=== PATIENT | female | born 1960 | race Caucasian/White ===

== ENCOUNTER 2017-11-15 20:26 | Emergency (ER) | payer MEDICAID, SELFPAY ==
[2017-11-15 20:27] VITALS: BP 164/116; PULSE 93; RESP 24; TEMP 36.3; O2SAT 100; BMI 22.4
--- NOTE | 2017-11-15 21:12 | ED.DCSUM_ITS ---
- ER Visit Summary Date of Service: 11/15/17 Chief Complaint: Allergic reaction History of Present Illness: The patient is a 57 F who presents with allergic reaction that began tonight. Patient denies any new foods, soaps, shampoos, detergents, or fabric softeners. Patient was started on several new medications last week. Patient has been taking them without any problems until tonight. Patient was having difficulty breathing earlier tonight. EMS administered Benadryl and an EpiPen. Patient is feeling better at the present time. Currently, patient denies any shortness of breath. Patient denies any itching at the present time. Patient was complaining of severe pruritus earlier today. Patient denies any difficulty swallowing. Physical Examination: Vital signs are stable. Patient is afebrile. Patient is in no acute distress. Oral mucosa is pink and moist. Oropharynx is clear. Airway is patent. There is no edema noted. Neck is supple. There is no JVD. Heart was regular rate and rhythm. Lungs are clear and equal bilaterally. There is good respiratory effort noted. Abdomen is soft and nontender. Bowel sounds are normal. Cranial nerves II through XII are intact. There are no focal motor or sensory deficits noted. Skin is warm and dry. There is some areas of urticaria noted. There are no vesicles or pustules noted. The remaining physical exam is within normal limits. Emergency Department Course and Treatment: She was given IV fluids. Patient was given Solu-Medrol and Pepcid. CBC and basic metabolic profile were obtained. There is mild leukocytosis of 12.4. The remaining labs were within normal limits. Patient felt better on reevaluation. Patient was given a prescription for prednisone. Patient was instructed to follow-up with her primary care physician in 3-5 days. Patient understood and was agreeable with the plan. All questions were answered. Disposition: Discharge home Impression: Allergic reaction This note was generated with [employer] dictation software. It may contain incorrect words, spelling, and punctuation that were not noted in review of the chart prior to signing ED Disposition - Plan for ED Patient: Disposition: Home or Assisted Living Chief Complaint: Allergic Reaction Diagnosis: Allergic reaction Instructions: ED Allergic Reaction General Other Prescriptions: Prednisone [Deltasone] 60 mg PO DAILY 5 Days #15 tab Referrals: Cheryl Almanza NP-C [Primary Care Provider] -
[2017-11-15] MEDS: MethylPREDNISolone 125 MG/2 ML Vial IV (21:17)
[2017-11-15 21:26] LABS: Basophil# 0.06 X10^3/uL; Basophil% 0.5 % (0-1); Eosinophil# 0.19 X10^3/uL; Eosinophils% 1.5 % (0-5); Hematocrit 42.4 % (37-47); Hemoglobin 14.1 g/dl (12.0-15.0); Lymphocyte % 45.2 % (19-41); Mean Corp Hgb Conc 33.3 g/gl (32-36); Mean Corpuscular Hgb 27.9 pg (27.0-32.0); Mean Corpuscular Volume 83.8 fL (81-99); Mean Platelet Vol. 11.4 fl (6.2-12.0); Monocyte# 1.51 X10^3/uL; Monocyte% 12.2 % (0-10); Neutrophil # 5.01 X10^3/uL (2.7-7.7); Neutrophil % 40.4 % (47-70); Platelet Count 347 K/mm3 (150-450); RBC Distribution Width CV 17.7 % (11.6-14.6); RBC Distribution Width SD 53.8 fl (35.1-43.9); Red Blood Count 5.06 M/mm3 (4.2-5.4); White Blood Count 12.4 K/mm3 (4.4-11.0)
[2017-11-15 21:27] LABS: Differential Indicated SCAN CRITERIA MET; POSITIVE COUNT NO; POSITIVE DIFFERENTIAL YES; POSITIVE MORPHOLOGY NO
[2017-11-15 21:55] LABS: Differential Comment SCANNED
[2017-11-15 22:29] VITALS: BP 142/91; PULSE 95; RESP 14; O2SAT 95
[2017-11-15 22:30] LABS: Anion Gap 8 (5-15); BUN 15 mg/dL (7-18); Calcium,Total 8.4 mg/dL (8.5-10.1); Chloride 110 mmol/L (98-107); Creatinine, Serum 0.83 mg/dL (0.55-1.02); EST Glomerular Filtration Rate 75 mL/min (>60); Est Glom Filt Rate - Afr Amer 91 mL/min (>60); Estimated Creatinine Clearance 65.35 ml/min; Glucose 121 mg/dL (74-106); Potassium 4.3 mmol/L (3.5-5.1); Sodium Level 142 mmol/L (136-145)
[2017-11-15 23:21] VITALS: BP 151/98; PULSE 95; RESP 16; O2SAT 96
[2017-11-15 23:46] VITALS: BP 147/94; PULSE 105; RESP 18; O2SAT 95
== END 2017-11-15 23:47 | disposition home or self-care (01) ==
PROVIDERS: Emergency Provider Emergency Medicine; Family Provider Nurse Practitioner Family; PCP Nurse Practitioner Family
DX: L50.0 Allergic urticaria (principal); R06.00 Dyspnea, unspecified; Z79.899 Other long term (current) drug therapy
CPT/HCPCS: 80048; 85025; 96365; 96375; 99285; J7050; A4216; J3490

== ENCOUNTER 2018-07-11 16:28 | Emergency (ER) | payer MEDICARE, MEDICAID, SELFPAY ==
[2018-07-11 16:29] VITALS: BP 192/129; PULSE 118; RESP 15; TEMP 36.5; O2SAT 98; BMI 21.0
--- NOTE | 2018-07-11 16:48 | EKG12_ITS ---
Test Reason : VOMITTING Blood Pressure : / mmHG Vent. Rate : 099 BPM Atrial Rate : 099 BPM P-R Int : 142 ms QRS Dur : 082 ms QT Int : 412 ms P-R-T Axes : 036 056 065 degrees QTc Int : 528 ms Normal sinus rhythm Possible Left atrial enlargement Nonspecific ST abnormality Prolonged QT Abnormal ECG Confirmed by CYNDY SAHU, LANCE ([id number]), visual effects editor ARTHUR MARTINEZ ([id number] on 07/14/2018 2:31:00 PM Referred By: RAMIREZ Confirmed By:LANCE NAYLOR MD
--- NOTE | 2018-07-11 16:51 | ED.DCSUM_ITS ---
- ER Visit Summary Date of Service: 07/11/18 Chief Complaint: [] Vomiting diarrhea for about 4 days History of Present Illness: The patient is a 58 F [] history of hypertension depression she indicates she had vomiting and diarrhea for 4 days she vomits 4-5 times a day, has 4 or 5 watery diarrheal bowel movements, she has had no exposures to tainted food or sick individuals or antibiotics she is not prone to vomiting diarrhea she has no GI elements no prior abdominal surgeries which indicates for day or 2 she is not taken her blood pressure medicine but she has them at home Physical Examination: [] 190/109 heart rate 110 she seems very anxious General, no distress resting comfortably HEENT is generally unremarkable The neck is supple no adenopathy Cardiovascular, regular rate and rhythm Lungs, clear bilateral Abdomen, soft nontender, there is no rebound guarding organomegaly in any area Extremities, no clubbing cyanosis or edema Neurologic, awake alert answering questions appropriately moving all 4 extremities Test Results: [] Emergency Department Course and Treatment: [] Given her complaints screening labs fluids She is screening labs are all generally unremarkable, she is able to take oral potassium supplementation, her oral blood pressure meds which she kept down she has had no diarrhea since she has been here she has had IV fluids she is feeling better her current blood pressure is 170/80 and her heart rate is about 95 long conversation with her she is feeling better she wants to go home she understands this advance her diet slowly follow-up with her primary care outpatient providers and return for change in symptoms Treatment Plan: [] Disposition: [] Home stable Impression: [] Vomiting and diarrhea resolved etiology here This note was generated with [employer] dictation software. It may contain incorrect words, spelling, and punctuation that were not noted in review of the chart prior to signing ED Disposition - Plan for ED Patient: Chief Complaint: Nausea/Vomiting/Diarrhea Referrals: Cheryl Almanza, MUSIC COMPOSER-C [Primary Care Provider] -
[2018-07-11] MEDS: Ondansetron 4 MG/2 ML Vial IV (16:58)
[2018-07-11] MEDS: Morphine 4 MG/ML Syringe IV (16:58)
[2018-07-11] MEDS: 0.9% Normal Saline 1,000 ML 1000 ML IV (16:58)
[2018-07-11] MEDS: amLODIPine 5 MG Tablet PO (17:05)
[2018-07-11 17:06] VITALS: BP 210/163; PULSE 108; RESP 14; O2SAT 100
[2018-07-11] MEDS: Lisinopril 20 MG Tablet PO (17:06)
[2018-07-11 17:14] LABS: Absolute Lymphocyte Count 0.86 X10^3/ul (0.83-4.51); Basophil# 0.02 X10^3/uL; Basophil% 0.3 % (0-1); Hematocrit 48.8 % (37-47); Hemoglobin 17.3 g/dl (12.0-15.0); Lymphocyte # 0.86 X10^3/ul (4.0); Lymphocyte % 13.2 % (19-41); Mean Corp Hgb Conc 35.5 g/gl (32-36); Mean Corpuscular Hgb 32.1 pg (27.0-32.0); Mean Corpuscular Volume 90.5 fL (81-99); Mean Platelet Vol. 10.8 fl (6.2-12.0); Monocyte# 0.63 X10^3/uL; Monocyte% 9.6 % (0-10); Neutrophil # 5.01 X10^3/uL (2.7-7.7); Neutrophil % 76.7 % (47-70); Platelet Count 122 K/mm3 (150-450); RBC Distribution Width CV 18.1 % (11.6-14.6); RBC Distribution Width SD 60.3 fl (35.1-43.9); Red Blood Count 5.39 M/mm3 (4.2-5.4); White Blood Count 6.5 K/mm3 (4.4-11.0)
[2018-07-11 17:15] LABS: POSITIVE COUNT NO; POSITIVE DIFFERENTIAL NO; POSITIVE MORPHOLOGY NO
[2018-07-11 17:50] LABS: AST(SGOT) 65 U/L (15-37); Alanine Aminotransfer ALT/SGPT 42 U/L (13-56); Albumin, Serum 3.4 g/dL (3.2-5.0); Alkaline Phosphatase 120 U/L (45-117); Anion Gap 15 (5-15); BUN 5 mg/dL (7-18); BUN/Creat Ratio 6.5 RATIO (10-20); Bilirubin, Direct 0.48 mg/dL (0.00-0.30); Calcium,Total 8.6 mg/dL (8.5-10.1); Chloride 89 mmol/L (98-107); Creatinine, Serum 0.76 mg/dL (0.55-1.02); EST Glomerular Filtration Rate 83 mL/min (>60); Est Glom Filt Rate - Afr Amer 100 mL/min (>60); Estimated Creatinine Clearance 70.52 ml/min; Globulin 3.8 g/dL (2.2-4.2); Glucose 137 mg/dL (74-106); Lipase 46 U/L (73-393); Potassium 2.7 mmol/L (3.5-5.1); Protein, Total 7.2 g/dL (6.4-8.2); Sodium Level 134 mmol/L (136-145)
--- NOTE | 2018-07-11 17:56 | ED.RN ---
LAB CALLED CRITICAL RESULT ON THIS PT FOR A POTASSIUM OF 2.7. THIS NURSE NOTIFIED DR BARTHOLOMEW WHO STATED TO PUT IN AN ORDER FOR 40 MEQ OF K-DUR FOR THIS PT
[2018-07-11 18:33] VITALS: BP 172/123; PULSE 95; RESP 16; O2SAT 98
--- NOTE | 2018-07-11 18:48 | DCINST.ED_ITS ---
ED Disposition - Plan for ED Patient: Chief Complaint: Nausea/Vomiting/Diarrhea Instructions: ED Diet Vomiting Diarrhea, ED Food Poison Or Gastroenteritis Prescriptions: Ondansetron [Zofran Odt] 4 mg PO Q8H PRN PRN #10 tab PRN Reason: Nausea Referrals: Cheryl Almanza, TEXTILE CUTTING MACHINE OPERATOR-C [Primary Care Provider] -
[2018-07-11 19:02] VITALS: BP 172/123; PULSE 102; RESP 16; O2SAT 97
== END 2018-07-11 19:07 | disposition home or self-care (01) ==
PROVIDERS: Emergency Provider Emergency Medicine; Family Provider Nurse Practitioner Family; PCP Nurse Practitioner Family
DX: R11.10 Vomiting, unspecified (principal); R19.7 Diarrhea, unspecified; I10 Essential (primary) hypertension; F32.9 Major depressive disorder, single episode, unspecified; Z79.899 Other long term (current) drug therapy
CPT/HCPCS: 80048; 80076; 83690; 84484; 85025; 93005; 96361; 96374; 96375; 99285; J7030; A4216; J2405

== ENCOUNTER 2019-01-17 23:14 | Inpatient (IN) | payer MEDICARE, SELFPAY ==
[2019-01-17 23:15] VITALS: BP 189/162; PULSE 131; RESP 17; TEMP 36.7; O2SAT 96; BMI 24.5
--- NOTE | 2019-01-17 23:41 | EKG12_ITS ---
Test Reason : SUBSTANCE ABUSE Blood Pressure : / mmHG Vent. Rate : 127 BPM Atrial Rate : 127 BPM P-R Int : 126 ms QRS Dur : 070 ms QT Int : 332 ms P-R-T Axes : 045 071 064 degrees QTc Int : 482 ms Sinus tachycardia Low Voltage QRS (Limb Leads) Nonspecific ST abnormality Abnormal ECG Confirmed by ASHUTOSH SAHU, PERRI ([id number]), slot editor HEBERT GARZON ([id number]) on 01/19/2019 9:33:11 AM Referred By: Musa Navarrete Confirmed By:PERRI BOYKIN MD
--- NOTE | 2019-01-17 23:44 | ED.VIS.GEN ---
History of Present Illness Chief Complaint: Substance Abuse Informant: Patient Narrative: She here with her daughter stating that she is withdrawing from narcotics. Her last use was yesterday. She is been using for the last 10 days in a row IV fentanyl. She states she is been using at least twice a day. She also is a chronic alcoholic. She did drink one tall alcoholic beverage today. She states she normally drinks 5 told drinks of beer per day. She does not think she is withdrawing from alcohol. She thinks she is having shakes headaches myalgias sweats coldness nausea and vomiting from withdrawal from the narcotics that she was using. She normally does not use this frequently. Occasional usage of marijuana. Brought in by her daughter for symptom control. No home treatment. - Past Medical History (1) Benign essential HTN Status: Chronic (2) Depression Status: Chronic (3) Gastroesophageal reflux disease Status: Chronic (4) HLD (hyperlipidemia) Status: Chronic Past Medical History - Allergies and Home Meds Allergies/Adverse Reactions: Allergies No Known Allergies Allergy (Verified 01/17/19 23:15) Primary Care Physician: Cheryl Almanza NP-C [Primary Care Provider] - Prior records reviewed: Yes Surgical History: - - Reviewed Smoking Status: Current every day smoker Alcohol: Heavy Drugs: - - See HPI Review of Systems General: Reports: Chills, Sweats. Denies: Fever Eyes: Denies: Visual changes - bilaterally, Diplopia ENT: Denies: Rhinorrhea, Sore throat Cardiovascular: Denies: Chest pain, Palpitations Respiratory: Denies: Dyspnea, Cough, Dyspnea on exertion Gastrointestinal: Reports: Nausea, Vomiting. Denies: Abdominal pain, Diarrhea, Melena, Hematochezia Genitourinary: Denies: Dysuria, Hematuria, Frequency Musculoskeletal: Reports: Myalgias, Arthralgias, Back pain, Extremity Pain Skin: Denies: Rash, Wounds Neurological: Denies: Headache, Weakness, Numbness Physical Exam Vital Signs/Narrative: Vital Signs Temp Pulse Resp BP Pulse Ox 01/17/19 23:15 98.0 F 131 H 17 189/162 H 96 General: Well nourished, Well developed, - - Bell appears shaky. Negative for: No Acute Distress Head: Normocephalic, Atraumatic Eyes: Perrl, EOMI ENT: Moist mucous membranes, No rhinorrhea Neck: Supple, Nontender Cardiovascular: Regular rhythm, No murmurs, Tachycardia. Negative for: Regular rate Respiratory: No distress, CTA bilaterally, Chest nontender Abdomen: Soft, Nontender, Nondistended, Normal bowel sounds Back: Nontender, Normal Inspection Extremities: Nontender, No edema Skin: Normal color, No rash, - - Positive bruising to the bilateral AC upper extremity joints where she injected. No infection. Neurological: Alert, Oriented x3, Cranial nerves II-XII grossly intact, Normal Strength, Normal Sensation, - - Positive tremor Psychological: Agitated. Negative for: Normal affect, Normal Mood Diagnostic/Tx/Re-eval - Medical Decision Making Feel the patient is likely withdrawing from her narcotics. Given IV fluids, Zofran and Ativan and Toradol. EKG shows sinus tachycardia at a rate of 127 without acute ischemia. Lab work obtained. Lab work reviewed. She does have a leukocytosis but I think this is secondary to her withdrawal. Patient given IV fluids and felt much better after treatment. Given a dose of labetalol and hydralazine for her blood pressure. Is come down to 188 systolic. She was discussed with the hospitalist and will be admitted for further evaluation and treatment of her acute narcotic withdrawal. ED Disposition - Plan for ED Patient: Diagnosis: Acute narcotic withdrawal Referrals: Cheryl Almanza NP-C [Primary Care Provider] -
[2019-01-17 23:45] VITALS: BP 194/156; PULSE 127
[2019-01-18] VITALS (22 sets, daily range): BP systolic 115–214; BP diastolic 69–169; PULSE 87–126; RESP 18–22; TEMP 36.4–37.6; O2SAT 95–98; BMI 20.6; BMI 24.6
[2019-01-18] MEDS: Ketorolac 15 MG/ML Vial IV (00:16)
[2019-01-18] MEDS: LORazepam 2 MG/ML Syringe 1 MG IV (00:17)
[2019-01-18] MEDS: Ondansetron 4 MG/2 ML Vial IV ×3 (00:17→19:45)
[2019-01-18 00:30] LABS: Absolute Lymphocyte Count 0.95 X10^3/ul (0.83-4.51); Absolute Neutrophil Count 9.6 X10^3/uL (2.0-7.7); Basophil# 0.02 X10^3/uL; Basophil% 0.2 % (0-1); Hematocrit 46.7 % (37-47); Hemoglobin 16.5 g/dl (12.0-15.0); Lymphocyte # 0.95 X10^3/ul (4.0); Lymphocyte % 8.5 % (19-41); Mean Corp Hgb Conc 35.3 g/gl (32-36); Mean Corpuscular Hgb 29.8 pg (27.0-32.0); Mean Corpuscular Volume 84.4 fL (81-99); Mean Platelet Vol. 9.8 fl (6.2-12.0); Monocyte# 0.49 X10^3/uL; Monocyte% 4.4 % (0-10); Neutrophil # 9.64 X10^3/uL (2.7-7.7); Neutrophil % 86.6 % (47-70); Platelet Count 191 K/mm3 (150-450); RBC Distribution Width CV 17.1 % (11.6-14.6); RBC Distribution Width SD 52.7 fl (35.1-43.9); Red Blood Count 5.53 M/mm3 (4.2-5.4); White Blood Count 11.1 K/mm3 (4.4-11.0)
[2019-01-18 00:31] LABS: POSITIVE COUNT NO; POSITIVE DIFFERENTIAL NO; POSITIVE MORPHOLOGY NO
[2019-01-18] MEDS: 0.9% Normal Saline 1,000 ML 1000 ML IV ×2 (00:36)
[2019-01-18 00:47] LABS: ALB/GLOB Ratio 0.9 RATIO (0.9-2.4); AST(SGOT) 33 U/L (15-37); Alanine Aminotransfer ALT/SGPT 31 U/L (13-56); Albumin, Serum 3.8 g/dL (3.2-5.0); Alkaline Phosphatase 108 U/L (45-117); Anion Gap 8 (5-15); BUN 9 mg/dL (7-18); BUN/Creat Ratio 10.4 RATIO (10-20); Calcium,Total 9.7 mg/dL (8.5-10.1); Chloride 93 mmol/L (98-107); Creatinine, Serum 0.87 mg/dL (0.55-1.02); EST Glomerular Filtration Rate 72 mL/min (>60); Est Glom Filt Rate - Afr Amer 87 mL/min (>60); Estimated Creatinine Clearance 53.84 ml/min; Globulin 4.4 g/dL (2.2-4.2); Glucose 157 mg/dL (74-106); Potassium 3.7 mmol/L (3.5-5.1); Protein, Total 8.2 g/dL (6.4-8.2); Sodium Level 132 mmol/L (136-145)
[2019-01-18 02:02] LABS: Amphetamine Urine VISTA NEGATIVE (<1000 ng/mL); Barbiturate Urine VISTA NEGATIVE (< 200 ng/mL); Benzodiazepine Urine VISTA NEGATIVE (< 200 ng/mL); Cocaine Urine VISTA NEGATIVE (< 300 ng/mL); Ecstacy Urine VISTA NEGATIVE (< 500 ng/mL); Methadone Urine VISTA NEGATIVE (< 300 ng/mL); PCP Urine VISTA NEGATIVE (< 25 ng/mL); THC Urine VISTA NEGATIVE (< 50 ng/mL); Vista UDS pH Range 6
[2019-01-18] MEDS: hydrALAZINE 20 MG/ML Vial IV (02:16)
--- NOTE | 2019-01-18 03:09 | HP.PCM_ITS ---
Problem List (1) EtOH dependence Status: Acute (2) Acute narcotic withdrawal Status: Acute (3) HLD (hyperlipidemia) Status: Chronic (4) Depression Status: Chronic (5) Benign essential HTN Status: Chronic (6) Alcohol withdrawal Status: Acute History of Present Illness Date of Admission: 01/18/19 Chief Complaint: ALCOHOL AND NARCOTIC WITHDRAWAL The patient is a 58 year old F with a significant history of hypertension; depression and anxiety; narcotic dependence and alcohol dependence who presented to the emergency department because of withdrawal symptoms. Patient describes his withdrawal symptoms as light headedness; nausea; vomiting; tremors and chills. Settings have withdrawal started about 4 days ago. She reported drinking 3 tall cans of beer per day. Emergency department doctor reported that patient drinks 5 tall cans of beer per day. At the last time she drank alcohol was 2 days ago. Also she has been using IV fentanyl. The last time she used IV fentanyl was 3 days ago. She is supposed to be on blood pressure medication however she does not take her blood pressure medicines. Patient reported that she does not take any home medicine at all. Past Medical History Past Medical History (Chronic Problems): Chronic Problems HLD (hyperlipidemia) (Chronic) Gastroesophageal reflux disease (Chronic) Depression (Chronic) Benign essential HTN (Chronic) Allergies No Known Allergies Allergy (Verified 01/17/19 23:15) Home Medications: Ambulatory Orders Medication Instructions Recorded Amlodipine [Norvasc] 5 mg PO DAILY 11/15/17 Hydrochlorothiazide [Hctz] 25 mg PO DAILY 11/15/17 Lisinopril 20 mg PO DAILY 11/15/17 Pantoprazole Sodium [Protonix] 40 mg PO DAILY 11/15/17 Surgical History: - - Thyroid cyst surgery; rib removal Lives: With Family Smoking Status: Current every day smoker Tobacco Use: Cigarettes Alcohol: Heavy Drugs: - - See HPI - *Family History Maternal Family History: Family History (Last Updated 01/18/19 @ 04:11 by Musa Navarrete MD) Brother Alcoholism Father CVA (cerebral vascular accident) Review of Systems Constitutional: Reports: Chills. Denies: Fever HEENT: Denies: Head Aches, Sinus Congestion, Sinus Drainage Cardiovascular: Denies: Chest Pain, Palpitations Respiratory: Denies: Cough, Shortness of breath at rest, Sputum production Gastrointestinal: Reports: Nausea, Vomiting. Denies: Abdominal Pain Genitourinary: Denies: Dysuria Musculoskeletal: Denies: Joint Pain, Joint Tenderness Skin: Denies: Rash, Wounds Neurological: Denies: Numbness, Tingling, Focal weakness Psychiatric: Reports: Anxiety, Depression. Denies: Homicidal Ideations, Suicidal Ideations Hematologic/ Lymphatic: Denies: Easy Bruising, Easy Bleeding VTE Information - Inpt Only VTE Present on Admission: No VTE Mechan Device Prophylaxis: None VTE Pharm Prophylaxis ordered?: Yes Patient Problems: Active and Suspected Problems Acute narcotic withdrawal (Acute) EtOH dependence (Acute) Alcohol withdrawal (Acute) - Physical Exam General: Alert, Oriented x3, Cooperative HEENT: Atraumatic, PERRLA, EOMI, Normocephalic Neck: Supple, No JVD, Negative Carotid Bruits Lungs: Clear to auscultation, Normal air movement, Tachypneic Cardiovascular: No murmurs, Tachycardic Abdomen: Bowel Sounds Present, Soft, Non Tender Extremities: No edema, Capillary Refill Less than 3 Seconds Skin: No rashes, No breakdown Musculoskeletal: No Tenderness to Palpation of Joints or Extremities Neurological: Cranial nerves II-XII grossly intact, - - Tremors Psych/Mental Status: Anxious Vital Signs Temp Pulse Resp BP Pulse Ox 98.0 F 87 20 H 188/130 H 96 01/17/19 23:15 01/18/19 02:48 01/18/19 02:48 01/18/19 02:48 01/18/19 02:48 Oxygen Delivery Method Room Air Weight: 58.967 kg Body Mass Index (BMI) 24.5 Laboratory Tests Past 24 Hrs 01/18/19 01/18/19 01/18/19 00:20 00:20 00:20 WBC 11.1 H RBC 5.53 H Hgb 16.5 H Hct 46.7 MCV 84.4 MCH 29.8 MCHC 35.3 RDW 17.1 H RDW Differential 52.7 H Plt Count 191 MPV 9.8 Immature Gran % (Auto) 0.300 Neut % (Auto) 86.6 H Lymph % (Auto) 8.5 L Stark % (Auto) 4.4 Eos % (Auto) 0.0 Baso % (Auto) 0.2 Absolute Neuts (auto) 9.6 H Absolute Lymphs (auto) 0.95 Total Counted Not Reportable Sodium 132 L Potassium 3.7 Chloride 93 L Carbon Dioxide 31.0 Anion Gap 8 BUN 9 Creatinine 0.87 Estim Creat Clear Calc 53.84 Est GFR (MDRD) Af Amer 87 Est GFR (MDRD) Non-Af 72 BUN/Creatinine Ratio 10.4 Glucose 157 H Calcium 9.7 Total Bilirubin 1.60 H AST 33 ALT 31 Alkaline Phosphatase 108 Total Protein 8.2 Albumin 3.8 Globulin 4.4 H Albumin/Globulin Ratio 0.9 Urine Opiates Screen Urine Methadone Screen Ur Barbiturates Screen Ur Phencyclidine Scrn Ur Amphetamines Screen U Methamphetamin-MDMA U Benzodiazepines Scrn Urine Cocaine Screen U Cannabinoids Screen Ur Drug Screen Comment Ethyl Alcohol 4.0 01/18/19 01:40 WBC RBC Hgb Hct MCV MCH MCHC RDW RDW Differential Plt Count MPV Immature Gran % (Auto) Neut % (Auto) Lymph % (Auto) Stark % (Auto) Eos % (Auto) Baso % (Auto) Absolute Neuts (auto) Absolute Lymphs (auto) Total Counted Sodium Potassium Chloride Carbon Dioxide Anion Gap BUN Creatinine Estim Creat Clear Calc Est GFR (MDRD) Af Amer Est GFR (MDRD) Non-Af BUN/Creatinine Ratio Glucose Calcium Total Bilirubin AST ALT Alkaline Phosphatase Total Protein Albumin Globulin Albumin/Globulin Ratio Urine Opiates Screen NEGATIVE Urine Methadone Screen NEGATIVE Ur Barbiturates Screen NEGATIVE Ur Phencyclidine Scrn NEGATIVE Ur Amphetamines Screen NEGATIVE U Methamphetamin-MDMA NEGATIVE U Benzodiazepines Scrn NEGATIVE Urine Cocaine Screen NEGATIVE U Cannabinoids Screen NEGATIVE Ur Drug Screen Comment Ethyl Alcohol Assessment/Plan All Active Problems Acute narcotic withdrawal (Acute) EtOH dependence (Acute) Alcohol withdrawal (Acute) The patient is a 58 year old F with a significant history of hypertension; depression and anxiety; narcotic dependence and alcohol dependence who presented to the emergency department because of withdrawal symptoms attributed to alcohol and fentanyl. Alcohol dependence and withdrawal We will put on [facility] protocol with thiamine; folic acid and Librium. Counselled. Other supportive medications include thiamine; clonidine as needed; scheduled metoprolol; Zofran; and Mirapex. Check magnesium Urine drug screen was unremarkable. Acute narcotic withdrawal. Librium home in supportive medication as above. Hypertension Presently patient does not take any hypertensive medication at home. On presentation her blood pressure was not within goal. This could be due to alcohol withdrawal. Metoprolol as above. Tobacco abuse Nicotine patch ordered Counseled. DVT prophylaxis Subcutaneous Lovenox. Code Visit Inpatient E&M: 19244 Init Hosp L3
--- NOTE | 2019-01-18 03:18 | ED.RN ---
PT UNSURE OF MEDICATIONS AND DOSAGES
[2019-01-18] MEDS: Methocarbamol 750 MG Tablet PO ×3 (04:45→19:40)
[2019-01-18] MEDS: chlordiazePOXIDE 25 MG Capsule PO ×6 (04:45→23:44)
[2019-01-18] MEDS: cloNIDine HCl 0.1 MG Tablet PO ×4 (04:45→19:40)
[2019-01-18] MEDS: Acetaminophen 325 MG Tablet 650 MG PO ×3 (04:46→21:51)
[2019-01-18] MEDS: Metoprolol Tartrate 50 MG Tablet PO ×3 (04:54→21:55)
[2019-01-18] MEDS: proCHLORPERazine 10 MG/2 ML Vial 5 MG IV (06:16)
--- NOTE | 2019-01-18 06:30 | NURSING ---
spoke to pt's dtr, christopher ([phone]) to inform her pt had been admitted.
[2019-01-18] MEDS: Multivitamins,Therapeutic Tablet 1 TABLET PO (08:24)
[2019-01-18] MEDS: Thiamine Hydrochloride 100 MG Tablet PO (08:24)
[2019-01-18] MEDS: Folic Acid 1 MG Tablet PO (08:24)
[2019-01-18] MEDS: amLODIPine 5 MG Tablet PO (08:24)
[2019-01-18] MEDS: Lisinopril 20 MG Tablet PO (08:24)
--- NOTE | 2019-01-18 10:41 | CASEMGMT ---
Social Work Note [facility] consulted to see pt. SW to continue to follow. Felicia Cheema EARTH AUGER OPERATOR, BENEFITS ANALYST
--- NOTE | 2019-01-18 12:16 | NEWVISION ---
[facility] met with patient to discuss aftercare. Patient reports that she feels awful, is very wrestles, and doesn't know what she wants to do after she gets out. [facility] provided office phone number to call if she feels interested in assistance with aftercare and to become part of [facility] y end of day. Otherwise, we would check with her tomorrow to discuss.
--- NOTE | 2019-01-18 14:56 | PCM.HOSP.N ---
Hospitalist Note Patient was seen and examined today, she told this examiner that she did not abuse any drugs other than alcohol-from the patient's medical record appears that she was also using IV fentanyl when she was admitted. I am not sure the patient needs ongoing IV fluids, patient states she is able to drink fluids. According to nursing however, patient is not drinking or eating much. I have decided to leave her IV in for now along with IV fluids I will reassess her tomorrow.
[2019-01-18] MEDS: Pramipexole Di-HCl 0.25 MG Tablet PO (19:40)
[2019-01-18] MEDS: Dicyclomine 10 MG Capsule 20 MG PO (19:40)
[2019-01-18] MEDS: 0.9% NaCl Peripheral Flush Adult/Peds IV (19:45)
[2019-01-18] MEDS: Mag Hydrox/Al Hydrox/Simeth 30 ML UDC PO (19:45)
[2019-01-18] MEDS: Loperamide 2 MG Capsule PO ×2 (21:50→23:44)
[2019-01-18] MEDS: hydrOXYzine PAM 25 MG Capsule 50 MG PO (21:50)
[2019-01-18] MEDS: Menthol/Lanolin/Calamine/Znox 113 GM Tube 1 APPLIC TOPICAL (21:55)
[2019-01-19] VITALS (12 sets, daily range): BP systolic 90–119; BP diastolic 68–89; PULSE 68–118; RESP 16–20; TEMP 36.1–37.2; O2SAT 95–99
[2019-01-19] MEDS: proCHLORPERazine 10 MG/2 ML Vial 5 MG IV ×2 (00:55→13:49)
[2019-01-19] MEDS: 0.9% NaCl Peripheral Flush Adult/Peds IV ×3 (00:55→13:49)
[2019-01-19] MEDS: Methocarbamol 750 MG Tablet PO ×2 (02:17→08:30)
[2019-01-19] MEDS: Loperamide 2 MG Capsule PO ×2 (02:17→08:30)
[2019-01-19] MEDS: Dicyclomine 10 MG Capsule 20 MG PO ×3 (02:20→21:50)
[2019-01-19] MEDS: Ondansetron 4 MG/2 ML Vial IV (05:45)
[2019-01-19] MEDS: chlordiazePOXIDE 25 MG Capsule PO ×3 (05:45→21:50)
[2019-01-19 06:59] LABS: Anion Gap 11 (5-15); BUN 28 mg/dL (7-18); BUN/Creat Ratio 35.2 RATIO (10-20); Calcium,Total 8.6 mg/dL (8.5-10.1); Chloride 93 mmol/L (98-107); EST Glomerular Filtration Rate 79 mL/min (>60); Est Glom Filt Rate - Afr Amer 95 mL/min (>60); Estimated Creatinine Clearance 58.55 ml/min; Glucose 125 mg/dL (74-106); Potassium 2.9 mmol/L (3.5-5.1); Sodium Level 135 mmol/L (136-145)
[2019-01-19] MEDS: Lisinopril 20 MG Tablet PO (08:29)
[2019-01-19] MEDS: amLODIPine 5 MG Tablet PO (08:29)
[2019-01-19] MEDS: Thiamine Hydrochloride 100 MG Tablet PO (08:29)
[2019-01-19] MEDS: Multivitamins,Therapeutic Tablet 1 TABLET PO (08:29)
[2019-01-19] MEDS: Pramipexole Di-HCl 0.25 MG Tablet PO (08:29)
[2019-01-19] MEDS: Folic Acid 1 MG Tablet PO (08:29)
[2019-01-19] MEDS: Acetaminophen 325 MG Tablet 650 MG PO ×2 (08:30→21:50)
--- NOTE | 2019-01-19 09:56 | CASEMGMT ---
Social Work Note Per Ailyn with [facility], pt is not interested in any counseling or substance abuse resources so pt is not [facility]. SW met with pt. SW introduced self and role at [facility]. Pt is alert and orientated, sleepy, and states that she is in pain. Pt states that she has been living with her daughter. Pt again denied wanting any counseling or substance abuse resources. Felicia Cheema RETAIL ADMINISTRATIVE ASSISTANT, QUARRY WORKER
--- NOTE | 2019-01-19 12:58 | NEWVISION ---
Patient refuses inpatient or outpatient care for her substance abuse, patient provided resources.
[2019-01-19] MEDS: Menthol/Lanolin/Calamine/Znox 113 GM Tube 1 APPLIC TOPICAL ×2 (14:39→21:32)
--- NOTE | 2019-01-19 17:41 | PCM.PROGNOTE ---
Patient Problems: Active and Suspected Problems Acute narcotic withdrawal (Acute) EtOH dependence (Acute) Alcohol withdrawal (Acute) Subjective: Patient was seen and examined today, she has refused to follow-up with alcohol detox program as an outpatient, patient still seems confused at times today, she denied using any fentanyl although this was documented on her admission to the hospital. I talked briefly with her daughter, her daughter states that the patient should go back to her brother's house to live and I told her that it was beyond need to tell the patient where she could and could not go at the time of discharge. Daughter seemed understand this and states that the patient has had a drinking problem for many years and would probably go back to drinking when she is released from the hospital. I was supposed to meet the daughter in the patient's room this afternoon but the daughter never showed. - Physical Exam General: Alert, Cooperative, No apparent distress, Well developed, Confused HEENT: Atraumatic, PERRLA, EOMI, Normocephalic Oral: Moist Mucosa Neck: Supple, No JVD, Trachea Midline, Thyroid Normal Size and Texture Lungs: Clear to auscultation, Normal air movement, No rhonchi, No wheeze, No rales Cardiovascular: Regular rate, Regular Rhythm, Normal S1, Normal S2, No murmurs, No Ectopic Activity, PMI Normal, No rub noted, No Gallop Abdomen: Bowel Sounds Present, Soft, Non Tender, Non-Distended, No hernias noted Extremities: No clubbing, No cyanosis, No edema, Capillary Refill Less than 3 Seconds Skin: No rashes, No breakdown Musculoskeletal: No Tenderness to Palpation of Joints or Extremities Neurological: Cranial nerves II-XII grossly intact, Neuro grossly intact, Sensory exam intact to light touch and pain Psych/Mental Status: - - Patient is alert but has mild confusion, she answers some questions appropriately Vital Signs Temp Pulse Resp BP Pulse Ox 97 F L 118 H 20 H 108/73 99 01/19/19 17:36 01/19/19 17:36 01/19/19 17:36 01/19/19 17:36 01/19/19 14:44 Oxygen Delivery Method Room Air Weight: 49.532 kg Body Mass Index (BMI) 20.6 Intake and Output for Last 24 Hours 01/17/19 01/18/19 01/19/19 23:59 23:59 23:59 Intake Total 3912 / 3912 650 / 650 Output Total 300 / 300 Balance 3612 / 3612 650 / 650 Laboratory Tests Past 24 Hrs 01/19/19 05:35 Sodium 135 L Potassium 2.9 L Chloride 93 L Carbon Dioxide 31.0 Anion Gap 11 BUN 28 H Creatinine 0.80 Estim Creat Clear Calc 58.55 Est GFR (MDRD) Af Amer 95 Est GFR (MDRD) Non-Af 79 BUN/Creatinine Ratio 35.2 H Glucose 125 H Calcium 8.6 Medical Necessity - Tobacco Use Smoking Status: Current every day smoker Tobacco Use: Cigarettes Assessment/Plan All Active Problems Acute narcotic withdrawal (Acute) EtOH dependence (Acute) Alcohol withdrawal (Acute) #1 acute alcohol withdrawal-continue supportive care and medications #2 encephalopathy secondary to acute alcohol withdrawal #3 narcotic abuse/addiction-patient will remain on present medications. I anticipate the patient will be discharged to home when she is medically stable. Code Visit Inpatient E&M: 01248 Subs Hosp L2
--- NOTE | 2019-01-19 18:08 | NURSING ---
patient on phone with daughter, and now pt wants to detox. Will let case mgmt know tomorrow.
[2019-01-19] MEDS: Metoprolol Tartrate 50 MG Tablet PO (21:33)
[2019-01-19] MEDS: Mag Hydrox/Al Hydrox/Simeth 30 ML UDC PO (21:50)
[2019-01-19] MEDS: hydrOXYzine PAM 25 MG Capsule 50 MG PO (21:50)
[2019-01-19 21:51] LABS: Hematocrit 44.5 % (37-47); Hemoglobin 15.5 g/dl (12.0-15.0)
[2019-01-19] MEDS: 0.9% Normal Saline 1,000 ML 999 ML IV (22:45)
[2019-01-20] VITALS (14 sets, daily range): BP systolic 86–137; BP diastolic 56–98; PULSE 70–98; RESP 16–18; TEMP 36.6–37.2; O2SAT 97–99
[2019-01-20] MEDS: 0.9% Normal Saline 1,000 ML 100 ML IV (00:22)
[2019-01-20] MEDS: 0.9% NaCl Peripheral Flush Adult/Peds IV (00:22)
[2019-01-20] MEDS: Loperamide 2 MG Capsule PO (02:13)
[2019-01-20 05:26] LABS: Hematocrit 37.4 % (37-47); Hemoglobin 12.3 g/dl (12.0-15.0)
[2019-01-20 07:32] LABS: Anion Gap 4 (5-15); BUN 55 mg/dL (7-18); BUN/Creat Ratio 57.4 RATIO (10-20); Calcium,Total 7.8 mg/dL (8.5-10.1); Chloride 101 mmol/L (98-107); Creatinine, Serum 0.96 mg/dL (0.55-1.02); EST Glomerular Filtration Rate 64 mL/min (>60); Est Glom Filt Rate - Afr Amer 77 mL/min (>60); Estimated Creatinine Clearance 48.79 ml/min; Glucose 105 mg/dL (74-106); Potassium 3.3 mmol/L (3.5-5.1); Sodium Level 129 mmol/L (136-145)
--- NOTE | 2019-01-20 09:05 | CON.PCM_ITS ---
Problem List (1) Coffee ground emesis Status: Acute Reason for Consult Date of Consultation: 01/20/19 Reason for Consultation: Coffee-ground emesis History of Present Illness: The patient is a 58 year old F who is here for polysubstance abuse recovery. She was admitted for detoxification. She had one episode of coffee-ground emesis yesterday evening. She complains of epigastric pain today. She states that she had esophageal problems in the past where she was unable to swallow and had to have a feeding tube. She also states that she had a history of gastric ulcers and has been off of her PPI for at least 6 months. She also had a melanotic stool this morning. Past Medical History Past Medical History (Chronic Problems): Chronic Problems HLD (hyperlipidemia) (Chronic) Gastroesophageal reflux disease (Chronic) Depression (Chronic) Benign essential HTN (Chronic) Allergies No Known Allergies Allergy (Verified 01/17/19 23:15) Home Medications: Ambulatory Orders Medication Instructions Recorded Amlodipine [Norvasc] 5 mg PO DAILY 11/15/17 Hydrochlorothiazide [Hctz] 25 mg PO DAILY 11/15/17 Lisinopril 20 mg PO DAILY 11/15/17 Pantoprazole Sodium [Protonix] 40 mg PO DAILY 11/15/17 Surgical History: - - Thyroid cyst surgery; rib removal Lives: With Family Smoking Status: Current every day smoker Tobacco Use: Cigarettes Alcohol: Heavy Drugs: - - See HPI - *Family History Maternal Family History: Family History (Last Updated 01/18/19 @ 04:11 by Musa Navarrete MD) Brother Alcoholism Father CVA (cerebral vascular accident) Review of Systems Constitutional: Denies: Anorexia, Chills, Fever Cardiovascular: Denies: Chest Pain Respiratory: Denies: Cough Gastrointestinal: Reports: Abdominal Pain, Hematemesis, Nausea, Melena Musculoskeletal: Denies: Joint Tenderness Skin: Denies: Jaundice Hematologic/ Lymphatic: Denies: Anemia Patient Problems: Active and Suspected Problems Acute narcotic withdrawal (Acute) EtOH dependence (Acute) Alcohol withdrawal (Acute) Coffee ground emesis (Acute) - Physical Exam General: Alert, Cooperative, No apparent distress HEENT: Atraumatic Neck: No JVD Lungs: Normal air movement Cardiovascular: Regular rate, Regular Rhythm Abdomen: Soft, Non-Distended, Tender Extremities: No clubbing Skin: No rashes Musculoskeletal: No Muscle Wasting Vital Signs Temp Pulse Resp BP Pulse Ox 98.2 F 92 18 101/68 97 01/20/19 02:24 01/20/19 02:24 01/20/19 02:24 01/20/19 02:24 01/19/19 21:12 Oxygen Delivery Method Room Air Weight: 109 lb 3.19 oz Body Mass Index (BMI) 20.6 Intake and Output for Last 24 Hours 01/18/19 01/19/19 01/20/19 23:59 23:59 23:59 Intake Total 3912 / 3912 650 / 650 1778 / 1778 Output Total 300 / 300 Balance 3612 / 3612 650 / 650 1778 / 1778 Laboratory Tests Past 24 Hrs 01/19/19 01/20/19 01/20/19 05:35 05:15 05:15 Hgb 15.5 H 12.3 Hct 44.5 37.4 Sodium 129 L Potassium 3.3 L Chloride 101 Carbon Dioxide 24.0 Anion Gap 4 L BUN 55 H Creatinine 0.96 Estim Creat Clear Calc 48.79 Est GFR (MDRD) Af Amer 77 Est GFR (MDRD) Non-Af 64 BUN/Creatinine Ratio 57.4 H Glucose 105 Calcium 7.8 L Assessment/Plan All Active Problems Acute narcotic withdrawal (Acute) EtOH dependence (Acute) Alcohol withdrawal (Acute) Coffee ground emesis (Acute) 58-year-old female with possible upper GI bleed 1. Patient had hemoglobin of 12 this morning. She had coffee-ground emesis yesterday evening and melanotic stools this morning. She is still complaining of epigastric pain. She has been started on a PPI. 2. Plan for EGD this morning. I explained that if this bleeding was from esophageal varices I would be unable to help her and she would need to transfer to a tertiary care facility. I explained that if there was gastric ulcer bleeding I may be able to injected or clip it. 3. I explained endoscopy in detail to the patient. I explained the risks including but not limited to stroke or heart attack with anesthesia, perforation of the GI tract, bleeding, infection. I explained that any of these could necessitate further emergency surgery. The patient understands and all questions were answered sufficiently. The patient wishes to proceed with procedure. Be Watt MD Pager: [facility] [address] [place] [address], [address] [place] [address] Office:
--- NOTE | 2019-01-20 09:50 | OP.ENDO_ITS ---
01/20/2019 Cheryl Almanza Re : Upper GI endoscopy procedure for Arabella Buchanan Dear Archie This procedure was performed on Sunday, January 20, 2019. My impressions and recommendations are as follows: Impressions : - Clotted blood at the gastroesophageal junction. - Multiple non-bleeding duodenal ulcers with no stigmata of bleeding. - The examination was otherwise normal. - No specimens collected. Recommendations : - [facility]. - Resume regular diet. - Continue present medications. My findings are described in the full procedure note, which is enclosed. If I can be of further assistance, please feel free to contact me at Doctor phone number(s): , Work: . Sincerely, Be Watt MD 01/20/2019 9:50:14 AM This report has been signed electronically.
--- NOTE | 2019-01-20 12:06 | CASEMGMT ---
As per physician, pt's daughter was to meet w/physician and she did not show up. It is also reported she is to come in today to citrus picker pt, but she has not been in yet. PAVEL and Ailyn from [facility] spoke w/pt in regard to substance abuse, and was given resources. As per nursing, pt is confused at present. PAVEL asked supercharge repair supervisor if daughter is to come in or call in to get her number, as we do not have a working number for her. If pt is still here Tuesday, SW can follow up again on Tuesday. Without knowing daughter's name or number, SW has no way to get in touch w/her today. SOFIA Alvarado
[2019-01-20] MEDS: Metoprolol Tartrate 50 MG Tablet PO ×2 (12:19→21:04)
[2019-01-20] MEDS: Pantoprazole Sodium 20 MG Tablet PO ×2 (12:19→21:15)
[2019-01-20] MEDS: Sucralfate 1 GM Tablet PO ×3 (12:19→21:15)
[2019-01-20] MEDS: amLODIPine 5 MG Tablet PO (12:20)
[2019-01-20] MEDS: Multivitamins,Therapeutic Tablet 1 TABLET PO (12:20)
[2019-01-20] MEDS: Lisinopril 20 MG Tablet PO (12:21)
[2019-01-20] MEDS: Menthol/Lanolin/Calamine/Znox 113 GM Tube 1 APPLIC TOPICAL ×2 (12:21→21:16)
--- NOTE | 2019-01-20 12:55 | PCM.PROGNOTE ---
Patient Problems: Active and Suspected Problems Acute narcotic withdrawal (Acute) EtOH dependence (Acute) Alcohol withdrawal (Acute) Coffee ground emesis (Acute) Subjective: Patient was seen and examined earlier today, she had an episode of coffee-ground emesis last night and was seen in consultation by general surgery, general surgery took the patient for an EGD today which revealed distal esophagitis with evidence of old bleeding, no overt varices were seen however, patient also has some duodenal ulcerations. General surgery recommended use of Carafate and continued PPI. I have not been able to discuss discharge planning with the patient, yesterday she refused to consider [facility] program but there was a notation later on by nursing that the patient changed her mind after discussing it with her daughter. - Physical Exam General: Alert, Cooperative, No apparent distress, Well developed, Well nourished HEENT: Atraumatic, PERRLA, EOMI, Normocephalic Oral: Moist Mucosa Neck: Supple, No JVD, No Nuchal Rigidity, Trachea Midline, Thyroid Normal Size and Texture Lungs: Clear to auscultation, Normal air movement, No rhonchi, No wheeze, No rales Cardiovascular: Regular rate, Regular Rhythm, Normal S1, Normal S2, No murmurs, No Ectopic Activity, PMI Normal, No rub noted Abdomen: Bowel Sounds Present, Soft, Non Tender, Non-Distended, No hernias noted Extremities: No clubbing, No cyanosis, No edema, Capillary Refill Less than 3 Seconds Skin: No rashes, No breakdown Musculoskeletal: No Tenderness to Palpation of Joints or Extremities Neurological: Cranial nerves II-XII grossly intact, Neuro grossly intact, Sensory exam intact to light touch and pain, Coordination normal Psych/Mental Status: Appropriate, Flat Affect Vital Signs Temp Pulse Resp BP Pulse Ox 99.0 F 88 16 109/68 97 01/20/19 10:05 01/20/19 12:19 01/20/19 10:05 01/20/19 10:05 01/20/19 10:05 Oxygen Delivery Method Room Air Weight: 49.532 kg Body Mass Index (BMI) 20.6 Intake and Output for Last 24 Hours 01/18/19 01/19/19 01/20/19 23:59 23:59 23:59 Intake Total 3912 / 3912 650 / 650 2278 / 2278 Output Total 300 / 300 Balance 3612 / 3612 650 / 650 2278 / 1310 Laboratory Tests Past 24 Hrs 01/19/19 01/20/19 01/20/19 05:35 05:15 05:15 Hgb 15.5 H 12.3 Hct 44.5 37.4 Sodium 129 L Potassium 3.3 L Chloride 101 Carbon Dioxide 24.0 Anion Gap 4 L BUN 55 H Creatinine 0.96 Estim Creat Clear Calc 48.79 Est GFR (MDRD) Af Amer 77 Est GFR (MDRD) Non-Af 64 BUN/Creatinine Ratio 57.4 H Glucose 105 Calcium 7.8 L Medical Necessity - Tobacco Use Smoking Status: Current every day smoker Tobacco Use: Cigarettes Assessment/Plan All Active Problems Acute narcotic withdrawal (Acute) EtOH dependence (Acute) Alcohol withdrawal (Acute) Coffee ground emesis (Acute) #1 acute alcohol withdrawal-continue supportive care and medications, I will need to discuss discharge planning with the patient tomorrow #2 encephalopathy secondary to acute alcohol withdrawal, this seems to be improved today, patient is more alert and appropriate #3 narcotic abuse/addiction-patient will remain on present medications. #4 distal esophagitis-continue PPI, Carafate was added by general surgery #5 duodenal ulcerations-continue PPI, Carafate was added by general surgery #6 acute blood loss anemia-secondary to distal esophagitis and duodenal ulcerations, no treatment at this time #7 hyponatremia-BMP will be rechecked tomorrow #8 hypokalemia-recheck BMP tomorrow, I will give potassium supplementation today Code Visit Inpatient E&M: 77116 Subs Hosp L2
[2019-01-20] MEDS: Acetaminophen 325 MG Tablet 650 MG PO (21:15)
[2019-01-21] VITALS (7 sets, daily range): BP systolic 127–143; BP diastolic 88–94; PULSE 83–96; RESP 16–20; TEMP 36.7–37.1; O2SAT 94–99
[2019-01-21] MEDS: chlordiazePOXIDE 25 MG Capsule PO ×2 (00:58→21:44)
[2019-01-21 06:35] LABS: Hematocrit 30.9 % (37-47); Hemoglobin 10.4 g/dl (12.0-15.0)
[2019-01-21] MEDS: Sucralfate 1 GM Tablet PO ×4 (06:48→21:44)
[2019-01-21 07:05] LABS: Anion Gap 3 (5-15); BUN 28 mg/dL (7-18); BUN/Creat Ratio 45.4 RATIO (10-20); Calcium,Total 8.3 mg/dL (8.5-10.1); Chloride 103 mmol/L (98-107); Creatinine, Serum 0.62 mg/dL (0.55-1.02); EST Glomerular Filtration Rate 106 mL/min (>60); Est Glom Filt Rate - Afr Amer 128 mL/min (>60); Estimated Creatinine Clearance 75.54 ml/min; Glucose 92 mg/dL (74-106); Potassium 3.3 mmol/L (3.5-5.1); Sodium Level 136 mmol/L (136-145)
[2019-01-21] MEDS: Multivitamins,Therapeutic Tablet 1 TABLET PO (08:09)
[2019-01-21] MEDS: Lisinopril 20 MG Tablet PO (08:10)
[2019-01-21] MEDS: Metoprolol Tartrate 50 MG Tablet PO ×2 (08:10→21:44)
[2019-01-21] MEDS: amLODIPine 5 MG Tablet PO (08:10)
[2019-01-21] MEDS: Menthol/Lanolin/Calamine/Znox 113 GM Tube 1 APPLIC TOPICAL ×2 (08:11→21:50)
[2019-01-21] MEDS: Pantoprazole Sodium 20 MG Tablet PO ×2 (08:14→21:44)
[2019-01-21] MEDS: Acetaminophen 325 MG Tablet 650 MG PO ×2 (12:39→21:44)
--- NOTE | 2019-01-21 17:32 | PN_ITS ---
Patient Problems: Active and Suspected Problems Acute narcotic withdrawal (Acute) EtOH dependence (Acute) Alcohol withdrawal (Acute) Coffee ground emesis (Acute) Subjective: Patient was seen and examined today, she was walking in the [facility] and physical therapy states that she should go home with a wheeled walker. Patient denies us ing fentanyl prior to this admission, she does freely admit that she is a heavy drinker. She states her daughter is a heroin addict. Her daughter has not contacted her today but she has talked to her brother, she plans to go home with her brother. She is not interested in alcohol detox at this time - Physical Exam General: Alert, Oriented x3, Cooperative, No apparent distress, Well developed HEENT: Atraumatic, PERRLA, EOMI, Normocephalic Oral: Moist Mucosa Neck: Supple, Trachea Midline, Thyroid Normal Size and Texture Lungs: Clear to auscultation, Normal air movement, No rhonchi, No wheeze, No rales Cardiovascular: Regular rate, Regular Rhythm, Normal S1, Normal S2, No murmurs, No Ectopic Activity Abdomen: Bowel Sounds Present, Soft, Non Tender, Non-Distended, No hernias noted Extremities: No clubbing, No cyanosis, No edema, Capillary Refill Less than 3 Seconds Skin: No rashes, No breakdown Musculoskeletal: No Tenderness to Palpation of Joints or Extremities Neurological: Cranial nerves II-XII grossly intact, Neuro grossly intact, Sensory exam intact to light touch and pain, Coordination normal Psych/Mental Status: Normal Affect, Appropriate, Alert and oriented to time, place, person, mood and affect Vital Signs Temp Pulse Resp BP Pulse Ox 98.2 F 83 18 138/88 H 94 01/21/19 14:00 01/21/19 14:00 01/21/19 14:00 01/21/19 14:00 01/21/19 14:00 Oxygen Delivery Method Room Air Weight: 49.532 kg Body Mass Index (BMI) 20.6 Intake and Output for Last 24 Hours 01/19/19 01/20/19 01/21/19 23:59 23:59 23:59 Intake Total 650 / 650 4628 / 4628 1025 / 1025 Balance 650 / 650 4628 / 4628 1025 / 1025 Laboratory Tests Past 24 Hrs 01/21/19 01/21/19 05:45 05:45 Hgb 10.4 L Hct 30.9 L Sodium 136 Potassium 3.3 L Chloride 103 Carbon Dioxide 30.0 Anion Gap 3 L BUN 28 H Creatinine 0.62 Estim Creat Clear Calc 75.54 Est GFR (MDRD) Af Amer 128 Est GFR (MDRD) Non-Af 106 BUN/Creatinine Ratio 45.4 H Glucose 92 Calcium 8.3 L Medical Necessity - Tobacco Use Smoking Status: Current every day smoker Tobacco Use: Cigarettes Assessment/Plan All Active Problems Acute narcotic withdrawal (Acute) EtOH dependence (Acute) Alcohol withdrawal (Acute) Coffee ground emesis (Acute) #1 acute alcohol withdrawal-patient is alert and oriented today, I believe the acute phase of her alcohol withdrawal is completed, I think she is safe to be discharged in the morning, again she will need durable medical equipment according to physical therapy. #2 encephalopathy secondary to acute alcohol withdrawal, this seems to be improved today, I believe patient is either at or near her baseline mental status #3 distal esophagitis-continue PPI, Carafate was added by general surgery #4 duodenal ulcerations-continue PPI, Carafate was added by general surgery #5 acute blood loss anemia-secondary to distal esophagitis and duodenal ulcerations, no treatment at this time #6 hyponatremia corrected #7 hypokalemia, I will give the patient oral potassium today Code Visit Inpatient E&M: 10157 Subs Hosp L2
[2019-01-22 02:15] VITALS: BP 132/83; PULSE 77; RESP 16; TEMP 36.8; O2SAT 100
[2019-01-22] MEDS: Nicotine Polacrilex 2 MG GUM PO (03:47)
[2019-01-22 04:24] LABS: Bacteria 0 SEEN /hpf (None Seen); Mucous, Urine 0 SEEN /hpf (<or=2+); Red Blood Cells-Urine 0 SEEN /hpf (0-5)
[2019-01-22 04:57] LABS: Color, Urine Yellow (Yellow); Glucose, Dipstick Normal (Normal); Ketone-Dipstick Negative (Negative); Leukocyte Esterase-Dipstick 500 /ul (Negative); Nitrite-Dipstick Negative (Negative); Occult Blood-Urine 10 /ul (Negative); Protein-Dipstick 15 mg/dl (Negative); Squamous Epithelial Cells - UA 0-5 SEEN /hpf (5-10); Urine Bilirubin Dipstick Negative (Negative); Urine Clarity Clear (Clear); Urine Urobilinogen 1 mg/dl (Normal); White Blood Cells 5-10 SEEN /hpf (0-5)
[2019-01-22] MEDS: Sucralfate 1 GM Tablet PO ×3 (06:13→16:00)
[2019-01-22] MEDS: chlordiazePOXIDE 25 MG Capsule PO (06:13)
[2019-01-22 08:21] VITALS: BP 156/111; PULSE 81; RESP 18; TEMP 37.1; O2SAT 95
[2019-01-22] MEDS: amLODIPine 5 MG Tablet PO (08:34)
[2019-01-22 08:35] VITALS: PULSE 82
[2019-01-22] MEDS: Metoprolol Tartrate 50 MG Tablet PO (08:35)
[2019-01-22] MEDS: Lisinopril 20 MG Tablet PO (08:35)
[2019-01-22] MEDS: Multivitamins,Therapeutic Tablet 1 TABLET PO (08:35)
[2019-01-22] MEDS: Menthol/Lanolin/Calamine/Znox 113 GM Tube 1 APPLIC TOPICAL (08:36)
[2019-01-22] MEDS: Pantoprazole Sodium 20 MG Tablet PO (08:39)
--- NOTE | 2019-01-22 10:04 | PCM.DC ---
- Discharge Diagnoses Current Active Problems: Current Active and Chronic Problems Acute narcotic withdrawal (Acute) EtOH dependence (Acute) Alcohol withdrawal (Acute) Coffee ground emesis (Acute) You will use the following diet at home:: No restrictions Your food should be the consistency of: Regular Your liquids should be the consistency of: Regular/Thin Discharge Activity: Return to Normal Activity Weight Bearing Status: Full weight bearing Allergies/Adverse Reactions: Allergies No Known Allergies Allergy (Verified 01/17/19 23:15) Medications to take at Discharge Amlodipine [Norvasc] 5 mg PO DAILY 11/15/17 Hydrochlorothiazide [Hctz] 25 mg PO DAILY 11/15/17 Lisinopril 20 mg PO DAILY 11/15/17 Pantoprazole Sodium [Protonix] 40 mg PO DAILY 11/15/17 Sucralfate [Carafate] 1 gm PO 4X/DAY #60 tab 01/22/19 The following prescriptions were given: Sucralfate [Carafate] 1 gm PO 4X/DAY #60 tab Primary Care Physician: Cheryl Almanza CATALYST OPERATOR GASOLINE-C [Primary Care Provider] - Please follow up with your Primary Care Physician in: in 10 days Test Results: Test results from this visit will be discussed in further detail at your follow-up appointment, if applicable.
--- NOTE | 2019-01-22 10:07 | DCINST_ITS ---
- Discharge Diagnoses Current Active Problems: Current Active and Chronic Problems Acute narcotic withdrawal (Acute) EtOH dependence (Acute) Alcohol withdrawal (Acute) Coffee ground emesis (Acute) You will use the following diet at home:: No restrictions Your food should be the consistency of: Regular Your liquids should be the consistency of: Regular/Thin Discharge Activity: Return to Normal Activity Weight Bearing Status: Full weight bearing Allergies/Adverse Reactions: Allergies No Known Allergies Allergy (Verified 01/17/19 23:15) Medications to take at Discharge Amlodipine [Norvasc] 5 mg PO DAILY 11/15/17 Hydrochlorothiazide [Hctz] 25 mg PO DAILY 11/15/17 Lisinopril 20 mg PO DAILY 11/15/17 Pantoprazole Sodium [Protonix] 40 mg PO DAILY 11/15/17 Sucralfate [Carafate] 1 gm PO 4X/DAY #60 tab 01/22/19 The following prescriptions were given: Sucralfate [Carafate] 1 gm PO 4X/DAY #60 tab Primary Care Physician: Cheryl Almanza FORMULA ROOM WORKER-C [Primary Care Provider] - Please follow up with your Primary Care Physician in: in 10 days Test Results: Test results from this visit will be discussed in further detail at your follow- up appointment, if applicable.
--- NOTE | 2019-01-22 10:13 | DS.PCM_ITS ---
Discharge Date and Diagnosis - Problem List Patient Problems: Active and Suspected Problems Acute narcotic withdrawal (Acute) EtOH dependence (Acute) Alcohol withdrawal (Acute) Coffee ground emesis (Acute) Date of Admission: 01/18/19 Date of Discharge: 01/22/19 - Primary Discharge Diagnosis Active and Suspected Problems Alcohol withdrawal (Acute) ETOH dependence Duodenal ulcers Distal esophagitis Hypertension Acute blood loss anemia secondary to duodenal ulcers and distal esophagitis - Secondary Discharge Diagnosis Chronic Problems HLD (hyperlipidemia) (Chronic) Gastroesophageal reflux disease (Chronic) Depression (Chronic) Benign essential HTN (Chronic) Hospital Course and Treatment Consultations 01/18/19 04:08 Consult: [place] Routine Consulting Provider: Consulted Physician Type:: Other * Specify below * Reason for consult:: Alcohol and narcotic withdrawal. Procedures: EGD Summary of Care Provided: The patient is a 58 year old F who was seen in the emergency room at [facility] after being brought in by her daughter due to withdrawal symptoms but the daughter stated was narcotics. Patient also has a long history of excessive drinking which is chronic. Patient complained of having shakes and headaches and sweats and nausea and vomiting. Initially it was documented in the emergency room that the patient was withdrawing from narcotics but, later on during the patient's hospital course she vehemently denied using narcotics. Kenn bautista was admitted to [place] [address] for alcohol and narcotic withdrawal, medications were administered for withdrawal and the patient became confused and had encephalopathy. She also had an episode of coffee-ground emesis and was seen by general surgery who performed an EGD which showed duodenal ulcers and distal esophagitis. Patient also was placed on additional blood pressure medications for control of her blood pressure. On 01/21/2019, patient was interviewed and she vehemently denied using any narcotics although she did state that she is a heavy drinker. Patient's daughter was supposed to come to the hospital to have a conference with me and the patient and she did not show for this. Patient tells me her daughter is addicted to heroin. On 01/22/2019, patient was seen and examined: On examination she appeared in good health and spirits. Vital signs as documented. Skin warm and dry and without overt rashes. Neck without JVD. Lungs clear. Heart exam notable for regular rhythm, normal sounds and absence of murmurs, rubs or gallops. Abdomen unremarkable and without evidence of organomegaly, masses, or abdominal aortic enlargement. Extremities nonedematous. Neuro: Cranial nerves II through XII are grossly intact, no focal motor deficits were noted, sensation to light touch and pinprick is intact. Psych: Patient is alert and oriented x3, she does not appear anxious or depressed On 01/22/2019, patient was seen and examined and felt to be in stable condition for discharge home. She refused any outpatient alcohol detox services or any follow-up regarding her alcohol problem with or other organizations. Additional note: Patient was seen by PT and OT and she required a walker for home use which was prescribed at the time she was discharged. Patient Problems: Active and Suspected Problems Acute narcotic withdrawal (Acute) EtOH dependence (Acute) Alcohol withdrawal (Acute) Coffee ground emesis (Acute) - Physical Exam Vital Signs Temp Pulse Resp BP Pulse Ox 98.7 F 82 18 156/111 H 95 01/22/19 08:21 01/22/19 08:35 01/22/19 08:21 01/22/19 08:21 01/22/19 08:21 Oxygen Delivery Method Room Air Weight: 49.532 kg Body Mass Index (BMI) 20.6 Intake and Output for Last 24 Hours 01/20/19 01/21/19 01/22/19 23:59 23:59 23:59 Intake Total 4628 / 4628 1025 / 1025 500 / 500 Balance 4628 / 4628 1025 / 1025 500 / 500 Laboratory Tests Past 24 Hrs 01/21/19 01/22/19 19:20 04:16 Urine Color Cancelled Yellow Urine Clarity Cancelled Clear Urine pH Cancelled 8.0 Ur Specific [place] Cancelled 1.010 U Specif Grav (Refrac) Cancelled Urine Protein Cancelled 15 H Urine Glucose (UA) Cancelled Normal Urine Ketones Cancelled Negative Urine Occult Blood Cancelled 10 H Urine Nitrite Cancelled Negative Urine Bilirubin Cancelled Negative Urine Urobilinogen Cancelled 1 H Ur Leukocyte Esterase Cancelled 500 H Urine RBC Cancelled 0 SEEN Urine WBC Cancelled 5-10 SEEN Ur Squamous Epith Cells Cancelled 0-5 SEEN Ur Transition Epith Cell Cancelled Ur Renal Epithelial Cell Cancelled Calcium Oxalate Crystal Cancelled Uric Acid Crystals Cancelled Triple Phos Crystals Cancelled Other Crystals Cancelled Amorphous Sediment Cancelled Urine Bacteria Cancelled 0 SEEN Hyaline Casts Cancelled Fine Granular Casts Cancelled Coarse Granular Casts Cancelled Waxy Casts Cancelled RBC Casts Cancelled WBC Casts Cancelled Urine Mucus Cancelled 0 SEEN Urine Trichomonas Cancelled Urine Yeast Cancelled Discharge Activity: Return to Normal Activity Weight Bearing Status: Full weight bearing Home Medications: Medications to take at Discharge Amlodipine [Norvasc] 5 mg PO DAILY 11/15/17 Hydrochlorothiazide [Hctz] 25 mg PO DAILY 11/15/17 Lisinopril 20 mg PO DAILY 11/15/17 Pantoprazole Sodium [Protonix] 40 mg PO DAILY 11/15/17 Sucralfate [Carafate] 1 gm PO 4X/DAY #60 tab 01/22/19 Following Prescrptions Were Given to Patient: Sucralfate [Carafate] 1 gm PO 4X/DAY #60 tab Primary Care Physician: Cheryl Almanza NP-C [Primary Care Provider] - Please follow up with your Primary Care Physician in: in 10 days Disposition: Home Minutes spent on discharge:: 32 Patient Condition:: Stable Medical Necessity - Tobacco Use Smoking Status: Current every day smoker Tobacco Use: Cigarettes Meaningful Use Info Meaningful Use Diagnoses (Choose all that apply): None applicable Code Visit Inpatient E&M: 36326 Disch Hosp
--- NOTE | 2019-01-22 10:58 | CASEMGMT ---
Social Work SW met with pt in room and introduced self. Pt tearful stating she cannot remember phone numbers of her family and cannot get in touch with anyone to come pick her up. No information on demographic sheet. ED nurses note does have a number listed for an [facility]. SW provided this name to pt and she states this is daughters roommate. SW assisted pt in placing call to [facility] and pt was able to speak with dgt Martha. Pt gave phone to SW to speak with dgt. Dgt upset pt is not getting detox. SW explained options given multiple times and pt has refused. Pt to d/c today and Martha agreeable to come pick pt up. Will notify Martha when walker is delivered and she will come get pt at that time. SERGIO Fox
[2019-01-22 15:48] VITALS: BP 162/107; PULSE 79; RESP 18; TEMP 36.9; O2SAT 95
--- NOTE | 2019-01-22 19:01 | ED.RN ---
[employer] CALLED TO CHECK TO SEE IF PATIENT WAS DISCHARGED, PATIENT AT THIS TIME REFUSING TO PAY TAXI CAB. [employer] MADE AWARE PATIENT WAS DISCHARGED AND [facility] NOT PAYING FOR TAXI
== END 2019-01-22 17:53 | disposition home or self-care (01) | DRG 896 ==
LOC: ED 01-18 03:14 → MS2 01-18 05:19 → MS3 01-18 11:49
PROVIDERS: Surgery; Admitting Provider Hospitalist; Emergency Provider Emergency Medicine; Family Provider Nurse Practitioner Family; PCP Nurse Practitioner Family; Referring Provider Hospitalist; Visit Provider Internal Medicine
PROC: 0DJ08ZZ Inspection of Upper Intestinal Tract, Via Natural or Artificial Opening Endoscopic (ICD-10-PCS; CPT 43235; principal; 2019-01-20 09:30)
DX: F10.239 Alcohol dependence with withdrawal, unspecified (principal); E43 Unspecified severe protein-calorie malnutrition; K26.4 Chronic or unspecified duodenal ulcer with hemorrhage; G93.40 Encephalopathy, unspecified; E87.1 Hypo-osmolality and hyponatremia; D62 Acute posthemorrhagic anemia; I10 Essential (primary) hypertension; E78.5 Hyperlipidemia, unspecified; K21.0 Gastro-esophageal reflux disease with esophagitis; F17.210 Nicotine dependence, cigarettes, uncomplicated; Z68.20 Body mass index [BMI] 20.0-20.9, adult; E87.6 Hypokalemia; F32.9 Major depressive disorder, single episode, unspecified; K22.8 Other specified diseases of esophagus
CPT/HCPCS: 36415; 80048; 80053; 80307; 80320; 81001; 85014; 85018; 85025; 87086; 87088; 93005; 97162; 97166; 97530; 97535; 97802; 99284; J7030; A4216; G0480; J2405; J3490

== ENCOUNTER 2019-03-27 17:57 | Emergency (ER) | payer MEDICARE, SELFPAY ==
[2019-01-18 04:02] VITALS: BMI 20.6
[2019-03-27 17:58] VITALS: BP 186/140; PULSE 114; RESP 18; TEMP 36.2; BMI 18.6
[2019-03-27 18:08] VITALS: BP 183/127; PULSE 100; RESP 14; O2SAT 97
--- NOTE | 2019-03-27 18:15 | EKG12_ITS ---
Test Reason : ABD PAIN Blood Pressure : / mmHG Vent. Rate : 102 BPM Atrial Rate : 102 BPM P-R Int : 132 ms QRS Dur : 082 ms QT Int : 374 ms P-R-T Axes : 045 058 045 degrees QTc Int : 487 ms Sinus tachycardia Possible Left atrial enlargement Borderline ECG Confirmed by ELISSA PELLETIER ([id number]), market editor HEBERT GARZON ([id number]) on 04/02/2019 2:16:57 PM Referred By: COREY Confirmed By:ELISSA PELLETIER
--- NOTE | 2019-03-27 18:15 | CT_ITS ---
HISTORY:DECREASED VISION LEFT EYE DECREASED VISION LEFT EYE TECHNIQUE: Multiple axial images were obtained of the brain without intravenous contrast. A radiation dose optimization technique was used for this scan. IV Contrast dosage and agent: None. COMPARISON: None FINDINGS: # of images incl. paperwork: 227 INFARCT: None HEMORRHAGE: None PARENCHYMAL ATTENUATION:Normal for age MASS: None MIDLINE SHIFT: None BASAL CISTERNS: Patent VENTRICLES: Normal in size and configuration for age PARANASAL SINUSES:Clear MASTOID AIR CELLS: Clear ORBITS:No acute pathology CALVARIUM: No acute pathology OTHER TISSUES: No acute pathology ASPECTS Score for Acute Strokes: 10 CT/Brain/Head without Contrast IMPRESSION: No acute intracranial pathology. If symptoms persist consider mri for further evaluation if clinically indicated. Individualized dose optimization techniques were used for this CT. at 1912 Reported and signed by: Dolores Wolfe DO Electronically Signed: Dolores Wolfe DO at 19:11 EDT Tel , Service support ,
--- NOTE | 2019-03-27 18:18 | ED.DCSUM_ITS ---
History of Present Illness Chief Complaint: Abd Pain Informant: Patient, Family Onset: Month(s) Context: Gradual Onset Timing: Waxes and wanes Current Severity: Moderate Maximum Severity: Moderate Narrative: Patient presented with abdominal pain nausea and vomiting. She will vomit up blood. She also complains of having poor vision of her right eye for the last 2 months. She is able to see shapes and light. Patient was admitted in January for polysubstance abuse. Patient's blood pressure was under control with 3 medications. While in the hospital she had an upper GI bleed and was scoped by Dr. Watt. She was found to have duodenal ulcers. She was on Carafate and Protonix at discharge. Once she was discharged from the hospital she stopped taking any medications and started drinking again. This has been ongoing for the last 2 to 3 months. When asked what changed today to bring her to the hospital daughter states that she found out how her mom is been feeling and insisted she come to the hospital. Patient fears going to a half-way and therefore would not come in on her own. - Past Medical History (1) EtOH dependence Status: Acute (2) Benign essential HTN Status: Chronic (3) Depression Status: Chronic (4) Gastroesophageal reflux disease Status: Chronic (5) HLD (hyperlipidemia) Status: Chronic Past Medical History - Allergies and Home Meds Allergies/Adverse Reactions: Allergies No Known Allergies Allergy (Verified 01/17/19 23:15) Primary Care Physician: Cheryl Almanza NP-C [NON-STAFF] - Prior records reviewed: Yes Surgical History: - - Thyroid cyst surgery; rib removal Smoking Status: Current every day smoker Alcohol: Heavy Review of Systems General: Denies: Chills, Fever Eyes: Reports: Visual changes - right ENT: Denies: Bilateral ear pain Cardiovascular: Denies: Chest pain Respiratory: Denies: Dyspnea Gastrointestinal: Reports: Abdominal pain, Nausea, Vomiting Musculoskeletal: Denies: Extremity Pain Skin: Denies: Rash Neurological: Denies: Headache Endocrine: Denies: Polyuria, Polydipsia Hematologic: Denies: Easy bruising Allergy: Denies: Uticaria Physical Exam Vital Signs/Narrative: Vital Signs Temp Pulse Resp BP Pulse Ox 03/27/19 18:08 100 14 183/127 H 97 03/27/19 17:58 97.1 F L 114 H 18 186/140 H Inital Vital Signs reviewed: Yes General: Cachectic Head: Normocephalic Eyes: Perrl, - - Haziness noted over the right pupil. ENT: Moist mucous membranes Cardiovascular: Tachycardia Respiratory: No distress, CTA bilaterally Abdomen: Soft, Tender - Mild diffuse tenderness to palpation.. Negative for: Guarding, Rebound tenderness Extremities: Nontender, No edema Skin: Normal color Neurological: Alert, Oriented x3 Psychological: - - Patient has a flat affect. She looks to her daughter to answer questions for her. Diagnostic/Tx/Re-eval Impressions Brain CT 03/27/19 18:15 IMPRESSION: No acute intracranial pathology. If symptoms persist consider mri for further evaluation if clinically indicated. Individualized dose optimization techniques were used for this CT. at 1912 Reported and signed by: Dolores Wolfe DO Electronically Signed: Dolores Wolfe DO at 19:11 EDT Tel , Service support , 03/27/19 18:15 Brain/Head without Contrast [CT] Stat Laboratory Results 03/27/19 03/27/19 03/27/19 18:25 18:25 18:25 WBC 8.3 RBC 4.62 Hgb 13.9 Hct 40.6 MCV 87.9 MCH 30.1 MCHC 34.2 RDW Std Deviation 47.9 H RDW Coeff of Richard 15.3 H Plt Count 201 MPV 9.4 Immature Gran % (Auto) 0.200 Neut % (Auto) 64.7 Lymph % (Auto) 25.5 Fleming % (Auto) 7.7 Eos % (Auto) 0.7 Baso % (Auto) 1.2 H Absolute Neuts (auto) 5.4 Absolute Lymphs (auto) 2.12 Nucleated RBC % 0 PT 12.1 INR 0.9 APTT 38.8 H Sodium 137 Potassium 3.4 L Chloride 103 Carbon Dioxide 28.0 Anion Gap 6 BUN 4 L Creatinine 0.59 Estim Creat Clear Calc 79.05 Est GFR (MDRD) Af Amer 135 Est GFR (MDRD) Non-Af 111 BUN/Creatinine Ratio 6.8 L Glucose 87 Calcium 8.3 L Total Bilirubin 0.30 Direct Bilirubin 0.11 AST 12 L ALT 12 L Alkaline Phosphatase 130 H Total Protein 7.2 Albumin 2.8 L Globulin 4.4 H Lipase 335 Ethyl Alcohol 03/27/19 18:25 WBC RBC Hgb Hct MCV MCH MCHC RDW Std Deviation RDW Coeff of Richard Plt Count MPV Immature Gran % (Auto) Neut % (Auto) Lymph % (Auto) Fleming % (Auto) Eos % (Auto) Baso % (Auto) Absolute Neuts (auto) Absolute Lymphs (auto) Nucleated RBC % PT INR APTT Sodium Potassium Chloride Carbon Dioxide Anion Gap BUN Creatinine Estim Creat Clear Calc Est GFR (MDRD) Af Amer Est GFR (MDRD) Non-Af BUN/Creatinine Ratio Glucose Calcium Total Bilirubin Direct Bilirubin AST ALT Alkaline Phosphatase Total Protein Albumin Globulin Lipase Ethyl Alcohol 364.0 H* - EKG Initial EKG Interpretation: Sinus Tachycardia - Sinus tach at 102 with no acute ischemia. - Medical Decision Making Patient was given IV labetalol and Protonix. Blood pressure came down transiently is now starting to climb again. On repeat evaluation she is alert and hungry, requesting something to eat. Test results were discussed with patient and family. Surprisingly her blood work looks pretty good considering she has not been taking her medications and is reportedly vomited blood. She will be given new prescriptions for the blood pressure medication and gastritis medication that she had been written for at the time of her hospital discharge. She was referred to Dr. Hope, on-call for ophthalmology. ED Disposition - Plan for ED Patient: Disposition: Home or Assisted Living Diagnosis: Gastritis, Alcohol abuse, Hypertension, Noncompliance with medication regimen Instructions: GASTRITIS (Adult), HYPERTENSION, Established Prescriptions: Sucralfate [Carafate] 1 gm PO 4X/DAY #30 days Hydrochlorothiazide [Hctz] 25 mg PO DAILY #30 tablet Lisinopril 20 mg PO DAILY #30 tablet Amlodipine [Norvasc] 5 mg PO DAILY #30 tablet Pantoprazole Sodium [Protonix] 40 mg PO DAILY #30 tablet Referrals: Cheryl Almanza NP-C [NON-STAFF] - As soon as possible Anton Hope MD [STAFF PHYSICIAN] - As soon as possible
[2019-03-27] MEDS: 0.9% Normal Saline 1,000 ML 150 ML IV (18:32)
[2019-03-27 18:33] VITALS: BP 200/143; PULSE 101; RESP 14; O2SAT 97
[2019-03-27 18:37] LABS: Absolute Lymphocyte Count 2.12 X10^3/uL (0.83-4.51); Absolute Neutrophil Count 5.4 X10^3/uL (2.0-7.7); Basophil% 1.2 % (0-1); Eosinophil# 0.06 X10^3/uL; Eosinophils% 0.7 % (0-5); Hematocrit 40.6 % (37-47); Hemoglobin 13.9 g/dL (12.0-15.0); Lymphocyte # 2.12 X10^3/ul (4.0); Lymphocyte % 25.5 % (19-41); Mean Corp Hgb Conc 34.2 g/dL (32-36); Mean Corpuscular Hgb 30.1 pg (27.0-32.0); Mean Corpuscular Volume 87.9 fL (81-99); Mean Platelet Vol. 9.4 fl (6.2-12.0); Monocyte# 0.64 X10^3/uL; Monocyte% 7.7 % (0-10); NRBC Flagged by Analyzer 0 % (0-5); Neutrophil # 5.36 X10^3/uL (2.7-7.7); Neutrophil % 64.7 % (47-70); Platelet Count 201 K/mm3 (150-450); RBC Distribution Width CV 15.3 % (11.6-14.6); RBC Distribution Width SD 47.9 fl (35.1-43.9); Red Blood Count 4.62 M/mm3 (4.2-5.4); White Blood Count 8.3 K/mm3 (4.4-11.0)
[2019-03-27 18:46] LABS: International Normalized Ratio 0.9; Prothrombin Time (Protime)PT. 12.1 SECONDS (11.7-14.9)
[2019-03-27 18:47] LABS: Partial Thromboplast Time 38.8 Seconds (24.1-36.2)
[2019-03-27 18:53] LABS: AST(SGOT) 12 U/L (15-37); Alanine Aminotransfer ALT/SGPT 12 U/L (13-56); Albumin, Serum 2.8 g/dL (3.2-5.0); Alkaline Phosphatase 130 U/L (45-117); Anion Gap 6 (5-15); BUN 4 mg/dL (7-18); BUN/Creat Ratio 6.8 RATIO (10-20); Bilirubin, Direct 0.11 mg/dL (0.00-0.30); Calcium,Total 8.3 mg/dL (8.5-10.1); Chloride 103 mmol/L (98-107); Creatinine, Serum 0.59 mg/dL (0.55-1.02); EST Glomerular Filtration Rate 111 mL/min (>60); Est Glom Filt Rate - Afr Amer 135 mL/min (>60); Estimated Creatinine Clearance 79.05 ml/min; Globulin 4.4 g/dL (2.2-4.2); Glucose 87 mg/dL (74-106); Lipase 335 U/L (73-393); Potassium 3.4 mmol/L (3.5-5.1); Protein, Total 7.2 g/dL (6.4-8.2); Sodium Level 137 mmol/L (136-145)
[2019-03-27 18:59] VITALS: BP 177/124; PULSE 85; RESP 16; O2SAT 95
--- NOTE | 2019-03-27 19:15 | ED.RN ---
lab called with critical lab results. etoh level 364. Dr. Finley made aware. no new orders at this time
[2019-03-27 20:08] VITALS: BP 184/141; PULSE 97; RESP 16; O2SAT 98
[2019-03-27] MEDS: hydroCHLOROthiazide 12.5mg 12.5 MG PO (20:33)
[2019-03-27] MEDS: Lisinopril 20 MG Tablet PO (20:33)
[2019-03-27] MEDS: amLODIPine 5 MG Tablet PO (20:33)
[2019-03-27 20:35] VITALS: BP 190/136; PULSE 93; RESP 18; O2SAT 98
== END 2019-03-27 20:35 | disposition home or self-care (01) ==
PROVIDERS: Emergency Provider Emergency Medicine
DX: K29.70 Gastritis, unspecified, without bleeding (principal); F10.229 Alcohol dependence with intoxication, unspecified; R00.0 Tachycardia, unspecified; I10 Essential (primary) hypertension; Z91.14 Patient's other noncompliance with medication regimen; E78.5 Hyperlipidemia, unspecified; F32.9 Major depressive disorder, single episode, unspecified; K21.9 Gastro-esophageal reflux disease without esophagitis; F17.200 Nicotine dependence, unspecified, uncomplicated; Z79.899 Other long term (current) drug therapy; Z87.11 Personal history of peptic ulcer disease
CPT/HCPCS: 70450; 80048; 80076; 80320; 83690; 85025; 85610; 85730; 93005; 96361; 96365; 96375; 99285; J7030; A4216; G0480

== ENCOUNTER 2019-04-05 11:27 | Emergency (ER) | payer MEDICARE, SELFPAY ==
[2019-04-05 11:27] VITALS: BP 154/95; PULSE 96; RESP 18; TEMP 36.6; O2SAT 98; BMI 21.9
--- NOTE | 2019-04-05 12:33 | RAD_ITS ---
STUDY: X-RAY - RIGHT WRIST REASON FOR EXAM: Female, 58 years old. Wrist pain and swelling TECHNIQUE: 3 view(s) of the wrist were obtained. COMPARISON: None. FINDINGS: Normal visualized distal radius and ulna. Normal radiocarpal articulation. Normal distal radioulnar articulation. Normal carpal bones. Normal carpal articulations. Normal carpometacarpal articulation of the thumb. Normal second through fifth carpometacarpal articulations. Normal visualized metacarpal bones. The soft tissue structures are unremarkable. RAD/Wrist min 3 Views IMPRESSION: Normal x-ray examination of the wrist. Electronically Signed: Gerber Peraza MD at 12:47 EDT Tel , Service support ,
[2019-04-05] MEDS: HYDROcodone Bitartrate/Apap 5/325 Tablet PO (12:39)
--- NOTE | 2019-04-05 12:54 | ED.DCSUM_ITS ---
History of Present Illness Chief Complaint: Upper Extremity Injury Informant: Patient Onset: Yesterday Current Severity: Mild Narrative: Patient presents complaining of right radial sided wrist discomfort that occurred after she had been pulling weeds yesterday, she suffered no direct trauma she has history of arthritis she has a history of gout she has no numbness weakness or paresthesias she has increasing pain if she tries to move her thumb or move her wrist she still there is really no pain no other complaints when she was not having any symptoms until she performed that activity above Past Medical History - Allergies and Home Meds Allergies/Adverse Reactions: Allergies No Known Allergies Allergy (Verified 04/05/19 11:30) Primary Care Physician: Care Physician,No Primary [Primary Care Provider] - Past Medical History: - Surgical History: - - Thyroid cyst surgery; rib removal Smoking Status: Current every day smoker Review of Systems ROS: - Unremarkable except as above arthritis hypertension General: Denies: Chills, Fever, Sweats Eyes: Denies: Visual changes - bilaterally, Diplopia ENT: Denies: Rhinorrhea, Sore throat Cardiovascular: Denies: Chest pain, Palpitations Respiratory: Denies: Dyspnea, Cough, Dyspnea on exertion Gastrointestinal: Denies: Abdominal pain, Nausea, Vomiting, Diarrhea, Melena, Hematochezia Genitourinary: Denies: Dysuria, Hematuria, Frequency Musculoskeletal: Reports: Extremity Pain. Denies: Back pain Skin: Denies: Rash, Wounds Neurological: Denies: Headache, Weakness, Numbness Physical Exam Vital Signs/Narrative: Vital Signs Temp Pulse Resp BP Pulse Ox 04/05/19 11:27 97.8 F 96 18 154/95 H 98 General: Well nourished, Well developed, No Acute Distress Head: Normocephalic, Atraumatic Eyes: Perrl, EOMI ENT: Moist mucous membranes, No rhinorrhea Neck: Supple, Nontender Cardiovascular: Regular rate, Regular rhythm, No murmurs Respiratory: No distress, CTA bilaterally, Chest nontender Abdomen: Soft, Nontender, Nondistended, Normal bowel sounds Back: Nontender, Normal Inspection Extremities: Nontender, No edema, - - He has discomfort when you basically track from the snuffbox more proximally across the lateral ulnar region, she has discomfort when she tries to move the thumb her hand function is normal wrist function is normal there is no warmth no signs of infection no signs of direct trauma elbow and upper extremity exam are otherwise unremarkable neurovascular function normal Skin: Normal color, No rash Neurological: Alert, Oriented x3, Cranial nerves II-XII grossly intact, Normal Strength, Normal Sensation Psychological: Normal affect, Normal Mood Diagnostic/Tx/Re-eval - Medical Decision Making X-rays obtained 3 view wrist that shows nothing acute no fracture dislocation, I explained to the patient the concept this is likely a ligamentous type injury given her mechanism physical findings etc. she agrees, she has stomach upset when she takes multiple medications possibly related to acid disease she will be started on Velcro wrist splint ice Tylenol for pain [place] No. 4 tablets as a rescue medicine she will follow-up with her outpatient providers and she is referred to orthopedics Home stable Final impression right wrist injury ED Disposition - Plan for ED Patient: Diagnosis: Right wrist injury Instructions: Wrist Sprain Prescriptions: Hydrocodone Bitart/Apap 5-325 [[place] 5MG-325MG] 1 tab PO Q4H PRN PRN 2 Days #7 tab PRN Reason: Pain Prescription Printed Referrals: Care Physician,No Primary [Primary Care Provider] -
--- NOTE | 2019-04-05 12:58 | DCINST.ED_ITS ---
ED Disposition - Plan for ED Patient: Diagnosis: Right wrist injury Instructions: Wrist Sprain Prescriptions: Hydrocodone Bitart/Apap 5-325 [[place] 5MG-325MG] 1 tab PO Q4H PRN PRN 2 Days #7 tab PRN Reason: Pain Prescription Printed Referrals: Care Physician,No Primary [Primary Care Provider] - Luis Manuel Crabtree DO [STAFF PHYSICIAN] -
== END 2019-04-05 13:40 | disposition home or self-care (01) ==
LOC: ED 12:08
PROVIDERS: Emergency Provider Emergency Medicine
DX: S69.91XA Unspecified injury of right wrist, hand and finger(s), initial encounter (principal); X58.XXXA Exposure to other specified factors, initial encounter; Y93.H2 Activity, gardening and landscaping; Y92.9 Unspecified place or not applicable; Y99.9 Unspecified external cause status; I10 Essential (primary) hypertension; M19.90 Unspecified osteoarthritis, unspecified site; F17.200 Nicotine dependence, unspecified, uncomplicated; Z79.899 Other long term (current) drug therapy
CPT/HCPCS: 73110; 99283

== ENCOUNTER 2019-06-27 15:39 | Inpatient (IN) | payer MEDICARE, SELFPAY ==
[2019-06-27] VITALS (7 sets, daily range): BP systolic 123–175; BP diastolic 96–132; PULSE 82–125; RESP 14–18; TEMP 36.3–36.4; O2SAT 98–100; BMI 15.0; BMI 15.7; BMI 15.8
[2019-06-27 16:16] LABS: Mucous, Urine 0 SEEN /hpf (<or=2+); Red Blood Cells-Urine 0 SEEN /hpf (0-5)
[2019-06-27 16:19] LABS: Color, Urine Yellow (Yellow); Glucose, Dipstick Normal (Normal); Ketone-Dipstick 5 mg/dl (Negative); Leukocyte Esterase-Dipstick 500 /ul (Negative); Nitrite-Dipstick Negative (Negative); Occult Blood-Urine 25 /ul (Negative); Protein-Dipstick 30 mg/dl (Negative); Urine Clarity Cloudy (Clear); Urine Urobilinogen 1 mg/dl (Normal)
--- NOTE | 2019-06-27 16:19 | EKG12_ITS ---
Test Reason : NAUSEA/VOMITING Blood Pressure : / mmHG Vent. Rate : 110 BPM Atrial Rate : 110 BPM P-R Int : 140 ms QRS Dur : 162 ms QT Int : 386 ms P-R-T Axes : 068 080 065 degrees QTc Int : 522 ms Sinus tachycardia Biatrial enlargement Non-specific intra-ventricular conduction block Abnormal ECG Confirmed by SIMONE SAHU, SEEMA ([id number]), health editor HEBERT GARZON ([id number]) on 06/29/2019 12:38:26 PM Referred By: Oma Costa Confirmed By:JONAH NICHOLS MD
--- NOTE | 2019-06-27 16:19 | CT_ITS ---
STUDY: CT BRAIN WITHOUT CONTRAST REASON FOR EXAM: Female, 59 years old. Fall. Headache. RADIATION DOSAGE (If Supplied By Facility): DLP = ( 745.49 ) mGycm TECHNIQUE: Transaxial CT imaging of the brain was performed without administration of intravenous contrast material. Individualized dose optimization techniques were used for this CT. COMPARISON: CT head March 27, 2019 FINDINGS: There is no acute bleed or infarct. There are normal white matter tracts. The ventricles are normal in configuration. There is no hydrocephalus. The visualized paranasal sinuses are clear. The mastoid air cells are well aerated. There is no skull fracture. CT/Brain/Head without Contrast IMPRESSION: No acute intracranial abnormality. Electronically Signed: Luis Salazar, at 17:45 EST Tel , Service support ,
--- NOTE | 2019-06-27 16:20 | RAD_ITS ---
STUDY: X-RAY CHEST REASON FOR EXAM: Female, 59 years old. Nausea and vomiting TECHNIQUE: PA and lateral views of the chest. COMPARISON: None. FINDINGS: There is hyperinflation of the lungs consistent with chronic obstructive lung disease (COPD). There is no demonstrated pleural abnormality. Normal size heart. Normal mediastinum and godfrey. Normal visualized pulmonary arteries. Normal visualized aortic arch and descending thoracic aorta. There are diffuse degenerative changes of the visualized thoracic spine. Normal visualized ribs, clavicles, and shoulders. There is no demonstrated abnormality of the visualized soft tissue structures of the upper abdomen. RAD/Chest 1 View (Portable) IMPRESSION: COPD Electronically Signed: Eusebio Saldana MD at 16:43 EST , Service support ,
[2019-06-27 16:22] LABS: Urine Bilirubin Dipstick 1 mg/dL (Negative)
[2019-06-27 16:27] LABS: Bacteria RARE /hpf (None Seen); Squamous Epithelial Cells - UA 10-25 SEEN /hpf (5-10); White Blood Cells 10-25 SEEN /hpf (0-5)
[2019-06-27 16:28] LABS: Hyaline Cast 0-5 SEEN /lpf (0-5)
[2019-06-27 16:39] LABS: Absolute Lymphocyte Count 2.74 X10^3/uL (0.83-4.51); Absolute Neutrophil Count 7.7 X10^3/uL (2.0-7.7); Basophil# 0.05 X10^3/uL; Basophil% 0.4 % (0-1); Hematocrit 53.7 % (37-47); Lymphocyte # 2.74 X10^3/ul (4.0); Mean Corp Hgb Conc 35.6 g/dL (32-36); Mean Corpuscular Hgb 31.2 pg (27.0-32.0); Mean Corpuscular Volume 87.6 fL (81-99); Mean Platelet Vol. 10.7 fl (6.2-12.0); Monocyte# 1.33 X10^3/uL; Monocyte% 11.2 % (0-10); NRBC Flagged by Analyzer 0 % (0-5); Neutrophil # 7.73 X10^3/uL (2.7-7.7); Neutrophil % 64.9 % (47-70); Platelet Count 306 K/mm3 (150-450); RBC Distribution Width CV 15.6 % (11.6-14.6); RBC Distribution Width SD 46.9 fl (35.1-43.9); Red Blood Count 6.13 M/mm3 (4.2-5.4); White Blood Count 11.9 K/mm3 (4.4-11.0)
[2019-06-27] MEDS: 0.9% Normal Saline 1,000 ML 1000 ML IV (16:43)
[2019-06-27 16:51] LABS: Hemoglobin 19.1 g/dL (12.0-15.0)
--- NOTE | 2019-06-27 18:43 | ED.RN ---
pot 1.[address] called from [address] lab[address] dr paulson aware
[2019-06-27 18:44] LABS: AST(SGOT) 20 U/L (15-37); Alanine Aminotransfer ALT/SGPT 15 U/L (13-56); Albumin, Serum 2.9 g/dL (3.2-5.0); Alkaline Phosphatase 83 U/L (45-117); Anion Gap 13 (5-15); BUN 35 mg/dL (7-18); Bilirubin, Direct 0.48 mg/dL (0.00-0.30); Calcium,Total 8.5 mg/dL (8.5-10.1); Chloride 97 mmol/L (98-107); Creatinine, Serum 2.34 mg/dL (0.55-1.02); EST Glomerular Filtration Rate 23 mL/min (>60); Est Glom Filt Rate - Afr Amer 28 mL/min (>60); Estimated Creatinine Clearance 15.93 ml/min; Globulin 3.5 g/dL (2.2-4.2); Glucose 104 mg/dL (74-106); Potassium 1.8 mmol/L (3.5-5.1); Protein, Total 6.4 g/dL (6.4-8.2); Sodium Level 136 mmol/L (136-145)
--- NOTE | 2019-06-27 18:44 | ED.RN ---
lactic acid 2.[address] from [address] lab[address] dr paulson aware
[2019-06-27 18:46] LABS: Lactic Acid 2.2 mmol/L (0.4-2.0)
--- NOTE | 2019-06-27 19:03 | ED.VISSUMM ---
- ER Visit Summary Date of Service: 06/27/19 Chief Complaint: [Difficulty swallowing and vomiting] History of Present Illness: The patient is a 59 F [presents to the emergency department with difficulty swallowing and vomiting x2 weeks. She denies any diarrhea. She denies any significant abdominal pain. Patient has been losing weight she is not sure exactly how much she is lost but she only weighs about 80 pounds now. Patient states that she used to have her esophagus stretched and her last time was about 6 years ago. Patient also fell last night while taking a shower and complains of head pain and left rib pain. Patient has had history of prior stroke and has history of hypertension. No prior surgical history.] Physical Examination: [HEENT-PERRLA, EOMI. Cranial nerves II through XII grossly intact. TMs clear. Mucous membranes moist. No adenopathy. Patient cachectic. Patient has memory slightly dry. Cardiovascular-regular rate and rhythm without murmur or ectopy Lungs-clear to auscultation, chest wall stable without crepitus or subcu emphysema Abdomen-normoactive bowel sounds, soft, nontender, no rebound or rigidity, no peritoneal signs. Extremities-intact ?4, normal range of motion, normal pulses, atraumatic] Test Results: [EKG obtained arrival shows sinus rhythm with a ventricular rate of 110 bpm with nonspecific intraventricular conduction delay. CBC with differential at 11.9, hemoglobin 19, hematocrit 54, placed 3 of 6. Chemistries showed a sodium 136, potassium 1.8, chloride 97, CO2 26, glucose 104, BUN 35 and creatinine 2.34. Urinalysis was a contaminated specimen she had 10-25 epis and 10-25 WBCs 500 leukocyte esterase. Troponin slightly elevated 0.082. Lactate was elevated 2.2. CT scan of the brain without contrast showed nothing acute. Chest x-ray showed COPD otherwise nothing acute.] Emergency Department Course and Treatment: [She was given a liter normal same fluid bolus. Patient was ordered 40 mEq of potassium chloride IV. Case was discussed with general surgeon on-call for the [facility] as patient tells me she is scheduled to see a different clinic assembler [facility] in a couple of days but but this will be her first appointment. Patient would like to stay within the [facility] system. I discussed case with Dr. Gerber Edmond who would be happy to see the patient in consultation.] She was able to drink water in the department with no vomiting. Treatment Plan: [Admit] Disposition: [Admit] Impression: [Acute kidney injury Hypokalemia Dysphasia] This note was generated with [employer] dictation software. It may contain incorrect words, spelling, and punctuation that were not noted in review of the chart prior to signing ED Disposition - Plan for ED Patient: Referrals: Care Physician,No Primary [Primary Care Provider] -
--- NOTE | 2019-06-27 19:21 | PCM.HP.STD ---
Problem List (1) Dysphagia Status: Acute Qualifiers: Dysphagia type: unspecified Qualified Code(s): R13.10 - Dysphagia, unspecified (2) Esophageal stricture Status: Suspected (3) Hypokalemia Status: Acute (4) DEANDRE (acute kidney injury) Status: Acute (5) Lactic acid acidosis Status: Acute (6) Cardiac enzymes elevated Status: Acute (7) History of CVA (cerebrovascular accident) Status: Chronic (8) HLD (hyperlipidemia) Status: Chronic Qualifiers: Hyperlipidemia type: unspecified Qualified Code(s): E78.5 - Hyperlipidemia, unspecified (9) Gastroesophageal reflux disease Status: Chronic Qualifiers: Esophagitis presence: esophagitis presence not specified Qualified Code(s): K21.9 - Gastro-esophageal reflux disease without esophagitis (10) Depression Status: Chronic Qualifiers: Depression Type: unspecified Qualified Code(s): F32.9 - Major depressive disorder, single episode, unspecified (11) Benign essential HTN Status: Chronic History of Present Illness Date of Admission: 06/27/19 Chief Complaint: N/V, poor intake The patient is a 59 y/o F w/ PMHx: 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 Duodenal ulcers who presents to the [facility] ED on 06/27/19 with history of aggressively worsening dysphagia over the last several years more pronounced over the last 1 to 2 weeks with intractable nausea and emesis with any attempted oral intake with sharp abdominal stabbing discomfort particularly with onset of emesis with inability to maintain appropriate oral intake with fatigue, malaise and near syncopal events including the day prior to current presentation while attempting to get out of the shower with no loss of consciousness associated with recent 1 to 2-week history of rhinorrhea, congestion, postnasal drip as well as mildly productive cough of green sputum. In the ED included T 97.4, heart rate initially 125 with repeat 99, BP 123/96, respiratory rate 17, 98% on room air, positive orthostatic vital signs, CBC with WC 11.9, hemoglobin 19.1, platelet 3 of 6 with increased monocytes but no notable left shift, CMP with potassium 1.8, chloride 97, BUN/creatinine 35/2.34, lactic acid 2.2, total bilirubin 1.40, direct bilirubin 0.48, troponin 0.082, urinalysis with evidence of dehydration but no obvious UTI, chest x-ray with chronic COPD changes, CT brain with no acute intracranial findings. In the ED patient ordered normal saline, Phenergan as well as potassium 40 mg and IV supplementation. Past Medical History Past Medical History (Chronic Problems): Chronic Problems History of CVA (cerebrovascular accident) (Chronic) HLD (hyperlipidemia) (Chronic) Gastroesophageal reflux disease (Chronic) Depression (Chronic) Benign essential HTN (Chronic) Allergies No Known Allergies Allergy (Verified 06/27/19 15:40) Home Medications: Ambulatory Orders Medication Instructions Recorded NK 06/27/19 Surgical History: - - Thyroid cyst surgery, rib removal, tonsillectomy, prior esophageal dilations. Psychiatric History: Anxiety, Depression [employer] History: No pertinent [employer] history Lives: Roommate Smoking Status: Current every day smoker - Currently smoking proximal me 3 to 4 cigarettes/day. Tobacco Use: Cigarettes Alcohol: Occasional - Patient notes 1, 12 pack of beer will now last her approximately 3 weeks, previous heavy alcohol abuse reported in history, denies this currently. Drugs: None - *Family History Maternal Family History: Family History (Last Updated 01/18/19 @ 04:11 by Musa Navarrete MD) Brother Alcoholism Father CVA (cerebral vascular accident) History Items: - - Patient states she does not know any of her maternal family history as her mother when she was 5 years old but she denies any history of heart disease, diabetes, cancer, unclear etiology for . Paternal Family History: Family History (Last Updated 01/18/19 @ 04:11 by Musa Navarrete MD) Brother Alcoholism Father CVA (cerebral vascular accident) History Items: Stroke Review of Systems Constitutional: Reports: Anorexia, Malaise, Weakness. Denies: Chills, Fever, Weight Change HEENT: Reports: Nasal Congestion, Post Nasal Drip, Sinus Congestion, Sore Throat. Denies: Head Aches, Sinus Drainage Cardiovascular: Reports: Light Headedness, - - Near syncopal event.. Denies: Chest Pain, Chest Pressure, Chest Tightness, Orthopnea, Palpitations, Syncope Respiratory: Reports: Cough, Sputum production. Denies: Shortness of breath at rest, Shortness of breath upon exertion, Wheezing Gastrointestinal: Reports: Abdominal Pain, Nausea, Vomiting Genitourinary: Denies: Dysuria Musculoskeletal: Reports: Back Pain, Joint Pain. Denies: Joint Tenderness Skin: Denies: Rash, Wounds Neurological: Reports: Focal weakness - Chronic residual right-sided mild hemiplegia status post stroke.. Denies: Numbness, Tingling Psychiatric: Reports: Anxiety, Depression. Denies: Homicidal Ideations, Suicidal Ideations Hematologic/ Lymphatic: Reports: Easy Bruising, Easy Bleeding VTE Information - Inpt Only VTE Present on Admission: No VTE Mechan Device Prophylaxis: SCD's VTE Pharm Prophylaxis ordered?: Yes Patient Problems: Active and Suspected Problems Dysphagia (Acute) Esophageal stricture (Suspected) Hypokalemia (Acute) DEANDRE (acute kidney injury) (Acute) Lactic acid acidosis (Acute) Cardiac enzymes elevated (Acute) Subjective: Seated upright in ED bed, fatigued, ill-appearing Objective: Physical Examination: General: awake, alert, oriented x 3 and cooperative, seated upright in ED bed, fatigued and ill-appearing. Skin: normal color, turgor, no icterus, cyanosis. HEENT: AT/NC, EOMI, PERRLA, dry MM, no carotid bruits or JVD noted. Lungs: Diminished breath sounds, greater bilateral bases, moderate effort, no rales, ronchi or wheezing. Heart: Mildly tachycardic with regular rhythm; no gallop, rub audible, SM. Abdomen: soft, cachectic habitus, mild generalized discomfort with palpation, no specific rebound, nondistended, mildly hyperactive bowel sounds, difficult to assess HSM secondary to discomfort but no obvious HSM. Extremities: no cyanosis, clubbing, or edema. Neurological: patient awake, alert, oriented x 3; cognitive function intact; pupils equally reactive to light and accomodation; cranial nerves II-XII grossly normal, moving all 4 extremities with chronic mild right-sided hemiplegia status post prior CVA, strength accordingly severely global decrease secondary to acute presentation Psychiatric: affect appears flat, fatigued, no acute evidence of depressive or anxiety feelings. - Physical Exam Vitals/I&O's: Vital Signs Temp Pulse Resp BP Pulse Ox 97.4 F L 96 14 162/126 H 100 06/27/19 15:40 06/27/19 18:01 06/27/19 18:01 06/27/19 18:01 06/27/19 18:01 Oxygen Delivery Method Room Air Weight: 84 lb 14.047 oz Body Mass Index (BMI) 15.0 Intake and Output for Last 24 Hours 06/25/19 06/26/19 06/27/19 23:59 23:59 23:59 Intake Total 1000 / 1000 Balance 1000 / 1000 Laboratory Results 06/27/19 16:10: Urine Color Yellow, Urine Clarity Cloudy, Urine pH 6.0, Ur Specific [place] 1.020, Urine Protein 30 H, Urine Glucose (UA) Normal, Urine Ketones 5 H, Urine Occult Blood 25 H, Urine Nitrite Negative, Urine Bilirubin 1 H, Urine Urobilinogen 1 H, Ur Leukocyte Esterase 500 H, Urine RBC 0 SEEN, Urine WBC 10-25 SEEN, Ur Squamous Epith Cells 10-25 SEEN, Urine Bacteria RARE, Hyaline Casts 0-5 SEEN, Urine Mucus 0 SEEN 06/27/19 16:25: WBC 11.9 H, RBC 6.13 H, Hgb 19.1 H*, Hct 53.7 H, MCV 87.6, MCH 31.2, MCHC 35.6, RDW Std Deviation 46.9 H, RDW Coeff of Richard 15.6 H, Plt Count 306, MPV 10.7, Immature Gran % (Auto) 0.500, Neut % (Auto) 64.9, Lymph % (Auto) 23.0, [place] % (Auto) 11.2 H, Eos % (Auto) 0.0, Baso % (Auto) 0.4, Absolute Neuts (auto) 7.7, Absolute Lymphs (auto) 2.74, Nucleated RBC % 0, Diff Path Review December06/27/19 16:25: Sodium Cancelled, Potassium Cancelled, Chloride Cancelled, Carbon Dioxide Cancelled, Anion Gap Cancelled, BUN Cancelled, Creatinine Cancelled, Estim Creat Clear Calc Cancelled, Est GFR (MDRD) Af Amer Cancelled, Est GFR (MDRD) Non-Af Cancelled, BUN/Creatinine Ratio Cancelled, Glucose Cancelled, Calcium Cancelled, Total Bilirubin Cancelled, Direct Bilirubin Cancelled, AST Cancelled, ALT Cancelled, Alkaline Phosphatase Cancelled, Troponin I Cancelled, Total Protein Cancelled, Albumin Cancelled, Globulin Cancelled 06/27/19 16:25: Lactic Acid Cancelled 06/27/19 18:05: Lactic Acid 2.2 H 06/27/19 18:05: Sodium 136, Potassium 1.8 L*, Chloride 97 L, Carbon Dioxide 26.0, Anion Gap 13, BUN 35 H, Creatinine 2.34 H, Estim Creat Clear Calc 15.93, Est GFR (MDRD) Af Amer 28 L, Est GFR (MDRD) Non-Af 23 L, BUN/Creatinine Ratio 15.0, Glucose 104, Calcium 8.5, Total Bilirubin 1.40 H, Direct Bilirubin 0.48 H, AST 20, ALT 15, Alkaline Phosphatase 83, Troponin I 0.082 H, Total Protein 6.4, Albumin 2.9 L, Globulin 3.5 Current Medications Potassium Chloride () 10 meq in 100 mls @ 100 mls/hr IV BOLUS Q1H LUIS Stop: 06/27/19 22:59 Assessment/Plan All Active Problems Acute narcotic withdrawal (Acute) EtOH dependence (Acute) Alcohol withdrawal (Acute) Coffee ground emesis (Acute) Dysphagia (Acute) Hypokalemia (Acute) DEANDRE (acute kidney injury) (Acute) Lactic acid acidosis (Acute) Cardiac enzymes elevated (Acute) The patient is a 59 y/o F w/ PMHx: 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 Duodenal ulcers who presents to the [facility] ED on 06/27/19 with history of aggressively worsening dysphagia, worse x 1 to 2 weeks with intractable nausea and emesis with sharp abdominal stabbing discomfort w/ fatigue, malaise and near syncopal event w/ concurrent recent 1 to 2-week history of rhinorrhea, congestion, postnasal drip. 1. Suspected viral syndrome with intractable nausea and emesis: Patient with concurrent rhinorrhea, congestion, postnasal drip, suspect viral syndrome as possible etiology for nausea and emesis as well as #2 contribution, will maintain on telemetry given severe elect light disturbances, continue aggressive hydration as well as electrolyte supplementation, respiratory viral panel requested, continue conservative care with PRN albuterol. 2. Worsening dysphagia with history of esophageal strictures, complicating #1: Suspect likely several months 2-year history of worsening dysphagia associate with esophageal strictures, Dr. Edmond, general surgeon consulted and aware, plan n.p.o. after midnight with evaluation possibly EGD in a.m., maintain on IV PPI in interim, speech therapy also consulted as well as nutrition given severe malnutrition. 3. Hypokalemia: Admission potassium 1.8, 40 mEq IV ordered per the ED, following this we will continue aggressive IV fluid supplementation with additional milliequivalent in this, repeat BMP this evening and in a.m. with continued supplementation, magnesium requested and pending. 4. Acute kidney injury: Secondary to GI losses. Admission BUN/Cr 35/2.34, prior baseline creatinine noted to be 0.5-0.8. Will hydrate, hold nephrotoxic medications and repeat chemistry in AM. If no improvement would plan FeNa ultrasound assessment. 5. Lactic acidosis: Lactic acid 2.2, suspected secondary to severe dehydration, continue aggressive resuscitation, trend lactic acid per facility protocol. 6. Indeterminate cardiac enzyme w/ Near Syncopal Event, Notable Orthostasis: Mildly elevated cardiac enzyme likely secondary to acute presentation with dehydration and renal injury acutely, admission troponin 0 0.082, EKG with flipped T waves as well as ST depression laterally which is new from prior but no recent. Near syncopal event likely secondary to severe dehydration with noted positive orthostatic vital signs, continue aggressive hydration, will maintain on cardiac monitoring, cycle cardiac enzymes and repeat EKG. ECHO requested given ? SM. 7. Hx Prior CVA: Patient w/ Mild residual R sided hemiplegia and memory impairment, not on regimen for many months to years, will re-resume if patient clinically appropriate aspirin therapy, at least moderate dose statin, BP regimen once acute kidney injury improved as well as resolution of intractable nausea and emesis but in interim we will have IV hydralazine. 8. Hypertension: Not on regimen for several months to years, once clinical improvement with resolution of DEANDRE and intractable nausea and emesis would initiate oral regimen, PRN IV hydralazine in interim. 9. Hyperlipidemia: Not on regimen for several months to years, once clinical improvement with resolution of DEANDRE and intractable nausea and emesis would initiate at least moderate statin therapy. 10. Tobacco Abuse: Encouraged cessation, inpatient consultation per RT, NR if desired. 11. Chronic severe protein-calorie malnutrition: Evidenced per BMI, habitus, obvious muscle and fat loss, nutrition consulted. 12. Hx GI bleed w/ Gastric and ? Duodenal ulcers: Likely contributing to acute presentation, maintain on IV PPI as noted. 13. DVT prophylaxis: SCDs, heparin. Code Visit Inpatient E&M: 00060 Init Hosp L3
[2019-06-27] MEDS: Potassium Chloride 10mEq/100mL 10 MEQ/100 ML IV.SOLN. 100 MEQ IV BOLUS ×4 (19:58→23:15)
[2019-06-27] MEDS: proMETHazine 25 MG/ML Syringe 12.5 MG IV (20:06)
[2019-06-27 20:49] LABS: Magnesium 2.4 mg/dL (1.6-2.6)
[2019-06-27] MEDS: HYDROcodone Bitartrate/Apap 5/325 Tablet PO (21:13)
[2019-06-27] MEDS: traZODone 50 MG Tablet PO (22:11)
[2019-06-27] MEDS: Heparin Injection (Vial) 5,000 UNIT/ML VIAL 5000 UNIT SC (22:12)
[2019-06-27] MEDS: 0.9% Saline Lock 10 ML Syringe IV ×2 (22:12→23:14)
[2019-06-27] MEDS: hydrALAZINE 20 MG/ML Vial 10 MG IV (23:14)
[2019-06-28] VITALS (17 sets, daily range): BP systolic 105–164; BP diastolic 76–116; PULSE 80–107; RESP 14–18; TEMP 36.3–37.3; O2SAT 98–100; BMI 15.7
--- NOTE | 2019-06-28 | EGD_PTH ---
PATIENT: DEYA PUGA LOC: [facility] U#:[id number] AGE/SX: 59/F ROOM: [facility] RE06/27/[address]: Dr. Blaise Crane MD : [id number] BED: 1 DIS: 06/29/2019 SPEC #: [id number] RECD: 06/28/19 13:59 STATUS: VICKI REQ #: [id number] TITUS: 06/28/19 00:[address]: Gerber Edmond DEPT: SURGICAL PATHOLOGY RECD BY: Piyush Jack ENTERED: 06/28/19 13:59 SP TYPE: EGD BIOPSY OTHR DR: MD Dr. Jorge Alberto Kurtz MD Dr. Prakash Chand, MD Dr. Richard Guttman, MD No Primary Care Phys Tissues: Esophagus, NOS Procedures: Special Stain Group I Surgery Specimen Level IV GMS Stain (control) Comments: @ Ordering doctor for SUIV edited from to @ by SHANTI at 06/28/19 153 @ Submitting doctor edited from to DR.[email or web address] Vasquez by SHANTI at 06/28/19 1535 HEADER OPERATION[place] [facility] [place] DIAGNOSIS: Dysphagia, failure to thrive, weight loss, history Lore-Javier tear TISSUE SUBMITTED: Biopsy of severe esophageal stenosis MICROSCOPIC DIAGNOSIS Esophagus, biopsy: Mild acute esophagitis. Focal fungal organisms consistent with Grace species. See comment. AM:jazmin 06/29/19 COMMENT AFB stain with matched control supports the above diagnosis. MICROSCOPIC DESCRIPTION Slides are reviewed. GROSS DESCRIPTION Received in fixative is one container labeled with the patient's name and designated biopsy of severe esophageal stenosis. The specimen consists of multiple irregular fragments of light sevilla soft tissue that in aggregate measure 0.4 x 0.3 x 0.1 cm. The specimen is totally submitted in one cassette. / SJ:jazmin 06/28/19 TC:2 CPT: 96649, 96708
[2019-06-28] MEDS: 0.9% Saline Lock 10 ML Syringe IV (00:06)
[2019-06-28] MEDS: Ondansetron 4 MG/2 ML Vial IV (00:06)
[2019-06-28 02:47] LABS: Anion Gap 11 (5-15); BUN 34 mg/dL (7-18); BUN/Creat Ratio 16.6 RATIO (10-20); Calcium,Total 7.8 mg/dL (8.5-10.1); Chloride 106 mmol/L (98-107); Creatinine, Serum 2.05 mg/dL (0.55-1.02); EST Glomerular Filtration Rate 26 mL/min (>60); Est Glom Filt Rate - Afr Amer 32 mL/min (>60); Estimated Creatinine Clearance 19.13 ml/min; Glucose 85 mg/dL (74-106); Potassium 2.1 mmol/L (3.5-5.1); Sodium Level 140 mmol/L (136-145)
[2019-06-28] MEDS: Potassium Chloride 10mEq/100mL 10 MEQ/100 ML IV.SOLN. 100 MEQ IV BOLUS ×8 (03:15→19:41)
[2019-06-28] MEDS: proMETHazine 25 MG/ML Syringe 6.25 MG IV (03:19)
[2019-06-28 04:55] LABS: Absolute Lymphocyte Count 2.37 X10^3/uL (0.83-4.51); Absolute Neutrophil Count 6.8 X10^3/uL (2.0-7.7); Basophil# 0.05 X10^3/uL; Basophil% 0.5 % (0-1); Eosinophil# 0.02 X10^3/uL; Eosinophils% 0.2 % (0-5); Hematocrit 48.2 % (37-47); Hemoglobin 16.3 g/dL (12.0-15.0); Lymphocyte # 2.37 X10^3/ul (4.0); Lymphocyte % 22.9 % (19-41); Mean Corp Hgb Conc 33.8 g/dL (32-36); Mean Corpuscular Hgb 30.9 pg (27.0-32.0); Mean Corpuscular Volume 91.3 fL (81-99); Monocyte# 1.07 X10^3/uL; Monocyte% 10.3 % (0-10); NRBC Flagged by Analyzer 0 % (0-5); Neutrophil % 65.6 % (47-70); Platelet Count 232 K/mm3 (150-450); RBC Distribution Width CV 15.1 % (11.6-14.6); RBC Distribution Width SD 50.1 fl (35.1-43.9); Red Blood Count 5.28 M/mm3 (4.2-5.4); White Blood Count 10.4 K/mm3 (4.4-11.0)
[2019-06-28 05:04] LABS: International Normalized Ratio 1.3
[2019-06-28 05:06] LABS: Partial Thromboplast Time 61.7 Seconds (24.1-36.2)
[2019-06-28] MEDS: HEPARIN/D5w 25,000 UNITS 25,000 UNITS/250 ML IV.SOLN. 7 UNITS IV (05:43)
--- NOTE | 2019-06-28 05:55 | EKG12_ITS ---
Test Reason : AM Blood Pressure : / mmHG Vent. Rate : 093 BPM Atrial Rate : 093 BPM P-R Int : 116 ms QRS Dur : 076 ms QT Int : 424 ms P-R-T Axes : 020 067 -75 degrees QTc Int : 527 ms Normal sinus rhythm ST & T wave abnormality, consider inferior ischemia ST & T wave abnormality, consider anterolateral ischemia Prolonged QT Abnormal ECG Confirmed by CYNDY SAHU, LANCE ([id number]), desk editor HEBERT GARZON ([id number]) on 07/02/2019 9:58:50 AM Referred By: Oma Costa Confirmed By:LANCE NAYLOR MD
--- NOTE | 2019-06-28 05:55 | ECHOD_ITS ---
Reason For Study: Murmur Procedure This was a 2D Doppler, Color Flow transthoracic echocardiogram. The study was technically difficult. Exam performed portable in patient room. Left Ventricle Normal LV size. Concentric left ventricular hypertrophy. The estimated ejection fraction is >70% %. Diastolic function is indeterminate. No regional wall motion abnormalities noted. Right Ventricle Normal RV size. Normal systolic function. Atria Normal left atrium. Normal right atrium. No doppler evidence for ASD. Mitral Valve There is no mitral valve stenosis. No mitral valve insufficiency. Tricuspid Valve There is no tricuspid stenosis. Trivial tricuspid valve insufficiency. Unable to estimate RV systolic pressure due to insufficient tricuspid regurgitant envelope. Aortic Valve Trisinus/trileaflet aortic valve. There is no aortic stenosis. No aortic valve insufficiency. Pulmonic Valve There is no pulmonic valvular stenosis. No pulmonic valve insufficiency. Great Vessels Normal aortic root. Pericardium/Pleural No pericardial effusion. MMode/2D Measurements & Calculations LVIDd: 3.0 cm IVSd: 1.5 cm Ao root diam: 3.5 cm LVIDs: 1.7 cm LVPWd: 1.3 cm RVDd: 2.0 cm FS: 43.2 % LAV(MOD-bp): 25.5 ml LA A4 area: 10.8 cm2 RA A4 area: 8.6 cm2 LAV(MOD-bp) Indexed: 18.6 ml/m2 LAV(MOD-sp2): 29.0 ml LAV(MOD-sp4): 21.3 ml Time Measurements MV dec time: 0.38 sec Doppler Measurements & Calculations MV E max дмитрий: 65.8 cm/sec Lat Peak E' Дмитрий: 4.0 cm/sec Med Peak E' Дмитрий: 4.8 cm/sec MV A max дмитрий: 96.0 cm/sec E/E' lat: 16.4 E/E' med: 13.6 MV E/A: 0.69 MV V2 max: 117.5 cm/sec MV P1/2t max дмитрий: 83.8 cm/sec Ao V2 max: 117.8 cm/sec MV max P.5 mmHg MV P1/2t: 81.3 msec Ao max P.5 mmHg MV V2 mean: 59.3 cm/sec MV dec slope: 301.9 cm/sec2 MV mean P.7 mmHg MVA(P1/2t): 2.7 cm2 MV V2 VTI: 24.9 cm LV V1 max: 124.6 cm/sec PA V2 max: 109.8 cm/sec LV V1 max P.2 mmHg Interpretation Summary The estimated ejection fraction is >70% %. Diastolic function is indeterminate. Trivial tricuspid valve insufficiency. Ordering Physician: Oma Costa Referring Physician: Oma Costa Performed By: Angel Weaver RCS
[2019-06-28 07:02] LABS: AST(SGOT) 23 U/L (15-37); Alanine Aminotransfer ALT/SGPT 14 U/L (13-56); Albumin, Serum 2.9 g/dL (3.2-5.0); Alkaline Phosphatase 72 U/L (45-117); Anion Gap 11 (5-15); BUN 33 mg/dL (7-18); BUN/Creat Ratio 16.6 RATIO (10-20); Calcium,Total 8.1 mg/dL (8.5-10.1); Chloride 106 mmol/L (98-107); Creatinine, Serum 1.99 mg/dL (0.55-1.02); EST Glomerular Filtration Rate 27 mL/min (>60); Est Glom Filt Rate - Afr Amer 33 mL/min (>60); Glucose 72 mg/dL (74-106); Potassium 2.7 mmol/L (3.5-5.1); Protein, Total 5.9 g/dL (6.4-8.2); Sodium Level 140 mmol/L (136-145)
[2019-06-28] MEDS: Aspirin 81 MG TAB.CHEW PO (08:22)
--- NOTE | 2019-06-28 08:31 | CON.PCM_ITS ---
Reason for Consult Date of Consultation: 06/28/19 Reason for Consultation: dysphasia, weight loss, failure to thrive. History of Present Illness: The patient is a 59 year old F with a previous history of esophageal stricture and a personal history of a cerebrovascular accident, aren't tobacco use, previous heavy alcohol use now occasional alcohol use who presents with complaints of failure to thrive poor appetite weight loss and dysphagia to solid foods. she states she required esophageal dilatation proximally 510 years previously. She presented to [facility] in January with complaints of dysphagia nausea and vomiting of blood. He had upper endoscopy performed at that time which demonstrated duodenal ulcer and what looked like a Lore-Javier tear in the distal esophagus. she has vomited food up but she denies any hematemesis or coffee grounds this admission I was consulted given the above history with plans for upper endoscopy. On presentation the patient noted a mildly tachycardic. Laboratory studies demonstrated a mildly elevated bilirubin. Initially her troponin was slightly elevated at 0.08. This went up overnight. I was asked to consider postponing endoscopy into the patient was seen by cardiology. Chest x-ray was obtained which demonstrated chronic COPD changes. CT scan of the brain demonstrated no acute findings. Past Medical History Past Medical History (Chronic Problems): Chronic Problems History of CVA (cerebrovascular accident) (Chronic) HLD (hyperlipidemia) (Chronic) Gastroesophageal reflux disease (Chronic) Depression (Chronic) Benign essential HTN (Chronic) Allergies No Known Allergies Allergy (Verified 06/27/19 15:40) Home Medications: Ambulatory Orders Medication Instructions Recorded NK 06/27/19 Surgical History: - - Thyroid cyst surgery, rib removal, tonsillectomy, prior esophageal dilations. Psychiatric History: Anxiety, Depression PROJ MGR History: No pertinent PROJ MGR history Lives: Roommate Smoking Status: Current every day smoker Tobacco Use: Cigarettes Alcohol: Occasional - Patient notes 1, 12 pack of beer will now last her approximately 3 weeks, previous heavy alcohol abuse reported in history, denies this currently. Drugs: None - *Family History Maternal Family History: Family History (Last Updated 01/18/19 @ 04:11 by Musa Navarrete MD) Brother Alcoholism Father CVA (cerebral vascular accident) History Items: - - Patient states she does not know any of her maternal family history as her mother when she was 5 years old but she denies any history of heart disease, diabetes, cancer, unclear etiology for . Paternal Family History: Family History (Last Updated 01/18/19 @ 04:11 by Musa Navarrete MD) Brother Alcoholism Father CVA (cerebral vascular accident) History Items: Stroke Review of Systems Constitutional: Reports: Malaise, Weight Change, Fatigue. Denies: Chills, Fever HEENT: Reports: Nasal Congestion. Denies: Head Aches, Sinus Congestion, Sinus Drainage Cardiovascular: Denies: Chest Pain, Palpitations Respiratory: Reports: Cough. Denies: Shortness of breath at rest, Sputum production Gastrointestinal: Reports: Abdominal Pain, Nausea, Vomiting Genitourinary: Denies: Dysuria Musculoskeletal: Denies: Joint Pain, Joint Tenderness Skin: Denies: Rash, Wounds Neurological: Reports: Difficulty swallowing, Focal weakness. Denies: Numbness, Tingling Psychiatric: Denies: Anxiety, Depression, Homicidal Ideations, Suicidal Ideations Hematologic/ Lymphatic: Denies: Easy Bruising, Easy Bleeding Patient Problems: Active and Suspected Problems Dysphagia (Acute) Esophageal stricture (Suspected) Hypokalemia (Acute) DEANDRE (acute kidney injury) (Acute) Lactic acid acidosis (Acute) Cardiac enzymes elevated (Acute) - Physical Exam Vitals/I&O's: Vital Signs Temp Pulse Resp BP Pulse Ox 97.5 F L 82 17 156/115 H 99 06/28/19 08:17 06/28/19 08:17 06/28/19 08:17 06/28/19 08:17 06/28/19 08:17 Oxygen Delivery Method Room Air Weight: 40.5 kg Body Mass Index (BMI) 15.7 Orthostatic Vital Signs Start: 06/27/19 22:57 Freq: 0600 Status: Active Protocol: Activity Type Activity Date Activity User E-Sign Co-Sign Detail Recorded Client Recorded Date Recorded By Document 06/28/19 05:10 BS [id number] 06/28/19 05:11 BS 06/28/19 05:10 Orthostatic Vitals Standing -Blood Pressure (90/60-120/80) 138/116 H -Extremity Use Right Arm -Pulse Rate (60-100) 107 H Sitting -Blood Pressure (90/60-120/80) 164/116 H -Extremity Use Right Arm -Pulse Rate (60-100) 102 H Lying -Blood Pressure (90/60-120/80) 158/104 H -Extremity Use Right Arm -Pulse Rate (60-100) 95 Intake and Output for Last 24 Hours 06/26/19 06/27/19 06/28/19 23:59 23:59 23:59 Intake Total 1900 / 1900 1350 / 1350 Output Total 300 / 300 Balance 1600 / 1600 1350 / 1350 General: Alert, Oriented x3, Cooperative HEENT: PERRLA, EOMI Lungs: Rhonchi Cardiovascular: Regular rate, Regular Rhythm, No murmurs Abdomen: Bowel Sounds Present, Soft, Non Tender, Non-Distended Laboratory Results 06/27/19 16:10: Urine Color Yellow, Urine Clarity Cloudy, Urine pH 6.0, Ur Specific [place] 1.020, Urine Protein 30 H, Urine Glucose (UA) Normal, Urine Ketones 5 H, Urine Occult Blood 25 H, Urine Nitrite Negative, Urine Bilirubin 1 H, Urine Urobilinogen 1 H, Ur Leukocyte Esterase 500 H, Urine RBC 0 SEEN, Urine WBC 10-25 SEEN, Ur Squamous Epith Cells 10-25 SEEN, Urine Bacteria RARE, Hyaline Casts 0-5 SEEN, Urine Mucus 0 SEEN 06/27/19 16:25: WBC 11.9 H, RBC 6.13 H, Hgb 19.1 H*, Hct 53.7 H, MCV 87.6, MCH 31.2, MCHC 35.6, RDW Std Deviation 46.9 H, RDW Coeff of Richard 15.6 H, Plt Count 306, MPV 10.7, Immature Gran % (Auto) 0.500, Neut % (Auto) 64.9, Lymph % (Auto) 23.0, [place] % (Auto) 11.2 H, Eos % (Auto) 0.0, Baso % (Auto) 0.4, Absolute Neuts (auto) 7.7, Absolute Lymphs (auto) 2.74, Nucleated RBC % 0, Diff Path Review December06/27/19 16:25: Sodium Cancelled, Potassium Cancelled, Chloride Cancelled, Carbon Dioxide Cancelled, Anion Gap Cancelled, BUN Cancelled, Creatinine Cancelled, Estim Creat Clear Calc Cancelled, Est GFR (MDRD) Af Amer Cancelled, Est GFR (MDRD) Non-Af Cancelled, BUN/Creatinine Ratio Cancelled, Glucose Cancelled, Calcium Cancelled, Total Bilirubin Cancelled, Direct Bilirubin Cancelled, AST Cancelled, ALT Cancelled, Alkaline Phosphatase Cancelled, Troponin I Cancelled, Total Protein Cancelled, Albumin Cancelled, Globulin Cancelled 06/27/19 16:25: Lactic Acid Cancelled 06/27/19 18:05: Lactic Acid 2.2 H 06/27/19 18:05: Sodium 136, Potassium 1.8 L*, Chloride 97 L, Carbon Dioxide 26.0, Anion Gap 13, BUN 35 H, Creatinine 2.34 H, Estim Creat Clear Calc 15.93, Est GFR (MDRD) Af Amer 28 L, Est GFR (MDRD) Non-Af 23 L, BUN/Creatinine Ratio 15.0, Glucose 104, Calcium 8.5, Total Bilirubin 1.40 H, Direct Bilirubin 0.48 H, AST 20, ALT 15, Alkaline Phosphatase 83, Troponin I 0.082 H, Total Protein 6.4, Albumin 2.9 L, Globulin 3.5 06/27/19 18:05: Magnesium 2.4 06/27/19 21:35: Troponin I 0.090 H 06/28/19 01:55: Sodium 140, Potassium 2.1 L*, Chloride 106, Carbon Dioxide 23.0, Anion Gap 11, BUN 34 H, Creatinine 2.05 H, Estim Creat Clear Calc 19.13, Est GFR (MDRD) Af Amer 32 L, Est GFR (MDRD) Non-Af 26 L, BUN/Creatinine Ratio 16.6, Glucose 85, Calcium 7.8 L 06/28/19 01:55: Troponin I 0.112 H 06/28/19 04:45: WBC 10.4, RBC 5.28, Hgb 16.3 H, Hct 48.2 H, MCV 91.3, MCH 30.9, MCHC 33.8, RDW Std Deviation 50.1 H, RDW Coeff of Richard 15.1 H, Plt Count 232, MPV 11.0, Immature Gran % (Auto) 0.500, Neut % (Auto) 65.6, Lymph % (Auto) 22.9, [place] % (Auto) 10.3 H, Eos % (Auto) 0.2, Baso % (Auto) 0.5, Absolute Neuts (auto) 6.8, Absolute Lymphs (auto) 2.37, Nucleated RBC % 0 06/28/19 04:45: PT 16.0 H, INR 1.3, APTT 61.7 H 06/28/19 06:10: Sodium 140, Potassium 2.7 L*, Chloride 106, Carbon Dioxide 23.0, Anion Gap 11, BUN 33 H, Creatinine 1.99 H, Estim Creat Clear Calc 19.70, Est GFR (MDRD) Af Amer 33 L, Est GFR (MDRD) Non-Af 27 L, BUN/Creatinine Ratio 16.6, Glucose 72 L, Calcium 8.1 L, Total Bilirubin 1.60 H, AST 23, ALT 14, Alkaline Phosphatase 72, Total Protein 5.9 L, Albumin 2.9 L, Globulin 3.0, Albumin/Globulin Ratio 1.0 06/28/19 06:10: Troponin I 0.098 H Current Medications Acetaminophen (Tylenol) 650 mg PO Q6H PRN PRN PRN Reason: Non-cardiac pain (mod-severe) Hydrocodone Bitart/Acetaminophen ([place] 5mg-325mg) 1 - 2 tablet PO Q4H PRN PRN PRN Reason: Pain Score 4-10/10 Last Admin: 06/27/19 21:13 Dose: 2 tablet Documented by: Al Hydroxide/Mg Hydroxide (Mylanta Ii) 15 - 30 ml PO Q4H PRN PRN PRN Reason: INDIGESTION Albuterol Sulfate (Ventolin Aerosols) 2.5 mg INHALATION Q2H PRN PRN PRN Reason: dyspnea, wheezing Aspirin (Aspirin, Baby) 81 mg PO DAILY@0800 [facility] Last Admin: 06/28/19 08:22 Dose: 81 mg Documented by: Atorvastatin Calcium (Lipitor) 40 mg PO QHS [facility] Dextrose (D50w Syringe) 0 gm IV X1 PRN; Protocol PRN Reason: Hypoglycemia Glucagon () 1 mg IM .X1 PRN PRN Reason: Hypoglycemia Guaifenesin (Robitussin) 10 ml PO Q4H PRN PRN PRN Reason: COUGH Heparin Sodium (Porcine) (Heparin Na) 0 unit IV UD PRN; Protocol Hydralazine HCl (Apresoline Iv) 10 mg IV Q4H PRN PRN PRN Reason: SBP > 160 Last Admin: 06/27/19 23:14 Dose: 10 mg Documented by: Pantoprazole Sodium 40 mg/ (Sodium Chloride) 110 mls @ 330 mls/hr IV Q12 [facility] Last Admin: 06/28/19 08:23 Dose: 330 mls/hr Documented by: Potassium Chloride/Sodium Chloride () 1,000 mls @ 100 mls/hr IV .Q10H [facility] Last Admin: 06/28/19 04:14 Dose: 100 mls/hr Documented by: Sodium Chloride () 250 mls @ 15 mls/hr IV .[id number] PRN PRN Reason: Saline Flush Heparin Sodium/Dextrose () 25,000 units in 250 mls @ 7 mls/hr IV .[id number] [facility]; Protocol Last Admin: 06/28/19 05:43 Dose: 700 units/hr, 7 mls/hr Documented by: Influenza Virus Vaccine Quadrival (Flucelvax /Fluzone ) 0.5 ml IM .ONCE ONE Stop: 06/28/19 10:01 Last Admin: 06/28/19 08:22 Dose: 0.5 ml Documented by: Magnesium Hydroxide (Milk Of Magnesia) 30 ml PO DAILY PRN PRN Reason: Constipation Melatonin (Melatonin) 3 mg PO QHS PRN PRN PRN Reason: INSOMNIA Morphine Sulfate () 1 - 2 mg IV Q4H PRN PRN PRN Reason: Pain Score 1-10/10 Nitroglycerin (Nitrostat) 0.4 mg SUBLINGUAL Q5M PRN PRN Reason: CARDIAC/CHEST PAIN Nutritional Formula (Lactose Free) (Ensure Clear) 120 ml PO 4X/DAY [facility] Last Admin: 06/27/19 22:10 Dose: Not Given Documented by: Ondansetron HCl (Zofran) 4 mg IV Q8H PRN PRN PRN Reason: NAUSEA/VOMITING Last Admin: 06/28/19 00:06 Dose: 4 mg Documented by: Promethazine HCl (Phenergan) 6.25 mg IV Q4H PRN PRN PRN Reason: NAUSEA/VOMITING Last Admin: 06/28/19 03:19 Dose: 6.25 mg Documented by: Sodium Chloride () 10 - 40 ml IV UD PRN PRN Reason: SALINE FLUSH Last Admin: 06/28/19 00:06 Dose: 20 ml Documented by: Trazodone HCl (Desyrel) 50 mg PO QHS [facility] Last Admin: 06/27/19 22:11 Dose: 50 mg Documented by: Assessment/Plan All Active Problems Acute narcotic withdrawal (Acute) EtOH dependence (Acute) Alcohol withdrawal (Acute) Coffee ground emesis (Acute) Dysphagia (Acute) Hypokalemia (Acute) DEANDRE (acute kidney injury) (Acute) Lactic acid acidosis (Acute) Cardiac enzymes elevated (Acute) vomiting, dysphagia, history of esophageal dilatation, failure to thrive weight loss, multiple medical issues, questionable mildly elevated cardiac enzymes Once the patient is approved by cardiology, my plan would perform upper endoscopy. The patient says the risks, benefits, complications, possible alternatives and consents to the planned procedure.
--- NOTE | 2019-06-28 11:52 | OP.EGD_ITS ---
Patient Name: Arabella Bcuhanan Procedure Date: 06/28/2019 9:59 AM Date of : 1960 Age: 59 Procedure: Upper GI endoscopy Indications: Dysphagia, Follow-up of esophageal stenosis Providers: Gerber Edmond MD Referring MD: Oma Costa Medicines: Monitored Anesthesia Care Patient Profile: This is a 59 year old female. Refer to note in patient chart for documentation of history and physical. Complications: No immediate complications. Procedure: Pre-Anesthesia Assessment: - Prior to the procedure, a History and Physical was performed, and patient medications and allergies were reviewed. The patient is competent. The risks and benefits of the procedure and the sedation options and risks were discussed with the patient. All questions were answered and informed consent was obtained. Patient identification and proposed procedure were verified by the physician, the nurse and the turning and beading machine operator in the endoscopy suite. Mental Status Examination: alert and oriented. Airway Examination: normal oropharyngeal airway and neck mobility. Respiratory Examination: clear to auscultation. CV Examination: normal. Prophylactic Antibiotics: The patient does not require prophylactic antibiotics. Prior Anticoagulants: The patient has taken no previous anticoagulant or antiplatelet agents. ASA Grade Assessment: III - A patient with severe systemic disease. After reviewing the risks and benefits, the patient was deemed in satisfactory condition to undergo the procedure. The anesthesia plan was to use monitored anesthesia care (MAC). Immediately prior to administration of medications, the patient was re-assessed for adequacy to receive sedatives. The heart rate, respiratory rate, oxygen saturations, blood pressure, adequacy of pulmonary ventilation, and response to care were monitored throughout the procedure. The physical status of the patient was re-assessed after the procedure. After obtaining informed consent, the endoscope was passed under direct vision. Throughout the procedure, the patient's blood pressure, pulse, and oxygen saturations were monitored continuously. The gastroscope was introduced through the mouth, and advanced to the lower third of esophagus. The patient tolerated the procedure well. Scope In: 11:43:25 AM Scope Out: 11:46:07 AM Total Procedure Duration Time 0 hours 2 minutes 42 seconds Findings: One benign-appearing, intrinsic stenosis was found 35 cm from the incisors. This stenosis was severe and measured 4 mm (inner diameter). The stenosis was not traversed. The lesion was not amenable to dilation, and this was not attempted. Biopsies were taken with a cold forceps for histology. Impression: - Benign-appearing esophageal stenosis. Lesion not amenable to dilation, and not attempted. Biopsied. Recommendation: - [facility]. - Refer to a informatics manager at the next available appointment. - Continue present medications. Procedure Code(s): --- Professional --- 54234, Esophagoscopy, flexible, transoral; with biopsy, single or multiple CPT copyright 2017 [employer]. All rights reserved. The codes documented in this report are preliminary and upon instructional supervisor review may be revised to meet current compliance requirements. Gerber Edmond MD 06/28/2019 11:51:45 AM This report has been signed electronically. Number of Addenda: 0 Note Initiated On: 06/28/2019 9:59 AM
--- NOTE | 2019-06-28 11:56 | CASEMGMT ---
According to the [facility] website, the following are in-network tertiary facilities: [facility], [place], [facility], [facility], [facility], [facility], and . Laurence HOGAN CM
[2019-06-28 12:21] LABS: Potassium 2.8 mmol/L (3.5-5.1)
[2019-06-28 12:35] LABS: Partial Thromboplast Time 54.1 Seconds (24.1-36.2)
[2019-06-28] MEDS: Ensure Clear 120 ML Liquid PO (14:44)
--- NOTE | 2019-06-28 15:19 | PCM.PROGNOTE ---
<Ida Cardenas - Last Filed: 06/28/19 15:21> Subjective: Patient seen and examined. Awaiting bed at [facility] due to severe esophageal stenosis which was found on EGD this morning. Patient is angry she is on clear liquid diet. Educated on reason for this. - Physical Exam Vitals/I&O's: Vital Signs Temp Pulse Resp BP Pulse Ox 97.4 F L 82 16 145/106 H 100 06/28/19 14:47 06/28/19 14:47 06/28/19 14:47 06/28/19 14:47 06/28/19 14:47 Oxygen Flow Rate (L/min) 3 Oxygen Delivery Method Room Air Weight: 89 lb 4.595 oz Body Mass Index (BMI) 15.7 Orthostatic Vital Signs Start: 06/27/19 22:57 Freq: 0600 Status: Active Protocol: Activity Type Activity Date Activity User E-Sign Co-Sign Detail Recorded Client Recorded Date Recorded By Document 06/28/19 05:10 BS [id number] 06/28/19 05:11 BS 06/28/19 05:10 Orthostatic Vitals Standing -Blood Pressure (90/60-120/80) 138/116 H -Extremity Use Right Arm -Pulse Rate (60-100) 107 H Sitting -Blood Pressure (90/60-120/80) 164/116 H -Extremity Use Right Arm -Pulse Rate (60-100) 102 H Lying -Blood Pressure (90/60-120/80) 158/104 H -Extremity Use Right Arm -Pulse Rate (60-100) 95 Intake and Output for Last 24 Hours 06/26/19 06/27/19 06/28/19 23:59 23:59 23:59 Intake Total 1900 / 1900 2289.98 / 2289.98 Output Total 300 / 300 Balance 1600 / 1600 2289.98 / 2289.98 General: Alert, Oriented x3, Cooperative HEENT: Atraumatic, PERRLA, EOMI, Normocephalic Oral: Dry Mucosa Neck: Supple, No JVD, Negative Carotid Bruits Lungs: Clear to auscultation, Normal air movement Cardiovascular: Regular rate, Regular Rhythm, Normal S1, Normal S2, No murmurs Abdomen: Bowel Sounds Present, Soft, Non Tender, Non-Distended Extremities: No clubbing, No cyanosis, No edema, Capillary Refill Less than 3 Seconds Skin: No rashes, No breakdown Musculoskeletal: No Tenderness to Palpation of Joints or Extremities Neurological: Cranial nerves II-XII grossly intact, Neuro grossly intact Psych/Mental Status: Normal Affect, Appropriate Microbiology Past 72 Hours 06/27/19 22:45 Mucosa - Nasopharyngeal Respiratory Panel (PCR) - Final Laboratory Results 06/27/19 16:10: Urine Color Yellow, Urine Clarity Cloudy, Urine pH 6.0, Ur Specific [place] 1.020, Urine Protein 30 H, Urine Glucose (UA) Normal, Urine Ketones 5 H, Urine Occult Blood 25 H, Urine Nitrite Negative, Urine Bilirubin 1 H, Urine Urobilinogen 1 H, Ur Leukocyte Esterase 500 H, Urine RBC 0 SEEN, Urine WBC 10-25 SEEN, Ur Squamous Epith Cells 10-25 SEEN, Urine Bacteria RARE, Hyaline Casts 0-5 SEEN, Urine Mucus 0 SEEN 06/27/19 16:25: WBC 11.9 H, RBC 6.13 H, Hgb 19.1 H*, Hct 53.7 H, MCV 87.6, MCH 31.2, MCHC 35.6, RDW Std Deviation 46.9 H, RDW Coeff of Richard 15.6 H, Plt Count 306, MPV 10.7, Immature Gran % (Auto) 0.500, Neut % (Auto) 64.9, Lymph % (Auto) 23.0, [place] % (Auto) 11.2 H, Eos % (Auto) 0.0, Baso % (Auto) 0.4, Absolute Neuts (auto) 7.7, Absolute Lymphs (auto) 2.74, Nucleated RBC % 0, Diff Path Review December06/27/19 16:25: Sodium Cancelled, Potassium Cancelled, Chloride Cancelled, Carbon Dioxide Cancelled, Anion Gap Cancelled, BUN Cancelled, Creatinine Cancelled, Estim Creat Clear Calc Cancelled, Est GFR (MDRD) Af Amer Cancelled, Est GFR (MDRD) Non-Af Cancelled, BUN/Creatinine Ratio Cancelled, Glucose Cancelled, Calcium Cancelled, Total Bilirubin Cancelled, Direct Bilirubin Cancelled, AST Cancelled, ALT Cancelled, Alkaline Phosphatase Cancelled, Troponin I Cancelled, Total Protein Cancelled, Albumin Cancelled, Globulin Cancelled 06/27/19 16:25: Lactic Acid Cancelled 06/27/19 18:05: Lactic Acid 2.2 H 06/27/19 18:05: Sodium 136, Potassium 1.8 L*, Chloride 97 L, Carbon Dioxide 26.0, Anion Gap 13, BUN 35 H, Creatinine 2.34 H, Estim Creat Clear Calc 15.93, Est GFR (MDRD) Af Amer 28 L, Est GFR (MDRD) Non-Af 23 L, BUN/Creatinine Ratio 15.0, Glucose 104, Calcium 8.5, Total Bilirubin 1.40 H, Direct Bilirubin 0.48 H, AST 20, ALT 15, Alkaline Phosphatase 83, Troponin I 0.082 H, Total Protein 6.4, Albumin 2.9 L, Globulin 3.5 06/27/19 18:05: Magnesium 2.4 06/27/19 21:35: Troponin I 0.090 H 06/28/19 01:55: Sodium 140, Potassium 2.1 L*, Chloride 106, Carbon Dioxide 23.0, Anion Gap 11, BUN 34 H, Creatinine 2.05 H, Estim Creat Clear Calc 19.13, Est GFR (MDRD) Af Amer 32 L, Est GFR (MDRD) Non-Af 26 L, BUN/Creatinine Ratio 16.6, Glucose 85, Calcium 7.8 L 06/28/19 01:55: Troponin I 0.112 H 06/28/19 04:45: WBC 10.4, RBC 5.28, Hgb 16.3 H, Hct 48.2 H, MCV 91.3, MCH 30.9, MCHC 33.8, RDW Std Deviation 50.1 H, RDW Coeff of Richard 15.1 H, Plt Count 232, MPV 11.0, Immature Gran % (Auto) 0.500, Neut % (Auto) 65.6, Lymph % (Auto) 22.9, [place] % (Auto) 10.3 H, Eos % (Auto) 0.2, Baso % (Auto) 0.5, Absolute Neuts (auto) 6.8, Absolute Lymphs (auto) 2.37, Nucleated RBC % 0 06/28/19 04:45: PT 16.0 H, INR 1.3, APTT 61.7 H 06/28/19 06:10: Sodium 140, Potassium 2.7 L*, Chloride 106, Carbon Dioxide 23.0, Anion Gap 11, BUN 33 H, Creatinine 1.99 H, Estim Creat Clear Calc 19.70, Est GFR (MDRD) Af Amer 33 L, Est GFR (MDRD) Non-Af 27 L, BUN/Creatinine Ratio 16.6, Glucose 72 L, Calcium 8.1 L, Total Bilirubin 1.60 H, AST 23, ALT 14, Alkaline Phosphatase 72, Total Protein 5.9 L, Albumin 2.9 L, Globulin 3.0, Albumin/Globulin Ratio 1.0 06/28/19 06:10: Troponin I 0.098 H 06/28/19 12:05: APTT 54.1 H 06/28/19 12:05: Potassium 2.8 L Current Medications Acetaminophen (Tylenol) 650 mg PO Q6H PRN PRN PRN Reason: Non-cardiac pain (mod-severe) Hydrocodone Bitart/Acetaminophen ([place] 5mg-325mg) 1 - 2 tablet PO Q4H PRN PRN PRN Reason: Pain Score 4-10/10 Last Admin: 06/27/19 21:13 Dose: 2 tablet Documented by: Al Hydroxide/Mg Hydroxide (Mylanta Ii) 15 - 30 ml PO Q4H PRN PRN PRN Reason: INDIGESTION Albuterol Sulfate (Ventolin Aerosols) 2.5 mg INHALATION Q2H PRN PRN PRN Reason: dyspnea, wheezing Aspirin (Aspirin, Baby) 81 mg PO DAILY@0800 [facility] Last Admin: 06/28/19 08:22 Dose: 81 mg Documented by: Atorvastatin Calcium (Lipitor) 40 mg PO QHS [facility] Dextrose (D50w Syringe) 0 gm IV X1 PRN; Protocol PRN Reason: Hypoglycemia Glucagon () 1 mg IM .X1 PRN PRN Reason: Hypoglycemia Guaifenesin (Robitussin) 10 ml PO Q4H PRN PRN PRN Reason: COUGH Heparin Sodium (Porcine) (Heparin Na) 0 unit IV UD PRN; Protocol Hydralazine HCl (Apresoline Iv) 10 mg IV Q4H PRN PRN PRN Reason: SBP > 160 Last Admin: 06/27/19 23:14 Dose: 10 mg Documented by: Pantoprazole Sodium 40 mg/ (Sodium Chloride) 110 mls @ 330 mls/hr IV Q12 [facility] Last Infusion: 06/28/19 09:20 Dose: Infused Documented by: Potassium Chloride/Sodium Chloride () 1,000 mls @ 100 mls/hr IV .Q10H [facility] Last Admin: 06/28/19 04:14 Dose: 100 mls/hr Documented by: Sodium Chloride () 250 mls @ 15 mls/hr IV .[id number] PRN PRN Reason: Saline Flush Potassium Chloride () 10 meq in 100 mls @ 100 mls/hr IV BOLUS Q1H [facility] Stop: 06/28/19 17:59 Last Admin: 06/28/19 14:41 Dose: 100 mls/hr Documented by: Magnesium Hydroxide (Milk Of Magnesia) 30 ml PO DAILY PRN PRN Reason: Constipation Melatonin (Melatonin) 3 mg PO QHS PRN PRN PRN Reason: INSOMNIA Morphine Sulfate () 1 - 2 mg IV Q4H PRN PRN PRN Reason: Pain Score 1-10/10 Nitroglycerin (Nitrostat) 0.4 mg SUBLINGUAL Q5M PRN PRN Reason: CARDIAC/CHEST PAIN Nutritional Formula (Lactose Free) (Ensure Clear) 120 ml PO 4X/DAY [facility] Last Admin: 06/28/19 14:44 Dose: 120 ml Documented by: Ondansetron HCl (Zofran) 4 mg IV Q8H PRN PRN PRN Reason: NAUSEA/VOMITING Last Admin: 06/28/19 00:06 Dose: 4 mg Documented by: Promethazine HCl (Phenergan) 6.25 mg IV Q4H PRN PRN PRN Reason: NAUSEA/VOMITING Last Admin: 06/28/19 03:19 Dose: 6.25 mg Documented by: Sodium Chloride () 10 - 40 ml IV UD PRN PRN Reason: SALINE FLUSH Last Admin: 06/28/19 00:06 Dose: 20 ml Documented by: Trazodone HCl (Desyrel) 50 mg PO QHS [facility] Last Admin: 06/27/19 22:11 Dose: 50 mg Documented by: Medical Necessity - Tobacco Use Smoking Status: Current every day smoker Tobacco Use: Cigarettes Assessment/Plan All Active Problems Acute narcotic withdrawal (Acute) EtOH dependence (Acute) Alcohol withdrawal (Acute) Coffee ground emesis (Acute) Dysphagia (Acute) Hypokalemia (Acute) DEANDRE (acute kidney injury) (Acute) Lactic acid acidosis (Acute) Cardiac enzymes elevated (Acute) 1. Severe esophageal stenosis with worsening dysphagia, history of esophageal strictures status post dilation 5 years ago-General surgery, Dr. Cornell consulted during admission. Patient underwent EGD 06/28/2018 which showed 1 benign-appearing, intrinsic stenosis found to 35 cm from the incisors. Stenosis was noted to be severe and measured 4 mm. Lesion not amenable to dilation. Recommended transfer to tertiary facility where GI is available for dilation. Biopsy taken. Transfer to [facility] facility pending bed availability. On clear liquids. 2. Poor oral intake, nausea and vomiting-suspect secondary to 1. Improved. 3. Hypokalemia, secondary to #2-replaced per protocol, trend BMP. 4. Acute kidney injury, secondary to #2-improving with IV fluids. 5. Lactic acidosis secondary to dehydration 6. Indeterminate troponin, suspect demand ischemia as result of acute presentation-troponin did not trend. EKG without ST-T changes. Echocardiogram completed, report pending at discharge. 7. Presyncope, secondary to orthostatic hypotension-orthostatic vitals positive. Aggressive IV fluids. 8. 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 Not on home regimen. Recommend aspirin, statin upon discharge from acute care facility. 9. Hypertension-not on regimen, blood pressure stable. 10. Hyperlipidemia-not on regimen. 11. Tobacco dependence-encourage cessation. 12. Chronic severe protein calorie malnutrition-nutrition consult. 13. History of GI bleed with gastric and duodenal ulcers-IV PPI. DVT prophylaxis-heparin subcu This patient was seen by JASON Rutherford under the supervision of Dr. Crane. <Blaise Crane - Last Filed: 06/28/19 17:11> Subjective: Seen and examined. Patient was admitted for dysphagia, nausea and vomiting 2 weeks prior to admission. She has history of esophageal stricture and had dilatation about [address] Cornell. Patient also had weight loss but she is not sure about how much weight in almost duration. Currently BMI 15 with weight 89 pounds. Sharp abdominal stabbing discomfort with fatigue. Also complain of left-sided rib pain after she had a fall. Discussed with Dr. Edmond in the morning and she had EGD which showed severe lower one third esophageal stricture and not able to pass a scope but only bougie and was unable to dilate. - Physical Exam Vitals/I&O's: Vital Signs Temp Pulse Resp BP Pulse Ox 97.4 F L 85 16 145/106 H 100 06/28/19 14:47 06/28/19 15:59 06/28/19 14:47 06/28/19 14:47 06/28/19 14:47 Oxygen Flow Rate (L/min) 3 Oxygen Delivery Method Room Air Weight: 89 lb 4.595 oz Body Mass Index (BMI) 15.7 Orthostatic Vital Signs Start: 06/27/19 22:57 Freq: 0600 Status: Active Protocol: Activity Type Activity Date Activity User E-Sign Co-Sign Detail Recorded Client Recorded Date Recorded By Document 06/28/19 05:10 BS [id number] 06/28/19 05:11 BS 06/28/19 05:10 Orthostatic Vitals Standing -Blood Pressure (90/60-120/80) 138/116 H -Extremity Use Right Arm -Pulse Rate (60-100) 107 H Sitting -Blood Pressure (90/60-120/80) 164/116 H -Extremity Use Right Arm -Pulse Rate (60-100) 102 H Lying -Blood Pressure (90/60-120/80) 158/104 H -Extremity Use Right Arm -Pulse Rate (60-100) 95 Intake and Output for Last 24 Hours 06/26/19 06/27/19 06/28/19 23:59 23:59 23:59 Intake Total 1900 / 1900 3389.98 / 3389.98 Output Total 300 / 300 Balance 1600 / 1600 3389.98 / 3389.98 General: Alert, Oriented x3, Cooperative HEENT: Atraumatic, PERRLA, EOMI, Normocephalic Neck: Supple, No JVD, Negative Carotid Bruits Lungs: Clear to auscultation, Normal air movement, No rhonchi, No wheeze, No rales Cardiovascular: Regular rate, Regular Rhythm, Normal S1, Normal S2, No murmurs Abdomen: Bowel Sounds Present, Soft, Non Tender, Non-Distended Extremities: No edema, Capillary Refill Less than 3 Seconds Skin: No rashes, No breakdown Musculoskeletal: No Tenderness to Palpation of Joints or Extremities, Arthritic Changes, Muscle Wasting Neurological: Cranial nerves II-XII grossly intact, Deep Tendon Reflexes 2+/4 and Symmetrical, Neuro grossly intact Psych/Mental Status: Normal Affect, Appropriate Microbiology Past 72 Hours 06/27/19 22:45 Mucosa - Nasopharyngeal Respiratory Panel (PCR) - Final Laboratory Results 06/27/19 16:25: Sodium Cancelled, Potassium Cancelled, Chloride Cancelled, Carbon Dioxide Cancelled, Anion Gap Cancelled, BUN Cancelled, Creatinine Cancelled, Estim Creat Clear Calc Cancelled, Est GFR (MDRD) Af Amer Cancelled, Est GFR (MDRD) Non-Af Cancelled, BUN/Creatinine Ratio Cancelled, Glucose Cancelled, Calcium Cancelled, Total Bilirubin Cancelled, Direct Bilirubin Cancelled, AST Cancelled, ALT Cancelled, Alkaline Phosphatase Cancelled, Troponin I Cancelled, Total Protein Cancelled, Albumin Cancelled, Globulin Cancelled 06/27/19 16:25: Lactic Acid Cancelled 06/27/19 18:05: Lactic Acid 2.2 H 06/27/19 18:05: Sodium 136, Potassium 1.8 L*, Chloride 97 L, Carbon Dioxide 26.0, Anion Gap 13, BUN 35 H, Creatinine 2.34 H, Estim Creat Clear Calc 15.93, Est GFR (MDRD) Af Amer 28 L, Est GFR (MDRD) Non-Af 23 L, BUN/Creatinine Ratio 15.0, Glucose 104, Calcium 8.5, Total Bilirubin 1.40 H, Direct Bilirubin 0.48 H, AST 20, ALT 15, Alkaline Phosphatase 83, Troponin I 0.082 H, Total Protein 6.4, Albumin 2.9 L, Globulin 3.5 06/27/19 18:05: Magnesium 2.4 06/27/19 21:35: Troponin I 0.090 H 06/28/19 01:55: Sodium 140, Potassium 2.1 L*, Chloride 106, Carbon Dioxide 23.0, Anion Gap 11, BUN 34 H, Creatinine 2.05 H, Estim Creat Clear Calc 19.13, Est GFR (MDRD) Af Amer 32 L, Est GFR (MDRD) Non-Af 26 L, BUN/Creatinine Ratio 16.6, Glucose 85, Calcium 7.8 L 06/28/19 01:55: Troponin I 0.112 H 06/28/19 04:45: WBC 10.4, RBC 5.28, Hgb 16.3 H, Hct 48.2 H, MCV 91.3, MCH 30.9, MCHC 33.8, RDW Std Deviation 50.1 H, RDW Coeff of Richard 15.1 H, Plt Count 232, MPV 11.0, Immature Gran % (Auto) 0.500, Neut % (Auto) 65.6, Lymph % (Auto) 22.9, [place] % (Auto) 10.3 H, Eos % (Auto) 0.2, Baso % (Auto) 0.5, Absolute Neuts (auto) 6.8, Absolute Lymphs (auto) 2.37, Nucleated RBC % 0 06/28/19 04:45: PT 16.0 H, INR 1.3, APTT 61.7 H 06/28/19 06:10: Sodium 140, Potassium 2.7 L*, Chloride 106, Carbon Dioxide 23.0, Anion Gap 11, BUN 33 H, Creatinine 1.99 H, Estim Creat Clear Calc 19.70, Est GFR (MDRD) Af Amer 33 L, Est GFR (MDRD) Non-Af 27 L, BUN/Creatinine Ratio 16.6, Glucose 72 L, Calcium 8.1 L, Total Bilirubin 1.60 H, AST 23, ALT 14, Alkaline Phosphatase 72, Total Protein 5.9 L, Albumin 2.9 L, Globulin 3.0, Albumin/Globulin Ratio 1.0 06/28/19 06:10: Troponin I 0.098 H 06/28/19 12:05: APTT 54.1 H 06/28/19 12:05: Potassium 2.8 L Current Medications Acetaminophen (Tylenol) 650 mg PO Q6H PRN PRN PRN Reason: Non-cardiac pain (mod-severe) Hydrocodone Bitart/Acetaminophen ([place] 5mg-325mg) 1 - 2 tablet PO Q4H PRN PRN PRN Reason: Pain Score 4-10/10 Last Admin: 06/27/19 21:13 Dose: 2 tablet Documented by: Al Hydroxide/Mg Hydroxide (Mylanta Ii) 15 - 30 ml PO Q4H PRN PRN PRN Reason: INDIGESTION Albuterol Sulfate (Ventolin Aerosols) 2.5 mg INHALATION Q2H PRN PRN PRN Reason: dyspnea, wheezing Aspirin (Aspirin, Baby) 81 mg PO DAILY@0800 [facility] Last Admin: 06/28/19 08:22 Dose: 81 mg Documented by: Atorvastatin Calcium (Lipitor) 40 mg PO QHS [facility] Dextrose (D50w Syringe) 0 gm IV X1 PRN; Protocol PRN Reason: Hypoglycemia Glucagon () 1 mg IM .X1 PRN PRN Reason: Hypoglycemia Guaifenesin (Robitussin) 10 ml PO Q4H PRN PRN PRN Reason: COUGH Heparin Sodium (Porcine) (Heparin Na) 0 unit IV UD PRN; Protocol Hydralazine HCl (Apresoline Iv) 10 mg IV Q4H PRN PRN PRN Reason: SBP > 160 Last Admin: 06/27/19 23:14 Dose: 10 mg Documented by: Pantoprazole Sodium 40 mg/ (Sodium Chloride) 110 mls @ 330 mls/hr IV Q12 [facility] Last Infusion: 06/28/19 09:20 Dose: Infused Documented by: Potassium Chloride/Sodium Chloride () 1,000 mls @ 100 mls/hr IV .Q10H [facility] Last Admin: 06/28/19 16:26 Dose: 100 mls/hr Documented by: Sodium Chloride () 250 mls @ 15 mls/hr IV .[id number] PRN PRN Reason: Saline Flush Potassium Chloride () 10 meq in 100 mls @ 100 mls/hr IV BOLUS Q1H [facility] Stop: 06/28/19 17:59 Last Admin: 06/28/19 16:25 Dose: 100 mls/hr Documented by: Magnesium Hydroxide (Milk Of Magnesia) 30 ml PO DAILY PRN PRN Reason: Constipation Melatonin (Melatonin) 3 mg PO QHS PRN PRN PRN Reason: INSOMNIA Morphine Sulfate () 1 - 2 mg IV Q4H PRN PRN PRN Reason: Pain Score 1-10/10 Nitroglycerin (Nitrostat) 0.4 mg SUBLINGUAL Q5M PRN PRN Reason: CARDIAC/CHEST PAIN Nutritional Formula (Lactose Free) (Ensure Clear) 120 ml PO 4X/DAY [facility] Last Admin: 06/28/19 14:44 Dose: 120 ml Documented by: Ondansetron HCl (Zofran) 4 mg IV Q8H PRN PRN PRN Reason: NAUSEA/VOMITING Last Admin: 06/28/19 00:06 Dose: 4 mg Documented by: Promethazine HCl (Phenergan) 6.25 mg IV Q4H PRN PRN PRN Reason: NAUSEA/VOMITING Last Admin: 06/28/19 03:19 Dose: 6.25 mg Documented by: Sodium Chloride () 10 - 40 ml IV UD PRN PRN Reason: SALINE FLUSH Last Admin: 06/28/19 00:06 Dose: 20 ml Documented by: Trazodone HCl (Desyrel) 50 mg PO QHS [facility] Last Admin: 06/27/19 22:11 Dose: 50 mg Documented by: Assessment/Plan This patient was seen in conjunction with Ida BENNETT. I have independently interviewed and examined the patient and reviewed pertinent history, examination findings, laboratory and plan of management. I have reviewed the note and agree with the documented findings with the few additional points. In brief, patient is admitted for nausea, vomiting, dysphagia and weight loss with severe protein calorie malnutrition. Patient has history of esophageal stricture status post dilation 5 years. Patient had EGD which appears benign appearing esophageal stenosis about 35 cm from incisor and lower one third of esophagus, severe restenosis about 4 mm inner diameter. Stenosis could not be traversed. It was biopsied and Dr. Edmond advised transfer to tertiary care center where GI services available.. Also had left-sided chest pain which more seems musculoskeletal or pleuritic. Troponins are mildly elevated 0.082, maximum 0.012 and then 0.098. Discussed with the master baker. Seems more musculoskeletal/pleuritic perhaps after a fall. Patient is hemodynamically stable. Patient also had severe hypokalemia, potassium 1.8 which is replaced. Last potassium 2.8. Magnesium 2.4. Patient is awaiting [facility]. I have discussed my assessment with Ida BENNETT and orders have been reviewed.
--- NOTE | 2019-06-28 15:37 | CON.PCM_ITS ---
Problem List (1) Cardiac enzymes elevated Status: Acute Reason for Consult Date of Consultation: 06/28/19 Reason for Consultation: Elevated troponin. 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 Duodenal ulcers who presents to the [facility] on 06/27/19 with history of aggressively worsening dysphagia over the last several years more pronounced over the last 1 to 2 weeks with intractable nausea and emesis with any attempted oral intake with sharp abdominal stabbing discomfort particularly with onset of emesis with inability to maintain appropriate oral intake with fatigue, malaise and near syncopal events including the day prior to current presentation while attempting to get out of the shower with no loss of consciousness associated with recent 1 to 2-week history of rhinorrhea, congestion, postnasal drip as well as mildly productive cough of green sputum. Cardiology consult was requested because the troponin was in the indeterminate range. Troponin peaked at 0.11. Patient denies any chest pain, shortness of breath. Review of systems: All systems reviewed. All else is negative except that in the HPI. Past Medical History Allergies/Adverse Reactions: Allergies No Known Allergies Allergy (Verified 06/27/19 15:40) Home Medications: Ambulatory Orders Medication Instructions Recorded NK 06/27/19 Past Medical History (Chronic Problems): Chronic Problems History of CVA (cerebrovascular accident) (Chronic) HLD (hyperlipidemia) (Chronic) Gastroesophageal reflux disease (Chronic) Depression (Chronic) Benign essential HTN (Chronic) Surgical History: - - Thyroid cyst surgery, rib removal, tonsillectomy, prior esophageal dilations. 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 Paternal Family History: Family History (Last Updated 01/18/19 @ 04:11 by Musa Navarrete MD) Brother Alcoholism Father CVA (cerebral vascular accident) History Items: Stroke Lives: Roommate Smoking Status: Current every day smoker Tobacco Use: Cigarettes Alcohol: Occasional - Patient notes 1, 12 pack of beer will now last her approximately 3 weeks, previous heavy alcohol abuse reported in history, denies this currently. Drugs: None Objective: Vital Signs Temp Pulse Resp BP Pulse Ox 97.4 F L 82 16 145/106 H 100 06/28/19 14:47 06/28/19 14:47 06/28/19 14:47 06/28/19 14:47 06/28/19 14:47 Oxygen Flow Rate (L/min) 3 Oxygen Delivery Method Room Air Weight: 89 lb 4.595 oz Body Mass Index (BMI) 15.7 Orthostatic Vital Signs Start: 06/27/19 22:57 Freq: 0600 Status: Active Protocol: Activity Type Activity Date Activity User E-Sign Co-Sign Detail Recorded Client Recorded Date Recorded By Document 06/28/19 05:10 BS [id number] 06/28/19 05:11 BS 06/28/19 05:10 Orthostatic Vitals Standing -Blood Pressure (90/60-120/80) 138/116 H -Extremity Use Right Arm -Pulse Rate (60-100) 107 H Sitting -Blood Pressure (90/60-120/80) 164/116 H -Extremity Use Right Arm -Pulse Rate (60-100) 102 H Lying -Blood Pressure (90/60-120/80) 158/104 H -Extremity Use Right Arm -Pulse Rate (60-100) 95 Intake and Output for Last 24 Hours 06/26/19 06/27/19 06/28/19 23:59 23:59 23:59 Intake Total 1900 / 1900 2289.98 / 2289.98 Output Total 300 / 300 Balance 1600 / 1600 2289.98 / 2289.98 General: Awake, Alert, Oriented x 3 HEENT: Atraumatic Oral: Moist Mucosa Neck: Supple Lungs: Clear to auscultation Cardiovascular: Regular Rhythm Abdomen: Soft Extremities: No edema Skin: No Rashes Psych/Mental Status: Appropriate 06/27/19 16:10: Urine Color Yellow, Urine Clarity Cloudy, Urine pH 6.0, Ur Specific [place] 1.020, Urine Protein 30 H, Urine Glucose (UA) Normal, Urine Ketones 5 H, Urine Occult Blood 25 H, Urine Nitrite Negative, Urine Bilirubin 1 H, Urine Urobilinogen 1 H, Ur Leukocyte Esterase 500 H, Urine RBC 0 SEEN, Urine WBC 10-25 SEEN 06/27/19 16:25: WBC 11.9 H, RBC 6.13 H, Hgb 19.1 H*, Hct 53.7 H, MCV 87.6, MCH 31.2, MCHC 35.6, Plt Count 306, MPV 10.7, Immature Gran % (Auto) 0.500, Neut % (Auto) 64.9, Lymph % (Auto) 23.0, [place] % (Auto) 11.2 H, Eos % (Auto) 0.0, Baso % (Auto) 0.4, Absolute Neuts (auto) 7.7, Nucleated RBC % 0 06/27/19 16:25: Sodium Cancelled, Potassium Cancelled, Chloride Cancelled, Carbon Dioxide Cancelled, Anion Gap Cancelled, BUN Cancelled, Creatinine Cancelled, Est GFR (MDRD) Af Amer Cancelled, Est GFR (MDRD) Non-Af Cancelled, BUN/Creatinine Ratio Cancelled, Glucose Cancelled, Calcium Cancelled, Total Bilirubin Cancelled, Direct Bilirubin Cancelled, Troponin I Cancelled 06/27/19 16:25: Lactic Acid Cancelled 06/27/19 18:05: Lactic Acid 2.2 H 06/27/19 18:05: Sodium 136, Potassium 1.8 L*, Chloride 97 L, Carbon Dioxide 26.0, Anion Gap 13, BUN 35 H, Creatinine 2.34 H, Est GFR (MDRD) Af Amer 28 L, Est GFR (MDRD) Non-Af 23 L, BUN/Creatinine Ratio 15.0, Glucose 104, Calcium 8.5, Total Bilirubin 1.40 H, Direct Bilirubin 0.48 H, Troponin I 0.082 H 06/27/19 18:05: Magnesium 2.4 06/27/19 21:35: Troponin I 0.090 H 06/28/19 01:55: Sodium 140, Potassium 2.1 L*, Chloride 106, Carbon Dioxide 23.0, Anion Gap 11, BUN 34 H, Creatinine 2.05 H, Est GFR (MDRD) Af Amer 32 L, Est GFR (MDRD) Non-Af 26 L, BUN/Creatinine Ratio 16.6, Glucose 85, Calcium 7.8 L 06/28/19 01:55: Troponin I 0.112 H 06/28/19 04:45: WBC 10.4, RBC 5.28, Hgb 16.3 H, Hct 48.2 H, MCV 91.3, MCH 30.9, MCHC 33.8, Plt Count 232, MPV 11.0, Immature Gran % (Auto) 0.500, Neut % (Auto) 65.6, Lymph % (Auto) 22.9, [place] % (Auto) 10.3 H, Eos % (Auto) 0.2, Baso % (Auto) 0.5, Absolute Neuts (auto) 6.8, Nucleated RBC % 0 06/28/19 04:45: PT 16.0 H, INR 1.3, APTT 61.7 H 06/28/19 06:10: Sodium 140, Potassium 2.7 L*, Chloride 106, Carbon Dioxide 23.0, Anion Gap 11, BUN 33 H, Creatinine 1.99 H, Est GFR (MDRD) Af Amer 33 L, Est GFR (MDRD) Non-Af 27 L, BUN/Creatinine Ratio 16.6, Glucose 72 L, Calcium 8.1 L, Total Bilirubin 1.60 H 06/28/19 06:10: Troponin I 0.098 H 06/28/19 12:05: APTT 54.1 H 06/28/19 12:05: Potassium 2.8 L Rhythm: EKG: ECHO: Stress Test: Cardiac Cath: PCI: CT Surgery: Holter monitor: EPS: PPM: CXR: Chest CT Scan: Assessment/Plan 1. Elevated troponin: Patient has significant GI issues going on resulting in hydration. Her troponin elevation appears related to systemic issues and not directly cardiac at this time. No further work-up is required from a cardiac standpoint at this time. Her 2D echo was reviewed.
--- NOTE | 2019-06-28 17:12 | DS.PCM_ITS ---
<Ida Cardenas - Last Filed: 06/28/19 14:56> Discharge Date and Diagnosis Date of Admission: 06/27/19 Date of Discharge: 06/28/19 - Primary Discharge Diagnosis Active and Suspected Problems 1. Severe esophageal stenosis with worsening dysphagia, history of esophageal strictures status post dilation 5 years ago 2. Poor oral intake, nausea and vomiting-suspect secondary to 1. 3. Hypokalemia, secondary to #2 4. Acute kidney injury, secondary to #2 5. Lactic acidosis secondary to dehydration 6. Indeterminate troponin, suspect demand ischemia as result of acute presentation 7. Presyncope, secondary to orthostatic hypotension 8. History of CVA 9. Hypertension 10. Hyperlipidemia 11. Tobacco dependence 12. Chronic severe protein calorie malnutrition 13. History of GI bleed with gastric and duodenal ulcers - Secondary Discharge Diagnosis Chronic Problems History of CVA (cerebrovascular accident) (Chronic) HLD (hyperlipidemia) (Chronic) Gastroesophageal reflux disease (Chronic) Depression (Chronic) Benign essential HTN (Chronic) Hospital Course and Treatment Imaging Results: Diagnostic Data Brain CT 06/27/19 16:19 IMPRESSION: No acute intracranial abnormality. Electronically Signed: Luis Salazar, at 17:45 EST Tel , Service support , Chest X-Ray 06/27/19 16:20 IMPRESSION: COPD Electronically Signed: Eusebio Saldana MD at 16:43 EST , Service support , Dr. Edmond- General surgery Operations: None Procedures: 2-D Echocardiogram, EGD Summary of Care Provided: The patient is a 59 year old F admitted 06/27/2019 due to nausea, vomiting and poor oral intake. 1. Severe esophageal stenosis with worsening dysphagia, history of esophageal strictures status post dilation 5 years ago-General surgery, Dr. Cornell consulted during admission. Patient underwent EGD 06/28/2018 which showed 1 benign-appearing, intrinsic stenosis found to 35 cm from the incisors. Stenosis was noted to be severe and measured 4 mm. Lesion not amenable to dilation. Recommended transfer to tertiary facility where GI is available for dilation. Biopsy taken. Patient transferred to [facility] for further GI evaluation. On clear liquids. 2. Poor oral intake, nausea and vomiting-suspect secondary to 1. Improved. 3. Hypokalemia, secondary to #2-replaced per protocol, trend BMP. 4. Acute kidney injury, secondary to #2-improving with IV fluids. 5. Lactic acidosis secondary to dehydration 6. Indeterminate troponin, suspect demand ischemia as result of acute presentation-troponin did not trend. EKG without ST-T changes. Echocardiogram completed, report pending at discharge. 7. Presyncope, secondary to orthostatic hypotension-orthostatic vitals positive. Aggressive IV fluids. 8. 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 Not on home regimen. Recommend aspirin, statin upon discharge from acute care facility. 9. Hypertension-not on regimen, blood pressure stable. 10. Hyperlipidemia-not on regimen. 11. Tobacco dependence-encourage cessation. 12. Chronic severe protein calorie malnutrition-nutrition consult. 13. History of GI bleed with gastric and duodenal ulcers-IV PPI. Patient seen and examined prior to discharge. Physical assessment as noted below. Patient is stable for discharge with follow up recommendations as noted above. This patient was seen by JASON Rutherford under the supervision of Dr. Crane. - Physical Exam Vitals/I&O's: Vital Signs Temp Pulse Resp BP Pulse Ox 98.4 F 84 14 154/96 H 99 06/28/19 12:35 06/28/19 12:35 06/28/19 12:35 06/28/19 12:35 06/28/19 12:35 Oxygen Flow Rate (L/min) 3 Oxygen Delivery Method Room Air Weight: 89 lb 4.595 oz Body Mass Index (BMI) 15.7 Orthostatic Vital Signs Start: 06/27/19 22:57 Freq: 0600 Status: Active Protocol: Activity Type Activity Date Activity User E-Sign Co-Sign Detail Recorded Client Recorded Date Recorded By Document 06/28/19 05:10 BS [id number] 06/28/19 05:11 BS 06/28/19 05:10 Orthostatic Vitals Standing -Blood Pressure (90/60-120/80) 138/116 H -Extremity Use Right Arm -Pulse Rate (60-100) 107 H Sitting -Blood Pressure (90/60-120/80) 164/116 H -Extremity Use Right Arm -Pulse Rate (60-100) 102 H Lying -Blood Pressure (90/60-120/80) 158/104 H -Extremity Use Right Arm -Pulse Rate (60-100) 95 Intake and Output for Last 24 Hours 06/26/19 06/27/19 06/28/19 23:59 23:59 23:59 Intake Total 1900 / 1900 1460 / 1460 Output Total 300 / 300 Balance 1600 / 1600 1460 / 1460 General: Alert, Oriented x3, Cooperative HEENT: Atraumatic, PERRLA, EOMI, Normocephalic Oral: Dry Mucosa Neck: Supple, No JVD, Negative Carotid Bruits Lungs: Clear to auscultation, Diminished Cardiovascular: Regular rate, Regular Rhythm, Normal S1, Normal S2, No murmurs Abdomen: Bowel Sounds Present, Soft, Non Tender, Non-Distended Extremities: No clubbing, No cyanosis, No edema, Capillary Refill Less than 3 Seconds Skin: No rashes, No breakdown Musculoskeletal: No Tenderness to Palpation of Joints or Extremities Neurological: Cranial nerves II-XII grossly intact, Neuro grossly intact, - - Mild residual right-sided hemiplegia following prior CVA Psych/Mental Status: Agitated Microbiology Past 72 Hours 06/27/19 22:45 Mucosa - Nasopharyngeal Respiratory Panel (PCR) - Final Laboratory Results 06/27/19 16:10: Urine Color Yellow, Urine Clarity Cloudy, Urine pH 6.0, Ur Specific Se[place] 1.020, Urine Protein 30 H, Urine Glucose (UA) Normal, Urine Ketones 5 H, Urine Occult Blood 25 H, Urine Nitrite Negative, Urine Bilirubin 1 H, Urine Urobilinogen 1 H, Ur Leukocyte Esterase 500 H, Urine RBC 0 SEEN, Urine WBC 10-25 SEEN, Ur Squamous Epith Cells 10-25 SEEN, Urine Bacteria RARE, Hyaline Casts 0-5 SEEN, Urine Mucus 0 SEEN 06/27/19 16:25: WBC 11.9 H, RBC 6.13 H, Hgb 19.1 H*, Hct 53.7 H, MCV 87.6, MCH 31.2, MCHC 35.6, RDW Std Deviation 46.9 H, RDW Coeff of Richard 15.6 H, Plt Count 306, MPV 10.7, Immature Gran % (Auto) 0.500, Neut % (Auto) 64.9, Lymph % (Auto) 23.0, [place] % (Auto) 11.2 H, Eos % (Auto) 0.0, Baso % (Auto) 0.4, Absolute Neuts (auto) 7.7, Absolute Lymphs (auto) 2.74, Nucleated RBC % 0, Diff Path Review May foll 06/27/19 16:25: Sodium Cancelled, Potassium Cancelled, Chloride Cancelled, Carbon Dioxide Cancelled, Anion Gap Cancelled, BUN Cancelled, Creatinine Cancelled, Estim Creat Clear Calc Cancelled, Est GFR (MDRD) Af Amer Cancelled, Est GFR (MDRD) Non-Af Cancelled, BUN/Creatinine Ratio Cancelled, Glucose Cancelled, Calcium Cancelled, Total Bilirubin Cancelled, Direct Bilirubin Cancelled, AST Cancelled, ALT Cancelled, Alkaline Phosphatase Cancelled, Troponin I Cancelled, Total Protein Cancelled, Albumin Cancelled, Globulin Can celled 06/27/19 16:25: Lactic Acid Cancelled 06/27/19 18:05: Lactic Acid 2.2 H 06/27/19 18:05: Sodium 136, Potassium 1.8 L*, Chloride 97 L, Carbon Dioxide 26.0, Anion Gap 13, BUN 35 H, Creatinine 2.34 H, Estim Creat Clear Calc 15.93, Est GFR (MDRD) Af Amer 28 L, Est GFR (MDRD) Non-Af 23 L, BUN/Creatinine Ratio 15.0, Glucose 104, Calcium 8.5, Total Bilirubin 1.40 H, Direct Bilirubin 0.48 H, AST 20, ALT 15, Alkaline Phosphatase 83, Troponin I 0.082 H, Total Protein 6.4, Albumin 2.9 L, Globulin 3.5 06/27/19 18:05: Magnesium 2.4 06/27/19 21:35: Troponin I 0.090 H 06/28/19 01:55: Sodium 140, Potassium 2.1 L*, Chloride 106, Carbon Dioxide 23.0, Anion Gap 11, BUN 34 H, Creatinine 2.05 H, Estim Creat Clear Calc 19.13, Est GFR (MDRD) Af Amer 32 L, Est GFR (MDRD) Non-Af 26 L, BUN/Creatinine Ratio 16.6, Glucose 85, Calcium 7.8 L 06/28/19 01:55: Troponin I 0.112 H 06/28/19 04:45: WBC 10.4, RBC 5.28, Hgb 16.3 H, Hct 48.2 H, MCV 91.3, MCH 30.9, MCHC 33.8, RDW Std Deviation 50.1 H, RDW Coeff of Richard 15.1 H, Plt Count 232, MPV 11.0, Immature Gran % (Auto) 0.500, Neut % (Auto) 65.6, Lymph % (Auto) 22.9, [place] % (Auto) 10.3 H, Eos % (Auto) 0.2, Baso % (Auto) 0.5, Absolute Neuts (auto) 6.8, Absolute Lymphs (auto) 2.37, Nucleated RBC % 0 06/28/19 04:45: PT 16.0 H, INR 1.3, APTT 61.7 H 06/28/19 06:10: Sodium 140, Potassium 2.7 L*, Chloride 106, Carbon Dioxide 23.0, Anion Gap 11, BUN 33 H, Creatinine 1.99 H, Estim Creat Clear Calc 19.70, Est GFR (MDRD) Af Amer 33 L, Est GFR (MDRD) Non-Af 27 L, BUN/Creatinine Ratio 16.6, Glucose 72 L, Calcium 8.1 L, Total Bilirubin 1.60 H, AST 23, ALT 14, Alkaline Phosphatase 72, Total Protein 5.9 L, Albumin 2.9 L, Globulin 3.0, Albumin/G lobulin Ratio 1.0 06/28/19 06:10: Troponin I 0.098 H 06/28/19 12:05: APTT 54.1 H 06/28/19 12:05: Potassium 2.8 L Current Medications Acetaminophen (Tylenol) 650 mg PO Q6H PRN PRN PRN Reason: Non-cardiac pain (mod-severe) Hydrocodone Bitart/Acetaminophen (Elysian 5mg-325mg) 1 - 2 tablet PO Q4H PRN PRN PRN Reason: Pain Score 4-10/10 Last Admin: 06/27/19 21:13 Dose: 2 tablet Documented by: Al Hydroxide/Mg Hydroxide (Mylanta Ii) 15 - 30 ml PO Q4H PRN PRN PRN Reason: INDIGESTION Albuterol Sulfate (Ventolin Aerosols) 2.5 mg INHALATION Q2H PRN PRN PRN Reason: dyspnea, wheezing Aspirin (Aspirin, Baby) 81 mg PO DAILY@0800 [facility] Last Admin: 06/28/19 08:22 Dose: 81 mg Documented by: Atorvastatin Calcium (Lipitor) 40 mg PO QHS [facility] Dextrose (D50w Syringe) 0 gm IV X1 PRN; Protocol PRN Reason: Hypoglycemia Glucagon () 1 mg IM .X1 PRN PRN Reason: Hypoglycemia Guaifenesin (Robitussin) 10 ml PO Q4H PRN PRN PRN Reason: COUGH Heparin Sodium (Porcine) (Heparin Na) 0 unit IV UD PRN; Protocol Hydralazine HCl (Apresoline Iv) 10 mg IV Q4H PRN PRN PRN Reason: SBP > 160 Last Admin: 06/27/19 23:14 Dose: 10 mg Documented by: Pantoprazole Sodium 40 mg/ (Sodium Chloride) 110 mls @ 330 mls/hr IV Q12 [facility] Last Infusion: 06/28/19 09:20 Dose: Infused Documented by: Potassium Chloride/Sodium Chloride () 1,000 mls @ 100 mls/hr IV .Q10H [facility] Last Admin: 06/28/19 04:14 Dose: 100 mls/hr Documented by: Sodium Chloride () 250 mls @ 15 mls/hr IV .[id number] PRN PRN Reason: Saline Flush Potassium Chloride () 10 meq in 100 mls @ 100 mls/hr IV BOLUS Q1H [facility] Stop: 06/28/19 17:59 Magnesium Hydroxide (Milk Of Magnesia) 30 ml PO DAILY PRN PRN Reason: Constipation Melatonin (Melatonin) 3 mg PO QHS PRN PRN PRN Reason: INSOMNIA Morphine Sulfate () 1 - 2 mg IV Q4H PRN PRN PRN Reason: Pain Score 1-10/10 Nitroglycerin (Nitrostat) 0.4 mg SUBLINGUAL Q5M PRN PRN Reason: CARDIAC/CHEST PAIN Nutritional Formula (Lactose Free) (Ensure Clear) 120 ml PO 4X/DAY [facility] Last Admin: 06/28/19 08:37 Dose: Not Given Documented by: Ondansetron HCl (Zofran) 4 mg IV Q8H PRN PRN PRN Reason: NAUSEA/VOMITING Last Admin: 06/28/19 00:06 Dose: 4 mg Documented by: Promethazine HCl (Phenergan) 6.25 mg IV Q4H PRN PRN PRN Reason: NAUSEA/VOMITING Last Admin: 06/28/19 03:19 Dose: 6.25 mg Documented by: Sodium Chloride () 10 - 40 ml IV UD PRN PRN Reason: SALINE FLUSH Last Admin: 06/28/19 00:06 Dose: 20 ml Documented by: Trazodone HCl (Desyrel) 50 mg PO QHS [facility] Last Admin: 06/27/19 22:11 Dose: 50 mg Documented by: Home Medications: Medications to take at Discharge NK 06/27/19 Primary Care Physician: Care Physician,No Primary [Primary Care Provider] - Disposition: Acute care Hospital Minutes spent on discharge:: 40 Patient Condition:: Stable Medical Necessity - Tobacco Use Smoking Status: Current every day smoker Tobacco Use: Cigarettes Meaningful Use Info Meaningful Use Diagnoses (Choose all that apply): None applicable <[email or web address] - Last Filed: 06/28/19 17:14> Discharge Date and Diagnosis - Secondary Discharge Diagnosis Chronic Problems History of CVA (cerebrovascular accident) (Chronic) HLD (hyperlipidemia) (Chronic) Gastroesophageal reflux disease (Chronic) Depression (Chronic) Benign essential HTN (Chronic) Hospital Course and Treatment Summary of Care Provided: This patient was seen in conjunction with COSMETICS DEMONSTRATOR, Ida. I have independently interviewed and examined the patient and reviewed pertinent history, examination findings, laboratory and plan of management. I have reviewed the note and agree with the documented findings with the few additional points. In brief, patient is admitted for nausea, vomiting, dysphagia and weight loss with severe protein calorie malnutrition. Patient has history of esophageal stricture status post dilation 5 years. Patient had EGD which appears benign appearing esophageal stenosis about 35 cm from incisor and lower one third of esophagus, severe restenosis about 4 mm inner diameter. Stenosis could not be traversed. It was biopsied and Dr. Edmond advised transfer to tertiary care center where GI services available.. Also had left-sided chest pain which more seems musculoskeletal or pleuritic most likely from fall. Patient also has fatigue, malaise and near syncopal event resulting into fall. Troponins are mildly elevated 0.082, maximum 0.012 and then 0.098. Discussed with the hip hop artist. Seems more musculoskeletal/pleuritic perhaps after a fall. EKG shows normal sinus rhythm with nonspecific ST-T changes similar to previous EKGs. No hypokalemic changes in EKG. Patient is hemodynamically stable. Patient also had severe hypokalemia, potassium 1.8 which is replaced. Last potassium 2.8. Magnesium 2.4. Transfer call was made to [facility] and patient is accepted. [facility] I have discussed my assessment with COSMETICS DEMONSTRATORIda and orders have been reviewed. [] Subjective: Please see progress note of today. Subjective and objective findings described in detail. - Physical Exam Vitals/I&O's: Vital Signs Temp Pulse Resp BP Pulse Ox 97.4 F L 85 16 145/106 H 100 06/28/19 14:47 06/28/19 15:59 06/28/19 14:47 06/28/19 14:47 06/28/19 14:47 Oxygen Flow Rate (L/min) 3 Oxygen Delivery Method Room Air Weight: 89 lb 4.595 oz Body Mass Index (BMI) 15.7 Orthostatic Vital Signs Start: 06/27/19 22:57 Freq: 0600 Status: Active Protocol: Activity Type Activity Date Activity User E-Sign Co-Sign Detail Recorded Client Recorded Date Recorded By Document 06/28/19 05:10 BS [id number] 06/28/19 05:11 BS 06/28/19 05:10 Orthostatic Vitals Standing -Blood Pressure (90/60-120/80) 138/116 H -Extremity Use Right Arm -Pulse Rate (60-100) 107 H Sitting -Blood Pressure (90/60-120/80) 164/116 H -Extremity Use Right Arm -Pulse Rate (60-100) 102 H Lying -Blood Pressure (90/60-120/80) 158/104 H -Extremity Use Right Arm -Pulse Rate (60-100) 95 Intake and Output for Last 24 Hours 06/26/19 06/27/19 06/28/19 23:59 23:59 23:59 Intake Total 1900 / 1900 3389.98 / 3389.98 Output Total 300 / 300 Balance 1600 / 1600 3389.98 / 3389.98 Microbiology Past 72 Hours 06/27/19 22:45 Mucosa - Nasopharyngeal Respiratory Panel (PCR) - Final Laboratory Results 06/27/19 18:05: Lactic Acid 2.2 H 06/27/19 18:05: Sodium 136, Potassium 1.8 L*, Chloride 97 L, Carbon Dioxide 26.0, Anion Gap 13, BUN 35 H, Creatinine 2.34 H, Estim Creat Clear Calc 15.93, Est GFR (MDRD) Af Amer 28 L, Est GFR (MDRD) Non-Af 23 L, BUN/Creatinine Ratio 15.0, Glucose 104, Calcium 8.5, Total Bilirubin 1.40 H, Direct Bilirubin 0.48 H, AST 20, ALT 15, Alkaline Phosphatase 83, Troponin I 0.082 H, Total Protein 6.4, Albumin 2.9 L, Globulin 3.5 06/27/19 18:05: Magnesium 2.4 06/27/19 21:35: Troponin I 0.090 H 06/28/19 01:55: Sodium 140, Potassium 2.1 L*, Chloride 106, Carbon Dioxide 23.0, Anion Gap 11, BUN 34 H, Creatinine 2.05 H, Estim Creat Clear Calc 19.13, Est GFR (MDRD) Af Amer 32 L, Est GFR (MDRD) Non-Af 26 L, BUN/Creatinine Ratio 16.6, Glucose 85, Calcium 7.8 L 06/28/19 01:55: Troponin I 0.112 H 06/28/19 04:45: WBC 10.4, RBC 5.28, Hgb 16.3 H, Hct 48.2 H, MCV 91.3, MCH 30.9, MCHC 33.8, RDW Std Deviation 50.1 H, RDW Coeff of Richard 15.1 H, Plt Count 232, MPV 11.0, Immature Gran % (Auto) 0.500, Neut % (Auto) 65.6, Lymph % (Auto) 22.9, [place] % (Auto) 10.3 H, Eos % (Auto) 0.2, Baso % (Auto) 0.5, Absolute Neuts (auto) 6.8, Absolute Lymphs (auto) 2.37, Nucleated RBC % 0 06/28/19 04:45: PT 16.0 H, INR 1.3, APTT 61.7 H 06/28/19 06:10: Sodium 140, Potassium 2.7 L*, Chloride 106, Carbon Dioxide 23.0, Anion Gap 11, BUN 33 H, Creatinine 1.99 H, Estim Creat Clear Calc 19.70, Est G FR (MDRD) Af Amer 33 L, Est GFR (MDRD) Non-Af 27 L, BUN/Creatinine Ratio 16.6, Glucose 72 L, Calcium 8.1 L, Total Bilirubin 1.60 H, AST 23, ALT 14, Alkaline Phosphatase 72, Total Protein 5.9 L, Albumin 2.9 L, Globulin 3.0, Albumin/Globulin Ratio 1.0 06/28/19 06:10: Troponin I 0.098 H 06/28/19 12:05: APTT 54.1 H 06/28/19 12:05: Potassium 2.8 L Current Medications Acetaminophen (Tylenol) 650 mg PO Q6H PRN PRN PRN Reason: Non-cardiac pain (mod-severe) Hydrocodone Bitart/Acetaminophen (Elysian 5mg-325mg) 1 - 2 tablet PO Q4H PRN PRN PRN Reason: Pain Score 4-10/10 Last Admin: 06/27/19 21:13 Dose: 2 tablet Documented by: Al Hydroxide/Mg Hydroxide (Mylanta Ii) 15 - 30 ml PO Q4H PRN PRN PRN Reason: INDIGESTION Albuterol Sulfate (Ventolin Aerosols) 2.5 mg INHALATION Q2H PRN PRN PRN Reason: dyspnea, wheezing Aspirin (Aspirin, Baby) 81 mg PO DAILY@0800 [facility] Last Admin: 06/28/19 08:22 Dose: 81 mg Documented by: Atorvastatin Calcium (Lipitor) 40 mg PO QHS [facility] Dextrose (D50w Syringe) 0 gm IV X1 PRN; Protocol PRN Reason: Hypoglycemia Glucagon () 1 mg IM .X1 PRN PRN Reason: Hypoglycemia Guaifenesin (Robitussin) 10 ml PO Q4H PRN PRN PRN Reason: COUGH Heparin Sodium (Porcine) (Heparin Na) 0 unit IV UD PRN; Protocol Hydralazine HCl (Apresoline Iv) 10 mg IV Q4H PRN PRN PRN Reason: SBP > 160 Last Admin: 06/27/19 23:14 Dose: 10 mg Documented by: Pantoprazole Sodium 40 mg/ (Sodium Chloride) 110 mls @ 330 mls/hr IV Q12 [facility] Last Infusion: 06/28/19 09:20 Dose: Infused Documented by: Potassium Chloride/Sodium Chloride () 1,000 mls @ 100 mls/hr IV .Q10H [facility] Last Admin: 06/28/19 16:26 Dose: 100 mls/hr Documented by: Sodium Chloride () 250 mls @ 15 mls/hr IV .[id number] PRN PRN Reason: Saline Flush Potassium Chloride () 10 meq in 100 mls @ 100 mls/hr IV BOLUS Q1H [facility] Stop: 06/28/19 17:59 Last Admin: 06/28/19 16:25 Dose: 100 mls/hr Documented by: Magnesium Hydroxide (Milk Of Magnesia) 30 ml PO DAILY PRN PRN Reason: Constipation Melatonin (Melatonin) 3 mg PO QHS PRN PRN PRN Reason: INSOMNIA Morphine Sulfate () 1 - 2 mg IV Q4H PRN PRN PRN Reason: Pain Score 1-10/10 Nitroglycerin (Nitrostat) 0.4 mg SUBLINGUAL Q5M PRN PRN Reason: CARDIAC/CHEST PAIN Nutritional Formula (Lactose Free) (Ensure Clear) 120 ml PO 4X/DAY [facility] Last Admin: 06/28/19 14:44 Dose: 120 ml Documented by: Ondansetron HCl (Zofran) 4 mg IV Q8H PRN PRN PRN Reason: NAUSEA/VOMITING Last Admin: 06/28/19 00:06 Dose: 4 mg Documented by: Promethazine HCl (Phenergan) 6.25 mg IV Q4H PRN PRN PRN Reason: NAUSEA/VOMITING Last Admin: 06/28/19 03:19 Dose: 6.25 mg Documented by: Sodium Chloride () 10 - 40 ml IV UD PRN PRN Reason: SALINE FLUSH Last Admin: 06/28/19 00:06 Dose: 20 ml Documented by: Trazodone HCl (Desyrel) 50 mg PO QHS [facility] Last Admin: 06/27/19 22:11 Dose: 50 mg Documented by: Code Visit Inpatient E&M: [id number] Disch Hosp
[2019-06-28 18:04] LABS: Phosphorus 2.4 mg/dL (2.5-4.9)
[2019-06-28] MEDS: Atorvastatin Calcium 40 MG Tablet PO (21:46)
[2019-06-28] MEDS: traZODone 50 MG Tablet PO (21:46)
--- NOTE | 2019-06-28 23:10 | NURSING ---
César blood coordinator from [facility] called with bed [id number] Bed 1.
[2019-06-29 00:03] VITALS: BP 133/88; PULSE 98; RESP 18; TEMP 37; O2SAT 98
[2019-06-29 10:50] LABS: Pathologist Review Reviewed
== END 2019-06-29 00:14 | disposition short-term general hospital (02) | DRG 392 ==
LOC: ED 16:55 → PCU 19:56
PROVIDERS: Nurse Practitioner Family; Surgery; Admitting Provider Family Medicine; Emergency Provider Emergency Medicine; Referring Provider Family Medicine; Visit Provider Internal Medicine
PROC: 0DJ08ZZ Inspection of Upper Intestinal Tract, Via Natural or Artificial Opening Endoscopic (ICD-10-PCS; CPT 43235; principal; 2019-06-28 10:55)
DX: K22.2 Esophageal obstruction (principal); I69.351 Hemiplegia and hemiparesis following cerebral infarction affecting right dominant side; N17.9 Acute kidney failure, unspecified; E87.2 Acidosis; Z68.1 Body mass index [BMI] 19.9 or less, adult; I24.8 Other forms of acute ischemic heart disease; I69.311 Memory deficit following cerebral infarction; Z23 Encounter for immunization; E87.6 Hypokalemia; E86.0 Dehydration; I95.1 Orthostatic hypotension; R55 Syncope and collapse; I10 Essential (primary) hypertension; E78.5 Hyperlipidemia, unspecified; K21.9 Gastro-esophageal reflux disease without esophagitis; F32.9 Major depressive disorder, single episode, unspecified; F17.210 Nicotine dependence, cigarettes, uncomplicated; Z87.19 Personal history of other diseases of the digestive system
CPT/HCPCS: 36415; 70450; 71045; 80048; 80053; 80076; 81001; 83605; 83735; 84100; 84132; 84484; 85025; 85610; 85730; 87633; 88305; 88312; 92610; 93005; 93306; 97802; 99251; 99285; G0008; J7030; J7120; 90686; A4216; G0463; J2405

== ENCOUNTER 2019-10-29 11:37 | Inpatient (IN) | payer MEDICARE, MEDICAID, SELFPAY ==
[2019-06-28 10:39] VITALS: BMI 15.7
[2019-10-29] VITALS (10 sets, daily range): BP systolic 59–162; BP diastolic 30–118; PULSE 53–97; RESP 11–18; TEMP 36.4–37.1; O2SAT 96–100; BMI 14.6; BMI 14.3
--- NOTE | 2019-10-29 11:56 | ED.VISSUMM ---
- ER Visit Summary Date of Service: 10/29/19 Chief Complaint: Abdominal pain History of Present Illness: The patient is a 59 F who presents with abdominal pain, nausea, and vomiting that is been getting worse over the past 2 weeks. Patient states she feels like her esophagus collapsed and she is unable to keep anything down. Patient denies any hematemesis or coffee-ground emesis. Patient denies any diarrhea, melena, or hematochezia. Patient admits to generalized abdominal pain. Patient describes her pain as throbbing. Patient states nothing makes it better or worse. Patient admits to subjective chills. Patient also admits to some shortness of breath. Physical Examination: Vital signs are stable except for a low blood pressure 59/30. Patient is afebrile. Patient is in no acute distress. Oral mucosa is pink and dry. Neck is supple. Trachea is midline. There is no JVD. Heart was regular rate and rhythm. Lungs are clear and equal bilaterally. Abdomen is soft. There is diffuse tenderness. There is no rebound or guarding noted. Cranial nerves II through XII are intact. There are no focal motor or sensory deficits noted. Test Results: CBC shows a white blood cell count 13.6. Hemoglobin was 19.6. Basic metabolic profile showed a potassium of 2.0. There is a mild increase in BUN of 57, and creatinine of 2.96. Urinalysis showed leukocyte esterase of 100 with 10-25 white blood cells and 5-10 epithelial cells. There is 1+ bacteria. CT scan of the abdomen pelvis was obtained. There is no acute intra-abdominal abnormality. Emergency Department Course and Treatment: Patient was given IV fluids and her blood pressure improved. There was a significant delay in obtaining labs due to the patient being dehydrated and difficult obtaining IV. A femoral stick was performed by myself to obtain labs. The right inguinal area was prepped with ChloraPrep. An 18-gauge needle was used to puncture the right femoral vein. Patient tolerated procedure well. Patient was given IV potassium. Patient was unable to tolerate p.o. contrast for CT. Case was discussed with the hospitalist, Dr. Costa. She will admit the patient to her service. Patient understood and was agreeable with the plan. All questions were answered. Disposition: Admit to hospital Impression: 1. Dehydration 2. Hypokalemia This note was generated with [employer] software. It may contain incorrect words, spelling, and punctuation that were not noted in review of the chart prior to signing ED Disposition - Plan for ED Patient: Disposition: Acute Care Hospital [facility] Diagnosis: Dehydration, Hypokalemia Referrals: Care Physician,No Primary [Primary Care Provider] -
[2019-10-29] MEDS: 0.9% Normal Saline 1,000 ML 250 ML IV (12:05)
--- NOTE | 2019-10-29 12:05 | ED.RN ---
DUE TO PT IV ACCESS, STARTED NORMAL SALINE BOLUS AT 250ML/HR.
[2019-10-29] MEDS: Ondansetron 4 MG/2 ML Vial IV ×2 (12:13→18:44)
--- NOTE | 2019-10-29 12:30 | ED.RN ---
LAB WAS UNABLE TO GET BLOOD FROM THE PT, ANOTHER NURSE NOTIFIED DR. MOSCOSO.
--- NOTE | 2019-10-29 12:45 | EKG12_ITS ---
Test Reason : Blood Pressure : / mmHG Vent. Rate : 079 BPM Atrial Rate : 079 BPM P-R Int : 110 ms QRS Dur : 090 ms QT Int : 466 ms P-R-T Axes : 044 077 256 degrees QTc Int : 534 ms Sinus rhythm with short HI Left ventricular hypertrophy with repolarization abnormality Prolonged QT Abnormal ECG Confirmed by ELISSA PELLETIER ([id number]), brands editor HEBERT GARZON ([id number]) on 11/01/2019 7:50:38 AM Referred By: ROBEL Confirmed By:ELISSA PELLETIER
--- NOTE | 2019-10-29 13:37 | CT_ITS ---
STUDY: CT ABDOMEN AND PELVIS WITHOUT CONTRAST REASON FOR EXAM: Female, 59 years old. ABD PAIN AND WEAKNESS FROM NOT BEING ABLE TO EAT OR TAKE MEDS, SORE THROAT X 2 WKS, FEELS LIKE SHE DID AFTER GETTING HER ESOPHAGUS STRETCHED, HX- CVA, HTN, GERD, HLD RADIATION DOSAGE (If Supplied By Facility): CTDIvol = ( 3.47 ) mGy, DLP = ( 153.8 ) mGycm TECHNIQUE: Transaxial images were obtained from the dome of the diaphragm to the symphysis pubis without oral contrast, and without intravenous contrast. Sagittal and coronal images were reconstructed. Individualized dose optimization techniques were used for this CT. COMPARISON: Comparison is made with prior examination October 31, 2010. FINDINGS: Mild increased linear markings in the right middle lobe suggestive of developing or scarring. The visualized portions of the heart are within normal limits. Multiple small hypodensities scattered throughout the liver suggestive of multiple hepatic cysts. Normal gallbladder and extrahepatic biliary system. Normal spleen. Normal pancreas. Normal bilateral adrenal glands. Normal right kidney. Normal left kidney. Moderate sized hiatal hernia. Normal small intestine. Normal colon. The appendix is visualized and appears normal. There is diffuse atherosclerotic calcification of the abdominal aorta and its major visceral branches., without a demonstrated aneurysm. Normal inferior vena cava. Normal retroperitoneum. Normal urinary bladder. Normal abdominal wall. Mild degree of loss of height of the superior endplate of the L1 vertebrae. CT/Abdomen/Pelvis without Cont IMPRESSION: Moderate sized hiatal hernia. Stable multiple small hepatic cysts. Electronically Signed: Itz Lockwood, at 14:27 EDT , Service support ,
[2019-10-29 14:23] LABS: Absolute Lymphocyte Count 2.51 X10^3/uL (0.83-4.51); Absolute Neutrophil Count 9.7 X10^3/uL (2.0-7.7); Basophil# 0.05 X10^3/uL; Basophil% 0.4 % (0-1); Eosinophil# 0.01 X10^3/uL; Eosinophils% 0.1 % (0-5); Hematocrit 55.5 % (37-47); Lymphocyte # 2.51 X10^3/ul (4.0); Lymphocyte % 18.5 % (19-41); Mean Corp Hgb Conc 35.1 g/dL (32-36); Mean Corpuscular Hgb 30.5 pg (27.0-32.0); Mean Corpuscular Volume 86.7 fL (81-99); Mean Platelet Vol. 11.9 fl (6.2-12.0); Monocyte# 1.25 X10^3/uL; Monocyte% 9.2 % (0-10); NRBC Flagged by Analyzer 0 % (0-5); Neutrophil # 9.71 X10^3/uL (2.7-7.7); Neutrophil % 71.5 % (47-70); Platelet Count 186 K/mm3 (150-450); RBC Distribution Width SD 45.8 fl (35.1-43.9); White Blood Count 13.6 K/mm3 (4.4-11.0)
[2019-10-29 14:30] LABS: Color, Urine Yellow (Yellow); Glucose, Dipstick Normal (Normal); Ketone-Dipstick 5 mg/dl (Negative); Leukocyte Esterase-Dipstick 100 /ul (Negative); Mucous, Urine 0 SEEN /hpf (<or=2+); Nitrite-Dipstick Negative (Negative); Occult Blood-Urine 10 /ul (Negative); Protein-Dipstick 30 mg/dl (Negative); Urine Clarity Clear (Clear); Urine Urobilinogen 1 mg/dl (Normal)
[2019-10-29 14:41] LABS: Anion Gap 19 (5-15); BUN 57 mg/dL (7-18); BUN/Creat Ratio 19.3 RATIO (10-20); Calcium,Total 9.8 mg/dL (8.5-10.1); Chloride 91 mmol/L (98-107); Creatinine, Serum 2.96 mg/dL (0.55-1.02); EST Glomerular Filtration Rate 17 mL/min (>60); Est Glom Filt Rate - Afr Amer 21 mL/min (>60); Glucose 94 mg/dL (74-106); Lipase 151 U/L (73-393); Sodium Level 136 mmol/L (136-145)
[2019-10-29 14:58] LABS: Differential Indicated SCAN CRITERIA MET; Hemoglobin 19.5 g/dL (12.0-15.0)
[2019-10-29 15:05] LABS: Urine Bilirubin Dipstick 1 mg/dL (Negative)
[2019-10-29 15:06] LABS: Bacteria 1+ /hpf (None Seen); Hyaline Cast 0-5 SEEN /lpf (0-5); Red Blood Cells-Urine 0-5 SEEN /hpf (0-5); Squamous Epithelial Cells - UA 5-10 SEEN /hpf (5-10); White Blood Cells 10-25 SEEN /hpf (0-5)
--- NOTE | 2019-10-29 16:16 | HP.PCM_ITS ---
Problem List (1) Esophageal stricture Status: Suspected (2) Dysphagia Status: Acute Qualifiers: Dysphagia type: unspecified Qualified Code(s): R13.10 - Dysphagia, unspecified (3) DEANDRE (acute kidney injury) Status: Acute (4) Hypokalemia Status: Acute (5) Benign essential HTN Status: Chronic (6) Gastroesophageal reflux disease Status: Chronic Qualifiers: Esophagitis presence: esophagitis presence not specified Qualified Code(s): K21.9 - Gastro-esophageal reflux disease without esophagitis (7) HLD (hyperlipidemia) Status: Chronic Qualifiers: Hyperlipidemia type: unspecified Qualified Code(s): E78.5 - Hyperlipidemia, unspecified (8) History of CVA (cerebrovascular accident) Status: Chronic History of Present Illness Date of Admission: 10/29/19 Chief Complaint: Dysphagia, nausea, emesis The patient is a 59 y/o F w/ PMHx: 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 Duodenal ulcers who presents to the [facility] ED on 10/29/19 with most recent EGD 06/[address] Edmond with severe esophageal dilation noted at that time with an inner diameter of 4 mm with recommendation for follow-up with gastroenterology with inability to dilate at that time with biopsies obtained however per discussion with patient she likely did not follow- up but apparently had some intake following but again has worsened over the last 1 to 2 weeks with intractable nausea, emesis, upper epigastric and midsternal severe discomfort, stabbing, 10 out of 10 in severity with oral intake attempts with progressively worsening fatigue, malaise and weakness prompting eventual ED return. Work-up in the ED included T 97.6, heart rate 53, initial BP listed is 59/30 with improvement to 130/110 following 1 L bolus, respiratory rate 16, 96% on room air, CBC with WC 13.6, hemoglobin 19.5, platelet 186 with left shift, BMP with potassium 2.0, BUN/creatinine 57/2.96, urinalysis with evidence of dehydration with specific gravity 1.020, protein 30, glucose 5, ketone 10, negative nitrite, 100 leukocyte esterase, 10-25 WBCs however squamous epithelial cells 5-10 with 1+ urine bacteria but no urinary symptoms per patient discussion, urine culture pending per ED, CT abdomen pelvis without oral contrast with a moderate sized hiatal hernia and stable multiple small appearing hepatic cyst. In the ED patient ministered normal saline, Zofran, 20 mEq of potassium IV initiated. Discussed case and reviewed most recent EGD with Dr. Watt who will evaluate. Past Medical History Past Medical History (Chronic Problems): Chronic Problems History of CVA (cerebrovascular accident) (Chronic) HLD (hyperlipidemia) (Chronic) Gastroesophageal reflux disease (Chronic) Depression (Chronic) Benign essential HTN (Chronic) Allergies No Known Allergies Allergy (Verified 10/29/19 13:48) Home Medications: Ambulatory Orders Medication Instructions Recorded NK 06/27/19 Surgical History: - - Thyroid cyst surgery, rib removal, tonsillectomy, prior esophageal dilations. 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 Tobacco Use: Cigarettes Alcohol: Occasional - Occasional - Patient notes 1, 12 pack of beer will now last her approximately 3 weeks, previous heavy alcohol abuse reported in history, denies this currently. Drugs: None - *Family History Maternal Family History: Family History (Last Updated 01/18/19 @ 04:[address] Musa Navarrete MD) Brother Alcoholism Father CVA (cerebral vascular accident) History Items: - - Patient states she does not know any of her maternal family history as her mother when she was 5 years old but she denies any history of heart disease, diabetes, cancer, unclear etiology for . Paternal Family History: Family History (Last Updated 01/18/19 @ 04:[address] Musa Navarrete MD) Brother Alcoholism Father CVA (cerebral vascular accident) History Items: Stroke Review of Systems Constitutional: Reports: Anorexia, Malaise, Weakness, Fatigue. Denies: Chills, Fever, Weight Change HEENT: Denies: Head Aches, Sinus Congestion, Sinus Drainage Cardiovascular: Denies: Chest Pain, Palpitations Respiratory: Denies: Cough, Shortness of breath at rest, Sputum production Gastrointestinal: Reports: Abdominal Pain, Nausea, Vomiting Genitourinary: Denies: Dysuria Musculoskeletal: Reports: Back Pain, Joint Pain. Denies: Joint Tenderness Skin: Denies: Rash, Wounds Neurological: Reports: Focal weakness - Mild chronic R sided hemiplegia following remote CVA.. Denies: Numbness, Tingling Psychiatric: Reports: Anxiety, Depression. Denies: Homicidal Ideations, Suicidal Ideations Hematologic/ Lymphatic: Denies: Easy Bruising, Easy Bleeding VTE Information - Inpt Only VTE Present on Admission: No VTE Mechan Device Prophylaxis: SCD's VTE Pharm Prophylaxis ordered?: Yes Patient Problems: Active and Suspected Problems Dehydration (Acute) Hypokalemia (Acute) Subjective: Seated upright in the ED bed, holding emesis bag but no obvious distress otherwise. Objective: Physical Examination: General: awake, alert, oriented x 3 and cooperative, seated upright in ED bed, fatigued, no acute distress. Skin: normal color, turgor, no icterus, cyanosis. HEENT: AT/NC, EOMI, PERRLA, dry MM, no carotid bruits or JVD noted. Lungs: Diminished breath sounds, greater bilateral bases, moderate effort, no rales, ronchi or wheezing. Heart: Regular rate and regular rhythm; no gallop, rub audible, SM. Abdomen: soft, cachectic habitus, mild epigastric discomfort with palpation, no rebound or guarding, nondistended, mildly hyperactive bowel sounds, no HSM. Extremities: no cyanosis, clubbing, or edema. Neurological: patient awake, alert, oriented as noted; cognitive function baseline intact; pupils equally reactive to light and accomodation; cranial nerves II-XII grossly normal, moving all 4 extremities with chronic mild right- sided hemiplegia status post prior CVA, strength accordingly severely global decrease secondary to acute presentation Psychiatric: affect appears flat, fatigued, no acute evidence of depressive or anxiety feelings. - Physical Exam Vitals/I&O's: Vital Signs Temp Pulse Resp BP Pulse Ox 97.6 F L 85 12 130/110 H 100 10/29/19 11:39 10/29/19 16:10 10/29/19 16:10 10/29/19 16:10 10/29/19 16:10 Oxygen Delivery Method Room Air Weight: 84 lb 4 oz Body Mass Index (BMI) 14.6 Laboratory Results 10/29/19 13:50: WBC Cancelled, Corrected WBC Cancelled, RBC Cancelled, Hgb Cancelled, Hct Cancelled, MCV Cancelled, MCH Cancelled, MCHC Cancelled, RDW Std Deviation Cancelled, RDW Coeff of Richard Cancelled, Plt Count Cancelled, MPV Cancelled, Immature Gran % (Auto) Cancelled, Neut % (Auto) Cancelled, Lymph % (Auto) Cancelled, [place] % (Auto) Cancelled, Eos % (Auto) Cancelled, Baso % (Auto) Cancelled, Absolute Neuts (auto) Cancelled, Absolute Lymphs (auto) Cancelled, Total Counted Cancelled, Neutrophils % (Manual) Cancelled, Band Neutrophils % Cancelled, Lymphocytes % (Manual) Cancelled, Monocytes % (Manual) Cancelled, Eosinophils % (Manual) Cancelled, Basophils % (Manual) Cancelled, Metamyelocytes % Cancelled, Myelocytes % Cancelled, Promyelocytes % Cancelled, Blast Cells % Cancelled, Plasma Cell % (Manual) Cancelled, Other Cells % Cancelled, Nucleated RBC % Cancelled, Nucleated RBCs/100 WBC Cancelled, Differential Comment Cancelled, Diff Path Review Cancelled, Hypersegmented Neuts Cancelled, Atypical Lymphocytes Cancelled, Reactive Lymphocytes Cancelled, Smudge Cells Cancelled, Toxic Granulation Cancelled, Toxic Vacuolation Cancelled, Dohle Bodies Cancelled, Catarino Rods Cancelled, Platelet Estimate Cancelled, Plt Morphology Comment Cancelled, RBC Morphology Cancelled, Polychromasia Cancelled, Hypochromasia Cancelled, Poikilocytosis Cancelled, Basophilic Stippling Cancelled, Anisocytosis Cancelled, Microcytosis Cancelled, Macrocytosis Cancelled, Spherocytes Cancelled, Sickle Cells Cancelled, Target Cells Cancelled, Tear Drop Cells Cancelled, Ovalocytes Cancelled, Stomatocytes Cancelled, Galo-Glassmanor Bodies Cancelled, Prisca Cells Cancelled, Bite Cells Cancelled, Crenated Cell Cancelled, Acanthocytes (Spur) Cancelled, Rouleaux Cancelled, Schistocytes Cancelled 10/29/19 13:50: Sodium Cancelled, Potassium Cancelled, Chloride Cancelled, Carbon Dioxide Cancelled, Anion Gap Cancelled, BUN Cancelled, Creatinine Ca ncelled, Estim Creat Clear Calc Cancelled, Est GFR (MDRD) Af Amer Cancelled, Est GFR (MDRD) Non-Af Cancelled, BUN/Creatinine Ratio Cancelled, Glucose Cancelled, Calcium Cancelled, Total Bilirubin Cancelled, AST Cancelled, ALT Cancelled, Alkaline Phosphatase Cancelled, Total Protein Cancelled, Albumin Cancelled, Globulin Cancelled, Albumin/Globulin Ratio Cancelled, Lipase Cancelled 10/29/19 14:15: WBC 13.6 H, RBC 6.40 H, Hgb 19.5 H*, Hct 55.5 H, MCV 86.7, MCH 30.5, MCHC 35.1, RDW Std Deviation 45.8 H, RDW Coeff of Richard 15.0 H, Plt Count 186, MPV 11.9, Immature Gran % (Auto) 0.300, Neut % (Auto) 71.5 H, Lymph % (Auto) 18.5 L, Tom [place] % (Auto) 9.2, Eos % (Auto) 0.1, Baso % (Auto) 0.4, Absolute Neuts (auto) 9.7 H, Absolute Lymphs (auto) 2.51, Nucleated RBC % 0, Diff Path R evdecember10/29/19 14:15: Sodium 136, Potassium 2.0 L*, Chloride 91 L, Carbon Dioxide 26.0, Anion Gap 19 H, BUN 57 H, Creatinine 2.96 H, Estim Creat Clear Calc 12.50, Est GFR (MDRD) Af Amer 21 L, Est GFR (MDRD) Non-Af 17 L, BUN/Creatinine Ratio 19.3, Glucose 94, Calcium 9.8, Total Bilirubin Cancelled, AST Cancelled, ALT Cancelled, Alkaline Phosphatase Cancelled, Total Protein Cancelled, Albumin Cancelled, Globulin Cancelled, Albumin/Globulin Ratio Cancelled, Lipase 151 10/29/19 14:20: Urine Color Yellow, Urine Clarity Clear, Urine pH 6.0, Ur Specific Arpin 1.020, Urine Protein 30 H, Urine Glucose (UA) Normal, Urine Ketones 5 H, Urine Occult Blood 10 H, Urine Nitrite Negative, Urine Bilirubin 1 H, Urine Urobilinogen 1 H, Ur Leukocyte Esterase 100 H, Urine RBC 0-5 SEEN, Urine WBC 10-25 SEEN, Ur Squamous Epith Cells 5-10 SEEN, Urine Bacteria 1+, Hyaline Casts 0-5 SEEN, Urine Mucus 0 SEEN Current Medications Potassium Chloride () 10 meq in 100 mls @ 100 mls/hr IV BOLUS Q1H LUIS Stop: 10/29/19 18:14 Assessment/Plan All Active Problems Dehydration (Acute) Acute narcotic withdrawal (Acute) EtOH dependence (Acute) Alcohol withdrawal (Acute) Coffee ground emesis (Acute) Dysphagia (Acute) Hypokalemia (Acute) DEANDRE (acute kidney injury) (Acute) Lactic acid acidosis (Acute) Cardiac enzymes elevated (Acute) The patient is a 59 y/o F w/ PMHx: 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 Duodenal ulcers who presents to the [facility] ED on 10/29/19 with 1-2 weeks with intractable nausea, emesis, upper epigastric and midsternal severe discomfort, stabbing, 10 out of 10 in severity with oral intake attempts with progressively worsening fatigue, malaise. 1. Worsening dysphagia with concurrent intractable N/V with known severe esophageal stricture: We will admit to medical surgical floor with telemetry given electrolyte severity, continue hydration, continue electrolyte repletion with additional testing, per discussion with general surgery will allow clear liquids and Ensure pending their evaluation, will maintain on IV PPI given history of also gastric and duodenal questionable ulcers and acute presentation concurrently, PRN pain regimen, PRN nausea regimen, will consult PT/OT/Speech/case management for discharge planning. 2. Hypokalemia: Admission potassium 2.0, 20 mEq IV ordered per the ED, will attempt an additional 40 mill equivalent liquid however if unable will transition to additional IV supplementation, repeat BMP this evening and in a.m., pending magnesium. 3. Acute kidney injury: Secondary to GI losses. Admission BUN/Cr 35/2.34, prior baseline creatinine noted to be 0.5-0.8, has had increases with DEANDRE during admissions noted prior however, will continue to aggressively hydrate, hold nephrotoxic medications and repeat chemistry this evening given lecture light disturbances and in a.m. If not improving consider FeNa, renal consultation. 4. Hx ? Prior CVA: Patient w/ mild residual R sided hemiplegia and memory impairment per her report, not on regimen even though added during prior admission given history. Will attempt restart asa, change to CO if needed, statin, add BP regimen if needed. 5. Hypertension: Not on regimen, consider oral addition once clarify intake abilities, PRN IV hydralazine in interim. 6. Hyperlipidemia: Not on regimen, add statin if able to tolerate. 7. Tobacco Abuse: Encouraged cessation, inpatient consultation per RT, NR if desired. 8. Chronic severe protein-calorie malnutrition: Evidenced per BMI, habitus, obvious muscle and fat loss, nutrition consulted. 9. Hx GI bleed w/ Gastric and ? Duodenal ulcers: Possibly contributing to acute presentation, maintain on IV PPI as noted. 10. DVT prophylaxis: SCDs, heparin. Inpatient E&M: 15687 Init Hosp L3
[2019-10-29] MEDS: Potassium Chloride 10mEq/100mL 10 MEQ/100 ML IV.SOLN. 100 MEQ IV BOLUS ×2 (16:34→17:45)
--- NOTE | 2019-10-29 17:01 | ED.RN ---
attempted to call POA and notify of admission. no answer. call back number was left for POA to call us to get information.
[2019-10-29] MEDS: 0.9% Normal Saline 1,000 ML 150 ML IV (18:31)
[2019-10-29] MEDS: BENZOCAINE/MENTHOL 1 LOZENGE MUCOUS MEM (18:44)
[2019-10-29] MEDS: hydrALAZINE 20 MG/ML Vial 10 MG IV (20:48)
[2019-10-29] MEDS: proCHLORPERazine 10 MG/2 ML Vial 5 MG IV (20:51)
[2019-10-29] MEDS: 0.9% Saline Lock 10 ML Syringe IV (20:51)
[2019-10-29] MEDS: DiphenhydrAMINE 50 MG/ML Syringe 25 MG IV (21:59)
[2019-10-29] MEDS: Heparin Injection (Vial) 5,000 UNIT/ML VIAL 5000 UNIT SC (22:03)
[2019-10-30] VITALS (17 sets, daily range): BP systolic 103–150; BP diastolic 70–96; PULSE 69–97; RESP 16–18; TEMP 36.1–37.1; O2SAT 97–100; BMI 14.5
[2019-10-30 06:47] LABS: Absolute Lymphocyte Count 2.13 X10^3/uL (0.83-4.51); Absolute Neutrophil Count 7.9 X10^3/uL (2.0-7.7); Basophil# 0.06 X10^3/uL; Basophil% 0.5 % (0-1); Eosinophil# 0.03 X10^3/uL; Eosinophils% 0.3 % (0-5); Hematocrit 41.4 % (37-47); Hemoglobin 14.4 g/dL (12.0-15.0); Lymphocyte # 2.13 X10^3/ul (4.0); Mean Corp Hgb Conc 34.8 g/dL (32-36); Mean Corpuscular Hgb 31.4 pg (27.0-32.0); Mean Corpuscular Volume 90.2 fL (81-99); Mean Platelet Vol. 11.7 fl (6.2-12.0); Monocyte# 1.11 X10^3/uL; Monocyte% 9.9 % (0-10); NRBC Flagged by Analyzer 0 % (0-5); Neutrophil # 7.85 X10^3/uL (2.7-7.7); Neutrophil % 69.9 % (47-70); Platelet Count 167 K/mm3 (150-450); RBC Distribution Width CV 14.6 % (11.6-14.6); RBC Distribution Width SD 47.9 fl (35.1-43.9); Red Blood Count 4.59 M/mm3 (4.2-5.4); White Blood Count 11.2 K/mm3 (4.4-11.0)
[2019-10-30 07:29] LABS: Anion Gap 15 (5-15); BUN 47 mg/dL (7-18); BUN/Creat Ratio 20.8 RATIO (10-20); Calcium,Total 7.9 mg/dL (8.5-10.1); Chloride 104 mmol/L (98-107); Creatinine, Serum 2.26 mg/dL (0.55-1.02); EST Glomerular Filtration Rate 24 mL/min (>60); Est Glom Filt Rate - Afr Amer 29 mL/min (>60); Estimated Creatinine Clearance 15.91 ml/min; Glucose 74 mg/dL (74-106); Magnesium 2.3 mg/dL (1.6-2.6); Phosphorus 3.5 mg/dL (2.5-4.9); Potassium 2.2 mmol/L (3.5-5.1); Sodium Level 141 mmol/L (136-145)
--- NOTE | 2019-10-30 07:33 | US_ITS ---
STUDY: ABDOMINAL ULTRASOUND - RIGHT UPPER QUADRANT REASON FOR VISIT: Female, 59 years old RUQ PAIN VOMITING NOT DUE TO NAUSEA TECHNIQUE: Ultrasound evaluation of the right upper quadrant was performed with real-time and static moon-scale imaging. TECHNICAL QUALITY: Adequate. COMPARISON: Comparison is made with prior examination dated October 28, 2010. FINDINGS: Liver: The liver measures 13.9 cm. There is a coarse heterogeneous echogenicity of the liver. The bile ducts are within normal limits. There is hepatic color flow. The direction of portal flow is hepatopetal. There is a 2 cm x 1.6 cm x 1.9 cm cyst in the left lobe of the liver. This is unchanged. There is a 9 mm x 10 mm x 14 mm cyst with septation in the region of the dome of the right lobe of the liver. Gallbladder: Normal distended gallbladder. The gallbladder wall measures 1.7 mm. There is a negative sonographic Long''s sign. There is no pericholecystic fluid. There are no gallstones. A small amount of sludge is seen within the gallbladder lumen. Common Bile Duct (C.B.D.): The common bile duct measures 6.2 mm. Pancreas: Normal size of the head, body and tail of the pancreas. There is normal echogenicity of the pancreas. There is no demonstrated pancreatic mass or cyst. Right Kidney: Normal size of the right kidney. The right kidney measures 10 cm x 5.6 cm x 4.6 cm. Normal renal cortex. The right cortex measures 1.1 cm. There is no demonstrated renal mass or cyst. There is no right hydronephrosis. US/Gallbladder IMPRESSION: Heterogeneous echotexture of the liver. Hepatic cysts. Electronically Signed: Itz Lockwood, at 15:27 EDT , Service support ,
--- NOTE | 2019-10-30 07:54 | PCM.CONS.GEN ---
Problem List (1) Nausea & vomiting Status: Acute Qualifiers: Vomiting type: unspecified Vomiting Intractability: unspecified Qualified Code(s): R11.2 - Nausea with vomiting, unspecified (2) Abdominal pain Status: Acute Qualifiers: Abdominal location: epigastric Qualified Code(s): R10.13 - Epigastric pain (3) Esophageal stricture Status: Suspected Reason for Consult Date of Consultation: 10/30/19 History of Present Illness: The patient is a 59 year old F who says she is been having 2 weeks of nausea and vomiting and abdominal pain. She believes her esophageal stricture is causing this. She had an EGD which showed a severe stricture and she had this dilated in [place]. She is also complaining of abdominal pain. Past Medical History Past Medical History (Chronic Problems): Chronic Problems History of CVA (cerebrovascular accident) (Chronic) HLD (hyperlipidemia) (Chronic) Gastroesophageal reflux disease (Chronic) Depression (Chronic) Benign essential HTN (Chronic) Allergies No Known Allergies Allergy (Verified 10/29/19 13:48) Home Medications: Ambulatory Orders Medication Instructions Recorded NK 06/27/19 Surgical History: - - Thyroid cyst surgery, rib removal, tonsillectomy, prior esophageal dilations. 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 Drugs: None - *Family History Maternal Family History: Family History (Last Updated 01/18/19 @ 04:[address] Musa Navarrete MD) Brother Alcoholism Father CVA (cerebral vascular accident) History Items: - - Patient states she does not know any of her maternal family history as her mother when she was 5 years old but she denies any history of heart disease, diabetes, cancer, unclear etiology for . Paternal Family History: Family History (Last Updated 01/18/19 @ 04:[address] Musa Navarrete MD) Brother Alcoholism Father CVA (cerebral vascular accident) History Items: Stroke Review of Systems Constitutional: Reports: Anorexia. Denies: Fever HEENT: Reports: Difficulty Swallowing Cardiovascular: Denies: Chest Pain Respiratory: Denies: Cough, Shortness of Breath Gastrointestinal: Reports: Abdominal Pain, Nausea, Vomiting Neurological: Denies: Balance problems Hematologic/ Lymphatic: Denies: Anemia Patient Problems: Active and Suspected Problems Dehydration (Acute) Nausea & vomiting (Acute) Abdominal pain (Acute) Hypokalemia (Acute) - Physical Exam Vitals/I&O's: Vital Signs Temp Pulse Resp BP Pulse Ox 98.8 F 82 16 127/94 H 97 10/30/19 03:40 10/30/19 07:07 10/30/19 03:40 10/30/19 03:40 10/30/19 03:40 Oxygen Delivery Method Room Air Weight: 81 lb 14.4 oz Body Mass Index (BMI) 14.3 Intake and Output for Last 24 Hours 10/28/19 10/29/19 10/30/19 23:59 23:59 23:59 Intake Total 1996. / 1077.08 / 1077.08 Output Total 750 / 750 Balance 1996.5 / 1397.5 327.08 / 327.08 General: Alert, Oriented x3 Oral: Moist Mucosa Neck: No JVD Lungs: Normal air movement Cardiovascular: Regular rate, Regular Rhythm Abdomen: Soft, Non-Distended, Tender - Positive right upper quadrant and epigastric tenderness. Positive Long sign. Extremities: No clubbing Skin: No rashes Neurological: Cranial nerves II-XII grossly intact Psych/Mental Status: Normal Affect Laboratory Results 10/29/19 13:50: WBC Cancelled, Corrected WBC Cancelled, RBC Cancelled, Hgb Cancelled, Hct Cancelled, MCV Cancelled, MCH Cancelled, MCHC Cancelled, RDW Std Deviation Cancelled, RDW Coeff of Richard Cancelled, Plt Count Cancelled, MPV Cancelled, Immature Gran % (Auto) Cancelled, Neut % (Auto) Cancelled, Lymph % (Auto) Cancelled, Callow[place] % (Auto) Cancelled, Eos % (Auto) Cancelled, Baso % (Auto) Cancelled, Absolute Neuts (auto) Cancelled, Absolute Lymphs (auto) Cancelled, Total Counted Cancelled, Neutrophils % (Manual) Cancelled, Band Neutrophils % Cancelled, Lymphocytes % (Manual) Cancelled, Monocytes % (Manual) Cancelled, Eosinophils % (Manual) Cancelled, Basophils % (Manual) Cancelled, Metamyelocytes % Cancelled, Myelocytes % Cancelled, Promyelocytes % Cancelled, Blast Cells % Cancelled, Plasma Cell % (Manual) Cancelled, Other Cells % Cancelled, Nucleated RBC % Cancelled, Nucleated RBCs/100 WBC Cancelled, Differential Comment Cancelled, Diff Path Review Cancelled, Hypersegmented Neuts Cancelled, Atypical Lymphocytes Cancelled, Reactive Lymphocytes Cancelled, Smudge Cells Cancelled, Toxic Granulation Cancelled, Toxic Vacuolation Cancelled, Dohle Bodies Cancelled, Catarino Rods Cancelled, Platelet Estimate Cancelled, Plt Morphology Comment Cancelled, RBC Morphology Cancelled, Polychromasia Cancelled, Hypochromasia Cancelled, Poikilocytosis Cancelled, Basophilic Stippling Cancelled, Anisocytosis Cancelled, Microcytosis Cancelled, Macrocytosis Cancelled, Spherocytes Cancelled, Sickle Cells Cancelled, Target Cells Cancelled, Tear Drop Cells Cancelled, Ovalocytes Cancelled, Stomatocytes Cancelled, [place] Bodies Cancelled, Prisca Cells Cancelled, Bite Cells Cancelled, Crenated Cell Cancelled, Acanthocytes (Spur) Cancelled, Rouleaux Cancelled, Schistocytes Cancelled 10/29/19 13:50: Sodium Cancelled, Potassium Cancelled, Chloride Cancelled, Carbon Dioxide Cancelled, Anion Gap Cancelled, BUN Cancelled, Creatinine Cancelled, Estim Creat Clear Calc Cancelled, Est GFR (MDRD) Af Amer Cancelled, Est GFR (MDRD) Non-Af Cancelled, BUN/Creatinine Ratio Cancelled, Glucose Cancelled, Calcium Cancelled, Total Bilirubin Cancelled, AST Cancelled, ALT Cancelled, Alkaline Phosphatase Cancelled, Total Protein Cancelled, Albumin Cancelled, Globulin Cancelled, Albumin/Globulin Ratio Cancelled, Lipase Cancelled 10/29/19 14:15: WBC 13.6 H, RBC 6.40 H, Hgb 19.5 H*, Hct 55.5 H, MCV 86.7, MCH 30.5, MCHC 35.1, RDW Std Deviation 45.8 H, RDW Coeff of Richard 15.0 H, Plt Count 186, MPV 11.9, Immature Gran % (Auto) 0.300, Neut % (Auto) 71.5 H, Lymph % (Auto) 18.5 L, Calloway % (Auto) 9.2, Eos % (Auto) 0.1, Baso % (Auto) 0.4, Absolute Neuts (auto) 9.7 H, Absolute Lymphs (auto) 2.51, Nucleated RBC % 0, Diff Path Review December10/29/19 14:15: Sodium 136, Potassium 2.0 L*, Chloride 91 L, Carbon Dioxide 26.0, Anion Gap 19 H, BUN 57 H, Creatinine 2.96 H, Estim Creat Clear Calc 12.50, Est GFR (MDRD) Af Amer 21 L, Est GFR (MDRD) Non-Af 17 L, BUN/Creatinine Ratio 19.3, Glucose 94, Calcium 9.8, Total Bilirubin Cancelled, AST Cancelled, ALT Cancelled, Alkaline Phosphatase Cancelled, Total Protein Cancelled, Albumin Cancelled, Globulin Cancelled, Albumin/Globulin Ratio Cancelled, Lipase 151 10/29/19 14:20: Urine Color Yellow, Urine Clarity Clear, Urine pH 6.0, Ur Specific [employer] 1.020, Urine Protein 30 H, Urine Glucose (UA) Normal, Urine Ketones 5 H, Urine Occult Blood 10 H, Urine Nitrite Negative, Urine Bilirubin 1 H, Urine Urobilinogen 1 H, Ur Leukocyte Esterase 100 H, Urine RBC 0-5 SEEN, Urine WBC 10-25 SEEN, Ur Squamous Epith Cells 5-10 SEEN, Urine Bacteria 1+, Hyaline Casts 0-5 SEEN, Urine Mucus 0 SEEN 10/30/19 05:55: Phosphorus Cancelled, Magnesium Cancelled 10/30/19 06:10: WBC 11.2 H, RBC 4.59, Hgb 14.4, Hct 41.4, MCV 90.2, MCH 31.4, MCHC 34.8, RDW Std Deviation 47.9 H, RDW Coeff of Richard 14.6, Plt Count 167, MPV 11.7, Immature Gran % (Auto) 0.400, Neut % (Auto) 69.9, Lymph % (Auto) 19.0, Calloway % (Auto) 9.9, Eos % (Auto) 0.3, Baso % (Auto) 0.5, Absolute Neuts (auto) 7.9 H, Absolute Lymphs (auto) 2.13, Nucleated RBC % 0 10/30/19 06:10: Sodium 141, Potassium 2.2 L*, Chloride 104, Carbon Dioxide 22.0, Anion Gap 15, BUN 47 H, Creatinine 2.26 H, Estim Creat Clear Calc 15.91, Est GFR (MDRD) Af Amer 29 L, Est GFR (MDRD) Non-Af 24 L, BUN/Creatinine Ratio 20.8 H, Glucose 74, Calcium 7.9 L, Phosphorus 3.5, Magnesium 2.3 Current Medications Acetaminophen (Tylenol) 650 mg PO Q6H PRN PRN PRN Reason: Pain Score 1-10/Temp > 100.7 F Al Hydroxide/Mg Hydroxide (Mylanta Ii) 30 ml PO Q6H PRN PRN PRN Reason: Gastric Burning Albuterol Sulfate (Ventolin Aerosols) 2.5 mg INHALATION Q2H PRN PRN PRN Reason: Shortness of Breath/Wheezing Aspirin (Aspirin, Baby) 81 mg PO DAILY@0800 [facility] Atorvastatin Calcium (Lipitor) 20 mg PO QHS [facility] Last Admin: 10/29/19 22:02 Dose: Not Given Documented by: Dextrose (D50w Syringe) 0 gm IV X1 PRN; Protocol PRN Reason: Hypoglycemia Glucagon () 1 mg IM .X1 PRN PRN Reason: Hypoglycemia Guaifenesin (Robitussin) 20 ml PO Q4H PRN PRN PRN Reason: COUGH Heparin Sodium (Porcine) (Heparin Na) 5,000 unit SC Q12 [facility] Last Admin: 10/29/19 22:03 Dose: 5,000 unit Documented by: Hydralazine HCl (Apresoline Iv) 10 mg IV Q4H PRN PRN PRN Reason: SBP > 160 Last Admin: 10/29/19 20:48 Dose: 10 mg Documented by: Pantoprazole Sodium 40 mg/ (Sodium Chloride) 110 mls @ 330 mls/hr IV Q12 [facility] Last Infusion: 10/29/19 18:54 Dose: Infused Documented by: Potassium Chloride/Sodium Chloride () 1,000 mls @ 125 mls/hr IV .Q8H [facility] Last Admin: 10/30/19 06:54 Dose: 125 mls/hr Documented by: Magnesium Hydroxide (Milk Of Magnesia) 30 ml PO DAILY PRN PRN PRN Reason: Constipation Morphine Sulfate () 2 mg IV Q3H PRN PRN PRN Reason: Pain Score 6-10/10 Nicotine (Nicoderm Cq (Pbkc)) 7 mg TRANSDERM. DAILY [facility] Last Admin: 10/29/19 18:31 Dose: 7 mg Documented by: Nutritional Formula (Lactose Free) (Ensure Clear) 120 ml PO 4X/DAY LUIS Last Admin: 10/29/19 22:01 Dose: Not Given Documented by: Ondansetron HCl (Zofran) 4 mg IV Q8H PRN PRN PRN Reason: NAUSEA/VOMITING Last Admin: 10/29/19 18:44 Dose: 4 mg Documented by: Oxycodone HCl (Oxyir) 5 mg PO Q4H PRN PRN PRN Reason: Pain Score 4-5/10 Prochlorperazine Edisylate (Compazine Iv) 5 mg IV Q4H PRN PRN PRN Reason: Breakthrough nausea/vomiting Last Admin: 10/29/19 20:51 Dose: 5 mg Documented by: Psyllium Hydrophilic Mucilloid (Metamucil) 1 packet PO DAILY PRN PRN PRN Reason: Constipation Senna/Docusate Sodium (Senokot-S, Bethany-Colace) 2 tablet PO BID PRN PRN PRN Reason: Constipation Sodium Chloride () 10 - 40 ml IV UD PRN PRN Reason: SALINE FLUSH Last Admin: 10/29/19 20:51 Dose: 10 ml Documented by: Throat Lozenges (Cepacol Sore Throat Lozenge) 1 lozenge MUCOUS MEM Q2H PRN PRN PRN Reason: SORE THROAT Last Admin: 10/29/19 18:44 Dose: 1 lozenge Documented by: Trazodone HCl (Desyrel) 50 mg PO QHS PRN PRN Reason: INSOMNIA Assessment/Plan All Active Problems Dehydration (Acute) Nausea & vomiting (Acute) Abdominal pain (Acute) Acute narcotic withdrawal (Acute) EtOH dependence (Acute) Alcohol withdrawal (Acute) Coffee ground emesis (Acute) Dysphagia (Acute) Hypokalemia (Acute) DEANDRE (acute kidney injury) (Acute) Lactic acid acidosis (Acute) Cardiac enzymes elevated (Acute) 59-year-old female with abdominal pain and nausea and vomiting 1. The patient is having nausea and vomiting for 2 weeks. She is having positive abdominal pain. She had a positive Long sign for me and she is having right upper quadrant and epigastric pain. She has a history of gallstones and I will order an ultrasound to make sure she is not having acute cholecystitis as she did have an elevated white count on admission. 2. The patient was also severely dehydrated and reports that she is not able to control her saliva secretions. She is spitting into a bag. I am unsure that the esophageal stricture is the cause of her abdominal pain and vomiting. If the ultrasound is normal then she may need EGD with dilation versus a PEG tube for hydration and feeding. Be Watt MD Pager: [facility] [address] [place] [address], [address] [place] [address] Office:
[2019-10-30] MEDS: proCHLORPERazine 10 MG/2 ML Vial 5 MG IV (08:30)
[2019-10-30] MEDS: Aspirin 81 MG TAB.CHEW PO (08:31)
--- NOTE | 2019-10-30 10:05 | NT.THERAPY_ITS ---
Nutrition Therapy Report - History Nutrition Services has been consulted to:: Manage nutrient details of diet order - Anthropometric Measurements Height:: 5 ft 3 in Weight:: 37.149 kg Body Mass Index (BMI):: 14.5 - Relevant Labs Relevant Labs:: WBC 11.2 K/mm3 (4.4-11.0) H 10/30/19 06:10 RBC 6.40 M/mm3 (4.2-5.4) H 10/29/19 14:15 Hgb 19.5 g/dL (12.0-15.0) H* 10/29/19 14:15 Hct 55.5 % (37-47) H 10/29/19 14:15 RDW Std Deviation 47.9 fl (35.1-43.9) H 10/30/19 06:10 RDW Coeff of Richard 15.0 % (11.6-14.6) H 10/29/19 14:15 Neut % (Auto) 71.5 % (47-70) H 10/29/19 14:15 Lymph % (Auto) 18.5 % (19-41) L 10/29/19 14:15 Absolute Neuts (auto) 7.9 X10^3/uL (2.0-7.7) H 10/30/19 06:10 Potassium 2.2 mmol/L (3.5-5.1) L* 10/30/19 06:10 Chloride 91 mmol/L (98-107) L 10/29/19 14:15 Anion Gap 19 (5-15) H 10/29/19 14:15 BUN 47 mg/dL (7-18) H 10/30/19 06:10 Creatinine 2.26 mg/dL (0.55-1.02) H 10/30/19 06:10 Est GFR (MDRD) Af Amer 29 mL/min (>60) L 10/30/19 06:10 Est GFR (MDRD) Non-Af 24 mL/min (>60) L 10/30/19 06:10 BUN/Creatinine Ratio 20.8 RATIO (10-20) H 10/30/19 06:10 Calcium 7.9 mg/dL (8.5-10.1) L 10/30/19 06:10 - Assessment Food / Nutrition-Related History:: Pt states Regular diet at home and is starving - during interview kept spitting into emesis bag. She reports that she has had n/v x 2 wks and dysphagia d/t esophageal stricture - surgery is following. PO intake has been poor and agreeable to ONS supplement. UBW: 56.699 kg - has had 34.5% wt loss x past 2 mo d/t issues w/ esophageal stricture. [ End ] - Nutrition Diagnosis Problem / Etiology / Signs & Symptoms (PES):: Pt with severe malnutrition r/t hx of n/v x 2 wks and issues with esophageal stricture x 2 mo AEB BMI Evidence of Malnutrition Exists:: Yes Severe PCM:: Chronic Illness - Nutrition Intervention Nutrition Prescription:: [id number] corry / 45-55 gm pro/day - Food / Nutrient Delivery Interventions Summary of nutrition intervention:: As medically able, rec LILIBETH to liberal Regular consistency per [employer] w/ ONS at [facility] and meals as tolerated. If TF warranted, rec Jevity 1.5 at goal rate 50 cc/hr with 150 cc H2O q 4 hours to provide ~ 1800 corry / 75 gm pro / 1812 cc free water. Would start tf at 20 cc/hr and increase by 10 cc/hr every 8-10 hrs as pt tolerates until goal rate achieved. Please monitor for s/s of refeeding syndrome r/t severe malnutrition. [ End ] Nutrition education provided?: No - MNT Monitoring Further MNT monitoring and evaluation required?: Yes MNT Follow-up in:: 1-2 days - Please call RD/LD if questions at ext [phone]
--- NOTE | 2019-10-30 10:07 | PCM.NTREPORT ---
Nutrition Therapy Report - History Nutrition Services has been consulted to:: Manage nutrient details of diet order - Anthropometric Measurements Height:: 5 ft 3.5 in Weight:: 37.149 kg Body Mass Index (BMI):: 14.3 - Relevant Labs Relevant Labs:: WBC 11.2 K/mm3 (4.4-11.0) H 10/30/19 06:10 RBC 6.40 M/mm3 (4.2-5.4) H 10/29/19 14:15 Hgb 19.5 g/dL (12.0-15.0) H* 10/29/19 14:15 Hct 55.5 % (37-47) H 10/29/19 14:15 RDW Std Deviation 47.9 fl (35.1-43.9) H 10/30/19 06:10 RDW Coeff of Richard 15.0 % (11.6-14.6) H 10/29/19 14:15 Neut % (Auto) 71.5 % (47-70) H 10/29/19 14:15 Lymph % (Auto) 18.5 % (19-41) L 10/29/19 14:15 Absolute Neuts (auto) 7.9 X10^3/uL (2.0-7.7) H 10/30/19 06:10 Potassium 2.2 mmol/L (3.5-5.1) L* 10/30/19 06:10 Chloride 91 mmol/L (98-107) L 10/29/19 14:15 Anion Gap 19 (5-15) H 10/29/19 14:15 BUN 47 mg/dL (7-18) H 10/30/19 06:10 Creatinine 2.26 mg/dL (0.55-1.02) H 10/30/19 06:10 Est GFR (MDRD) Af Amer 29 mL/min (>60) L 10/30/19 06:10 Est GFR (MDRD) Non-Af 24 mL/min (>60) L 10/30/19 06:10 BUN/Creatinine Ratio 20.8 RATIO (10-20) H 10/30/19 06:10 Calcium 7.9 mg/dL (8.5-10.1) L 10/30/19 06:10 - Assessment Food / Nutrition-Related History:: Pt states Regular diet at home and is starving - during interview kept spitting into emesis bag. She reports that she has had n/v x 2 wks and dysphagia d/t esophageal stricture - surgery is following. PO intake has been poor and agreeable to ONS supplement. UBW: 56.699 kg - has had 34.5% wt loss x past 2 mo d/t issues w/ esophageal stricture. [ End ] - Nutrition Diagnosis Problem / Etiology / Signs & Symptoms (PES):: Pt with s/s of severe malnutrition r/t decreased po intake x 2 mo d/t issues esophageal stricture, intractable n/v x 2 wks AEB BMI Evidence of Malnutrition Exists:: Yes Severe PCM:: Chronic Illness
--- NOTE | 2019-10-30 10:32 | PCM.PN.HOSP ---
<Manas Garcia - Last Filed: 10/30/19 10:32> Reason for Visit: n/v Subjective: currently no nausea. no abd pain. no fever/chills. No diarrhea. no sob/cough. Vitals/I&O's: Vital Signs Temp Pulse Resp BP Pulse Ox 98.8 F 82 16 127/94 H 98 10/30/19 03:40 10/30/19 07:07 10/30/19 06:57 10/30/19 03:40 10/30/19 06:57 Oxygen Delivery Method Room Air Weight: 81 lb 14.392 oz Body Mass Index (BMI) 14.5 Intake and Output for Last 24 Hours 10/28/19 10/29/19 10/30/19 23:59 23:59 23:59 Intake Total / 1077.08 / 1077.08 Output Total 750 / 750 Balance 1996. / 1397.5 327.08 / 327.08 General: Alert, Oriented x3, Cooperative, - - malnourished, frail HEENT: Atraumatic, PERRLA, EOMI, Normocephalic Neck: Supple, No JVD, Negative Carotid Bruits Lungs: Clear to auscultation, Normal air movement Cardiovascular: Regular rate, No murmurs Abdomen: Bowel Sounds Present, Soft, Non Tender Extremities: No edema, Capillary Refill Less than 3 Seconds Skin: No rashes, No breakdown Musculoskeletal: No Tenderness to Palpation of Joints or Extremities Neurological: Cranial nerves II-XII grossly intact Psych/Mental Status: Normal Affect, Appropriate, Alert and oriented to time, place, person, mood and affect Laboratory Results 10/29/19 13:50: WBC Cancelled, Corrected WBC Cancelled, RBC Cancelled, Hgb Cancelled, Hct Cancelled, MCV Cancelled, MCH Cancelled, MCHC Cancelled, RDW Std Deviation Cancelled, RDW Coeff of Richard Cancelled, Plt Count Cancelled, MPV Cancelled, Immature Gran % (Auto) Cancelled, Neut % (Auto) Cancelled, Lymph % (Auto) Cancelled, Ada % (Auto) Cancelled, Eos % (Auto) Cancelled, Baso % (Auto) Cancelled, Absolute Neuts (auto) Cancelled, Absolute Lymphs (auto) Cancelled, Total Counted Cancelled, Neutrophils % (Manual) Cancelled, Band Neutrophils % Cancelled, Lymphocytes % (Manual) Cancelled, Monocytes % (Manual) Cancelled, Eosinophils % (Manual) Cancelled, Basophils % (Manual) Cancelled, Metamyelocytes % Cancelled, Myelocytes % Cancelled, Promyelocytes % Cancelled, Blast Cells % Cancelled, Plasma Cell % (Manual) Cancelled, Other Cells % Cancelled, Nucleated RBC % Cancelled, Nucleated RBCs/100 WBC Cancelled, Differential Comment Cancelled, Diff Path Review Cancelled, Hypersegmented Neuts Cancelled, Atypical Lymphocytes Cancelled, Reactive Lymphocytes Cancelled, Smudge Cells Cancelled, Toxic Granulation Cancelled, Toxic Vacuolation Cancelled, Dohle Bodies Cancelled, Catarino Rods Cancelled, Platelet Estimate Cancelled, Plt Morphology Comment Cancelled, RBC Morphology Cancelled, Polychromasia Cancelled, Hypochromasia Cancelled, Poikilocytosis Cancelled, Basophilic Stippling Cancelled, Anisocytosis Cancelled, Microcytosis Cancelled, Macrocytosis Cancelled, Spherocytes Cancelled, Sickle Cells Cancelled, Target Cells Cancelled, Tear Drop Cells Cancelled, Ovalocytes Cancelled, Stomatocytes Cancelled, [place] Bodies Cancelled, Dalton Cells Cancelled, Bite Cells Cancelled, Crenated Cell Cancelled, Acanthocytes (Spur) Cancelled, Rouleaux Cancelled, Schistocytes Cancelled 10/29/19 13:50: Sodium Cancelled, Potassium Cancelled, Chloride Cancelled, Carbon Dioxide Cancelled, Anion Gap Cancelled, BUN Cancelled, Creatinine Cancelled, Estim Creat Clear Calc Cancelled, Est GFR (MDRD) Af Amer Cancelled, Est GFR (MDRD) Non-Af Cancelled, BUN/Creatinine Ratio Cancelled, Glucose Cancelled, Calcium Cancelled, Total Bilirubin Cancelled, AST Cancelled, ALT Cancelled, Alkaline Phosphatase Cancelled, Total Protein Cancelled, Albumin Cancelled, Globulin Cancelled, Albumin/Globulin Ratio Cancelled, Lipase Cancelled 10/29/19 14:15: WBC 13.6 H, RBC 6.40 H, Hgb 19.5 H*, Hct 55.5 H, MCV 86.7, MCH 30.5, MCHC 35.1, RDW Std Deviation 45.8 H, RDW Coeff of Richard 15.0 H, Plt Count 186, MPV 11.9, Immature Gran % (Auto) 0.300, Neut % (Auto) 71.5 H, Lymph % (Auto) 18.5 L, Ada % (Auto) 9.2, Eos % (Auto) 0.1, Baso % (Auto) 0.4, Absolute Neuts (auto) 9.7 H, Absolute Lymphs (auto) 2.51, Nucleated RBC % 0, Diff Path Review December10/29/19 14:15: Sodium 136, Potassium 2.0 L*, Chloride 91 L, Carbon Dioxide 26.0, Anion Gap 19 H, BUN 57 H, Creatinine 2.96 H, Estim Creat Clear Calc 12.50, Est GFR (MDRD) Af Amer 21 L, Est GFR (MDRD) Non-Af 17 L, BUN/Creatinine Ratio 19.3, Glucose 94, Calcium 9.8, Total Bilirubin Cancelled, AST Cancelled, ALT Cancelled, Alkaline Phosphatase Cancelled, Total Protein Cancelled, Albumin Cancelled, Globulin Cancelled, Albumin/Globulin Ratio Cancelled, Lipase 151 10/29/19 14:20: Urine Color Yellow, Urine Clarity Clear, Urine pH 6.0, Ur Specific [place] 1.020, Urine Protein 30 H, Urine Glucose (UA) Normal, Urine Ketones 5 H, Urine Occult Blood 10 H, Urine Nitrite Negative, Urine Bilirubin 1 H, Urine Urobilinogen 1 H, Ur Leukocyte Esterase 100 H, Urine RBC 0-5 SEEN, Urine WBC 10-25 SEEN, Ur Squamous Epith Cells 5-10 SEEN, Urine Bacteria 1+, Hyaline Casts 0-5 SEEN, Urine Mucus 0 SEEN 10/30/19 05:55: Phosphorus Cancelled, Magnesium Cancelled 10/30/19 06:10: WBC 11.2 H, RBC 4.59, Hgb 14.4, Hct 41.4, MCV 90.2, MCH 31.4, MCHC 34.8, RDW Std Deviation 47.9 H, RDW Coeff of Richard 14.6, Plt Count 167, MPV 11.7, Immature Gran % (Auto) 0.400, Neut % (Auto) 69.9, Lymph % (Auto) 19.0, Ada % (Auto) 9.9, Eos % (Auto) 0.3, Baso % (Auto) 0.5, Absolute Neuts (auto) 7.9 H, Absolute Lymphs (auto) 2.13, Nucleated RBC % 0 10/30/19 06:10: Sodium 141, Potassium 2.2 L*, Chloride 104, Carbon Dioxide 22.0, Anion Gap 15, BUN 47 H, Creatinine 2.26 H, Estim Creat Clear Calc 15.91, Est GFR (MDRD) Af Amer 29 L, Est GFR (MDRD) Non-Af 24 L, BUN/Creatinine Ratio 20.8 H, Glucose 74, Calcium 7.9 L, Phosphorus 3.5, Magnesium 2.3 Current Medications Acetaminophen (Tylenol) 650 mg PO Q6H PRN PRN PRN Reason: Pain Score 1-10/Temp > 100.7 F Al Hydroxide/Mg Hydroxide (Mylanta Ii) 30 ml PO Q6H PRN PRN PRN Reason: Gastric Burning Albuterol Sulfate (Ventolin Aerosols) 2.5 mg INHALATION Q2H PRN PRN PRN Reason: Shortness of Breath/Wheezing Aspirin (Aspirin, Baby) 81 mg PO DAILY@0800 [facility] Last Admin: 10/30/19 08:31 Dose: 81 mg Documented by: Atorvastatin Calcium (Lipitor) 20 mg PO QHS [facility] Last Admin: 10/29/19 22:02 Dose: Not Given Documented by: Dextrose (D50w Syringe) 0 gm IV X1 PRN; Protocol PRN Reason: Hypoglycemia Glucagon () 1 mg IM .X1 PRN PRN Reason: Hypoglycemia Guaifenesin (Robitussin) 20 ml PO Q4H PRN PRN PRN Reason: COUGH Heparin Sodium (Porcine) (Heparin Na) 5,000 unit SC Q12 [facility] Last Admin: 10/29/19 22:03 Dose: 5,000 unit Documented by: Hydralazine HCl (Apresoline Iv) 10 mg IV Q4H PRN PRN PRN Reason: SBP > 160 Last Admin: 10/29/19 20:48 Dose: 10 mg Documented by: Pantoprazole Sodium 40 mg/ (Sodium Chloride) 110 mls @ 330 mls/hr IV Q12 [facility] Last Infusion: 10/29/19 18:54 Dose: Infused Documented by: Potassium Chloride/Sodium Chloride () 1,000 mls @ 125 mls/hr IV .Q8H [facility] Last Admin: 10/30/19 06:54 Dose: 125 mls/hr Documented by: Potassium Chloride () 10 meq in 100 mls @ 100 mls/hr IV BOLUS Q1H [facility] Stop: 10/30/19 14:59 Magnesium Hydroxide (Milk Of Magnesia) 30 ml PO DAILY PRN PRN PRN Reason: Constipation Morphine Sulfate () 2 mg IV Q3H PRN PRN PRN Reason: Pain Score 6-10/10 Nicotine (Nicoderm Cq (Pbkc)) 7 mg TRANSDERM. DAILY [facility] Last Admin: 10/29/19 18:31 Dose: 7 mg Documented by: Nutritional Formula (Lactose Free) (Ensure Clear) 120 ml PO 4X/DAY [facility] [place] Last Admin: 10/29/19 22:01 Dose: Not Given Documented by: Ondansetron HCl (Zofran) 4 mg IV Q8H PRN PRN PRN Reason: NAUSEA/VOMITING Last Admin: 10/29/19 18:44 Dose: 4 mg Documented by: Oxycodone HCl (Oxyir) 5 mg PO Q4H PRN PRN PRN Reason: Pain Score 4-5/10 Prochlorperazine Edisylate (Compazine Iv) 5 mg IV Q4H PRN PRN PRN Reason: Breakthrough nausea/vomiting Last Admin: 10/30/19 08:30 Dose: 5 mg Documented by: Psyllium Hydrophilic Mucilloid (Metamucil) 1 packet PO DAILY PRN PRN PRN Reason: Constipation Senna/Docusate Sodium (Senokot-S, Bethany-Colace) 2 tablet PO BID PRN PRN PRN Reason: Constipation Sodium Chloride () 10 - 40 ml IV UD PRN PRN Reason: SALINE FLUSH Last Admin: 10/29/19 20:51 Dose: 10 ml Documented by: Throat Lozenges (Cepacol Sore Throat Lozenge) 1 lozenge MUCOUS MEM Q2H PRN PRN PRN Reason: SORE THROAT Last Admin: 10/29/19 18:44 Dose: 1 lozenge Documented by: Trazodone HCl (Desyrel) 50 mg PO QHS PRN PRN Reason: INSOMNIA STROKE Vital Signs/Narrative: Vital Signs Pulse Resp Pulse Ox 10/30/19 07:07 82 10/30/19 06:57 16 98 Medical Necessity - Tobacco Use Smoking Status: Current every day smoker Tobacco Use: Cigarettes Assessment/Plan 1. intractable n/v - possibly 2/2 esophageal stricture vs cholecystitis. Continue IVF and IV protonix. RUQ us today, possible EGD. Had dilatation in [place] in september. Records requested. Gen Surgery following. lipase normal. UA consistent with dehydration. WBC improved. Afebrile. 2. Hypokalemia 2/2 above - replete with 40 k riders, recheck this afternoon. mag/phos normal 3. DEANDRE 2/2 #1 - improving, continue IVF. 4. Tobacco abuse - needs complete cessation, patch if desired 5. 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 Hx GI bleed, ulcers - on ppi 7. Hx CVA - continue asa/statin, mild chronic right sided weakness. DVT ppx: heparin This patient was seen by Manas Garcia PA-C under the supervision of Doctor Amrik. <Milagro Rowley E - Last Filed: 10/30/19 12:20> Vitals/I&O's: Vital Signs Temp Pulse Resp BP Pulse Ox 98.8 F 82 16 127/94 H 98 10/30/19 03:40 10/30/19 07:07 10/30/19 06:57 10/30/19 03:40 10/30/19 06:57 Oxygen Delivery Method Room Air Weight: 81 lb 14.392 oz Body Mass Index (BMI) 14.5 Intake and Output for Last 24 Hours 10/28/19 10/29/19 10/30/19 23:59 23:59 23:59 Intake Total 1996.1996. 1077.08 / 1077.08 Output Total 750 / 750 Balance 1996. 1397.5 327.08 / 327.08 Laboratory Results 10/29/19 13:50: WBC Cancelled, Corrected WBC Cancelled, RBC Cancelled, Hgb Cancelled, Hct Cancelled, MCV Cancelled, MCH Cancelled, MCHC Cancelled, RDW Std Deviation Cancelled, RDW Coeff of Richard Cancelled, Plt Count Cancelled, MPV Cancelled, Immature Gran % (Auto) Cancelled, Neut % (Auto) Cancelled, Lymph % (Auto) Cancelled, Ada % (Auto) Cancelled, Eos % (Auto) Cancelled, Baso % (Auto) Cancelled, Absolute Neuts (auto) Cancelled, Absolute Lymphs (auto) Cancelled, Total Counted Cancelled, Neutrophils % (Manual) Cancelled, Band Neutrophils % Cancelled, Lymphocytes % (Manual) Cancelled, Monocytes % (Manual) Cancelled, Eosinophils % (Manual) Cancelled, Basophils % (Manual) Cancelled, Metamyelocytes % Cancelled, Myelocytes % Cancelled, Promyelocytes % Cancelled, Blast Cells % Cancelled, Plasma Cell % (Manual) Cancelled, Other Cells % Cancelled, Nucleated RBC % Cancelled, Nucleated RBCs/100 WBC Cancelled, Differential Comment Cancelled, Diff Path Review Cancelled, Hypersegmented Neuts Cancelled, Atypical Lymphocytes Cancelled, Reactive Lymphocytes Cancelled, Smudge Cells Cancelled, Toxic Granulation Cancelled, Toxic Vacuolation Cancelled, Dohle Bodies Cancelled, Catarino Rods Cancelled, Platelet Estimate Cancelled, Plt Morphology Comment Cancelled, RBC Morphology Cancelled, Polychromasia Cancelled, Hypochromasia Cancelled, Poikilocytosis Cancelled, Basophilic Stippling Cancelled, Anisocytosis Cancelled, Microcytosis Cancelled, Macrocytosis Cancelled, Spherocytes Cancelled, Sickle Cells Cancelled, Target Cells Cancelled, Tear Drop Cells Cancelled, Ovalocytes Cancelled, Stomatocytes Cancelled, [place] Bodies Cancelled, Prisca Cells Cancelled, Bite Cells Cancelled, Crenated Cell Cancelled, Acanthocytes (Spur) Cancelled, Rouleaux Cancelled, Schistocytes Cancelled 10/29/19 13:50: Sodium Cancelled, Potassium Cancelled, Chloride Cancelled, Carbon Dioxide Cancelled, Anion Gap Cancelled, BUN Cancelled, Creatinine Cancelled, Estim Creat Clear Calc Cancelled, Est GFR (MDRD) Af Amer Cancelled, Est GFR (MDRD) Non-Af Cancelled, BUN/Creatinine Ratio Cancelled, Glucose Cancelled, Calcium Cancelled, Total Bilirubin Cancelled, AST Cancelled, ALT Cancelled, Alkaline Phosphatase Cancelled, Total Protein Cancelled, Albumin Cancelled, Globulin Cancelled, Albumin/Globulin Ratio Cancelled, Lipase Cancelled 10/29/19 14:15: WBC 13.6 H, RBC 6.40 H, Hgb 19.5 H*, Hct 55.5 H, MCV 86.7, MCH 30.5, MCHC 35.1, RDW Std Deviation 45.8 H, RDW Coeff of Richard 15.0 H, Plt Count 186, MPV 11.9, Immature Gran % (Auto) 0.300, Neut % (Auto) 71.5 H, Lymph % (Auto) 18.5 L, Ada % (Auto) 9.2, Eos % (Auto) 0.1, Baso % (Auto) 0.4, Absolute Neuts (auto) 9.7 H, Absolute Lymphs (auto) 2.51, Nucleated RBC % 0, Diff Path Review December10/29/19 14:15: Sodium 136, Potassium 2.0 L*, Chloride 91 L, Carbon Dioxide 26.0, Anion Gap 19 H, BUN 57 H, Creatinine 2.96 H, Estim Creat Clear Calc 12.50, Est GFR (MDRD) Af Amer 21 L, Est GFR (MDRD) Non-Af 17 L, BUN/Creatinine Ratio 19.3, Glucose 94, Calcium 9.8, Total Bilirubin Cancelled, AST Cancelled, ALT Cancelled, Alkaline Phosphatase Cancelled, Total Protein Cancelled, Albumin Cancelled, Globulin Cancelled, Albumin/Globulin Ratio Cancelled, Lipase 151 10/29/19 14:20: Urine Color Yellow, Urine Clarity Clear, Urine pH 6.0, Ur Specific [place] 1.020, Urine Protein 30 H, Urine Glucose (UA) Normal, Urine Ketones 5 H, Urine Occult Blood 10 H, Urine Nitrite Negative, Urine Bilirubin 1 H, Urine Urobilinogen 1 H, Ur Leukocyte Esterase 100 H, Urine RBC 0-5 SEEN, Urine WBC 10-25 SEEN, Ur Squamous Epith Cells 5-10 SEEN, Urine Bacteria 1+, Hyaline Casts 0-5 SEEN, Urine Mucus 0 SEEN 10/30/19 05:55: Phosphorus Cancelled, Magnesium Cancelled 10/30/19 06:10: WBC 11.2 H, RBC 4.59, Hgb 14.4, Hct 41.4, MCV 90.2, MCH 31.4, MCHC 34.8, RDW Std Deviation 47.9 H, RDW Coeff of Richard 14.6, Plt Count 167, MPV 11.7, Immature Gran % (Auto) 0.400, Neut % (Auto) 69.9, Lymph % (Auto) 19.0, Ada % (Auto) 9.9, Eos % (Auto) 0.3, Baso % (Auto) 0.5, Absolute Neuts (auto) 7.9 H, Absolute Lymphs (auto) 2.13, Nucleated RBC % 0 10/30/19 06:10: Sodium 141, Potassium 2.2 L*, Chloride 104, Carbon Dioxide 22.0, Anion Gap 15, BUN 47 H, Creatinine 2.26 H, Estim Creat Clear Calc 15.91, Est GFR (MDRD) Af Amer 29 L, Est GFR (MDRD) Non-Af 24 L, BUN/Creatinine Ratio 20.8 H, Glucose 74, Calcium 7.9 L, Phosphorus 3.5, Magnesium 2.3 Current Medications Acetaminophen (Tylenol) 650 mg PO Q6H PRN PRN PRN Reason: Pain Score 1-10/Temp > 100.7 F Al Hydroxide/Mg Hydroxide (Mylanta Ii) 30 ml PO Q6H PRN PRN PRN Reason: Gastric Burning Albuterol Sulfate (Ventolin Aerosols) 2.5 mg INHALATION Q2H PRN PRN PRN Reason: Shortness of Breath/Wheezing Aspirin (Aspirin, Baby) 81 mg PO DAILY@0800 [facility] Last Admin: 10/30/19 08:31 Dose: 81 mg Documented by: Atorvastatin Calcium (Lipitor) 20 mg PO QHS [facility] Last Admin: 10/29/19 22:02 Dose: Not Given Documented by: Dextrose (D50w Syringe) 0 gm IV X1 PRN; Protocol PRN Reason: Hypoglycemia Glucagon () 1 mg IM .X1 PRN PRN Reason: Hypoglycemia Guaifenesin (Robitussin) 20 ml PO Q4H PRN PRN PRN Reason: COUGH Heparin Sodium (Porcine) (Heparin Na) 5,000 unit SC Q12 [facility] Last Admin: 10/30/19 11:51 Dose: 5,000 unit Documented by: Hydralazine HCl (Apresoline Iv) 10 mg IV Q4H PRN PRN PRN Reason: SBP > 160 Last Admin: 10/29/19 20:48 Dose: 10 mg Documented by: Pantoprazole Sodium 40 mg/ (Sodium Chloride) 110 mls @ 330 mls/hr IV Q12 [facility] [place] Last Admin: 10/30/19 11:55 Dose: 330 mls/hr Documented by: Potassium Chloride/Sodium Chloride () 1,000 mls @ 125 mls/hr IV .Q8H [facility] Last Admin: 10/30/19 06:54 Dose: 125 mls/hr Documented by: Potassium Chloride () 10 meq in 100 mls @ 100 mls/hr IV BOLUS Q1H [facility] [place] Stop: 10/30/19 14:59 Last Admin: 10/30/19 11:56 Dose: 100 mls/hr Documented by: Magnesium Hydroxide (Milk Of Magnesia) 30 ml PO DAILY PRN PRN PRN Reason: Constipation Morphine Sulfate () 2 mg IV Q3H PRN PRN PRN Reason: Pain Score 6-10/10 Nicotine (Nicoderm Cq (Pbkc)) 7 mg TRANSDERM. DAILY [facility] Last Admin: 10/30/19 11:52 Dose: 7 mg Documented by: Nutritional Formula (Lactose Free) (Ensure Clear) 120 ml PO 4X/DAY [facility] Last Admin: 10/30/19 11:51 Dose: Not Given Documented by: Ondansetron HCl (Zofran) 4 mg IV Q8H PRN PRN PRN Reason: NAUSEA/VOMITING Last Admin: 10/29/19 18:44 Dose: 4 mg Documented by: Oxycodone HCl (Oxyir) 5 mg PO Q4H PRN PRN PRN Reason: Pain Score 4-5/10 Prochlorperazine Edisylate (Compazine Iv) 5 mg IV Q4H PRN PRN PRN Reason: Breakthrough nausea/vomiting Last Admin: 10/30/19 08:30 Dose: 5 mg Documented by: Psyllium Hydrophilic Mucilloid (Metamucil) 1 packet PO DAILY PRN PRN PRN Reason: Constipation Senna/Docusate Sodium (Senokot-S, Bethany-Colace) 2 tablet PO BID PRN PRN PRN Reason: Constipation Sodium Chloride () 10 - 40 ml IV UD PRN PRN Reason: SALINE FLUSH Last Admin: 10/29/19 20:51 Dose: 10 ml Documented by: Throat Lozenges (Cepacol Sore Throat Lozenge) 1 lozenge MUCOUS MEM Q2H PRN PRN PRN Reason: SORE THROAT Last Admin: 10/29/19 18:44 Dose: 1 lozenge Documented by: Trazodone HCl (Desyrel) 50 mg PO QHS PRN PRN Reason: INSOMNIA Assessment/Plan Hospitalist note: I am seeing this patient in conjunction with Manas Garcia. I independently seen and examined the patient. Progress note above, laboratory data and imaging studies reviewed and I concur with the above treatment plan. Nausea and vomiting improved. Denied abdominal pain. According to the patient, she underwent upper EGD in the last couple of months at [facility] with dilation of the esophageal stenosis. They were able to have the esophageal break up to 7 mm and she has been eating and drinking okay until yesterday. Her vital signs are stable. - Physical Exam General: Alert, Oriented x3, Cooperative, No apparent distress. HEENT: Atraumatic, PERRLA, EOMI. Neck: Supple, No JVD, Negative Carotid Bruits, Trachea Midline, Thyroid Normal. Lungs: Diminished breath sounds bilateral, otherwise clear., No rhonchi, No wheeze, No rales. Cardiovascular: Regular rate, Regular Rhythm, Normal S1, Normal S2, PMI Normal. Abdomen: Bowel Sounds Present, Soft, Non Tender, Non-Distended, No Hepato-splenomegaly. Extremities: No clubbing, No cyanosis, No edema Skin: No rashes, No breakdown Neurological: Cranial nerves are intact, neuro grossly intact Vital Signs are stable. Assessment and plan: #1 intractable nausea and vomiting: In context of history of esophageal stenosis/stricture, status post dilatation at [facility] in the last couple of months. Patient does have a history of chronic dysphagia, not able to eat or drink currently. General surgery consulted, recommended right upper quadrant abdominal ultrasound. She is on IV fluids and IV antiemetics as well as IV Protonix. Plan to continue same treatment, obtain records from [facility]. #2 acute kidney injury: Secondary #1. She has been on IV fluids, serum creatinine is trending down. It was not 2.96 admission, came down to 2.26 today. Plan to continue same treatment. #3 severe hypokalemia: Secondary to intractable nausea and vomiting. Serum magnesium and phosphorus were normal. Plan for aggressive potassium replacement, repeat BMP tomorrow morning. #4 history of esophageal stenosis/stricture/dysphagia: Patient reported that she had balloon dilatation recently at [facility], plan as above. General surgery considering upper EGD. #5 other chronic medical problems: Stable, continue current medications as above. This note was generated with Monitiseation software. It may contain incorrect words, spelling, and punctuation that were not noted in checking the note before signing. Inpatient E&M: 76077 Subs Hosp L2
[2019-10-30] MEDS: Heparin Injection (Vial) 5,000 UNIT/ML VIAL 5000 UNIT SC ×2 (11:51→21:26)
[2019-10-30] MEDS: Potassium Chloride 10mEq/100mL 10 MEQ/100 ML IV.SOLN. 100 MEQ IV BOLUS ×4 (11:56→17:11)
--- NOTE | 2019-10-30 13:25 | CASEMGMT ---
EDISON MEDELLIN Face to Face with patient for initial transition planning/care coordination assessment. RN LACIE introduced self and role at [facility]. Patient sitting in chair, alert and oriented. Patient willing to participate in assessment and is able to answer all questions appropriately. Care providers, pharmacy, and demographics verified. Patient wishes to discharge home, denies need for home health at this time. Patient states she has no further needs or concerns at this time. CM to follow for discharge planning needs that may arise. PCP: No PCP, EDISON MEDELLIN provided list of PCPs in the area Specialists: none Preferred Pharmacy: [facility] [place] [facility] Prescription Benefit: yes Living Will/HPOA: none LNOK: Daughter, niece listed Living Arrangements: Patient lives with roommate in 2 story apartment, railing x2 to 2nd floor. Patient states she is independent for self care, roommate helps with cooking and cleaning. Transportation: Roommate DME/HHC: Patient states she has cane and walker at home. Denies previous HHC. Patient states she has been to [facility] in the past Disposition Plan: Patient to discharge home with family support and follow-up plans in place. Felicia PERKINS, RN, CM
[2019-10-30 13:32] LABS: Pathologist Review Reviewed
--- NOTE | 2019-10-30 14:50 | NURSING ---
DR CAREY CALLED. PT TO GO TO ENDO FOR EGD- WILL SEE PT IN ENDO. DR AWARE PT IS FINISHING 2ND K-CAROLYN. STATES BMP HAS BEEN ORDERED. PT TRANSPORTED TO ENDO VIA BED.
--- NOTE | 2019-10-30 15:05 | EKG12_ITS ---
Test Reason : RHYTHYM CHANGE Blood Pressure : / mmHG Vent. Rate : 085 BPM Atrial Rate : 312 BPM P-R Int : 000 ms QRS Dur : 094 ms QT Int : 314 ms P-R-T Axes : 077 076 -71 degrees QTc Int : 373 ms Poor data quality, interpretation may be adversely affected Normal sinus rhythm Left ventricular hypertrophy with repolarization abnormality Abnormal ECG Confirmed by CYNDY SAHU, LANCE ([id number]), market editor ARTHUR MARTINEZ ([id number]) on 11/01/2019 1:03:51 PM Referred By: DANIS Confirmed By:LANCE NAYLOR MD
--- NOTE | 2019-10-30 15:06 | SUR.PREOP ---
Critical lab value called to AC, potassium level of 2.5. Dr Pena and Dr. Watt made aware of level.
[2019-10-30 15:07] LABS: Anion Gap 13 (5-15); BUN 44 mg/dL (7-18); BUN/Creat Ratio 19.6 RATIO (10-20); Calcium,Total 8.5 mg/dL (8.5-10.1); Chloride 105 mmol/L (98-107); Creatinine, Serum 2.24 mg/dL (0.55-1.02); EST Glomerular Filtration Rate 24 mL/min (>60); Est Glom Filt Rate - Afr Amer 29 mL/min (>60); Estimated Creatinine Clearance 16.05 ml/min; Glucose 88 mg/dL (74-106); Potassium 2.5 mmol/L (3.5-5.1); Sodium Level 139 mmol/L (136-145)
--- NOTE | 2019-10-30 15:10 | PN_ITS ---
Progress Note The patient had ultrasound of the gallbladder today. I reviewed it and did not see any thickening of the gallbladder wall. The patient reports no abdominal pain at this time she is still unable to control her secretions. She is spitting all of her saliva out and unable to swallow even clear liquid or water. I believe she may be having an extreme stenosis of her esophagus or she may have a food impaction that has been going on for a long time. I recommend emergent EGD to clear the obstruction or balloon dilate the stricture if possible. I discussed EGD with her as well as balloon dilation and increased risk of perforation. I also discussed the increased risk of bleeding. The patient would like to proceed. Patient has had several dilations in the past. The patient is still hypokalemic but I believe this will be corrected much quicker once she is able to tolerate clear liquids and take oral nutrition as well. Be Watt MD Pager: [facility] [address] [place] [address], [address] [place] [address] Office: [facility] Vital Signs/Narrative: Vital Signs Temp Pulse Resp BP Pulse Ox 10/30/19 13:37 79 10/30/19 12:08 98.1 F 78 18 150/90 H 97
--- NOTE | 2019-10-30 15:53 | OP.EGD_ITS ---
Patient Name: Arabella Buchanan Procedure Date: 10/30/2019 3:04 PM Date of : 1960 Age: 59 Procedure: Upper GI endoscopy Indications: Foreign body in the esophagus, Stenosis of the esophagus Providers: Be Watt MD Medicines: Monitored Anesthesia Care Patient Profile: This is a 59 year old female. Refer to note in patient chart for documentation of history and physical. Complications: No immediate complications. Estimated blood loss: Minimal. Procedure: Pre-Anesthesia Assessment: - Prior to the procedure, a History and Physical was performed, and patient medications and allergies were reviewed. The patient's tolerance of previous anesthesia was also reviewed. The risks and benefits of the procedure and the sedation options and risks were discussed with the patient. All questions were answered, and informed consent was obtained. Prior Anticoagulants: The patient has taken no previous anticoagulant or antiplatelet agents. After reviewing the risks and benefits, the patient was deemed in satisfactory condition to undergo the procedure. After obtaining informed consent, the endoscope was passed under direct vision. Throughout the procedure, the patient's blood pressure, pulse, and oxygen saturations were monitored continuously. The gastroscope was introduced through the mouth, and advanced to the lower third of esophagus. The upper GI endoscopy was accomplished without difficulty. The patient tolerated the procedure well. Scope In: 3:37:40 PM Scope Out: 3:43:43 PM Total Procedure Duration Time 0 hours 6 minutes 3 seconds Findings: One benign-appearing, intrinsic stenosis was found. This stenosis was severe (stenosis; an endoscope cannot pass). Stenosis was not traversed. Forceps were used to push the food bolus through. A TTS dilator was passed through the scope. Dilation with a 6-7-8 mm balloon dilator was performed to 8 mm. The dilation site was examined following endoscope reinsertion and showed mild improvement in luminal narrowing. The food contents of distal esophagus were rinsed with water and were able to pass into the stomach. Impression: - Benign-appearing esophageal stenosis. Dilated. - Food was found in the esophagus. Removal was successful. Recommendation: - [facility]. - Full liquid diet only. - Continue present medications. Procedure Code(s): --- Professional --- 55757, 51, Esophagoscopy, flexible, transoral; with removal of foreign body(s) 72034, Esophagoscopy, flexible, transoral; with transendoscopic balloon dilation (less than 30 mm diameter) Diagnosis Code(s): --- Professional --- K22.2, Esophageal obstruction T18.128A, Food in esophagus causing other injury, initial encounter T18.108A, Unspecified foreign body in esophagus causing other injury, initial encounter CPT copyright 2017 [employer]. All rights reserved. The codes documented in this report are preliminary and upon manufacturing engineering technologist review may be revised to meet current compliance requirements. Be Watt MD 10/30/2019 3:52:32 PM This report has been signed electronically. Number of Addenda: 0 Note Initiated On: 10/30/2019 3:04 PM
--- NOTE | 2019-10-30 15:53 | OP.CCLET_ITS ---
10/30/2019 No Primary Care Physician Re : Upper GI endoscopy procedure for Arabella Buchanan Dear Care Physician This procedure was performed on Wednesday, October 30, 2019. My impressions and recommendations are as follows: Impressions : - Benign-appearing esophageal stenosis. Dilated. - Food was found in the esophagus. Removal was successful. Recommendations : - [facility]. - Full liquid diet only. - Continue present medications. My findings are described in the full procedure note, which is enclosed. If I can be of further assistance, please feel free to contact me at Doctor phone number(s): , Work: . Sincerely, Be Watt MD 10/30/2019 3:52:32 PM This report has been signed electronically.
[2019-10-30] MEDS: Ensure Clear 120 ML Liquid PO ×2 (17:15→21:21)
[2019-10-30] MEDS: Atorvastatin Calcium 20 MG Tablet PO (21:25)
[2019-10-31] VITALS (8 sets, daily range): BP systolic 137–149; BP diastolic 90–104; PULSE 72–88; RESP 16–18; TEMP 36.6–36.9; O2SAT 97–100
[2019-10-31 06:12] LABS: Absolute Lymphocyte Count 2.18 X10^3/uL (0.83-4.51); Absolute Neutrophil Count 4.6 X10^3/uL (2.0-7.7); Basophil# 0.03 X10^3/uL; Basophil% 0.4 % (0-1); Eosinophil# 0.07 X10^3/uL; Eosinophils% 0.9 % (0-5); Hematocrit 34.5 % (37-47); Hemoglobin 11.6 g/dL (12.0-15.0); Lymphocyte # 2.18 X10^3/ul (4.0); Lymphocyte % 28.2 % (19-41); Mean Corp Hgb Conc 33.6 g/dL (32-36); Mean Corpuscular Hgb 30.9 pg (27.0-32.0); Mean Platelet Vol. 11.8 fl (6.2-12.0); Monocyte# 0.83 X10^3/uL; Monocyte% 10.7 % (0-10); NRBC Flagged by Analyzer 0 % (0-5); Neutrophil # 4.59 X10^3/uL (2.7-7.7); Neutrophil % 59.4 % (47-70); Platelet Count 126 K/mm3 (150-450); RBC Distribution Width SD 50.4 fl (35.1-43.9); Red Blood Count 3.75 M/mm3 (4.2-5.4); White Blood Count 7.7 K/mm3 (4.4-11.0)
[2019-10-31 06:42] LABS: AST(SGOT) 21 U/L (15-37); Alanine Aminotransfer ALT/SGPT 12 U/L (13-56); Albumin, Serum 2.3 g/dL (3.2-5.0); Alkaline Phosphatase 50 U/L (45-117); Anion Gap 11 (5-15); BUN 33 mg/dL (7-18); BUN/Creat Ratio 20.9 RATIO (10-20); Calcium,Total 7.4 mg/dL (8.5-10.1); Chloride 105 mmol/L (98-107); Creatinine, Serum 1.58 mg/dL (0.55-1.02); EST Glomerular Filtration Rate 36 mL/min (>60); Est Glom Filt Rate - Afr Amer 43 mL/min (>60); Estimated Creatinine Clearance 22.76 ml/min; Globulin 2.3 g/dL (2.2-4.2); Glucose 88 mg/dL (74-106); Potassium 2.8 mmol/L (3.5-5.1); Protein, Total 4.6 g/dL (6.4-8.2); Sodium Level 135 mmol/L (136-145)
[2019-10-31] MEDS: Aspirin 81 MG TAB.CHEW PO (08:25)
--- NOTE | 2019-10-31 08:28 | PCM.PN.SRG ---
Subjective: Patient reports she is tolerating clears - Physical Exam Vitals/I&O's: Vital Signs Temp Pulse Resp BP Pulse Ox 98.4 F 72 16 137/90 H 98 10/31/19 03:34 10/31/19 05:02 10/31/19 03:34 10/31/19 03:34 10/31/19 07:43 Oxygen Delivery Method Room Air Weight: 81 lb 14.392 oz Body Mass Index (BMI) 14.5 Intake and Output for Last 24 Hours 10/29/19 10/30/19 10/31/19 23:59 23:59 23:59 Intake Total 4760.50 / 4760.50 554.17 / 554.17 Output Total 1490 / 1490 200 / 200 Balance 139.5 3270.50 / 3270.50 354.17 / 354.17 General: Alert, Oriented x3 Lungs: Normal air movement Microbiology Past 72 Hours 10/29/19 14:20 Urine, Clean Catch Urine Culture - Final Mixed Gram Positive Organisms Laboratory Results 10/29/19 14:15: Diff Path Review Reviewed 10/30/19 14:45: Sodium 139, Potassium 2.5 L*, Chloride 105, Carbon Dioxide 21.0, Anion Gap 13, BUN 44 H, Creatinine 2.24 H, Estim Creat Clear Calc 16.05, Est GFR (MDRD) Af Amer 29 L, Est GFR (MDRD) Non-Af 24 L, BUN/Creatinine Ratio 19.6, Glucose 88, Calcium 8.5 10/31/19 05:58: WBC 7.7, RBC 3.75 L, Hgb 11.6 L, Hct 34.5 L, MCV 92.0, MCH 30.9, MCHC 33.6, RDW Std Deviation 50.4 H, RDW Coeff of Richard 15.0 H, Plt Count 126 L, MPV 11.8, Immature Gran % (Auto) 0.400, Neut % (Auto) 59.4, Lymph % (Auto) 28.2, [place] % (Auto) 10.7 H, Eos % (Auto) 0.9, Baso % (Auto) 0.4, Absolute Neuts (auto) 4.6, Absolute Lymphs (auto) 2.18, Nucleated RBC % 0 10/31/19 05:58: Sodium 135 L, Potassium 2.8 L, Chloride 105, Carbon Dioxide 19.0 L, Anion Gap 11, BUN 33 H, Creatinine 1.58 H, Estim Creat Clear Calc 22.76, Est GFR (MDRD) Af Amer 43 L, Est GFR (MDRD) Non-Af 36 L, BUN/Creatinine Ratio 20.9 H, Glucose 88, Calcium 7.4 L, Total Bilirubin 0.70, AST 21, ALT 12 L, Alkaline Phosphatase 50, Total Protein 4.6 L, Albumin 2.3 L, Globulin 2.3, Albumin/Globulin Ratio 1.0 Current Medications Acetaminophen (Tylenol) 650 mg PO Q6H PRN PRN PRN Reason: Pain Score 1-10/Temp > 100.7 F Al Hydroxide/Mg Hydroxide (Mylanta Ii) 30 ml PO Q6H PRN PRN PRN Reason: Gastric Burning Albuterol Sulfate (Ventolin Aerosols) 2.5 mg INHALATION Q2H PRN PRN PRN Reason: Shortness of Breath/Wheezing Aspirin (Aspirin, Baby) 81 mg PO DAILY@0800 [facility] Last Admin: 10/31/19 08:25 Dose: 81 mg Documented by: Atorvastatin Calcium (Lipitor) 20 mg PO QHS [facility] Last Admin: 10/30/19 21:25 Dose: 20 mg Documented by: Dextrose (D50w Syringe) 0 gm IV X1 PRN; Protocol PRN Reason: Hypoglycemia Glucagon () 1 mg IM .X1 PRN PRN Reason: Hypoglycemia Guaifenesin (Robitussin) 20 ml PO Q4H PRN PRN PRN Reason: COUGH Heparin Sodium (Porcine) (Heparin Na) 5,000 unit SC Q12 [facility] Last Admin: 10/30/19 21:26 Dose: 5,000 unit Documented by: Hydralazine HCl (Apresoline Iv) 10 mg IV Q4H PRN PRN PRN Reason: SBP > 160 Last Admin: 10/29/19 20:48 Dose: 10 mg Documented by: Pantoprazole Sodium 40 mg/ (Sodium Chloride) 110 mls @ 330 mls/hr IV Q12 [facility] Last Infusion: 10/30/19 21:41 Dose: Infused Documented by: Potassium Chloride/Sodium Chloride () 1,000 mls @ 125 mls/hr IV .Q8H [facility] Last Admin: 10/31/19 01:01 Dose: 125 mls/hr Documented by: Sodium Chloride () 250 mls @ 15 mls/hr IV .[id number] PRN PRN Reason: Saline Flush Last Infusion: 10/30/19 21:47 Dose: 0 mls/hr Documented by: Magnesium Hydroxide (Milk Of Magnesia) 30 ml PO DAILY PRN PRN PRN Reason: Constipation Morphine Sulfate () 2 mg IV Q3H PRN PRN PRN Reason: Pain Score 6-10/10 Nicotine (Nicoderm Cq (Pbkc)) 7 mg TRANSDERM. DAILY [facility] Last Admin: 10/30/19 11:52 Dose: 7 mg Documented by: Nutritional Formula (Lactose Free) (Ensure Clear) 120 ml PO 4X/DAY [facility] Last Admin: 10/30/19 21:21 Dose: 120 ml Documented by: Ondansetron HCl (Zofran) 4 mg IV Q8H PRN PRN PRN Reason: NAUSEA/VOMITING Last Admin: 10/29/19 18:44 Dose: 4 mg Documented by: Oxycodone HCl (Oxyir) 5 mg PO Q4H PRN PRN PRN Reason: Pain Score 4-5/10 Prochlorperazine Edisylate (Compazine Iv) 5 mg IV Q4H PRN PRN PRN Reason: Breakthrough nausea/vomiting Last Admin: 10/30/19 08:30 Dose: 5 mg Documented by: Psyllium Hydrophilic Mucilloid (Metamucil) 1 packet PO DAILY PRN PRN PRN Reason: Constipation Senna/Docusate Sodium (Senokot-S, [place]-Colace) 2 tablet PO BID PRN PRN PRN Reason: Constipation Sodium Chloride () 10 - 40 ml IV UD PRN PRN Reason: SALINE FLUSH Last Admin: 10/29/19 20:51 Dose: 10 ml Documented by: Throat Lozenges (Cepacol Sore Throat Lozenge) 1 lozenge MUCOUS MEM Q2H PRN PRN PRN Reason: SORE THROAT Last Admin: 10/29/19 18:44 Dose: 1 lozenge Documented by: Trazodone HCl (Desyrel) 50 mg PO QHS PRN PRN Reason: INSOMNIA Medical Necessity - Tobacco Use Smoking Status: Current every day smoker Tobacco Use: Cigarettes Assessment/Plan 59-year-old female with severe esophageal stenosis and food impaction 1. Patient reports that she is feeling much better after the food impaction was resolved and she had dilation. She is tolerating clear liquid diet. She can be advanced to full liquids but not beyond that. She needs to see a GI doctor as an outpatient for serial dilations. Continue PPI. Encourage smoking cessation Be Watt MD Pager: [facility] [address] [place] [address], [address] [place] [address] Office:
--- NOTE | 2019-10-31 09:34 | PCM.DC ---
You will use the following diet at home:: Cardiac Your food should be the consistency of: Soft (bite-sized & easy to chew/swallow) Discharge Activity: Return to Normal Activity Weight Bearing Status: Weight bearing as tolerated Call your doctor if you observe: Fever of 101 or Higher, Shortness of breath, Dizziness, Fainting spells, Chest pain, Increased palpitations (irregular heartbeat), Uncontrolled pain Allergies/Adverse Reactions: Allergies No Known Allergies Allergy (Verified 10/29/19 13:48) Medications to take at Discharge Aspirin [Aspirin, Baby] 81 mg PO DAILY@0800 #90 tab.chew 10/31/19 Atorvastatin Calcium [Lipitor] 20 mg PO QHS #90 tab 10/31/19 Pantoprazole Sodium [Protonix] 40 mg PO DAILY #90 tab 10/31/19 Potassium Chloride 20 meq PO DAILY 7 Days #7 liquid 10/31/19 The following prescriptions were given: Aspirin [Aspirin, Baby] 81 mg PO DAILY@0800 #90 tab.chew Transmission Status: Pending to [facility] Atorvastatin Calcium [Lipitor] 20 mg PO QHS #90 tab Transmission Status: Pending to [facility]30 Potassium Chloride 20 meq PO DAILY 7 Days #7 liquid Transmission Status: Pending to [facility] Pantoprazole Sodium [Protonix] 40 mg PO DAILY #90 tab Transmission Status: Pending to [facility] Primary Care Physician: Care Physician,No Primary [Primary Care Provider] - Please follow up with your Primary Care Physician in: 1-2 weeks. Test Results: Test results from this visit will be discussed in further detail at your follow-up appointment, if applicable. Please Follow Up With: Guerrero Duran MD When: 2--4 weeks. You may need a referral from your PCP
[2019-10-31] MEDS: Ensure Clear 120 ML Liquid PO (10:22)
[2019-10-31] MEDS: 0.9% Normal Saline 1,000 ML 75 ML IV (10:27)
[2019-10-31] MEDS: Potassium Chloride 10mEq/100mL 10 MEQ/100 ML IV.SOLN. 100 MEQ IV BOLUS ×3 (10:31→13:10)
[2019-10-31] MEDS: Menthol/Lanolin/Calamine/Znox 113 GM Tube 1 APPLIC TOPICAL (10:34)
--- NOTE | 2019-10-31 10:44 | PCM.DC.SUM ---
Discharge Date and Diagnosis Date of Admission: 10/29/19 Date of Discharge: 10/31/19 - Primary Discharge Diagnosis #1 intractable nausea and vomiting/dysphagia due to esophageal food impaction. #2 esophageal stenosis, status post dilation. #3 acute kidney injury. #4 severe hypokalemia. - Secondary Discharge Diagnosis Chronic Problems EtOH dependence (Chronic) Dysphagia (Chronic) Esophageal stricture (Chronic) History of CVA (cerebrovascular accident) (Chronic) HLD (hyperlipidemia) (Chronic) Gastroesophageal reflux disease (Chronic) Depression (Chronic) Benign essential HTN (Chronic) Hospital Course and Treatment Imaging Results: Clinical Impression(s) from Imaging Studies Abdomen/Pelvis CT 10/29/19 13:37 IMPRESSION: Moderate sized hiatal hernia. Stable multiple small hepatic cysts. Electronically Signed: Itz Lockwood, at 14:27 EDT , Service support , Gallbladder Ultrasound 10/30/19 07:33 IMPRESSION: Heterogeneous echotexture of the liver. Hepatic cysts. Electronically Signed: Itz Lockwood, at 15:27 EDT , Service support , Dr. serrano, general surgery. Operations: None Procedures: EGD Summary of Care Provided: Patient seen and examined on the day of discharge and appeared to be stable to be discharged home. After she underwent upper EGD, dilatation and removal of the food impaction, patient felt significantly better. She has been doing well with full liquid diet. Her vital signs are stable. The patient is a 59 year old F presented to the emergency room because of abdominal pain, difficulty swallowing, nausea and vomiting for 2 weeks duration. This patient had history of esophageal stenosis/stricture and she has been having chronic dysphagia. She had upper EGD on June, by Dr. Cornell that revealed benign-appearing esophageal stenosis that was not amenable to dilatation. According to the patient, she underwent upper EGD with dilation of the esophageal stricture at [facility] several weeks ago. During this hospital stay, she was found to have severe hypokalemia and acute kidney injury secondary to difficulty swallowing as well as intractable nausea and vomiting. Patient was treated with IV fluids, IV Protonix and IV antiemetics as well as aggressive replacement of her electrolytes. Her serum magnesium and phosphorus were normal. Potassium was 2 mmol/L which is very low. She received potassium placement and her potassium improved. On admission, her serum creatinine was 2.96 consistent with acute kidney injury secondary to severe dehydration. With IV fluids, her creatinine came down to 1.58 mg/dL on discharge. General surgery consulted and patient underwent upper EGD that revealed benign-appearing esophageal stenosis which was dilated, found to have food impacted in the esophagus which was removed. After the procedure, patient symptoms improved significantly and she was started on clear liquids and later, she was advanced to full liquid diet and she did very well. She was given aggressive potassium replacement on the day of discharge. Patient had a history of stroke and apparently, she has not been taking her aspirin and statins. Her blood pressure initially was elevated but then stabilized. Patient did very well and she tolerated full liquid diet. Patient discharged home in a stable medical condition, discharged on Protonix 40 mg p.o. daily, started back on aspirin and statins, discharged on potassium supplement by potassium chloride liquid, recommended referral to GI as outpatient as patient might need frequent dilation of distal esophageal stenosis, recommended soft diet, bite sized and easy to swallow, I recommended from with PCP in 1 to 2 weeks. - Physical Exam Vitals/I&O's: Vital Signs Temp Pulse Resp BP Pulse Ox 97.8 F 78 16 139/98 H 97 10/31/19 10:15 10/31/19 10:15 10/31/19 10:15 10/31/19 10:15 10/31/19 10:15 Oxygen Delivery Method Room Air Weight: 81 lb 14.392 oz Body Mass Index (BMI) 14.5 Intake and Output for Last 24 Hours 10/29/19 10/30/19 10/31/19 23:59 23:59 23:59 Intake Total 4760.50 / 4760.50 1554.17 / 1554.17 Output Total 1490 / 1490 200 / 200 Balance 139.5 3270.50 / 3270.50 1354.17 / 1354.17 General: Alert, Oriented x3, Cooperative, No apparent distress HEENT: Atraumatic, PERRLA, EOMI, Normocephalic Oral: Moist Mucosa, No Gingival or Mucosal Lesions/ Ulcerations Neck: Supple, No JVD, Negative Carotid Bruits, Trachea Midline, Thyroid Normal Size and Texture Lungs: Clear to auscultation, Normal air movement, No rhonchi, No wheeze, No rales Cardiovascular: Regular rate, Regular Rhythm, Normal S1, Normal S2, PMI Normal Abdomen: Bowel Sounds Present, Soft, Non Tender, Non-Distended, No Hepato-splenomegaly Extremities: No clubbing, No cyanosis, No edema Skin: No rashes, No breakdown Lymphatic: No Cervical, Supraclavicular, or Inguinal Adenopathy Neurological: Cranial nerves II-XII grossly intact, Neuro grossly intact Psych/Mental Status: Normal Affect, Appropriate Microbiology Past 72 Hours 10/29/19 14:20 Urine, Clean Catch Urine Culture - Final Mixed Gram Positive Organisms Laboratory Results 10/29/19 14:15: Diff Path Review Reviewed 10/30/19 14:45: Sodium 139, Potassium 2.5 L*, Chloride 105, Carbon Dioxide 21.0, Anion Gap 13, BUN 44 H, Creatinine 2.24 H, Estim Creat Clear Calc 16.05, Est GFR (MDRD) Af Amer 29 L, Est GFR (MDRD) Non-Af 24 L, BUN/Creatinine Ratio 19.6, Glucose 88, Calcium 8.5 10/31/19 05:58: WBC 7.7, RBC 3.75 L, Hgb 11.6 L, Hct 34.5 L, MCV 92.0, MCH 30.9, MCHC 33.6, RDW Std Deviation 50.4 H, RDW Coeff of Richard 15.0 H, Plt Count 126 L, MPV 11.8, Immature Gran % (Auto) 0.400, Neut % (Auto) 59.4, Lymph % (Auto) 28.2, [place] % (Auto) 10.7 H, Eos % (Auto) 0.9, Baso % (Auto) 0.4, Absolute Neuts (auto) 4.6, Absolute Lymphs (auto) 2.18, Nucleated RBC % 0 10/31/19 05:58: Sodium 135 L, Potassium 2.8 L, Chloride 105, Carbon Dioxide 19.0 L, Anion Gap 11, BUN 33 H, Creatinine 1.58 H, Estim Creat Clear Calc 22.76, Est GFR (MDRD) Af Amer 43 L, Est GFR (MDRD) Non-Af 36 L, BUN/Creatinine Ratio 20.9 H, Glucose 88, Calcium 7.4 L, Total Bilirubin 0.70, AST 21, ALT 12 L, Alkaline Phosphatase 50, Total Protein 4.6 L, Albumin 2.3 L, Globulin 2.3, Albumin/Globulin Ratio 1.0 Current Medications Acetaminophen (Tylenol) 650 mg PO Q6H PRN PRN PRN Reason: Pain Score 1-10/Temp > 100.7 F Al Hydroxide/Mg Hydroxide (Mylanta Ii) 30 ml PO Q6H PRN PRN PRN Reason: Gastric Burning Albuterol Sulfate (Ventolin Aerosols) 2.5 mg INHALATION Q2H PRN PRN PRN Reason: Shortness of Breath/Wheezing Aspirin (Aspirin, Baby) 81 mg PO DAILY@0800 [facility] Last Admin: 10/31/19 08:25 Dose: 81 mg Documented by: Atorvastatin Calcium (Lipitor) 20 mg PO QHS [facility] Last Admin: 10/30/19 21:25 Dose: 20 mg Documented by: Calamine/Phenol (Calmoseptine Ointment) 1 applic TOPICAL BID [facility]; Protocol Last Admin: 10/31/19 10:34 Dose: 1 applicatio Documented by: Dextrose (D50w Syringe) 0 gm IV X1 PRN; Protocol PRN Reason: Hypoglycemia Glucagon () 1 mg IM .X1 PRN PRN Reason: Hypoglycemia Guaifenesin (Robitussin) 20 ml PO Q4H PRN PRN PRN Reason: COUGH Heparin Sodium (Porcine) (Heparin Na) 5,000 unit SC Q12 [facility] Last Admin: 10/31/19 10:34 Dose: Not Given Documented by: Hydralazine HCl (Apresoline Iv) 10 mg IV Q4H PRN PRN PRN Reason: SBP > 160 Last Admin: 10/29/19 20:48 Dose: 10 mg Documented by: Pantoprazole Sodium 40 mg/ (Sodium Chloride) 110 mls @ 330 mls/hr IV Q12 [facility] Last Infusion: 10/30/19 21:41 Dose: Infused Documented by: Sodium Chloride () 250 mls @ 15 mls/hr IV .[id number] PRN PRN Reason: Saline Flush Last Infusion: 10/30/19 21:47 Dose: 0 mls/hr Documented by: Potassium Chloride () 10 meq in 100 mls @ 100 mls/hr IV BOLUS Q1H [facility] Stop: 10/31/19 12:29 Last Admin: 10/31/19 10:31 Dose: 100 mls/hr Documented by: Sodium Chloride () 1,000 mls @ 75 mls/hr IV .[id number] [facility] Last Admin: 10/31/19 10:27 Dose: 75 mls/hr Documented by: Magnesium Hydroxide (Milk Of Magnesia) 30 ml PO DAILY PRN PRN PRN Reason: Constipation Morphine Sulfate () 2 mg IV Q3H PRN PRN PRN Reason: Pain Score 6-10/10 Nicotine (Nicoderm Cq (Pbkc)) 7 mg TRANSDERM. DAILY [facility] Last Admin: 10/31/19 10:22 Dose: 7 mg Documented by: Nutritional Formula (Lactose Free) (Ensure Clear) 120 ml PO 4X/DAY [facility] Last Admin: 10/31/19 10:22 Dose: 120 ml Documented by: Ondansetron HCl (Zofran) 4 mg IV Q8H PRN PRN PRN Reason: NAUSEA/VOMITING Last Admin: 10/29/19 18:44 Dose: 4 mg Documented by: Oxycodone HCl (Oxyir) 5 mg PO Q4H PRN PRN PRN Reason: Pain Score 4-5/10 Prochlorperazine Edisylate (Compazine Iv) 5 mg IV Q4H PRN PRN PRN Reason: Breakthrough nausea/vomiting Last Admin: 10/30/19 08:30 Dose: 5 mg Documented by: Psyllium Hydrophilic Mucilloid (Metamucil) 1 packet PO DAILY PRN PRN PRN Reason: Constipation Senna/Docusate Sodium (Senokot-S, [place]-Colace) 2 tablet PO BID PRN PRN PRN Reason: Constipation Sodium Chloride () 10 - 40 ml IV UD PRN PRN Reason: SALINE FLUSH Last Admin: 10/29/19 20:51 Dose: 10 ml Documented by: Throat Lozenges (Cepacol Sore Throat Lozenge) 1 lozenge MUCOUS MEM Q2H PRN PRN PRN Reason: SORE THROAT Last Admin: 10/29/19 18:44 Dose: 1 lozenge Documented by: Trazodone HCl (Desyrel) 50 mg PO QHS PRN PRN Reason: INSOMNIA Discharge Activity: Return to Normal Activity Weight Bearing Status: Weight bearing as tolerated Call your doctor if you observe: Fever of 101 or Higher, Shortness of breath, Dizziness, Fainting spells, Chest pain, Increased palpitations (irregular heartbeat), Uncontrolled pain Home Medications: Medications to take at Discharge Aspirin [Aspirin, Baby] 81 mg PO DAILY@0800 #90 tab.chew 10/31/19 Atorvastatin Calcium [Lipitor] 20 mg PO QHS #90 tab 10/31/19 Pantoprazole Sodium [Protonix] 40 mg PO DAILY #90 tab 10/31/19 Potassium Chloride 20 meq PO DAILY 7 Days #7 liquid 10/31/19 Following Prescrptions Were Given to Patient: Aspirin [Aspirin, Baby] 81 mg PO DAILY@0800 #90 tab.chew Transmission Status: Received by [facility] #30 Atorvastatin Calcium [Lipitor] 20 mg PO QHS #90 tab Transmission Status: Received by [facility] #30 Potassium Chloride 20 meq PO DAILY 7 Days #7 liquid Transmission Status: Received by [facility]30 Pantoprazole Sodium [Protonix] 40 mg PO DAILY #90 tab Transmission Status: Received by [facility]30 Primary Care Physician: Care Physician,No Primary [Primary Care Provider] - Please follow up with your Primary Care Physician in: 1-2 weeks. Please Follow Up With: Guerrero Duran MD When: 2--4 weeks. You may need a referral from your PCP Disposition: Home Minutes spent on discharge:: 32 Patient Condition:: Stable Medical Necessity - Tobacco Use Smoking Status: Current every day smoker Tobacco Use: Cigarettes Meaningful Use Info Meaningful Use Diagnoses (Choose all that apply): None applicable Inpatient E&M: 24182 Disch Hosp
--- NOTE | 2019-11-01 14:32 | CASEMGMT ---
RN CM Discharge Follow-up Phone Call: SHAE: Isaac Strata: 3 Call Date: 11/01/19 Discharge Date: 10/31/19 Time of Call: 1433 Duration: 1 min Admitting Diagnosis: N/V, Hypokalemia RN LACIE attempted to complete follow-up phone called after recent hospitalization. No answer, voice message left with return contact information.
== END 2019-10-31 16:35 | disposition home or self-care (01) | DRG 391 ==
LOC: ED 16:16 → MS3 16:56
PROVIDERS: Physician Assistant; Surgery; Admitting Provider Family Medicine; Emergency Provider Emergency Medicine; Visit Provider Hospitalist
PROC: 0DJ08ZZ Inspection of Upper Intestinal Tract, Via Natural or Artificial Opening Endoscopic (ICD-10-PCS; CPT 43235; principal; 2019-10-30 14:25)
DX: K22.2 Esophageal obstruction (principal); E43 Unspecified severe protein-calorie malnutrition; I69.351 Hemiplegia and hemiparesis following cerebral infarction affecting right dominant side; Z68.1 Body mass index [BMI] 19.9 or less, adult; N17.9 Acute kidney failure, unspecified; E86.0 Dehydration; E87.6 Hypokalemia; I69.311 Memory deficit following cerebral infarction; F17.210 Nicotine dependence, cigarettes, uncomplicated; R13.10 Dysphagia, unspecified; K21.9 Gastro-esophageal reflux disease without esophagitis; I10 Essential (primary) hypertension; F32.9 Major depressive disorder, single episode, unspecified; E78.5 Hyperlipidemia, unspecified; T18.128A Food in esophagus causing other injury, initial encounter
CPT/HCPCS: 36415; 74176; 76705; 80048; 80053; 81001; 83690; 83735; 84100; 85025; 87086; 87088; 93005; 97161; 97166; 97802; 99251; 99285; 99406; J7030; J7040; J7050; A4216; G0463; J2405

== ENCOUNTER 2019-12-16 19:22 | Emergency (ER) | payer MEDICARE, MEDICAID, SELFPAY ==
[2019-10-30 10:14] VITALS: BMI 14.5
[2019-12-16 19:23] VITALS: BP 119/83; PULSE 73; RESP 19; TEMP 36.6; O2SAT 95; BMI 13.9
--- NOTE | 2019-12-16 19:49 | ED.DCSUM_ITS ---
- ER Visit Summary Date of Service: 12/16/19 Chief Complaint: Abdominal pain, vomiting, diarrhea History of Present Illness: The patient is a 59 F who goes to the [facility]. She is a poor informant. She reports that she has abdominal pain that began approximately 3 weeks ago. Says sharp pain is 10 out of 10 severity. Is worsened by movement relieved by nothing. She reports that she is been vomiting multiple times a day for the past 2 weeks. No blood or emesis. She reports she is having 4-5 episodes of diarrhea today. No blood in her stools or black tarry stools. She also complains of dysuria for the past week. Patient complains that my whole body hurts. Physical Examination: Vitals: Stable. Afebrile. General: Well-nourished and well-developed. Head: Normocephalic atraumatic. Neck: Supple, no lymphadenopathy. No JVD. Nontender. Cardiovascular: Regular rate and rhythm. No murmurs. Respiratory: No respiratory distress. Clear to auscultation bilaterally. Abdominal: Soft, nontender, nondistended, normal bowel sounds. No guarding, rebound, or peritoneal signs. Back: Mild diffuse tenderness palpation over her entire spine. No point tenderness. Extremities: Nontender, no edema. Skin: Normal color, no rash. Neurologic: Alert and oriented ?3. Cranial nerves II through XII are intact. Normal strength and sensation. Psych: Normal affect. Test Results: EKG is sinus tach at [address] changes. CBC shows a white count of 12.7 with hematocrit of 36.4, segmented neutrophils 72, and lymphocytes of 17. Chem-7 shows a potassium of 1.2 with a chloride of 87 and CO2 of 40. Creatinine is 1.05. Magnesium is 1.2. LFTs show total protein of 5.5 and albumin of 2.6. Total bili is 2.1. AST is 75. Lipase is 22. Alcohol is negative. Troponin is 0.542. Emergency Department Course and Treatment: Patient had an IV placed. She was initially given morphine and Zofran IV. Upon arrival her heart rate was in the 70s. Shortly thereafter she became tachycardic and her heart rate is in the 130s. She was given a dose potassium p.o. She was given potassium and magnesium IV. I reviewed the patient's history. She was transferred to [facility] in June [address] Rudd and at that time had an esophageal dilation for an inner diameter of 4 mm. She had a endoscopy in October of this year by Dr. Watt here which shows her esophageal diameter to be 8 mm. Treatment Plan: Patient was discussed with Dr. Michaels. Given the vomiting, severe hypokalemia, and esophageal stricture he asked that she be transferred to a tertiary care center. Patient was discussed with [facility]. She will be transferred for further evaluation and treatment. Disposition: Transferred in serious condition. Impression: 1. Vomiting/diarrhea. 2. Severe hypokalemia. 3. Hypomagnesemia. 4. Elevated troponin. 5. Critical care time 33 minutes. This note was generated with [employer] dictation software. It may contain incorrect words, spelling, and punctuation that were not noted in review of the chart prior to signing ED Disposition - Plan for ED Patient: Referrals: Care Physician,No Primary [Primary Care Provider] -
[2019-12-16] MEDS: Morphine 4 MG/ML Syringe IV (20:03)
[2019-12-16] MEDS: Ondansetron 4 MG/2 ML Vial IV (20:03)
[2019-12-16] MEDS: 0.9% Normal Saline 1,000 ML 1000 ML IV (20:03)
[2019-12-16 20:05] LABS: Absolute Lymphocyte Count 2.17 X10^3/uL (0.83-4.51); Absolute Neutrophil Count 9.2 X10^3/uL (2.0-7.7); Basophil# 0.04 X10^3/uL; Basophil% 0.3 % (0-1); Eosinophil# 0.01 X10^3/uL; Eosinophils% 0.1 % (0-5); Hematocrit 36.4 % (37-47); Lymphocyte # 2.17 X10^3/ul (4.0); Lymphocyte % 17.1 % (19-41); Mean Corp Hgb Conc 35.7 g/dL (32-36); Mean Corpuscular Hgb 31.2 pg (27.0-32.0); Mean Corpuscular Volume 87.3 fL (81-99); Mean Platelet Vol. 11.1 fl (6.2-12.0); Monocyte# 1.25 X10^3/uL; Monocyte% 9.9 % (0-10); NRBC Flagged by Analyzer 0 % (0-5); Neutrophil # 9.15 X10^3/uL (2.7-7.7); Neutrophil % 72.2 % (47-70); Platelet Count 241 K/mm3 (150-450); RBC Distribution Width CV 15.5 % (11.6-14.6); RBC Distribution Width SD 49.6 fl (35.1-43.9); Red Blood Count 4.17 M/mm3 (4.2-5.4); White Blood Count 12.7 K/mm3 (4.4-11.0)
[2019-12-16 20:32] LABS: ALB/GLOB Ratio 0.9 RATIO (0.9-2.4); AST(SGOT) 75 U/L (15-37); Alanine Aminotransfer ALT/SGPT 40 U/L (13-56); Albumin, Serum 2.6 g/dL (3.2-5.0); Alkaline Phosphatase 96 U/L (45-117); Anion Gap 11 (5-15); BUN 9 mg/dL (7-18); BUN/Creat Ratio 8.6 RATIO (10-20); Calcium,Total 8.1 mg/dL (8.5-10.1); Chloride 87 mmol/L (98-107); Creatinine, Serum 1.05 mg/dL (0.55-1.02); EST Glomerular Filtration Rate 57 mL/min (>60); Est Glom Filt Rate - Afr Amer 69 mL/min (>60); Estimated Creatinine Clearance 30.95 ml/min; Globulin 2.9 g/dL (2.2-4.2); Glucose 104 mg/dL (74-106); Lipase 22 U/L (73-393); Potassium 1.2 mmol/L (3.5-5.1); Protein, Total 5.5 g/dL (6.4-8.2); Sodium Level 138 mmol/L (136-145)
[2019-12-16 20:55] LABS: Alcohol, Blood (Medical)-Serum < 3.0 mg/dL
[2019-12-16 20:55] LABS: Magnesium 1.2 mg/dL (1.6-2.6)
--- NOTE | 2019-12-16 21:09 | EKG12_ITS ---
Test Reason : NAUSEA/VOMITING Blood Pressure : / mmHG Vent. Rate : 130 BPM Atrial Rate : 130 BPM P-R Int : 224 ms QRS Dur : 096 ms QT Int : 224 ms P-R-T Axes : 073 068 252 degrees QTc Int : 329 ms Sinus tachycardia with 1st degree A-V block Right atrial enlargement Marked ST abnormality, possible inferior subendocardial injury Marked ST abnormality, possible anterior subendocardial injury Abnormal ECG Confirmed by CYNDY SAHU, LANCE ([id number]), editor farm journal ARTHUR MARTINEZ ([id number]) on 12/17/2019 3:10:00 PM Referred By: GABBIE Confirmed By:LANCE NAYLOR MD
[2019-12-16 21:11] VITALS: BP 110/92; PULSE 134; RESP 18; O2SAT 97
--- NOTE | 2019-12-16 21:22 | ED.RN ---
[facility] CALLED, HOSPITALIST IS WAITING FOR THE EKG AND TROPONIN RESULTS FOR THIS TRANSFER
[2019-12-16 21:49] VITALS: BP 127/93; PULSE 103; RESP 20; O2SAT 97
--- NOTE | 2019-12-16 22:36 | EKG12_ITS ---
Test Reason : REPEAT EKG Blood Pressure : / mmHG Vent. Rate : 081 BPM Atrial Rate : 081 BPM P-R Int : 136 ms QRS Dur : 088 ms QT Int : 440 ms P-R-T Axes : 067 068 248 degrees QTc Int : 511 ms Normal sinus rhythm Possible Left atrial enlargement Marked ST abnormality, possible inferior subendocardial injury Marked ST abnormality, possible anterolateral subendocardial injury Prolonged QT Abnormal ECG Confirmed by CYNDY SAHU, LANCE ([id number]), graphic editor ARTHUR MARTINEZ ([id number]) on 12/17/2019 3:10:14 PM Referred By: GABBIE Confirmed By:LANCE NAYLOR MD
[2019-12-16 23:19] VITALS: BP 109/59; PULSE 77; RESP 15; O2SAT 95
== END 2019-12-16 23:20 | disposition home or self-care (01) ==
LOC: ED 20:05
PROVIDERS: Emergency Provider Emergency Medicine
DX: R11.2 Nausea with vomiting, unspecified (principal); R19.7 Diarrhea, unspecified; E87.6 Hypokalemia; E83.42 Hypomagnesemia; R79.89 Other specified abnormal findings of blood chemistry; R30.0 Dysuria; K22.2 Esophageal obstruction; I10 Essential (primary) hypertension; J44.9 Chronic obstructive pulmonary disease, unspecified; R00.0 Tachycardia, unspecified; Z79.82 Long term (current) use of aspirin; Z86.73 Personal history of transient ischemic attack (TIA), and cerebral infarction without residual deficits
CPT/HCPCS: 80053; 80320; 83690; 83735; 84484; 85025; 93005; 96361; 96365; 96366; 96375; 99285; J7030; A4216; G0480; J2405

== ENCOUNTER 2019-12-22 14:36 | Emergency (ER) | payer MEDICARE, MEDICAID, SELFPAY ==
[2019-12-22 14:37] VITALS: BP 116/80; PULSE 95; RESP 15; TEMP 36.8; O2SAT 100; BMI 16.6
--- NOTE | 2019-12-22 15:01 | EKG12_ITS ---
Test Reason : Blood Pressure : / mmHG Vent. Rate : 089 BPM Atrial Rate : 089 BPM P-R Int : 130 ms QRS Dur : 116 ms QT Int : 344 ms P-R-T Axes : 035 051 168 degrees QTc Int : 418 ms Sinus rhythm with Premature atrial complexes Possible Left atrial enlargement ST & T wave abnormality, consider lateral ischemia Abnormal ECG Confirmed by ASHUTOSH SAHU, PERRI ([id number]), news assignment editor ARTHUR MARTINEZ ([id number]) on 12/25/2019 3:22:24 PM Referred By: GOPAL Confirmed By:PERRI BOYKIN MD
[2019-12-22 15:23] LABS: Absolute Lymphocyte Count 1.58 X10^3/uL (0.83-4.51); Absolute Neutrophil Count 8.4 X10^3/uL (2.0-7.7); Basophil# 0.03 X10^3/uL; Basophil% 0.3 % (0-1); Eosinophil# 0.05 X10^3/uL; Eosinophils% 0.5 % (0-5); Hematocrit 29.4 % (37-47); Lymphocyte # 1.58 X10^3/ul (4.0); Lymphocyte % 14.5 % (19-41); Mean Corpuscular Hgb 31.3 pg (27.0-32.0); Mean Corpuscular Volume 91.9 fL (81-99); Mean Platelet Vol. 11.1 fl (6.2-12.0); Monocyte# 0.83 X10^3/uL; Monocyte% 7.6 % (0-10); NRBC Flagged by Analyzer 0 % (0-5); Neutrophil # 8.38 X10^3/uL (2.7-7.7); Neutrophil % 76.7 % (47-70); Platelet Count 263 K/mm3 (150-450); RBC Distribution Width CV 17.5 % (11.6-14.6); RBC Distribution Width SD 58.4 fl (35.1-43.9); White Blood Count 10.9 K/mm3 (4.4-11.0)
[2019-12-22] MEDS: Morphine 4 MG/ML Syringe IV (15:26)
[2019-12-22] MEDS: Furosemide 20 MG/2 ML VIAL IV (15:26)
[2019-12-22] MEDS: Ondansetron 4 MG/2 ML Vial IV (15:27)
[2019-12-22 15:41] LABS: ALB/GLOB Ratio 0.7 RATIO (0.9-2.4); AST(SGOT) 16 U/L (15-37); Alanine Aminotransfer ALT/SGPT 29 U/L (13-56); Alkaline Phosphatase 77 U/L (45-117); Anion Gap 6 (5-15); BUN 11 mg/dL (7-18); BUN/Creat Ratio 12.1 RATIO (10-20); Calcium,Total 8.4 mg/dL (8.5-10.1); Chloride 105 mmol/L (98-107); Creatinine, Serum 0.91 mg/dL (0.55-1.02); EST Glomerular Filtration Rate 67 mL/min (>60); Est Glom Filt Rate - Afr Amer 81 mL/min (>60); Estimated Creatinine Clearance 45.36 ml/min; Globulin 2.8 g/dL (2.2-4.2); Glucose 77 mg/dL (74-106); Protein, Total 4.8 g/dL (6.4-8.2); Sodium Level 138 mmol/L (136-145)
[2019-12-22 15:44] LABS: Mucous, Urine 0 SEEN /hpf (<or=2+); Red Blood Cells-Urine 0 SEEN /hpf (0-5)
[2019-12-22 15:44] LABS: BNP,B-Type NATRIURETIC PEPTIDE 202.1 pg/mL (0-100)
[2019-12-22 15:47] LABS: Color, Urine Yellow (Yellow); Glucose, Dipstick Normal (Normal); Ketone-Dipstick 5 mg/dl (Negative); Leukocyte Esterase-Dipstick 500 /ul (Negative); Nitrite-Dipstick Positive (Negative); Occult Blood-Urine 150 /ul (Negative); Protein-Dipstick 30 mg/dl (Negative); Specific Gravity, Urine 1.015 (1.002-1.030); Urine Bilirubin Dipstick Negative (Negative); Urine Clarity Cloudy (Clear); Urine Urobilinogen Normal (Normal)
[2019-12-22 16:13] LABS: Bacteria 2+ /hpf (None Seen); Squamous Epithelial Cells - UA 5-10 SEEN /hpf (5-10); White Blood Cells >100 SEEN /hpf (0-5)
[2019-12-22 16:14] LABS: Transitional Epithelial - Ur 0-5 SEEN /hpf (0-5)
[2019-12-22] MEDS: Ceftriaxone 1 GM/50 ML BAG IV (17:00)
--- NOTE | 2019-12-22 18:59 | ED.RN ---
lab was called again to come and draw lactic acid.
[2019-12-22 19:00] VITALS: BP 121/88; PULSE 68; RESP 10; O2SAT 100
--- NOTE | 2019-12-22 20:04 | ED.DCSUM_ITS ---
- ER Visit Summary Date of Service: 12/22/19 Chief Complaint: Swelling History of Present Illness: The patient is a 59 F who cannot remember her primary care physician's name. She was discharged from [facility] yesterday after being admitted for esophageal dilation. She does not remember the name of the doctor that did the dilation, but reports that it was dilated to 11 mm. She reports that she has swelling that began yesterday. Patient denies any chest pain or shortness of breath. She has never had anything like this before. Review of systems patient reports she has been nauseated and vomited once. No blood in her emesis. She has had 5 episodes of diarrhea today. No blood in her stools or black tarry stools. She has dysuria that began yesterday. Physical Examination: Vitals: 98.2, 116/80, 95, 15, 100% room air which is not hypoxic. General: Well-nourished and well-developed. Head: Normocephalic atraumatic. Neck: Supple, no lymphadenopathy. No JVD. Nontender. Cardiovascular: Regular rate and rhythm. No murmurs. Respiratory: No respiratory distress. Clear to auscultation bilaterally. Abdominal: Soft, nontender, nondistended, normal bowel sounds. No guarding, rebound, or peritoneal signs. Back: Nontender. Extremities: Nontender, 3+ pitting edema lower extremities bilaterally. Skin: Contusion to the left forearm from an IV stick. Is not tender to palpation., no rash. Neurologic: Alert and oriented ?3. Cranial nerves II through XII are intact. Normal strength and sensation. Psych: Normal affect. Test Results: EKG is sinus at 89 with inferolateral T wave inversions. This is unchanged from prior. Troponin is 0.023. This is lower than the 0.542 it was 6 days ago. UA does show UTI with greater than 100 whites and 2+ bacteria. LFTs show a total protein of 4.8 and albumin of 2.0. Chem-7 shows a potassium of 3.0 which is significantly improved from her potassium of 1.26 days ago. Calcium is 8.4. CBC shows an H&H of 10.0 29.4, segmented for 77, lymphocytes 15. Emergency Department Course and Treatment: Patient had an IV placed. She was given a dose of Lasix IV. She was given potassium p.o. Her urine was sent for culture and she was given Rocephin IV. She was given morphine and Zofran IV. She is resting comfortably. She has diuresed well in the emergency department. I suspect that the patient's swelling is from IV fluids that she received while she was an inpatient. Patient had no diarrhea while here. She tolerated p.o. without difficulty. She would like to go home. Treatment Plan: Patient will be discharged with potassium, 20 mg of Lasix a day for 5 days, Keflex, Zofran, and [place]. Instructed to follow-up with her primary care physician in 3 to 5 days for another exam. Return to the emergency department for any worsening symptoms. Disposition: To home in improved and stable condition. Impression: 1. Hypokalemia. 2. UTI. 3. Diarrhea. 4. Peripheral edema. This note was generated with [employer] dictation software. It may contain incorrect words, spelling, and punctuation that were not noted in review of the chart prior to signing ED Disposition - Plan for ED Patient: Disposition: Home or Assisted Living Instructions: Understanding Urinary Tract Infections (UTIs), Hypokalemia Prescriptions: Cephalexin [Keflex] 500 mg PO Q12 #14 cap Prescription Printed Furosemide [Lasix] 20 mg PO DAILY #5 tab Prescription Printed Oxycodone HCl/Acetaminophen [Percocet 5/325] 1 tab PO Q6H PRN PRN 3 Days #12 tab PRN Reason: Pain Prescription Printed Potassium Cloride Effervescent [Potassium Chl 25 Meq Eff (For Liquid)] 25 meq PO BID #20 tablet.eff Prescription Printed Ondansetron [Zofran Odt] 4 mg PO Q8H PRN PRN #10 tab PRN Reason: Nausea Prescription Printed Referrals: Doctor,Your [STAFF PHYSICIAN] - 3-5 Days
[2019-12-22] MEDS: oxyCODONE 5 MG Tablet PO (20:40)
--- NOTE | 2019-12-22 21:05 | ED.RN ---
called sae per pt request toupdate her and get a ride home for the pt.
--- NOTE | 2019-12-22 21:06 | ED.RN ---
sae phone number [phone]
[2019-12-22 21:11] VITALS: BP 132/86; PULSE 86; RESP 17; O2SAT 96
== END 2019-12-22 21:18 | disposition home or self-care (01) ==
LOC: ED 15:38
PROVIDERS: Emergency Provider Emergency Medicine
DX: E87.6 Hypokalemia (principal); N39.0 Urinary tract infection, site not specified; R19.7 Diarrhea, unspecified; R60.0 Localized edema; R11.2 Nausea with vomiting, unspecified; I10 Essential (primary) hypertension; Z86.73 Personal history of transient ischemic attack (TIA), and cerebral infarction without residual deficits; Z72.0 Tobacco use; Z79.82 Long term (current) use of aspirin; Z79.899 Other long term (current) drug therapy
CPT/HCPCS: 80053; 81001; 83880; 84484; 85025; 87086; 87088; 87186; 93005; 96365; 96375; 99285; J7040; A4216; J1940; J2405

== ENCOUNTER 2020-02-01 22:31 | Inpatient (IN) | payer MEDICARE, MEDICAID, SELFPAY ==
[2020-02-01 22:32] VITALS: BP 202/128; PULSE 98; RESP 16; TEMP 36.6; O2SAT 100
--- NOTE | 2020-02-01 22:40 | CT_ITS ---
HISTORY: ABDOMEN PAIN,NAUSEA,VOMITING AND DIARRHEA X 2 DAYS,WEAKNESS,ELEVATED BPHX:CVAMHLD,HTN,COPD,GERD,HYPOTHYROID EXAMINATION: CT Abdomen And Pelvis W/O Contrast Injection TECHNIQUE: Helically acquired images were obtained of the abdomen and pelvis without oral or IV contrast as per renal stone protocol. A radiation dose optimization technique was used for this scan. IV Contrast dosage and agent: None Oral contrast: None. COMPARISON: 10/29/2019 FINDINGS: Lower thorax: Hyperinflation. No pleural effusion or pericardial effusion. Moderately large hiatal hernia, unchanged. No radiopaque gallstones and no biliary dilatation. Tiny perihepatic ascites, anteriorly. The liver is normal in size and shows widespread fatty infiltration. Previously seen small hypodense nodules or cysts are not identified. Lateral segment left hepatic lobe 1 cm focal parenchymal calcification, unchanged. Normal spleen. 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 Normal pancreas. Both kidneys are normal in position. The left kidney shows matching and chronic appearing cortical scarring at the upper pole. Central renal vascular calcifications. No hydronephrosis or hydroureter. The adrenal glands are not enlarged. Abdominal aorta is diffusely atherosclerotic and mildly ectatic. The retroperitoneal lymph node enlargement. GI tract: No obstruction. Constipation pattern with large content fecal stool. Sigmoid diverticulosis. Long segment mild mural thickening of the colon, more so at the right colon and this may be reactive. Pelvis: Anteverted uterus which is normal in size. Normal urinary bladder. No free fluid. Bones: No acute osseous abnormality. CT/Abdomen/Pelvis without Cont IMPRESSION: 1. Widespread fatty infiltration of the liver and perihepatic tiny ascites in keeping with hepatocellular disease. No splenomegaly. 2. Constipation pattern. Generalized mild mural thickening of the colon, more so at the right hemicolon but without definite CT findings of colitis. If there is hypoproteinemia, bowel wall thickening may be seen in this setting. 3. Left renal mild atrophy and mild scarring. No hydronephrosis. 4. Chronic findings include moderate hiatal hernia and atherosclerotic calcifications. Individualized dose optimization techniques were used for this CT. at 0049 Reported and signed by: Yosi Tavares MD Electronically Signed: Yosi Tavares, at 0:48 EDT Tel , Service support ,
[2020-02-01] MEDS: 0.9% Normal Saline 1,000 ML 1000 ML IV (22:56)
[2020-02-01] MEDS: Ondansetron 4 MG/2 ML Vial IV (22:56)
[2020-02-01 23:42] VITALS: BP 163/130; PULSE 93; RESP 16; O2SAT 100
[2020-02-02] VITALS (19 sets, daily range): BP systolic 129–194; BP diastolic 75–145; PULSE 76–101; RESP 15–18; TEMP 36.3–37.1; O2SAT 95–100; BMI 16.5
[2020-02-02 00:02] LABS: Mucous, Urine 0 SEEN /hpf (<or=2+); Red Blood Cells-Urine 0 SEEN /hpf (0-5)
[2020-02-02 00:25] LABS: Color, Urine Yellow (Yellow); Glucose, Dipstick Normal (Normal); Ketone-Dipstick Negative (Negative); Leukocyte Esterase-Dipstick 25 /ul (Negative); Nitrite-Dipstick Positive (Negative); Occult Blood-Urine 10 /ul (Negative); Protein-Dipstick Negative (Negative); Urine Bilirubin Dipstick Negative (Negative); Urine Clarity Sl. Cloudy (Clear); Urine Urobilinogen Normal (Normal); Urine pH 6.5 (5.0 - 8.0)
[2020-02-02 00:36] LABS: Bacteria 2+ /hpf (None Seen); Squamous Epithelial Cells - UA 0-5 SEEN /hpf (5-10); White Blood Cells 0-5 SEEN /hpf (0-5)
[2020-02-02 00:47] LABS: Absolute Lymphocyte Count 1.36 X10^3/uL (0.83-4.51); Absolute Neutrophil Count 4.2 X10^3/uL (2.0-7.7); Basophil# 0.04 X10^3/uL; Basophil% 0.7 % (0-1); Eosinophil# 0.01 X10^3/uL; Eosinophils% 0.2 % (0-5); Hematocrit 31.5 % (37-47); Hemoglobin 10.7 g/dL (12.0-15.0); Lymphocyte # 1.36 X10^3/ul (4.0); Lymphocyte % 22.3 % (19-41); Mean Corpuscular Hgb 34.5 pg (27.0-32.0); Mean Corpuscular Volume 101.6 fL (81-99); Mean Platelet Vol. 9.2 fl (6.2-12.0); Monocyte# 0.51 X10^3/uL; Monocyte% 8.4 % (0-10); NRBC Flagged by Analyzer 0 % (0-5); Neutrophil # 4.15 X10^3/uL (2.7-7.7); Neutrophil % 67.9 % (47-70); Platelet Count 202 K/mm3 (150-450); RBC Distribution Width CV 16.2 % (11.6-14.6); RBC Distribution Width SD 60.2 fl (35.1-43.9); White Blood Count 6.1 K/mm3 (4.4-11.0)
[2020-02-02 01:01] LABS: Prothrombin Time (Protime)PT. 12.8 SECONDS (11.7-14.9)
[2020-02-02 01:04] LABS: AST(SGOT) 56 U/L (15-37); Alanine Aminotransfer ALT/SGPT 27 U/L (13-56); Albumin, Serum 2.3 g/dL (3.2-5.0); Alkaline Phosphatase 115 U/L (45-117); Anion Gap 7 (5-15); BUN 11 mg/dL (7-18); BUN/Creat Ratio 18.2 RATIO (10-20); Bilirubin, Direct 0.24 mg/dL (0.00-0.30); Calcium,Total 7.3 mg/dL (8.5-10.1); Chloride 105 mmol/L (98-107); EST Glomerular Filtration Rate 108 mL/min (>60); Est Glom Filt Rate - Afr Amer 131 mL/min (>60); Estimated Creatinine Clearance 77.12 ml/min; Globulin 3.2 g/dL (2.2-4.2); Glucose 70 mg/dL (74-106); Lipase 100 U/L (73-393); Potassium 3.5 mmol/L (3.5-5.1); Protein, Total 5.5 g/dL (6.4-8.2); Sodium Level 140 mmol/L (136-145)
--- NOTE | 2020-02-02 01:33 | PCM.HP.STD ---
Problem List (1) Cystitis Status: Acute (2) EtOH dependence Status: Chronic (3) Dysphagia Status: Chronic Qualifiers: Dysphagia type: unspecified Qualified Code(s): R13.10 - Dysphagia, unspecified (4) Esophageal stricture Status: Chronic (5) History of CVA (cerebrovascular accident) Status: Chronic (6) HLD (hyperlipidemia) Status: Chronic Qualifiers: Hyperlipidemia type: unspecified Qualified Code(s): E78.5 - Hyperlipidemia, unspecified (7) Gastroesophageal reflux disease Status: Chronic Qualifiers: Esophagitis presence: esophagitis presence not specified Qualified Code(s): K21.9 - Gastro-esophageal reflux disease without esophagitis (8) Depression Status: Chronic Qualifiers: Depression Type: unspecified Qualified Code(s): F32.9 - Major depressive disorder, single episode, unspecified (9) Benign essential HTN Status: Chronic (10) Hypertensive urgency Status: Acute History of Present Illness Date of Admission: 02/02/20 Chief Complaint: weakness The patient is a 59 year old F with a significant history of esophageal stricture status post 2 esophageal dilatation and surgery; alcoholism; and hypertension who presents to the emergency department with weakness. Reportedly patient was too weak to stand up. She called her POA and patient was brought to the hospital. Reportedly when her POA got to her house patient was covered in stool. Associated with her symptoms is malaise; nausea; vomiting and diarrhea. Patient and her POA attributes her nausea and vomiting to esophageal stricture. Her nausea and vomiting has been going on for about 6 months but then it has worsened in the last 2 weeks. Her nausea and vomiting improved after esophageal dilatation about 1 year ago. She reports diarrhea ongoing for about 3 weeks. Further she has abdominal pain. Urinalysis at the emergency department was abnormal. Patient complained of pain at her 'tailbone why lying on the emergency department bed. Past Medical History Past Medical History (Chronic Problems): Chronic Problems EtOH dependence (Chronic) Dysphagia (Chronic) Esophageal stricture (Chronic) History of CVA (cerebrovascular accident) (Chronic) HLD (hyperlipidemia) (Chronic) Gastroesophageal reflux disease (Chronic) Depression (Chronic) Benign essential HTN (Chronic) Allergies No Known Allergies Allergy (Verified 12/16/19 19:22) Home Medications: Ambulatory Orders Medication Instructions Recorded Aspirin [Aspirin, Baby] 81 mg PO DAILY@0800 #90 tab.chew 03/25/20 Cephalexin [Keflex] 500 mg PO Q12 #14 cap 12/22/19 Furosemide [Lasix] 20 mg PO DAILY #5 tab 12/22/19 Ondansetron [Zofran Odt] 4 mg PO Q8H PRN PRN #10 tab 12/22/19 Potassium Cloride Effervescent 25 meq PO BID #20 tablet.eff 12/22/19 [Potassium Chl 25 Meq Eff (For Liquid)] Surgical History: - - Thyroid cyst surgery, rib removal, tonsillectomy, prior esophageal dilations. 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 Musa Navarrete MD) Brother Alcoholism Father CVA (cerebral vascular accident) History Items: - - Patient states she does not know any of her maternal family history as her mother when she was 5 years old but she denies any history of heart disease, diabetes, cancer, unclear etiology for . Paternal Family History: Family History (Last Reviewed 02/02/20 @ 03:[address] Musa Navarrete MD) Brother Alcoholism Father CVA (cerebral vascular accident) History Items: Stroke Review of Systems Constitutional: Reports: Anorexia, Malaise, Weakness, Fatigue. Denies: Chills, Fever, Weight Change HEENT: Denies: Head Aches, Sinus Congestion, Sinus Drainage Cardiovascular: Denies: Chest Pain, Palpitations Respiratory: Denies: Cough, Shortness of breath at rest, Sputum production Gastrointestinal: Reports: Abdominal Pain, Nausea, Vomiting Genitourinary: Denies: Dysuria Musculoskeletal: Denies: Joint Pain, Joint Tenderness Skin: Denies: Rash, Wounds Neurological: Denies: Numbness, Tingling, Focal weakness Psychiatric: Denies: Anxiety, Depression, Homicidal Ideations, Suicidal Ideations Hematologic/ Lymphatic: Denies: Easy Bruising, Easy Bleeding VTE Information - Inpt Only VTE Present on Admission: No VTE Mechan Device Prophylaxis: None VTE Pharm Prophylaxis ordered?: Yes Patient Problems: Active and Suspected Problems Cystitis (Acute) Hypertensive urgency (Acute) - Physical Exam Vitals/I&O's: Vital Signs Temp Pulse Resp BP Pulse Ox 97.8 F 86 16 179/145 H 99 02/01/20 22:32 02/02/20 00:30 02/02/20 00:30 02/02/20 00:30 02/02/20 00:30 Oxygen Delivery Method Room Air Weight: 48.1 kg Body Mass Index (BMI) 20.0 General: Alert, Oriented x3, Cooperative HEENT: Atraumatic, PERRLA, EOMI, Normocephalic Neck: Supple, No JVD, Negative Carotid Bruits Lungs: Clear to auscultation, Normal air movement, No rhonchi, No wheeze, No rales Cardiovascular: Regular rate, No murmurs Abdomen: Bowel Sounds Present, Soft, Non Tender Extremities: No edema, Capillary Refill Less than 3 Seconds Skin: No rashes, No breakdown Musculoskeletal: No Tenderness to Palpation of Joints or Extremities Neurological: Cranial nerves II-XII grossly intact Psych/Mental Status: Normal Affect, Appropriate Laboratory Results 02/01/20 23:50: Urine Color Yellow, Urine Clarity Sl. Cloudy, Urine pH 6.5, Ur Specific [place] 1.010, Urine Protein Negative, Urine Glucose (UA) Normal, Urine Ketones Negative, Urine Occult Blood 10 H, Urine Nitrite Positive H, Urine Bilirubin Negative, Urine Urobilinogen Normal, Ur Leukocyte Esterase 25 H, Urine RBC 0 SEEN, Urine WBC 0-5 SEEN, Ur Squamous Epith Cells 0-5 SEEN, Urine Bacteria 2+, Urine Mucus 0 SEEN 02/02/20 00:30: WBC 6.1, RBC 3.10 L, Hgb 10.7 L, Hct 31.5 L, MCV 101.6 H, MCH 34.5 H, MCHC 34.0, RDW Std Deviation 60.2 H, RDW Coeff of Richard 16.2 H, Plt Count 202, MPV 9.2, Immature Gran % (Auto) 0.500, Neut % (Auto) 67.9, Lymph % (Auto) 22.3, Wallace % (Auto) 8.4, Eos % (Auto) 0.2, Baso % (Auto) 0.7, Absolute Neuts (auto) 4.2, Absolute Lymphs (auto) 1.36, Nucleated RBC % 0 02/02/20 00:30: PT 12.8, INR 1.0 02/02/20 00:30: Sodium 140, Potassium 3.5, Chloride 105, Carbon Dioxide 28.0, Anion Gap 7, BUN 11, Creatinine 0.60, Estim Creat Clear Calc 77.12, Est GFR (MDRD) Af Amer 131, Est GFR (MDRD) Non-Af 108, BUN/Creatinine Ratio 18.2, Glucose 70 L, Calcium 7.3 L, Total Bilirubin 0.50, Direct Bilirubin 0.24, AST 56 H, ALT 27, Alkaline Phosphatase 115, Total Protein 5.5 L, Albumin 2.3 L, Globulin 3.2, Lipase 100 02/02/20 00:30: Ethyl Alcohol 216.0 02/02/20 00:30: Lactic Acid Pending Assessment/Plan All Active Problems Cystitis (Acute) Hypertensive urgency (Acute) The patient is a 59 year old F with a significant history of esophageal stricture status post 2 esophageal dilatation and surgery; alcoholism; and hypertension who presents at the emergency department with weakness; abdominal pain; malaise; nausea; vomiting and diarrhea; and with abnormal urinalysis Acute cystitis Review of emergency department labs showed positive nitrites. Leukocyte Estrace was 25 bacteria was 2+. Received ceftriaxone the emergency department Ceftriaxone IV ordered Urine culture ordered. Hypertensive urgency Patient blood pressure 202/128 at the [facility] emergency department. Start on metoprolol; clonidine patch; and clonidine p.o. as needed for concomitant alcohol use disorder. Generalized weakness Likely secondary to alcoholism PT and OT to work with patient. Acute gastroenteritis Stool for O&P ordered. Enteric pathogen panel ordered. Received normal saline hydration the emergency department. Gentle normal saline IV hydration ordered. Chronic alcohol disorder Start patient on phenobarbital and adjunctive withdrawal medications. Start on metoprolol for concomitant hypertension. Catapres patch placed. PRN Catapres for elevated blood pressure. Generalized weakness. Likely secondary chronic alcohol use; cystitis and diarrhea. Treatment as above. PT and OT to work with patient. Reportedly appeal was considering residential placement. PT and OT to work with patient. Case management consult. Elevated liver enzymes Like secondary to alcoholism Counseled Lactic acidosis Likely type B from liver disease decreasing clearance. Trend lactic acid. Received IV fluid at emergency department. Continue patient on gentle IV hydration. Esophageal stricture Reportedly had 2 and esophageal surgery at [facility]. Patient to follow-up outpatient. Tobacco abuse Counseled Nicotine patch ordered. DVT prophylaxis Subcutaneous Lovenox. Inpatient E&M: 96118 Init Hosp L3
[2020-02-02 01:37] LABS: Lactic Acid 2.4 mmol/L (0.4-1.9)
--- NOTE | 2020-02-02 01:49 | ED.DCSUM_ITS ---
- ER Visit Summary Date of Service: 02/02/20 Chief Complaint: Abdominal pain, generalized weakness, nausea, vomiting, diarrhea History of Present Illness: The patient is a 59 F who presents with the above symptoms. She has had the abdominal pain, nausea vomiting and diarrhea for months. She states it got worse recently. She denies any urinary symptoms with this. The power of real estate attorney states that patient is not eating or drinking fluids. She cannot walk and is very weak. She found her in her own feces today as she was unable to get up on her own. She has a history of esophageal strictures with dilations in the past. The patient also drinks alcohol daily. She drinks 2 tall alcoholic beverages as well as some whiskey per day. The caregiver is concerned about her taking care of herself at home and thinks she may need to be admitted to a custodial. Physical Examination: Vital signs reviewed. This is a female who appears older than stated age. He does appear a little bit disheveled and unkempt. HEENT exam unremarkable. Heart is tachycardic and regular rhythm without murmurs. Lungs are clear to auscultation. Abdomen is soft with diffuse tenderness. There is no guarding or rebound tenderness. Extremities reveal no edema. Skin exam normal. Neurologic exam shows diffuse overall weakness. No slurred speech or facial droop. Test Results: Laboratory studies show a hemoglobin of 10.7. Glucose 70. AST 56. Urinalysis does show UTI. Lactate 2.4. Alcohol level is 216. CAT scan of the abdomen and pelvis shows a fatty liver and constipation but no other acute findings. Emergency Department Course and Treatment: The patient was given IV fluids. She received morphine for some back pain that she was having an IV Rocephin for the UTI. Her lactate is likely from dehydration and not from sepsis. I will treat her urinary tract infection. I feel she likely needs admitted to the hospital for further evaluation and possible placement to a custodial. I discussed with the hospitalist for admission. Treatment Plan: [] Disposition: Admit Impression: UTI, generalized weakness, alcohol dependence This note was generated with [employer] software. It may contain incorrect words, spelling, and punctuation that were not noted in review of the chart prior to signing ED Disposition - Plan for ED Patient: Referrals: Care Physician,No Primary [Primary Care Provider] -
[2020-02-02] MEDS: Ceftriaxone 1 GM/50 ML BAG IV (02:09)
[2020-02-02] MEDS: Morphine 4 MG/ML Syringe IV (02:09)
[2020-02-02 04:43] LABS: Reflex Lactate? Y
[2020-02-02] MEDS: 0.9% Normal Saline 1,000 ML 75 ML IV (04:49)
[2020-02-02] MEDS: Metoprolol Tartrate 25 MG Tablet PO (04:49)
[2020-02-02] MEDS: Phenobarbital 32.4 MG Tablet PO ×5 (04:50→22:16)
[2020-02-02] MEDS: cloNIDine HCl 0.1 MG Patch TRANSDERM. (04:50)
[2020-02-02 05:35] LABS: Absolute Neutrophil Count 4.3 X10^3/uL (2.0-7.7); Basophil# 0.04 X10^3/uL; Basophil% 0.6 % (0-1); Eosinophil# 0.02 X10^3/uL; Eosinophils% 0.3 % (0-5); Hemoglobin 11.3 g/dL (12.0-15.0); Lymphocyte % 24.5 % (19-41); Mean Corp Hgb Conc 33.2 g/dL (32-36); Mean Corpuscular Hgb 34.5 pg (27.0-32.0); Mean Corpuscular Volume 103.7 fL (81-99); Mean Platelet Vol. 9.4 fl (6.2-12.0); Monocyte# 0.57 X10^3/uL; Monocyte% 8.7 % (0-10); NRBC Flagged by Analyzer 0 % (0-5); Neutrophil # 4.29 X10^3/uL (2.7-7.7); Neutrophil % 65.6 % (47-70); Platelet Count 193 K/mm3 (150-450); RBC Distribution Width SD 61.3 fl (35.1-43.9); Red Blood Count 3.28 M/mm3 (4.2-5.4); White Blood Count 6.5 K/mm3 (4.4-11.0)
[2020-02-02 05:54] LABS: Anion Gap 6 (5-15); BUN 10 mg/dL (7-18); BUN/Creat Ratio 20.4 RATIO (10-20); Calcium,Total 7.2 mg/dL (8.5-10.1); Chloride 106 mmol/L (98-107); Creatinine, Serum 0.49 mg/dL (0.55-1.02); EST Glomerular Filtration Rate 138 mL/min (>60); Est Glom Filt Rate - Afr Amer 167 mL/min (>60); Estimated Creatinine Clearance 83.57 ml/min; Glucose 84 mg/dL (74-106); Potassium 3.6 mmol/L (3.5-5.1); Sodium Level 139 mmol/L (136-145)
[2020-02-02 06:03] LABS: Lactic Acid 1.8 mmol/L (0.4-1.9)
[2020-02-02] MEDS: cloNIDine HCl 0.1 MG Tablet PO (06:54)
[2020-02-02] MEDS: Aspirin 81 MG TAB.CHEW PO (08:18)
[2020-02-02] MEDS: Thiamine Hydrochloride 100 MG Tablet PO (08:18)
[2020-02-02] MEDS: Folic Acid 1 MG Tablet PO (08:18)
[2020-02-02] MEDS: Enoxaparin 40 MG/0.4 ML Syringe SC (08:20)
--- NOTE | 2020-02-02 09:32 | PN_ITS ---
Patient Problems: Active and Suspected Problems Cystitis (Acute) Hypertensive urgency (Acute) Reason for Visit: Multiple follow-ups including nausea, vomiting and diarrhea and abdominal pain and alcohol dependence and withdrawal Objective: Patient has history of esophageal stricture status post 2 esophageal dilatation and surgery, last one about a year ago in [facility]. Patient has chronic history of nausea, vomiting and diarrhea and abdominal pain. She attributes nausea and vomiting secondary to esophageal stricture but did not had trouble in swallowing in last 1 year. Chronic diarrhea for more than 6 months. It is liquid/watery in consistency, no blood but no tenesmus or fecal incontinence. Abdominal pain is diffuse generalized starts from upper abdomen. Denies recent antibiotic intake for last 3 to 6 months. Denies lower urinary tract symptoms including burning pain, increased frequency urgency or incomplete emptying of bladder. Vitals/I&O's: Vital Signs Temp Pulse Resp BP Pulse Ox 98.1 F 76 18 185/118 H 96 02/02/20 08:12 02/02/20 08:12 02/02/20 08:12 02/02/20 08:12 02/02/20 08:12 Oxygen Delivery Method Room Air Weight: 93 lb 4.089 oz Body Mass Index (BMI) 16.5 Intake and Output for Last 24 Hours 01/31/20 02/01/20 02/02/20 23:59 23:59 23:59 Intake Total 1232.75 / 1232.75 Balance 1232.75 / 1232.75 General: Alert, Oriented x3, Cooperative HEENT: Atraumatic, PERRLA, EOMI, Normocephalic Neck: Supple, No JVD, Negative Carotid Bruits Lungs: Clear to auscultation, Normal air movement, No rhonchi, No wheeze, No rales Cardiovascular: Regular rate, Regular Rhythm, Normal S1, Normal S2, No murmurs Abdomen: Bowel Sounds Present, Soft, Non-Distended, Tender - Mild tenderness in upper abdomen bilateral right and left lumbar quadrants. No suprapubic tenderness. Extremities: No edema, Capillary Refill Less than 3 Seconds Skin: No rashes, No breakdown Musculoskeletal: No Tenderness to Palpation of Joints or Extremities, Muscle Wasting Neurological: Cranial nerves II-XII grossly intact, Deep Tendon Reflexes 2+/4 and Symmetrical, Neuro grossly intact, Motor Exam 5/5 strength throughout Psych/Mental Status: Normal Affect, Appropriate Laboratory Results 02/01/20 23:50: Urine Color Yellow, Urine Clarity Sl. Cloudy, Urine pH 6.5, Ur Specific Bruno 1.010, Urine Protein Negative, Urine Glucose (UA) Normal, Urine Ketones Negative, Urine Occult Blood 10 H, Urine Nitrite Positive H, Urine Bilirubin Negative, Urine Urobilinogen Normal, Ur Leukocyte Esterase 25 H, Urine RBC 0 SEEN, Urine WBC 0-5 SEEN, Ur Squamous Epith Cells 0-5 SEEN, Urine Bacteria 2+, Urine Mucus 0 SEEN 02/02/20 00:30: WBC 6.1, RBC 3.10 L, Hgb 10.7 L, Hct 31.5 L, MCV 101.6 H, MCH 34.5 H, MCHC 34.0, RDW Std Deviation 60.2 H, RDW Coeff of Richard 16.2 H, Plt Count 202, MPV 9.2, Immature Gran % (Auto) 0.500, Neut % (Auto) 67.9, Lymph % (Auto) 22.3, [place] % (Auto) 8.4, Eos % (Auto) 0.2, Baso % (Auto) 0.7, Absolute Neuts (auto) 4.2, Absolute Lymphs (auto) 1.36, Nucleated RBC % 0 02/02/20 00:30: PT 12.8, INR 1.0 02/02/20 00:30: Sodium 140, Potassium 3.5, Chloride 105, Carbon Dioxide 28.0, Anion Gap 7, BUN 11, Creatinine 0.60, Estim Creat Clear Calc 77.12, Est GFR (MDRD) Af Amer 131, Est GFR (MDRD) Non-Af 108, BUN/Creatinine Ratio 18.2, Glucose 70 L, Calcium 7.3 L, Total Bilirubin 0.50, Direct Bilirubin 0.24, AST 56 H, ALT 27, Alkaline Phosphatase 115, Total Protein 5.5 L, Albumin 2.3 L, Globulin 3.2, Lipase 100 02/02/20 00:30: Ethyl Alcohol 216.0 02/02/20 00:30: Lactic Acid 2.4 H* 02/02/20 05:27: WBC 6.5, RBC 3.28 L, Hgb 11.3 L, Hct 34.0 L, MCV 103.7 H, MCH 34.5 H, MCHC 33.2, RDW Std Deviation 61.3 H, RDW Coeff of Richard 16.0 H, Plt Count 193, MPV 9.4, Immature Gran % (Auto) 0.300, Neut % (Auto) 65.6, Lymph % (Auto) 24.5, [place] % (Auto) 8.7, Eos % (Auto) 0.3, Baso % (Auto) 0.6, Absolute Neuts (auto) 4.3, Absolute Lymphs (auto) 1.60, Nucleated RBC % 0 02/02/20 05:27: Sodium 139, Potassium 3.6, Chloride 106, Carbon Dioxide 27.0, Anion Gap 6, BUN 10, Creatinine 0.49 L, Estim Creat Clear Calc 83.57, Est GFR (MDRD) Af Amer 167, Est GFR (MDRD) Non-Af 138, BUN/Creatinine Ratio 20.4 H, Glucose 84, Calcium 7.2 L 02/02/20 05:27: Lactic Acid 1.8 Current Medications Aspirin (Aspirin, Baby) 81 mg PO DAILY@0800 [facility] Last Admin: 02/02/20 08:18 Dose: 81 mg Documented by: Atorvastatin Calcium (Lipitor) 40 mg PO QHS [facility] Clonidine (Catapres) 0.1 mg PO Q6H PRN PRN PRN Reason: SBP > 160 Last Admin: 02/02/20 06:54 Dose: 0.1 mg Documented by: Clonidine HCl (Catapres-Tts1) 0.1 mg TRANSDERM. Q7D [facility] Last Admin: 02/02/20 04:50 Dose: 0.1 mg Documented by: Dextrose (D50w Syringe) 0 gm IV X1 PRN; Protocol PRN Reason: Hypoglycemia Dicyclomine HCl (Bentyl) 20 mg PO Q6H PRN PRN PRN Reason: abdominal discomfort Enoxaparin Sodium (Lovenox) 40 mg SC DAILY [facility] Last Admin: 02/02/20 08:20 Dose: 40 mg Documented by: Folic Acid (Folic Acid) 1 mg PO DAILY@0800 [facility] Last Admin: 02/02/20 08:18 Dose: 1 mg Documented by: Gabapentin (Neurontin) 300 mg PO Q8H PRN PRN PRN Reason: moderate to severe anxiety Glucagon () 1 mg IM .X1 PRN PRN Reason: Hypoglycemia Hydroxyzine Pamoate (Vistaril Pamoate Capsule) 50 mg PO Q4H PRN PRN PRN Reason: mild anxiety Sodium Chloride () 1,000 mls @ 75 mls/hr IV .[id number] [facility] Stop: 02/02/20 10:26 Last Admin: 02/02/20 04:49 Dose: 75 mls/hr Documented by: Loperamide HCl (Imodium) 2 mg PO Q4H PRN PRN PRN Reason: LOOSE STOOLS Metoprolol Tartrate (Lopressor (Beta Dimitrios)) 25 mg PO DAILY [facility] Last Admin: 02/02/20 04:49 Dose: 25 mg Documented by: Nicotine (Nicoderm Cq (Pbkc)) 14 mg TRANSDERM. DAILY [facility] Last Admin: 02/02/20 08:18 Dose: 14 mg Documented by: Ondansetron HCl (Zofran) 4 mg IV Q8H PRN PRN PRN Reason: NAUSEA/VOMITING Ondansetron HCl (Zofran) 8 mg PO Q8H PRN PRN PRN Reason: NAUSEA Phenobarbital (Phenobarbital) 97.2 mg PO Q4H [facility]; Taper Stop: 02/06/20 12:14 Last Admin: 02/02/20 08:18 Dose: 97.2 mg Documented by: Potassium Ch[facility] (K[facility]Dur) [facility] Stop: 02/05/20 08:01 Sodium Chloride () 10 - 40 ml IV UD PRN PRN Reason: SALINE FLUSH Thiamine [facility] ([facility]itamin B1) [facility] Last Admin: 02/02/20 08:18 Dose: 100 mg Documented by: Trazodone HCl (Desyrel) 100 mg PO QHS PRN PRN Reason: INSOMNIA STROKE Vital Signs/Narrative: Vital Signs Temp Pulse Resp BP BP Pulse Ox 02/02/20 08:12 98.1 F 76 18 185/118 H 96 02/02/20 07:53 81 02/02/20 06:00 98.8 F 79 15 169/116 H 169/116 H 97 Medical Necessity - Tobacco Use Smoking Status: Current every day smoker Tobacco Use: Cigarettes Assessment/Plan All Active Problems Cystitis (Acute) Hypertensive urgency (Acute) The patient is a 59 year old F with a significant history of esophageal stricture status post 2 esophageal dilatation and surgery; alcoholism; and hypertension who presents at the emergency department with weakness; abdominal pain; malaise; nausea; vomiting and diarrhea; and with abnormal urinalysis 1. Acute on chronic diarrhea, nausea and vomiting rule out acute gastroenteritis on baseline chronic alcohol use and esophageal stricture: Stool test are pending including intake bacteriology panel and C. difficile. Alcohol might cause acute/chronic gastritis along with enteritis and malabsorption. Advised alcohol cessation. Lactic acidosis may be secondary to hypoperfusion from diarrhea 2. Hypertensive urgency: Blood pressure was 202/128. Still elevated. May be secondary to chronic alcohol use. On clonidine. Losartan added. Neurology 10 mg IV every 4 hourly as needed. Blood pressure more than 180. Titrate ant ihypertensive medication for blood pressure parameters. 3. Asymptomatic bacteriuria: Denies lower urinary tract symptoms including dysuria, increased frequency or urgency. UA WBC 0-5 cells, bacteria 2+, LE 25 nitrite positive. Patient had 1 dose of ceftriaxone. Will DC ceftriaxone. 4. Chronic alcohol use and dependence: On phenobarbital and adjunctive medications for medical stabilization. 5. Chronic esophageal stricture status post dilatation esophagus in [facility]: Follow-up as an outpatient. 6. Chronic alcoholic hepatitis: Transaminases have been elevated in the past and currently AST 56. 7. Chronic smoking/nicotine. Dependence: On nicotine patch DVT prophylaxis Subcutaneous Lovenox.
[2020-02-02 10:38] LABS: Magnesium 1.6 mg/dL (1.6-2.6)
[2020-02-02] MEDS: oxyCODONE 5 MG Tablet PO ×3 (10:44→22:16)
[2020-02-02] MEDS: Losartan Potassium 25 MG Tablet PO (10:44)
[2020-02-02] MEDS: cloNIDine HCl 0.2 MG Tablet PO ×2 (10:44→22:48)
[2020-02-02] MEDS: Atorvastatin Calcium 40 MG Tablet PO (22:48)
[2020-02-03] VITALS (10 sets, daily range): BP systolic 112–134; BP diastolic 76–96; PULSE 71–90; RESP 14–18; TEMP 36.5–36.9; O2SAT 96–98
[2020-02-03] MEDS: Phenobarbital 32.4 MG Tablet PO ×7 (01:03→23:34)
[2020-02-03] MEDS: Aspirin 81 MG TAB.CHEW PO (08:37)
[2020-02-03] MEDS: Thiamine Hydrochloride 100 MG Tablet PO (08:38)
[2020-02-03] MEDS: Folic Acid 1 MG Tablet PO (08:38)
[2020-02-03] MEDS: Enoxaparin 40 MG/0.4 ML Syringe SC (08:43)
[2020-02-03] MEDS: Ondansetron 4 MG/2 ML Vial IV (08:54)
[2020-02-03] MEDS: 0.9% Saline Lock 10 ML Syringe IV ×2 (08:54→20:19)
[2020-02-03] MEDS: Morphine 2 MG/ML Syringe IV ×2 (08:54→20:19)
[2020-02-03] MEDS: Losartan Potassium 25 MG Tablet PO (10:05)
[2020-02-03] MEDS: cloNIDine HCl 0.1 MG Tablet PO (10:05)
--- NOTE | 2020-02-03 13:58 | PCM.PN.HOSP ---
Patient Problems: Active and Suspected Problems Cystitis (Acute) Hypertensive urgency (Acute) Reason for Visit: Patient complains of no fever or chills. She felt swallowing difficulty with potassium pill and potassium tablets changed to suspension liquid. No shortness of breath. She has dispensary of sensation in lower throat. On exam General: Alert, Oriented x3, Cooperative HEENT: Atraumatic, PERRLA, EOMI, Normocephalic Oral: No foreign body observed up to deep oropharynx. No ulcer. Neck: Supple, No JVD, Negative Carotid Bruits Lungs: Clear to auscultation, Normal air movement, No rhonchi, No wheeze, No rales Cardiovascular: Regular rate, Regular Rhythm, Normal S1, Normal S2, No murmurs Abdomen: Bowel Sounds Present, Soft, Non-Distended, Tender - Mild tenderness in upper abdomen bilateral right and left lumbar quadrants. No suprapubic tenderness. Extremities: No edema, Capillary Refill Less than 3 Seconds Skin: No rashes, No breakdown Musculoskeletal: No Tenderness to Palpation of Joints or Extremities, Muscle Wasting Neurological: Cranial nerves II-XII grossly intact, Deep Tendon Reflexes 2+/4 and Symmetrical, Neuro grossly intact, Motor Exam 5/5 strength throughout Psych/Mental Status: Normal Affect, Appropriate Vitals/I&O's: Vital Signs Temp Pulse Resp BP Pulse Ox 97.7 F L 71 16 134/96 H 98 02/03/20 10:02/03/20 10:00 02/03/20 10:00 02/03/20 10:02/03/20 10:00 Oxygen Delivery Method Room Air Weight: 93 lb 4.089 oz Body Mass Index (BMI) 16.5 Intake and Output for Last 24 Hours 02/01/20 02/02/20 02/03/20 23:59 23:59 23:59 Intake Total 3585.50 / 4065.50 900 / 900 Output Total 200 / 200 200 / 200 Balance 3385.50 / 3865.50 700 / 700 Microbiology Past 72 Hours 02/01/20 23:50 Urine, Clean Catch Urine Culture - Preliminary Gram negative malick 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 Q7D [facility] Last Admin: 02/02/20 04:50 Dose: 0.1 mg Documented by: Dextrose (D50w Syringe) 0 gm IV X1 PRN; Protocol PRN Reason: Hypoglycemia Dicyclomine HCl (Bentyl) 20 mg PO Q6H PRN PRN PRN Reason: abdominal discomfort Enoxaparin Sodium (Lovenox) 40 mg SC DAILY [facility] Last Admin: 02/03/20 08:43 Dose: 40 mg Documented by: Folic Acid (Folic Acid) 1 mg PO DAILY@0800 [facility] Last Admin: 02/03/20 08:38 Dose: 1 mg Documented by: Gabapentin (Neurontin) 300 mg PO Q8H PRN PRN PRN Reason: moderate to severe anxiety Glucagon () 1 mg IM .X1 PRN PRN Reason: Hypoglycemia Hydralazine HCl (Apresoline Iv) 10 mg IV Q4H PRN PRN PRN Reason: SBP more than 180 mmHg Hydroxyzine Pamoate (Vistaril Pamoate Capsule) 50 mg PO Q4H PRN PRN PRN Reason: mild anxiety Loperamide HCl (Imodium) 2 mg PO Q4H PRN PRN PRN Reason: LOOSE STOOLS Losartan Potassium (Cozaar) 25 mg PO DAILY [facility] Last Admin: 02/03/20 10:05 Dose: 25 mg Documented by: Morphine Sulfate () 2 mg IV Q3H PRN PRN PRN Reason: Pain Score 6-10/10 Last Admin: 02/03/20 08:54 Dose: 2 mg Documented by: Nicotine (Nicoderm Cq (Pbkc)) 14 mg TRANSDERM. DAILY [facility] Last Admin: 02/03/20 08:43 Dose: 14 mg Documented by: Nutritional Formula (Lactose Free) (Ensure Enlive) 120 ml PO 4X/DAY [facility] Last Admin: 02/03/20 13:44 Dose: Not Given Documented by: Ondansetron HCl (Zofran) 4 mg IV Q8H PRN PRN PRN Reason: NAUSEA/VOMITING Last Admin: 02/03/20 08:54 Dose: 4 mg Documented by: Ondansetron HCl (Zofran) 8 mg PO Q8H PRN PRN PRN Reason: NAUSEA Oxycodone HCl (Oxyir) 5 mg PO Q4H PRN PRN PRN Reason: Pain Score 4-5/10 Last Admin: 02/02/20 22:16 Dose: 5 mg Documented by: Phenobarbital (Phenobarbital) 64.8 mg PO Q4H [facility]; Taper Stop: 02/06/20 12:14 Last Admin: 02/03/20 12:11 Dose: 64.8 mg Documented by: Potassium Chloride (K-Dur) 40 meq PO DAILYCM [facility] Stop: 02/05/20 08:01 Last Admin: 02/03/20 08:38 Dose: 40 meq Documented by: Sodium Chloride () 10 - 40 ml IV UD PRN PRN Reason: SALINE FLUSH Last Admin: 02/03/20 08:54 Dose: 10 ml Documented by: Thiamine HCl (Vitamin B1) [facility] Last Admin: 02/03/20 08:38 Dose: 100 mg Documented by: Trazodone HCl (Desyrel) 100 mg PO QHS PRN PRN Reason: INSOMNIA STROKE Vital Signs/Narrative: Vital Signs Temp Pulse Resp BP Pulse Ox 02/03/20 10:00 97.7 F L 71 16 134/96 H 98 Medical Necessity - Tobacco Use Smoking Status: Current every day smoker Tobacco Use: Cigarettes Assessment/Plan All Active Problems Cystitis (Acute) Hypertensive urgency (Acute) The patient is a 59 year old F with a significant history of esophageal stricture status post 2 esophageal dilatation and surgery; alcoholism; and hypertension who presents at the emergency department with weakness; abdominal pain; malaise; nausea; vomiting and diarrhea; and with abnormal urinalysis 1. Acute on chronic diarrhea, nausea and vomiting rule out acute gastroenteritis on baseline chronic alcohol use and esophageal stricture: Stool test are pending including intake bacteriology panel and C. difficile. Alcohol might cause acute/chronic gastritis along with enteritis and malabsorption. Advised alcohol cessation. Lactic acidosis may be secondary to hypoperfusion from diarrhea 02/02: Diarrhea is controlled. 2. Hypertensive urgency: Blood pressure was 202/128. Still elevated. May be secondary to chronic alcohol use. On clonidine. Losartan added. Neurology 10 mg IV every 4 hourly as needed. Blood pressure more than 180. Titrate antihypertensive medication for blood pressure parameters. 02/02: Blood pressure is controlled 117/82, 112/78. Clonidine decreased to 0.1 mg twice daily. 3. Asymptomatic bacteriuria: Denies lower urinary tract symptoms including dysuria, increased frequency or urgency. UA WBC 0-5 cells, bacteria 2+, LE 25 nitrite positive. Patient had 1 dose of ceftriaxone. Will DC ceftriaxone. 02/02: Urine culture preliminary report and gram-negative mlaick 50,000-80,000 and gram-negative malick lactose department to 5000-50,000 colonies most likely contamination or asymptomatic bacteriuria. 4. Chronic alcohol use and dependence: On phenobarbital and adjunctive medications for medical stabilization. 5. Chronic esophageal stricture status post dilatation esophagus in [facility]: Follow-up as an outpatient. 6. Chronic alcoholic hepatitis: Transaminases have been elevated in the past and currently AST 56. 7. Chronic smoking/nicotine. Dependence: On nicotine patch DVT prophylaxis Subcutaneous Lovenox. Inpatient E&M: [id number] Subs Hosp L2
--- NOTE | 2020-02-03 15:23 | NURSING ---
This RN updated pt's POA, Flaca via phone.
[2020-02-03] MEDS: Atorvastatin Calcium 40 MG Tablet PO (21:37)
[2020-02-03] MEDS: oxyCODONE 5 MG Tablet PO (23:47)
[2020-02-04] VITALS (8 sets, daily range): BP systolic 98–126; BP diastolic 70–90; PULSE 75–88; RESP 16–18; TEMP 36.6–37.2; O2SAT 96–100
[2020-02-04] MEDS: 0.9% Saline Lock 10 ML Syringe IV ×3 (01:35→20:10)
[2020-02-04] MEDS: Morphine 2 MG/ML Syringe IV ×4 (01:35→20:10)
[2020-02-04] MEDS: Phenobarbital 32.4 MG Tablet PO ×5 (03:36→23:52)
[2020-02-04] MEDS: oxyCODONE 5 MG Tablet PO ×4 (04:09→23:49)
[2020-02-04] MEDS: Folic Acid 1 MG Tablet PO (07:42)
[2020-02-04] MEDS: Thiamine Hydrochloride 100 MG Tablet PO (07:42)
[2020-02-04] MEDS: Aspirin 81 MG TAB.CHEW PO (07:42)
[2020-02-04] MEDS: Enoxaparin 40 MG/0.4 ML Syringe SC (09:02)
[2020-02-04] MEDS: Losartan Potassium 50 MG Tablet PO (09:03)
[2020-02-04] MEDS: cloNIDine HCl 0.1 MG Tablet PO (09:03)
[2020-02-04] MEDS: Ceftriaxone 1 GM/50 ML BAG IV (09:51)
--- NOTE | 2020-02-04 10:19 | CASEMGMT ---
SW received a note indicating patient's POA would like her to go to a senior living. SW spoke with patient, introduced self and role at [facility]. SW shared with patient that her POA would like her to go to a senior living. She shook her head no and said she has been to a senior living before and does not want to do that again. She went to [facility] previously. SW asked about home health. She said she is not sure where home will be as she does not think her roommates want her to return there. She gave SW permission to call [facility] to see if she can return there at d/c. PAVEL told her SW will let her know. She then tried to give SW another one of her friend's names and number to call to see if she can stay with him. PAVEL told her SW will check with [facility], but she will need to call her friends to see where she can stay. PAVEL attempted to call [facility], but a recording came on indicating the wireless customer called is not available at this time to try back later. Ginette KEENE MSW
--- NOTE | 2020-02-04 10:32 | CASEMGMT ---
PAVEL let patient know SW could not get a hold of her friend, but SW will keep trying. PAVEL asked her if she has been to [facility] before and she said she has and does not want to go back. PAVEL told her then she needs to get on the phone and find where she can go at d/c. Ginette KEENE MSW
--- NOTE | 2020-02-04 11:16 | CASEMGMT ---
SW has not addressed substance abuse with patient yet as she can barely stay awake long enough to discuss where she is going to stay at discharge. Both times SW went in to talk with patient SW had to wake her up. Ginette KEENE MSW
--- NOTE | 2020-02-04 12:55 | CASEMGMT ---
PAVEL met with patient and her niece, Flaca per her niece's request. Flaca said she would like help getting patient to a half-way. She said her daughter wanted [facility], but patient wants to go back to [facility]. PAVEL asked patient if she wanted to go back to [facility] and she said she did. PAVEL did let them know insurance will have to approve and if insurance denies they will need think of a back up plan. PAVEL called [facility] and left a message with Edith Harp in admissions and PAVEL also faxed referral. Await response. Ginette KEENE [employer] LO[employer]ER AND HANDLE ATTACHER
--- NOTE | 2020-02-04 14:44 | PCM.PN.HOSP ---
<Manas Garcia - Last Filed: 02/04/20 14:44> Patient Problems: Active and Suspected Problems Cystitis (Acute) Hypertensive urgency (Acute) Reason for Visit: alcohol withdrawal Subjective: No further nausea or vomiting. No GARCIA, dizziness LH. Pt tolerating PO intake. Pt resting comfortably in chair at bedside. No fever/chills. No urinary complaints or abd pain. [place] is [facility] and does not want to return to [facility] [employer]. Vitals/I&O's: Vital Signs Temp Pulse Resp BP Pulse Ox 98.6 F 75 16 123/90 H 96 02/04/20 09:00 02/04/20 09:00 02/04/20 09:00 02/04/20 09:00 02/04/20 09:00 Oxygen Delivery Method Room Air Weight: 93 lb 4.089 oz Body Mass Index (BMI) 16.5 Intake and Output for Last 24 Hours 02/02/20 02/03/20 02/04/20 23:59 23:59 23:59 Intake Total 3585.50 / 4065.50 1540 / 1540 774 / 774 Output Total 200 / 200 200 / 200 Balance 3385.50 / 3865.50 1340 / 1340 774 / 774 General: Alert, Oriented x3, Cooperative HEENT: Atraumatic, PERRLA, EOMI, Normocephalic Neck: Supple, No JVD, Negative Carotid Bruits Lungs: Clear to auscultation, Normal air movement Cardiovascular: Regular rate, No murmurs Abdomen: Bowel Sounds Present, Soft, Non Tender Extremities: No edema, Capillary Refill Less than 3 Seconds Skin: No rashes, No breakdown Musculoskeletal: No Tenderness to Palpation of Joints or Extremities Neurological: Cranial nerves II-XII grossly intact Psych/Mental Status: Anxious, Alert and oriented to time, place, person, mood and affect Microbiology Past 72 Hours 02/01/20 23:50 Urine, Clean Catch Urine Culture - Preliminary Gram negative malick 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 Current Medications Acetaminophen (Tylenol) 650 mg PO Q6H PRN PRN PRN Reason: Pain Score 1-3 /Temp>100.7 Aspirin (Aspirin, Baby) 81 mg PO DAILY@0800 [facility] Last Admin: 02/04/20 07:42 Dose: 81 mg Documented by: Atorvastatin Calcium (Lipitor) 40 mg PO QHS [facility] Last Admin: 02/03/20 21:37 Dose: 40 mg Documented by: Clonidine (Catapres) 0.1 mg PO BID [facility] Last Admin: 02/04/20 09:03 Dose: 0.1 mg Documented by: Clonidine HCl (Catapres-Tts1) 0.1 mg TRANSDERM. Q7D [facility] Last Admin: 02/02/20 04:50 Dose: 0.1 mg Documented by: Dextrose (D50w Syringe) 0 gm IV X1 PRN; Protocol PRN Reason: Hypoglycemia Dicyclomine HCl (Bentyl) 20 mg PO Q6H PRN PRN PRN Reason: abdominal discomfort Enoxaparin Sodium (Lovenox) 40 mg SC DAILY [facility] Last Admin: 02/04/20 09:02 Dose: 40 mg Documented by: Folic Acid (Folic Acid) 1 mg PO DAILY@0800 [facility] Last Admin: 02/04/20 07:42 Dose: 1 mg Documented by: Gabapentin (Neurontin) 300 mg PO Q8H PRN PRN PRN Reason: moderate to severe anxiety Glucagon () 1 mg IM .X1 PRN PRN Reason: Hypoglycemia Hydralazine HCl (Apresoline Iv) 10 mg IV Q4H PRN PRN PRN Reason: SBP more than 180 mmHg Hydroxyzine Pamoate (Vistaril Pamoate Capsule) 50 mg PO Q4H PRN PRN PRN Reason: mild anxiety Ceftriaxone Sodium (Rocephin) 1 gm in 50 mls @ 100 mls/hr IV Q24 [facility] Last Infusion: 02/04/20 10:26 Dose: Infused Documented by: Loperamide HCl (Imodium) 2 mg PO Q4H PRN PRN PRN Reason: LOOSE STOOLS Losartan Potassium (Cozaar) 50 mg PO DAILY [facility] Last Admin: 02/04/20 09:03 Dose: 50 mg Documented by: Morphine Sulfate () 2 mg IV Q3H PRN PRN PRN Reason: Pain Score 6-10/10 Last Admin: 02/04/20 13:26 Dose: 2 mg Documented by: Nicotine (Nicoderm Cq (Pbkc)) 14 mg TRANSDERM. DAILY [facility] Last Admin: 02/04/20 09:02 Dose: 14 mg Documented by: Nutritional Formula (Lactose Free) (Ensure Enlive) 120 ml PO 4X/DAY [facility] Last Admin: 02/04/20 13:00 Dose: Not Given Documented by: Ondansetron HCl (Zofran) 4 mg IV Q8H PRN PRN PRN Reason: NAUSEA/VOMITING Last Admin: 02/03/20 08:54 Dose: 4 mg Documented by: Ondansetron HCl (Zofran) 8 mg PO Q8H PRN PRN PRN Reason: NAUSEA Oxycodone HCl (Oxyir) 5 mg PO Q4H PRN PRN PRN Reason: Pain Score 4-5/10 Last Admin: 02/04/20 11:28 Dose: 5 mg Documented by: Phenobarbital (Phenobarbital) 64.8 mg PO Q6H [facility]; Taper Stop: 02/06/20 12:14 Last Admin: 02/04/20 11:26 Dose: 64.8 mg Documented by: Potassium Chloride (Potassium Chl Soln) 40 meq PO DAILY [facility] Last Admin: 02/04/20 09:02 Dose: 40 meq Documented by: Sodium Chloride () 10 - 40 ml IV UD PRN PRN Reason: SALINE FLUSH Last Admin: 02/04/20 09:51 Dose: 10 ml Documented by: Thiamine HCl (Vitamin B1) 100 mg PO DAILYCM [facility] Last Admin: 02/04/20 07:42 Dose: 100 mg Documented by: Trazodone HCl (Desyrel) 100 mg PO QHS PRN PRN Reason: INSOMNIA Medical Necessity - Tobacco Use Smoking Status: Current every day smoker Tobacco Use: Cigarettes Assessment/Plan All Active Problems Cystitis (Acute) Hypertensive urgency (Acute) 1. Nausea , vomiting, diarrhea - resolved. none since admission. resolved. suspec alcohol withdrawal. CT initially showed possible constipation. 2. Acute cystitis ruled out, asymptomatic bacteriuria- asymptomatic at this time. no fever/leukocytosis. 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 3. HTN urgency - resolved. continue losartan, clonidine. 4. Alcoholism with acute withdrawal - continue phenobarb taper. 5. Homelessness - complicating compliance issues and increasing likeliness of poor prognosis 6. Chronic alcoholic hepatitis - refer to [facility]. LFTs stable 7. Nicotine abuse - patch [place] planning: consult to SW regarding homelessness. Possible SNF placement, obtain covid test for placement. DVT ppx: lovenox This patient was seen by Manas Garcia PA-C under the supervision of Doctor Royce. <Blaise Crane - Last Filed: 02/04/20 16:09> Reason for Visit: Alcohol withdrawal. Subjective: Patient stated she did not had burning micturition but increased frequency but no urgency. UA shows WBC 0-5 cells, 2+ bacteria and positive nitrite but urine culture probably after antibiotic was given therefore possible partially treated UTI. Vitals/I&O's: Vital Signs Temp Pulse Resp BP Pulse Ox 97.8 F 78 16 98/70 99 02/04/20 15:00 02/04/20 15:00 02/04/20 15:00 02/04/20 15:00 02/04/20 15:00 Oxygen Delivery Method Room Air Weight: 93 lb 4.089 oz Body Mass Index (BMI) 16.5 Intake and Output for Last 24 Hours 02/02/20 02/03/20 02/04/20 23:59 23:59 23:59 Intake Total 3585.50 / 4065.50 1540 / 1540 774 / 774 Output Total 200 / 200 200 / 200 Balance 3385.50 / 3865.50 1340 / 1340 774 / 774 General: Alert, Oriented x3, Cooperative HEENT: Atraumatic, PERRLA, EOMI, Normocephalic Neck: Supple, No JVD, Negative Carotid Bruits Lungs: Clear to auscultation, No rhonchi, No wheeze, No rales, Diminished Cardiovascular: Regular rate, Regular Rhythm, Normal S1, Normal S2, No murmurs Abdomen: Bowel Sounds Present, Soft, Non Tender, Non-Distended Extremities: No edema, Capillary Refill Less than 3 Seconds Skin: No rashes, No breakdown Musculoskeletal: No Tenderness to Palpation of Joints or Extremities, Arthritic Changes Neurological: Cranial nerves II-XII grossly intact, Deep Tendon Reflexes 2+/4 and Symmetrical, Neuro grossly intact Psych/Mental Status: Anxious, Alert and oriented to time, place, person, mood and affect Microbiology Past 72 Hours 02/01/20 23:50 Urine, Clean Catch Urine Culture - Preliminary Gram negative malick 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 Laboratory Results 02/04/20 15:20: COVID-19 (DEMAR) Pending 02/04/20 15:20: COVID-19 (DEMAR) Pending Current Medications Acetaminophen (Tylenol) 650 mg PO Q6H PRN PRN PRN Reason: Pain Score 1-3 /Temp>100.7 Aspirin (Aspirin, Baby) 81 mg PO DAILY@0800 [facility] Last Admin: 02/04/20 07:42 Dose: 81 mg Documented by: Atorvastatin Calcium (Lipitor) 40 mg PO QHS [facility] Last Admin: 02/03/20 21:37 Dose: 40 mg Documented by: Clonidine (Catapres) 0.1 mg PO BID [facility] Last Admin: 02/04/20 09:03 Dose: 0.1 mg Documented by: Clonidine HCl (Catapres-Tts1) 0.1 mg TRANSDERM. Q7D [facility] Last Admin: 02/02/20 04:50 Dose: 0.1 mg Documented by: Dextrose (D50w Syringe) 0 gm IV X1 PRN; Protocol PRN Reason: Hypoglycemia Dicyclomine HCl (Bentyl) 20 mg PO Q6H PRN PRN PRN Reason: abdominal discomfort Enoxaparin Sodium (Lovenox) 40 mg SC DAILY [facility] Last Admin: 02/04/20 09:02 Dose: 40 mg Documented by: Folic Acid (Folic Acid) 1 mg PO DAILY@0800 [facility] Last Admin: 02/04/20 07:42 Dose: 1 mg Documented by: Gabapentin (Neurontin) 300 mg PO Q8H PRN PRN PRN Reason: moderate to severe anxiety Glucagon () 1 mg IM .X1 PRN PRN Reason: Hypoglycemia Hydralazine HCl (Apresoline Iv) 10 mg IV Q4H PRN PRN PRN Reason: SBP more than 180 mmHg Hydroxyzine Pamoate (Vistaril Pamoate Capsule) 50 mg PO Q4H PRN PRN PRN Reason: mild anxiety Ceftriaxone Sodium (Rocephin) 1 gm in 50 mls @ 100 mls/hr IV Q24 [facility] Last Infusion: 02/04/20 10:26 Dose: Infused Documented by: Loperamide HCl (Imodium) 2 mg PO Q4H PRN PRN PRN Reason: LOOSE STOOLS Losartan Potassium (Cozaar) 50 mg PO DAILY [facility] Last Admin: 02/04/20 09:03 Dose: 50 mg Documented by: Morphine Sulfate () 2 mg IV Q3H PRN PRN PRN Reason: Pain Score 6-10/10 Last Admin: 02/04/20 13:26 Dose: 2 mg Documented by: Nicotine (Nicoderm Cq (Pbkc)) 14 mg TRANSDERM. DAILY [facility] Last Admin: 02/04/20 09:02 Dose: 14 mg Documented by: Nutritional Formula (Lactose Free) (Ensure Enlive) 120 ml PO 4X/DAY [facility] Last Admin: 02/04/20 13:00 Dose: Not Given Documented by: Ondansetron HCl (Zofran) 4 mg IV Q8H PRN PRN PRN Reason: NAUSEA/VOMITING Last Admin: 02/03/20 08:54 Dose: 4 mg Documented by: Ondansetron HCl (Zofran) 8 mg PO Q8H PRN PRN PRN Reason: NAUSEA Oxycodone HCl (Oxyir) 5 mg PO Q4H PRN PRN PRN Reason: Pain Score 4-5/10 Last Admin: 02/04/20 11:28 Dose: 5 mg Documented by: Phenobarbital (Phenobarbital) 64.8 mg PO Q6H [facility]; Taper Stop: 02/06/20 12:14 Last Admin: 02/04/20 11:26 Dose: 64.8 mg Documented by: Potassium Chloride (Potassium Chl Soln) 40 meq PO DAILY [facility] Last Admin: 02/04/20 09:02 Dose: 40 meq Documented by: Sodium Chloride () 10 - 40 ml IV UD PRN PRN Reason: SALINE FLUSH Last Admin: 02/04/20 09:51 Dose: 10 ml Documented by: [facility] Admin: 02/04/20 07:42 Dose: 100 mg Documented by: Trazodone HCl (Desyrel) 100 mg PO QHS PRN PRN Reason: INSOMNIA STROKE Vital Signs/Narrative: Vital Signs Temp Pulse Resp BP Pulse Ox 02/04/20 15:00 97.8 F 78 16 98/70 99 02/04/20 14:49 87 Assessment/Plan This patient was seen in conjunction with Manas BEJARANO. I have independently interviewed and examined the patient and reviewed pertinent history, examination findings, laboratory and plan of management. I have reviewed the note and agree with the documented findings with the few additional points. The patient is a 59 year old F with a significant history of esophageal stricture status post 2 esophageal dilatation and surgery; alcoholism; and hypertension who presents at the emergency department with weakness; abdominal pain; malaise; nausea; vomiting and diarrhea; and with abnormal urinalysis 1. Acute on chronic diarrhea, nausea and vomiting rule out acute gastroenteritis on baseline chronic alcohol use and esophageal stricture: Stool test are pending including intake bacteriology panel and C. difficile. Alcohol might cause acute/chronic gastritis along with enteritis and malabsorption. Advised alcohol cessation. Lactic acidosis may be secondary to hypoperfusion from diarrhea. Blood culture negative for more than 48 hours. Diarrhea has resolved. 2. Hypertensive urgency: Blood pressure was 202/128. Still elevated. May be secondary to chronic alcohol use. On clonidine. Losartan added. Neurology 10 mg IV every 4 hourly as needed. Blood pressure more than 180. Titrate antihypertensive medication for blood pressure parameters. Patient blood pressure was controlled with clonidine, dose tapered and discontinued today. 3. Partially treated UTI, gram-negative malick: Denies lower urinary tract symptoms including dysuria, increased urgency but increased frequency. UA WBC 0-5 cells, bacteria 2+, LE 25 nitrite positive. Mostly patient received ceftriaxone after urine culture was collected. Ceftriaxone continued. 3 days of IV antibiotics will be enough. Preliminary urine cultures reported and gram-negative malick 50,000-80,000 and gram-negative malick lactose department to 5000-80,000 colonies most likely partially treated UTI or contamination. 4. Chronic alcohol use and dependence: On phenobarbital and adjunctive medications for medical stabilization. 5. Chronic esophageal stricture status post dilatation esophagus in [facility]: Follow-up as an outpatient. 6. Chronic alcoholic hepatitis: Transaminases have been elevated in the past and currently AST 56. 7. Chronic smoking/nicotine. Dependence: On nicotine patch DVT prophylaxis Subcutaneous Lovenox. I have discussed my assessment with Manas BEJARANO and orders have been reviewed. Inpatient E&M: 62241 Subs Hosp L2
--- NOTE | 2020-02-04 14:54 | CASEMGMT ---
PAVEL received a return call from Edith Harp with [facility]. She said clinically patient looks fine, but they need to verify her patient liability. She said when patient was there last time she did not want to pay her liability. She will figure out what her liability is and call PAVEL back. Ginette KEENE MSW
[2020-02-04] MEDS: Atorvastatin Calcium 40 MG Tablet PO (20:28)
[2020-02-04] MEDS: Ondansetron 8 MG Tablet PO (20:28)
--- NOTE | 2020-02-04 20:35 | NURSING ---
Pt. POA called for update on pt. status. POA was updated and POAndres stated she has a possible wool mixer for pt.
[2020-02-05] VITALS (7 sets, daily range): BP systolic 101–136; BP diastolic 68–89; PULSE 81–105; RESP 16–18; TEMP 36.6–36.8; O2SAT 94–98
[2020-02-05] MEDS: 0.9% Saline Lock 10 ML Syringe IV ×4 (03:09→22:01)
[2020-02-05] MEDS: Morphine 2 MG/ML Syringe IV (03:09)
[2020-02-05] MEDS: oxyCODONE 5 MG Tablet PO ×2 (06:34→11:26)
[2020-02-05] MEDS: Phenobarbital 32.4 MG Tablet PO ×4 (06:34→23:51)
[2020-02-05 07:18] LABS: Anion Gap 4 (5-15); BUN 11 mg/dL (7-18); BUN/Creat Ratio 20.3 RATIO (10-20); Calcium,Total 7.3 mg/dL (8.5-10.1); Chloride 104 mmol/L (98-107); Creatinine, Serum 0.54 mg/dL (0.55-1.02); EST Glomerular Filtration Rate 122 mL/min (>60); Est Glom Filt Rate - Afr Amer 148 mL/min (>60); Estimated Creatinine Clearance 75.83 ml/min; Glucose 81 mg/dL (74-106); Magnesium 1.7 mg/dL (1.6-2.6); Phosphorus 2.1 mg/dL (2.5-4.9); Potassium 5.2 mmol/L (3.5-5.1); Sodium Level 134 mmol/L (136-145)
[2020-02-05] MEDS: Enoxaparin 40 MG/0.4 ML Syringe SC (08:45)
[2020-02-05] MEDS: Thiamine Hydrochloride 100 MG Tablet PO (08:45)
[2020-02-05] MEDS: Folic Acid 1 MG Tablet PO (08:45)
[2020-02-05] MEDS: Aspirin 81 MG TAB.CHEW PO (08:45)
[2020-02-05] MEDS: Magnesium Oxide 400 MG Tablet 800 MG PO (08:45)
[2020-02-05] MEDS: Losartan Potassium 50 MG Tablet PO (08:45)
[2020-02-05] MEDS: Ceftriaxone 1 GM/50 ML BAG IV (08:47)
[2020-02-05] MEDS: Ondansetron 4 MG/2 ML Vial IV (08:54)
[2020-02-05 09:08] LABS: Probe Check PASS; Specimen Processing Control PASS
--- NOTE | 2020-02-05 10:09 | CASEMGMT ---
SW noted that patient's POA called in and let the nurse know she found a caregiver for patient. SW called patient's POA, Flaca and she said she did find someone to be a motorcycle deliverer, but they have to find an apartment for her first. She will still need to go to [facility] while they work on this. PAVEL called Edith Katiuska with [facility] and left her a voice mail inquiring if they are able to accept patient and if they had started the pre-cert yet. Ginette KEENE POLL WATCHER
--- NOTE | 2020-02-05 11:36 | PN_ITS ---
<Manas Garcia - Last Filed: 02/05/20 11:36> Patient Problems: Active and Suspected Problems Cystitis (Acute) Hypertensive urgency (Acute) Reason for Visit: nausea Subjective: some nausea and vomiting again this AM. No abd pain. No fever/chills. No dysria. Pt waiting for precert for SNF placement. she is agreeable to go to [facility]. Vitals/I&O's: Vital Signs Temp Pulse Resp BP Pulse Ox 98.2 F 98 18 102/69 95 02/05/20 09:25 02/05/20 09:25 02/05/20 09:25 02/05/20 09:25 02/05/20 09:25 Oxygen Delivery Method Room Air Weight: 93 lb 4.089 oz Body Mass Index (BMI) 16.5 Intake and Output for Last 24 Hours 02/03/20 02/04/20 02/05/20 23:59 23:59 23:59 Intake Total 1540 / 1540 1414 / 1414 530 / 530 Output Total 200 / 200 Balance 1340 / 1340 1414 / 1414 530 / 530 General: Alert, Oriented x3, Cooperative HEENT: Atraumatic, PERRLA, EOMI, Normocephalic Neck: Supple, No JVD, Negative Carotid Bruits Lungs: Clear to auscultation, Normal air movement Cardiovascular: Regular rate, No murmurs Abdomen: Bowel Sounds Present, Soft, Non Tender Extremities: No edema, Capillary Refill Less than 3 Seconds Skin: No rashes, No breakdown Musculoskeletal: No Tenderness to Palpation of Joints or Extremities Neurological: Cranial nerves II-XII grossly intact Psych/Mental Status: Normal Affect, Appropriate Microbiology Past 72 Hours 02/01/20 23:50 Urine, Clean Catch Urine Culture - Final Escherichia coli#2 Escherichia coli 02/02/20 00:30 Blood Culture (Wb) - Arm Left Blood Culture - Preliminary No growth in 48 hours. Laboratory Results 02/04/20 15:20: COVID-19 (DEMAR) Negative 02/04/20 15:20: COVID-19 (DEMAR) Cancelled 02/05/20 06:24: Sodium 134 L, Potassium 5.2 H, Chloride 104, Carbon Dioxide 26.0, Anion Gap 4 L, BUN 11, Creatinine 0.54 L, Estim Creat Clear Calc 75.83, Est GFR (MDRD) Af Amer 148, Est GFR (MDRD) Non-Af 122, BUN/Creatinine Ratio 20.3 H, Glucose 81, Calcium 7.3 L, Phosphorus 2.1 L, Magnesium 1.7 Current Medications Acetaminophen (Tylenol) 650 mg PO Q6H PRN PRN PRN Reason: Pain Score 1-3 /Temp>100.7 Aspirin (Aspirin, Baby) 81 mg PO DAILY@0800 [facility] Last Admin: 02/05/20 08:45 Dose: 81 mg Documented by: Atorvastatin Calcium (Lipitor) 40 mg PO QHS [facility] Last Admin: 02/04/20 20:28 Dose: 40 mg Documented by: Clonidine HCl (Catapres-Tts1) 0.1 mg TRANSDERM. Q7D [facility] Last Admin: 02/02/20 04:50 Dose: 0.1 mg Documented by: Dextrose (D50w Syringe) 0 gm IV X1 PRN; Protocol PRN Reason: Hypoglycemia Dicyclomine HCl (Bentyl) 20 mg PO Q6H PRN PRN PRN Reason: abdominal discomfort Enoxaparin Sodium (Lovenox) 40 mg SC DAILY [facility] Last Admin: 02/05/20 08:45 Dose: 40 mg Documented by: Folic Acid (Folic Acid) 1 mg PO DAILY@0800 [facility] Last Admin: 02/05/20 08:45 Dose: 1 mg Documented by: Gabapentin (Neurontin) 300 mg PO Q8H PRN PRN PRN Reason: moderate to severe anxiety Glucagon () 1 mg IM .X1 PRN PRN Reason: Hypoglycemia Hydralazine HCl (Apresoline Iv) 10 mg IV Q4H PRN PRN PRN Reason: SBP more than 180 mmHg Hydroxyzine Pamoate (Vistaril Pamoate Capsule) 50 mg PO Q4H PRN PRN PRN Reason: mild anxiety Ceftriaxone Sodium (Rocephin) 1 gm in 50 mls @ 100 mls/hr IV Q24 [facility] Last Infusion: 02/05/20 09:17 Dose: Infused Documented by: Loperamide HCl (Imodium) 2 mg PO Q4H PRN PRN PRN Reason: LOOSE STOOLS Losartan Potassium (Cozaar) 50 mg PO DAILY [facility] Last Admin: 02/05/20 08:45 Dose: 50 mg Documented by: Morphine Sulfate () 2 mg IV Q3H PRN PRN PRN Reason: Pain Score 6-10/10 Last Admin: 02/05/20 03:09 Dose: 2 mg Documented by: Nicotine (Nicoderm Cq (Pbkc)) 14 mg TRANSDERM. DAILY [facility] Last Admin: 02/05/20 08:45 Dose: Not Given Documented by: Nutritional Formula (Lactose Free) (Ensure Enlive) 120 ml PO 4X/DAY [facility] Last Admin: 02/05/20 08:42 Dose: Not Given Documented by: Ondansetron HCl (Zofran) 4 mg IV Q8H PRN PRN PRN Reason: NAUSEA/VOMITING Last Admin: 02/05/20 08:54 Dose: 4 mg Documented by: Ondansetron HCl (Zofran) 8 mg PO Q8H PRN PRN PRN Reason: NAUSEA Last Admin: 02/04/20 20:28 Dose: 8 mg Documented by: Oxycodone HCl (Oxyir) 5 mg PO Q4H PRN PRN PRN Reason: Pain Score 4-5/10 Last Admin: 02/05/20 11:26 Dose: 5 mg Documented by: Phenobarbital (Phenobarbital) 64.8 mg PO Q6H [facility]; Taper Stop: 02/06/20 12:14 Last Admin: 02/05/20 11:32 Dose: 32.4 mg Documented by: Sodium Chloride () 10 - 40 ml IV UD PRN PRN Reason: SALINE FLUSH Last Admin: 02/05/20 08:54 Dose: 10 ml Documented by: Thiamine HCl (Vitamin B1) 100 mg PO DAILYCM [facility] Last Admin: 02/05/20 08:45 Dose: 100 mg Documented by: Trazodone HCl (Desyrel) 100 mg PO QHS PRN PRN Reason: INSOMNIA STROKE Vital Signs/Narrative: Vital Signs Temp Pulse Resp BP Pulse Ox 02/05/20 09:25 98.2 F 98 18 102/69 95 Medical Necessity - Tobacco Use Smoking Status: Current every day smoker Tobacco Use: Cigarettes Assessment/Plan All Active Problems Cystitis (Acute) Hypertensive urgency (Acute) 1. Nausea , vomiting, diarrhea - resolved. some nausea today, adjusted antiemetic regimen. 2. Acute cystitis - e coli on cx x2. rocephin continued. complete 5 days 3. HTN urgency - resolved. continue losartan, clonidine. 4. Alcoholism with acute withdrawal - continue phenobarb taper. 5. Homelessness - complicating compliance issues and increasing likeliness of poor prognosis 6. Chronic alcoholic hepatitis - refer to 180 at dc. 7. Nicotine abuse - patch DC planning: to [facility] when precert obtained. DVT ppx: lovenox This patient was seen by Manas Garcia PA-C under the supervision of Doctor Royce. <Blaise Crane - Last Filed: 02/05/20 16:12> Reason for Visit: Alcohol withdrawal syndrome. Subjective: Mild nausea. Patient was very anxious in the morning and has to give Ativan. Vitals/I&O's: Vital Signs Temp Pulse Resp BP Pulse Ox 97.9 F 98 17 101/68 94 02/05/20 15:25 02/05/20 15:25 02/05/20 15:25 02/05/20 15:25 02/05/20 15:25 Oxygen Delivery Method Room Air Weight: 93 lb 4.089 oz Body Mass Index (BMI) 16.5 Intake and Output for Last 24 Hours 02/03/20 02/04/20 02/05/20 23:59 23:59 23:59 Intake Total 1540 / 1540 1414 / 1414 1130 / 1130 Output Total 200 / 200 200 / 200 Balance 1340 / 1340 1414 / 1414 930 / 930 General: Alert, Oriented x3, Cooperative HEENT: Atraumatic, PERRLA, EOMI, Normocephalic Neck: Supple, No JVD, Negative Carotid Bruits Lungs: Clear to auscultation, Normal air movement, No rhonchi, No wheeze, No rales Cardiovascular: Regular rate, No murmurs Abdomen: Bowel Sounds Present, Soft, Non Tender, Non-Distended Extremities: No edema, Capillary Refill Less than 3 Seconds Skin: No rashes, No breakdown Musculoskeletal: No Tenderness to Palpation of Joints or Extremities, Arthritic Changes, Muscle Wasting Neurological: Cranial nerves II-XII grossly intact, Deep Tendon Reflexes 2+/4 and Symmetrical, Neuro grossly intact Psych/Mental Status: Normal Affect, Appropriate Microbiology Past 72 Hours 02/01/20 23:50 Urine, Clean Catch Urine Culture - Final Escherichia coli#2 Escherichia coli 02/02/20 00:30 Blood Culture (Wb) - Arm Left Blood Culture - Preliminary No growth in 48 hours. Laboratory Results 02/04/20 15:20: COVID-19 (DEMAR) Negative 02/04/20 15:20: COVID-19 (DEMAR) Cancelled 02/05/20 06:24: Sodium 134 L, Potassium 5.2 H, Chloride 104, Carbon Dioxide 26.0, Anion Gap 4 L, BUN 11, Creatinine 0.54 L, Estim Creat Clear Calc 75.83, Est GFR (MDRD) Af Amer 148, Est GFR (MDRD) Non-Af 122, BUN/Creatinine Ratio 20.3 H, Glucose 81, Calcium 7.3 L, Phosphorus 2.1 L, Magnesium 1.7 Current Medications Acetaminophen (Tylenol) 650 mg PO Q6H PRN PRN PRN Reason: Pain Score 1-3 /Temp>100.7 Aspirin (Aspirin, Baby) 81 mg PO DAILY@0800 [facility] Last Admin: 02/05/20 08:45 Dose: 81 mg Documented by: Atorvastatin Calcium (Lipitor) 40 mg PO QHS [facility] Last Admin: 02/04/20 20:28 Dose: 40 mg Documented by: Clonidine HCl (Catapres-Tts1) 0.1 mg TRANSDERM. Q7D [facility] Last Admin: 02/02/20 04:50 Dose: 0.1 mg Documented by: Dextrose (D50w Syringe) 0 gm IV X1 PRN; Protocol PRN Reason: Hypoglycemia Dicyclomine HCl (Bentyl) 20 mg PO Q6H PRN PRN PRN Reason: abdominal discomfort Enoxaparin Sodium (Lovenox) 40 mg SC DAILY [facility] Last Admin: 02/05/20 08:45 Dose: 40 mg Documented by: Folic Acid (Folic Acid) 1 mg PO DAILY@0800 [facility] Last Admin: 02/05/20 08:45 Dose: 1 mg Documented by: Gabapentin (Neurontin) 300 mg PO Q8H PRN PRN PRN Reason: moderate to severe anxiety Glucagon () 1 mg IM .X1 PRN PRN Reason: Hypoglycemia Hydralazine HCl (Apresoline Iv) 10 mg IV Q4H PRN PRN PRN Reason: SBP more than 180 mmHg Hydroxyzine Pamoate (Vistaril Pamoate Capsule) 50 mg PO Q4H PRN PRN PRN Reason: mild anxiety Ceftriaxone Sodium (Rocephin) 1 gm in 50 mls @ 100 mls/hr IV Q24 [facility] Last Infusion: 02/05/20 09:17 Dose: Infused Documented by: Loperamide HCl (Imodium) 2 mg PO Q4H PRN PRN PRN Reason: LOOSE STOOLS Losartan Potassium (Cozaar) 50 mg PO DAILY [facility] Last Admin: 02/05/20 08:45 Dose: 50 mg Documented by: Nicotine (Nicoderm Cq (Pbkc)) 14 mg TRANSDERM. DAILY [facility] Last Admin: 02/05/20 08:45 Dose: Not Given Documented by: Ondansetron HCl (Zofran) 4 mg IV Q8H PRN PRN PRN Reason: NAUSEA/VOMITING Last Admin: 02/05/20 08:54 Dose: 4 mg Documented by: Ondansetron HCl (Zofran) 8 mg PO Q8H PRN PRN PRN Reason: NAUSEA Last Admin: 02/04/20 20:28 Dose: 8 mg Documented by: Phenobarbital (Phenobarbital) 32.4 mg PO Q6H [facility]; Taper Stop: 02/06/20 12:14 Last Admin: 02/05/20 11:32 Dose: 32.4 mg Documented by: Promethazine HCl (Phenergan Tablet) 25 mg PO Q6H PRN PRN PRN Reason: NAUSEA/VOMITING Sodium Chloride () 10 - 40 ml IV UD PRN PRN Reason: SALINE FLUSH Last Admin: 02/05/20 08:54 Dose: 10 ml Documented by: Thiamine HCl (Vitamin B1) 100 mg PO DAILYCM [facility] Last Admin: 02/05/20 08:45 Dose: 100 mg Documented by: Trazodone HCl (Desyrel) 100 mg PO QHS PRN PRN Reason: INSOMNIA STROKE Vital Signs/Narrative: Vital Signs Temp Pulse Resp BP Pulse Ox 02/05/20 15:25 97.9 F 98 17 101/68 94 02/05/20 15:00 105 H Assessment/Plan This patient was seen in conjunction with Manas BEJARANO. I have independently interviewed and examined the patient and reviewed pertinent history, examination findings, laboratory and plan of management. I have reviewed the note and agree with the documented findings with the few additional points. The patient is a 59 year old F with a significant history of esophageal stricture status post 2 esophageal dilatation and surgery; alcoholism; and hypertension who presents at the emergency department with weakness; abdominal pain; malaise; nausea; vomiting and diarrhea; and with abnormal urinalysis 1. Acute on chronic diarrhea, nausea and vomiting rule out acute gastroenteritis on baseline chronic alcohol use and esophageal stricture: Stool test are pending including intake bacteriology panel and C. difficile. Alcohol might cause acute/chronic gastritis along with enteritis and malabsorption. Advised alcohol cessation. Lactic acidosis may be secondary to hypoperfusion from diarrhea. Blood culture negative for more than 48 hours. Diarrhea has resolved. 2. Hypertensive urgency: Blood pressure was 202/128. Still elevated. May be secondary to chronic alcohol use. On clonidine. Losartan added. Neurology 10 mg IV every 4 hourly as needed. Blood pressure more than 180. Titrate antihypertensive medication for blood pressure parameters. Patient blood pressure was controlled with clonidine, dose tapered and discontinued today. 3. Partially treated UTI, gram-negative malick: Denies lower urinary tract symptoms including dysuria, increased urgency but increased frequency. UA WBC 0-5 cells, bacteria 2+, LE 25 nitrite positive. Mostly patient received ceftriaxone after urine culture was collected. Ceftriaxone continued. 3 days of IV antibiotics will be enough. Preliminary urine cultures reported and gram-negative malick 50,000-80,000 and gram-negative malick lactose department to 5000-80,000 colonies most likely partially treated UTI or contamination. Last dose of IV ceftriaxone on 02/06/2020 4. Chronic alcohol use and dependence: On phenobarbital and adjunctive medications for medical stabilization. Electrolyte abnormality: Initially mild hypokalemia and hypomagnesemia: Potassium and magnesium replaced. Last K5.2. Potassium discontinued. 5. Chronic esophageal stricture status post dilatation esophagus in [facility]: Follow-up as an outpatient. 6. Chronic alcoholic hepatitis: Transaminases have been elevated in the past and currently AST 56. 7. Chronic smoking/nicotine. Dependence: On nicotine patch DVT prophylaxis Subcutaneous Lovenox. I have discussed my assessment with Manas BEJARANO and orders have been reviewed. Inpatient E&M: 14189 Subs Hosp L2
--- NOTE | 2020-02-05 11:55 | CASEMGMT ---
PAVEL received a phone call from [facility] and she said they cannot take patient as she never paid anything on her outstanding bill from the last time she was there and it was sent to collections. PAVEL called patient's POA and let her know this information. She will check with patient's daughter and get back to PAVEL. Ginette KEENE MSW
--- NOTE | 2020-02-05 12:52 | CASEMGMT ---
SW called patient's POA, Flaca and she said [facility] is ok. SW called [facility] with referral and also faxed information. Await response from [facility]. Ginette KEENE MSW
[2020-02-05] MEDS: LORazepam 2 MG/ML Syringe 1 MG IV (13:03)
--- NOTE | 2020-02-05 15:32 | CASEMGMT ---
PAVEL received a call from [facility] and they can accept patient. She will start the process to obtain insurance authorization. PAVEL went to notify patient of the change, but she was sleeping. PAVEL will notify her tomorrow. Plan: PAVEL pending insurance approval. Ginette HILLMAN
--- NOTE | 2020-02-05 21:40 | NURSING ---
Patient's brother, carli Coleman, called in to get update on pt. With patient's permission, update was given. Brother had no questions.
[2020-02-05] MEDS: Atorvastatin Calcium 40 MG Tablet PO (21:59)
[2020-02-06 02:59] VITALS: PULSE 93
[2020-02-06 03:25] VITALS: BP 143/99; PULSE 97; RESP 18; TEMP 36.6; O2SAT 97
[2020-02-06] MEDS: Phenobarbital 32.4 MG Tablet PO (05:42)
[2020-02-06] MEDS: hydrOXYzine PAM 25 MG Capsule 50 MG PO (05:45)
[2020-02-06] MEDS: Acetaminophen 325 MG Tablet 650 MG PO (05:46)
[2020-02-06 06:56] LABS: Anion Gap 6 (5-15); BUN 11 mg/dL (7-18); BUN/Creat Ratio 20.4 RATIO (10-20); Calcium,Total 7.2 mg/dL (8.5-10.1); Chloride 103 mmol/L (98-107); Creatinine, Serum 0.54 mg/dL (0.55-1.02); EST Glomerular Filtration Rate 124 mL/min (>60); Est Glom Filt Rate - Afr Amer 149 mL/min (>60); Estimated Creatinine Clearance 75.83 ml/min; Glucose 104 mg/dL (74-106); Magnesium 1.9 mg/dL (1.6-2.6); Potassium 4.7 mmol/L (3.5-5.1); Sodium Level 134 mmol/L (136-145)
[2020-02-06 07:00] VITALS: PULSE 91
[2020-02-06] MEDS: Folic Acid 1 MG Tablet PO (09:01)
[2020-02-06] MEDS: Aspirin 81 MG TAB.CHEW PO (09:01)
[2020-02-06] MEDS: Magnesium Oxide 400 MG Tablet 800 MG PO (09:02)
[2020-02-06] MEDS: Thiamine Hydrochloride 100 MG Tablet PO (09:02)
[2020-02-06] MEDS: Enoxaparin 40 MG/0.4 ML Syringe SC (09:02)
[2020-02-06] MEDS: Losartan Potassium 50 MG Tablet PO (09:02)
[2020-02-06] MEDS: Ceftriaxone 1 GM/50 ML BAG IV (09:03)
[2020-02-06] MEDS: traMADol 50 MG Tablet PO (09:04)
--- NOTE | 2020-02-06 09:17 | CASEMGMT ---
Received voice mail from Arlene at [facility] and they received approval for patient. PAVEL notified PA and patient will be discharged today. Ginette HILLMAN
[2020-02-06 09:52] VITALS: BP 132/92; PULSE 97; RESP 16; TEMP 37.1; O2SAT 96
--- NOTE | 2020-02-06 11:21 | PCM.EXTCARCO ---
- Diet 02/02/20 03:47 Diet: Regular Diet Food consistency:: Regular Liquid Consistency:: Regular/Thin Type of Dietary Supplement:: ensure - Routine Orders/Code Status Suppository Type: Dulcolax 10mg Suppository Frequency: Daily PRN Routine Lab Work: CBC - 1 week, BMP - 3 days Code Status: Full Code - Therapies Physical Therapy: Eval and Treat Occupational Therapy: Eval and Treat Speech Therapy: Eval and Treat - Problem/Diagnosis (1) Cystitis Status: Acute Current Visit: Yes (2) Hypertensive urgency Status: Acute Current Visit: Yes (3) Benign essential HTN Status: Chronic Current Visit: No (4) Depression Status: Chronic Current Visit: No (5) Esophageal stricture Status: Chronic Current Visit: No (6) EtOH dependence Status: Chronic Current Visit: No (7) Gastroesophageal reflux disease Status: Chronic Current Visit: No (8) HLD (hyperlipidemia) Status: Chronic Current Visit: No (9) History of CVA (cerebrovascular accident) Status: Chronic Current Visit: No (10) Homelessness Status: Chronic Current Visit: Yes (11) Chronic alcoholic hepatitis Status: Chronic Current Visit: Yes - Allergies/Procedures Done in Hospital Allergies/Adverse Reactions: Allergies No Known Allergies Allergy (Verified 12/16/19 19:22) - Type of Care/Length of Stay Estimated LOS: Convalescent Care Less Than 30 days Type of Care Needed: Skilled Rehab Potential: Fair Prognosis: Fair - Additional Orders/Day of Discharge Day of Discharge: 02/06/20 - Dietary and Speech Recommendations Dietitian Recommendations/Changes: Rec OCCUPATIONAL HEALTH PHYSICIAN consult as indicated as pt w/ hx dysphagia. Continue Regular diet w/ texture modification per OCCUPATIONAL HEALTH PHYSICIAN. - Follow Up Care Primary Care Physician: Care Physician,No Primary [Primary Care Provider] - Please follow up with your Primary Care Physician in: 1-2 weeks
--- NOTE | 2020-02-06 11:43 | NURSING ---
Flaca JACOBSON updated on pt's POC
--- NOTE | 2020-02-06 12:09 | PHA.DC.MR ---
Pharmacy Service has performed discharge medication reconciliation for this patient. The patient's discharge medication list was reviewed for discrepancies and discrepancies were resolved. Home Medications Aspirin [Aspirin, Baby] 81 mg PO DAILY@0800 02/02/20 Atorvastatin Calcium 40 mg PO QHS 02/02/20 Furosemide [Lasix] 20 mg PO DAILY 02/02/20 Acetaminophen [Tylenol Tablet] 650 mg PO Q6H PRN PRN tab 02/06/20 Clonidine Patch [Catapres-Tts1] 0.1 mg TRANSDERM. Q7D patch 02/06/20 Losartan Potassium [Cozaar] 50 mg PO DAILY tab 02/06/20 proMETHazine tablet [Phenergan tablet] 25 mg PO Q6H PRN PRN tab 02/06/20 traMADol [Ultram] 50 mg PO Q6H PRN PRN 3 Days #12 tab 02/06/20
--- NOTE | 2020-02-06 13:08 | CASEMGMT ---
PAVEL faxed orders to [facility]. PAVEL completed convalescent on [facility]. PAVEL called [facility] to set up wc van transport. PAVEL let [facility] know that [facility] is contracted with [facility]. PAVEL was told they are not contracted with [facility] for wc van. They will continue to try and find wc van transport for patient and call when they have someone. Await return call for transport. Ginette KEENE L[employer]OGRAPHIC RETOUCHER APPRENTICE
[2020-02-06 14:30] VITALS: BP 139/89; PULSE 90; RESP 14; TEMP 36.8; O2SAT 95
--- NOTE | 2020-02-06 14:32 | PCM.DC.SUM ---
<Manas Garcia - Last Filed: 02/06/20 14:32> Discharge Date and Diagnosis - Problem List Patient Problems: Active and Suspected Problems Cystitis (Acute) Hypertensive urgency (Acute) Date of Admission: 02/02/20 Date of Discharge: 02/06/20 - Primary Discharge Diagnosis Acute Problems: Active Problems Cystitis 2/2 E coli Hypertensive urgency Alcohol abuse with acute withdrawal Homelessness Chronic alcoholic hepatitis Nicotine abuse - Secondary Discharge Diagnosis Chronic Problems: Chronic Problems Homelessness (Chronic) Chronic alcoholic hepatitis (Chronic) EtOH dependence (Chronic) Dysphagia (Chronic) Esophageal stricture (Chronic) History of CVA (cerebrovascular accident) (Chronic) HLD (hyperlipidemia) (Chronic) Gastroesophageal reflux disease (Chronic) Depression (Chronic) Benign essential HTN (Chronic) Hospital Course and Treatment Imaging Results: CT/Abdomen/Pelvis without Cont IMPRESSION: 1. Widespread fatty infiltration of the liver and perihepatic tiny ascites in keeping with hepatocellular disease. No splenomegaly. 2. Constipation pattern. Generalized mild mural thickening of the colon, more so at the right hemicolon but without definite CT findings of colitis. If there is hypoproteinemia, bowel wall thickening may be seen in this setting. 3. Left renal mild atrophy and mild scarring. No hydronephrosis. 4. Chronic findings include moderate hiatal hernia and atherosclerotic calcifications. Individualized dose optimization techniques were used for this CT. Operations: None Procedures: None Summary of Care Provided: Hospital course: The patient is a 59 year old F of nicotine abuse, alcoholism, chronic alcoholic hepatitis, homelessness, esophageal strictures, who presented to the emergency room with weakness stating she was too weak to stand up. She was found by her POA covered in stool. She had nausea vomiting and diarrhea as well. She was found to have a urinary tract infection in the emergency room per UA, with an elevated lactic acid at 2.4, CT of the abdomen showing fatty infiltration of the liver and perihepatic ascites, constipation, left renal atrophy, moderate hiatal hernia. She was felt to have a urinary tract infection admitted to the PCU on telemetry. She was placed on alcohol withdrawal protocol with phenobarbital. She was given Rocephin for UTI. Her urine culture demonstrated E. coli susceptible to Rocephin, she completed 5 days of therapy while here. She has issues with chronic nausea which was controlled with Phenergan. She completed the phenobarbital taper while here she remained significantly weak and senior living placement was agreed upon. She was discharged to senior living in stable condition. She will need follow-up with her PCP in 1 to 2 weeks. This patient was seen by Manas Garcia PA-C under the supervision of Doctor Royce. [] Patient Problems: Active and Suspected Problems Cystitis (Acute) Hypertensive urgency (Acute) - Physical Exam Vitals/I&O's: Vital Signs Temp Pulse Resp BP Pulse Ox 98.7 F 97 16 132/92 H 96 02/06/20 09:52 02/06/20 09:52 02/06/20 09:52 02/06/20 09:52 02/06/20 09:52 Oxygen Delivery Method Room Air Weight: 93 lb 4.089 oz Body Mass Index (BMI) 16.5 Intake and Output for Last 24 Hours 02/04/20 02/05/20 02/06/20 23:59 23:59 23:59 Intake Total 1414 / 1414 1650 / 1650 850 / 850 Output Total 700 / 700 200 / 200 Balance 1414 / 1414 950 / 950 650 / 650 General: Alert, Oriented x3, Cooperative HEENT: Atraumatic, PERRLA, EOMI, Normocephalic Neck: Supple, No JVD, Negative Carotid Bruits Lungs: Clear to auscultation, Normal air movement Cardiovascular: Regular rate, No murmurs Abdomen: Bowel Sounds Present, Soft, Non Tender Extremities: No edema, Capillary Refill Less than 3 Seconds Skin: No rashes, No breakdown Musculoskeletal: No Tenderness to Palpation of Joints or Extremities Neurological: Cranial nerves II-XII grossly intact Psych/Mental Status: Normal Affect, Appropriate, Alert and oriented to time, place, person, mood and affect Microbiology Past 72 Hours 02/01/20 23:50 Urine, Clean Catch Urine Culture - Final Escherichia coli#2 Escherichia coli 02/02/20 00:30 Blood Culture (Wb) - Arm Left Blood Culture - Preliminary No growth in 48 hours. Laboratory Results 02/06/20 05:46: Sodium 134 L, Potassium 4.7, Chloride 103, Carbon Dioxide 25.0, Anion Gap 6, BUN 11, Creatinine 0.54 L, Estim Creat Clear Calc 75.83, Est GFR (MDRD) Af Amer 149, Est GFR (MDRD) Non-Af 124, BUN/Creatinine Ratio 20.4 H, Glucose 104, Calcium 7.2 L, Magnesium 1.9 Current Medications Acetaminophen (Tylenol) 650 mg PO Q6H PRN PRN PRN Reason: Pain Score 1-3 /Temp>100.7 Last Admin: 02/06/20 05:46 Dose: 650 mg Documented by: Aspirin (Aspirin, Baby) 81 mg PO DAILY@0800 COUNT INCLUDES THE [facility] Last Admin: 02/06/20 09:01 Dose: 81 mg Documented by: Atorvastatin Calcium (Lipitor) 40 mg PO QHS COUNT INCLUDES THE [facility] Last Admin: 02/05/20 21:59 Dose: 40 mg Documented by: Clonidine HCl (Catapres-Tts1) 0.1 mg TRANSDERM. Q7D COUNT INCLUDES THE [facility] Last Admin: 02/02/20 04:50 Dose: 0.1 mg Documented by: Dextrose (D50w Syringe) 0 gm IV X1 PRN; Protocol PRN Reason: Hypoglycemia Dicyclomine HCl (Bentyl) 20 mg PO Q6H PRN PRN PRN Reason: abdominal discomfort Enoxaparin Sodium (Lovenox) 40 mg SC DAILY COUNT INCLUDES THE [facility] Last Admin: 02/06/20 09:02 Dose: 40 mg Documented by: Folic Acid (Folic Acid) 1 mg PO DAILY@0800 COUNT INCLUDES THE [facility] Last Admin: 02/06/20 09:01 Dose: 1 mg Documented by: Gabapentin (Neurontin) 300 mg PO Q8H PRN PRN PRN Reason: moderate to severe anxiety Glucagon () 1 mg IM .X1 PRN PRN Reason: Hypoglycemia Hydralazine HCl (Apresoline Iv) 10 mg IV Q4H PRN PRN PRN Reason: SBP more than 180 mmHg Hydroxyzine Pamoate (Vistaril Pamoate Capsule) 50 mg PO Q4H PRN PRN PRN Reason: mild anxiety Last Admin: 02/06/20 05:45 Dose: 50 mg Documented by: Ceftriaxone Sodium (Rocephin) 1 gm in 50 mls @ 100 mls/hr IV Q24 COUNT INCLUDES THE [facility] Stop: 02/06/20 23:59 Last Infusion: 02/06/20 09:39 Dose: Infused Documented by: Loperamide HCl (Imodium) 2 mg PO Q4H PRN PRN PRN Reason: LOOSE STOOLS Losartan Potassium (Cozaar) 50 mg PO DAILY COUNT INCLUDES THE [facility] Last Admin: 02/06/20 09:02 Dose: 50 mg Documented by: Nicotine (Nicoderm Cq (Pbkc)) 14 mg TRANSDERM. DAILY COUNT INCLUDES THE [facility] Last Admin: 02/06/20 09:03 Dose: Not Given Documented by: Ondansetron HCl (Zofran) 4 mg IV Q8H PRN PRN PRN Reason: NAUSEA/VOMITING Last Admin: 02/05/20 08:54 Dose: 4 mg Documented by: Ondansetron HCl (Zofran) 8 mg PO Q8H PRN PRN PRN Reason: NAUSEA Last Admin: 02/04/20 20:28 Dose: 8 mg Documented by: Promethazine HCl (Phenergan Tablet) 25 mg PO Q6H PRN PRN PRN Reason: NAUSEA/VOMITING Sodium Chloride () 10 - 40 ml IV UD PRN PRN Reason: SALINE FLUSH Last Admin: 02/05/20 22:01 Dose: 10 ml Documented by: Thiamine HCl (Vitamin B1) [facility] Last Admin: 02/06/20 09:02 Dose: 100 mg Documented by: Tramadol HCl (Ultram) 50 mg PO Q6H PRN PRN PRN Reason: Pain Score 4-10/10 Last Admin: 02/06/20 09:04 Dose: 50 mg Documented by: Trazodone HCl (Desyrel) 100 mg PO QHS PRN PRN Reason: INSOMNIA Discharge Diet: Low fat/ Low Cholesterol, 2000 mg Sodium Diet, - - no alcohol at all Discharge Activity: Return to Normal Activity Home Medications: Medications to take at Discharge Aspirin [Aspirin, Baby] 81 mg PO DAILY@0800 02/02/20 Atorvastatin Calcium 40 mg PO QHS 02/02/20 Furosemide [Lasix] 20 mg PO DAILY 02/02/20 Acetaminophen [Tylenol Tablet] 650 mg PO Q6H PRN PRN tab 02/06/20 Clonidine Patch [Catapres-Tts1] 0.1 mg TRANSDERM. Q7D patch 02/06/20 Losartan Potassium [Cozaar] 50 mg PO DAILY tab 02/06/20 proMETHazine tablet [Phenergan tablet] 25 mg PO Q6H PRN PRN tab 02/06/20 traMADol [Ultram] 50 mg PO Q6H PRN PRN 3 Days #12 tab 02/06/20 Following Prescrptions Were Given to Patient: traMADol [Ultram] 50 mg PO Q6H PRN PRN 3 Days #12 tab PRN Reason: Pain Score 4-10/10 Prescription Printed Primary Care Physician: Care Physician,No Primary [Primary Care Provider] - Please follow up with your Primary Care Physician in: 1-2 weeks Disposition: [facility] facility Minutes spent on discharge:: 35 Patient Condition:: Stable Medical Necessity - Tobacco Use Smoking Status: Current every day smoker Tobacco Use: Cigarettes Meaningful Use Info Meaningful Use Diagnoses (Choose all that apply): None applicable <RoyceBlaise - Last Filed: 02/06/20 15:13> Discharge Date and Diagnosis - Primary Discharge Diagnosis Acute Problems: Active Problems Cystitis (Acute) Hypertensive urgency (Acute) - Secondary Discharge Diagnosis Chronic Problems: Chronic Problems Homelessness (Chronic) Chronic alcoholic hepatitis (Chronic) EtOH dependence (Chronic) Dysphagia (Chronic) Esophageal stricture (Chronic) History of CVA (cerebrovascular accident) (Chronic) HLD (hyperlipidemia) (Chronic) Gastroesophageal reflux disease (Chronic) Depression (Chronic) Benign essential HTN (Chronic) Hospital Course and Treatment Summary of Care Provided: This patient was seen in conjunction with Manas BEJARANO. I have independently interviewed and examined the patient and reviewed pertinent history, examination findings, laboratory and plan of management. I have reviewed the note and agree with the documented findings with the few additional points. The patient is a 59 year old F with a significant history of esophageal stricture status post 2 esophageal dilatation and surgery; alcoholism; and hypertension who presents at the emergency department with weakness; abdominal pain; malaise; nausea; vomiting and diarrhea; and with abnormal urinalysis 1. Acute on chronic diarrhea, nausea and vomiting rule out acute gastroenteritis on baseline chronic alcohol use and esophageal stricture: Stool test are pending including intake bacteriology panel and C. difficile. Alcohol might cause acute/chronic gastritis along with enteritis and malabsorption. Advised alcohol cessation. Lactic acidosis may be secondary to hypoperfusion from diarrhea. Blood culture negative for more than 48 hours. Diarrhea has resolved. 2. Hypertensive urgency: Blood pressure was 202/128. Still elevated. May be secondary to chronic alcohol use. On clonidine. Losartan added. Neurology 10 mg IV every 4 hourly as needed. Blood pressure more than 180. Titrate antihypertensive medication for blood pressure parameters. Patient blood pressure was controlled with clonidine, dose tapered and discontinued . 3. Partially treated UTI, gram-negative malick: Denies lower urinary tract symptoms including dysuria, increased urgency but increased frequency. UA WBC 0-5 cells, bacteria 2+, LE 25 nitrite positive. Mostly patient received ceftriaxone after urine culture was collected. Ceftriaxone continued. Preliminary urine cultures reported and gram-negative malick 50,000-80,000 and gram-negative malick lactose department to 5000-80,000 colonies most likely partially treated UTI or contamination. Patient completed 4 days of IV ceftriaxone. No further requirement/indication of antibiotic. 4. Chronic alcohol use and dependence: On phenobarbital and adjunctive medications for medical stabilization. Electrolyte abnormality: Initially mild hypokalemia and hypomagnesemia: Potassium and magnesium replaced. Last K4.7. 5. Chronic esophageal stricture status post dilatation esophagus in [facility]: Follow-up as an outpatient. 6. Chronic alcoholic hepatitis: Transaminases have been elevated in the past and currently AST 56. 7. Chronic smoking/nicotine. Dependence: On nicotine patch DVT prophylaxis Subcutaneous Lovenox. Discharge medication reconciliation done. Discharge follow-up instructions completed. Discharge process discussed with the patient and all questions were answered to patient's satisfaction. Total time spent, exact 35 minutes on discharge meds reconciliation, examination, coordination of care with nurses and ancillary staff, review of imaging and blood test and discussion with the patient on follow-up instructions I have discussed my assessment with Manas BEJARANO and orders have been reviewed. [] Objective: Patient symptoms are well controlled. Patient was treated with 4 days of IV ceftriaxone. Denies burning micturition or increased frequency. No further requirement of antibiotic. - Physical Exam Vitals/I&O's: Vital Signs Temp Pulse Resp BP Pulse Ox 98.2 F 90 14 139/89 H 95 02/06/20 14:30 02/06/20 14:30 02/06/20 14:30 02/06/20 14:30 02/06/20 14:30 Oxygen Delivery Method Room Air Weight: 93 lb 4.089 oz Body Mass Index (BMI) 16.5 Intake and Output for Last 24 Hours 02/04/20 02/05/20 02/06/20 23:59 23:59 23:59 Intake Total 1414 / 1414 1650 / 1650 850 / 850 Output Total 700 / 700 200 / 200 Balance 1414 / 1414 950 / 950 650 / 650 General: Alert, Oriented x3, Cooperative HEENT: Atraumatic, PERRLA, EOMI, Normocephalic Neck: Supple, No JVD, Negative Carotid Bruits Lungs: Clear to auscultation, Normal air movement, No rhonchi, No wheeze, No rales Cardiovascular: Regular rate, No murmurs Abdomen: Bowel Sounds Present, Soft, Non Tender Extremities: No edema, Capillary Refill Less than 3 Seconds Skin: No rashes, No breakdown Musculoskeletal: No Tenderness to Palpation of Joints or Extremities, Arthritic Changes, Muscle Wasting Neurological: Cranial nerves II-XII grossly intact, Deep Tendon Reflexes 2+/4 and Symmetrical, Neuro grossly intact, - - Mild lower extremity weakness., Chronic most relief because of arthritis and decreased muscle mass., Physical deconditioning Psych/Mental Status: Normal Affect, Appropriate Microbiology Past 72 Hours 02/01/20 23:50 Urine, Clean Catch Urine Culture - Final Escherichia coli#2 Escherichia coli 02/02/20 00:30 Blood Culture (Wb) - Arm Left Blood Culture - Preliminary No growth in 48 hours. Laboratory Results 02/06/20 05:46: Sodium 134 L, Potassium 4.7, Chloride 103, Carbon Dioxide 25.0, Anion Gap 6, BUN 11, Creatinine 0.54 L, Estim Creat Clear Calc 75.83, Est GFR (MDRD) Af Amer 149, Est GFR (MDRD) Non-Af 124, BUN/Creatinine Ratio 20.4 H, Glucose 104, Calcium 7.2 L, Magnesium 1.9 Current Medications Acetaminophen (Tylenol) 650 mg PO Q6H PRN PRN PRN Reason: Pain Score 1-3 /Temp>100.7 Last Admin: 02/06/20 05:46 Dose: 650 mg Documented by: Aspirin (Aspirin, Baby) 81 mg PO DAILY@0800 COUNT INCLUDES THE [facility] Last Admin: 02/06/20 09:01 Dose: 81 mg Documented by: Atorvastatin Calcium (Lipitor) 40 mg PO QHS COUNT INCLUDES THE [facility] Last Admin: 02/05/20 21:59 Dose: 40 mg Documented by: Clonidine HCl (Catapres-Tts1) 0.1 mg TRANSDERM. Q7D COUNT INCLUDES THE [facility] Last Admin: 02/02/20 04:50 Dose: 0.1 mg Documented by: Dextrose (D50w Syringe) 0 gm IV X1 PRN; Protocol PRN Reason: Hypoglycemia Dicyclomine HCl (Bentyl) 20 mg PO Q6H PRN PRN PRN Reason: abdominal discomfort Enoxaparin Sodium (Lovenox) 40 mg SC DAILY COUNT INCLUDES THE [facility] Last Admin: 02/06/20 09:02 Dose: 40 mg Documented by: Folic Acid (Folic Acid) 1 mg PO DAILY@0800 COUNT INCLUDES THE [facility] Last Admin: 02/06/20 09:01 Dose: 1 mg Documented by: Gabapentin (Neurontin) 300 mg PO Q8H PRN PRN PRN Reason: moderate to severe anxiety Glucagon () 1 mg IM .X1 PRN PRN Reason: Hypoglycemia Hydralazine HCl (Apresoline Iv) 10 mg IV Q4H PRN PRN PRN Reason: SBP more than 180 mmHg Hydroxyzine Pamoate (Vistaril Pamoate Capsule) 50 mg PO Q4H PRN PRN PRN Reason: mild anxiety Last Admin: 02/06/20 05:45 Dose: 50 mg Documented by: Ceftriaxone Sodium (Rocephin) 1 gm in 50 mls @ 100 mls/hr IV Q24 COUNT INCLUDES THE [facility] Stop: 02/06/20 23:59 Last Infusion: 02/06/20 09:39 Dose: Infused Documented by: Loperamide HCl (Imodium) 2 mg PO Q4H PRN PRN PRN Reason: LOOSE STOOLS Losartan Potassium (Cozaar) 50 mg PO DAILY COUNT INCLUDES THE [facility] Last Admin: 02/06/20 09:02 Dose: 50 mg Documented by: Nicotine (Nicoderm Cq (Pbkc)) 14 mg TRANSDERM. DAILY COUNT INCLUDES THE [facility] Last Admin: 02/06/20 09:03 Dose: Not Given Documented by: Ondansetron HCl (Zofran) 4 mg IV Q8H PRN PRN PRN Reason: NAUSEA/VOMITING Last Admin: 02/05/20 08:54 Dose: 4 mg Documented by: Ondansetron HCl (Zofran) 8 mg PO Q8H PRN PRN PRN Reason: NAUSEA Last Admin: 02/04/20 20:28 Dose: 8 mg Documented by: Promethazine HCl (Phenergan Tablet) 25 mg PO Q6H PRN PRN PRN Reason: NAUSEA/VOMITING Sodium Chloride () 10 - 40 ml IV UD PRN PRN Reason: SALINE FLUSH Last Admin: 02/05/20 22:01 Dose: 10 ml Documented by: Thiamine HCl (Vitamin B1) [facility] Last Admin: 02/06/20 09:02 Dose: 100 mg Documented by: Tramadol HCl (Ultram) 50 mg PO Q6H PRN PRN PRN Reason: Pain Score 4-10 Last Admin: 02/06/20 09:04 Dose: 50 mg Documented by: Trazodone HCl (Desyrel) 100 mg PO QHS PRN PRN Reason: INSOMNIA Inpatient E&M: 93358 Disch Hosp
--- NOTE | 2020-02-06 14:39 | CASEMGMT ---
[facility] arrived to pick patient up. Plan: CC under skilled level of care on a convalescent stay. [facility] transported. This was arranged through [facility] [employer]. Ginette HILLMAN
--- NOTE | 2020-02-06 14:57 | NURSING ---
report called to [facility] MANAGER INTERNAL
== END 2020-02-06 15:00 | disposition skilled nursing facility (03) | DRG 690 ==
LOC: ED 23:25 → PCU 02-02 03:22
PROVIDERS: Physician Assistant; Admitting Provider Hospitalist; Emergency Provider Emergency Medicine; Visit Provider Internal Medicine
DX: N30.00 Acute cystitis without hematuria (principal); E87.2 Acidosis; F10.288 Alcohol dependence with other alcohol-induced disorder; F10.239 Alcohol dependence with withdrawal, unspecified; E44.0 Moderate protein-calorie malnutrition; Z68.1 Body mass index [BMI] 19.9 or less, adult; B96.20 Unspecified Escherichia coli [E. coli] as the cause of diseases classified elsewhere; K70.10 Alcoholic hepatitis without ascites; Y90.7 Blood alcohol level of 200-239 mg/100 ml; I16.0 Hypertensive urgency; E86.0 Dehydration; K22.2 Esophageal obstruction; E83.42 Hypomagnesemia; E87.6 Hypokalemia; K21.9 Gastro-esophageal reflux disease without esophagitis; I10 Essential (primary) hypertension; E78.5 Hyperlipidemia, unspecified; K52.9 Noninfective gastroenteritis and colitis, unspecified; F32.9 Major depressive disorder, single episode, unspecified; F41.9 Anxiety disorder, unspecified; F17.210 Nicotine dependence, cigarettes, uncomplicated; Z59.0 Homelessness; Z79.82 Long term (current) use of aspirin; Z79.899 Other long term (current) drug therapy; Z86.73 Personal history of transient ischemic attack (TIA), and cerebral infarction without residual deficits
CPT/HCPCS: 36415; 74176; 80048; 80076; 80320; 81001; 83605; 83690; 83735; 84100; 85025; 85610; 87040; 87077; 87086; 87088; 87186; 87635; 97110; 97116; 97162; 97165; 97530; 97802; 99285; G2023; J7030; J7050; A4216; G0480; J2405; U0003

== ENCOUNTER → 2020-02-21 14:56 | Outpatient (CLI) | payer MEDICARE, MEDICAID, SELFPAY ==
[2020-02-02 03:24] VITALS: BMI 16.5
--- NOTE | 2020-02-21 14:59 | VDLE_ITS ---
Reason For Study: Edema RIGHT LEFT GSV is normal. GSV is normal. CFV is compressible, spontaneous, phasic, CFV is compressible, spontaneous, phasic, competent and demonstrates normal competent, and demonstrates normal augmentation. augmentation. FV is compressible, spontaneous, phasic, FV is compressible, spontaneous, phasic, competent and demonstrates normal competent and demonstrates normal augmentation. augmentation. POP V is compressible, spontaneous, phasic, POP V is compressible, spontaneous, phasic, competent and demonstrates normal competent and demonstrates normal augmentation. augmentation. T/P Trunk is compressible. T/P Trunk is compressible. PTV is compressible. PTV is compressible. RT PerV is compressible. LT PerV is compressible. Procedure Exam performed in department. A preliminary report was called and/or faxed to [facility]. Interpretation Summary Deep veins of the lower extremities are bilaterally patent and compressible segmentally. There is no evidence of deep vein thrombosis on either side. Valvular competence appears intact within the proximal deep venous systems bilaterally. The great saphenous veins appear bilaterally patent and compressible segmentally. Ordering Physician: Sha Mckay Performed By: Felicia Eddy RVT
== END ==
PROVIDERS: Referring Provider Student in an Organized Health Care Education/Training Program; Visit Provider Student in an Organized Health Care Education/Training Program
DX: R60.0 Localized edema (principal)
CPT/HCPCS: 93970

== ENCOUNTER 2020-03-05 22:30 | Emergency (ER) | payer MEDICARE, MEDICAID, SELFPAY ==
[2020-02-02 03:24] VITALS: BMI 16.5
[2020-03-05 22:32] VITALS: BP 175/112; PULSE 89; RESP 18; TEMP 36.4; O2SAT 98; BMI 17.3
--- NOTE | 2020-03-05 22:47 | CT_ITS ---
STUDY: CT BRAIN WITHOUT CONTRAST REASON FOR EXAM: Female, 59 years old. Headache for 2 weeks. Chronic neck pain. RADIATION DOSAGE (If Supplied By Facility): CTDIvol = ( 44.99 ) mGy, DLP = ( 779.24 ) mGycm TECHNIQUE: Transaxial CT imaging of the brain was performed without administration of intravenous contrast material. Individualized dose optimization techniques were used for this CT. COMPARISON: June 27, 2019. FINDINGS: Normal soft tissue structures. Normal calvarium. Normal size ventricles and extra-axial spaces for the patient''s age. Normal white matter tracts of the cerebral hemispheres. Normal basal ganglia and thalami. Normal brainstem. Normal cerebellum. There is no intracranial hemorrhage. There are no findings of an acute ischemic infarction. Normal visualized paranasal sinuses. Decreased aeration of mastoid air cells unchanged. From the window unit air conditioning mechanic view, lower cervical fusion. CT/Brain/Head without Contrast IMPRESSION: No acute intracranial abnormality. Electronically Signed: Alverto Root MD at 0:08 EDT , Service support ,
--- NOTE | 2020-03-05 22:48 | ED.DCSUM_ITS ---
History of Present Illness Chief Complaint: Headache Informant: Patient Onset: Days - 3 Context: Gradual Onset Timing: Continuous Quality: pain Location: all throughout back, from tailbone to head Current Severity: Severe Maximum Severity: Severe Worsened by: any movement makes everything worse Relieved by: remaining still Associated Symptoms: n/v Narrative: Patient presents with chronic pain throughout her entire back, that is worse in the past 3 days, in addition to sharp bilateral neck pains that she does not have chronically, and a headache, which she does get off and on. She states she chronically has pain shooting down both of her feet and that is no different. She denies any new bowel or bladder dysfunction. She denies any injury. She has been vomiting off and on for the past 3 days, she states sometimes she can keep fluids down, other times everything comes back up. She sometimes feels like things are getting stuck in her chest, similar to when she has had esophageal strictures in the past. She tends to get dilated every 6 months or so, the last dilatation was 4 months ago and she has an appointment with gastroenterology within the next couple weeks. Due to this, she was admitted to a fdc and discharged 3 weeks ago. Unknown if she had TPN, or the exact reason she was admitted. She says that she has degenerative curvature of the spine but denies being diagnosed with scoliosis, and is unsure if she was diagnosed with spinal stenosis. Last time she had an MRI she thinks was last year at some hospital in [place]. She is a fairly poor historian. She states the main reason she presents today is for pain control, and she is concerned about dehydration. She denies any new neurologic symptoms. - Past Medical History (1) Benign essential HTN Status: Chronic (2) Chronic alcoholic hepatitis Status: Chronic (3) Depression Status: Chronic (4) Esophageal stricture Status: Chronic (5) Gastroesophageal reflux disease Status: Chronic (6) HLD (hyperlipidemia) Status: Chronic (7) History of CVA (cerebrovascular accident) Status: Chronic Past Medical History - Allergies and Home Meds Allergies/Adverse Reactions: Allergies No Known Allergies Allergy (Verified 03/05/20 22:34) Primary Care Physician: GI doctor, your [Other] (as scheduled, or sooner if able) Surgical History: - - Thyroid cyst surgery, rib removal, tonsillectomy, prior esophageal dilations. Lives: With Family - since February 12, when d/c'd from SNF Smoking Status: Current every day smoker - Family History Maternal Family History: Family History (Last Reviewed 02/02/20 @ 03:[address] Musa Navarrete MD) Brother Alcoholism Father CVA (cerebral vascular accident) Family History: Reports: - - Patient states she does not know any of her maternal family history as her mother when she was 5 years old but she denies any history of heart disease, diabetes, cancer, unclear etiology for . Paternal Family History: Family History (Last Reviewed 02/02/20 @ 03:[address] Musa Navarrete MD) Brother Alcoholism Father CVA (cerebral vascular accident) Family History: Reports: Stroke Review of Systems General: Reports: Malaise. Denies: Chills, Fever, Sweats Eyes: Denies: Visual changes - bilaterally, Diplopia ENT: Denies: Bilateral ear pain, Rhinorrhea, Sore throat Cardiovascular: Denies: Chest pain, Palpitations Respiratory: Denies: Dyspnea, Cough, Dyspnea on exertion Gastrointestinal: Reports: Nausea, Vomiting. Denies: Abdominal pain, Diarrhea, Melena, Hematochezia Genitourinary: Reports: - - occasional bowel incontinence chronically due to rectal prolapse intermittently. Denies: Dysuria, Hematuria, Frequency Musculoskeletal: Reports: Neck pain, Back pain, Extremity Pain - pain radiates down both legs chronically, no different. Denies: Swelling Skin: Denies: Rash, Wounds Neurological: Reports: Headache. Denies: Weakness, Numbness Physical Exam Vital Signs/Narrative: Vital Signs Temp Pulse Resp BP Pulse Ox 03/05/20 22:32 97.5 F L 89 18 175/112 H 98 Inital Vital Signs reviewed: Yes General: Well nourished, Well developed, No Acute Distress - uncomfortable w/ any head/back movement Head: Normocephalic, Atraumatic Eyes: Perrl, EOMI ENT: Moist mucous membranes, No rhinorrhea. Negative for: Sinus tenderness Neck: Supple, Nontender - painful ROM, No lymphadenopathy Cardiovascular: Regular rate, Regular rhythm, No murmurs Respiratory: No distress, CTA bilaterally, Chest nontender Abdomen: Soft, Nontender, Nondistended, Normal bowel sounds Back: Nontender - no focal tenderness or step off, but pain w/ any movement by the pt, Normal Inspection Extremities: Nontender, No edema, - - neg straight leg raises bilat Skin: Normal color, No rash, No Trauma Neurological: Alert, Oriented x3, Cranial nerves II-XII grossly intact, Normal Strength, Normal Sensation Psychological: Normal affect, Normal Mood Diagnostic/Tx/Re-eval Impressions Brain CT 03/05/20 22:47 IMPRESSION: No acute intracranial abnormality. Electronically Signed: Alverto Root MD at 0:08 EDT , Service support , 03/05/20 22:47 Brain/Head without Contrast [CT] Stat Laboratory Results 03/05/20 03/05/20 23:15 23:15 WBC 7.6 RBC 3.59 L Hgb 11.6 L Hct 35.2 L MCV 98.1 MCH 32.3 H MCHC 33.0 RDW Std Deviation 54.2 H RDW Coeff of Richard 15.1 H Plt Count 259 MPV 10.9 Immature Gran % (Auto) 0.500 Neut % (Auto) 65.7 Lymph % (Auto) 21.5 [place] % (Auto) 10.3 H Eos % (Auto) 1.5 Baso % (Auto) 0.5 Absolute Neuts (auto) 5.0 Absolute Lymphs (auto) 1.63 Nucleated RBC % 0 Sodium 139 Potassium 3.1 L Chloride 108 H Carbon Dioxide 26.0 Anion Gap 5 BUN 11 Creatinine 0.66 Estim Creat Clear Calc 65.20 Est GFR (MDRD) Af Amer 119 Est GFR (MDRD) Non-Af 98 BUN/Creatinine Ratio 16.8 Glucose 79 Calcium 8.8 - Medical Decision Making Patient is a little hypokalemic with a rest of her work-up is unremarkable. She was treated with IV fluids, morphine, Reglan, Toradol. On reevaluation she is feeling much better. She is tolerating a p.o. challenge of oral fluids, and then went to drinking cola and eating cookies without difficulty. She was given oral liquid potassium. She is advised to follow-up with her doctor, and GI as soon as possible. She is comfortable with that plan. ED Disposition - Plan for ED Patient: Disposition: Home or Assisted Living Diagnosis: Acute headache, Vomiting, Esophageal stricture, Hypokalemia, Acute exacerbation of chronic low back pain Instructions: Esophageal Dilation, ED Back Pain Acute or Chronic Prescriptions: Metoclopramide [Reglan] 1 tab PO Q6H PRN #20 tab PRN Reason: Headache or nausea Prescription Printed Referrals: GI doctor, your [Other] (as scheduled, or sooner if able)
[2020-03-05] MEDS: Metoclopramide 10 MG/2 ML Vial 5 MG IV (23:19)
[2020-03-05] MEDS: Labetalol (Prefilled) 20 MG/4 ML IV (23:19)
[2020-03-05] MEDS: Ketorolac 15 MG/ML Vial IV (23:20)
[2020-03-05] MEDS: 0.9% Normal Saline 1,000 ML 999 ML IV (23:21)
[2020-03-05] MEDS: Morphine 4 MG/ML Syringe IV (23:25)
[2020-03-05 23:30] VITALS: BP 162/101
[2020-03-05 23:38] LABS: Absolute Lymphocyte Count 1.63 X10^3/uL (0.83-4.51); Basophil# 0.04 X10^3/uL; Basophil% 0.5 % (0-1); Eosinophil# 0.11 X10^3/uL; Eosinophils% 1.5 % (0-5); Hematocrit 35.2 % (37-47); Hemoglobin 11.6 g/dL (12.0-15.0); Lymphocyte # 1.63 X10^3/ul (4.0); Lymphocyte % 21.5 % (19-41); Mean Corpuscular Hgb 32.3 pg (27.0-32.0); Mean Corpuscular Volume 98.1 fL (81-99); Mean Platelet Vol. 10.9 fl (6.2-12.0); Monocyte# 0.78 X10^3/uL; Monocyte% 10.3 % (0-10); NRBC Flagged by Analyzer 0 % (0-5); Neutrophil # 4.98 X10^3/uL (2.7-7.7); Neutrophil % 65.7 % (47-70); Platelet Count 259 K/mm3 (150-450); RBC Distribution Width CV 15.1 % (11.6-14.6); RBC Distribution Width SD 54.2 fl (35.1-43.9); Red Blood Count 3.59 M/mm3 (4.2-5.4); White Blood Count 7.6 K/mm3 (4.4-11.0)
[2020-03-05 23:54] LABS: Anion Gap 5 (5-15); BUN 11 mg/dL (7-18); BUN/Creat Ratio 16.8 RATIO (10-20); Calcium,Total 8.8 mg/dL (8.5-10.1); Chloride 108 mmol/L (98-107); Creatinine, Serum 0.66 mg/dL (0.55-1.02); EST Glomerular Filtration Rate 98 mL/min (>60); Est Glom Filt Rate - Afr Amer 119 mL/min (>60); Glucose 79 mg/dL (74-106); Potassium 3.1 mmol/L (3.5-5.1); Sodium Level 139 mmol/L (136-145)
[2020-03-06 01:03] VITALS: BP 164/105
[2020-03-06 01:34] VITALS: BP 146/102
[2020-03-06 01:51] VITALS: PULSE 79; RESP 18; O2SAT 96
== END 2020-03-06 01:52 | disposition home or self-care (01) ==
PROVIDERS: Emergency Provider Emergency Medicine
DX: R51 Headache (principal); R11.10 Vomiting, unspecified; K22.2 Esophageal obstruction; E87.6 Hypokalemia; M54.5 Low back pain; G89.29 Other chronic pain; M54.2 Cervicalgia; I10 Essential (primary) hypertension; K70.10 Alcoholic hepatitis without ascites; E78.5 Hyperlipidemia, unspecified; K21.9 Gastro-esophageal reflux disease without esophagitis; F32.9 Major depressive disorder, single episode, unspecified; F17.200 Nicotine dependence, unspecified, uncomplicated; Z79.82 Long term (current) use of aspirin; Z79.899 Other long term (current) drug therapy; Z86.73 Personal history of transient ischemic attack (TIA), and cerebral infarction without residual deficits
CPT/HCPCS: 70450; 80048; 85025; 96361; 96374; 96375; 99283; J7030

== ENCOUNTER 2020-03-17 21:47 | Inpatient (IN) | payer MEDICARE, MEDICAID, SELFPAY ==
[2020-03-17 21:49] VITALS: BP 196/137; PULSE 89; RESP 16; TEMP 36.6; O2SAT 97; BMI 16.5
--- NOTE | 2020-03-17 23:26 | EKG12_ITS ---
Test Reason : DYSRHYTHMIA Blood Pressure : / mmHG Vent. Rate : 094 BPM Atrial Rate : 094 BPM P-R Int : 214 ms QRS Dur : 080 ms QT Int : 404 ms P-R-T Axes : 000 101 118 degrees QTc Int : 505 ms Sinus rhythm vs Ectopic Atrial Rhythm Prolonged QT Cannot Exclude Lateral KS of Indeterminate Age Nonspecific ST/T Wave Abnormality Cannot Exclude Limb Lead Misplacement Consider Repeat EKG Confirmed by ASHUTOSH SAHU, PERRI ([id number]), non linear editor RODDY MCCLURE ([id number]) on 03/19/2020 1:33:33 PM Referred By: JULIANA Confirmed By:PERRI BOYKIN MD
--- NOTE | 2020-03-17 23:29 | ED.VIS.GEN ---
History of Present Illness Chief Complaint: Other, Pain/Inj Informant: Patient, Family Onset: Days - 3 Context: Gradual Onset Timing: Continuous Quality: vomiting due to unable to pass anything through esophagus Current Severity: Severe Maximum Severity: Severe Worsened by: eating or drinking Relieved by: nothing Associated Symptoms: increase in chronic low back pain, increased BP since can't take her meds Narrative: Patient presents with similar issues that she did about 2 weeks ago, states she has a history of esophageal stricture, last time she was dilated was around 4 or 5 months ago, states she called gastroenterology to try to get back in with them, they are in [place], they state that they were told her insurance does not cover their facility fee so she will have to wait until they come to the [place] location, which will be a month or so. She is on the list. Apparently, in the last 3 days she feels worse because she has been able to keep nothing down and passed nothing into her stomach, including water. She feels dehydrated. She cannot keep down any of her pills, they will not pass, so she has not had a blood pressure medication and that is high, and now today she has developed pain in her jaw. She denies any chest pain or shortness of breath. No syncope or palpitations. She denies any focal neurologic symptoms. She has a headache. She is not nauseated, but will vomit and spit everything up if she tries to drink fluids. She states without any injury, her chronic low back discomfort and scoliosis pain is worse as well and she cannot take her pain medication. Has been long dependent on alcohol, but since she cannot keep it down, she has not had any in multiple weeks. She does not feel like she is in withdrawal right now. - Past Medical History (1) Chronic alcoholic hepatitis Status: Chronic (2) Esophageal stricture Status: Chronic (3) History of CVA (cerebrovascular accident) Status: Chronic (4) HLD (hyperlipidemia) Status: Chronic (5) Gastroesophageal reflux disease Status: Chronic (6) Depression Status: Chronic (7) Benign essential HTN Status: Chronic Past Medical History - Allergies and Home Meds Allergies/Adverse Reactions: Allergies No Known Allergies Allergy (Verified 03/17/20 21:53) Surgical History: - - Thyroid cyst surgery, rib removal, tonsillectomy, prior esophageal dilations. Smoking Status: Current every day smoker - Family History Maternal Family History: Family History (Last Reviewed 02/02/20 @ 03:[address] Musa Navarrete MD) Brother Alcoholism Father CVA (cerebral vascular accident) Family History: Reports: - - Patient states she does not know any of her maternal family history as her mother when she was 5 years old but she denies any history of heart disease, diabetes, cancer, unclear etiology for . Paternal Family History: Family History (Last Reviewed 02/02/20 @ 03:[address] Musa Navarrete MD) Brother Alcoholism Father CVA (cerebral vascular accident) Family History: Reports: Stroke Review of Systems General: Reports: Malaise. Denies: Chills, Fever, Sweats Eyes: Denies: Visual changes - bilaterally, Diplopia ENT: Reports: - - jaw pain. Denies: Rhinorrhea, Sore throat Cardiovascular: Denies: Chest pain, Palpitations Respiratory: Denies: Dyspnea, Cough, Dyspnea on exertion Gastrointestinal: Reports: Vomiting - when eats or drinks. Denies: Abdominal pain, Nausea, Diarrhea, Melena, Hematochezia Genitourinary: Denies: Dysuria, Hematuria, Frequency Musculoskeletal: Reports: Back pain. Denies: Swelling, Extremity Pain Skin: Denies: Rash, Wounds Neurological: Reports: Headache. Denies: Weakness, Numbness Physical Exam Vital Signs/Narrative: Vital Signs Temp Pulse Resp BP Pulse Ox 03/17/20 21:49 97.9 F 89 16 196/137 H 97 Inital Vital Signs reviewed: Yes General: Well nourished, Well developed, Cachectic, No Acute Distress Head: Normocephalic, Atraumatic Eyes: Perrl, EOMI ENT: Moist mucous membranes, No rhinorrhea, - - Jaw nontender. Full range of motion, no rash, lesion, tenderness Neck: Supple, Nontender, No lymphadenopathy, No JVD Cardiovascular: Regular rate, Regular rhythm, No murmurs. Negative for: Tachycardia Respiratory: No distress, CTA bilaterally, Chest nontender Abdomen: Soft, Nontender, Nondistended, Normal bowel sounds Back: Normal Inspection, - - able to sit forward w/o significant pain. Negative for: Spinal tenderness Extremities: Nontender, No edema. Negative for: Calf Tenderness Skin: Normal color, No rash, No Trauma Neurological: Alert, Oriented x3, Cranial nerves II-XII grossly intact, Normal Strength, Normal Sensation Psychological: Normal affect, Normal Mood Diagnostic/Tx/Re-eval Laboratory Results 03/18/20 03/18/20 03/18/20 00:00 00:50 00:50 WBC 8.4 RBC 4.09 L Hgb 12.8 Hct 39.8 MCV 97.3 MCH 31.3 MCHC 32.2 RDW Std Deviation 54.3 H RDW Coeff of Richard 15.2 H Plt Count 284 MPV 10.8 Immature Gran % (Auto) 0.400 Neut % (Auto) 60.4 Lymph % (Auto) 27.8 [place] % (Auto) 9.6 Eos % (Auto) 1.0 Baso % (Auto) 0.8 Absolute Neuts (auto) 5.1 Absolute Lymphs (auto) 2.34 Nucleated RBC % 0 Sodium 147 H Potassium 2.1 L* Chloride 111 H Carbon Dioxide 29.0 Anion Gap 7 BUN 17 Creatinine 0.73 Estim Creat Clear Calc 55.94 Est GFR (MDRD) Af Amer 105 Est GFR (MDRD) Non-Af 87 BUN/Creatinine Ratio 23.3 H Glucose 77 Calcium 8.8 Troponin I < 0.015 Urine Color Yellow Urine Clarity Sl. Cloudy Urine pH 6.0 Ur Specific [place] 1.015 Urine Protein 15 H Urine Glucose (UA) Normal Urine Ketones 5 H Urine Occult Blood Negative Urine Nitrite Negative Urine Bilirubin Negative Urine Urobilinogen 1 H Ur Leukocyte Esterase 500 H Urine RBC 0 SEEN Urine WBC 5-10 SEEN Ur Squamous Epith Cells 50-100 SEEN Urine Bacteria 0 SEEN Urine Mucus 0 SEEN - Rhythm Strip Rhythm Strip: Sinus Rhythm Rate: 95 Ectopy: None - EKG Initial EKG Interpretation: Sinus Rhythm, No Acute Injury Pattern, Non-Specific ST Changes - less than 1mm ST depressions inferolaterally, - - difficult to assess for changes c/w prior EKG in 12/2019, due to LV strain pattern then; unchanged inferior leads appearance. - Medical Decision Making Discussed with Dr. Watt with surgery who does EGDs, he states he would be able to consult on this patient as an inpatient and when hemodynamically stable, potentially scope her to perform esophageal dilatation. Given that we can keep the patient here at this hospital. Given how long she has to follow-up, I think she is likely to do poorly if discharged home again. She was given medications for her blood pressure to try to get it under better control, gradually while in the emergency department. There was no evidence for acute coronary syndrome here, and with labetalol and morphine, her jaw pain resolved, and her back pain was more tolerable. She was feeling better. ED Disposition - Plan for ED Patient: Disposition: Acute Care Hospital [facility] Diagnosis: Dehydration, Hypertensive urgency, Esophageal stricture, Dysphagia, Hypokalemia
[2020-03-17] MEDS: Ondansetron 4 MG/2 ML Vial IV (23:48)
[2020-03-17] MEDS: Morphine 4 MG/ML Syringe IV (23:49)
[2020-03-17] MEDS: 0.9% Normal Saline 1,000 ML 200 ML IV (23:49)
[2020-03-17] MEDS: Labetalol (Prefilled) 20 MG/4 ML IV (23:49)
[2020-03-18] VITALS (14 sets, daily range): BP systolic 137–205; BP diastolic 52–124; PULSE 67–93; RESP 15–22; TEMP 36.7–37.2; O2SAT 94–100; BMI 15.7; BMI 15.8
[2020-03-18 00:05] LABS: Bacteria 0 SEEN /hpf (None Seen); Mucous, Urine 0 SEEN /hpf (<or=2+); Red Blood Cells-Urine 0 SEEN /hpf (0-5)
[2020-03-18 00:06] LABS: Color, Urine Yellow (Yellow); Glucose, Dipstick Normal (Normal); Ketone-Dipstick 5 mg/dl (Negative); Leukocyte Esterase-Dipstick 500 /ul (Negative); Nitrite-Dipstick Negative (Negative); Occult Blood-Urine Negative /ul (Negative); Protein-Dipstick 15 mg/dl (Negative); Specific Gravity, Urine 1.015 (1.002-1.030); Urine Bilirubin Dipstick Negative (Negative); Urine Clarity Sl. Cloudy (Clear); Urine Urobilinogen 1 mg/dl (Normal)
[2020-03-18 00:12] LABS: Squamous Epithelial Cells - UA 50-100 SEEN /hpf (5-10); White Blood Cells 5-10 SEEN /hpf (0-5)
[2020-03-18 01:11] LABS: Absolute Lymphocyte Count 2.34 X10^3/uL (0.83-4.51); Absolute Neutrophil Count 5.1 X10^3/uL (2.0-7.7); Basophil# 0.07 X10^3/uL; Basophil% 0.8 % (0-1); Eosinophil# 0.08 X10^3/uL; Hematocrit 39.8 % (37-47); Hemoglobin 12.8 g/dL (12.0-15.0); Lymphocyte # 2.34 X10^3/ul (4.0); Lymphocyte % 27.8 % (19-41); Mean Corp Hgb Conc 32.2 g/dL (32-36); Mean Corpuscular Hgb 31.3 pg (27.0-32.0); Mean Corpuscular Volume 97.3 fL (81-99); Mean Platelet Vol. 10.8 fl (6.2-12.0); Monocyte# 0.81 X10^3/uL; Monocyte% 9.6 % (0-10); NRBC Flagged by Analyzer 0 % (0-5); Neutrophil # 5.09 X10^3/uL (2.7-7.7); Neutrophil % 60.4 % (47-70); Platelet Count 284 K/mm3 (150-450); RBC Distribution Width CV 15.2 % (11.6-14.6); RBC Distribution Width SD 54.3 fl (35.1-43.9); Red Blood Count 4.09 M/mm3 (4.2-5.4); White Blood Count 8.4 K/mm3 (4.4-11.0)
[2020-03-18] MEDS: hydrALAZINE 20 MG/ML Vial IV (01:36)
[2020-03-18 01:50] LABS: Anion Gap 7 (5-15); BUN 17 mg/dL (7-18); BUN/Creat Ratio 23.3 RATIO (10-20); Calcium,Total 8.8 mg/dL (8.5-10.1); Chloride 111 mmol/L (98-107); Creatinine, Serum 0.73 mg/dL (0.55-1.02); EST Glomerular Filtration Rate 87 mL/min (>60); Est Glom Filt Rate - Afr Amer 105 mL/min (>60); Estimated Creatinine Clearance 55.94 ml/min; Glucose 77 mg/dL (74-106); Potassium 2.1 mmol/L (3.5-5.1); Sodium Level 147 mmol/L (136-145)
--- NOTE | 2020-03-18 02:18 | HP.PCM_ITS ---
Problem List (1) Chronic alcoholic hepatitis Status: Chronic (2) Dehydration Status: Acute (3) Hypokalemia Status: Acute (4) EtOH dependence Status: Chronic (5) Dysphagia Status: Acute Qualifiers: Dysphagia type: unspecified Qualified Code(s): R13.10 - Dysphagia, unspecified (6) Esophageal stricture Status: Chronic (7) History of CVA (cerebrovascular accident) Status: Chronic (8) HLD (hyperlipidemia) Status: Chronic Qualifiers: Hyperlipidemia type: unspecified Qualified Code(s): E78.5 - Hyperlipidemia, unspecified (9) Gastroesophageal reflux disease Status: Chronic Qualifiers: Esophagitis presence: esophagitis presence not specified Qualified Code(s): K21.9 - Gastro-esophageal reflux disease without esophagitis (10) Depression Status: Chronic Qualifiers: Depression Type: unspecified Qualified Code(s): F32.9 - Major depressive disorder, single episode, unspecified (11) Benign essential HTN Status: Chronic History of Present Illness Date of Admission: 03/18/20 Chief Complaint: throat pain The patient is a 59 year old female with a significant past medical history of alcohol abuse, hypertension, homelessness, and esophageal stricture presents the emergency room with worsening symptoms of throat pain. She has been unable to keep food down for the last 3 days. She last had a dilation of the esophagus approximately 2 to 3 weeks ago. She states her pain in the throat is currently 9/10 despite having received morphine recently. She has a markedly reduced potassium level 2.1 which will be replaced. Dr. Watt has been consulted and agreed to do esophageal dilatation. Patient does not have any fevers or chills and no cough at this time. She will be admitted to PCU due to electrolyte imbalance and made n.p.o. pending procedure tomorrow Past Medical History Past Medical History (Chronic Problems): Chronic Problems Homelessness (Chronic) Chronic alcoholic hepatitis (Chronic) EtOH dependence (Chronic) Esophageal stricture (Chronic) History of CVA (cerebrovascular accident) (Chronic) HLD (hyperlipidemia) (Chronic) Gastroesophageal reflux disease (Chronic) Depression (Chronic) Benign essential HTN (Chronic) Allergies No Known Allergies Allergy (Verified 03/17/20 21:53) Home Medications: Ambulatory Orders Medication Instructions Recorded Aspirin [Aspirin, Baby] 81 mg PO DAILY@0800 02/02/20 Atorvastatin Calcium 40 mg PO QHS 02/02/20 Acetaminophen [Tylenol Tablet] 650 mg PO Q6H PRN PRN tab 02/06/20 Losartan Potassium [Cozaar] 50 mg PO DAILY tab 02/06/20 Metoprolol Tartrate [Lopressor 50 mg PO DAILY 03/05/20 (Beta Dimitrios)] Duloxetine HCl 60 mg PO DAILY 03/17/20 Ondansetron [Ondansetron Odt] 4 mg PO PRN PRN 03/17/20 traZODone [Desyrel] 50 mg PO QHS 03/17/20 Surgical History: - - Thyroid cyst surgery, rib removal, tonsillectomy, prior esophageal dilations. 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 Musa Navarrete MD) Brother Alcoholism Father CVA (cerebral vascular accident) History Items: - - Patient states she does not know any of her maternal family history as her mother when she was 5 years old but she denies any history of heart disease, diabetes, cancer, unclear etiology for . Paternal Family History: Family History (Last Reviewed 02/02/20 @ 03:[address] Musa Navarrete MD) Brother Alcoholism Father CVA (cerebral vascular accident) History Items: Stroke Review of Systems Constitutional: Reports: Weakness. Denies: Chills, Fever, Weight Change HEENT: Reports: Difficulty Swallowing, Dysphasia, Sore Throat. Denies: Head Aches, Sinus Congestion, Sinus Drainage Cardiovascular: Denies: Chest Pain, Palpitations Respiratory: Denies: Cough, Shortness of breath at rest, Sputum production Gastrointestinal: Reports: Nausea, Vomiting. Denies: Abdominal Pain Genitourinary: Denies: Dysuria Musculoskeletal: Denies: Joint Pain, Joint Tenderness Skin: Denies: Rash, Wounds Neurological: Denies: Numbness, Tingling, Focal weakness Psychiatric: Reports: Anxiety. Denies: Depression, Homicidal Ideations, Suicidal Ideations Hematologic/ Lymphatic: Denies: Easy Bruising, Easy Bleeding VTE Information - Inpt Only VTE Present on Admission: No VTE Mechan Device Prophylaxis: None VTE Pharm Prophylaxis ordered?: Yes Patient Problems: Active and Suspected Problems Hypertensive urgency (Acute) Dehydration (Acute) Hypokalemia (Acute) Dysphagia (Acute) - Physical Exam Vitals/I&O's: Vital Signs Temp Pulse Resp BP Pulse Ox 98.1 F 93 19 H 166/109 H 98 03/18/20 01:54 03/18/20 02:03 03/18/20 02:03 03/18/20 02:03 03/18/20 02:03 Oxygen Delivery Method Room Air Weight: 93 lb Body Mass Index (BMI) 16.5 General: Alert, Oriented x3, Cooperative HEENT: Atraumatic, Normocephalic Neck: Supple Lungs: Clear to auscultation, Normal air movement Cardiovascular: Regular rate, Normal S1, Normal S2, No murmurs Abdomen: Bowel Sounds Present, Non Tender Extremities: No edema, Capillary Refill Less than 3 Seconds Skin: No rashes, No breakdown Musculoskeletal: No Tenderness to Palpation of Joints or Extremities Neurological: Neuro grossly intact Psych/Mental Status: Agitated, Anxious Laboratory Results 03/18/20 00:00: Urine Color Yellow, Urine Clarity Sl. Cloudy, Urine pH 6.0, Ur Specific [place] 1.015, Urine Protein 15 H, Urine Glucose (UA) Normal, Urine Ketones 5 H, Urine Occult Blood Negative, Urine Nitrite Negative, Urine Bilirubin Negative, Urine Urobilinogen 1 H, Ur Leukocyte Esterase 500 H, Urine RBC 0 SEEN, Urine WBC 5-10 SEEN, Ur Squamous Epith Cells 50-100 SEEN, Urine Bacteria 0 SEEN, Urine Mucus 0 SEEN 03/18/20 00:50: WBC 8.4, RBC 4.09 L, Hgb 12.8, Hct 39.8, MCV 97.3, MCH 31.3, MCHC 32.2, RDW Std Deviation 54.3 H, RDW Coeff of Richard 15.2 H, Plt Count 284, MPV 10.8, Immature Gran % (Auto) 0.400, Neut % (Auto) 60.4, Lymph % (Auto) 27.8, [place] % (Auto) 9.6, Eos % (Auto) 1.0, Baso % (Auto) 0.8, Absolute Neuts (auto) 5.1, Absolute Lymphs (auto) 2.34, Nucleated RBC % 0 03/18/20 00:50: Sodium 147 H, Potassium 2.1 L*, Chloride 111 H, Carbon Dioxide 29.0, Anion Gap 7, BUN 17, Creatinine 0.73, Estim Creat Clear Calc 55.94, Est GFR (MDRD) Af Amer 105, Est GFR (MDRD) Non-Af 87, BUN/Creatinine Ratio 23.3 H, Glucose 77, Calcium 8.8, Troponin I < 0.015 Current Medications Sodium Chloride () 1,000 mls @ 200 mls/hr IV .Q5H LUIS Last Admin: 03/17/20 23:49 Dose: 200 mls/hr Documented by: Assessment/Plan All Active Problems Cystitis (Acute) Hypertensive urgency (Acute) Dehydration (Acute) Hypokalemia (Acute) Dysphagia (Acute) Chronic Problems Homelessness (Chronic) Chronic alcoholic hepatitis (Chronic) EtOH dependence (Chronic) Esophageal stricture (Chronic) History of CVA (cerebrovascular accident) (Chronic) HLD (hyperlipidemia) (Chronic) Gastroesophageal reflux disease (Chronic) Depression (Chronic) Benign essential HTN (Chronic) Plan 1. Esophageal stricture/dysphagia/throat pain?admit patient to rest of care unit, consult Dr. Watt make patient n.p.o. pending procedure, Dilaudid 1 mg IV every 3 hours, Zofran 4 mg IV every 6 hours as needed nausea 2. Hold medications for chronic conditions while patient is n.p.o. 3. DVT prophylaxis?low molecular weight heparin 4. Hypokalemia?replace with IV potassium chloride Inpatient E&M: [id number] Init Hosp L3
[2020-03-18] MEDS: HYDROmorphone 1 MG/ML Syringe IV ×4 (02:55→21:02)
[2020-03-18] MEDS: Ondansetron 4 MG/2 ML Vial IV (05:23)
[2020-03-18] MEDS: 0.9% Saline Lock 10 ML Syringe IV ×3 (05:23→14:36)
[2020-03-18 06:54] LABS: Absolute Lymphocyte Count 2.72 X10^3/uL (0.83-4.51); Absolute Neutrophil Count 4.5 X10^3/uL (2.0-7.7); Basophil# 0.06 X10^3/uL; Basophil% 0.7 % (0-1); Eosinophil# 0.12 X10^3/uL; Eosinophils% 1.5 % (0-5); Hematocrit 34.9 % (37-47); Hemoglobin 11.4 g/dL (12.0-15.0); Lymphocyte # 2.72 X10^3/ul (4.0); Lymphocyte % 32.9 % (19-41); Mean Corp Hgb Conc 32.7 g/dL (32-36); Mean Corpuscular Hgb 31.1 pg (27.0-32.0); Mean Corpuscular Volume 95.1 fL (81-99); Mean Platelet Vol. 10.5 fl (6.2-12.0); Monocyte# 0.84 X10^3/uL; Monocyte% 10.2 % (0-10); NRBC Flagged by Analyzer 0 % (0-5); Neutrophil # 4.51 X10^3/uL (2.7-7.7); Neutrophil % 54.5 % (47-70); Platelet Count 329 K/mm3 (150-450); RBC Distribution Width CV 15.2 % (11.6-14.6); Red Blood Count 3.67 M/mm3 (4.2-5.4); White Blood Count 8.3 K/mm3 (4.4-11.0)
[2020-03-18 07:39] LABS: Anion Gap 6 (5-15); BUN 14 mg/dL (7-18); BUN/Creat Ratio 21.7 RATIO (10-20); Calcium,Total 8.3 mg/dL (8.5-10.1); Chloride 109 mmol/L (98-107); Creatinine, Serum 0.64 mg/dL (0.55-1.02); EST Glomerular Filtration Rate 100 mL/min (>60); Est Glom Filt Rate - Afr Amer 121 mL/min (>60); Estimated Creatinine Clearance 61.11 ml/min; Glucose 98 mg/dL (74-106); Potassium 2.1 mmol/L (3.5-5.1); Sodium Level 144 mmol/L (136-145)
--- NOTE | 2020-03-18 07:43 | PCM.CONS.GEN ---
Problem List (1) Esophageal stricture Status: Chronic Reason for Consult Date of Consultation: 03/18/20 History of Present Illness: The patient is a 59 year old F who presents with dysphasia and reports that she has not been able to take her medications at home and she is unable to tolerate anything. She is feeling food sticking in her midesophagus and says that she has vomiting after trying to eat. She has been unable to take her medications. Past Medical History Past Medical History (Chronic Problems): Chronic Problems Homelessness (Chronic) Chronic alcoholic hepatitis (Chronic) EtOH dependence (Chronic) Esophageal stricture (Chronic) History of CVA (cerebrovascular accident) (Chronic) HLD (hyperlipidemia) (Chronic) Gastroesophageal reflux disease (Chronic) Depression (Chronic) Benign essential HTN (Chronic) Allergies No Known Allergies Allergy (Verified 03/17/20 21:53) Home Medications: Ambulatory Orders Medication Instructions Recorded Aspirin [Aspirin, Baby] 81 mg PO DAILY@0800 02/02/20 Atorvastatin Calcium 40 mg PO QHS 02/02/20 Acetaminophen [Tylenol Tablet] 650 mg PO Q6H PRN PRN tab 02/06/20 Losartan Potassium [Cozaar] 50 mg PO DAILY tab 02/06/20 Metoprolol Tartrate [Lopressor 50 mg PO DAILY 03/05/20 (Beta Dimitrios)] Duloxetine HCl 60 mg PO DAILY 03/17/20 Ondansetron [Ondansetron Odt] 4 mg PO PRN PRN 03/17/20 traZODone [Desyrel] 50 mg PO QHS 03/17/20 Surgical History: - - Thyroid cyst surgery, rib removal, tonsillectomy, prior esophageal dilations. 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 Musa Navarrete MD) Brother Alcoholism Father CVA (cerebral vascular accident) History Items: - - Patient states she does not know any of her maternal family history as her mother when she was 5 years old but she denies any history of heart disease, diabetes, cancer, unclear etiology for . Paternal Family History: Family History (Last Reviewed 02/02/20 @ 03:[address] Musa Navarrete MD) Brother Alcoholism Father CVA (cerebral vascular accident) History Items: Stroke Review of Systems Constitutional: Denies: Anorexia, Fever HEENT: Reports: Difficulty Swallowing, Dysphasia Cardiovascular: Denies: Chest Pain Respiratory: Denies: Cough, Shortness of Breath Gastrointestinal: Reports: Vomiting. Denies: Abdominal Pain, Nausea Genitourinary: Denies: Dysuria Musculoskeletal: Denies: Joint Tenderness Patient Problems: Active and Suspected Problems Hypertensive urgency (Acute) Dehydration (Acute) Hypokalemia (Acute) Dysphagia (Acute) - Physical Exam Vitals/I&O's: Vital Signs Temp Pulse Resp BP Pulse Ox 98.3 F 81 18 166/90 H 98 03/18/20 02:45 03/18/20 06:53 03/18/20 02:45 03/18/20 02:45 03/18/20 04:52 Oxygen Delivery Method Room Air Weight: 89 lb 1.068 oz Body Mass Index (BMI) 15.7 Intake and Output for Last 24 Hours 03/16/20 03/17/20 03/18/20 23:59 23:59 23:59 Intake Total 536.67 / 536.67 Balance 536.67 / 536.67 General: Alert, Oriented x3 Neck: No JVD Lungs: Normal air movement Cardiovascular: Regular rate, Regular Rhythm Abdomen: Soft, Non Tender, Non-Distended Laboratory Results 03/18/20 00:00: Urine Color Yellow, Urine Clarity Sl. Cloudy, Urine pH 6.0, Ur Specific Taylor 1.015, Urine Protein 15 H, Urine Glucose (UA) Normal, Urine Ketones 5 H, Urine Occult Blood Negative, Urine Nitrite Negative, Urine Bilirubin Negative, Urine Urobilinogen 1 H, Ur Leukocyte Esterase 500 H, Urine RBC 0 SEEN, Urine WBC 5-10 SEEN, Ur Squamous Epith Cells 50-100 SEEN, Urine Bacteria 0 SEEN, Urine Mucus 0 SEEN 03/18/20 00:50: WBC 8.4, RBC 4.09 L, Hgb 12.8, Hct 39.8, MCV 97.3, MCH 31.3, MCHC 32.2, RDW Std Deviation 54.3 H, RDW Coeff of Richard 15.2 H, Plt Count 284, MPV 10.8, Immature Gran % (Auto) 0.400, Neut % (Auto) 60.4, Lymph % (Auto) 27.8, York % (Auto) 9.6, Eos % (Auto) 1.0, Baso % (Auto) 0.8, Absolute Neuts (auto) 5.1, Absolute Lymphs (auto) 2.34, Nucleated RBC % 0 03/18/20 00:50: Sodium 147 H, Potassium 2.1 L*, Chloride 111 H, Carbon Dioxide 29.0, Anion Gap 7, BUN 17, Creatinine 0.73, Estim Creat Clear Calc 55.94, Est GFR (MDRD) Af Amer 105, Est GFR (MDRD) Non-Af 87, BUN/Creatinine Ratio 23.3 H, Glucose 77, Calcium 8.8, Troponin I < 0.015 03/18/20 06:15: WBC 8.3, RBC 3.67 L, Hgb 11.4 L, Hct 34.9 L, MCV 95.1, MCH 31.1, MCHC 32.7, RDW Std Deviation 53.0 H, RDW Coeff of Richard 15.2 H, Plt Count 329, MPV 10.5, Immature Gran % (Auto) 0.200, Neut % (Auto) 54.5, Lymph % (Auto) 32.9, York % (Auto) 10.2 H, Eos % (Auto) 1.5, Baso % (Auto) 0.7, Absolute Neuts (auto) 4.5, Absolute Lymphs (auto) 2.72, Nucleated RBC % 0 03/18/20 06:15: Sodium 144, Potassium 2.1 L*, Chloride 109 H, Carbon Dioxide 29.0, Anion Gap 6, BUN 14, Creatinine 0.64, Estim Creat Clear Calc 61.11, Est GFR (MDRD) Af Amer 121, Est GFR (MDRD) Non-Af 100, BUN/Creatinine Ratio 21.7 H, Glucose 98, Calcium 8.3 L Current Medications Enoxaparin Sodium (Lovenox) 40 mg SC DAILY LUIS Hydromorphone HCl (Dilaudid Inj) 1 mg IV Q4H PRN PRN PRN Reason: Pain Score 6-1010 Last Admin: 03/18/20 02:55 Dose: 1 mg Documented by: Potassium Chloride/Dextrose/Sod Cl (Kcl 20meq In D5.45ns 1000ml) 1,000 mls @ 125 mls/hr IV .Q8H LUIS Last Admin: 03/18/20 02:55 Dose: 125 mls/hr Documented by: Nicotine (Nicoderm Cq (Pbkc)) 14 mg TRANSDERM. DAILY LUIS Last Admin: 03/18/20 03:54 Dose: 14 mg Documented by: Ondansetron HCl (Zofran) 4 mg IV Q8H PRN PRN PRN Reason: NAUSEA/VOMITING Last Admin: 03/18/20 05:23 Dose: 4 mg Documented by: Sodium Chloride () 10 - 40 ml IV UD PRN PRN Reason: SALINE FLUSH Last Admin: 03/18/20 05:23 Dose: 20 ml Documented by: Assessment/Plan All Active Problems Cystitis (Acute) Hypertensive urgency (Acute) Dehydration (Acute) Hypokalemia (Acute) Dysphagia (Acute) 59-year-old female with dysphagia and esophageal stricture 1. I performed an endoscopy in October on the patient for food impaction and esophageal stricture and I did perform balloon dilation to 8 mm. The patient has not seen GI since being discharged. She is continuing to have dysphasia and is requiring EGD. The patient was very hypertensive due to not taking her heart medications and she is very hypokalemic. The potassium is still 2.1 this morning. Once her potassium is corrected I can take her for EGD and perform dilation. I discussed EGD with her in detail and the risks. I discussed the risks of bleeding, infection, perforation of the GI tract. I discussed that if perforation occurs she be transferred to a tertiary care center she has had multiple dilations. Patient understands and wants to proceed as soon as possible. Be Watt MD Pager: [facility] [address] [place] [address], [address] [place] [address] Office:
[2020-03-18] MEDS: Potassium Chloride 10mEq/100mL 10 MEQ/100 ML IV.SOLN. 100 MEQ IV BOLUS ×8 (08:57→23:59)
[2020-03-18] MEDS: LORazepam 2 MG/ML Syringe 0.5 MG IV ×3 (09:04→20:27)
--- NOTE | 2020-03-18 11:07 | CASEMGMT ---
EDISON MEDELLIN assessment: Face to Face with patient for initial transition planning/care coordination assessment. EDISON MEDELLIN introduced self and role at [facility], pt voices understanding and consents to assessment at this time. Pt is sitting up in bed in no distress at this time. Pt is A/Ox4 at this time and answers all questions appropriately at this time. Care providers, pharmacy, and demographics verified/updated at this time. Presentation: Pt c/o 'collapsed esophagus' again, hx of esophageal strictures in the past. c/o N/V, headache, 'face pain', states hasn't been able to take meds for 3 days Admitting dx: Dysphagia, hypokalemia, esophageal stricture PCP: [facility] Specialists: Pt states no current specialists. Preferred Pharmacy: [facility] Insurance: [employer] Prescription Benefit: [employer] Living Will/HPOA: Pt states has HPOA but does not have LW and is aware that the HPOA is not on file at [facility] at this time. Pt states that her niece, Flcaa Rogers, is HPOA. LNOK: Flaca Rogers, niece/HPOA; Martha Buchanan, daughter Living Arrangements: Pt states that she lives with her niece/HPOA, Flaca Rogers, in a home and states no concerns at home at this time. 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 Transportation: Pt states niece drives and states no transportation concerns at this time. DME/HHC: Pt states has the following DME: cane, walker, and grab bars. Pt states no need for any further DME at this time. Pt states no hx of HHC but has been to [facility] x3 and [facility] x[facility] in the past. Pt states no concerns with going home at time of discharge. Pt states is on disability. Pt states smokes 5-6 cigarettes daily and is trying to quit. Pt states does not drink ETOH. Pt states no further concerns/needs at this time. CM to follow for PT/OT evals and for any further discharge planning/needs. Advised pt to ask for CM if any further questions/concerns/needs arise, voices understanding. Pt Goal: Home Plan: [place] EDISON MEDELLIN
--- NOTE | 2020-03-18 17:00 | NURSING ---
Flaca, patient's POA, went to floor kitchen and brought patient water to drink while knowing of patient NPO status. 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
--- NOTE | 2020-03-18 17:11 | PCM.HOSP.N ---
Hospitalist Note Patient was seen and examined today, she threatened many times today to check out AMA, she stated that she wanted to go outside to smoke, I placed her on some IV Ativan as needed for severe anxiety and so far she has elected to stay in the hospital. Patient's potassium was not corrected at this morning and so she could not undergo an EGD. I will recheck the patient's BMP this afternoon after her potassium infusion. I talked briefly with general surgery about her care, they anticipate having to dilate the patient's esophagus tomorrow.
[2020-03-18 18:12] LABS: Anion Gap 7 (5-15); BUN 12 mg/dL (7-18); BUN/Creat Ratio 16.9 RATIO (10-20); Calcium,Total 8.4 mg/dL (8.5-10.1); Chloride 112 mmol/L (98-107); Creatinine, Serum 0.71 mg/dL (0.55-1.02); EST Glomerular Filtration Rate 90 mL/min (>60); Est Glom Filt Rate - Afr Amer 108 mL/min (>60); Estimated Creatinine Clearance 55.08 ml/min; Glucose 101 mg/dL (74-106); Potassium 2.9 mmol/L (3.5-5.1); Sodium Level 146 mmol/L (136-145)
[2020-03-18] MEDS: 0.9% Normal Saline 1,000 ML 100 ML IV (21:02)
[2020-03-19] VITALS (12 sets, daily range): BP systolic 124–213; BP diastolic 58–116; PULSE 66–83; RESP 16–18; TEMP 36.4–37.3; O2SAT 92–96; BMI 15.7
--- NOTE | 2020-03-19 | EGD_PTH ---
PATIENT: DEYA PUGA LOC: [facility] U#:[id number] AGE/SX: 59/F ROOM: [facility] RE03/18/[address]: Dr. Mayo Michaels DO : 1960 BED: 1 DIS: 03/19/2020 SPEC #: [id number] RECD: 03/19/20 13:58 STATUS: VICKI REJuan Miguel #: [id number] TITUS: 03/19/20 00:[address]: Be Watt DEPT: SURGICAL PATHOLOGY RECD BY: Jackie Elliott ENTERED: 03/20/20 09:34 SP TYPE: EGD BIOPSY [facility] DR: DO Dr. Mayo Kramer DO Dr. Paul Nielsen, MD Tissues: Esophagus, NOS Procedures: Special Stain Group II Surgery Specimen Level IV Alcian Blue/PAS (control) HEADER OPERATION: EGD ([facility]) PRE-OP DIAGNOSIS: Dysphagia, esophageal stricture TISSUE SUBMITTED: Mid esophagus biopsy MICROSCOPIC DIAGNOSIS Mid esophagus, biopsy: Focal goblet cell metaplasia. No evidence of dysplasia. Focal changes of reflux. See comment. AM:jazmin 03/21/20 COMMENT Alcian blue/PAS stain with matched control supports the above diagnosis. Immunohistochemistry ([id number]) supports the above diagnosis. This case has been reviewed in consultation with Dr. Ayala who concurs with the above diagnosis. MICROSCOPIC DESCRIPTION Slides are reviewed. GROSS DESCRIPTION Received in fixative is one container labeled with the patient's name and designated mid esophagus. The specimen consists of multiple irregular fragments of light sevilla soft tissue that in aggregate measure 0.5 x 0.3 x 0.1 cm. The specimen is totally submitted in one cassette. / SJ:jazmin 03/20/20 TC:3 CPT: 52265, 88572
--- NOTE | 2020-03-19 | IMM_PTH ---
PATIENT: DEYA PUGA LOC: [facility] U#:[id number] AGE/SX: 59/F ROOM: [facility] RE03/18/[address]: Dr. Mayo Michaels DO : 1960 BED: 1 DIS: 03/19/2020 SPEC #: [id number] RECD: 03/21/20 12:01 STATUS: VICKI REJuan Miguel #: [id number] TITUS: 03/19/20 00:[address]: Be Watt DEPT: IMMUNOHISTOCHEMISTRY RECD BY: Gaby Rodriguez ENTERED: 03/21/20 12:02 SP TYPE: IMMUNO OTHR DR: DO Dr. Mayo Kramer DO Dr. Paul Nielsen, MD Tissues: Esophagus, NOS Procedures: P53 (initial) KI-67 (add) PHYSICIAN & INSTITUTION [place] [id number] SPECIMEN INFORMATION: Tissue Source: Mid esophagus biopsy Clinical Info: Dysphagia, esophageal stricture Specimen Number: [id number] CPT code: 21458, 36312 METHODOLOGY: Deparaffinized sections of prefer/formalin-fixed tissue or PAP/DQ stained slides are incubated with monoclonal/polyclonal antibodies/oligonucleotide probes. Localization is made via biotin free immunoperoxidase method. Appropriate controls are performed and reacted as expected. Results on target cell population are indicated in the following table: RESULTS: ANTIBODY / CLONE RESULT P53 (DO-7) negative Ki-67 (30-9) negative These tests were developed and their performance characteristics determined by [facility]. They may not have been cleared or approved by the U.S. Food and Drug Administration. The FDA has determined that such clearance or approval is not necessary. The above immunohistochemical/dualISH markers are ordered and reviewed by the Pathologist. INTERPRETATION: Mid esophagus biopsy: Negative for dysplasia. JAYASHREE:jazmin 03/21/20
[2020-03-19 05:56] LABS: Absolute Lymphocyte Count 1.99 X10^3/uL (0.83-4.51); Absolute Neutrophil Count 4.1 X10^3/uL (2.0-7.7); Basophil# 0.06 X10^3/uL; Basophil% 0.8 % (0-1); Eosinophil# 0.12 X10^3/uL; Eosinophils% 1.7 % (0-5); Hematocrit 32.9 % (37-47); Hemoglobin 10.4 g/dL (12.0-15.0); Lymphocyte # 1.99 X10^3/ul (4.0); Lymphocyte % 28.1 % (19-41); Mean Corp Hgb Conc 31.6 g/dL (32-36); Mean Corpuscular Hgb 30.9 pg (27.0-32.0); Mean Corpuscular Volume 97.6 fL (81-99); Mean Platelet Vol. 10.4 fl (6.2-12.0); Monocyte# 0.75 X10^3/uL; Monocyte% 10.6 % (0-10); NRBC Flagged by Analyzer 0 % (0-5); Neutrophil # 4.14 X10^3/uL (2.7-7.7); Neutrophil % 58.7 % (47-70); Platelet Count 274 K/mm3 (150-450); RBC Distribution Width CV 15.2 % (11.6-14.6); RBC Distribution Width SD 54.9 fl (35.1-43.9); Red Blood Count 3.37 M/mm3 (4.2-5.4); White Blood Count 7.1 K/mm3 (4.4-11.0)
[2020-03-19 06:38] LABS: Anion Gap 5 (5-15); BUN 9 mg/dL (7-18); BUN/Creat Ratio 14.6 RATIO (10-20); Calcium,Total 8.4 mg/dL (8.5-10.1); Chloride 113 mmol/L (98-107); Creatinine, Serum 0.62 mg/dL (0.55-1.02); EST Glomerular Filtration Rate 105 mL/min (>60); Est Glom Filt Rate - Afr Amer 128 mL/min (>60); Estimated Creatinine Clearance 63.08 ml/min; Glucose 76 mg/dL (74-106); Potassium 3.4 mmol/L (3.5-5.1); Sodium Level 142 mmol/L (136-145)
[2020-03-19] MEDS: 0.9% Normal Saline 1,000 ML 100 ML IV (06:48)
[2020-03-19] MEDS: HYDROmorphone 1 MG/ML Syringe IV ×2 (07:57→12:26)
[2020-03-19] MEDS: 0.9% Saline Lock 10 ML Syringe IV ×2 (07:57→12:26)
[2020-03-19] MEDS: Labetalol (Prefilled) 20 MG/4 ML 5 MG IV (10:20)
[2020-03-19] MEDS: Lactated Ringers 1,000 ML 100 ML IV (10:45)
--- NOTE | 2020-03-19 11:19 | OP.EGD_ITS ---
Patient Name: Arabella Buchanan Procedure Date: 03/19/2020 11:03 AM Date of : 1960 Age: 59 Procedure: Upper GI endoscopy Indications: Dysphagia Providers: Be Watt MD Medicines: Monitored Anesthesia Care Patient Profile: This is a 59 year old female. Refer to note in patient chart for documentation of history and physical. Complications: No immediate complications. Estimated blood loss: Minimal. Procedure: Pre-Anesthesia Assessment: - Prior to the procedure, a History and Physical was performed, and patient medications and allergies were reviewed. The patient's tolerance of previous anesthesia was also reviewed. The risks and benefits of the procedure and the sedation options and risks were discussed with the patient. All questions were answered, and informed consent was obtained. Prior Anticoagulants: The patient has taken no previous anticoagulant or antiplatelet agents. After reviewing the risks and benefits, the patient was deemed in satisfactory condition to undergo the procedure. After obtaining informed consent, the endoscope was passed under direct vision. Throughout the procedure, the patient's blood pressure, pulse, and oxygen saturations were monitored continuously. The gastroscope was introduced through the mouth, and advanced to the middle third of esophagus. The upper GI endoscopy was accomplished without difficulty. The patient tolerated the procedure well. Scope In: 11:04:55 AM Scope Out: 11:09:48 AM Total Procedure Duration Time 0 hours 4 minutes 53 seconds Findings: One benign-appearing, intrinsic stenosis was found. There was saliva in the esophagus and food impacted in the stricture. The food was advanced past the stenosis and the saliva drained distally. This stenosis was severe (stenosis; an endoscope cannot pass) and measured 8 mm (inner diameter). The stenosis was not traversed. A TTS dilator was passed through the scope. Dilation with a 6-7-8 mm balloon dilator was performed to 9 mm. The dilation site was examined following endoscope reinsertion and showed no change. Biopsies were taken with a cold forceps for histology. Impression: - Benign-appearing esophageal stenosis. Dilated. Biopsied. Recommendation: - Full liquid diet. - Continue present medications. Procedure Code(s): --- Professional --- 27925, Esophagoscopy, flexible, transoral; with transendoscopic balloon dilation (less than 30 mm diameter) Diagnosis Code(s): --- Professional --- K22.2, Esophageal obstruction R13.10, Dysphagia, unspecified CPT copyright 2017 [employer]. All rights reserved. The codes documented in this report are preliminary and upon insurance billing specialist review may be revised to meet current compliance requirements. Be Watt MD 03/19/2020 11:19:36 AM This report has been signed electronically. Number of Addenda: 0 Note Initiated On: 03/19/2020 11:03 AM
--- NOTE | 2020-03-19 11:20 | OP.CCLET_ITS ---
03/19/2020 Sha Mckay Do Re : Upper GI endoscopy procedure for Arabella Buchanan Dear Woody This procedure was performed on Thursday, March 19, 2020. My impressions and recommendations are as follows: Impressions : - Benign-appearing esophageal stenosis. Dilated. Biopsied. Recommendations : - Full liquid diet. - Continue present medications. My findings are described in the full procedure note, which is enclosed. If I can be of further assistance, please feel free to contact me at Doctor phone number(s): , Work: . Sincerely, Be Watt MD 03/19/2020 11:19:36 AM This report has been signed electronically.
--- NOTE | 2020-03-19 12:04 | PCM.DC ---
- Discharge Diagnoses Current Active Problems: Current Active and Chronic Problems Hypertensive urgency (Acute) Dehydration (Acute) Hypokalemia (Acute) Dysphagia (Acute) Esophageal stricture (Chronic) You will use the following diet at home:: Full liquid Your liquids should be the consistency of: Regular/Thin Weight Bearing Status: Weight bearing as tolerated Allergies/Adverse Reactions: Allergies No Known Allergies Allergy (Verified 03/17/20 21:53) Medications to take at Discharge Aspirin [Aspirin, Baby] 81 mg PO DAILY@0800 02/02/20 Atorvastatin Calcium 40 mg PO QHS 02/02/20 Acetaminophen [Tylenol Tablet] 650 mg PO Q6H PRN PRN tab 02/06/20 Losartan Potassium [Cozaar] 50 mg PO DAILY tab 02/06/20 Metoprolol Tartrate [Lopressor (beta angie)] 50 mg PO DAILY 03/05/20 Duloxetine HCl 60 mg PO DAILY 03/17/20 Ondansetron [Ondansetron Odt] 4 mg PO PRN PRN 03/17/20 traZODone [Desyrel] 50 mg PO QHS 03/17/20 Omeprazole Magnesium [Prilosec Otc] 20 mg PO BID #60 tablet. 03/19/20 The following prescriptions were given: Omeprazole Magnesium [Prilosec Otc] 20 mg PO BID #60 tablet. Transmission Status: Pending to [facility] Orders to be completed after discharge: General surgery Location: None Selected Primary Care Physician: Care Physician,No Primary [NON-STAFF] - Please follow up with your Primary Care Physician in: in one week Test Results: Test results from this visit will be discussed in further detail at your follow-up appointment, if applicable.
--- NOTE | 2020-03-19 13:21 | CASEMGMT ---
EDISON MEDELLIN NOTE: Pt being discharged. EDISON MEDELLIN to room to talk with pt. She denies needs for any HHC/therapy. States she may be interested in getting a shower chair/tub bench. She states her niece currently helps her in/out of tub, but she would like to try and be more independent. Pt made aware this is not covered by insurance and recommended to check at local drug stores or thrift stores for this item. Pt voices understanding. Pt denies other needs or concerns w/going home @ discharge. Chang PERKINS RN, CM
--- NOTE | 2020-03-19 13:33 | PHA.DC.MR ---
Pharmacy Service has performed discharge medication reconciliation for this patient. The patient's discharge medication list was reviewed for discrepancies and discrepancies were resolved. Home Medications Aspirin [Aspirin, Baby] 81 mg PO DAILY@0800 02/02/20 Atorvastatin Calcium 40 mg PO QHS 02/02/20 Acetaminophen [Tylenol Tablet] 650 mg PO Q6H PRN PRN tab 02/06/20 Losartan Potassium [Cozaar] 50 mg PO DAILY tab 02/06/20 Metoprolol Tartrate [Lopressor (beta angie)] 50 mg PO DAILY 03/05/20 Duloxetine HCl 60 mg PO DAILY 03/17/20 Ondansetron [Ondansetron Odt] 4 mg PO PRN PRN 03/17/20 traZODone [Desyrel] 50 mg PO QHS 03/17/20 Omeprazole Magnesium [Prilosec Otc] 20 mg PO BID #60 tablet. 03/19/20
--- NOTE | 2020-03-19 15:47 | DS.PCM_ITS ---
Discharge Date and Diagnosis Date of Admission: 03/18/20 Date of Discharge: 03/19/20 - Primary Discharge Diagnosis Acute Problems: #1 esophageal stricture #2 hypokalemia #3 hypertension #4 hyperlipidemia #5 GERD - Secondary Discharge Diagnosis Chronic Problems: Chronic Problems Homelessness (Chronic) Chronic alcoholic hepatitis (Chronic) EtOH dependence (Chronic) Esophageal stricture (Chronic) History of CVA (cerebrovascular accident) (Chronic) HLD (hyperlipidemia) (Chronic) Gastroesophageal reflux disease (Chronic) Depression (Chronic) Benign essential HTN (Chronic) Hospital Course and Treatment Operations: None Procedures: EGD - To distal esophagus with esophageal dilatation Summary of Care Provided: The patient is a 59 year old F who was seen in the emergency room at [facility] with a chief complaint of inability to eat with inability to pass food down her esophagus with resultant vomiting. Patient has a past history of esophageal stricture before, she underwent esophageal dilatation approximately 5 months prior to being seen in the emergency room and was following up with a overlock waistline joiner but she was told that her insurance would not cover there facility and she came to the emergency room at [facility] for evaluation. Lab was obtained in the emergency room showed a normal CBC, her chemistry panel was abnormal with a potassium of 2.1, chloride of 111, and sodium of 147, general surgery was contacted-they performed her last esophageal dilatation-they agreed to see the patient in consultation and she was admitted to PCU, given potassium supplementation, fluids, and the patient underwent an EGD on 03/19/2020. EGD was performed to the distal esophagus, there was noted to be a severe stricture and this was dilated slightly but the scope could not be advanced into the stomach. There was noted to be impacted food and mucus at the distal esophagus. On 03/19/2020, patient was seen and examined after her endoscopy: On examination she appeared older than her stated age, she appeared cachectic,, she does not appear to be in any distress. Vital signs as documented. Skin warm and dry and without overt rashes. Neck without JVD, thyroid appears normal, trachea is midline, neck is supple. Lungs clear, normal air movement was noted. Heart exam notable for regular rhythm, normal sounds and absence of murmurs, rubs or gallops. Abdomen unremarkable and without evidence of organomegaly, masses, or abdominal aortic enlargement, bowel sounds are present in all 4 quadrants, no abdominal tenderness was noted. Extremities nonedematous, no cyanosis was noted, no clubbing was noted. Neuro: Cranial nerves II through XII are grossly intact, no focal motor deficits were noted, sensation to light touch and pinprick is intact, motor exam 5/5 throughout. Psych: Patient is alert and oriented x3, she does not appear anxious or depressed, she does not appear agitated. On 03/19/2020, patient was discharged home in stable condition, prior to her discharge, I talked with her PCP--and made her aware of the patient's hospitalization and her hospital course. I suggested that she make arrangements for the patient to be evaluated by a thoracic surgeon for possible esophagectomy at her area of of stenosis. According to general surgery, Dr. Watt talked with the patient's POA and gave the patient's POA a physician's name and [place] for the patient to be evaluated by. - Physical Exam Vitals/I&O's: Vital Signs Temp Pulse Resp BP Pulse Ox 98.3 F 66 16 185/100 H 94 03/19/20 12:12 03/19/20 12:12 03/19/20 12:12 03/19/20 12:12 03/19/20 12:12 Oxygen Delivery Method Room Air Weight: 40.4 kg Body Mass Index (BMI) 15.7 Intake and Output for Last 24 Hours 03/17/20 03/18/20 03/19/20 23:59 23:59 23:59 Intake Total 3337.09 / 3337.09 1750.00 / 1750.00 Balance 3337.09 / 3337.09 1750.00 / 1750.00 Microbiology Past 72 Hours 03/18/20 00:50 Urine, Clean Catch Urine Culture - Preliminary Mixed Gram Positive Organisms Laboratory Results 03/18/20 17:50: Sodium 146 H, Potassium 2.9 L, Chloride 112 H, Carbon Dioxide 27.0, Anion Gap 7, BUN 12, Creatinine 0.71, Estim Creat Clear Calc 55.08, Est GFR (MDRD) Af Amer 108, Est GFR (MDRD) Non-Af 90, BUN/Creatinine Ratio 16.9, Glucose 101, Calcium 8.4 L 03/18/20 17:50: Magnesium 2.0 03/19/20 05:36: Sodium 142, Potassium 3.4 L, Chloride 113 H, Carbon Dioxide 24.0, Anion Gap 5, BUN 9, Creatinine 0.62, Estim Creat Clear Calc 63.08, Est GFR (MDRD) Af Amer 128, Est GFR (MDRD) Non-Af 105, BUN/Creatinine Ratio 14.6, Glucose 76, Calcium 8.4 L 03/19/20 05:36: WBC 7.1, RBC 3.37 L, Hgb 10.4 L, Hct 32.9 L, MCV 97.6, MCH 30.9, MCHC 31.6 L, RDW Std Deviation 54.9 H, RDW Coeff of Richard 15.2 H, Plt Count 274, MPV 10.4, Immature Gran % (Auto) 0.100, Neut % (Auto) 58.7, Lymph % (Auto) 28.1, Wright % (Auto) 10.6 H, Eos % (Auto) 1.7, Baso % (Auto) 0.8, Absolute Neuts (auto) 4.1, Absolute Lymphs (auto) 1.99, Nucleated RBC % 0 Weight Bearing Status: Weight bearing as tolerated Home Medications: Medications to take at Discharge Aspirin [Aspirin, Baby] 81 mg PO DAILY@0800 02/02/20 Atorvastatin Calcium 40 mg PO QHS 02/02/20 Acetaminophen [Tylenol Tablet] 650 mg PO Q6H PRN PRN tab 02/06/20 Losartan Potassium [Cozaar] 50 mg PO DAILY tab 02/06/20 Metoprolol Tartrate [Lopressor (beta angie)] 50 mg PO DAILY 03/05/20 Duloxetine HCl 60 mg PO DAILY 03/17/20 Ondansetron [Ondansetron Odt] 4 mg PO PRN PRN 03/17/20 traZODone [Desyrel] 50 mg PO QHS 03/17/20 Omeprazole Magnesium [Prilosec Otc] 20 mg PO BID #60 tablet. 03/19/20 Following Prescriptions Were Given to Patient: Omeprazole Magnesium [Prilosec Otc] 20 mg PO BID #60 tablet. Transmission Status: Received by [facility] #30 Other Amb Orders: General surgery Location: None Selected Primary Care Physician: Care Physician,No Primary [NON-STAFF] - Please follow up with your Primary Care Physician in: in one week Please Follow Up With: Sha Mckay DO When: 1 week Disposition: Home Minutes spent on discharge:: 32 Patient Condition:: Stable Medical Necessity - Tobacco Use Smoking Status: Current every day smoker Meaningful Use Info Meaningful Use Diagnoses (Choose all that apply): None applicable Inpatient E&M: 02916 Disch Hosp
--- NOTE | 2020-03-20 14:17 | CASEMGMT ---
[facility] CM Discharge Follow-Up Phone Call. Lace: 13 Strata: 3 Discharge Date: 03/19/20 Adm Dx: Dysphagia, hypokalemia, esophageal stricture Call to pt to inquire about how she has been doing since being discharged from the hospital. No answer and VM is not set up so unable to leave a message. Call placed to pt's niece, Flaca, and VM message left with CM contact number they can call if they have any questions or concerns. Chang DOLANN RN CM
== END 2020-03-19 14:16 | disposition home or self-care (01) | DRG 392 ==
LOC: ED 03-18 01:33 → PCU 03-18 02:30
PROVIDERS: Family Medicine; Surgery; Admitting Provider Family Medicine; Emergency Provider Emergency Medicine; PCP Student in an Organized Health Care Education/Training Program; Visit Provider Internal Medicine
PROC: 0DJ08ZZ Inspection of Upper Intestinal Tract, Via Natural or Artificial Opening Endoscopic (ICD-10-PCS; CPT 43235; principal; 2020-03-19 10:55)
DX: K22.2 Esophageal obstruction (principal); K21.9 Gastro-esophageal reflux disease without esophagitis; E87.6 Hypokalemia; I16.0 Hypertensive urgency; E86.0 Dehydration; I10 Essential (primary) hypertension; E78.5 Hyperlipidemia, unspecified; K70.10 Alcoholic hepatitis without ascites; F10.20 Alcohol dependence, uncomplicated; F32.9 Major depressive disorder, single episode, unspecified; F41.9 Anxiety disorder, unspecified; F17.200 Nicotine dependence, unspecified, uncomplicated; Z59.0 Homelessness; Z79.82 Long term (current) use of aspirin; Z79.899 Other long term (current) drug therapy; Z86.73 Personal history of transient ischemic attack (TIA), and cerebral infarction without residual deficits
CPT/HCPCS: 36415; 80048; 81001; 83735; 84484; 85025; 87086; 87088; 88305; 88313; 88341; 88342; 93005; 97802; 99285; 99406; J7030; J7120; A4216; J2405

== ENCOUNTER 2020-03-23 19:15 | Emergency (ER) | payer MEDICARE, MEDICAID, SELFPAY ==
[2020-03-19 07:20] VITALS: BMI 15.7
[2020-03-23 19:16] VITALS: BP 191/104; PULSE 86; RESP 15; TEMP 36.1; O2SAT 97; BMI 16.2
--- NOTE | 2020-03-23 19:49 | ED.DCSUM_ITS ---
History of Present Illness Chief Complaint: Dental Informant: Patient Onset: Days - 1.5 days Context: Sudden Onset Timing: Continuous Quality: Pain Location: Right lower tooth Current Severity: Mild Maximum Severity: Severe Worsened by: Cold liquids question hot liquids Relieved by: - - States no improvement with NSAIDs or topical agents. Associated Symptoms: Cold, - - Denies fever, jaw swelling or facial swelling. She denies facial rash. Narrative: Patient is a 59-year-old woman who presents with dental pain. She states the pain started 1.5 days ago. The pain started abruptly. The pain is made worse with cold. She does not complain of hot sensitivity. She denies fever, chills or night sweats. She has difficulty opening closing her mouth completely. No change in voice. Denies drooling. There is no history medic fever, heart murmur, SBE, IV drug use or being immune suppressed. She is not on anticoagulant. She has no contraindications to NSAIDs. Prior similar symptoms: No Recent Illness/Hospitalization: No - Past Medical History (1) Dysphagia Status: Acute (2) Benign essential HTN Status: Chronic (3) Chronic alcoholic hepatitis Status: Chronic (4) Depression Status: Chronic (5) Esophageal stricture Status: Chronic (6) Gastroesophageal reflux disease Status: Chronic (7) HLD (hyperlipidemia) Status: Chronic (8) History of CVA (cerebrovascular accident) Status: Chronic Past Medical History - Allergies and Home Meds Allergies/Adverse Reactions: Allergies No Known Allergies Allergy (Verified 03/23/20 19:19) Primary Care Physician: Sha Mckay DO [Primary Care Provider] - Prior records reviewed: Yes Surgical History: noncontributory, - - Thyroid cyst surgery, rib removal, tonsillectomy, prior esophageal dilations. Lives: Alone Smoking Status: Current every day smoker Alcohol: Heavy Drugs: None - Family History Maternal Family History: Family History (Last Reviewed 02/02/20 @ 03:[address] Musa Navarrete MD) Brother Alcoholism Father CVA (cerebral vascular accident) Family History: Reports: - - Patient states she does not know any of her maternal family history as her mother when she was 5 years old but she denies any history of heart disease, diabetes, cancer, unclear etiology for de ath. Paternal Family History: Family History (Last Reviewed 02/02/20 @ 03:[address] Musa Navarrete MD) Brother Alcoholism Father CVA (cerebral vascular accident) Family History: Reports: Stroke Review of Systems General: Denies: Chills, Fever, Malaise, Subjective Eyes: Denies: Visual changes - bilaterally, Blurred Vision - bilaterally ENT: Reports: - - Has not of dental pain.. Denies: Rhinorrhea, Sore throat Cardiovascular: Denies: Chest pain, Palpitations Respiratory: Denies: Dyspnea, Cough, Dyspnea on exertion Gastrointestinal: Denies: Nausea, Vomiting Musculoskeletal: Denies: Myalgias, Arthralgias, Neck pain, Back pain Skin: Denies: Rash Neurological: Denies: Headache Hematologic: Denies: Easy bruising, Easy bleeding Physical Exam Vital Signs/Narrative: Vital Signs Temp Pulse Resp BP Pulse Ox 03/23/20 19:16 97.0 F L 86 15 191/104 H 97 Inital Vital Signs reviewed: Yes General: Well nourished, Well developed, Unkempt ENT: Moist mucous membranes, Nasal congestion, No nasal trauma, No rhinorrhea. Negative for: Sinus tenderness Mouth/Throat: Normal oral mucosa, Normal posterior oropharynx, No sublingual edema, Normal Stensen's duct, Dental abscess, Focal dental decay, Gingivitis, Tenderness on tooth percussion, Widespread dental decay. Negative for: Normal inspection lips/gums, No dental tenderness, Apthous ulcer, Dental trauma, Dental avulsion, Dentral fracture, Filling loss, Trismus Neck: Supple, No lymphadenopathy, Nontender, No JVD, - - Nomi is midline. There is no inspiratory expiratory stridor. Cardiovascular: Regular rate, Regular rhythm, No murmurs, Normal S1, Normal S2 Respiratory: No distress, CTA bilaterally, Chest nontender Extremities: Nontender, No edema Skin: Normal color, No rash Neurological: Alert, Oriented x3, Cranial nerves II-XII grossly intact, Normal Strength, Normal Sensation Psychological: Normal affect, Normal Mood Diagnostic/Tx/Re-eval - Medical Decision Making With extensive dental decay with exposure of dentin and pulp. There is also soft tissue swelling around tooth #29 and 30. There is no evidence of Ludewig's angina. There is no evidence of facial cellulitis. Patient was treated with opiate analgesia, NSAID and antibiotics. ED Disposition - Plan for ED Patient: Disposition: Home or Assisted Living Diagnosis: Dental abscess, Dental caries extending into pulp, Dental caries extending into dentine Instructions: ED ABSCESS DENTAL, ED CAVITY Dental Prescriptions: Naproxen [Naprosyn] 500 mg PO BID #14 tab Prescription Printed Hydrocodone Bitart/Apap 5-325 [Adrian 5MG-325MG] 1 tab PO Q6H PRN PRN 3 Days #10 tab PRN Reason: Pain Prescription Printed Penicillin V Potassium 500 mg PO 4X/DAY #40 tab Prescription Printed Referrals: Sha Mckay DO [Primary Care Provider] - Dentist,Your [STAFF PHYSICIAN] - 5-7 Days
[2020-03-23] MEDS: Naproxen 250 MG Tablet 500 MG PO (19:54)
[2020-03-23] MEDS: HYDROcodone Bitartrate/Apap 5/325 Tablet PO (19:54)
[2020-03-23] MEDS: Clindamycin HCl 150 MG Capsule 300 MG PO (19:55)
== END 2020-03-23 19:59 | disposition home or self-care (01) ==
PROVIDERS: Emergency Provider Emergency Medicine; PCP Student in an Organized Health Care Education/Training Program
DX: K04.7 Periapical abscess without sinus (principal); K02.9 Dental caries, unspecified; K70.10 Alcoholic hepatitis without ascites; I10 Essential (primary) hypertension; E78.5 Hyperlipidemia, unspecified; K22.2 Esophageal obstruction; R13.10 Dysphagia, unspecified; K21.9 Gastro-esophageal reflux disease without esophagitis; F32.9 Major depressive disorder, single episode, unspecified; F17.200 Nicotine dependence, unspecified, uncomplicated; Z79.82 Long term (current) use of aspirin; Z79.1 Long term (current) use of non-steroidal anti-inflammatories (NSAID); Z79.899 Other long term (current) drug therapy; Z86.73 Personal history of transient ischemic attack (TIA), and cerebral infarction without residual deficits
CPT/HCPCS: 99283

== ENCOUNTER → 2020-03-25 09:17 | Outpatient (CLI) | payer MEDICARE, MEDICAID, SELFPAY ==
[2020-03-18 02:27] VITALS: BMI 15.7
[2020-03-23 19:16] VITALS: BMI 16.2
--- NOTE | 2020-03-25 09:21 | US_ITS ---
STUDY: ABDOMINAL ULTRASOUND REASON FOR EXAM: Female, 59 years old. WEIGHT LOSS NAUSEA,VOMITING, DIARRHEA SEVERAL MONTHS TECHNIQUE: Transabdominal ultrasound was performed with real-time and static moon scale imaging. TECHNICAL QUALITY: Adequate. COMPARISON: CT 02/01/2020 FINDINGS: Liver: The liver measures 15.6 cm. There is normal echogenicity of the liver. The bile ducts are within normal limits. There is hepatic color flow. The direction of portal flow is hepatopetal. Multiple hepatic cysts are present, the largest measuring up to 2.6 cm. Portal vein measurement: Gallbladder: Normal distended gallbladder. The gallbladder wall measures 4 mm. There is a negative sonographic Long''s sign. There is no pericholecystic fluid. There are no gallstones. Common Bile Duct (C.B.D.): The common bile duct measures 5 mm. Pancreas: Normal size of the head, body and tail of the pancreas. There is normal echogenicity of the pancreas. There is no demonstrated pancreatic mass or cyst. Spleen: Normal size of the spleen. The spleen measures 8.6 cm. Right Kidney: Normal size of the right kidney. The right kidney measures 10.3 x 5.2 x 4.9 cm. Normal renal cortex. The right cortex measures 1.3 cm. There is no demonstrated renal mass or cyst. There is no right hydronephrosis. Left Kidney: Normal size of the left kidney. The left kidney measures 8.4 x 4.2 x 3.5 cm. Normal renal cortex. The left cortex measures 1.0 cm. 10 mm lateral simple cyst. There is no left hydronephrosis. Aorta: Normal in caliber. Calcified plaque. I.V.C.: The IVC is patent. There is no ascites. US/Abdomen Complete IMPRESSION: Mild gallbladder wall thickening. No gallstones are seen. Normal common bile duct. Multiple hepatic cysts. Electronically Signed: Fer Momin MD at 19:34 EDT Tel , Service support ,
== END ==
PROVIDERS: PCP Student in an Organized Health Care Education/Training Program
DX: K21.9 Gastro-esophageal reflux disease without esophagitis (principal); R13.10 Dysphagia, unspecified; R10.11 Right upper quadrant pain; R11.2 Nausea with vomiting, unspecified; F10.11 Alcohol abuse, in remission
CPT/HCPCS: 76700

== ENCOUNTER 2020-05-08 17:28 | Emergency (ER) | payer MEDICARE, MEDICAID, SELFPAY ==
[2020-05-08 17:30] VITALS: BP 109/92; PULSE 83; RESP 18; TEMP 36.8; O2SAT 96; BMI 20.2
--- NOTE | 2020-05-08 17:48 | ED.DCSUM_ITS ---
History of Present Illness Chief Complaint: Mental Status Change Informant: Patient, Family Narrative: 59-year-old female presenting with altered mental status. Her family gives most of the history. She states that the patient has been more confused recently. She has been sleepwalking and putting things in strange places. She notes that the patient woke up with a knife next to her the other day. She states that she is growling at her daughter. She also states she fell hitting her head the other day. She said it did not seem that hard because she fell in a chair first and then rolled off of it. She also relates that the patient is a heavy drinker. She has been in [facility] before but then continues to drink when she gets out. She also states that she gets frequent urinary tract infections. The patient does not like to take her potassium because it tasted bad and she has a history of hypokalemia. - Past Medical History (1) Dysphagia Status: Chronic (2) Hypertensive urgency Status: Chronic (3) Hypokalemia Status: Chronic (4) Benign essential HTN Status: Chronic (5) Chronic alcoholic hepatitis Status: Chronic (6) Depression Status: Chronic Past Medical History - Allergies and Home Meds Allergies/Adverse Reactions: Allergies No Known Allergies Allergy (Verified 05/08/20 17:33) Primary Care Physician: Sha Mckay DO [Primary Care Provider] - Past Medical History: - - Reviewed in problem list Surgical History: noncontributory, - - Thyroid cyst surgery, rib removal, tonsillectomy, prior esophageal dilations. Lives: With Family Smoking Status: Current every day smoker Alcohol: Heavy Drugs: None - Family History Maternal Family History: Family History (Last Reviewed 02/02/20 @ 03:[address] Musa Navarrete MD) Brother Alcoholism Father CVA (cerebral vascular accident) Family History: Reports: - - Patient states she does not know any of her maternal family history as her mother when she was 5 years old but she denies any history of heart disease, diabetes, cancer, unclear etiology for . Paternal Family History: Family History (Last Reviewed 02/02/20 @ 03:[address] Musa Navarrete MD) Brother Alcoholism Father CVA (cerebral vascular accident) Family History: Reports: Stroke Review of Systems General: Denies: Chills, Fever, Sweats Eyes: Denies: Visual changes - bilaterally, Diplopia ENT: Denies: Rhinorrhea, Sore throat Cardiovascular: Denies: Chest pain, Palpitations Respiratory: Denies: Dyspnea, Cough, Dyspnea on exertion Gastrointestinal: Reports: - - Decreased appetite.. Denies: Abdominal pain, Nausea, Vomiting, Diarrhea, Melena, Hematochezia Genitourinary: Denies: Dysuria, Hematuria Musculoskeletal: Denies: Myalgias, Arthralgias Skin: Denies: Rash, Abscess Psych: Denies: Suicidal thoughts, Suicidal ideations Physical Exam Vital Signs/Narrative: Vital Signs Temp Pulse Resp BP Pulse Ox 05/08/20 17:30 98.3 F 83 18 109/92 H 96 General: Cachectic, Unkempt Head: Normocephalic, Atraumatic Eyes: Perrl, EOMI. Negative for: Scleral icterus ENT: Moist mucous membranes, No rhinorrhea Cardiovascular: Regular rate, Regular rhythm Respiratory: No distress, CTA bilaterally Abdomen: Soft, Nontender Back: Nontender, Normal Inspection Extremities: Nontender, No edema Skin: Normal color, No rash Neurological: Alert, Cranial nerves II-XII grossly intact, Inattentive Diagnostic/Tx/Re-eval Clinical Impression(s) from Imaging Studies Brain CT 05/08/20 17:56 IMPRESSION: Mild periventricular white matter ischemic change. No evidence for acute bleed. If concern for acute infarct MRI recommended Electronically Signed: Luis Avilez MD at 19:45 EDT , Service support , Chest X-Ray 05/08/20 18:50 IMPRESSION: No acute cardiopulmonary pathology Electronically Signed: Luis Avilez MD at 19:53 EDT , Service support , Laboratory Data 05/08/20 05/08/20 05/08/20 18:30 18:30 18:30 WBC 9.4 RBC 4.88 Hgb 14.7 Hct 42.4 MCV 86.9 MCH 30.1 MCHC 34.7 RDW Std Deviation 58.3 H RDW Coeff of Richard 18.5 H Plt Count 371 MPV 9.0 Immature Gran % (Auto) 0.300 Neut % (Auto) 61.3 Lymph % (Auto) 30.7 [place] % (Auto) 6.9 Eos % (Auto) 0.2 Baso % (Auto) 0.6 Absolute Neuts (auto) 5.8 Absolute Lymphs (auto) 2.89 Nucleated RBC % 0 PT 12.0 INR 0.9 Sodium 123 L Potassium 3.9 Chloride 86 L Carbon Dioxide 21.0 Anion Gap 16 H BUN 14 Creatinine 0.67 Estim Creat Clear Calc 69.06 Est GFR (MDRD) Af Amer 116 Est GFR (MDRD) Non-Af 96 BUN/Creatinine Ratio 20.9 H Glucose 68 L Calcium 7.9 L Total Bilirubin 0.60 AST 15 ALT 19 Alkaline Phosphatase 89 Ammonia Total Protein 6.9 Albumin 3.3 Globulin 3.6 Albumin/Globulin Ratio 0.9 Lipase 117 Urine Color Urine Clarity Urine pH Ur Specific [place] Urine Protein Urine Glucose (UA) Urine Ketones Urine Occult Blood Urine Nitrite Urine Bilirubin Urine Urobilinogen Ur Leukocyte Esterase Urine RBC Urine WBC Ur Squamous Epith Cells Urine Bacteria Urine Mucus Urine Opiates Screen Urine Methadone Screen Ur Barbiturates Screen Ur Phencyclidine Scrn Ur Amphetamines Screen U Methamphetamin-MDMA U Benzodiazepines Scrn Urine Cocaine Screen U Cannabinoids Screen Ur Drug Screen Comment Ethyl Alcohol Acetone Level 05/08/20 05/08/20 05/08/20 18:30 18:30 18:30 WBC RBC Hgb Hct MCV MCH MCHC RDW Std Deviation RDW Coeff of Richard Plt Count MPV Immature Gran % (Auto) Neut % (Auto) Lymph % (Auto) [place] % (Auto) Eos % (Auto) Baso % (Auto) Absolute Neuts (auto) Absolute Lymphs (auto) Nucleated RBC % PT INR Sodium Potassium Chloride Carbon Dioxide Anion Gap BUN Creatinine Estim Creat Clear Calc Est GFR (MDRD) Af Amer Est GFR (MDRD) Non-Af BUN/Creatinine Ratio Glucose Calcium Total Bilirubin AST ALT Alkaline Phosphatase Ammonia 32.0 Total Protein Albumin Globulin Albumin/Globulin Ratio Lipase Urine Color Urine Clarity Urine pH Ur Specific [place] Urine Protein Urine Glucose (UA) Urine Ketones Urine Occult Blood Urine Nitrite Urine Bilirubin Urine Urobilinogen Ur Leukocyte Esterase Urine RBC Urine WBC Ur Squamous Epith Cells Urine Bacteria Urine Mucus Urine Opiates Screen Urine Methadone Screen Ur Barbiturates Screen Ur Phencyclidine Scrn Ur Amphetamines Screen U Methamphetamin-MDMA U Benzodiazepines Scrn Urine Cocaine Screen U Cannabinoids Screen Ur Drug Screen Comment Ethyl Alcohol 285.0 Acetone Level NEGATIVE 05/08/20 05/08/20 18:38 18:38 WBC RBC Hgb Hct MCV MCH MCHC RDW Std Deviation RDW Coeff of Richard Plt Count MPV Immature Gran % (Auto) Neut % (Auto) Lymph % (Auto) [place] % (Auto) Eos % (Auto) Baso % (Auto) Absolute Neuts (auto) Absolute Lymphs (auto) Nucleated RBC % PT INR Sodium Potassium Chloride Carbon Dioxide Anion Gap BUN Creatinine Estim Creat Clear Calc Est GFR (MDRD) Af Amer Est GFR (MDRD) Non-Af BUN/Creatinine Ratio Glucose Calcium Total Bilirubin AST ALT Alkaline Phosphatase Ammonia Total Protein Albumin Globulin Albumin/Globulin Ratio Lipase Urine Color Yellow Urine Clarity Clear Urine pH 5.0 Ur Specific [place] 1.015 Urine Protein Negative Urine Glucose (UA) Normal Urine Ketones Negative Urine Occult Blood Negative Urine Nitrite Negative Urine Bilirubin Negative Urine Urobilinogen Normal Ur Leukocyte Esterase Negative Urine RBC 0 SEEN Urine WBC 0 SEEN Ur Squamous Epith Cells 0 SEEN Urine Bacteria 0 SEEN Urine Mucus 0 SEEN Urine Opiates Screen NEGATIVE Urine Methadone Screen NEGATIVE Ur Barbiturates Screen NEGATIVE Ur Phencyclidine Scrn NEGATIVE Ur Amphetamines Screen NEGATIVE U Methamphetamin-MDMA NEGATIVE U Benzodiazepines Scrn NEGATIVE Urine Cocaine Screen NEGATIVE U Cannabinoids Screen NEGATIVE Ur Drug Screen Comment Ethyl Alcohol Acetone Level - Medical Decision Making Patient presents with her daughter for evaluation because she has been doing strange things at home and seems more confused. She is also sleepwalking more. Patient is found to be intoxicated with alcohol. A drug screen is negative. Her vital signs are normal. Chest x-ray and CT brain are negative. Patient does have hyponatremia but she is alert and oriented and refused to stay in the hospital. Her daughter will drive her home. She has a stable gait at this time. She was given strict return precautions. Impression: 1. EtOH abuse 2. Hyponatremia ED Disposition - Plan for ED Patient: Disposition: Home or Assisted Living Instructions: Hyponatremia, ED ALOC, ED INTOXICATION Alcohol Referrals: Sha Mckay DO [Primary Care Provider] -
--- NOTE | 2020-05-08 17:56 | CT_ITS ---
STUDY: CT BRAIN WITHOUT CONTRAST REASON FOR EXAM: Female, 59 years old. and quot;WELL CHECK and quot; SLEEP WALKING, CONFUSION, NOT EATING, ETOH, 3 FALLS LAST WEEK RADIATION DOSAGE (If Supplied By Facility): CTDIvol = ( 44.99 ) mGy, DLP = ( 745.49 ) mGycm TECHNIQUE: Transaxial CT imaging of the brain was performed without administration of intravenous contrast material. Individualized dose optimization techniques were used for this CT. COMPARISON: No relevant priors. FINDINGS: Normal soft tissue structures. Normal calvarium. Calcification of cavernous carotids. Normal size ventricles and extra-axial spaces for the patient''s age. Mild periventricular white matter ischemic changes.. Normal basal ganglia and thalami. Normal brainstem. Normal cerebellum. There is no intracranial hemorrhage. There are no findings of an acute ischemic infarction. Normal visualized paranasal sinuses. CT/Brain/Head without Contrast IMPRESSION: Mild periventricular white matter ischemic change. No evidence for acute bleed. If concern for acute infarct MRI recommended Electronically Signed: Luis Avilez MD at 19:45 EDT , Service support ,
--- NOTE | 2020-05-08 18:50 | RAD_ITS ---
STUDY: X-RAY CHEST REASON FOR EXAM: Female, 59 years old. ALTERED MENTAL STATUS TECHNIQUE: AP portable COMPARISON: 06/27/2019 FINDINGS: The lungs are clear and expanded. There is no demonstrated pleural abnormality. Normal size heart. Normal mediastinum and godfrey. Normal visualized pulmonary arteries. Minor calcification of the aortic arch and descending thoracic aorta. Normal visualized thoracic spine. Normal visualized ribs, clavicles, and shoulders. Postop change status post cervical fusion. There is no demonstrated abnormality of the visualized soft tissue structures of the upper abdomen. RAD/Chest 1 View (Portable) IMPRESSION: No acute cardiopulmonary pathology Electronically Signed: Luis Avilez MD at 19:53 EDT , Service support ,
[2020-05-08 19:18] LABS: Bacteria 0 SEEN /hpf (None Seen); Mucous, Urine 0 SEEN /hpf (<or=2+); Red Blood Cells-Urine 0 SEEN /hpf (0-5); Squamous Epithelial Cells - UA 0 SEEN /hpf (5-10); White Blood Cells 0 SEEN /hpf (0-5)
[2020-05-08] MEDS: 0.9% Normal Saline 1,000 ML 1000 ML IV (19:19)
[2020-05-08 19:22] LABS: Absolute Lymphocyte Count 2.89 X10^3/uL (0.83-4.51); Absolute Neutrophil Count 5.8 X10^3/uL (2.0-7.7); Basophil# 0.06 X10^3/uL; Basophil% 0.6 % (0-1); Eosinophil# 0.02 X10^3/uL; Eosinophils% 0.2 % (0-5); Hematocrit 42.4 % (37-47); Hemoglobin 14.7 g/dL (12.0-15.0); Lymphocyte # 2.89 X10^3/ul (4.0); Lymphocyte % 30.7 % (19-41); Mean Corp Hgb Conc 34.7 g/dL (32-36); Mean Corpuscular Hgb 30.1 pg (27.0-32.0); Mean Corpuscular Volume 86.9 fL (81-99); Monocyte# 0.65 X10^3/uL; Monocyte% 6.9 % (0-10); NRBC Flagged by Analyzer 0 % (0-5); Neutrophil # 5.77 X10^3/uL (2.7-7.7); Neutrophil % 61.3 % (47-70); Platelet Count 371 K/mm3 (150-450); RBC Distribution Width CV 18.5 % (11.6-14.6); RBC Distribution Width SD 58.3 fl (35.1-43.9); Red Blood Count 4.88 M/mm3 (4.2-5.4); White Blood Count 9.4 K/mm3 (4.4-11.0)
[2020-05-08 19:25] LABS: Color, Urine Yellow (Yellow); Glucose, Dipstick Normal (Normal); Ketone-Dipstick Negative (Negative); Leukocyte Esterase-Dipstick Negative /ul (Negative); Nitrite-Dipstick Negative (Negative); Occult Blood-Urine Negative /ul (Negative); Protein-Dipstick Negative (Negative); Specific Gravity, Urine 1.015 (1.002-1.030); Urine Bilirubin Dipstick Negative (Negative); Urine Clarity Clear (Clear); Urine Urobilinogen Normal (Normal)
[2020-05-08 19:31] LABS: International Normalized Ratio 0.9
[2020-05-08 19:40] LABS: ALB/GLOB Ratio 0.9 RATIO (0.9-2.4); AST(SGOT) 15 U/L (15-37); Alanine Aminotransfer ALT/SGPT 19 U/L (13-56); Albumin, Serum 3.3 g/dL (3.2-5.0); Alkaline Phosphatase 89 U/L (45-117); Anion Gap 16 (5-15); BUN 14 mg/dL (7-18); BUN/Creat Ratio 20.9 RATIO (10-20); Calcium,Total 7.9 mg/dL (8.5-10.1); Chloride 86 mmol/L (98-107); Creatinine, Serum 0.67 mg/dL (0.55-1.02); EST Glomerular Filtration Rate 96 mL/min (>60); Est Glom Filt Rate - Afr Amer 116 mL/min (>60); Estimated Creatinine Clearance 69.06 ml/min; Globulin 3.6 g/dL (2.2-4.2); Glucose 68 mg/dL (74-106); Lipase 117 U/L (73-393); Potassium 3.9 mmol/L (3.5-5.1); Protein, Total 6.9 g/dL (6.4-8.2); Sodium Level 123 mmol/L (136-145)
[2020-05-08 19:41] LABS: Amphetamine Urine VISTA NEGATIVE (<1000 ng/mL); Barbiturate Urine VISTA NEGATIVE (< 200 ng/mL); Benzodiazepine Urine VISTA NEGATIVE (< 200 ng/mL); Cocaine Urine VISTA NEGATIVE (< 300 ng/mL); Ecstacy Urine VISTA NEGATIVE (< 500 ng/mL); Methadone Urine VISTA NEGATIVE (< 300 ng/mL); PCP Urine VISTA NEGATIVE (< 25 ng/mL); THC Urine VISTA NEGATIVE (< 50 ng/mL); Vista UDS pH Range 5
--- NOTE | 2020-05-08 19:54 | CM.ED ---
Social Work Consult: Mental Health Informant: Dr. Chan Chief Complaint: Patient with bizarre behaviors in the home per patient Maria Del CarmenFlaca. Marital/Social History: Divorces Living Situation: Lives with Flaca Walker for the past 3 months. Flaca is patient health care power of personal injury attorney. Flaca aware that advanced directives are not on patient chart currently. Support/Resources: No active community resources. Education/Employment: Disability. Patient reports to forget things. Mental Health Treatment/history: Depression. Patient manages mental health through medication prescribed by patient primary care physician. Patient is compliant with mediations. Patient with a history of inpatient psychiatric placement years ago. Substance Abuse/Use: Patient reports active alcohol abuse of 3-4 24 ounce cans of malt beer a day. Patient reports history of detox due to recent [facility] home stay earlier this year but to have returned to drinking after returning to the community. Patient states to have abused alcohol since patient was 13-14 years old. Patient denies any other substance abuse/use. Patient denies being interested in detox currently. Patient unable to remember last drink and maria del carmen is unsure but assuming this morning. Risk to Self/Others: Denies active suicidal thoughts/plans/intents. Patient unclear on reason for inpatient psychiatric placement years ago. Patient states I forget. Patient maria del carmen is not sure of the details of the placement. Mental Status Exam: A&Ox3 Appearance/General Behavior: Tired. Unkept. Mood/Affect: Depressed. Sleepy. Communication Pattern: Responds to direct questions, will often defer to niece to answer the question as patient states I don't remember. Thought Process: Patient denies visual or auditory hallucinations. Patient maria del carmen reports that patient has auditory/visual hallucinations as she talks with people that are not there. Judgement: Poor. Assessment: Met with patient and patient Flaca walker in room. Introduced self and aids social worker role. Patient and Flaca agreeable to speak with this aids social worker. Patient giving this aids social worker permission to speak openly with Flaca present. Patient defers to Flaca for majority of assessment. Falca reports that patient has had an increase in difficulty. Flaca reporting that patient is not willing to corporate. Flaca reports that patient has been refusing to shower or eat. Patient only consumes beer. Flaca states that patient started to growl over the past week. Flaca states that patient is forgetful and stumbling around more. Flaca states concern of patient sleep walking as patient woke up with a knife beside patient the other day and patient was not sure how the knife got there. Per Flaca patient with a history of being paranoid and gathering knives. Flaca unsure about patient safety to others in the home as Flaca's 3 year old son lives in the home with patient. Patient states I don't know what to do. Flaca reports that patient friends are who provide patient with alcohol and Flaca has told the friends/family to stop bringing alcohol to family but they don't listen. Active support and listening provided. Collaborating with Dr. Chan. Concern for patient safety in the home with the family. Dr. Chan updated on amount of alcohol that patient is consuming in a day. Flaca is open to patient going through detox. PLAN: Undetermined. Will continue to follow. Sandee HILLMAN, SOFIA
[2020-05-08 20:52] VITALS: BP 104/79; PULSE 91; RESP 16; O2SAT 98
[2020-05-08 21:58] VITALS: BP 123/90; PULSE 80; RESP 16; O2SAT 99
== END 2020-05-08 22:06 | disposition home or self-care (01) ==
PROVIDERS: Emergency Provider Student in an Organized Health Care Education/Training Program; PCP Student in an Organized Health Care Education/Training Program
DX: F10.10 Alcohol abuse, uncomplicated (principal); E87.1 Hypo-osmolality and hyponatremia; F51.3 Sleepwalking [somnambulism]; I10 Essential (primary) hypertension; K70.10 Alcoholic hepatitis without ascites; R13.10 Dysphagia, unspecified; R64 Cachexia; F32.9 Major depressive disorder, single episode, unspecified; Z79.82 Long term (current) use of aspirin; Z79.899 Other long term (current) drug therapy; F17.200 Nicotine dependence, unspecified, uncomplicated
CPT/HCPCS: 70450; 71045; 80053; 80307; 80320; 81001; 82009; 82140; 83690; 85025; 85610; 96360; 96361; 99285; J7030; P9612; A4216; G0480

== ENCOUNTER 2020-06-18 17:05 | Inpatient (IN) | payer MEDICARE, MEDICAID, SELFPAY ==
[2020-06-18] VITALS (10 sets, daily range): BP systolic 69–149; BP diastolic 54–93; PULSE 72–95; RESP 13–20; TEMP 36.4–36.6; O2SAT 95–100; BMI 18.1; BMI 17.2
--- NOTE | 2020-06-18 17:33 | EKG12_ITS ---
Test Reason : INTOXICATION Blood Pressure : / mmHG Vent. Rate : 073 BPM Atrial Rate : 073 BPM P-R Int : 134 ms QRS Dur : 080 ms QT Int : 466 ms P-R-T Axes : 055 072 079 degrees QTc Int : 513 ms Normal sinus rhythm Possible Left atrial enlargement Left ventricular hypertrophy Prolonged QT Abnormal ECG Confirmed by ASHUTOSH SAHU, PERRI ([id number]), film or videotape editor RODDY MCCLURE ([id number]) on 06/20/2020 11:04:42 AM Referred By: ANDREA Confirmed By:PERRI BOYKIN MD
--- NOTE | 2020-06-18 17:33 | CT_ITS ---
STUDY: CT BRAIN WITHOUT CONTRAST REASON FOR EXAM: Female, 60 years old. Fall. Altered mental status. RADIATION DOSAGE (If Supplied By Facility): CTDIvol = ( 44.99 ) mGy, DLP = ( 745.49 ) mGycm TECHNIQUE: Transaxial CT imaging of the brain was performed without administration of intravenous contrast material. Individualized dose optimization techniques were used for this CT. COMPARISON: 05/08/2020. FINDINGS: Normal soft tissue structures. Normal calvarium. Normal size ventricles and extra-axial spaces for the patient''s age. Normal white matter tracts of the cerebral hemispheres. Normal basal ganglia and thalami. Normal brainstem. Normal cerebellum. There is no intracranial hemorrhage. There are no findings of an acute ischemic infarction. Normal visualized paranasal sinuses. CT/Brain/Head without Contrast IMPRESSION: No acute intracranial or calvarial abnormality. There is no major interval change. Electronically Signed: Kenji Luz DO at 18:50 EST Tel [phone], Service support ,
[2020-06-18 18:12] LABS: ALB/GLOB Ratio 0.7 RATIO (0.9-2.4); AST(SGOT) 25 U/L (15-37); Alanine Aminotransfer ALT/SGPT 18 U/L (13-56); Albumin, Serum 2.9 g/dL (3.2-5.0); Alkaline Phosphatase 104 U/L (45-117); Anion Gap 10 (5-15); BUN 25 mg/dL (7-18); BUN/Creat Ratio 17.5 RATIO (10-20); Calcium,Total 7.7 mg/dL (8.5-10.1); Chloride 103 mmol/L (98-107); Creatinine, Serum 1.43 mg/dL (0.55-1.02); EST Glomerular Filtration Rate 40 mL/min (>60); Est Glom Filt Rate - Afr Amer 48 mL/min (>60); Globulin 4.1 g/dL (2.2-4.2); Glucose 84 mg/dL (74-106); Lipase 218 U/L (73-393); Potassium 3.6 mmol/L (3.5-5.1); Sodium Level 135 mmol/L (136-145)
[2020-06-18 18:13] LABS: Bacteria 0 SEEN /hpf (None Seen); Mucous, Urine 0 SEEN /hpf (<or=2+); Red Blood Cells-Urine 0 SEEN /hpf (0-5); White Blood Cells 0 SEEN /hpf (0-5)
[2020-06-18] MEDS: 0.9% Normal Saline 1,000 ML 1000 ML IV (18:15)
--- NOTE | 2020-06-18 18:23 | ED.VIS.GEN ---
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 Per report, patient has been drinking liquor today and had multiple falls. Not clear if she has had any injuries from the falls. Patient states she just feels weak. When EMS arrived patient multiple bowel movements and was seen in her own excrement. Per patient's POA patient drinks at least a case of beer and a bottle of mad dog or black velvet liquor a day for the past 40 years. He denies any homicidal or suicidal ideations. States she has chronic tailbone pain, which is unchanged. Past Medical History - Allergies and Home Meds Allergies/Adverse Reactions: Allergies No Known Allergies Allergy (Verified 06/18/20 17:32) Primary Care Physician: Sha Mckay DO [Primary Care Provider] - Past Medical History: - - Chronic alcoholic hepatitis, alcohol dependency, history of stroke, hyperlipidemia, GERD, depression, hypertension Surgical History: noncontributory, - - Thyroid cyst surgery, rib removal, tonsillectomy, prior esophageal dilations. Smoking Status: Current every day smoker - Family History Maternal Family History: Family History (Last Reviewed 02/02/20 @ 03:[address] Musa Navarrete MD) Brother Alcoholism Father CVA (cerebral vascular accident) Family History: Reports: - - Patient states she does not know any of her maternal family history as her mother when she was 5 years old but she denies any history of heart disease, diabetes, cancer, unclear etiology for . Paternal Family History: Family History (Last Reviewed 02/02/20 @ 03:[address] Musa Navarrete MD) Brother Alcoholism Father CVA (cerebral vascular accident) Family History: Reports: Stroke Review of Systems General: Reports: - - Generalized weakness, falls. Denies: Chills, Fever, Sweats Eyes: Denies: Visual changes - bilaterally, Diplopia ENT: Denies: Rhinorrhea, Sore throat Cardiovascular: Denies: Chest pain, Palpitations Respiratory: Denies: Dyspnea, Cough, Dyspnea on exertion Gastrointestinal: Denies: Abdominal pain, Nausea, Vomiting, Diarrhea Genitourinary: Reports: Frequency. Denies: Dysuria, Hematuria Musculoskeletal: Reports: Back pain - Tailbone. Denies: Extremity Pain Skin: Denies: Rash, Wounds Neurological: Denies: Headache, Parasthesia, Numbness Psych: Denies: Suicidal thoughts, Suicidal ideations Physical Exam Vital Signs/Narrative: Vital Signs Temp Pulse Resp BP Pulse Ox 06/18/20 17:06 97.6 F L 78 20 H 69/54 L 98 Inital Vital Signs reviewed: Yes General: Well developed, Cachectic, No Acute Distress Head: Normocephalic, Atraumatic Eyes: Perrl, EOMI, - - Bilateral horizontal nystagmus ENT: No rhinorrhea, TM's clear, Dry mucous membranes Neck: Supple, Nontender, No JVD Cardiovascular: Regular rate, Regular rhythm, No murmurs Respiratory: No distress, CTA bilaterally, Chest nontender Abdomen: Soft, Nontender, Nondistended, Normal bowel sounds. Negative for: Guarding, Rebound tenderness Back: Nontender, Normal Inspection. Negative for: CVA tenderness, Spinal tenderness Extremities: Nontender, No edema Skin: Normal color, No rash Neurological: Alert, Cranial nerves II-XII grossly intact, Normal Strength, Normal Sensation, Disoriented Psychological: Normal affect, Normal Mood Diagnostic/Tx/Re-eval Clinical Impression(s) from Imaging Studies Brain CT 06/18/20 17:33 IMPRESSION: No acute intracranial or calvarial abnormality. There is no major interval change. Electronically Signed: Kenji Luz DO at 18:50 EST Tel [phone], Service support , Chest X-Ray 06/18/20 18:35 IMPRESSION: No acute cardiopulmonary disease or major interval change Electronically Signed: Kenji Luz DO at 18:53 EST Tel [phone], Service support , Laboratory Data 06/18/20 06/18/20 06/18/20 17:30 17:30 17:30 WBC RBC Hgb Hct MCV MCH MCHC RDW Std Deviation RDW Coeff of Richard Plt Count MPV Immature Gran % (Auto) Neut % (Auto) Lymph % (Auto) [place] % (Auto) Eos % (Auto) Baso % (Auto) Absolute Neuts (auto) Absolute Lymphs (auto) Nucleated RBC % Differential Comment PT INR APTT Sodium 135 L Potassium 3.6 Chloride 103 Carbon Dioxide 22.0 Anion Gap 10 BUN 25 H Creatinine 1.43 H Estim Creat Clear Calc 31.50 Est GFR (MDRD) Af Amer 48 L Est GFR (MDRD) Non-Af 40 L BUN/Creatinine Ratio 17.5 Glucose 84 Lactic Acid Calcium 7.7 L Total Bilirubin 0.30 AST 25 ALT 18 Alkaline Phosphatase 104 Troponin I < 0.015 Total Protein 7.0 Albumin 2.9 L Globulin 4.1 Albumin/Globulin Ratio 0.7 L Lipase 218 Urine Color Yellow Urine Clarity Clear Urine pH 5.0 Ur Specific [place] 1.010 Urine Protein Negative Urine Glucose (UA) Normal Urine Ketones Negative Urine Occult Blood Negative Urine Nitrite Negative Urine Bilirubin Negative Urine Urobilinogen Normal Ur Leukocyte Esterase Negative Urine RBC 0 SEEN Urine WBC 0 SEEN Ur Squamous Epith Cells 0-5 SEEN Urine Bacteria 0 SEEN Urine Mucus 0 SEEN Urine Opiates Screen NEGATIVE Urine Methadone Screen NEGATIVE Ur Barbiturates Screen NEGATIVE Ur Phencyclidine Scrn NEGATIVE Ur Amphetamines Screen NEGATIVE U Methamphetamin-MDMA NEGATIVE U Benzodiazepines Scrn NEGATIVE Urine Cocaine Screen NEGATIVE U Cannabinoids Screen NEGATIVE Ur Drug Screen Comment Ethyl Alcohol 06/18/20 06/18/20 06/18/20 18:05 18:05 18:20 WBC 9.9 RBC 3.92 L Hgb 12.8 Hct 36.7 L MCV 93.6 MCH 32.7 H MCHC 34.9 RDW Std Deviation 67.4 H RDW Coeff of Richard 19.8 H Plt Count 450 MPV 9.6 Immature Gran % (Auto) 0.500 Neut % (Auto) 66.8 Lymph % (Auto) 22.9 [place] % (Auto) 8.9 Eos % (Auto) 0.3 Baso % (Auto) 0.6 Absolute Neuts (auto) 6.6 Absolute Lymphs (auto) 2.26 Nucleated RBC % 0 Differential Comment SCANNED PT 11.8 INR 0.9 APTT 31.0 Sodium Potassium Chloride Carbon Dioxide Anion Gap BUN Creatinine Estim Creat Clear Calc Est GFR (MDRD) Af Amer Est GFR (MDRD) Non-Af BUN/Creatinine Ratio Glucose Lactic Acid Calcium Total Bilirubin AST ALT Alkaline Phosphatase Troponin I Total Protein Albumin Globulin Albumin/Globulin Ratio Lipase Urine Color Urine Clarity Urine pH Ur Specific [place] Urine Protein Urine Glucose (UA) Urine Ketones Urine Occult Blood Urine Nitrite Urine Bilirubin Urine Urobilinogen Ur Leukocyte Esterase Urine RBC Urine WBC Ur Squamous Epith Cells Urine Bacteria Urine Mucus Urine Opiates Screen Urine Methadone Screen Ur Barbiturates Screen Ur Phencyclidine Scrn Ur Amphetamines Screen U Methamphetamin-MDMA U Benzodiazepines Scrn Urine Cocaine Screen U Cannabinoids Screen Ur Drug Screen Comment Ethyl Alcohol 255.0 06/18/20 18:25 WBC RBC Hgb Hct MCV MCH MCHC RDW Std Deviation RDW Coeff of Richard Plt Count MPV Immature Gran % (Auto) Neut % (Auto) Lymph % (Auto) [place] % (Auto) Eos % (Auto) Baso % (Auto) Absolute Neuts (auto) Absolute Lymphs (auto) Nucleated RBC % Differential Comment PT INR APTT Sodium Potassium Chloride Carbon Dioxide Anion Gap BUN Creatinine Estim Creat Clear Calc Est GFR (MDRD) Af Amer Est GFR (MDRD) Non-Af BUN/Creatinine Ratio Glucose Lactic Acid 2.3 H* Calcium Total Bilirubin AST ALT Alkaline Phosphatase Troponin I Total Protein Albumin Globulin Albumin/Globulin Ratio Lipase Urine Color Urine Clarity Urine pH Ur Specific [place] Urine Protein Urine Glucose (UA) Urine Ketones Urine Occult Blood Urine Nitrite Urine Bilirubin Urine Urobilinogen Ur Leukocyte Esterase Urine RBC Urine WBC Ur Squamous Epith Cells Urine Bacteria Urine Mucus Urine Opiates Screen Urine Methadone Screen Ur Barbiturates Screen Ur Phencyclidine Scrn Ur Amphetamines Screen U Methamphetamin-MDMA U Benzodiazepines Scrn Urine Cocaine Screen U Cannabinoids Screen Ur Drug Screen Comment Ethyl Alcohol - Rhythm Strip Rhythm Strip: Sinus Rhythm Rate: 73 Ectopy: None - EKG Initial EKG Interpretation: Sinus Rhythm, - - Normal sinus rhythm at a rate of [address] segments LVH Prolonged QTC of 513 - Medical Decision Making Patient arrives to the ER for weakness and altered mental status. She has been having multiple falls. She is no obvious signs of trauma. Patient is clinically intoxicated. She drinks a large amount of alcohol daily which is her baseline. Patient is initially hypotensive. She appears dehydrated. She is given a liter of IV fluid and is fluid responsive with her blood pressure. Patient is ultimately given 2 L of fluid and started on maintenance at 100 cc an hour. She is found to have an DEANDRE and elevated lactate. No obvious source of infection. I suspect her elevated lactate DEANDRE is from dehydration. Patient initially was hesitant about admission to the hospital but eventually agrees. Patient stable for general medical floor at time of disposition. Mentation improves as patient zainab up. Blood pressure does stabilize in the ER. Patient does not have signs of alcohol withdrawal in the ER. ED Disposition - Plan for ED Patient: Disposition: Acute Care Hospital [facility] Diagnosis: Dehydration, DEANDRE (acute kidney injury), Elevated lactic acid level, EtOH dependence Referrals: Sha Mckay DO [Primary Care Provider] -
[2020-06-18 18:34] LABS: Absolute Lymphocyte Count 2.26 X10^3/uL (0.83-4.51); Absolute Neutrophil Count 6.6 X10^3/uL (2.0-7.7); Basophil# 0.06 X10^3/uL; Basophil% 0.6 % (0-1); Eosinophil# 0.03 X10^3/uL; Eosinophils% 0.3 % (0-5); Hematocrit 36.7 % (37-47); Hemoglobin 12.8 g/dL (12.0-15.0); Lymphocyte # 2.26 X10^3/ul (4.0); Lymphocyte % 22.9 % (19-41); Mean Corp Hgb Conc 34.9 g/dL (32-36); Mean Corpuscular Hgb 32.7 pg (27.0-32.0); Mean Corpuscular Volume 93.6 fL (81-99); Mean Platelet Vol. 9.6 fl (6.2-12.0); Monocyte# 0.88 X10^3/uL; Monocyte% 8.9 % (0-10); NRBC Flagged by Analyzer 0 % (0-5); Neutrophil # 6.61 X10^3/uL (2.7-7.7); Neutrophil % 66.8 % (47-70); POSITIVE MORPHOLOGY YES; Platelet Count 450 K/mm3 (150-450); RBC Distribution Width CV 19.8 % (11.6-14.6); RBC Distribution Width SD 67.4 fl (35.1-43.9); Red Blood Count 3.92 M/mm3 (4.2-5.4); White Blood Count 9.9 K/mm3 (4.4-11.0)
[2020-06-18 18:35] LABS: Differential Indicated SCAN CRITERIA MET
--- NOTE | 2020-06-18 18:35 | RAD_ITS ---
STUDY: X-RAY CHEST REASON FOR EXAM: Female, 60 years old. EtOH abuse. Multiple falls today TECHNIQUE: Single AP portable view of the chest. COMPARISON: 05/08/2020. FINDINGS: The lungs are clear and expanded. There is no demonstrated pleural abnormality. Normal size heart. Normal mediastinum and godfrey. Normal visualized pulmonary arteries. Normal visualized aortic arch and descending thoracic aorta. Normal visualized thoracic spine. Normal visualized ribs, clavicles, and shoulders. There is no demonstrated abnormality of the visualized soft tissue structures of the upper abdomen. RAD/Chest 1 View (Portable) IMPRESSION: No acute cardiopulmonary disease or major interval change Electronically Signed: Kenji Luz DO at 18:53 EST Tel [phone], Service support ,
[2020-06-18 18:45] LABS: International Normalized Ratio 0.9; Prothrombin Time (Protime)PT. 11.8 SECONDS (11.7-14.9)
[2020-06-18 19:02] LABS: Lactic Acid 2.3 mmol/L (0.4-1.9)
[2020-06-18 19:03] LABS: Amphetamine Urine VISTA NEGATIVE (<1000 ng/mL); Barbiturate Urine VISTA NEGATIVE (< 200 ng/mL); Benzodiazepine Urine VISTA NEGATIVE (< 200 ng/mL); Cocaine Urine VISTA NEGATIVE (< 300 ng/mL); Ecstacy Urine VISTA NEGATIVE (< 500 ng/mL); Methadone Urine VISTA NEGATIVE (< 300 ng/mL); PCP Urine VISTA NEGATIVE (< 25 ng/mL); THC Urine VISTA NEGATIVE (< 50 ng/mL); Vista UDS pH Range 5
[2020-06-18 19:04] LABS: Differential Comment SCANNED
[2020-06-18] MEDS: 0.9% Normal Saline 1,000 ML 999 ML IV (19:06)
[2020-06-18 19:08] LABS: Color, Urine Yellow (Yellow); Glucose, Dipstick Normal (Normal); Ketone-Dipstick Negative (Negative); Leukocyte Esterase-Dipstick Negative /ul (Negative); Nitrite-Dipstick Negative (Negative); Occult Blood-Urine Negative /ul (Negative); Protein-Dipstick Negative (Negative); Urine Bilirubin Dipstick Negative (Negative); Urine Clarity Clear (Clear); Urine Urobilinogen Normal (Normal)
[2020-06-18 19:15] LABS: Squamous Epithelial Cells - UA 0-5 SEEN /hpf (5-10)
--- NOTE | 2020-06-18 19:57 | CM.ED ---
SOCIAL WORK Informant: Dr. Samuel Reason for Consult: Resources Met with patient in room. Introduced role and reason for referral. Patient reports lives home with roommates and is normally independent. Patient follows with Dr. Mckay. Discussed use of alcohol. Patient voices no issues/concerns and denies need for resources. Nursing updated. Plan: Admit, patient denies any needs at this time Stephen Peterson, PLASTERING CONTRACTOR, WEIGHT YARDAGE CHECKER
--- NOTE | 2020-06-18 20:06 | ED.RN ---
PT WITH REDDENED COCCYX AREA. C/O BACK AND TAILBONE PAIN. DR. SALCEDO INFORMED.
--- NOTE | 2020-06-18 20:17 | CM.ED ---
SOCIAL WORK Discussed case with Dr. Samuel. Per Dr. Samuel, patient is refusing admission at this time. Dr. Samuel requesting HPOA be updated. Met with patient. Received permission to call niece/HPFlaca PALMER. Call to Flaca, no answer left message providing contact information. Stephen Peterson, CERAMICS INSTRUCTOR, COMPUTER HARDWARE TECHNICIAN
--- NOTE | 2020-06-18 20:51 | ED.RN ---
PT GIVES THIS RN PERMISSION TO SPEAK WITH SALOMON RANGEL, PT POA, ABOUT PT CARE.
[2020-06-18 22:29] LABS: Reflex Lactate? Y
[2020-06-18] MEDS: 0.9% Normal Saline 1,000 ML 100 ML IV (22:54)
--- NOTE | 2020-06-18 23:11 | HP.PCM_ITS ---
Problem List (1) DEANDRE (acute kidney injury) Status: Acute (2) Dehydration Status: Acute (3) Elevated lactic acid level Status: Acute (4) EtOH dependence Status: Chronic (5) Benign essential HTN Status: Chronic (6) Chronic alcoholic hepatitis Status: Chronic (7) Depression Status: Chronic Qualifiers: Depression Type: unspecified Qualified Code(s): F32.9 - Major depressive disorder, single episode, unspecified (8) Dysphagia Status: Chronic Qualifiers: Dysphagia type: unspecified Qualified Code(s): R13.10 - Dysphagia, un specified (9) Esophageal stricture Status: Chronic (10) Gastroesophageal reflux disease Status: Chronic Qualifiers: Esophagitis presence: esophagitis presence not specified Qualified Code(s): K21.9 - Gastro-esophageal reflux disease without esophagitis (11) HLD (hyperlipidemia) Status: Chronic Qualifiers: Hyperlipidemia type: unspecified Qualified Code(s): E78.5 - Hyperlipidemia, unspecified (12) History of CVA (cerebrovascular accident) Status: Chronic (13) Homelessness Status: Chronic (14) Hypokalemia Status: Chronic History of Present Illness Date of Admission: 06/18/20 Chief Complaint: Multiple Falls The patient is a 60 year old F with a significant history of degenerative joint disease of the back; hypertension; tobacco abuse and chronic alcohol abuse who presents emergency department with multiple falls in the past week. She attributes her fall to degenerative joint disease of her back. Also patient complains of diarrhea. Reportedly she was covered with stools when she came to emergency department and she had to be cleaned up. Patient is an alcoholic. Reportedly she drinks 3 to 6 cans of big cans of beer daily. Occasionally she drinks hard liquor. Patient is not interested in detoxification from alcohol. Past Medical History Past Medical History (Chronic Problems): Chronic Problems Homelessness (Chronic) Chronic alcoholic hepatitis (Chronic) Hypokalemia (Chronic) EtOH dependence (Chronic) Dysphagia (Chronic) Esophageal stricture (Chronic) History of CVA (cerebrovascular accident) (Chronic) HLD (hyperlipidemia) (Chronic) Gastroesophageal reflux disease (Chronic) Depression (Chronic) Benign essential HTN (Chronic) Allergies No Known Allergies Allergy (Verified 06/18/20 17:32) Home Medications: Ambulatory Orders Medication Instructions Recorded Aspirin [Aspirin, Baby] 81 mg PO DAILY@0800 02/02/20 Atorvastatin Calcium 20 mg PO QHS 02/02/20 Metoprolol Tartrate [Lopressor 50 mg PO BID 03/05/20 (beta angie)] Duloxetine HCl 60 mg PO DAILY 03/17/20 Ondansetron [Ondansetron Odt] 4 mg PO PRN PRN 03/17/20 traZODone [Desyrel] 50 mg PO QHS 03/17/20 Amlodipine [Norvasc] 5 mg PO DAILY 06/18/20 Famotidine 20 mg PO DAILY 06/18/20 Hydrochlorothiazide 12.5 mg PO DAILY 06/18/20 Lisinopril 20 mg PO DAILY 06/18/20 Melatonin 5 mg PO QHS 06/18/20 Potassium Chloride [K-Dur] 40 meq PO DAILY 06/18/20 Surgical History: tonsillectomy, - - Thyroid cyst surgery, rib removal, tonsillectomy, prior esophageal dilations. 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 Musa Navarrete MD) Brother Alcoholism Father CVA (cerebral vascular accident) History Items: - Paternal Family History: Family History (Last Reviewed 06/19/20 @ 01:[address] Musa Navarrete MD) Brother Alcoholism Father CVA (cerebral vascular accident) History Items: Stroke Review of Systems Constitutional: Denies: Chills, Fever, Weight Change HEENT: Denies: Head Aches, Sinus Congestion, Sinus Drainage Cardiovascular: Denies: Chest Pain, Palpitations Respiratory: Denies: Cough, Shortness of breath at rest, Sputum production Gastrointestinal: Reports: Diarrhea. Denies: Abdominal Pain, Nausea, Vomiting Genitourinary: Denies: Dysuria Musculoskeletal: Denies: Joint Pain, Joint Tenderness Skin: Denies: Rash, Wounds Neurological: Denies: Numbness, Tingling, Focal weakness Psychiatric: Denies: Anxiety, Depression, Homicidal Ideations, Suicidal Ideations Hematologic/ Lymphatic: Denies: Easy Bruising, Easy Bleeding VTE Information - Inpt Only VTE Present on Admission: No VTE Mechan Device Prophylaxis: None VTE Pharm Prophylaxis ordered?: Yes Patient Problems: Active and Suspected Problems Dehydration (Acute) DEANDRE (acute kidney injury) (Acute) Elevated lactic acid level (Acute) - Physical Exam Vitals/I&O's: Vital Signs Temp Pulse Resp BP Pulse Ox 97.9 F 95 14 115/81 H 97 06/18/20 22:55 06/18/20 22:55 06/18/20 22:55 06/18/20 22:55 06/18/20 22:55 Oxygen Delivery Method Room Air Weight: 47.1 kg Body Mass Index (BMI) 18.1 Intake and Output for Last 24 Hours 06/16/20 06/17/20 06/18/20 23:59 23:59 23:59 Intake Total Balance General: Alert, Oriented x3, Cooperative HEENT: Atraumatic, PERRLA, EOMI, Normocephalic Neck: Supple, No JVD, Negative Carotid Bruits Lungs: Clear to auscultation, Normal air movement Cardiovascular: Regular rate, Normal S1, Normal S2, No murmurs Abdomen: Bowel Sounds Present, Soft, Non Tender Extremities: No edema, Capillary Refill Less than 3 Seconds Skin: No rashes, No breakdown Musculoskeletal: No Tenderness to Palpation of Joints or Extremities, Cachexia Neurological: Cranial nerves II-XII grossly intact Psych/Mental Status: Normal Affect, Appropriate Laboratory Results 06/18/20 17:30: Sodium 135 L, Potassium 3.6, Chloride 103, Carbon Dioxide 22.0, Anion Gap 10, BUN 25 H, Creatinine 1.43 H, Estim Creat Clear Calc 31.50, Est GFR (MDRD) Af Amer 48 L, Est GFR (MDRD) Non-Af 40 L, BUN/Creatinine Ratio 17.5, Glucose 84, Calcium 7.7 L, Total Bilirubin 0.30, AST 25, ALT 18, Alkaline Phosphatase 104, Troponin I < 0.015, Total Protein 7.0, Albumin 2.9 L, Globulin 4.1, Albumin/Globulin Ratio 0.7 L, Lipase 218 06/18/20 17:30: Urine Color Yellow, Urine Clarity Clear, Urine pH 5.0, Ur Specific [place] 1.010, Urine Protein Negative, Urine Glucose (UA) Normal, Urine Ketones Negative, Urine Occult Blood Negative, Urine Nitrite Negative, Urine Bilirubin Negative, Urine Urobilinogen Normal, Ur Leukocyte Esterase Negative, Urine RBC 0 SEEN, Urine WBC 0 SEEN, Ur Squamous Epith Cells 0-5 SEEN, Urine Bacteria 0 SEEN, Urine Mucus 0 SEEN 06/18/20 17:30: Urine Opiates Screen NEGATIVE, Urine Methadone Screen NEGATIVE, Ur Barbiturates Screen NEGATIVE, Ur Phencyclidine Scrn NEGATIVE, Ur Amphetamines Screen NEGATIVE, U Methamphetamin-MDMA NEGATIVE, U Benzodiazepines Scrn NEGATIVE, Urine Cocaine Screen NEGATIVE, U Cannabinoids Screen NEGATIVE, Ur Drug Screen Comment 06/18/20 18:05: WBC 9.9, RBC 3.92 L, Hgb 12.8, Hct 36.7 L, MCV 93.6, MCH 32.7 H, MCHC 34.9, RDW Std Deviation 67.4 H, RDW Coeff of Richard 19.8 H, Plt Count 450, MPV 9.6, Immature Gran % (Auto) 0.500, Neut % (Auto) 66.8, Lymph % (Auto) 22.9, [place] % (Auto) 8.9, Eos % (Auto) 0.3, Baso % (Auto) 0.6, Absolute Neuts (auto) 6.6, Absolute Lymphs (auto) 2.26, Nucleated RBC % 0, Differential Comment SCANNED 06/18/20 18:05: PT 11.8, INR 0.9, APTT 31.0 06/18/20 18:20: Ethyl Alcohol 255.0 06/18/20 18:25: Lactic Acid 2.3 H* 06/18/20 22:40: Lactic Acid Pending Current Medications Sodium Chloride () 1,000 mls @ 100 mls/hr IV .Q10H LUIS Last Admin: 06/18/20 22:54 Dose: 100 mls/hr Documented by: Assessment/Plan All Active Problems Dehydration (Acute) DEANDRE (acute kidney injury) (Acute) Elevated lactic acid level (Acute) Dehydration and DEANDRE Creatinine is 1.43. Her baseline creatinine is less than 1. BUN is 25. BUN over creatinine is 17.5. Likely prerenal and entering into intrinsic renal. Likely from diarrhea;diuretic use and poor p.o. intake. Gentle IV hydration Urine electrolytes ordered. Avoid nephrotoxic's. Home lisinopril and thiazide held. Hypotension Likely secondary to dehydration. Hold home blood pressure medication Trend blood pressures. Lactic acidosis Likely from hypoperfusion secondary to dehydration. Trend. Alcohol dependence Placed on CIWA protocol. Thiamine folic acid and multivitamin ordered. Check magnesium. Diarrhea Supportive treatment with IV fluids. Multiple falls Could be due to alcohol intoxication or degenerative joint disease. Check vitamin B12 and vitamin D PT and OT to work with patient. Severe protein calorie malnutrition BMI of 17.2 Ensure Enlive ordered. Dietary consult. Tobacco abuse Counseled Nicotine patch prescribed. Seat hypocalcemia Calcium of 7.7 Likely secondary to low albumin of 2.9. No symptoms of hypocalcemia. DVT prophylaxis Subcutaneous heparin ordered. Inpatient E&M: 11775 Init Hosp L3
[2020-06-18 23:16] LABS: Lactic Acid 1.1 mmol/L (0.4-1.9)
[2020-06-18 23:43] LABS: Vitamin B12 244 pg/mL (211-911); Vitamin D,25 Hydroxy 7.5 ng/mL
[2020-06-18 23:46] LABS: Magnesium 2.6 mg/dL (1.6-2.6)
[2020-06-19] VITALS (11 sets, daily range): BP systolic 158–189; BP diastolic 96–129; PULSE 86–119; RESP 16–18; TEMP 36.9–37.1; O2SAT 97–100; BMI 17.2
[2020-06-19 03:54] LABS: Urea Nitrogen, Urine 329 mg/dL (NO RANGE EST.); Urine Sodium 80 mmol/L (Not Establ.)
--- NOTE | 2020-06-19 05:29 | PCM.PN.BLA ---
Progress Note Home blood pressure meds were held secondary to hypotension. Blood pressure is elevated. We will continue to hold home blood pressure and start patient on as needed hydralazine IV. If blood pressure remains elevated consider re-starting patient on home metoprolol. Patient is in DEANDRE and cannot re-start COLBY inhibitors or hydrochlorothiazide. STROKE Vital Signs/Narrative: Vital Signs Temp Pulse Resp BP Pulse Ox 06/19/20 05:05 98.7 F 91 18 164/100 H 98
[2020-06-19 06:03] LABS: Absolute Lymphocyte Count 1.67 X10^3/uL (0.83-4.51); Absolute Neutrophil Count 8.7 X10^3/uL (2.0-7.7); Basophil# 0.06 X10^3/uL; Basophil% 0.5 % (0-1); Eosinophil# 0.03 X10^3/uL; Eosinophils% 0.3 % (0-5); Hematocrit 35.3 % (37-47); Hemoglobin 11.6 g/dL (12.0-15.0); Lymphocyte # 1.67 X10^3/ul (4.0); Lymphocyte % 14.6 % (19-41); Mean Corp Hgb Conc 32.9 g/dL (32-36); Mean Corpuscular Hgb 30.6 pg (27.0-32.0); Mean Corpuscular Volume 93.1 fL (81-99); Mean Platelet Vol. 9.2 fl (6.2-12.0); Monocyte# 0.99 X10^3/uL; Monocyte% 8.6 % (0-10); NRBC Flagged by Analyzer 0 % (0-5); Neutrophil # 8.67 X10^3/uL (2.7-7.7); Neutrophil % 75.6 % (47-70); POSITIVE MORPHOLOGY YES; Platelet Count 337 K/mm3 (150-450); RBC Distribution Width CV 19.5 % (11.6-14.6); RBC Distribution Width SD 66.6 fl (35.1-43.9); Red Blood Count 3.79 M/mm3 (4.2-5.4); White Blood Count 11.5 K/mm3 (4.4-11.0)
[2020-06-19 06:19] LABS: Differential Indicated SCAN CRITERIA MET
[2020-06-19] MEDS: hydrALAZINE 20 MG/ML Vial 5 MG IV ×2 (06:26→15:11)
[2020-06-19 06:36] LABS: Anion Gap 7 (5-15); BUN 23 mg/dL (7-18); BUN/Creat Ratio 23.1 RATIO (10-20); Calcium,Total 7.1 mg/dL (8.5-10.1); Chloride 104 mmol/L (98-107); EST Glomerular Filtration Rate 61 mL/min (>60); Est Glom Filt Rate - Afr Amer 73 mL/min (>60); Estimated Creatinine Clearance 42.74 ml/min; Glucose 86 mg/dL (74-106); Potassium 3.2 mmol/L (3.5-5.1); Sodium Level 134 mmol/L (136-145)
[2020-06-19 06:47] LABS: Anisocytosis 1+; Differential Comment SCANNED; Platelet Estimate ADEQUATE (ADEQ)
[2020-06-19 06:48] LABS: Macrocytosis RARE; Microcytosis RARE
--- NOTE | 2020-06-19 07:42 | PCM.PN.HOSP ---
Patient Problems: Active and Suspected Problems Dehydration (Acute) DEANDRE (acute kidney injury) (Acute) Elevated lactic acid level (Acute) Reason for Visit: Follow-up on multiple falls/DEANDRE/dehydration Subjective: Patient was seen and examined. She has a headache, denies fever or chills. Rest of ROS is negative. Objective: Physical exam: General: Alert, Oriented x3, Cooperative HEENT: Atraumatic, PERRLA, EOMI, Normocephalic Neck: Supple, No JVD, Negative Carotid Bruits Lungs: Clear to auscultation, Normal air movement Cardiovascular: Regular rate, Normal S1, Normal S2, No murmurs Abdomen: Bowel Sounds Present, Soft, Non Tender Extremities: No edema, Capillary Refill Less than 3 Seconds Skin: No rashes, No breakdown Musculoskeletal: No Tenderness to Palpation of Joints or Extremities, Cachexia Neurological: Cranial nerves II-XII grossly intact Psych/Mental Status: Normal Affect, Appropriate Vitals/I&O's: Vital Signs Temp Pulse Resp BP Pulse Ox 98.7 F 88 18 168/96 H 98 06/19/20 05:05 06/19/20 06:26 06/19/20 05:05 06/19/20 06:26 06/19/20 05:05 Oxygen Delivery Method Room Air Weight: 44.7 kg Body Mass Index (BMI) 17.2 Intake and Output for Last 24 Hours 06/17/20 06/18/20 06/19/20 23:59 23:59 23:59 Intake Total 2101.2 / 2101.2 1000 / 1000 Output Total 400 / 400 Balance 2101.2 / 2101.2 600 / 600 Laboratory Results 06/18/20 17:30: Sodium 135 L, Potassium 3.6, Chloride 103, Carbon Dioxide 22.0, Anion Gap 10, BUN 25 H, Creatinine 1.43 H, Estim Creat Clear Calc 31.50, Est GFR (MDRD) Af Amer 48 L, Est GFR (MDRD) Non-Af 40 L, BUN/Creatinine Ratio 17.5, Glucose 84, Calcium 7.7 L, Total Bilirubin 0.30, AST 25, ALT 18, Alkaline Phosphatase 104, Troponin I < 0.015, Total Protein 7.0, Albumin 2.9 L, Globulin 4.1, Albumin/Globulin Ratio 0.7 L, Lipase 218 06/18/20 17:30: Urine Color Yellow, Urine Clarity Clear, Urine pH 5.0, Ur Specific [place] 1.010, Urine Protein Negative, Urine Glucose (UA) Normal, Urine Ketones Negative, Urine Occult Blood Negative, Urine Nitrite Negative, Urine Bilirubin Negative, Urine Urobilinogen Normal, Ur Leukocyte Esterase Negative, Urine RBC 0 SEEN, Urine WBC 0 SEEN, Ur Squamous Epith Cells 0-5 SEEN, Urine Bacteria 0 SEEN, Urine Mucus 0 SEEN 06/18/20 17:30: Urine Opiates Screen NEGATIVE, Urine Methadone Screen NEGATIVE, Ur Barbiturates Screen NEGATIVE, Ur Phencyclidine Scrn NEGATIVE, Ur Amphetamines Screen NEGATIVE, U Methamphetamin-MDMA NEGATIVE, U Benzodiazepines Scrn NEGATIVE, Urine Cocaine Screen NEGATIVE, U Cannabinoids Screen NEGATIVE, Ur Drug Screen Comment 06/18/20 17:30: Magnesium 2.6 06/18/20 17:30: Vitamin B12 244, Vitamin D 25-Hydroxy 7.5 06/18/20 18:05: WBC 9.9, RBC 3.92 L, Hgb 12.8, Hct 36.7 L, MCV 93.6, MCH 32.7 H, MCHC 34.9, RDW Std Deviation 67.4 H, RDW Coeff of Richard 19.8 H, Plt Count 450, MPV 9.6, Immature Gran % (Auto) 0.500, Neut % (Auto) 66.8, Lymph % (Auto) 22.9, [place] % (Auto) 8.9, Eos % (Auto) 0.3, Baso % (Auto) 0.6, Absolute Neuts (auto) 6.6, Absolute Lymphs (auto) 2.26, Nucleated RBC % 0, Differential Comment SCANNED 06/18/20 18:05: PT 11.8, INR 0.9, APTT 31.0 06/18/20 18:20: Ethyl Alcohol 255.0 06/18/20 18:25: Lactic Acid 2.3 H* 06/18/20 22:40: Lactic Acid 1.1 06/19/20 02:55: Ur Random Sodium 80, Urine Creatinine 54.20, Urine Urea Nitrogen 329 06/19/20 05:15: Sodium 134 L, Potassium 3.2 L, Chloride 104, Carbon Dioxide 23.0, Anion Gap 7, BUN 23 H, Creatinine 1.00, Estim Creat Clear Calc 42.74, Est GFR (MDRD) Af Amer 73, Est GFR (MDRD) Non-Af 61, BUN/Creatinine Ratio 23.1 H, Glucose 86, Calcium 7.1 L 06/19/20 05:15: WBC 11.5 H, RBC 3.79 L, Hgb 11.6 L, Hct 35.3 L, MCV 93.1, MCH 30.6, MCHC 32.9 D, RDW Std Deviation 66.6 H, RDW Coeff of Richard 19.5 H, Plt Count 337, MPV 9.2, Immature Gran % (Auto) 0.400, Neut % (Auto) 75.6 H, Lymph % (Auto) 14.6 L, [place] % (Auto) 8.6, Eos % (Auto) 0.3, Baso % (Auto) 0.5, Absolute Neuts (auto) 8.7 H, Absolute Lymphs (auto) 1.67, Nucleated RBC % 0, Differential Comment SCANNED, Platelet Estimate ADEQUATE, Anisocytosis 1+, Microcytosis RARE, Macrocytosis RARE Current Medications Acetaminophen (Acetaminophen 325 Mg Tablet) 650 mg PO Q6H PRN PRN PRN Reason: Pain Score 1-10/Temp > 100.7 F Aspirin (Aspirin 81 Mg Tab.Chew) 81 mg PO DAILY@0800 [facility] Atorvastatin Calcium (Atorvastatin Calcium 20 Mg Tablet) 20 mg PO QHS [facility] Duloxetine HCl (Duloxetine Hcl 60 Mg Capsule) 60 mg PO DAILY [facility] Enoxaparin Sodium (Enoxaparin 40 Mg/0.4 Ml Syringe) 40 mg SC DAILY [facility] Famotidine (Famotidine 20 Mg Tablet) 20 mg PO DAILY [facility] Folic Acid (Folic Acid 1 Mg Tablet) 1 mg PO DAILY@0800 [facility] Stop: 06/21/20 08:01 Hydralazine HCl (Hydralazine 20 Mg/Ml Vial) 5 mg IV Q4H PRN PRN PRN Reason: SBP > 160 OR DBP > 120 Last Admin: 06/19/20 06:26 Dose: 5 mg Documented by: Sodium Chloride () 1,000 mls @ 50 mls/hr IV .Q20H [facility] Last Admin: 06/19/20 07:30 Dose: Not Given Documented by: Influenza Virus Vaccine Quadrival (Influenza Vaccine (6mos+)/Pf 0.5 Ml Syringe) 0.5 ml IM .ONCE ONE Stop: 06/19/20 10:01 Lorazepam (Lorazepam 1 Mg Tablet) 2 mg PO Q2H PRN PRN; Protocol PRN Reason: CIWA score > 8 but <15 Lorazepam (Lorazepam 1 Mg Tablet) 2 mg PO UD PRN; Protocol PRN Reason: CIWA score >/=15. Lorazepam (Lorazepam 2 Mg/Ml Syringe) 2 mg IV Q2H PRN PRN; Protocol PRN Reason: CIWA score > 8 but <15 Lorazepam (Lorazepam 2 Mg/Ml Syringe) 2 mg IV UD PRN; Protocol PRN Reason: CIWA score >/=15. Melatonin (Melatonin 10 Mg Tablet) 5 mg PO QHS [facility] Multivitamins/Minerals (Multivitamins,Ther W-Minerals Tablet) 1 tablet PO DAILYCM [facility] Nicotine (Nicotine 14 Mg Patch) 14 mg TRANSDERM. DAILY [facility] Nutritional Formula (Lactose Free) (Ensure Enlive 120 Ml Liquid) 120 ml PO 4X/DAY [facility] Potassium Chloride (Potassium Chloride 20 Meq Tablet) 60 meq PO X1 ONE Stop: 06/19/20 07:41 Prochlorperazine Edisylate (Prochlorperazine 10 Mg/2 Ml Vial) 5 mg IV Q4H PRN PRN PRN Reason: Breakthrough nausea/vomiting Sodium Chloride (0.9% Saline Lock 10 Ml Syringe) 10 - 40 ml IV UD PRN PRN Reason: SALINE FLUSH Thiamine HCl (Thiamine Hydrochloride 100 Mg Tablet) 100 mg PO BIDCM [facility] Stop: 06/21/20 17:01 Trazodone HCl (Trazodone 50 Mg Tablet) 50 mg PO QHS [facility] STROKE Vital Signs/Narrative: Vital Signs Temp Pulse Resp BP Pulse Ox 06/19/20 06:26 88 168/96 H 06/19/20 05:05 98.7 F 91 18 164/100 H 98 Medical Necessity - Tobacco Use Smoking Status: Current every day smoker Tobacco Use: Cigarettes Assessment/Plan All Active Problems Dehydration (Acute) DEANDRE (acute kidney injury) (Acute) Elevated lactic acid level (Acute) 1. DEANDRE, pre-renal, secondary to dehydration, improving Cr improved to 1.0 from 1.43 Continue with IVF. Repeat blood work clive m 2. Hypotension, was taken off home meds, now hypertensive 3. Hypertension, uncontrolled, will resume on amlodipine and metoprolol Continue with hydralazine as needed 4. Hypokalemia, replace, recheck in a.m. 5. Lactic acidosis, likely related to dehydration, resolved 6. Alcohol dependence, stable, will monitor on withdrawal protocol 5. Severe protein-calorie malnutrition, on nutritional supplements 6. Nicotine dependence, on replacement 7. Multiple falls, secondary to alcohol intoxication/degenerative joint disease PT/OT to evaluate and treat 8. DVT PPx- Lovenox SC Inpatient E&M: 14379 Subs Hosp L2
[2020-06-19] MEDS: 0.9% Normal Saline 1,000 ML 50 ML IV (08:52)
[2020-06-19] MEDS: Famotidine 20 MG Tablet PO (08:57)
[2020-06-19] MEDS: Thiamine Hydrochloride 100 MG Tablet PO ×2 (08:57→16:04)
[2020-06-19] MEDS: Folic Acid 1 MG Tablet PO (08:57)
[2020-06-19] MEDS: Aspirin 81 MG TAB.CHEW PO (08:57)
[2020-06-19] MEDS: Multivitamins,Ther W-Minerals Tablet 1 TABLET PO (08:57)
[2020-06-19] MEDS: DULoxetine Hcl 60 MG Capsule PO (08:57)
[2020-06-19] MEDS: Enoxaparin 40 MG/0.4 ML Syringe SC (08:58)
[2020-06-19] MEDS: Acetaminophen 325 MG Tablet 650 MG PO (09:02)
[2020-06-19] MEDS: proCHLORPERazine 10 MG/2 ML Vial 5 MG IV (09:44)
[2020-06-19] MEDS: 0.9% Saline Lock 10 ML Syringe IV ×2 (09:45→18:07)
--- NOTE | 2020-06-19 09:50 | NURSING ---
Nausea reported to this nurse by student nurse, this nurse discussed the reported concern with patient who reported a small emesis in the bathroom garbage can. Vomiting was not actually observed. patient requested PRN medication to help with nausea. PRN compazine administered. This nurse discussed medication with patient and instructed patient if nausea was not improved to let nursing staff know. NOted that patient takes ondansetron ODT at home as needed for nausea.
--- NOTE | 2020-06-19 11:50 | CASEMGMT ---
RN CM Face to Face with patient for initial transition planning/care coordination assessment. RN CM introduced self and role at [facility]. Patient lying in bed, alert and oriented. Patient willing to participate in assessment and is able to answer all questions appropriately. Care providers, pharmacy, and demographics verified. Patient wishes to discharge home, denies need for home health at this time. Patient states she has no further needs or concerns at this time. CM to follow for discharge planning needs that may arise. PCP: Woody Specialists: none Preferred Pharmacy: [facility] Insurance: [employer] [facility] Prescription Benefit: yes Living Will/HPOA: yes, maria del carmen Rogers LNOK: niece, daughter Living Arrangements: Patient lives with niece in a mobile home. Patient states she is independent at home for self care. Transportation: niece DME/HHC: Patient states she has cane, walker, grab bars, and shower chair at home. Patient denies previous HHC. Disposition Plan: Patient to discharge home with family support and follow-up plans in place. Felicia PERKINS, RN, CM
--- NOTE | 2020-06-19 12:41 | PCM.NTREPORT ---
Nutrition Therapy Report - History Nutrition Services has been consulted to:: Manage nutrient details of diet order Current diet / nutrition support order:: Regular diet with ensure enlive 120 ml 4 x per day medpass - Anthropometric Measurements Height:: 5 ft 3.5 in Weight:: 44.7 kg Body Mass Index (BMI):: 17.2 - Relevant Labs Relevant Labs:: WBC 11.5 K/mm3 (4.4-11.0) H 06/19/20 05:15 RBC 3.79 M/mm3 (4.2-5.4) L 06/19/20 05:15 Hgb 11.6 g/dL (12.0-15.0) L 06/19/20 05:15 Hct 35.3 % (37-47) L 06/19/20 05:15 MCH 32.7 pg (27.0-32.0) H 06/18/20 18:05 RDW Std Deviation 66.6 fl (35.1-43.9) H 06/19/20 05:15 RDW Coeff of Richard 19.5 % (11.6-14.6) H 06/19/20 05:15 Neut % (Auto) 75.6 % (47-70) H 06/19/20 05:15 Lymph % (Auto) 14.6 % (19-41) L 06/19/20 05:15 Absolute Neuts (auto) 8.7 X10^3/uL (2.0-7.7) H 06/19/20 05:15 Sodium 134 mmol/L (136-145) L 06/19/20 05:15 Potassium 3.2 mmol/L (3.5-5.1) L 06/19/20 05:15 BUN 23 mg/dL (7-18) H 06/19/20 05:15 Creatinine 1.43 mg/dL (0.55-1.02) H 06/18/20 17:30 Est GFR (MDRD) Af Amer 48 mL/min (>60) L 06/18/20 17:30 Est GFR (MDRD) Non-Af 40 mL/min (>60) L 06/18/20 17:30 BUN/Creatinine Ratio 23.1 RATIO (10-20) H 06/19/20 05:15 Lactic Acid 2.3 mmol/L (0.4-1.9) H* 06/18/20 18:25 Calcium 7.1 mg/dL (8.5-10.1) L 06/19/20 05:15 Albumin 2.9 g/dL (3.2-5.0) L 06/18/20 17:30 Albumin/Globulin Ratio 0.7 RATIO (0.9-2.4) L 06/18/20 17:30 - Assessment Food / Nutrition-Related History:: 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 PO to be established--will provide ONS with meals in addition to ONS w/ medpass as ordered. Pt does have visible moderate to severe muscle/fat wasting in the face, neck, clavicle and upper body areas. Given reported poor intake and +NFPE, pt does meet criteria for moderate pro/corry malnutrition. Pt has a hx of dysphagia due to esophageal stricture. - Nutrition Diagnosis Problem / Etiology / Signs & Symptoms (PES):: Moderate pro/corry malnutrition in the context of social circumstance related to ETOH abuse as evidence by inadequate PO of nutrient-dense food items and +NFPE showing muscle/fat wasting in the face, clavicle and upper body. Evidence of Malnutrition Exists:: Yes Moderate PCM:: Social & Environmental circumstances - Nutrition Intervention Nutrition Prescription:: Estimated Nutrition Needs~[id number] kcal and ~50-60 gm protein for repletion. - Food / Nutrient Delivery Interventions Summary of nutrition intervention:: Continue regular diet with 120 ml ensure enlive 4 x daily on medpass to provide additional 700 kcal and 40 gm protein per day. Will also provide 240 ml ensure clear w/ breakfast (240 corry, 8 gm protein) and Magic Cup BID w/ lunch and dinner (580 corry, 18 gm protein). Nutrition support ordered as / adjusted to:: No TF/TPN ordered Nutrition education provided?: Yes - MNT Monitoring Further MNT monitoring and evaluation required?: Yes MNT Follow-up in:: 3-5 days
[2020-06-19] MEDS: amLODIPine 5 MG Tablet PO (16:03)
[2020-06-19] MEDS: Metoprolol Tartrate 50 MG Tablet PO ×2 (16:03→21:42)
[2020-06-19] MEDS: hydrALAZINE 20 MG/ML Vial 10 MG IV (18:07)
[2020-06-19] MEDS: MELATONIN 10 MG TABLET 5 MG PO (21:42)
[2020-06-19] MEDS: traZODone 50 MG Tablet PO (21:44)
[2020-06-19] MEDS: Atorvastatin Calcium 20 MG Tablet PO (21:44)
[2020-06-20 03:07] VITALS: BP 138/98; PULSE 75; RESP 18; TEMP 36.7; O2SAT 99
[2020-06-20 08:00] VITALS: BP 162/97; PULSE 98; RESP 12; TEMP 36.7; O2SAT 96
[2020-06-20 08:23] LABS: ALB/GLOB Ratio 0.9 RATIO (0.9-2.4); AST(SGOT) 14 U/L (15-37); Alanine Aminotransfer ALT/SGPT 13 U/L (13-56); Albumin, Serum 2.5 g/dL (3.2-5.0); Alkaline Phosphatase 80 U/L (45-117); Anion Gap 6 (5-15); BUN 19 mg/dL (7-18); BUN/Creat Ratio 27.3 RATIO (10-20); Calcium,Total 8.3 mg/dL (8.5-10.1); Chloride 108 mmol/L (98-107); EST Glomerular Filtration Rate 92 mL/min (>60); Est Glom Filt Rate - Afr Amer 111 mL/min (>60); Estimated Creatinine Clearance 61.06 ml/min; Globulin 2.9 g/dL (2.2-4.2); Glucose 86 mg/dL (74-106); Potassium 4.7 mmol/L (3.5-5.1); Protein, Total 5.4 g/dL (6.4-8.2); Sodium Level 135 mmol/L (136-145)
[2020-06-20 08:33] LABS: Absolute Lymphocyte Count 1.71 X10^3/uL (0.83-4.51); Absolute Neutrophil Count 5.5 X10^3/uL (2.0-7.7); Basophil# 0.03 X10^3/uL; Basophil% 0.4 % (0-1); Eosinophil# 0.06 X10^3/uL; Eosinophils% 0.7 % (0-5); Hematocrit 35.4 % (37-47); Hemoglobin 11.5 g/dL (12.0-15.0); Lymphocyte # 1.71 X10^3/ul (4.0); Lymphocyte % 21.3 % (19-41); Mean Corp Hgb Conc 32.5 g/dL (32-36); Mean Corpuscular Volume 95.4 fL (81-99); Mean Platelet Vol. 9.5 fl (6.2-12.0); Monocyte# 0.73 X10^3/uL; Monocyte% 9.1 % (0-10); NRBC Flagged by Analyzer 0 % (0-5); Neutrophil # 5.46 X10^3/uL (2.7-7.7); Neutrophil % 68.3 % (47-70); POSITIVE MORPHOLOGY YES; Platelet Count 287 K/mm3 (150-450); RBC Distribution Width CV 19.3 % (11.6-14.6); RBC Distribution Width SD 67.9 fl (35.1-43.9); Red Blood Count 3.71 M/mm3 (4.2-5.4)
[2020-06-20 08:34] LABS: Differential Indicated SCAN CRITERIA MET
[2020-06-20 08:37] VITALS: O2SAT 98
[2020-06-20 09:09] LABS: Anisocytosis 1+
[2020-06-20] MEDS: Aspirin 81 MG TAB.CHEW PO (10:30)
[2020-06-20] MEDS: Multivitamins,Ther W-Minerals Tablet 1 TABLET PO (10:31)
[2020-06-20] MEDS: Folic Acid 1 MG Tablet PO (10:31)
[2020-06-20] MEDS: Thiamine Hydrochloride 100 MG Tablet PO (10:32)
[2020-06-20] MEDS: DULoxetine Hcl 60 MG Capsule PO (10:33)
[2020-06-20] MEDS: Enoxaparin 40 MG/0.4 ML Syringe SC (10:35)
[2020-06-20] MEDS: Famotidine 20 MG Tablet PO (10:37)
[2020-06-20 10:39] VITALS: BP 162/97; PULSE 98
[2020-06-20] MEDS: Metoprolol Tartrate 50 MG Tablet PO (10:39)
[2020-06-20] MEDS: amLODIPine 5 MG Tablet PO ×2 (10:40→16:23)
[2020-06-20 12:16] VITALS: BP 158/106; PULSE 99; RESP 12; TEMP 36.8; O2SAT 99
[2020-06-20 15:25] VITALS: BP 165/98; PULSE 82; RESP 16; TEMP 36.9; O2SAT 100
--- NOTE | 2020-06-20 16:13 | DCINST_ITS ---
- Discharge Diagnoses Current Active Problems: Current Active and Chronic Problems Homelessness (Chronic) Chronic alcoholic hepatitis (Chronic) Dehydration (Acute) Hypokalemia (Chronic) DEANDRE (acute kidney injury) (Acute) Elevated lactic acid level (Acute) EtOH dependence (Chronic) Dysphagia (Chronic) Esophageal stricture (Chronic) History of CVA (cerebrovascular accident) (Chronic) HLD (hyperlipidemia) (Chronic) Gastroesophageal reflux disease (Chronic) Depression (Chronic) Benign essential HTN (Chronic) You will use the following diet at home:: Regular Your food should be the consistency of: Regular Your liquids should be the consistency of: Regular/Thin Discharge Activity: Return to Normal Activity Additional Instructions: You are strongly advised to avoid alcohol or use of any illicit drug. Avoid smoking. Take note of changes to your medications. Your lisinopril and hydrochlorothiazide have been held. Your amlodipine has being increased to 10 mg daily. Follow-up with your primary care doctor within a week for repeat kidney function tests to determine if your lisinopril and hydrochlorothiazide should be resumed. Continue to measure your blood pressure daily. Allergies/Adverse Reactions: Allergies No Known Allergies Allergy (Verified 06/18/20 17:32) Medications to take at Discharge Aspirin [Aspirin, Baby] 81 mg PO DAILY@0800 02/02/20 Atorvastatin Calcium 20 mg PO QHS 02/02/20 Metoprolol Tartrate [Lopressor (beta angie)] 50 mg PO BID 03/05/20 Duloxetine HCl 60 mg PO DAILY 03/17/20 Ondansetron [Ondansetron Odt] 4 mg PO PRN PRN 03/17/20 traZODone [Desyrel] 50 mg PO QHS 03/17/20 Famotidine 20 mg PO DAILY 06/18/20 Melatonin 5 mg PO QHS 06/18/20 Potassium Chloride [K-Dur] 40 meq PO DAILY 06/18/20 Acetaminophen [Tylenol Tablet] 650 mg PO Q6H PRN PRN tablet 06/20/20 Amlodipine [Norvasc] 10 mg PO DAILY 30 Days #30 tab 06/20/20 Multivitamins,Ther W-Minerals [Multivitamin With Minerals ([facility])] 1 tab PO DAILYCM 30 Days #30 tab 06/20/20 Thiamine Hydrochloride [Vitamin B1] 100 mg PO BIDCM 30 Days #30 tab 06/20/20 The following prescriptions were given: Multivitamins,Ther W-Minerals [Multivitamin With Minerals ([facility])] 1 tab PO DAILYCM 30 Days #30 tab Transmission Status: Pending to [facility] #30 Amlodipine [Norvasc] 10 mg PO DAILY 30 Days #30 tab Transmission Status: Pending to [facility] #30 Thiamine Hydrochloride [Vitamin B1] 100 mg PO BIDCM 30 Days #30 tab Transmission Status: Pending to [facility] #30 Primary Care Physician: Sha Mckay DO [Primary Care Provider] - Please follow up with your Primary Care Physician in: within 2 weeks Test Results: Test results from this visit will be discussed in further detail at your follow- up appointment, if applicable. Proposed Discharge Date: 06/20/20
--- NOTE | 2020-06-20 16:15 | DS.PCM_ITS ---
Discharge Date and Diagnosis - Problem List Patient Problems: Active and Suspected Problems Dehydration (Acute) DEANDRE (acute kidney injury) (Acute) Elevated lactic acid level (Acute) Date of Admission: 06/18/20 Date of Discharge: 06/20/20 - Primary Discharge Diagnosis Acute Problems: Active Problems DEANDRE, prerenal secondary to dehydration Hypertension, uncontrolled Hypotension, resolved Hypokalemia Hyponatremia, likely related to chronic alcohol use Lactic acidosis Alcohol dependence Severe protein calorie malnutrition Nicotine dependence Multiple falls Acute alcohol intoxication - Secondary Discharge Diagnosis Chronic Problems: Chronic Problems Homelessness (Chronic) Chronic alcoholic hepatitis (Chronic) Hypokalemia (Chronic) EtOH dependence (Chronic) Dysphagia (Chronic) Esophageal stricture (Chronic) History of CVA (cerebrovascular accident) (Chronic) HLD (hyperlipidemia) (Chronic) Gastroesophageal reflux disease (Chronic) Depression (Chronic) Benign essential HTN (Chronic) Hospital Course and Treatment Imaging Results: Clinical Impression(s) from Imaging Studies Brain CT 06/18/20 17:33 IMPRESSION: No acute intracranial or calvarial abnormality. There is no major interval change. Electronically Signed: Kenji Luz DO at 18:50 EST Tel [phone], Service support , Chest X-Ray 06/18/20 18:35 IMPRESSION: No acute cardiopulmonary disease or major interval change Electronically Signed: Kenji Luz DO at 18:53 EST Tel [phone], Service support , Operations: None Procedures: None Summary of Care Provided: The patient is a 60 year old F past medical history of degenerative joint disease, hypertension, nicotine dependence, chronic alcohol use disorder who presents with multiple fall and diarrhea. Patient was reportedly covered with stools when she came into the emergency department. Patient admitted to drinking 3 to 6 cans of beer daily as well as hard liquor. Creatinine was found to be elevated compared to previous. This was felt to be due to diuretic use as well as poor p.o. intake and diarrhea. Patient did not have any diarrheal stools during this hospital stay. She initially was transiently hypotensive, but her blood pressure improved with IV fluids and required aggressive treatment. She also had lactic acidosis secondary to hypoperfusion that improved. She was monitored on alcohol withdrawal protocol and was stable. Creatinine improved to baseline at the time of discharge. Lasix and lisinopril were still held at discharge. Her amlodipine was increased to 10 mg p.o. daily for persistent high blood pressure. Patient was advised to follow-up with her primary care doctor within a week for repeat blood work. She was counseled strongly to avoid drinking alcohol. He was seen by PT and OT will discharge home with family support. Patient Problems: Active and Suspected Problems Dehydration (Acute) DEANDRE (acute kidney injury) (Acute) Elevated lactic acid level (Acute) Subjective: On the day of discharge, patient was seen and examined. She feels much improved. Denied any dizziness or palpitation. She has had good urine output. Her kidney functions are also much improved. Objective: Physical exam: General: Alert, Oriented x3, Cooperative HEENT: Atraumatic, PERRLA, EOMI, Normocephalic Neck: Supple, No JVD, Negative Carotid Bruits Lungs: Clear to auscultation, Normal air movement Cardiovascular: Regular rate, Normal S1, Normal S2, No murmurs Abdomen: Bowel Sounds Present, Soft, Non Tender Extremities: No edema, Capillary Refill Less than 3 Seconds Skin: No rashes, No breakdown Musculoskeletal: No Tenderness to Palpation of Joints or Extremities, Cachexia Neurological: Cranial nerves II-XII grossly intact Psych/Mental Status: Normal Affect, Appropriate - Physical Exam Vitals/I&O's: Vital Signs Temp Pulse Resp BP Pulse Ox 98.5 F 82 16 165/98 H 100 06/20/20 15:25 06/20/20 15:25 06/20/20 15:25 06/20/20 15:25 06/20/20 15:25 Oxygen Delivery Method Room Air Weight: 44.7 kg Body Mass Index (BMI) 17.2 Intake and Output for Last 24 Hours 06/18/20 06/19/20 06/20/20 23:59 23:59 23:59 Intake Total 2101.2 / 2101.2 3356.67 / 3356.67 600 / 600 Output Total 1200 / 1200 1600 / 1600 Balance 2101.2 / 2101.2 2156.67 / 2156.67 -1000 / -1000 Laboratory Results 06/20/20 06:57: WBC Cancelled, Corrected WBC Cancelled, RBC Cancelled, Hgb Cancelled, Hct Cancelled, MCV Cancelled, MCH Cancelled, MCHC Cancelled, RDW Std Deviation Cancelled, RDW Coeff of Richard Cancelled, Plt Count Cancelled, MPV Cancelled, Immature Gran % (Auto) Cancelled, Neut % (Auto) Cancelled, Lymph % (Auto) Cancelled, [place] % (Auto) Cancelled, Eos % (Auto) Cancelled, Baso % (Auto) Cancelled, Absolute Neuts (auto) Cancelled, Absolute Lymphs (auto) Cancelled, T otal Counted Cancelled, Neutrophils % (Manual) Cancelled, Band Neutrophils % Cancelled, Lymphocytes % (Manual) Cancelled, Monocytes % (Manual) Cancelled, Eosinophils % (Manual) Cancelled, Basophils % (Manual) Cancelled, Metamyelocytes % Cancelled, Myelocytes % Cancelled, Promyelocytes % Cancelled, Blast Cells % Cancelled, Plasma Cell % (Manual) Cancelled, Other Cells % Cancelled, Nucleated RBC % Cancelled, Nucleated RBCs/100 WBC Cancelled, Differential Comment Cancelled, Diff Path Review Cancelled, Hypersegmented Neuts Cancelled, Atypical Lymphocytes Cancelled, Reactive Lymphocytes Cancelled, Smudge Cells Cancelled, Toxic Granulation Cancelled, Toxic Vacuolation Cancelled, Dohle Bodies Cancelled, Catarino Rods Cancelled, Platelet Estimate Cancelled, Plt Morphology Comment Cancelled, RBC Morphology Cancelled, Polychromasia Cancelled, Hypochromasia Cancelled, Poikilocytosis Cancelled, Basophilic Stippling Cancelled, Anisocytosis Cancelled, Microcytosis Cancelled, Macrocytosis Cancelled, Spherocytes Cancelled, Sickle Cells Cancelled, Target Cells Cancelled, Tear Drop Cells Cancelled, Ovalocytes Cancelled, Stomatocytes Cancelled, [place] Bodies Cancelled, [place] Cells Cancelled, Bite Cells Cancelled, Crenated Cell Cancelled, Acanthocytes (Spur) Cancelled, Rouleaux Cancelled, Schistocytes Cancelled 06/20/20 06:57: Sodium 135 L, Potassium 4.7, Chloride 108 H, Carbon Dioxide 21.0, Anion Gap 6, BUN 19 H, Creatinine 0.70, Estim Creat Clear Calc 61.06, Est GFR (MDRD) Af Amer 111, Est GFR (MDRD) Non-Af 92, BUN/Creatinine Ratio 27.3 H, Glucose 86, Calcium 8.3 L, Total Bilirubin 0.80, AST 14 L, ALT 13, Alkaline Phosphatase 80, Total Protein 5.4 L, Albumin 2.5 L, Globulin 2.9, Albumin/Globulin Ratio 0.9 06/20/20 08:24: WBC 8.0, RBC 3.71 L, Hgb 11.5 L, Hct 35.4 L, MCV 95.4, MCH 31.0, MCHC 32.5, RDW Std Deviation 67.9 H, RDW Coeff of Richard 19.3 H, Plt Count 287, MPV 9.5, Immature Gran % (Auto) 0.200, Neut % (Auto) 68.3, Lymph % (Auto) 21.3, [place] % (Auto) 9.1, Eos % (Auto) 0.7, Baso % (Auto) 0.4, Absolute Neuts (auto) 5.5, Absolute Lymphs (auto) 1.71, Nucleated RBC % 0, Anisocytosis 1+ Current Medications Acetaminophen (Acetaminophen 325 Mg Tablet) 650 mg PO Q6H PRN PRN PRN Reason: Pain Score 1-10/Temp > 100.7 F Last Admin: 06/19/20 09:02 Dose: 650 mg Documented by: Amlodipine Besylate (Amlodipine 5 Mg Tablet) 5 mg PO DAILY [facility] Last Admin: 06/20/20 10:40 Dose: 5 mg Documented by: Amlodipine Besylate (Amlodipine 5 Mg Tablet) 5 mg PO X1 ONE Stop: 06/20/20 16:13 Aspirin (Aspirin 81 Mg Tab.Chew) 81 mg PO DAILY@0800 [facility] Last Admin: 06/20/20 10:30 Dose: 81 mg Documented by: Atorvastatin Calcium (Atorvastatin Calcium 20 Mg Tablet) 20 mg PO QHS [facility] Last Admin: 06/19/20 21:44 Dose: 20 mg Documented by: Duloxetine HCl (Duloxetine Hcl 60 Mg Capsule) 60 mg PO DAILY [facility] Last Admin: 06/20/20 10:33 Dose: 60 mg Documented by: Enoxaparin Sodium (Enoxaparin 40 Mg/0.4 Ml Syringe) 40 mg SC DAILY [facility] Last Admin: 06/20/20 10:35 Dose: 40 mg Documented by: Famotidine (Famotidine 20 Mg Tablet) 20 mg PO DAILY [facility] Last Admin: 06/20/20 10:37 Dose: 20 mg Documented by: Folic Acid (Folic Acid 1 Mg Tablet) 1 mg PO DAILY@0800 [facility] Stop: 06/21/20 08:01 Last Admin: 06/20/20 10:31 Dose: 1 mg Documented by: Hydralazine HCl (Hydralazine 20 Mg/Ml Vial) 10 mg IV Q4H PRN PRN PRN Reason: SBP > 160 OR DBP > 120 Last Admin: 06/19/20 18:07 Dose: 10 mg Documented by: Lorazepam (Lorazepam 1 Mg Tablet) 2 mg PO Q2H PRN PRN; Protocol PRN Reason: CIWA score > 8 but <15 Lorazepam (Lorazepam 1 Mg Tablet) 2 mg PO UD PRN; Protocol PRN Reason: CIWA score >/=15. Lorazepam (Lorazepam 2 Mg/Ml Syringe) 2 mg IV Q2H PRN PRN; Protocol PRN Reason: CIWA score > 8 but <15 Lorazepam (Lorazepam 2 Mg/Ml Syringe) 2 mg IV UD PRN; Protocol PRN Reason: CIWA score >/=15. Melatonin (Melatonin 10 Mg Tablet) 5 mg PO QHS [facility] Last Admin: 06/19/20 21:42 Dose: 5 mg Documented by: Metoprolol Tartrate (Metoprolol Tartrate 50 Mg Tablet) 50 mg PO BID [facility] Last Admin: 06/20/20 10:39 Dose: 50 mg Documented by: Multivitamins/Minerals (Multivitamins,Ther W-Minerals Tablet) 1 tablet PO DAILYCM [facility] Last Admin: 06/20/20 10:31 Dose: 1 tablet Documented by: Nicotine (Nicotine 14 Mg Patch) 14 mg TRANSDERM. DAILY [facility] Last Admin: 06/20/20 10:33 Dose: Not Given Documented by: Nutritional Formula (Lactose Free) (Ensure Enlive 120 Ml Liquid) 120 ml PO 4X/DAY [facility] Last Admin: 06/20/20 12:53 Dose: Not Given Documented by: Prochlorperazine Edisylate (Prochlorperazine 10 Mg/2 Ml Vial) 5 mg IV Q4H PRN PRN PRN Reason: Breakthrough nausea/vomiting Last Admin: 06/19/20 09:44 Dose: 5 mg Documented by: Sodium Chloride (0.9% Saline Lock 10 Ml Syringe) 10 - 40 ml IV UD PRN PRN Reason: SALINE FLUSH Last Admin: 06/19/20 18:07 Dose: 10 ml Documented by: Thiamine HCl ([facility] 100 Mg Tablet) [facility] Stop: 06/21/20 17:01 Last Admin: 06/20/20 10:32 Dose: 100 mg Documented by: Trazodone HCl (Trazodone 50 Mg Tablet) 50 mg PO QHS [facility] Last Admin: 06/19/20 21:44 Dose: 50 mg Documented by: Discharge Diet: Low fat/ Low Cholesterol, 2000 mg Sodium Diet Discharge Activity: Return to Normal Activity Home Medications: Medications to take at Discharge Aspirin [Aspirin, Baby] 81 mg PO DAILY@0800 02/02/20 Atorvastatin Calcium 20 mg PO QHS 02/02/20 Metoprolol Tartrate [Lopressor (beta angie)] 50 mg PO BID 03/05/20 Duloxetine HCl 60 mg PO DAILY 03/17/20 Ondansetron [Ondansetron Odt] 4 mg PO PRN PRN 03/17/20 traZODone [Desyrel] 50 mg PO QHS 03/17/20 Famotidine 20 mg PO DAILY 06/18/20 Melatonin 5 mg PO QHS 06/18/20 Potassium Chloride [K-Dur] 40 meq PO DAILY 06/18/20 Acetaminophen [Tylenol Tablet] 650 mg PO Q6H PRN PRN tab 06/20/20 Amlodipine [Norvasc] 10 mg PO DAILY 30 Days #30 tab 06/20/20 Multivitamins,Ther W-Minerals [Multivitamin With Minerals ([facility])] 1 tab PO DAILYCM 30 Days #30 tab 06/20/20 Thiamine Hydrochloride [Vitamin B1] 100 mg PO BIDCM 30 Days #30 tab 06/20/20 Following Prescriptions Were Given to Patient: Multivitamins,Ther W-Minerals [Multivitamin With Minerals ([facility])] 1 tab PO DAILYCM 30 Days #30 tab Transmission Status: Received by [facility] #30 Amlodipine [Norvasc] 10 mg PO DAILY 30 Days #30 tab Transmission Status: Received by [facility] #30 Thiamine Hydrochloride [Vitamin B1] 100 mg PO BIDCM 30 Days #30 tab Transmission Status: Received by [facility]30 Primary Care Physician: Sha Mckay DO [Primary Care Provider] - Please follow up with your Primary Care Physician in: within 2 weeks Disposition: Home Minutes spent on discharge:: 40 Patient Condition:: Stable Medical Necessity - Tobacco Use Smoking Status: Current every day smoker Tobacco Use: Cigarettes Meaningful Use Info Meaningful Use Diagnoses (Choose all that apply): None applicable Inpatient E&M: 36174 Disch Hosp
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
== END 2020-06-20 16:37 | disposition home or self-care (01) | DRG 682 ==
LOC: ED 22:47 → MS3 23:05
PROVIDERS: Admitting Provider Hospitalist; Emergency Provider Emergency Medicine; PCP Student in an Organized Health Care Education/Training Program; Visit Provider Internal Medicine
DX: N17.9 Acute kidney failure, unspecified (principal); E43 Unspecified severe protein-calorie malnutrition; E87.2 Acidosis; E87.1 Hypo-osmolality and hyponatremia; Z68.1 Body mass index [BMI] 19.9 or less, adult; I95.9 Hypotension, unspecified; E87.6 Hypokalemia; E83.51 Hypocalcemia; K70.10 Alcoholic hepatitis without ascites; E86.0 Dehydration; F10.229 Alcohol dependence with intoxication, unspecified; I10 Essential (primary) hypertension; E78.5 Hyperlipidemia, unspecified; R13.10 Dysphagia, unspecified; K22.2 Esophageal obstruction; K21.9 Gastro-esophageal reflux disease without esophagitis; R19.7 Diarrhea, unspecified; R29.6 Repeated falls; F32.9 Major depressive disorder, single episode, unspecified; F41.9 Anxiety disorder, unspecified; F17.210 Nicotine dependence, cigarettes, uncomplicated; Z23 Encounter for immunization; Z59.0 Homelessness; Z79.82 Long term (current) use of aspirin; Z79.899 Other long term (current) drug therapy; Z86.73 Personal history of transient ischemic attack (TIA), and cerebral infarction without residual deficits
CPT/HCPCS: 36415; 70450; 71045; 80048; 80053; 80307; 80320; 81001; 82306; 82570; 82607; 83605; 83690; 83735; 84300; 84484; 84540; 85025; 85610; 85730; 93005; 97161; 97165; 97802; 99285; G0008; J7030; 90686; A4216; G0480; J3490

== ENCOUNTER → 2020-07-09 09:35 | Outpatient (CLI) | payer MEDICARE, MEDICAID, SELFPAY ==
[2020-06-19 12:47] VITALS: BMI 17.2
--- NOTE | 2020-07-09 09:38 | CDU_ITS ---
Reason For Study: Carotid calcification Rt. Velocities/BP Lt. Velocities/BP Prox CCA 78.6/23.9 cm/sec. Prox CCA 66.2/22.3 cm/sec. Mid CCA 65.6/23.9 cm/sec. Mid CCA 55.2/17.9 cm/sec. Dist CCA 54.2/20.1 cm/sec. Dist CCA 56.3/25.6 cm/sec. Prox ICA 35.2/10.7 cm/sec. Prox ICA 44.3/16.8 cm/sec. Mid ICA 67.4/30.5 cm/sec. Mid ICA 61.8/30 cm/sec. Dist ICA 69.3/27.9 cm/sec. Dist ICA 96.7/35.6 cm/sec. Rt. ICA/CCA = 1.1. Lt. ICA/CCA = 1.7. Prox ECA 214.4/65.6 cm/sec. Prox ECA 69.5/22.3 cm/sec. Rt. Vert. 56.4/22.3 cm/sec. Lt. Vert. 39/12.6 cm/sec. Right Extracranial There is homogeneous, smooth atherosclerotic plaque noted in the right common carotid artery. There is heterogeneous, irregular atherosclerotic plaque noted in the right internal carotid artery. Right ICA distal is tortuous. There is heterogeneous, irregular atherosclerotic plaque noted in the right external carotid artery. Antegrade flow is noted in the right vertebral artery. Left Extracranial There is homogeneous, smooth atherosclerotic plaque noted in the left common carotid artery. There is heterogeneous, irregular atherosclerotic plaque noted in the left internal carotid artery. Left ICA distal is tortuous. There is heterogeneous, irregular atherosclerotic plaque noted in the left external carotid artery. Antegrade flow is noted in the left vertebral artery. Procedure Carotid Duplex 64064. This is a Carotid Duplex examination using B-mode, color flow and specral Doppler. Exam performed in department. Interpretation Summary Mild (<50%) stenosis right extracranial internal carotid. Mild (<50%) stenosis left extracranial internal carotid. Flow within the vertebral arteries is antegrade bilaterally. Elevated velocities in the right external carotid artery are suggestive of stenosis >50%. Ordering Physician: Sha Mckay Referring Physician: Sha Mckay Performed By: Felicia Eddy RVT
== END ==
PROVIDERS: PCP Student in an Organized Health Care Education/Training Program; Referring Provider Student in an Organized Health Care Education/Training Program; Visit Provider Student in an Organized Health Care Education/Training Program
DX: I65.23 Occlusion and stenosis of bilateral carotid arteries (principal)
CPT/HCPCS: 93880

== ENCOUNTER 2021-05-01 12:55 | Inpatient (IN) | payer MEDICARE, MEDICAID, SELFPAY ==
[2021-05-01] VITALS (7 sets, daily range): BP systolic 104–185; BP diastolic 79–143; PULSE 93–110; RESP 14–24; TEMP 36.6–37.1; O2SAT 100; BMI 18.0; BMI 13.6
--- NOTE | 2021-05-01 15:41 | EKG12_ITS ---
Test Reason : WEAKNESS Blood Pressure : / mmHG Vent. Rate : 098 BPM Atrial Rate : 098 BPM P-R Int : 132 ms QRS Dur : 082 ms QT Int : 384 ms P-R-T Axes : 062 070 265 degrees QTc Int : 490 ms Normal sinus rhythm Biatrial enlargement Left ventricular hypertrophy Prolonged QT Nonspecific ST and T wave abnormality Abnormal ECG Confirmed by ASHUTOSH SAHU, PERRI ([id number]), tape editor RODDY MCCLURE ([id number]) on 05/04/2021 11:38:18 AM Referred By: MAGDIEL Confirmed By:PERRI BOYKIN MD
--- NOTE | 2021-05-01 15:42 | EX.ED.DYSGE1 ---
HPI History of Present Illness Chief Complaint: Weakness Detail of Chief Complaint: Generalized weakness, poor p.o. intake Informant: patient and family Onset/Context/Timing Onset: Days (Possibly weeks patient is not a good informant) Context: Gradual Onset Timing: Continuous Quality: Generalized weakness Location: Generalized Current Severity: Patient responded I do not feel well Worsened by: Nothing Relieved by: Nothing Associated Symptoms Associated Symptoms: Discoloration of digits Narrative Narrative: Patient is a 60-year-old woman who looks much older than reported age. She has history of alcoholic hepatitis, alcohol dependency, esophageal strictures, CVA, hypertension, depression and essential hypertension. Patient states she is eating. Family member states she has not. Patient does endorse weight loss and her close being loose around her. She denies dark-colored urine. She denies light-colored stool. She denies diarrhea. Denies blood or mucus in her stool. [place] black or maroon-colored stool. She denies fever or chills. She denies headache. She denies visual, ocular auditory symptoms. She denies chest pain. She does endorse mild shortness of breath and cough, which are chronic. She is a smoker. She has smoked since she was a teenager. She presently smokes 1/2 pack/day. 5 years ago she smoked 1 to 2 packs/day. She denies history of COPD. Prior similar symptoms: Yes (Per family member and due to poor p.o. intake/malnutrition) Recent Illness/Hospitalization: No PFSH PFSH Home Medications NK 05/01/21 [History Last Taken Unknown] Allergy/AdvReac Type Severity Reaction Status Date / Time No Known Allergies Allergy Verified 05/01/21 12:57 Family History Brother Alcoholism Father CVA (cerebral vascular accident) Social History (Updated 05/01/21 @ 15:[address] Gianluca Berry MD) household members: none Smoking Status: Current every day smoker tobacco type: cigarettes alcohol intake: current alcohol intake frequency: 3 or more drinks per day substance use type: does not use ROS ROS ED Constitutional Constitutional ED: Reports weight loss; Denies chills, fever(s), subjective or sweats Eyes Eyes: Denies blurry vision, change in vision or diplopia ENT ENT ED: Denies ear pain, rhinorrhea or sore throat Cardiovascular Cardiovascular: Denies chest pain, orthopnea, palpitations or paroxysmal nocturnal dyspnea Respiratory/Chest Respiratory/Chest: Reports cough, dyspnea and dyspnea on exertion; Denies orthopnea, paroxysmal nocturnal dyspnea or sputum Gastrointestinal Gastrointestinal: Reports abdominal pain, diarrhea, nausea and vomiting Genitourinary Genitourinary ED: Reports dysuria, hematuria and urinary frequency Musculoskeletal Musculoskeletal: Reports arthralgias, back pain, myalgias and neck pain Integumentary Reports rash Neurologic Neurologic: Reports weakness; Denies headache(s) or paresthesias Psychiatric Psychiatric: Reports depression; Denies suicidal thoughts Hematologic/Lymphatic Hematologic/Lymphatic: Reports other Details: Denies bruising easily or problems with bleeding. Allergic/Immunologic Allergic/Immunologic ED: Denies mouth swelling or urticaria EXAM Physical Exam Const Vital Signs: 05/01/21 12:57 05/01/21 17:28 05/01/21 17:36 Temperature 98.7 F Temperature Source Temporal Pulse Rate 110 H 97 Respiratory Rate 14 24 H Respiratory Effort Normal Non-Labored Respiratory Pattern Normal Blood Pressure 118/93 H 185/143 H Blood Pressure Mean 101 157 Pulse Ox 100 100 Oxygen Delivery Method Room Air 05/01/21 18:34 Temperature Temperature Source Pulse Rate 98 Respiratory Rate Respiratory Effort Respiratory Pattern Blood Pressure 178/141 H Blood Pressure Mean 153 Pulse Ox 100 Oxygen Delivery Method Room Air Positive well developed, cachectic and unkempt General Appearance ED: unkempt, well developed, cachectic, cyanotic and other Patient has acrocyanosis, there is mottling, extremities are cool. Nutritional Appearance: cachectic HEENT Reports TM's clear and dry mucous membranes HEENT Narrative: Head is atraumatic normocephalic. Ears normal. Nares patent. Posterior pharynx exudate. Negative for trauma or tenderness Tympanic Membrane ED: Yes TM's clear Mouth ED: Yes dry mucous membranes Mouth: dry mucous membranes Eyes PERRL and EOMs intact bilaterally General Eye ED: Negative for pale conjunctiva or scleral icterus Neck no lymphadenopathy, supple and no JVD Resp normal respiratory effort and No clear to auscultation bilaterally Effort and Inspection: Negative for retractions Auscultation: rales bilateral base and diminished lung sounds; Negative for rhonchi or wheezes Cardio regular rate, regular rhythm, S1 normal heart sound, S2 normal heart sound and no murmurs GI normal to inspection, nondistended, normoactive bowel sounds, non-tender and non-distended Palpation: soft Back/Spine no CVA tenderness Cervical Spine: Negative for cervical spine tenderness Thoracic Spine / Upper Back: Negative for thoracic spinal tenderness or paraspinal muscle tenderness Extremity normal to inspection Extremity Narrative: Acrocyanosis, General Extremety ED: Negative for edema or tenderness General Extremity: Negative for edema Psych Appearance: unkempt MDM MDM MDM Narrative Medical decision making narrative: Patient appears cachectic. This may be due to poor nutrition however with her having mottling and acrocyanosis need to rule out pulmonary etiology, metabolic, infectious causes as well. Work-up was initiated. Patient does not urinate in spite of fluid bolus. Will call hospitalist for admission for failure to thrive, hyponatremia, hypertension Lab Data Attestation: I reviewed the patient's lab results. Lab results narrative: White count is slightly elevated and nondiagnostic. Labs: Laboratory Results - last 24 hr 05/01/21 05/01/21 05/01/21 15:50 15:50 15:50 WBC 11.3 H RBC 4.71 Hgb 14.5 Hct 41.6 MCV 88.3 MCH 30.8 MCHC 34.9 RDW Std Deviation 41.8 RDW Coeff of Richard 13.0 Plt Count 268 MPV 10.9 Immature Gran % (Auto) 0.300 Neut % (Auto) 72.1 H Lymph % (Auto) 19.1 [place] % (Auto) 8.0 Eos % (Auto) 0.1 Baso % (Auto) 0.4 Absolute Neuts (auto) 8.2 H Absolute Lymphs (auto) 2.16 Nucleated RBC % 0 PT 12.5 INR 1.0 Sodium 128 L Potassium 3.5 Chloride 86 L Carbon Dioxide 29.0 Anion Gap 13 BUN 19 H Creatinine 0.91 Estim Creat Clear Calc 50.05 Est GFR (MDRD) Af Amer 81 Est GFR (MDRD) Non-Af 67 BUN/Creatinine Ratio 20.8 H Glucose 106 Lactic Acid Calcium 9.3 Total Bilirubin 1.40 H AST 28 ALT 11 L Alkaline Phosphatase 71 Total Protein 7.0 Albumin 2.9 L Globulin 4.1 Albumin/Globulin Ratio 0.7 L Lipase 59 L Ethyl Alcohol 05/01/21 05/01/21 05/01/21 15:50 17:15 17:15 WBC RBC Hgb Hct MCV MCH MCHC RDW Std Deviation RDW Coeff of Richard Plt Count MPV Immature Gran % (Auto) Neut % (Auto) Lymph % (Auto) [place] % (Auto) Eos % (Auto) Baso % (Auto) Absolute Neuts (auto) Absolute Lymphs (auto) Nucleated RBC % PT INR Sodium Potassium Chloride Carbon Dioxide Anion Gap BUN Creatinine Estim Creat Clear Calc Est GFR (MDRD) Af Amer Est GFR (MDRD) Non-Af BUN/Creatinine Ratio Glucose Lactic Acid Cancelled 1.5 Calcium Total Bilirubin AST ALT Alkaline Phosphatase Total Protein Albumin Globulin Albumin/Globulin Ratio Lipase Ethyl Alcohol 7.0 Radiography Chest X-Ray - ED: 1 View, Read by ED Physician (Single view portable chest x-ray reveals hyperaeration. Cardiac silhouette size normal. Mediastinum is normal. Osseous structures are unremarkable.), Normal, Heart, Mediastinum, Bony Structures, No Acute Disease and Chronic Changes Diagnostic Testing: Radiology Impression Chest X-Ray 05/01/21 16:43 IMPRESSION: Normal x-ray examination of the chest. Electronically Signed: Gerber Peraza MD at 17:07 EDT Tel , Service support , Discharge Plan Dx/Rx/DC Orders Clinical Impression: Adult failure to thrive, Abnormal weight loss, Hyponatremia, Accelerated essential hypertension Disposition Disposition: Acute Care [facility]
[2021-05-01 16:03] LABS: Absolute Lymphocyte Count 2.16 X10^3/uL (0.83-4.51); Absolute Neutrophil Count 8.2 X10^3/uL (2.0-7.7); Basophil# 0.05 X10^3/uL; Basophil% 0.4 % (0-1); Eosinophil# 0.01 X10^3/uL; Eosinophils% 0.1 % (0-5); Hematocrit 41.6 % (37-47); Hemoglobin 14.5 g/dL (12.0-15.0); Lymphocyte # 2.16 X10^3/ul (0.83-4.51); Lymphocyte % 19.1 % (19-41); Mean Corp Hgb Conc 34.9 g/dL (32-36); Mean Corpuscular Hgb 30.8 pg (27.0-32.0); Mean Corpuscular Volume 88.3 fL (81-99); Mean Platelet Vol. 10.9 fl (6.2-12.0); NRBC Flagged by Analyzer 0 % (0-5); Neutrophil # 8.16 X10^3/uL (2.7-7.7); Neutrophil % 72.1 % (47-70); Platelet Count 268 K/mm3 (150-450); RBC Distribution Width SD 41.8 fl (35.1-43.9); Red Blood Count 4.71 M/mm3 (4.2-5.4); White Blood Count 11.3 K/mm3 (4.4-11.0)
[2021-05-01 16:16] LABS: Prothrombin Time (Protime)PT. 12.5 SECONDS (11.7-14.9)
[2021-05-01 16:26] LABS: ALB/GLOB Ratio 0.7 RATIO (0.9-2.4); AST(SGOT) 28 U/L (15-37); Alanine Aminotransfer ALT/SGPT 11 U/L (13-56); Albumin, Serum 2.9 g/dL (3.2-5.0); Alkaline Phosphatase 71 U/L (45-117); Anion Gap 13 (5-15); BUN 19 mg/dL (7-18); BUN/Creat Ratio 20.8 RATIO (10-20); Calcium,Total 9.3 mg/dL (8.5-10.1); Chloride 86 mmol/L (98-107); Creatinine, Serum 0.91 mg/dL (0.55-1.02); EST Glomerular Filtration Rate 67 mL/min (>60); Est Glom Filt Rate - Afr Amer 81 mL/min (>60); Estimated Creatinine Clearance 50.05 ml/min; Globulin 4.1 g/dL (2.2-4.2); Glucose 106 mg/dL (74-106); Lipase 59 U/L (73-393); Potassium 3.5 mmol/L (3.5-5.1); Sodium Level 128 mmol/L (136-145)
--- NOTE | 2021-05-01 16:43 | RAD_ITS ---
STUDY: X-RAY CHEST REASON FOR EXAM: Female, 60 years old. cough TECHNIQUE: Single AP portable view of the chest. COMPARISON: 06/18/2020 FINDINGS: The lungs are clear and expanded. There is no demonstrated pleural abnormality. Normal size heart. Normal mediastinum and godfrey. Normal visualized pulmonary arteries. Normal visualized aortic arch and descending thoracic aorta. Normal visualized thoracic spine. Normal visualized ribs, clavicles, and shoulders. There is no demonstrated abnormality of the visualized soft tissue structures of the upper abdomen. RAD/Chest 1 View (Portable) IMPRESSION: Normal x-ray examination of the chest. Electronically Signed: Gerber Peraza MD at 17:07 EDT Tel , Service support ,
--- NOTE | 2021-05-01 17:37 | ED.RN ---
Pt. from Home Lives with a friend. Pt. health has declined over the last six months according to family member, who is also POA for healthcare. Pt. appears to have failure to thrive. Is not eating and has been vomiting. Pt. fontenot not been taking medication for the last six months.
[2021-05-01 17:53] LABS: Lactic Acid 1.5 mmol/L (0.4-1.9)
[2021-05-01] MEDS: Enalaprilat 1.25 MG/ML Vial IV (18:40)
--- NOTE | 2021-05-01 19:46 | PCM.HP.STD ---
HPI - General HPI Narrative DEYA PUGA, is a 60 F with history of chronic alcohol use was brought in by EMS for unable to keep food down or fluid. Patient is chronic alcohol use and drinks half bottle of liquor, whiskey every single day, last drink was 4 days ago. She feels very generalized weak, states her legs not able to hold up for walking, looks emaciated, very dehydrated. She also lost about 25 pounds in last 5 months as per her niece who is power of family law attorney for health, sitting near the bedside Patient has history of esophageal stricture and had last dilatation which she does not remember. She states whenever she tries to eat she vomits after half an hour. Currently patient is not having shakings but has poor memory and cannot remember time, month or year but remembers the place. [facility] Home Medications NK 05/01/21 [History Last Taken Unknown] Allergy/AdvReac Type Severity Reaction Status Date / Time No Known Allergies Allergy Verified 05/01/21 12:57 Family History Brother Alcoholism Father CVA (cerebral vascular accident) Social History household members: none Smoking Status: Current every day smoker tobacco type: cigarettes alcohol intake: current alcohol intake frequency: 3 or more drinks per day substance use type: does not use ROS ROS Narrative Constitutional: Reports fatigue and weakness. Loss of weight. Very dehydrated HEENT: Reports systems reviewed and no addt'l complaints, except as documented Respiratory/Chest: Denies chest pain, shortness of breath at rest or with exertion Gastrointestinal: As mentioned in HPI. Chronic constipation. Denies GI bleed Genitourinary: Denies burning urination or new urinary tract symptoms Musculoskeletal: Weakness of leg muscles, generalized weakness. Poor gait Neurologic: Denies seizure-like activity skin: No ulcer. No rash Endocrinology: Reports systems reviewed and no addt'l complaints, except as documented Hematologic/Lymphatic: Reports systems reviewed and no addt'l complaints, except as documented Rest 12 ROS are negative except as mentioned in HPI Vital Signs Vital Signs Vital Signs: 05/01/21 12:57 05/01/21 17:28 05/01/21 17:36 Temperature 98.7 F Temperature Source Temporal Pulse Rate 110 H 97 Respiratory Rate 14 24 H Respiratory Effort Normal Non-Labored Respiratory Pattern Normal Blood Pressure 118/93 H 185/143 H Blood Pressure Mean 101 157 Pulse Ox 100 100 Oxygen Delivery Method Room Air 05/01/21 18:34 05/01/21 19:05 05/01/21 19:29 Temperature 98.7 F Temperature Source Temporal Pulse Rate 98 93 96 Respiratory Rate 18 15 Respiratory Effort Respiratory Pattern Blood Pressure 178/141 H 149/117 H 121/107 H Blood Pressure Mean 153 127 111 Pulse Ox 100 100 100 Oxygen Delivery Method Room Air Room Air Room Air Weight Weight: 105 lb Body Mass Index (BMI) 18.0 Physical Exam Narrative General: Awake, lethargic, oriented x2. Emaciated, BMI 18.0 kg/m? HEENT: Atraumatic, PERRLA, EOMI, Normocephalic Oral: Very dehydrated no Gingival or Mucosal Lesions/ Ulcerations Neck: Supple, No JVD, Negative Carotid Bruits Lungs: Air entry diminished in bilateral lung bases. No crepitation/rhonchi Cardiovascular: Regular rate, Regular Rhythm, Normal S1, Normal S2, No murmurs Abdomen: Bowel Sounds Present, Soft, Non Tender, Non-Distended : No renal angle tenderness. No suprapubic tenderness. Extremities: No edema, Capillary Refill Less than 3 Seconds Skin: No rashes, No breakdown Musculoskeletal: Loss of muscle bulk in all 4 extremities, subclavicular and paravertebral muscles. Loss of subcutaneous fat. No Tenderness to Palpation of Joints or Extremities Neurological: Cranial nerves II-XII grossly intact, DTR 2+/4 and nonfocal Psych/Mental Status: Flat affect. Cries easily Results Lab / Micro Data Result Diagrams: 05/01/21 15:50 05/01/21 15:50 Labs: Laboratory Results - last 24 hr 05/01/21 15:50: WBC 11.3 H, RBC 4.71, Hgb 14.5, Hct 41.6, MCV 88.3, MCH 30.8, MCHC 34.9, RDW Std Deviation 41.8, RDW Coeff of Richard 13.0, Plt Count 268, MPV 10.9, Immature Gran % (Auto) 0.300, Neut % (Auto) 72.1 H, Lymph % (Auto) 19.1, [place] % (Auto) 8.0, Eos % (Auto) 0.1, Baso % (Auto) 0.4, Absolute Neuts (auto) 8.2 H, Absolute Lymphs (auto) 2.16, Nucleated RBC % 0 05/01/21 15:50: PT 12.5, INR 1.0 05/01/21 15:50: Sodium 128 L, Potassium 3.5, Chloride 86 L, Carbon Dioxide 29.0, Anion Gap 13, BUN 19 H, Creatinine 0.91, Estim Creat Clear Calc 50.05, Est GFR (MDRD) Af Amer 81, Est GFR (MDRD) Non-Af 67, BUN/Creatinine Ratio 20.8 H, Glucose 106, Calcium 9.3, Total Bilirubin 1.40 H, AST 28, ALT 11 L, Alkaline Phosphatase 71, Total Protein 7.0, Albumin 2.9 L, Globulin 4.1, Albumin/Globulin Ratio 0.7 L, Lipase 59 L 05/01/21 15:50: Lactic Acid Cancelled 05/01/21 17:15: Ethyl Alcohol 7.0 05/01/21 17:15: Lactic Acid 1.5 Micro: Microbiology 05/01/21 16:02 Nasal Secretion SARS-CoV-2 Antigen (Rapid) - Final Radiology Impression Chest X-Ray 05/01/21 16:43 IMPRESSION: Normal x-ray examination of the chest. Electronically Signed: Gerber Peraza MD at 17:07 EDT Tel , Service support , Assessment & Plan Assessment/Plan (1) Adult failure to thrive: (2) Esophageal dysphagia: (3) Hyponatremia: (4) Hypokalemia: PLAN: 1. Generalized weakness, adult failure to thrive, loss of weight: Probably due to chronic alcohol use and dysphagia. Patient is being admitted to [facility] floor. IV fluid normal saline. Swallowing screen before starting clear liquid diet. She has history of multiple recurrent falls in the past. COVID-19 rapid antigen is negative 2. Esophageal dysphagia with history of esophageal dilatation: I talked to Dr. Vega, broadcast producer. She does not remember when she had last esophageal dilatation, somewhere in [place]. Speech therapy evaluation. 3. Moderate chronic hyponatremia and hypokalemia: Hyponatremia probably beer Pot[place]ia/low solute intake. IV fluid normal saline normal saline at 75 mill per hour. Slow increase in serum sodium not more than 8 mEq/dL in 24 hours. IV KCl ordered. Check serum magnesium and phosphorus. 4. History of chronic alcohol use, dependence and tolerance: Liver test shows ALT 11, AST 28, TB 1.4. INR normal. Lipase normal. Ethyl alcohol 7.0, normal as she had last drink 4 days ago. Currently patient not having acute alcohol withdrawal and has not drank for last 4 days. CIWA monitoring and IV Ativan as needed for CIWA score. 5. Hypertension: Currently normal BP 120/93. 6. Nicotine dependence: Nicotine patch 7. Severe protein calorie malnutrition: Asset Availability Leader consult 8. DVT PPx- Lovenox SC Living will/advanced directive/end of life care: Patient does not have living will or advanced directive. Her niece near the bedside is power of family law attorney for health. After discussion of benefits/risks procedures involved with full code, DNR CC arrest and DNR CC, the patient and her niece opted for full code Patient does want artificial life support including intubation, tube feed, ventilator and/chest compression, central venous catheter, vasopressor and DC shock if needed Total time spent in [id number] encounter in discussion of advanced directive 16 minutes. Charges/Coding Visit Charges Inpatient E&M: 56206 Init Hosp L3 Procedures Hospitalists Procedures: 27281 Advncd Care Plan 30 Min
--- NOTE | 2021-05-01 19:58 | ED.RN ---
PT and family member would like to talk about getting feeding tube placed d/t poor intake. Advised PT and family that they should ask admission MD lal or tomorrow.
[2021-05-01 20:20] LABS: Magnesium 1.9 mg/dL (1.6-2.6); Phosphorus 3.2 mg/dL (2.5-4.9)
--- NOTE | 2021-05-01 20:42 | PCS.PANDOC ---
PANDEMIC DOCUMENTATION INITIATED: Date: 03/23/2021 Time: 190
--- NOTE | 2021-05-01 20:59 | EX.PCM.CON.G ---
HPI Consult Data Date of Consult: 05/01/21 HPI Narrative HPI Narrative: DEYA PUGA, is a 60 F who presents with esophageal dysphagia. She drink about 40 grams of alcohol per day. She has a hx of frequent alcoholic hepatitis, but no history of cirrhosis. Last CT in 2019 displayed Fatty liver disease. She feels very generalized weak, states her legs not able to hold up for walking, looks emaciated, very dehydrated. She also lost about 25 pounds in last 5 months as per her niece who is power of staff attorney for health that was on the phone. At this time she is complaining of pain in the back and she is unable to swallow any solids. [facility] Home Medications NK 05/01/21 [History Last Taken Unknown] Allergy/AdvReac Type Severity Reaction Status Date / Time No Known Allergies Allergy Verified 05/01/21 12:57 Family History Brother Alcoholism Father CVA (cerebral vascular accident) Social History household members: none Smoking Status: Current every day smoker tobacco type: cigarettes alcohol intake: current alcohol intake frequency: 3 or more drinks per day substance use type: does not use ROS Review of Systems ROS Unobtainable: other Constitutional Constitutional: Denies fatigue, fever(s), poor appetite, weight gain or weight loss ENT HEENT: Denies mouth lesions Cardiovascular Cardiovascular: Denies abdominal bloating, abdominal edema or abdominal pain Respiratory/Chest Respiratory/Chest: Denies change in mental status, change in phlegm color, chest congestion or chest tightness Gastrointestinal Gastrointestinal: Reports dysphagia and early satiety; Denies belching, bloating, change in bowel habits, change in stool character, chewing difficulty, coffee ground emesis, constipation, cramping, diarrhea, dyspepsia, excessive flatus, fecal incontinence, heartburn, hematemesis, hematochezia, hemorrhoids, loose stools, melena, nausea, odynophagia, rectal bleeding, tenesmus, vomiting or weight changes Genitourinary Genitourinary: Denies abdominal discomfort, burning urination or itching Musculoskeletal Musculoskeletal: Reports as per HPI; Denies muscle weakness or myalgias Integumentary Integumentary: Denies jaundice Neurologic Neurologic: Reports lack of coordination and weakness Psychiatric Psychiatric: Denies confusion, depression, memory loss, mood swings, paranoia or suicidal ideation Endocrine Endocrinology: Denies systems reviewed and no addt'l complaints, except as documented Hematologic/Lymphatic Hematologic/Lymphatic: Denies anemia, easy bleeding, easy bruising or lymphadenopathy Allergic/Immunologic Allergic/Immunologic: Denies systems reviewed and no addt'l complaints, except as documented Physical Exam Const alert General Appearance: cooperative Orientation / Consciousness: oriented to person HEENT Head and Scalp: normal to inspection Face and Sinus: face symmetric Nose: external nose normal Mouth: oral and palatal mucosa normal Eyes conjunctivae normal General Eye: normal appearance of both eyes Neck full ROM General: normal visual inspection Lymph Lymphatic: no lymphadenopathy noted Chest inspection of chest normal and palpation of chest normal Chest: symmetrical chest wall rise Resp normal respiratory effort Effort and Inspection: able to speak in complete sentences Cardio regular rate GI non-distended Percussion: normal to percussion Rectal Exam: deferred Neuro Speech: speech normal Gait (Neuro): normal gait Lab / Micro Data Result Diagrams: 05/01/21 15:50 05/01/21 15:50 Labs: Laboratory Results - last 24 hr 05/01/21 15:50: WBC 11.3 H, RBC 4.71, Hgb 14.5, Hct 41.6, MCV 88.3, MCH 30.8, MCHC 34.9, RDW Std Deviation 41.8, RDW Coeff of Richard 13.0, Plt Count 268, MPV 10.9, Immature Gran % (Auto) 0.300, Neut % (Auto) 72.1 H, Lymph % (Auto) 19.1, [place] % (Auto) 8.0, Eos % (Auto) 0.1, Baso % (Auto) 0.4, Absolute Neuts (auto) 8.2 H, Absolute Lymphs (auto) 2.16, Nucleated RBC % 0 05/01/21 15:50: PT 12.5, INR 1.0 05/01/21 15:50: Sodium 128 L, Potassium 3.5, Chloride 86 L, Carbon Dioxide 29.0, Anion Gap 13, BUN 19 H, Creatinine 0.91, Estim Creat Clear Calc 50.05, Est GFR (MDRD) Af Amer 81, Est GFR (MDRD) Non-Af 67, BUN/Creatinine Ratio 20.8 H, Glucose 106, Calcium 9.3, Total Bilirubin 1.40 H, AST 28, ALT 11 L, Alkaline Phosphatase 71, Total Protein 7.0, Albumin 2.9 L, Globulin 4.1, Albumin/Globulin Ratio 0.7 L, Lipase 59 L 05/01/21 15:50: Lactic Acid Cancelled 05/01/21 15:50: Phosphorus 3.2, Magnesium 1.9 05/01/21 17:15: Ethyl Alcohol 7.0 05/01/21 17:15: Lactic Acid 1.5 Micro: Microbiology 05/01/21 16:02 Nasal Secretion SARS-CoV-2 Antigen (Rapid) - Final Radiology Impression Chest X-Ray 05/01/21 16:43 IMPRESSION: Normal x-ray examination of the chest. Electronically Signed: Gerber Peraza MD at 17:07 EDT Tel , Service support , Assessment & Plan Assessment/Plan (1) Esophageal dysphagia: PLAN: Likely esophageal stricture from frequent vomiting. She would benefit from an egd with dilation. NPO after midnight. (2) Abnormal weight loss: PLAN: Likely secondary to alcoholism. I would repeat a CT scan of the abdomen/pelvis. (3) Chronic alcoholic hepatitis: PLAN: She has mild alcoholic hepatitis with a low MADRE score. No need for steroiods. Charges/Coding Visit Charges Inpatient E&M: 73398 Init Hosp L2
[2021-05-01] MEDS: 0.9% Normal Saline 1,000 ML 75 ML IV (22:34)
[2021-05-01] MEDS: Morphine 2 MG/ML Syringe IV (22:35)
[2021-05-01] MEDS: LORazepam 1 MG Tablet 2 MG PO (22:35)
[2021-05-01] MEDS: 0.9% Saline Lock 10 ML Syringe IV (22:36)
[2021-05-01] MEDS: Enoxaparin 40 MG/0.4 ML Syringe SC (22:41)
[2021-05-01] MEDS: Senna/Docusate Sodium 1 Tablet 2 TABLET PO (22:41)
[2021-05-02] VITALS (50 sets, daily range): BP systolic 84–177; BP diastolic 57–136; PULSE 90–123; RESP 12–375; TEMP 35.8–36.7; O2SAT 83–100
[2021-05-02] MEDS: Potassium Chloride 10mEq/100mL 10 MEQ/100 ML IV.SOLN. 100 MEQ IV BOLUS ×8 (00:33→23:23)
[2021-05-02 06:41] LABS: Absolute Lymphocyte Count 2.16 X10^3/uL (0.83-4.51); Absolute Neutrophil Count 14.8 X10^3/uL (2.0-7.7); Basophil# 0.06 X10^3/uL; Basophil% 0.3 % (0-1); Eosinophil# 0.04 X10^3/uL; Eosinophils% 0.2 % (0-5); Hematocrit 36.9 % (37-47); Hemoglobin 13.2 g/dL (12.0-15.0); Lymphocyte # 2.16 X10^3/ul (0.83-4.51); Mean Corp Hgb Conc 35.8 g/dL (32-36); Mean Corpuscular Volume 86.6 fL (81-99); Mean Platelet Vol. 10.3 fl (6.2-12.0); Monocyte# 0.92 X10^3/uL; Monocyte% 5.1 % (0-10); NRBC Flagged by Analyzer 0 % (0-5); Neutrophil # 14.75 X10^3/uL (2.7-7.7); Platelet Count 282 K/mm3 (150-450); RBC Distribution Width CV 13.1 % (11.6-14.6); RBC Distribution Width SD 40.9 fl (35.1-43.9); Red Blood Count 4.26 M/mm3 (4.2-5.4)
[2021-05-02 07:01] LABS: Prothrombin Time (Protime)PT. 12.7 SECONDS (11.7-14.9)
[2021-05-02 07:40] LABS: AST(SGOT) 18 U/L (15-37); Alanine Aminotransfer ALT/SGPT 8 U/L (13-56); Albumin, Serum 2.7 g/dL (3.2-5.0); Alkaline Phosphatase 63 U/L (45-117); Anion Gap 10 (5-15); BUN 17 mg/dL (7-18); BUN/Creat Ratio 21.8 RATIO (10-20); Calcium,Total 8.6 mg/dL (8.5-10.1); Chloride 87 mmol/L (98-107); Creatinine, Serum 0.78 mg/dL (0.55-1.02); EST Glomerular Filtration Rate 80 mL/min (>60); Est Glom Filt Rate - Afr Amer 97 mL/min (>60); Estimated Creatinine Clearance 44.26 ml/min; Globulin 3.4 g/dL (2.2-4.2); Glucose 78 mg/dL (74-106); Potassium 2.7 mmol/L (3.5-5.1); Protein, Total 6.1 g/dL (6.4-8.2); Sodium Level 129 mmol/L (136-145); Thyroid Stim Hormone (TSH) 1.93 uIU/mL (0.358-3.74)
--- NOTE | 2021-05-02 08:14 | PCM.PN.HOSP ---
Subjective Subjective Patient is a 60-year-old lady admitted with progressive generalized weakness meant of adult failure to thrive with multiple electrolyte abnormalities made patient admitted to regular nursing floor for further management Objective Data Objective Data Vital Signs: Vital Signs Temp Pulse Resp BP Pulse Ox 97.7 F L 97 16 152/100 H 96 05/02/21 03:31 05/02/21 03:31 05/02/21 03:31 05/02/21 03:31 05/02/21 03:31 Oxygen Delivery Method Room Air Weight: 36.1 kg Body Mass Index (BMI) 13.6 Intake & Output: Intake and Output for Last 24 Hours 04/30/21 05/01/21 05/02/21 23:59 23:59 23:59 Intake Total 550.2 / 550.2 649.75 / 649.75 Output Total 0 / 0 0 / 0 Balance 550.2 / 550.2 649.75 / 649.75 Lab / Micro Data Result Diagrams: 05/02/21 06:00 05/02/21 06:00 Labs: Laboratory Results - last 24 hr 05/01/21 15:50: WBC 11.3 H, RBC 4.71, Hgb 14.5, Hct 41.6, MCV 88.3, MCH 30.8, MCHC 34.9, RDW Std Deviation 41.8, RDW Coeff of Richard 13.0, Plt Count 268, MPV 10.9, Immature Gran % (Auto) 0.300, Neut % (Auto) 72.1 H, Lymph % (Auto) 19.1, [place] % (Auto) 8.0, Eos % (Auto) 0.1, Baso % (Auto) 0.4, Absolute Neuts (auto) 8.2 H, Absolute Lymphs (auto) 2.16, Nucleated RBC % 0 05/01/21 15:50: PT 12.5, INR 1.0 05/01/21 15:50: Sodium 128 L, Potassium 3.5, Chloride 86 L, Carbon Dioxide 29.0, Anion Gap 13, BUN 19 H, Creatinine 0.91, Estim Creat Clear Calc 50.05, Est GFR (MDRD) Af Amer 81, Est GFR (MDRD) Non-Af 67, BUN/Creatinine Ratio 20.8 H, Glucose 106, Calcium 9.3, Total Bilirubin 1.40 H, AST 28, ALT 11 L, Alkaline Phosphatase 71, Total Protein 7.0, Albumin 2.9 L, Globulin 4.1, Albumin/Globulin Ratio 0.7 L, Lipase 59 L 05/01/21 15:50: Lactic Acid Cancelled 05/01/21 15:50: Phosphorus 3.2, Magnesium 1.9 05/01/21 17:15: Ethyl Alcohol 7.0 05/01/21 17:15: Lactic Acid 1.5 05/02/21 06:00: WBC 18.0 H, RBC 4.26, Hgb 13.2, Hct 36.9 L, MCV 86.6, MCH 31.0, MCHC 35.8, RDW Std Deviation 40.9, RDW Coeff of Richard 13.1, Plt Count 282, MPV 10.3, Immature Gran % (Auto) 0.400, Neut % (Auto) 82.0 H, Lymph % (Auto) 12.0 L, [place] % (Auto) 5.1, Eos % (Auto) 0.2, Baso % (Auto) 0.3, Absolute Neuts (auto) 14.8 H, Absolute Lymphs (auto) 2.16, Nucleated RBC % 0 05/02/21 06:00: Sodium 129 L, Potassium 2.7 L*, Chloride 87 L, Carbon Dioxide 32.0, Anion Gap 10, BUN 17, Creatinine 0.78, Estim Creat Clear Calc 44.26, Est GFR (MDRD) Af Amer 97, Est GFR (MDRD) Non-Af 80, BUN/Creatinine Ratio 21.8 H, Glucose 78, Calcium 8.6, Total Bilirubin 1.20 H, Direct Bilirubin 0.30, AST 18, ALT 8 L, Alkaline Phosphatase 63, Total Protein 6.1 L, Albumin 2.7 L, Globulin 3.4, Folate 33.90, TSH 1.93 05/02/21 06:02: PT 12.7, INR 1.0, APTT 47.0 H Micro: Microbiology 05/01/21 16:02 Nasal Secretion SARS-CoV-2 Antigen (Rapid) - Final Radiography Diagnostic Testing: Radiology Impression Chest X-Ray 05/01/21 16:43 IMPRESSION: Normal x-ray examination of the chest. Electronically Signed: Gerber Peraza MD at 17:07 EDT Tel , Service support , Physical Exam Narrative GENERAL: Appears cachectic HEENT: Atraumatic; EYES; Anicteric, Normal Conjunctiva NECK; supple, normal thyroid, RESPIRATORY: Diminished to auscultation CARDIOVASCULAR: Regular S1 S2, GI: soft, normoactive bowel sounds, : No Renal angle tenderness; EXTREMITIES: No edema, no clubbing, MUSCULOSKELETAL: no muscle waisting NEURO: Awake; no lateralizing signs. SKIN: No Rash PSYCH; Flat affect Assessment & Plan Assessment/Plan (1) Adult failure to thrive: (2) Esophageal dysphagia: (3) Hyponatremia: (4) Hypokalemia: PLAN: Patient is a 60-year-old lady admitted with progressive generalized weakness meant of adult failure to thrive with multiple electrolyte abnormalities made patient admitted to regular nursing floor for further management 1. Adult failure to thrive ?Secondary to multiple comorbidities as well as chronic alcohol use. Admitted to regular nursing floor requested for PT OT eval and social media designer to assist with discharge planning 2. Severe protein calorie malnutrition -as evidenced by low energy level, muscle wasting as well as low BMI of 30.7. Consult placed to dietitian 3. Dysphagia ?Patient has history of esophageal dilatation. Consult placed to speech therapy 4. Leukocytosis ?Chest x-ray obtained unremarkable ordered urinalysis 5. Severe hypokalemia ?Patient currently being managed in a monitored bed potassium repleted per protocol with subsequent monitoring of electrolytes ordered 6. Severe hyponatremia ?Requested for urine osmolality as well as serum osmolality patient on IV fluids with monitoring of electrolytes do suspect beer potmania to be the cause 7. Chronic alcohol dependence ?Patient counseled on cessation. Patient placed on [facility] alcohol withdrawal protocol 8. Essential hypertension Per history currently not on any medication 9. Tobacco dependence - Counseled on cessation, offered nicotine patch for tobacco cravings 10. DVT prophylaxis ?SC Lovenox Charges/Coding Visit Charges Inpatient E&M: 00600 Subs Hosp L3
[2021-05-02] MEDS: Potassium Chloride Oral Tablet 20 MEQ 40 MEQ PO (08:54)
[2021-05-02 08:57] LABS: Magnesium 1.7 mg/dL (1.6-2.6)
[2021-05-02] MEDS: hydrALAZINE 20 MG/ML Vial 10 MG IV (09:42)
[2021-05-02] MEDS: 0.9% Saline Lock 10 ML Syringe IV (09:46)
[2021-05-02] MEDS: 0.9% Normal Saline 1,000 ML 75 ML IV (11:43)
--- NOTE | 2021-05-02 11:46 | OP.EGD_ITS ---
Patient Name: Arabella Buchanan Procedure Date: 05/02/2021 10:03 AM Date of : 1960 Age: 60 Procedure: Upper GI endoscopy Indications: Dysphagia Providers: Richard Lindsay DO Patient Profile: This is a 60 year old female. Refer to note in patient chart for documentation of history and physical. Patient has symptoms of acute vomiting. The symptoms first began 01,. Complications: No immediate complications. Procedure: Pre-Anesthesia Assessment: - Prior to the procedure, a History and Physical was performed, and patient medications and allergies were reviewed. The patient is competent. The risks and benefits of the procedure and the sedation options and risks were discussed with the patient. All questions were answered and informed consent was obtained. Patient identification and proposed procedure were verified by the physician in the pre-procedure area. Mental Status Examination: alert and oriented. Airway Examination: normal oropharyngeal airway and neck mobility. Respiratory Examination: clear to auscultation. CV Examination: normal. Prophylactic Antibiotics: The patient does not require prophylactic antibiotics. Prior Anticoagulants: The patient has taken no previous anticoagulant or antiplatelet agents. ASA Grade Assessment: II - A patient with mild systemic disease. After reviewing the risks and benefits, the patient was deemed in satisfactory condition to undergo the procedure. The anesthesia plan was to use moderate sedation / analgesia (conscious sedation). Immediately prior to administration of medications, the patient was re-assessed for adequacy to receive sedatives. The heart rate, respiratory rate, oxygen saturations, blood pressure, adequacy of pulmonary ventilation, and response to care were monitored throughout the procedure. The physical status of the patient was re-assessed after the procedure. After obtaining informed consent, the endoscope was passed under direct vision. Throughout the procedure, the patient's blood pressure, pulse, and oxygen saturations were monitored continuously. The gastroscope was introduced through the mouth, and advanced to the second part of duodenum. The upper GI endoscopy was accomplished without difficulty. The patient tolerated the procedure well. Moderate Sedation: Moderate (conscious) sedation was personally administered by an anesthesia professional. The following parameters were monitored: oxygen saturation, heart rate, blood pressure, and response to care. Scope In: 10:56:37 AM Scope Out: 11:10:06 AM Total Procedure Duration Time 0 hours 13 minutes 29 seconds Findings: LA Grade D (one or more mucosal breaks involving at least 75% of esophageal circumference) esophagitis with no bleeding was found. A TTS dilator was passed through the scope. Dilation with a 15-16.5-18 mm balloon dilator was performed to 18 mm. The dilation site was examined following endoscope reinsertion and showed moderate improvement in luminal narrowing. Estimated blood loss was minimal. A medium-sized hiatal hernia was present. Food was found in the middle third of the esophagus. The entire examined stomach was normal. The in the duodenum was normal. Impression: - LA Grade D erosive esophagitis. Dilated. - Medium-sized hiatal hernia. - Food in the middle third of the esophagus. - Normal stomach. - Normal. - No specimens collected. - LA Grade D reflux esophagitis. Dilated. - Food was found in the esophagus. Removal was successful. - Esophageal stenosis. Dilated. - Normal stomach. - Normal second portion of the duodenum. Recommendation: - Observe patient in PACU for ongoing care. - Clear liquid diet today. - Give Protonix (pantoprazole): initiate therapy with 80 mg IV bolus, then 8 mg/hr IV by continuous infusion today. - Continue present medications. Procedure Code(s): --- Professional --- 24220, Esophagogastroduodenoscopy, flexible, transoral; with transendoscopic balloon dilation of esophagus (less than 30 mm diameter) CPT copyright 2017 [employer]. All rights reserved. The codes documented in this report are preliminary and upon superintendent refuse disposal review may be revised to meet current compliance requirements. Richard Lindsay DO 05/02/2021 11:46:14 AM This report has been signed electronically. Number of Addenda: 1 Note Initiated On: 05/02/2021 10:03 AM Addendum Number: 1 Addendum Date: 04/08/2022 4:03:27 PM MAC was used instead of moderate sedation for this patient. Richard Lindsay DO 04/08/2022 4:03:33 PM This report has been signed electronically.
--- NOTE | 2021-05-02 11:47 | OP.CCLET_ITS ---
04/08/2022 No Primary Care Physician Re : Upper GI endoscopy procedure for Arabella Buchanan Dear Care Physician This procedure was performed on Sunday, May 02, 2021. My impressions and recommendations are as follows: Impressions : - LA Grade D erosive esophagitis. Dilated. - Medium-sized hiatal hernia. - Food in the middle third of the esophagus. - Normal stomach. - Normal. - No specimens collected. - LA Grade D reflux esophagitis. Dilated. - Food was found in the esophagus. Removal was successful. - Esophageal stenosis. Dilated. - Normal stomach. - Normal second portion of the duodenum. Recommendations : - Observe patient in PACU for ongoing care. - Clear liquid diet today. - Give Protonix (pantoprazole): initiate therapy with 80 mg IV bolus, then 8 mg/hr IV by continuous infusion today. - Continue present medications. My findings are described in the full procedure note, which is enclosed. If I can be of further assistance, please feel free to contact me at . Sincerely, Richard Friend, 05/02/2021 11:46:14 AM This report has been signed electronically.
--- NOTE | 2021-05-02 12:02 | EKG12_ITS ---
Test Reason : AM EKG Blood Pressure : / mmHG Vent. Rate : 084 BPM Atrial Rate : 084 BPM P-R Int : 112 ms QRS Dur : 070 ms QT Int : 464 ms P-R-T Axes : 051 076 095 degrees QTc Int : 548 ms Normal sinus rhythm ST depression, consider subendocardial injury or digitalis effect Nonspecific T wave abnormality Prolonged QT Abnormal ECG When compared with ECG of 01-MAY-2021 16:13, MANUAL COMPARISON REQUIRED, DATA IS UNCONFIRMED Confirmed by CYNDY SAHU, LANCE ([id number]), news videotape editor RODDY MCCLURE ([id number]) on 05/06/2021 11:06:29 AM Referred By: ABHI Confirmed By:LANCE NAYLOR MD
[2021-05-02 12:56] LABS: Allen Test Positive; Base Excess 3 mmol/L (-2 to +2); Bicarbonate 26.3 mmol/L (22-26); Blood Gas Specimen Type ART; O2 Delivery Device NRB; PO2 56 mmHG (75-100); SITE R Radial; SO2 91 % (95-99); Total Carbon Dioxide 27 mmol/L; pCO2 35.9 mmHg (35-45); pH 7.47 (7.35-7.45)
--- NOTE | 2021-05-02 12:56 | RAD_ITS ---
STUDY: X-RAY CHEST REASON FOR EXAM: Female, 60 years old. Difficulty breathing. TECHNIQUE: Single frontal view of the chest. COMPARISON: 05/01/2021. FINDINGS: Hyperexpansion unchanged. Patchy opacity at the left base which may represent atelectasis or early/developing pneumonia. Follow-up imaging recommended. There is no demonstrated pleural abnormality. Cardiomegaly unchanged. Normal mediastinum and godfrey. Normal visualized pulmonary arteries. Normal visualized aortic arch and descending thoracic aorta. There is no demonstrated abnormality of the visualized soft tissue structures of the upper abdomen. RAD/Chest 1 View (Portable) IMPRESSION: Stable cardiomegaly with hyperexpansion. Patchy opacity at the left base representing atelectasis or early/developing pneumonia. Follow-up chest imaging is recommended. Electronically Signed: Tuan Guerrier MD at 13:59 EDT , Service support ,
--- NOTE | 2021-05-02 13:02 | CASEMGMT ---
Addendum entered by Sindy Khan 05/02/21 21:35: PAVEL noted that patient is currently in ICU. SW was unable to speak to patient today regarding alcohol use due to surgery and current medical state. Plan: SW to follow as needed. Sindy CROCKERSW Original Note: PAVEL Note Referral Source: RN CM Referral Reason: Patient is currently at hospital related to nausea and vomiting but is drinking 1/2 bottle a day of whiskey. SW went to patient's room. She was in surgery. PAVEL spoke to patient's nurse in PCU, Therese Davidson, who advised patient was not currently in PCU. Plan: Follow up with patient as needed. Sindy GARCIA
--- NOTE | 2021-05-02 13:33 | ECHOCS_ITS ---
Reason For Study: Abn EKG Procedure This was a 2D Doppler, Color Flow transthoracic echocardiogram. The study was technically difficult. Contrast injection was performed. Exam performed portable in ICU/CCU. Left Ventricle Normal LV size. Severe concentric left ventricular hypertrophy. Left ventricular systolic function is hyperdynamic. The estimated ejection fraction is 75 %. Diastolic function is indeterminate. No regional wall motion abnormalities noted. Right Ventricle Normal RV size. Normal systolic function. Atria Normal left atrium. Normal right atrium. No doppler evidence for ASD. Mitral Valve There is no mitral annular calcification. Normal mitral valve. Trivial mitral valve insufficiency. Tricuspid Valve Normal tricuspid valve. Trivial tricuspid valve insufficiency. Right ventricular systolic pressure estimated to be 42 mmHg. Aortic Valve Trisinus/trileaflet aortic valve. Normal aortic valve. Pulmonic Valve The pulmonic valve is not well visualized. Great Vessels Normal sized aortic root. Pericardium/Pleural No pericardial effusion. Epicardial fat. Medication Diluted definity 2ml given slow IV push to enhance endocardial definition. MMode/2D Measurements & Calculations LVIDd: 2.3 cm IVSd: 1.9 cm Ao root diam: 2.7 cm LVIDs: 0.99 cm LVPWd: 1.6 cm RVDd: 2.5 cm FS: 57.6 % LAV(MOD-bp): 13.4 ml LVAd ap4: 15.2 cm2 SV(MOD-sp4): 22.6 ml LAV(MOD-bp) Indexed: 9.4 ml/m2 LVLd ap4: 6.5 cm LAV(MOD-sp2): 20.8 ml EDV(MOD-sp4): 28.5 ml LAV(MOD-sp4): 8.6 ml EDV(sp4-el): 29.9 ml LVAs ap4: 6.3 cm2 LVLs ap4: 6.0 cm ESV(MOD-sp4): 6.0 ml ESV(sp4-el): 5.7 ml EF(MOD-sp4): 79.1 % EF(sp4-el): 80.9 % SV(sp4-el): 24.2 ml LA A4 area: 6.5 cm2 LA dimension(2D): 2.4 cm RA A4 area: 8.6 cm2 Doppler Measurements & Calculations MV E max дмитрий: 65.8 cm/sec Lat Peak E' Дмитрий: 9.7 cm/sec Med Peak E' Дмитрий: 7.5 cm/sec MV A max дмитрий: 126.2 cm/sec E/E' lat: 6.8 E/E' med: 8.8 MV E/A: 0.52 LV V1 max: 167.9 cm/sec PA V2 max: 181.2 cm/sec TR max дмитрий: 291.3 cm/sec LV V1 max P.3 mmHg TR max P.0 mmHg ECHO/Echo Complete W/ Contrast Interpretation Summary The study was technically difficult. Contrast injection was performed. Left ventricular systolic function is hyperdynamic. The estimated ejection fraction is 75 %. Severe concentric left ventricular hypertrophy. Trivial mitral valve insufficiency. Trivial tricuspid valve insufficiency. Epicardial fat. Right ventricular systolic pressure estimated to be 42 mmHg. Diastolic function is indeterminate. Ordering Physician: Azael Wick Performed By: Clare Gold RDCS, CHART
--- NOTE | 2021-05-02 13:58 | PN.HOSP_ITS ---
Subjective Subjective Patient seen and examined. Underwent upper GI. Patient drowsy following return to floor and noted to be hypoxic, requiring nonrebreather. Patient reported to have EKG changes postoperatively. Patient awakens to voice, denies chest pain. Objective Data Objective Data Vital Signs: Vital Signs Temp Pulse Resp BP Pulse Ox 96.5 F L 108 H 18 114/82 H 91 05/02/21 13:49 05/02/21 13:49 05/02/21 13:49 05/02/21 13:49 05/02/21 13:49 Oxygen Flow Rate (L/min) 15 Oxygen Delivery Method Non-Rebreather Weight: 79 lb 9.39 oz Body Mass Index (BMI) 13.6 Intake & Output: Intake and Output for Last 24 Hours 04/30/21 05/01/21 05/02/21 23:59 23:59 23:59 Intake Total 550.2 / 550.2 1541.20 / 1541.20 Output Total 0 / 0 0 / 0 Balance 550.2 / 550.2 1541.20 / 1541.20 Medical Nutrition Assessment Dietitian: Malnutrition Criteria Met Start: 05/02/21 13:48 Freq: Status: Active Protocol: Document 05/02/21 13:48 BP (Rec: 05/02/21 13:48 BP [id number]) Nutrition Malnutrition Evidence of Malnutrition Exists Yes Malnutrition (severe): Acute Illness/Injury Evidenced By Suboptimal Energy Intake ( Severe),Weight Loss (Severe) Clinical Problem Acute Disease or Injury Related Malnutrition Etiology Severe malnutrition in the context of acute acute disease /injury related to inadequate oral intake, swallowing difficulty Signs/Symptoms as evidenced by pt with esophageal dysphagia due to stricture with pt reporting vomiting shortly after eating, pt reports unintentional wt loss 25#/19% x 5 months, hx of chronic alcohol use likely impacting intake, and BMI 13.7 . Status Active Problem Swallowing Difficulty Etiology related to esophageal stricture Signs/Symptoms as evidenced by pt with esophageal dysphagia requiring NPO status, and pt report inability to tolerate foods PO as shortly after eating experiencing vomiting. Status Active Problem Recommendation Dietitian Recommendations/Changes Rec diet advanced as pt medically able to Regular with ensure enlive w/ meals. Lab / Micro Data Result Diagrams: 05/02/21 06:00 05/02/21 06:00 Labs: Laboratory Results - last 24 hr 05/01/21 15:50: WBC 11.3 H, RBC 4.71, Hgb 14.5, Hct 41.6, MCV 88.3, MCH 30.8, MCHC 34.9, RDW Std Deviation 41.8, RDW Coeff of Richard 13.0, Plt Count 268, MPV 10.9, Immature Gran % (Auto) 0.300, Neut % (Auto) 72.1 H, Lymph % (Auto) 19.1, [place] % (Auto) 8.0, Eos % (Auto) 0.1, Baso % (Auto) 0.4, Absolute Neuts (auto) 8.2 H, Absolute Lymphs (auto) 2.16, Nucleated RBC % 0 05/01/21 15:50: PT 12.5, INR 1.0 05/01/21 15:50: Sodium 128 L, Potassium 3.5, Chloride 86 L, Carbon Dioxide 29.0, Anion Gap 13, BUN 19 H, Creatinine 0.91, Estim Creat Clear Calc 50.05, Est GFR (MDRD) Af Amer 81, Est GFR (MDRD) Non-Af 67, BUN/Creatinine Ratio 20.8 H, Glucose 106, Calcium 9.3, Total Bilirubin 1.40 H, AST 28, ALT 11 L, Alkaline Phosphatase 71, Total Protein 7.0, Albumin 2.9 L, Globulin 4.1, Albumin/Globulin Ratio 0.7 L, Lipase 59 L 05/01/21 15:50: Lactic Acid Cancelled 05/01/21 15:50: Phosphorus 3.2, Magnesium 1.9 05/01/21 17:15: Ethyl Alcohol 7.0 05/01/21 17:15: Lactic Acid 1.5 05/02/21 06:00: WBC 18.0 H, RBC 4.26, Hgb 13.2, Hct 36.9 L, MCV 86.6, MCH 31.0, MCHC 35.8, RDW Std Deviation 40.9, RDW Coeff of Richard 13.1, Plt Count 282, MPV 10.3, Immature Gran % (Auto) 0.400, Neut % (Auto) 82.0 H, Lymph % (Auto) 12.0 L, [place] % (Auto) 5.1, Eos % (Auto) 0.2, Baso % (Auto) 0.3, Absolute Neuts (auto) 14.8 H, Absolute Lymphs (auto) 2.16, Nucleated RBC % 0 05/02/21 06:00: Sodium 129 L, Potassium 2.7 L*, Chloride 87 L, Carbon Dioxide 32.0, Anion Gap 10, BUN 17, Creatinine 0.78, Estim Creat Clear Calc 44.26, Est GFR (MDRD) Af Amer 97, Est GFR (MDRD) Non-Af 80, BUN/Creatinine Ratio 21.8 H, Glucose 78, Calcium 8.6, Total Bilirubin 1.20 H, Direct Bilirubin 0.30, AST 18, ALT 8 L, Alkaline Phosphatase 63, Total Protein 6.1 L, Albumin 2.7 L, Globulin 3.4, Folate 33.90, TSH 1.93 05/02/21 06:00: Blood Type O POSITIVE, Antibody Screen NEGATIVE 05/02/21 06:00: Magnesium 1.7 05/02/21 06:02: PT 12.7, INR 1.0, APTT 47.0 H Micro: Microbiology 05/01/21 16:02 Nasal Secretion SARS-CoV-2 Antigen (Rapid) - Final ABG Data ABG results: ABG 05/02/21 12:48 Specimen Type ART Sample Site R Radial pH 7.47 H Bicarbonate Actual 26.3 H Total CO2 27 Base Excess 3 H O2 Saturation 91 L ABG pCO2 35.9 ABG pO2 56 L Mohinder Test Positive O2 Delivery Device NRB Liter Flow 15.0 Radiography Diagnostic Testing: Radiology Impression Chest X-Ray 05/01/21 16:43 IMPRESSION: Normal x-ray examination of the chest. Electronically Signed: Gerber Peraza MD at 17:07 EDT Tel , Service support , Physical Exam Const Constitutional Narrative: Drowsy Nutritional Appearance: cachectic HEENT normocephalic Mouth: dry mucous membranes Eyes PERRL, EOMs intact bilaterally and conjunctivae normal Neck no lymphadenopathy Resp clear to auscultation bilaterally Auscultation: diminished lung sounds Cardio regular rate, regular rhythm and no murmurs Peripheral Pulses: pulses 2+ throughout GI normal to inspection, nondistended, normoactive bowel sounds, non-tender and non-distended Extremity normal to inspection Skin no rashes or lesions noted Lesions: no lesions Rashes: no rashes Trauma: no lacerations or abrasions Neuro CN's II-XII intact bilaterally, no focal motor deficits, no sensory deficits noted and deep tendon reflexes 2+ bilaterally Psych mental status grossly normal and affect normal Assessment & Plan Assessment/Plan (1) Adult failure to thrive: (2) Esophageal dysphagia: PLAN: 1. Acute on chronic esophageal dysphagia-GI consulted. Underwent upper GI which showed LA grade D erosive esophagitis, dilated. Continue speech therapy consult. Clear liquid diet when approved by speech therapy for oral intake. IV PPI. 2. Postoperative hypoxic respiratory failure-patient on 15 L nonrebreather. Chest x-ray postoperatively with hyperexpansion, patchy opacity in the left base suspected atelectasis versus early/developing pneumonia. Given dysphagia and concern for possible aspiration, will initiate IV Zosyn empirically. Scheduled duonebs. IS. Wean oxygen as tolerated. Low threshold to transition to BiPAP. 3. Postoperative EKG changes-enzymes series ordered. Echocardiogram ordered. The patient is drowsy on exam however denies chest pain. 4. Severe electrolyte disturbances with hypokalemia and hyponatremia-replace per protocol, trend BMP. IV fluids. 5. Severe protein calorie malnutrition-dietitian consulted, continue dietary supplementation per dietitian recommendations. 6. Adult failure to thrive-multifactorial secondary to chronic alcohol use and poor oral intake due to esophageal dysphagia. PT/OT. Case management consult for discharge planning. 7. History of chronic alcohol use-reported last drink 4 days ago. CIWA/Ativan protocol. If patient has evidence of alcohol withdrawal symptoms, will initiate additional medical stabilization protocol. Thiamine, folic acid, multivitamin supplementation. 8. Hypertension-continue amlodipine. 9. Tobacco dependence-encouraged cessation. DVT prophylaxis-Lovenox subcu This patient was seen by JASON Rutherford under the supervision of Dr. Wick.
[2021-05-02 15:02] LABS: Troponin-I HS 65 pg/mL (3.0-54.0)
[2021-05-02 15:09] LABS: Potassium 3.3 mmol/L (3.5-5.1)
--- NOTE | 2021-05-02 15:36 | SUR.PHASEI ---
1245 resp therapy at bedside to do abgs, and breathing tx [id number] radiology at bedside to to chest xray
--- NOTE | 2021-05-02 15:38 | SUR.PHASEI ---
1230 dr brock at bedside.
--- NOTE | 2021-05-02 15:57 | NURSING ---
Pt back from PACU on non rebreather at 15L, satting 86-90%. RT called to come look at pt. Jazz Cardenas NP at bedside soon after. Pt continued to desat and placed on BIPAP. Dr. Crane and Jazz Cardenas at bedside.
[2021-05-02 17:08] LABS: Troponin-I HS 98 pg/mL (3.0-54.0)
--- NOTE | 2021-05-02 17:09 | PCM.CONS.C ---
Assessment & Plan Assessment/Plan (1) Abnormal cardiac enzyme level: PLAN: The patient does have an abnormal cardiac enzyme [id number]-[id number] troponin I level. These levels are obtained post her EGD/dilatation procedure during her hypoxemia requiring supplemental O2 support. She does not appear to have ongoing classic acute coronary syndrome symptoms at this time. Thus it is unclear whether these cardiac enzyme changes are related to a primary cardiovascular event versus being secondary to a noncardiovascular event such as her hypoxemia requiring O2 therapy. At the present time her cardiac enzymes can be followed. Her cardiac rhythm will be followed. Her ECG will be followed for any significant changes. She will be asked to have a future transthoracic echocardiogram to evaluate her left ventricular wall motion and systolic function. In the interim she is going to be placed in the ICU for close monitoring of her respiratory status. Depending upon her future overall course and condition she may require additional cardiovascular diagnostic studies, etc. In the interim she can continue medical therapy such as aspirin, nitrates as needed, beta-blockers, lipid evaluation/lipid-lowering agents, etc. all as tolerated and able. (2) Abnormal electrocardiogram: PLAN: The patient does have an abnormal electrocardiogram. The patient has had previous ECGs that have demonstrated ST/T wave changes. The ECG can be followed for any significant changes. (3) Hypoxemia: PLAN: The etiology of the hypoxemia is uncertain. The patient does appear to have some underlying pulmonary disease based upon her history and CXR findings that may be a contributing factor. It is unclear as to whether the anesthetic that she received for the EGD contributed to her post procedure changes. She will continue her cardiac evaluation as noted. She will be monitored in the ICU for any pulmonary decompenstation. (4) Esophageal stricture: PLAN: She is now status EGD / dilatation. She will be followed by internal medicine and gastroenterology. (5) Adult failure to thrive: PLAN: She does appear to have a failure to thrive course. Her alcohol history may be a contributing factor to her failure to thrive. (6) HLD (hyperlipidemia): QUALIFIERS: Hyperlipidemia type: unspecified Qualified Code(s): E78.5 - Hyperlipidemia, unspecified PLAN: Her lipid can be evaluated and treated as needed. (7) Benign essential HTN: PLAN: Her blood pressure appeared to be elevated during her evaluation. It can be followed and treated as needed. Addt'l Comments The patient's case was discussed and reviewed with the Ida Cardenas CNP of the [facility] staff. This note was generated using a voice recognition system and there may be incorrect words, spelling or punctuation that were not noted when reviewing the office note prior to saving. HPI Consult Data Date of Consult: 05/02/21 HPI Narrative HPI Narrative: DEYA PUGA, is a 60 year old white female who presents for cardiovascular consultation secondary to concerns of an abnormal ECG in the setting of a post EGD/dilatation procedure with post procedure related hypoxemia requiring O2 support (nasal cannula, facemask, and BiPAP) superimposed upon a history of hypertension and CVA. According to the [facility] staff, medical records, and the patient's family member present (power of divorce attorney) there is been no report of any cardiovascular history in the past or cardiovascular testing in the past. Also, there is been no report of ongoing chest discomfort, orthopnea, PND, peripheral pitting edema, near-syncope or syncope. There has been concerns of chronic shortness of breath/dyspnea thought to be related to an underlying tobacco history and a possible pulmonary disease process. The patient was brought to [facility] based upon concerns of inability to maintain adequate fluid and food intake with ongoing nausea/emesis. There is been no report of approximately 20 to 25 pounds of weight loss over the last few months. This is superimposed upon a history of chronic alcohol intake (one half bottle of whiskey per day) and a history of esophageal stricture requiring esophageal dilatation (multiple times according to the POA) in the past. According to the POA the patient rents a room from another person. She has been reported as becoming emaciated and based upon the ongoing issues dehydrated. She was reported, prior to her procedure, to being on room air. She subsequently underwent an EGD with conscious sedation which according to the surgical staff appears to have included IV propofol for a total of 90 mg. According to the procedure report she was noted to have an LA grade D (1 or more mucosal breaks involving at least 75% of esophageal circumference) esophagitis with no bleeding. She underwent dilatation. She underwent repeat endoscopic evaluation which reportedly showed moderate improvement in luminal narrowing. The estimated blood loss was minimal. There was a comment that a medium sized hiatal hernia was present. The stomach was reported as normal. The duodenum was reported as normal. There was a comment that there was food in the esophagus. The patient was returned to the PCU. It appeared that she was hypoxic requiring initially 15 L of O2 nasal cannula and subsequently required facemask support and then BiPAP support. She was reported as being hemodynamically stable. She is currently in the process of being transferred to the ICU for close monitoring of her respiratory status. According to her POA she did require mechanical intubation/ventilation in the past. [facility], [facility] Medical History (Updated 05/02/21 @ 17:[address] Quinn Valentin MD) Abnormal cardiac enzyme level Abnormal electrocardiogram Alcohol use Anxiety Hypothyroidism Hypoxemia Migraines Post-menopausal Sleep apnea Smoker Stroke/cerebrovascular accident Home Medications NK 05/01/21 [History Last Taken Unknown] Allergy/AdvReac Type Severity Reaction Status Date / Time No Known Allergies Allergy Verified 05/01/21 12:57 Family History Brother Alcoholism Father CVA (cerebral vascular accident) Social History household members: none Smoking Status: Current every day smoker tobacco type: cigarettes alcohol intake: current alcohol intake frequency: 3 or more drinks per day substance use type: does not use ROS Review of Systems ROS Unobtainable: other Details: Due to appearing somewhat lethargic Constitutional Constitutional: Reports lethargy Eyes Eyes: Reports systems reviewed and no addt'l complaints, except as documented ENT HEENT: Reports systems reviewed and no addt'l complaints, except as documented Cardiovascular Cardiovascular: Reports systems reviewed and no addt'l complaints, except as documented Respiratory/Chest Respiratory/Chest: Reports systems reviewed and no addt'l complaints, except as documented Gastrointestinal Gastrointestinal: Reports systems reviewed and no addt'l complaints, except as documented Musculoskeletal Musculoskeletal: Reports systems reviewed and no addt'l complaints, except as documented Physical Exam Narrative This is a 60-year-old white female who appears to be older than stated age who appears somewhat lethargic wearing O2 support. HEENT normocephalic and head/scalp atraumatic Eyes PERRL and EOMs intact bilaterally Neck no JVD Resp Resp Narrative: Diminished inspiratory effort Cardio regular rate, regular rhythm, S1 normal heart sound and S2 normal heart sound GI normal to inspection, nondistended, normoactive bowel sounds Extremity no pedal edema Skin no rashes or lesions noted Neuro moves all extremities Procedure Criteria Type of Procedure Procedure Type: Elective Elective Risks - COVID COVID Risk Discussion: The surgeon/proceduralist and patient have discussed in detail the risk of exposure to and/or potential harm posed by the COVID-19 virus with having a surgery/procedure at this time versus the risk of delaying the surgery/procedure. It is not possible to know either the risk of delaying the surgery or procedure or chance of getting an infection with perfect accuracy, but a joint decision was made between the patient and the surgeon/proceduralist to proceed at this time with the scheduled surgery/procedure as indicated on the consent form. Objective Data Vital Signs: Vital Signs Temp Pulse Resp BP Pulse Ox 96.5 F L 101 H 21 H 127/108 H 99 05/02/21 16:05 05/02/21 16:05 05/02/21 16:05 05/02/21 16:05 05/02/21 16:05 Oxygen Flow Rate (L/min) 15 Oxygen Delivery Method Bi-pap Weight: 79 lb 9.39 oz Body Mass Index (BMI) 13.6 Intake & Output: Intake and Output for Last 24 Hours 04/30/21 05/01/21 05/02/21 23:59 23:59 23:59 Intake Total 550.2 / 550.2 1609.87 / 1609.87 Output Total 0 / 0 0 / 0 Balance 550.2 / 550.2 1609.87 / 1609.87 Lab / Micro Data Result Diagrams: 05/02/21 06:00 05/02/21 14:30 Labs: Laboratory Results - last 24 hr 05/01/21 15:50: Phosphorus 3.2, Magnesium 1.9 05/01/21 17:15: Ethyl Alcohol 7.0 05/01/21 17:15: Lactic Acid 1.5 05/02/21 06:00: WBC 18.0 H, RBC 4.26, Hgb 13.2, Hct 36.9 L, MCV 86.6, MCH 31.0, MCHC 35.8, RDW Std Deviation 40.9, RDW Coeff of Richard 13.1, Plt Count 282, MPV 10.3, Immature Gran % (Auto) 0.400, Neut % (Auto) 82.0 H, Lymph % (Auto) 12.0 L, [place] % (Auto) 5.1, Eos % (Auto) 0.2, Baso % (Auto) 0.3, Absolute Neuts (auto) 14.8 H, Absolute Lymphs (auto) 2.16, Nucleated RBC % 0 05/02/21 06:00: Sodium 129 L, Potassium 2.7 L*, Chloride 87 L, Carbon Dioxide 32.0, Anion Gap 10, BUN 17, Creatinine 0.78, Estim Creat Clear Calc 44.26, Est GFR (MDRD) Af Amer 97, Est GFR (MDRD) Non-Af 80, BUN/Creatinine Ratio 21.8 H, Glucose 78, Calcium 8.6, Total Bilirubin 1.20 H, Direct Bilirubin 0.30, AST 18, ALT 8 L, Alkaline Phosphatase 63, Total Protein 6.1 L, Albumin 2.7 L, Globulin 3.4, Folate 33.90, TSH 1.93 05/02/21 06:00: Blood Type O POSITIVE, Antibody Screen NEGATIVE 05/02/21 06:00: Magnesium 1.7 05/02/21 06:02: PT 12.7, INR 1.0, APTT 47.0 H 05/02/21 14:30: Troponin I High Sens 65 H 05/02/21 14:30: Potassium 3.3 L 05/02/21 16:27: Troponin I High Sens 98 H Micro: Microbiology 05/01/21 16:02 Nasal Secretion SARS-CoV-2 Antigen (Rapid) - Final ABG Data ABG results: ABG 05/02/21 12:48 Specimen Type ART Sample Site R Radial pH 7.47 H Bicarbonate Actual 26.3 H Total CO2 27 Base Excess 3 H O2 Saturation 91 L ABG pCO2 35.9 ABG pO2 56 L Mohinder Test Positive O2 Delivery Device NRB Liter Flow 15.0 Cardiology Labs/Tests 05/01/21 15:50: Phosphorus 3.2, Magnesium 1.9 05/01/21 17:15: Lactic Acid 1.5 05/02/21 06:00: WBC 18.0 H, RBC 4.26, Hgb 13.2, Hct 36.9 L, MCV 86.6, MCH 31.0, MCHC 35.8, Plt Count 282, MPV 10.3, Immature Gran % (Auto) 0.400, Neut % (Auto) 82.0 H, Lymph % (Auto) 12.0 L, [place] % (Auto) 5.1, Eos % (Auto) 0.2, Baso % (Auto) 0.3, Absolute Neuts (auto) 14.8 H, Nucleated RBC % 0 05/02/21 06:00: Sodium 129 L, Potassium 2.7 L*, Chloride 87 L, Carbon Dioxide 32.0, Anion Gap 10, BUN 17, Creatinine 0.78, Est GFR (MDRD) Af Amer 97, Est GFR (MDRD) Non-Af 80, BUN/Creatinine Ratio 21.8 H, Glucose 78, Calcium 8.6, Total Bilirubin 1.20 H, Direct Bilirubin 0.30 05/02/21 06:00: Magnesium 1.7 05/02/21 06:02: PT 12.7, INR 1.0, APTT 47.0 H 05/02/21 12:48: pH 7.47 H, Bicarbonate Actual 26.3 H, Base Excess 3 H, O2 Saturation 91 L, ABG pCO2 35.9, ABG pO2 56 L, Mohinder Test Positive 05/02/21 14:30: Potassium 3.3 L Rhythm: Sinus rhythm EKG: Sinus rhythm; nonspecific ST segment abnormality Radiography Diagnostic Testing: Radiology Impression Chest X-Ray 05/02/21 12:56 IMPRESSION: Stable cardiomegaly with hyperexpansion. Patchy opacity at the left base representing atelectasis or early/developing pneumonia. Follow-up chest imaging is recommended. Electronically Signed: Tuan Guerrier MD at 13:59 EDT , Service support ,
[2021-05-02 17:40] LABS: Allen Test Positive; Base Excess 3 mmol/L (-2 to +2); Bicarbonate 27.6 mmol/L (22-26); Blood Gas Specimen Type ART; FI02 90; Mode BiLevel; O2 Delivery Device BiPAP; PEEP 5; PO2 217 mmHG (75-100); RR 12; SITE R Radial; SO2 100 % (95-99); Total Carbon Dioxide 29 mmol/L; pCO2 44.7 mmHg (35-45)
[2021-05-02] MEDS: Ipratropium/Albuterol Sulfate 3 ML AMPUL.NEB INHALATION (19:04)
[2021-05-02] MEDS: Etomidate 20 MG/10 ML Vial IV (22:03)
[2021-05-02] MEDS: Midazolam 2 MG/2 ML Syringe IV (22:03)
--- NOTE | 2021-05-02 22:13 | PCM.HOSP.N ---
Hospitalist Note Intubation Note: Patient with evidence of respiratory distress really saturating on already maxed BiPAP settings, mottled appearance. Medications administered: Pulmonary 20 mg, Versed 2 mg, succinylcholine 50 mg. ETT size:. Patient intubated in standard fashion with visualization of the vocal cords and passage of the ETT. Positioning verified with auscultation. Post-intubation CXR requested. Patient in the ICU with already architect naval consultation in place. Will update architect naval on intubation requirement. Will maintain intubated, sedated with fentanyl and propofol. Procedures Hospitalists Procedures: 29335 Insert Emergency Airway
[2021-05-02] MEDS: Propofol 10MG/Ml 1,000 MG/100 ML Bottle 2.2 MG CONT INF (22:15)
--- NOTE | 2021-05-02 22:16 | RAD_ITS ---
STUDY: X-RAY CHEST REASON FOR EXAM: Female, 60 years old. To confirm ET placement -- Call wet read to TECHNIQUE: AP COMPARISON: Earlier today FINDINGS: Endotracheal tube present with tip terminating 4.9 cm above the milton. Esophagogastric tube extends the stomach. Persistent airspace disease in the left lung base. There is no demonstrated pleural abnormality. Normal size heart. Normal mediastinum and godfrey. Normal visualized pulmonary arteries. There is atherosclerotic tortuosity of the aortic arch and descending thoracic aorta. No acute bony process. There is no demonstrated abnormality of the visualized soft tissue structures of the upper abdomen. RAD/Chest 1 View (Portable) IMPRESSION: 1. Endotracheal and esophagogastric tubes, as above. 2. Left lower lobe airspace disease. Electronically Signed: Dawson Swann MD ([place]) at 23:08 EDT , Service support ,
--- NOTE | 2021-05-02 22:30 | RAD_ITS ---
STUDY: X-RAY - ABDOMEN/PELVIS REASON FOR EXAM: Female, 60 years old. Confirm OG placement -- Prior to admin of any med,fluid,flush,enteral feed TECHNIQUE: Single AP view of the abdomen / pelvis. COMPARISON: None. FINDINGS: Esophagogastric tube extends to the stomach. There is an unremarkable bowel gas pattern. There is no demonstrated free abdominal air. The visualized liver, spleen and kidneys are grossly normal in size and morphology. Normal soft tissue structures. Normal visualized osseous structures. RAD/Abdomen Single View (Portable) IMPRESSION: Esophagogastric tube extends to the upper abdomen. Electronically Signed: Dawson Swann MD ([place]) at 23:10 EDT , Service support ,
--- NOTE | 2021-05-02 23:16 | NURSING ---
2144- Dr. Costa paged to come assess patient. Patient appeared to be short of breath and had increased work of breathing despite being maxed on Bipap settings. Patient was sating 88-89%. Patient also appeared mottled from the waist down. We are also unable to gain IV access besides one 22 gauge PIV. 2154- Dr. Costa is at bedside assessing patient and preparing for intubation. RN and RT are at bedside preparing meds and intubation supplies. 3- Versed 2mg IVP given and Etomidate 20mg IVP given. 2203- Succinylcholine 50mg IVP given 6- Patient successfully intubated with 7.5mm ETT, 23cm @ the lip. Positive color change and bilateral breath sounds noted. OG placed. STAT chest x-ray ordered to confirm placement of tubes.
[2021-05-02 23:41] LABS: Allen Test Positive; Base Excess 0 mmol/L (-2 to +2); Bicarbonate 23.2 mmol/L (22-26); Blood Gas Specimen Type ART; FI02 60; Mode AC; O2 Delivery Device Adult Vent; PEEP 5; PO2 141 mmHG (75-100); RR 14; SITE R Radial; SO2 100 % (95-99); Total Carbon Dioxide 24 mmol/L; Vt 400; pCO2 28.2 mmHg (35-45); pH 7.52 (7.35-7.45)
[2021-05-03] VITALS (38 sets, daily range): BP systolic 57–138; BP diastolic 43–100; PULSE 73–111; RESP 14–375; TEMP 35.7–36.6; O2SAT 91–100
--- NOTE | 2021-05-03 00:31 | RAD_ITS ---
STUDY: X-RAY CHEST REASON FOR EXAM: Female, 60 years old patient with central line placement. TECHNIQUE: Single AP portable view of the chest. COMPARISON: Chest radiograph dated 05/02/2021. FINDINGS: Right-sided central line has been placed within the internal jugular vein and the tip of the catheter is in the superior vena cava. Patient is intubated with tip of endotracheal tube at the level aortic arch. Enteric tube is present with its level below the hemidiaphragms and below the inferior edge of the image. Cardiac monitoring leads are present. The lungs are hyperexpanded. There is heterogeneous left basilar airspace consolidation similar to previous study probably representing pneumonia. There is no demonstrated pleural abnormality. Normal size heart. Normal mediastinum and godfrey. Normal visualized pulmonary arteries. There is atherosclerotic calcification of the aortic arch with tortuosity. There is demineralization of the osseous structures. Normal visualized ribs, clavicles, and shoulders. There is no demonstrated abnormality of the visualized soft tissue structures of the upper abdomen. RAD/CXR for Line Placement IMPRESSION: 1. Appropriate positioning of right-sided central venous catheter without evidence of pneumothorax. 2. Left basilar airspace consolidation consistent with pneumonia. Electronically Signed: Nayely Singletary MD at 2:08 EDT , Service support ,
[2021-05-03 01:51] LABS: Triglycerides 155 mg/dL; Troponin-I HS 179 pg/mL (3.0-54.0)
[2021-05-03] MEDS: 0.9% Normal Saline 1,000 ML 75 ML IV (02:23)
[2021-05-03] MEDS: 0.9% Normal Saline 1,000 ML 999 ML IV (02:29)
[2021-05-03 03:34] LABS: Absolute Lymphocyte Count 1.18 X10^3/uL (0.83-4.51); Absolute Neutrophil Count 18.1 X10^3/uL (2.0-7.7); Basophil# 0.02 X10^3/uL; Basophil% 0.1 % (0-1); Hematocrit 29.6 % (37-47); Hemoglobin 10.2 g/dL (12.0-15.0); Lymphocyte # 1.18 X10^3/ul (0.83-4.51); Lymphocyte % 5.8 % (19-41); Mean Corp Hgb Conc 34.5 g/dL (32-36); Mean Corpuscular Hgb 30.7 pg (27.0-32.0); Mean Corpuscular Volume 89.2 fL (81-99); Monocyte# 1.02 X10^3/uL; NRBC Flagged by Analyzer 0.1 % (0-5); Neutrophil # 18.12 X10^3/uL (2.7-7.7); Neutrophil % 88.7 % (47-70); Platelet Count 239 K/mm3 (150-450); RBC Distribution Width CV 13.2 % (11.6-14.6); RBC Distribution Width SD 43.2 fl (35.1-43.9); Red Blood Count 3.32 M/mm3 (4.2-5.4); White Blood Count 20.4 K/mm3 (4.4-11.0)
[2021-05-03 04:02] LABS: ALB/GLOB Ratio 0.7 RATIO (0.9-2.4); AST(SGOT) 11 U/L (15-37); Alanine Aminotransfer ALT/SGPT < 6 U/L (13-56); Albumin, Serum 1.7 g/dL (3.2-5.0); Alkaline Phosphatase 41 U/L (45-117); Anion Gap 14 (5-15); BUN 18 mg/dL (7-18); BUN/Creat Ratio 21.1 RATIO (10-20); Calcium,Total 7.4 mg/dL (8.5-10.1); Chloride 99 mmol/L (98-107); Creatinine, Serum 0.85 mg/dL (0.55-1.02); EST Glomerular Filtration Rate 72 mL/min (>60); Est Glom Filt Rate - Afr Amer 87 mL/min (>60); Estimated Creatinine Clearance 40.61 ml/min; Globulin 2.5 g/dL (2.2-4.2); Glucose 97 mg/dL (74-106); Magnesium 1.2 mg/dL (1.6-2.6); Phosphorus 2.5 mg/dL (2.5-4.9); Protein, Total 4.2 g/dL (6.4-8.2); Sodium Level 137 mmol/L (136-145)
[2021-05-03 04:03] LABS: Anion Gap 14 (5-15); BUN 18 mg/dL (7-18); BUN/Creat Ratio 20.5 RATIO (10-20); Calcium,Total 7.6 mg/dL (8.5-10.1); Chloride 100 mmol/L (98-107); Cholesterol 107 mg/dL (200); Creatinine, Serum 0.88 mg/dL (0.55-1.02); EST Glomerular Filtration Rate 70 mL/min (>60); Est Glom Filt Rate - Afr Amer 85 mL/min (>60); Estimated Creatinine Clearance 39.23 ml/min; Glucose 96 mg/dL (74-106); High Density Lipoprotein 50 mg/dL; Potassium 3.1 mmol/L (3.5-5.1); Sodium Level 138 mmol/L (136-145); Triglycerides 109 mg/dL; Very Low Density Lipoprotein 22 mg/dL (5-40)
--- NOTE | 2021-05-03 05:46 | EX.PCM.CONCC ---
Assessment & Plan Assessment/Plan (1) Acute hypoxemic respiratory failure: PLAN: RECOMMENDATIONS: 1. Continue patient on assist control mode mechanical ventilation. 2. Plan for paired spontaneous awakening and breathing trial beginning tomorrow. 3. Continue current sedation regimen. 4. Continue PPI therapy as ordered. 5. Continue thiamine and folate. 6. Continue empiric antimicrobials. 7. Aggressive electrolyte repletion. 8. Obtain and send sputum for culture. Check MRSA screen along with strep and urine Legionella antigens. 9. Stop continuous IV fluids. IMPRESSIONS: 1. Acute hypoxemic respiratory failure The patient required intubation after she developed respiratory distress and subsequent failure following an upper endoscopy. It is certainly plausible than an acute aspiration event along with medications used for the procedure may have been contributing factors for her decompensation. The patient does appear to have a left basilar airspace opacity on chest imaging. Accordingly, the patient will be continued on empiric antimicrobials. Will obtain and send sputum for culture. Ventilator requirements are minimal. Tube feeds can be initiated today from my perspective. 2. Distributive shock The patient became hypotensive largely as a consequence of the medications being utilized to sedate her while on the vent. She is overall net positive for the hospitalization. I agree with continuing Levophed to maintain mean arterial pressure at or above 65 mmHg. 3. Hypokalemia/hypomagnesemia Aggressive electrolyte repletion as ordered. The patient will need to be monitored closely for the development of refeeding syndrome. 4. Troponin elevation Likely secondary to demand ischemia. Cardiology is currently following. Continue medical management per their discretion. 5. Gastritis/esophageal stricture status post dilation Continue PPI therapy per GI recommendations. No free air on chest imaging to suggest esophageal perforation. 5. History of chronic alcohol dependency/failure to thrive/malnutrition/history of alcoholic hepatitis Complicates care, management, recovery and prognosis. Continue supportive measures as noted above. TIME: 37 minutes of critical care time, independent of procedures, was spent addressing the patient's acute hypoxemic respiratory failure, distributive shock, hypokalemia, troponin elevation, gastritis, review of all data and collaboration with the care team. ([id number]) HPI Consult Data Date of Consult: 05/03/21 HPI Narrative Reason for Consultation: Acute respiratory failure HPI Narrative: The patient is a 60-year-old female, with a history as outlined below, who initially presented to the emergency department on May 01 with generalized weakness and inability to tolerate p.o. intake. The patient has a history of chronic alcohol dependency and drinks approximately a half a bottle of whiskey every day. According to documentation, the patient has lost a significant amount of weight over the last 6 months. She has a history of alcoholic hepatitis and esophageal strictures. On presentation to the emergency department, the patient was noted to be afebrile and hemodynamically stable. Initial laboratory evaluation revealed a white blood cell count of 11,000. Coagulation profile revealed an INR of 1.0. Chemistry profile was notable for a sodium of 128, chloride of 86 and BUN of 19. Lactate was within normal limits. Total bili was increased to 1.4. Alcohol level was only noted to be 7.0. Chest x-ray demonstrated no acute cardiopulmonary process. The patient was initially admitted to the PCU with plans for IV fluid resuscitation and gastroenterology consultation. Due to her history of dysphagia and weight loss, the patient was evaluated by GI and subsequently underwent upper endoscopy on May 02 which revealed grade D esophagitis and esophageal stenosis which required dilation. Following the patient's procedure she returned to the medical floor where she was noted to be hypoxemic and drowsy. The patient was initially placed on nasal cannula oxygen but her requirement escalated quickly to the point that she required BiPAP support. Therefore, the patient was transferred to the medical intensive care unit for further management. Despite the aforementioned, the patient continued to decompensate clinically and required intubation overnight. The patient then went on to develop hypotension, which did not respond to fluid boluses. Therefore, she was started on vasopressor support. The patient is currently documented to be overall net +4.7 L for the hospital admission. Her white count is elevated this morning to 20,000. Her hemoglobin on presentation was noted to be 14.5 and is now down approximately 4 g to 10.2 this morning. Potassium is low at 3.0. Magnesium is low at 1.2. The patient has had approximately 100 mL of bloody output from her OG tube overnight. [facility] Medical History (Updated 05/03/21 @ 06:[address] Humza Goetz, ) Abnormal cardiac enzyme level Abnormal electrocardiogram Alcohol use Anxiety Hypothyroidism Hypoxemia Migraines Post-menopausal Sleep apnea Smoker Stroke/cerebrovascular accident Home Medications NK 05/01/21 [History Last Taken Unknown] Allergy/AdvReac Type Severity Reaction Status Date / Time No Known Allergies Allergy Verified 05/01/21 12:57 Family History Brother Alcoholism Father CVA (cerebral vascular accident) Social History household members: none Smoking Status: Current every day smoker tobacco type: cigarettes alcohol intake: current alcohol intake frequency: 3 or more drinks per day substance use type: does not use ROS Review of Systems ROS Unobtainable: due to encephalopathy and due to endotracheal tube Physical Exam Const General Appearance: frail, intubated and patient mechanically ventilated Nutritional Appearance: cachectic HEENT normocephalic and head/scalp atraumatic HEENT Narrative: Temporal wasting present Mouth: endotracheal tube in place and OG tube in place Eyes PERRL and EOMs intact bilaterally Neck supple General: trachea midline and CVC in place Chest inspection of chest normal Resp Auscultation: Negative for rales, rhonchi or wheezes Cardio regular rate and regular rhythm GI normal to inspection, nondistended, normoactive bowel sounds Extremity no clubbing, cyanosis or edema Skin no rashes or lesions noted Neuro Sensorium / Orientation: sedated on vent Medical Records Data Medical Nutrition Assessment Dietitian: Malnutrition Criteria Met Start: 05/02/21 13:48 Freq: Status: Active Protocol: Document 05/02/21 13:48 BP (Rec: 05/02/21 13:48 BP [id number]) Nutrition Malnutrition Evidence of Malnutrition Exists Yes Malnutrition (severe): Acute Illness/Injury Evidenced By Suboptimal Energy Intake ( Severe),Weight Loss (Severe) Clinical Problem Acute Disease or Injury Related Malnutrition Etiology Severe malnutrition in the context of acute acute disease /injury related to inadequate oral intake, swallowing difficulty Signs/Symptoms as evidenced by pt with esophageal dysphagia due to stricture with pt reporting vomiting shortly after eating, pt reports unintentional wt loss 25#/19% x 5 months, hx of chronic alcohol use likely impacting intake, and BMI 13.7 . Status Active Problem Swallowing Difficulty Etiology related to esophageal stricture Signs/Symptoms as evidenced by pt with esophageal dysphagia requiring NPO status, and pt report inability to tolerate foods PO as shortly after eating experiencing vomiting. Status Active Problem Recommendation Dietitian Recommendations/Changes Rec diet advanced as pt medically able to Regular with ensure enlive w/ meals. Lab / Micro Data Result Diagrams: 05/03/21 03:15 05/03/21 03:15 Labs: Laboratory Results - last 24 hr 05/02/21 06:00: WBC 18.0 H, RBC 4.26, Hgb 13.2, Hct 36.9 L, MCV 86.6, MCH 31.0, MCHC 35.8, RDW Std Deviation 40.9, RDW Coeff of Richard 13.1, Plt Count 282, MPV 10.3, Immature Gran % (Auto) 0.400, Neut % (Auto) 82.0 H, Lymph % (Auto) 12.0 L, [place] % (Auto) 5.1, Eos % (Auto) 0.2, Baso % (Auto) 0.3, Absolute Neuts (auto) 14.8 H, Absolute Lymphs (auto) 2.16, Nucleated RBC % 0 05/02/21 06:00: Sodium 129 L, Potassium 2.7 L*, Chloride 87 L, Carbon Dioxide 32.0, Anion Gap 10, BUN 17, Creatinine 0.78, Estim Creat Clear Calc 44.26, Est GFR (MDRD) Af Amer 97, Est GFR (MDRD) Non-Af 80, BUN/Creatinine Ratio 21.8 H, Glucose 78, Calcium 8.6, Total Bilirubin 1.20 H, Direct Bilirubin 0.30, AST 18, ALT 8 L, Alkaline Phosphatase 63, Total Protein 6.1 L, Albumin 2.7 L, Globulin 3.4, Folate 33.90, TSH 1.93 05/02/21 06:00: Blood Type O POSITIVE, Antibody Screen NEGATIVE 05/02/21 06:00: Magnesium 1.7 05/02/21 06:02: PT 12.7, INR 1.0, APTT 47.0 H 05/02/21 14:30: Troponin I High Sens 65 H 05/02/21 14:30: Potassium 3.3 L 05/02/21 16:27: Troponin I High Sens 98 H 05/03/21 01:00: Troponin I High Sens 179 H*, Triglycerides 155 05/03/21 03:15: Sodium 138, Potassium 3.1 L, Chloride 100, Carbon Dioxide 24.0, Anion Gap 14, BUN 18, Creatinine 0.88, Estim Creat Clear Calc 39.23, Est GFR (MDRD) Af Amer 85, Est GFR (MDRD) Non-Af 70, BUN/Creatinine Ratio 20.5 H, Glucose 96, Calcium 7.6 L, Triglycerides 109, Cholesterol 107, LDL Cholesterol 35, VLDL Cholesterol 22, HDL Cholesterol 50 05/03/21 03:15: WBC 20.4 H, RBC 3.32 L, Hgb 10.2 L, Hct 29.6 L, MCV 89.2, MCH 30.7, MCHC 34.5, RDW Std Deviation 43.2, RDW Coeff of Richard 13.2, Plt Count 239, MPV 11.0, Immature Gran % (Auto) 0.400, Neut % (Auto) 88.7 H, Lymph % (Auto) 5.8 L, [place] % (Auto) 5.0, Eos % (Auto) 0.0, Baso % (Auto) 0.1, Absolute Neuts (auto) 18.1 H, Absolute Lymphs (auto) 1.18, Nucleated RBC % 0.1 05/03/21 03:15: Sodium 137, Potassium 3.0 L, Chloride 99, Carbon Dioxide 24.0, Anion Gap 14, BUN 18, Creatinine 0.85, Estim Creat Clear Calc 40.61, Est GFR (MDRD) Af Amer 87, Est GFR (MDRD) Non-Af 72, BUN/Creatinine Ratio 21.1 H, Glucose 97, Calcium 7.4 L, Phosphorus 2.5, Magnesium 1.2 L, Total Bilirubin 1.40 H, AST 11 L, ALT < 6 L, Alkaline Phosphatase 41 L, Total Protein 4.2 L, Albumin 1.7 L, Globulin 2.5, Albumin/Globulin Ratio 0.7 L ABG Data ABG results: ABG 05/02/21 05/02/21 05/02/21 12:48 17:33 23:34 Specimen Type ART ART ART Sample Site R Radial R Radial R Radial pH 7.47 H 7.40 7.52 H Bicarbonate Actual 26.3 H 27.6 H 23.2 Total CO2 27 29 24 Base Excess 3 H 3 H 0 O2 Saturation 91 L 100 H 100 H O2 % 90 60 ABG pCO2 35.9 44.7 28.2 L ABG pO2 56 L 217 H 141 H Mohinder Test Positive Positive Positive Respiration Rate 12 14 O2 Delivery Device NRB BiPAP Adult Vent Liter Flow 15.0 Vent Mode BiLevel AC Tidal Volume 400 POC PEEP 5 5 Clinical Comments 05/12 12 90 Radiology Impression Chest X-Ray 05/02/21 12:56 IMPRESSION: Stable cardiomegaly with hyperexpansion. Patchy opacity at the left base representing atelectasis or early/developing pneumonia. Follow-up chest imaging is recommended. Electronically Signed: Tuan Guerrier MD at 13:59 EDT , Service support , Chest X-Ray 05/02/21 22:16 IMPRESSION: 1. Endotracheal and esophagogastric tubes, as above. 2. Left lower lobe airspace disease. Electronically Signed: Dawson Swann MD ([place]) at 23:08 EDT , Service support , KUB X-Ray 05/02/21 22:30 IMPRESSION: Esophagogastric tube extends to the upper abdomen. Electronically Signed: Dawson Swann MD ([place]) at 23:10 EDT , Service support , Chest X-Ray 05/03/21 00:31 IMPRESSION: 1. Appropriate positioning of right-sided central venous catheter without evidence of pneumothorax. 2. Left basilar airspace consolidation consistent with pneumonia. Electronically Signed: Nayely Singletary MD at 2:08 EDT , Service support , Charges/Coding Procedures Hospitalists Procedures: [id number] [facility]
--- NOTE | 2021-05-03 05:55 | EKG12_ITS ---
Test Reason : POST OP Blood Pressure : / mmHG Vent. Rate : 103 BPM Atrial Rate : 103 BPM P-R Int : 130 ms QRS Dur : 092 ms QT Int : 400 ms P-R-T Axes : 078 078 -50 degrees QTc Int : 524 ms Sinus tachycardia Biatrial enlargement Marked ST abnormality, possible anterior subendocardial injury Prolonged QT Abnormal ECG No previous ECGs available Confirmed by CYNDY SAHU, LANCE ([id number]), editor book RODDY MCCLURE ([id number]) on 05/06/2021 11:19:47 AM Referred By: Confirmed By:LANCE NAYLOR MD
--- NOTE | 2021-05-03 07:17 | PN.HOSP_ITS ---
Subjective Subjective Patient underwent EGD with dilatation for dysphagia stricture. Subsequently became lethargic and hypoxic patient was placed on BiPAP clinical condition however continued to deteriorate resulting in patient being intubated Objective Data Objective Data Vital Signs: Vital Signs Temp Pulse Resp BP Pulse Ox 96.5 F L 82 14 102/81 H 95 05/03/21 04:00 05/03/21 06:47 05/03/21 06:47 05/03/21 06:00 05/03/21 06:47 Oxygen Flow Rate (L/min) 15 Oxygen Delivery Method Mechanical Ventilator Weight: 38.5 kg Body Mass Index (BMI) 13.6 Intake & Output: Intake and Output for Last 24 Hours 05/01/21 05/02/21 05/03/21 23:59 23:59 23:59 Intake Total 550.2 / 550.2 2262.69 / 2262.69 Output Total 0 / 0 0 / 0 Balance 550.2 / 550.2 69 / [id number] Medical Nutrition Assessment Dietitian: Malnutrition Criteria Met Start: 05/02/21 13:48 Freq: Status: Active Protocol: Document 05/02/21 13:48 BP (Rec: 05/02/21 13:48 BP [id number]) Nutrition Malnutrition Evidence of Malnutrition Exists Yes Malnutrition (severe): Acute Illness/Injury Evidenced By Suboptimal Energy Intake ( Severe),Weight Loss (Severe) Clinical Problem Acute Disease or Injury Related Malnutrition Etiology Severe malnutrition in the context of acute acute disease /injury related to inadequate oral intake, swallowing difficulty Signs/Symptoms as evidenced by pt with esophageal dysphagia due to stricture with pt reporting vomiting shortly after eating, pt reports unintentional wt loss 25#/19% x 5 months, hx of chronic alcohol use likely impacting intake, and BMI 13.7 . Status Active Problem Swallowing Difficulty Etiology related to esophageal stricture Signs/Symptoms as evidenced by pt with esophageal dysphagia requiring NPO status, and pt report inability to tolerate foods PO as shortly after eating experiencing vomiting. Status Active Problem Recommendation Dietitian Recommendations/Changes Rec diet advanced as pt medically able to Regular with ensure enlive w/ meals. Lab / Micro Data Result Diagrams: 05/03/21 03:15 05/03/21 03:15 Labs: Laboratory Results - last 24 hr 05/02/21 06:00: Sodium 129 L, Potassium 2.7 L*, Chloride 87 L, Carbon Dioxide 32.0, Anion Gap 10, BUN 17, Creatinine 0.78, Estim Creat Clear Calc 44.26, Est GFR (MDRD) Af Amer 97, Est GFR (MDRD) Non-Af 80, BUN/Creatinine Ratio 21.8 H, Glucose 78, Calcium 8.6, Total Bilirubin 1.20 H, Direct Bilirubin 0.30, AST 18, ALT 8 L, Alkaline Phosphatase 63, Total Protein 6.1 L, Albumin 2.7 L, Globulin 3.4, Folate 33.90, TSH 1.93 05/02/21 06:00: Blood Type O POSITIVE, Antibody Screen NEGATIVE 05/02/21 06:00: Magnesium 1.7 05/02/21 14:30: Troponin I High Sens 65 H 05/02/21 14:30: Potassium 3.3 L 05/02/21 16:27: Troponin I High Sens 98 H 05/03/21 01:00: Troponin I High Sens 179 H*, Triglycerides 155 05/03/21 03:15: Sodium 138, Potassium 3.1 L, Chloride 100, Carbon Dioxide 24.0, Anion Gap 14, BUN 18, Creatinine 0.88, Estim Creat Clear Calc 39.23, Est GFR (MDRD) Af Amer 85, Est GFR (MDRD) Non-Af 70, BUN/Creatinine Ratio 20.5 H, Glucose 96, Calcium 7.6 L, Triglycerides 109, Cholesterol 107, LDL Cholesterol 35, VLDL Cholesterol 22, HDL Cholesterol 50 05/03/21 03:15: WBC 20.4 H, RBC 3.32 L, Hgb 10.2 L, Hct 29.6 L, MCV 89.2, MCH 30.7, MCHC 34.5, RDW Std Deviation 43.2, RDW Coeff of Richard 13.2, Plt Count 239, MPV 11.0, Immature Gran % (Auto) 0.400, Neut % (Auto) 88.7 H, Lymph % (Auto) 5.8 L, [place] % (Auto) 5.0, Eos % (Auto) 0.0, Baso % (Auto) 0.1, Absolute Neuts (auto) 18.1 H, Absolute Lymphs (auto) 1.18, Nucleated RBC % 0.1 05/03/21 03:15: Sodium 137, Potassium 3.0 L, Chloride 99, Carbon Dioxide 24.0, Anion Gap 14, BUN 18, Creatinine 0.85, Estim Creat Clear Calc 40.61, Est GFR (MDRD) Af Amer 87, Est GFR (MDRD) Non-Af 72, BUN/Creatinine Ratio 21.1 H, Glucose 97, Calcium 7.4 L, Phosphorus 2.5, Magnesium 1.2 L, Total Bilirubin 1.40 H, AST 11 L, ALT < 6 L, Alkaline Phosphatase 41 L, Total Protein 4.2 L, Albumin 1.7 L, Globulin 2.5, Albumin/Globulin Ratio 0.7 L Micro: Microbiology 05/01/21 16:02 Nasal Secretion SARS-CoV-2 Antigen (Rapid) - Final ABG Data ABG results: ABG 05/02/21 05/02/21 05/02/21 12:48 17:33 23:34 Specimen Type ART ART ART Sample Site R Radial R Radial R Radial pH 7.47 H 7.40 7.52 H Bicarbonate Actual 26.3 H 27.6 H 23.2 Total CO2 27 29 24 Base Excess 3 H 3 H 0 O2 Saturation 91 L 100 H 100 H O2 % 90 60 ABG pCO2 35.9 44.7 28.2 L ABG pO2 56 L 217 H 141 H Mohinder Test Positive Positive Positive Respiration Rate 12 14 O2 Delivery Device NRB BiPAP Adult Vent Liter Flow 15.0 Vent Mode BiLevel AC Tidal Volume 400 POC PEEP 5 5 Clinical Comments 05/12 12 90 Radiography Diagnostic Testing: Radiology Impression Chest X-Ray 05/02/21 12:56 IMPRESSION: Stable cardiomegaly with hyperexpansion. Patchy opacity at the left base representing atelectasis or early/developing pneumonia. Follow-up chest imaging is recommended. Electronically Signed: Tuan Guerrier MD at 13:59 EDT , Service support , Chest X-Ray 05/02/21 22:16 IMPRESSION: 1. Endotracheal and esophagogastric tubes, as above. 2. Left lower lobe airspace disease. Electronically Signed: Dawson Swann MD ([place]) at 23:08 EDT , Service support , KUB X-Ray 05/02/21 22:30 IMPRESSION: Esophagogastric tube extends to the upper abdomen. Electronically Signed: Dawson Swann MD ([place]) at 23:10 EDT , Service support , Chest X-Ray 05/03/21 00:31 IMPRESSION: 1. Appropriate positioning of right-sided central venous catheter without evidence of pneumothorax. 2. Left basilar airspace consolidation consistent with pneumonia. Electronically Signed: Nayely Singletary MD at 2:08 EDT , Service support , Physical Exam Narrative GENERAL: cachectic HEENT: ET tube in place EYES; Anicteric, Normal Conjunctiva NECK; supple, normal thyroid, RESPIRATORY: Diminished to auscultation CARDIOVASCULAR: Regular S1 S2, GI: soft, normoactive bowel sounds, : No Renal angle tenderness; EXTREMITIES: No edema, no clubbing, MUSCULOSKELETAL: no muscle waisting NEURO: Sedated on the vent SKIN: No Rash PSYCH; Flat affect Assessment & Plan Assessment/Plan (1) Adult failure to thrive: (2) Esophageal dysphagia: (3) Hypokalemia: (4) Hyponatremia: PLAN: Patient is a 60-year-old lady admitted with progressive generalized weakness meant of adult failure to thrive with multiple electrolyte abnormalities made patient admitted to regular nursing floor for further management 1. Acute hypoxic respiratory failure ?Suspected to be secondary to aspiration pneumonia. Patient was initially managed with noninvasive ventilation BiPAP however with continuous deterioration of her respiratory status patient had to be intubated 2. Septic shock ?Secondary to aspiration pneumonia patient currently being resuscitated with broad-spectrum antibiotic therapy as well as pressors 3. Elevated troponin ?Patient had postoperative EKG changes. Serial cardiac enzymes obtained demonstrated rising patient troponin level. Patient was started on heparin during the night. Echo has been ordered the day prior and consultation placed to cardiology 4. Dysphagia ?Patient underwent EGD by Dr. Lindsay on 05/02/2021 findings included LA grade D erosive esophagitis, medium-sized hiatal hernia, food in the middle 3rd of the esophagus and esophageal stenosis for which patient underwent dilatation 5. Adult failure to thrive ?Secondary to multiple comorbidities as well as chronic alcohol use. Admitted to regular nursing floor requested for PT OT eval and drug abuse social worker to assist with discharge planning 6. Severe protein calorie malnutrition -as evidenced by low energy level, muscle wasting as well as low BMI of 30.7. Consult placed to dietitian 7. Severe hypokalemia ?Patient currently being managed in a monitored bed potassium repleted per protocol with subsequent monitoring of electrolytes ordered 8. Severe hyponatremia ?Requested for urine osmolality as well as serum osmolality patient on IV fluids with monitoring of electrolytes do suspect beer potmania to be the cause 9. Chronic alcohol dependence ?Patient counseled on cessation. Patient placed on [facility] alcohol withdrawal protocol 10. Essential hypertension Per history currently not on any medication 11. Tobacco dependence - Counseled on cessation, offered nicotine patch for tobacco cravings 12. DVT prophylaxis ?SC Lovenox 13. Hypokalemia ?Corrected per protocol Charges/Coding Visit Charges Inpatient E&M: 61860 Init Hosp L3
[2021-05-03] MEDS: Magnesium Sulfate 4gm/100mL 4 GM/100 ML IV.SOLN. IV (07:23)
[2021-05-03 07:32] LABS: Bacteria 0 SEEN /hpf (None Seen); Mucous, Urine 0 SEEN /hpf (<or=2+); Red Blood Cells-Urine 0 SEEN /hpf (0-5)
[2021-05-03 08:21] LABS: Color, Urine Yellow (Yellow); Glucose, Dipstick Normal (Normal); Ketone-Dipstick 5 mg/dl (Negative); Leukocyte Esterase-Dipstick 25 /ul (Negative); Nitrite-Dipstick Negative (Negative); Occult Blood-Urine Negative /ul (Negative); Protein-Dipstick 30 mg/dl (Negative); Specific Gravity, Urine 1.015 (1.002-1.030); Urine Clarity Clear (Clear); Urine Urobilinogen 1 mg/dl (Normal)
[2021-05-03 08:23] LABS: Urine Bilirubin Dipstick 1 mg/dL (Negative)
[2021-05-03 08:32] LABS: Squamous Epithelial Cells - UA 0-5 SEEN /hpf (5-10); White Blood Cells 0-5 SEEN /hpf (0-5)
[2021-05-03 09:32] LABS: CPK Total, Creatine Kinase 35 U/L (26-192)
[2021-05-03] MEDS: Chlorhexidine 15 ML PO ×2 (09:36→21:01)
[2021-05-03] MEDS: Potassium Chloride Oral Tablet 20 MEQ 40 MEQ PO (09:37)
[2021-05-03] MEDS: Enoxaparin 40 MG/0.4 ML Syringe SC (09:46)
[2021-05-03] MEDS: Potassium Chloride Oral Tablet 20 MEQ PO ×2 (09:46→17:40)
[2021-05-03] MEDS: Aspirin 81 MG TAB.CHEW PO (09:46)
[2021-05-03] MEDS: Senna/Docusate Sodium 1 Tablet 2 TABLET PO ×2 (09:46→21:01)
--- NOTE | 2021-05-03 10:48 | PN.CARD_ITS ---
Subjective Subjective The patient in the ICU and now mechanically intubated / ventilated and on IV vasopressor agent (Levophed). Objective Data Vital Signs: Vital Signs Temp Pulse Resp BP Pulse Ox 97.7 F L 77 14 91/75 96 05/03/21 08:00 05/03/21 09:00 05/03/21 09:30 05/03/21 09:00 05/03/21 09:00 Oxygen Flow Rate (L/min) 15 Oxygen Delivery Method Mechanical Ventilator Weight: 84 lb 14.047 oz Body Mass Index (BMI) 13.6 Intake & Output: Intake and Output for Last 24 Hours 05/01/21 05/02/21 05/03/21 23:59 23:59 23:59 Intake Total 550.2 / 550.2 2921.67 / 2921.67 Output Total 0 / 0 0 / 0 Balance 550.2 / 550.2 2921.67 / 2921.67 Lab / Micro Data Result Diagrams: 05/03/21 03:15 05/03/21 03:15 Labs: Laboratory Results - last 24 hr 05/02/21 14:30: Troponin I High Sens 65 H 05/02/21 14:30: Potassium 3.3 L 05/02/21 16:27: Troponin I High Sens 98 H 05/03/21 01:00: Troponin I High Sens 179 H*, Triglycerides 155 05/03/21 03:15: Sodium 138, Potassium 3.1 L, Chloride 100, Carbon Dioxide 24.0, Anion Gap 14, BUN 18, Creatinine 0.88, Estim Creat Clear Calc 39.23, Est GFR (MDRD) Af Amer 85, Est GFR (MDRD) Non-Af 70, BUN/Creatinine Ratio 20.5 H, Glucose 96, Calcium 7.6 L, Triglycerides 109, Cholesterol 107, LDL Cholesterol 35, VLDL Cholesterol 22, HDL Cholesterol 50 05/03/21 03:15: WBC 20.4 H, RBC 3.32 L, Hgb 10.2 L, Hct 29.6 L, MCV 89.2, MCH 30.7, MCHC 34.5, RDW Std Deviation 43.2, RDW Coeff of Richard 13.2, Plt Count 239, MPV 11.0, Immature Gran % (Auto) 0.400, Neut % (Auto) 88.7 H, Lymph % (Auto) 5.8 L, [place] % (Auto) 5.0, Eos % (Auto) 0.0, Baso % (Auto) 0.1, Absolute Neuts (auto) 18.1 H, Absolute Lymphs (auto) 1.18, Nucleated RBC % 0.1 05/03/21 03:15: Total Creatine Kinase 35 05/03/21 03:15: Sodium 137, Potassium 3.0 L, Chloride 99, Carbon Dioxide 24.0, Anion Gap 14, BUN 18, Creatinine 0.85, Estim Creat Clear Calc 40.61, Est GFR (MDRD) Af Amer 87, Est GFR (MDRD) Non-Af 72, BUN/Creatinine Ratio 21.1 H, Glucose 97, Calcium 7.4 L, Phosphorus 2.5, Magnesium 1.2 L, Total Bilirubin 1.40 H, AST 11 L, ALT < 6 L, Alkaline Phosphatase 41 L, Total Protein 4.2 L, Albumin 1.7 L, Globulin 2.5, Albumin/Globulin Ratio 0.7 L 05/03/21 03:15: Magnesium Cancelled 05/03/21 07:20: Urine Color Yellow, Urine Clarity Clear, Urine pH 5.0, Ur Spec ific [place] 1.015, Urine Protein 30 H, Urine Glucose (UA) Normal, Urine Ketones 5 H, Urine Occult Blood Negative, Urine Nitrite Negative, Urine Bilirubin 1 H, Urine Urobilinogen 1 H, Ur Leukocyte Esterase 25 H, Urine RBC 0 SEEN, Urine WBC 0-5 SEEN, Ur Squamous Epith Cells 0-5 SEEN, Urine Bacteria 0 SEEN, Urine Mucus 0 SEEN 05/03/21 07:20: Ur Drug Screen Comment Micro: Microbiology 05/03/21 07:20 Urine Catheter - Catheter Legionella Antigen - Final 05/03/21 07:20 Urine Catheter - Catheter Streptococcus pneumoniae Antigen (M - Final ABG Data ABG results: ABG 05/02/21 05/02/21 05/02/21 12:48 17:33 23:34 Specimen Type ART ART ART Sample Site R Radial R Radial R Radial pH 7.47 H 7.40 7.52 H Bicarbonate Actual 26.3 H 27.6 H 23.2 Total CO2 27 29 24 Base Excess 3 H 3 H 0 O2 Saturation 91 L 100 H 100 H O2 % 90 60 ABG pCO2 35.9 44.7 28.2 L ABG pO2 56 L 217 H 141 H Mohinder Test Positive Positive Positive Respiration Rate 12 14 O2 Delivery Device NRB BiPAP Adult Vent Liter Flow 15.0 Vent Mode BiLevel AC Tidal Volume 400 POC PEEP 5 5 Clinical Comments 05/12 12 90 Cardiology Labs/Tests 05/02/21 12:48: pH 7.47 H, Bicarbonate Actual 26.3 H, Base Excess 3 H, O2 Saturation 91 L, ABG pCO2 35.9, ABG pO2 56 L, Mohinder Test Positive 05/02/21 14:30: Potassium 3.3 L 05/02/21 17:33: pH 7.40, Bicarbonate Actual 27.6 H, Base Excess 3 H, O2 Saturation 100 H, ABG pCO2 44.7, ABG pO2 217 H, Mohinder Test Positive 05/02/21 23:34: pH 7.52 H, Bicarbonate Actual 23.2, Base Excess 0, O2 Saturation 100 H, ABG pCO2 28.2 L, ABG pO2 141 H, Mohinder Test Positive 05/03/21 01:00: Triglycerides 155 05/03/21 03:15: Sodium 138, Potassium 3.1 L, Chloride 100, Carbon Dioxide 24.0, Anion Gap 14, BUN 18, Creatinine 0.88, Est GFR (MDRD) Af Amer 85, Est GFR (MDRD) Non-Af 70, BUN/Creatinine Ratio 20.5 H, Glucose 96, Calcium 7.6 L, Triglycerides 109, Cholesterol 107, LDL Cholesterol 35, VLDL Cholesterol 22, HDL Cholesterol 50 05/03/21 03:15: WBC 20.4 H, RBC 3.32 L, Hgb 10.2 L, Hct 29.6 L, MCV 89.2, MCH 30.7, MCHC 34.5, Plt Count 239, MPV 11.0, Immature Gran % (Auto) 0.400, Neut % (Auto) 88.7 H, Lymph % (Auto) 5.8 L, [place] % (Auto) 5.0, Eos % (Auto) 0.0, Baso % (Auto) 0.1, Absolute Neuts (auto) 18.1 H, Nucleated RBC % 0.1 05/03/21 03:15: Sodium 137, Potassium 3.0 L, Chloride 99, Carbon Dioxide 24.0, Anion Gap 14, BUN 18, Creatinine 0.85, Est GFR (MDRD) Af Amer 87, Est GFR (MDRD) Non-Af 72, BUN/Creatinine Ratio 21.1 H, Glucose 97, Calcium 7.4 L, Phosphorus 2.5, Magnesium 1.2 L, Total Bilirubin 1.40 H 05/03/21 03:15: Magnesium Cancelled 05/03/21 07:20: Urine Color Yellow, Urine Clarity Clear, Urine pH 5.0, Ur Specific [place] 1.015, Urine Protein 30 H, Urine Glucose (UA) Normal, Urine Ketones 5 H, Urine Occult Blood Negative, Urine Nitrite Negative, Urine Bilirubin 1 H, Urine Urobilinogen 1 H, Ur Leukocyte Esterase 25 H, Urine RBC 0 SEEN, Urine WBC 0-5 SEEN Rhythm: sinus rhythm EKG: sinus rhythm; nonspecific ST/T wave abnormality (somewhat less prominent appearing c/w the previous ECGs) Radiography Diagnostic Testing: Radiology Impression Chest X-Ray 05/02/21 12:56 IMPRESSION: Stable cardiomegaly with hyperexpansion. Patchy opacity at the left base representing atelectasis or early/developing pneumonia. Follow-up chest imaging is recommended. Electronically Signed: Tuan Guerrier MD at 13:59 EDT , Service support , Chest X-Ray 05/02/21 22:16 IMPRESSION: 1. Endotracheal and esophagogastric tubes, as above. 2. Left lower lobe airspace disease. Electronically Signed: Dawson Swann MD ([place]) at 23:08 EDT , Service support , KUB X-Ray 05/02/21 22:30 IMPRESSION: Esophagogastric tube extends to the upper abdomen. Electronically Signed: Dawson Swann MD ([place]) at 23:10 EDT , Service support , Chest X-Ray 05/03/21 00:31 IMPRESSION: 1. Appropriate positioning of right-sided central venous catheter without evidence of pneumothorax. 2. Left basilar airspace consolidation consistent with pneumonia. Electronically Signed: Nayely Singletary MD at 2:08 EDT , Service support , Physical Exam Resp Resp Narrative: scattered upper airway sounds Cardio regular rate, regular rhythm, S1 normal heart sound and S2 normal heart sound GI normal to inspection, nondistended, normoactive bowel sounds Extremity no pedal edema Assessment & Plan Assessment/Plan (1) Abnormal cardiac enzyme level: PLAN: The patient does have an abnormal cardiac enzyme [id number] troponin I level. These levels are obtained post her EGD/dilatation procedure during her hypoxemia requiring supplemental O2 support. She did not appear to have ongoing classic acute coronary syndrome symptoms at that the time of her original consultation based upon lack of classic symptoms, etc.. Thus it is unclear whether these cardiac enzyme changes are related to a primary cardiovascular event versus being secondary to a noncardiovascular event such as her hypoxemia requiring O2 therapy. Her cardiac rhythm as remained sinus. He follow up ECG has demonstrated no new acute ECG changes. An echocardiogram is pending. Unfortunately based upon her hypotension, possibly secondary to concerns of an aspiration pneumonia / sepsis and anemia, she is now on an IV vasopressor and cannot take medications such as nitrates, beta blockers, antiplatelet agents/anticoagulant agents. (2) Abnormal electrocardiogram: PLAN: The patient does have an abnormal electrocardiogram. The patient has had previous ECGs that have demonstrated ST/T wave changes. The follow up ECG appears somewhat less prominent with no obvious new acute ECG changes. (3) Hypoxemia: PLAN: The etiology of the hypoxemia may be secondary to a combination of factors. She is now mechanically intubated / ventilated. She will continue evaluation / care per internal medicine and pulmonology. (4) Esophageal stricture: PLAN: She is now status EGD / dilatation. She will be followed by internal medicine and gastroenterology. (5) Adult failure to thrive: PLAN: She does appear to have a failure to thrive course. Her alcohol history may be a contributing factor to her failure to thrive. (6) HLD (hyperlipidemia): QUALIFIERS: Hyperlipidemia type: unspecified Qualified Code(s): E78.5 - Hyperlipidemia, unspecified PLAN: Her lipid labs were reviewed and appear to be within acceptable limits. (7) Benign essential HTN: PLAN: Her blood pressure has decreased. She has now required IV vasopressor support. Addt'l Comments The patients case was discussed with Dr. Wick and Dr. Goetz. This note was generated using a voice recognition system and there may be inco rrect words, spelling or punctuation that were not noted when reviewing the office note prior to saving.
[2021-05-03] MEDS: Ipratropium/Albuterol Sulfate 3 ML AMPUL.NEB INHALATION ×3 (11:19→18:46)
[2021-05-03 12:21] LABS: M R Staph aureus DNA By PCR Negative (Negative); Probe Check PASS; Specimen Processing Control PASS
[2021-05-03] MEDS: Vital AF 1.2 Cal Liquid 1,000 ML 15 ML GT (13:01)
[2021-05-03 15:38] LABS: Amphetamine Urine VISTA POSITIVE (<1000 ng/mL); Barbiturate Urine VISTA NEGATIVE (< 200 ng/mL); Benzodiazepine Urine VISTA POSITIVE (< 200 ng/mL); Cocaine Urine VISTA NEGATIVE (< 300 ng/mL); Ecstacy Urine VISTA NEGATIVE (< 500 ng/mL); Methadone Urine VISTA NEGATIVE (< 300 ng/mL); PCP Urine VISTA NEGATIVE (< 25 ng/mL); THC Urine VISTA NEGATIVE (< 50 ng/mL); Vista UDS pH Range 5
--- NOTE | 2021-05-03 19:02 | PN.GI_ITS ---
Subjective Subjective Patient underwent upper endoscopy yesterday. She was discovered to have severe damage to her esophagus likely secondary to vomiting from a mid to proximal esophageal stricture. She had a lot of fluid removed from her esophagus. She underwent dilation of the severe esophageal stricture with a TTS balloon dilator. There was no bleeding after the procedure. There was no respiratory distress immediately after the procedure. However, she was not breathing well. She was placed on BiPAP and eventually intubated. She is not able to give a review of systems at this time because she is intubated and sedated. Objective Data Objective Data Vital Signs: Vital Signs Temp Pulse Resp BP Pulse Ox 96.5 F L 73 22 H 115/76 91 05/03/21 16:00 05/03/21 18:00 05/03/21 18:00 05/03/21 18:00 05/03/21 18:00 Oxygen Flow Rate (L/min) 15 Oxygen Delivery Method Mechanical Ventilator Weight: 84 lb 14.047 oz Body Mass Index (BMI) 13.6 Intake & Output: Intake and Output for Last 24 Hours 05/01/21 05/02/21 05/03/21 23:59 23:59 23:59 Intake Total 550.2 / 550.2 3762.06 / 3762.06 Output Total 0 / 0 0 / 0 290 / 290 Balance 550.2 / 550.2 3472.06 / 3472.06 Medical Nutrition Assessment Dietitian: Malnutrition Criteria Met Start: 05/02/21 13:48 Freq: Status: Active Protocol: Document 05/03/21 11:11 BP (Rec: 05/03/21 11:11 BP [id number]) Nutrition Malnutrition Evidence of Malnutrition Exists Yes Malnutrition (severe): Acute Illness/Injury Evidenced By Suboptimal Energy Intake ( Severe),Weight Loss (Severe) Clinical Problem Acute Disease or Injury Related Malnutrition Etiology Severe malnutrition in the context of acute acute disease /injury related to inadequate oral intake, swallowing difficulty Signs/Symptoms as evidenced by pt with esophageal dysphagia due to stricture with pt reporting vomiting shortly after eating, pt reports unintentional wt loss 25#/19% x 5 months, hx of chronic alcohol use likely impacting intake, and BMI 13.7 . Status Active Problem Swallowing Difficulty Etiology related to esophageal stricture Signs/Symptoms as evidenced by pt with esophageal dysphagia requiring NPO status, and pt report inability to tolerate foods PO as shortly after eating experiencing vomiting. Status Active Problem Recommendation Dietitian Recommendations/Changes Vital AF 1.2 at 15 ml per hour with 20 ml flush every 4 hours to provide 432 calories , 27 grams protein, 412 ml total free fluid per day. Will order daily magnesium & phosphorus, continue daily weights. Lab / Micro Data Result Diagrams: 05/03/21 03:15 05/03/21 03:15 Labs: Laboratory Results - last 24 hr 05/03/21 01:00: Troponin I High Sens 179 H*, Triglycerides 155 05/03/21 03:15: Sodium 138, Potassium 3.1 L, Chloride 100, Carbon Dioxide 24.0, Anion Gap 14, BUN 18, Creatinine 0.88, Estim Creat Clear Calc 39.23, Est GFR (MDRD) Af Amer 85, Est GFR (MDRD) Non-Af 70, BUN/Creatinine Ratio 20.5 H, Glucose 96, Calcium 7.6 L, Triglycerides 109, Cholesterol 107, LDL Cholesterol 35, VLDL Cholesterol 22, HDL Cholesterol 50 05/03/21 03:15: WBC 20.4 H, RBC 3.32 L, Hgb 10.2 L, Hct 29.6 L, MCV 89.2, MCH 30.7, MCHC 34.5, RDW Std Deviation 43.2, RDW Coeff of [place] 13.2, Plt Count 239, MPV 11.0, Immature Gran % (Auto) 0.400, Neut % (Auto) 88.7 H, Lymph % (Auto) 5.8 L, [place] % (Auto) 5.0, Eos % (Auto) 0.0, Baso % (Auto) 0.1, Absolute Neuts (auto) 18.1 H, Absolute Lymphs (auto) 1.18, Nucleated RBC % 0.1 05/03/21 03:15: Total Creatine Kinase 35 05/03/21 03:15: Sodium 137, Potassium 3.0 L, Chloride 99, Carbon Dioxide 24.0, Anion Gap 14, BUN 18, Creatinine 0.85, Estim Creat Clear Calc 40.61, Est GFR (MDRD) Af Amer 87, Est GFR (MDRD) Non-Af 72, BUN/Creatinine Ratio 21.1 H, Glucose 97, Calcium 7.4 L, Phosphorus 2.5, Magnesium 1.2 L, Total Bilirubin 1.40 H, AST 11 L, ALT < 6 L, Alkaline Phosphatase 41 L, Total Protein 4.2 L, Albumin 1.7 L, Globulin 2.5, Albumin/Globulin Ratio 0.7 L 05/03/21 03:15: Magnesium Cancelled 05/03/21 07:20: Urine Color Yellow, Urine Clarity Clear, Urine pH 5.0, Ur Specific [place] 1.015, Urine Protein 30 H, Urine Glucose (UA) Normal, Urine Ketones 5 H, Urine Occult Blood Negative, Urine Nitrite Negative, Urine Bilirubin 1 H, Urine Urobilinogen 1 H, Ur Leukocyte Esterase 25 H, Urine RBC 0 SEEN, Urine WBC 0-5 SEEN, Ur Squamous Epith Cells 0-5 SEEN, Urine Bacteria 0 SEEN, Urine Mucus 0 SEEN 05/03/21 07:20: Urine Opiates Screen POSITIVE H, Urine Methadone Screen NE GATIVE, Ur Barbiturates Screen NEGATIVE, Ur Phencyclidine Scrn NEGATIVE, Ur Amphetamines Screen POSITIVE H, U Methamphetamin-MDMA NEGATIVE, U Benzodiazepines Scrn POSITIVE H, Urine Cocaine Screen NEGATIVE, U Cannabinoids Screen NEGATIVE, Ur Drug Screen Comment 05/03/21 07:20: MRSA (PCR) Negative Micro: Microbiology 05/03/21 07:20 Urine Catheter - Catheter Legionella Antigen - Final 05/03/21 07:20 Urine Catheter - Catheter Streptococcus pneumoniae Antigen (M - Final 05/01/21 16:02 Nasal Secretion SARS-CoV-2 Antigen (Rapid) - Final ABG Data ABG results: ABG 05/02/21 23:34 Specimen Type ART Sample Site R Radial pH 7.52 H Bicarbonate Actual 23.2 Total CO2 24 Base Excess 0 O2 Saturation 100 H O2 % 60 ABG pCO2 28.2 L ABG pO2 141 H Mohinder Test Positive Respiration Rate 14 O2 Delivery Device Adult Vent Vent Mode AC Tidal Volume 400 POC PEEP 5 Radiography Diagnostic Testing: Radiology Impression Chest X-Ray 05/02/21 22:16 IMPRESSION: 1. Endotracheal and esophagogastric tubes, as above. 2. Left lower lobe airspace disease. Electronically Signed: Dawson Swann MD ([place]) at 23:08 EDT , Service support , KUB X-Ray 05/02/21 22:30 IMPRESSION: Esophagogastric tube extends to the upper abdomen. Electronically Signed: Dawson Swann MD ([place]) at 23:10 EDT , Service support , Chest X-Ray 05/03/21 00:31 IMPRESSION: 1. Appropriate positioning of right-sided central venous catheter without evidence of pneumothorax. 2. Left basilar airspace consolidation consistent with pneumonia. Electronically Signed: Nayely Singletary MD at 2:08 EDT , Service support , Physical Exam Narrative Intubated and sedated GI normal to inspection, nondistended, normoactive bowel sounds and soft to palpation Rectal Exam: deferred Extremity Peripheral Pulses: Yes pulses 2+ throughout Skin General Skin Exam: no breakdown Assessment & Plan Assessment/Plan (1) Acute hypoxemic respiratory failure: PLAN: Acute hypoxic respiratory failure possibly secondary to aspiration. She is on broad-spectrum antibiotics for sepsis. She is also on pressor therapy. 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 (2) Dysphagia: QUALIFIERS: Dysphagia type: unspecified Qualified Code(s): R13.10 - Dysphagia, unspecified PLAN: Secondary to food impacted in the esophagus and severe esophageal stricture. The food was removed via endoscopy. (3) Chronic alcoholic hepatitis: PLAN: She had alcoholic hepatitis on admission with a low Madrey score to did not require steroids as she did not show any signs of encephalopathy. (4) Esophageal stricture: PLAN: She is on a PPI drip. This can be discontinued tomorrow. I will continue to follow. Charges/Coding Visit Charges Inpatient E&M: 00410 Subs Hosp L3
[2021-05-04] VITALS (54 sets, daily range): BP systolic 69–140; BP diastolic 56–104; PULSE 78–135; RESP 11–20; TEMP 36.2–37.1; O2SAT 90–100
[2021-05-04 03:19] LABS: Absolute Lymphocyte Count 0.64 X10^3/uL (0.83-4.51); Absolute Neutrophil Count 13.8 X10^3/uL (2.0-7.7); Basophil# 0.02 X10^3/uL; Basophil% 0.1 % (0-1); Hematocrit 27.7 % (37-47); Hemoglobin 9.6 g/dL (12.0-15.0); Lymphocyte # 0.64 X10^3/ul (0.83-4.51); Lymphocyte % 4.2 % (19-41); Mean Corp Hgb Conc 34.7 g/dL (32-36); Mean Corpuscular Hgb 31.4 pg (27.0-32.0); Mean Corpuscular Volume 90.5 fL (81-99); Mean Platelet Vol. 10.8 fl (6.2-12.0); Monocyte# 0.58 X10^3/uL; Monocyte% 3.8 % (0-10); NRBC Flagged by Analyzer 0.2 % (0-5); Neutrophil # 13.76 X10^3/uL (2.7-7.7); Neutrophil % 91.1 % (47-70); Platelet Count 218 K/mm3 (150-450); RBC Distribution Width CV 13.9 % (11.6-14.6); RBC Distribution Width SD 45.6 fl (35.1-43.9); Red Blood Count 3.06 M/mm3 (4.2-5.4); White Blood Count 15.1 K/mm3 (4.4-11.0)
[2021-05-04 03:38] LABS: ALB/GLOB Ratio 0.5 RATIO (0.9-2.4); AST(SGOT) 8 U/L (15-37); Alanine Aminotransfer ALT/SGPT 8 U/L (13-56); Albumin, Serum 1.7 g/dL (3.2-5.0); Alkaline Phosphatase 47 U/L (45-117); Anion Gap 9 (5-15); BUN 22 mg/dL (7-18); BUN/Creat Ratio 18.8 RATIO (10-20); Chloride 106 mmol/L (98-107); Creatinine, Serum 1.17 mg/dL (0.55-1.02); EST Glomerular Filtration Rate 50 mL/min (>60); Est Glom Filt Rate - Afr Amer 61 mL/min (>60); Estimated Creatinine Clearance 31.47 ml/min; Globulin 3.1 g/dL (2.2-4.2); Glucose 146 mg/dL (74-106); Magnesium 2.5 mg/dL (1.6-2.6); Phosphorus 1.3 mg/dL (2.5-4.9); Potassium 4.5 mmol/L (3.5-5.1); Protein, Total 4.8 g/dL (6.4-8.2); Sodium Level 139 mmol/L (136-145)
[2021-05-04] MEDS: Ipratropium/Albuterol Sulfate 3 ML AMPUL.NEB INHALATION ×4 (07:12→19:03)
--- NOTE | 2021-05-04 07:32 | PN.CC_ITS ---
Assessment & Plan Assessment/Plan (1) Acute hypoxemic respiratory failure: PLAN: RECOMMENDATIONS: 1. Continue patient on assist control mode mechanical ventilation. 2. Plan for paired spontaneous awakening and breathing trial beginning tomorrow. 3. Continue current sedation regimen. 4. Continue PPI therapy as ordered. 5. Continue thiamine and folate. 6. Continue empiric antimicrobials. 7. Aggressive electrolyte repletion. 8. Obtain and send sputum for culture. Check MRSA screen along with strep and urine Legionella antigens. 9. Stop continuous IV fluids. IMPRESSIONS: 1. Acute hypoxemic respiratory failure The patient required intubation after she developed respiratory distress and subsequent failure following an upper endoscopy. It is certainly plausible than an acute aspiration event along with medications used for the procedure may have been contributing factors for her decompensation. The patient does appear to have a left basilar airspace opacity on chest imaging. Accordingly, the patient will be continued on empiric antimicrobials. Will obtain and send sputum for culture. Ventilator requirements are minimal. Tube feeds can be initiated today from my perspective. 2. Distributive shock The patient became hypotensive largely as a consequence of the medications being utilized to sedate her while on the vent. She is overall net positive for the hospitalization. I agree with continuing Levophed to maintain mean arterial pressure at or above 65 mmHg. This is slowly improving. 3. Hypokalemia/hypomagnesemia/refeeding syndrome Aggressive electrolyte repletion as ordered. The patient will need to be monitored closely for the development of refeeding syndrome. 4. Troponin elevation Likely secondary to demand ischemia. Cardiology is currently following. Continue medical management per their discretion. 5. Gastritis/esophageal stricture status post dilation Continue PPI therapy per GI recommendations. No free air on chest imaging to suggest esophageal perforation. 5. History of chronic alcohol dependency/failure to thrive/malnutritio n/history of alcoholic hepatitis Complicates care, management, recovery and prognosis. Continue supportive measures as noted above. Some concern the patient may develop DTs while on the ventilator. Continue to monitor. May need as needed Ativan TIME: 37 minutes of critical care time, independent of procedures, was spent addressing the patient's acute hypoxemic respiratory failure, distributive shock, hypokalemia, troponin elevation, gastritis, review of all data and collaboration with the care team. (6 AM to 7 AM) Subjective Subjective Patient did okay overnight. No acute issues were reported. Patient's Levophed has been able to be weaned from 5-->2. Patient was unable to tolerate a spontaneous breathing trial this morning. Patient has tolerated trophic feedings. Objective Data Objective Data Vital Signs: Vital Signs Temp Pulse Resp BP Pulse Ox 37.1 C 79 14 119/90 H 97 05/04/21 04:00 05/04/21 07:13 05/04/21 07:13 05/04/21 06:00 05/04/21 07:13 Oxygen Flow Rate (L/min) 15 Oxygen Delivery Method Mechanical Ventilator Weight: 42.9 kg Body Mass Index (BMI) 13.6 Intake & Output: Intake and Output for Last 24 Hours 05/02/21 05/03/21 05/04/21 23:59 23:59 23:59 Intake Total 3911.11 / 3946.51 282.31 / 282.31 Output Total 0 / 0 290 / 290 Balance 3621.11 / 3656.51 282.31 / 282.31 Medical Nutrition Assessment Dietitian: Malnutrition Criteria Met Start: 05/02/21 13:48 Freq: Status: Active Protocol: Document 05/03/21 11:11 BP (Rec: 05/03/21 11:11 BP [id number]) Nutrition Malnutrition Evidence of Malnutrition Exists Yes Malnutrition (severe): Acute Illness/Injury Evidenced By Suboptimal Energy Intake ( Severe),Weight Loss (Severe) Clinical Problem Acute Disease or Injury Related Malnutrition Etiology Severe malnutrition in the context of acute acute disease /injury related to inadequate oral intake, swallowing difficulty Signs/Symptoms as evidenced by pt with esophageal dysphagia due to stricture with pt reporting vomiting shortly after eating, pt reports unintentional wt loss 25#/19% x 5 months, hx of chronic alcohol use likely impacting intake, and BMI 13.7 . Status Active Problem Swallowing Difficulty Etiology related to esophageal stricture Signs/Symptoms as evidenced by pt with esophageal dysphagia requiring NPO status, and pt report inability to tolerate foods PO as shortly after eating experiencing vomiting. Status Active Problem Recommendation Dietitian Recommendations/Changes Vital AF 1.2 at 15 ml per hour with 20 ml flush every 4 hours to provide 432 calories , 27 grams protein, 412 ml total free fluid per day. Will order daily magnesium & phosphorus, continue daily weights. Lab / Micro Data Result Diagrams: 05/04/21 03:00 05/04/21 03:00 Labs: Laboratory Results - last 24 hr 05/03/21 03:15: Total Creatine Kinase 35 05/03/21 03:15: Magnesium Cancelled 05/03/21 07:20: Urine Color Yellow, Urine Clarity Clear, Urine pH 5.0, Ur Specific [place] 1.015, Urine Protein 30 H, Urine Glucose (UA) Normal, Urine Ketones 5 H, Urine Occult Blood Negative, Urine Nitrite Negative, Urine Bilirubin 1 H, Urine Urobilinogen 1 H, Ur Leukocyte Esterase 25 H, Urine RBC 0 SEEN, Urine WBC 0-5 SEEN, Ur Squamous Epith Cells 0-5 SEEN, Urine Bacteria 0 SEEN, Urine Mucus 0 SEEN 05/03/21 07:20: Urine Opiates Screen POSITIVE H, Urine Methadone Screen NEGATIVE, Ur Barbiturates Screen NEGATIVE, Ur Phencyclidine Scrn NEGATIVE, Ur Amphetamines Screen POSITIVE H, U Methamphetamin-MDMA NEGATIVE, U Benzodiazepines Scrn POSITIVE H, Urine Cocaine Screen NEGATIVE, U Cannabinoids Screen NEGATIVE, Ur Drug Screen Comment 05/03/21 07:20: MRSA (PCR) Negative 05/04/21 03:00: Sodium 139, Potassium 4.5, Chloride 106, Carbon Dioxide 24.0, Anion Gap 9, BUN 22 H, Creatinine 1.17 H, Estim Creat Clear Calc 31.47, Est GFR (MDRD) Af Amer 61, Est GFR (MDRD) Non-Af 50 L, BUN/Creatinine Ratio 18.8, Glucose 146 H, Calcium 8.0 L, Phosphorus 1.3 L, Magnesium 2.5, Total Bilirubin 0.70, AST 8 L, ALT 8 L, Alkaline Phosphatase 47, Total Protein 4.8 L, Albumin 1.7 L, Globulin 3.1, Albumin/Globulin Ratio 0.5 L 05/04/21 03:00: WBC 15.1 H, RBC 3.06 L, Hgb 9.6 L, Hct 27.7 L, MCV 90.5, MCH 31.4, MCHC 34.7, RDW Std Deviation 45.6 H, RDW Coeff of [place] 13.9, Plt Count 218, MPV 10.8, Immature Gran % (Auto) 0.800, Neut % (Auto) 91.1 H, Lymph % (Auto) 4.2 L, [place] % (Auto) 3.8, Eos % (Auto) 0.0, Baso % (Auto) 0.1, Absolute Neuts (auto) 13.8 H, Absolute Lymphs (auto) 0.64 L, Nucleated RBC % 0.2 Micro: Microbiology 05/03/21 07:20 Urine Catheter - Catheter Legionella Antigen - Final 05/03/21 07:20 Urine Catheter - Catheter Streptococcus pneumoniae Antigen (M - Final 05/01/21 16:02 Nasal Secretion SARS-CoV-2 Antigen (Rapid) - Final Physical Exam Const General Appearance: frail, intubated and patient mechanically ventilated Nutritional Appearance: cachectic HEENT normocephalic and head/scalp atraumatic HEENT Narrative: Temporal wasting present Mouth: endotracheal tube in place and OG tube in place Eyes PERRL and EOMs intact bilaterally Neck supple General: trachea midline and CVC in place Chest inspection of chest normal Chest: symmetrical chest wall rise; Negative for crepitus Resp Auscultation: Negative for rales, rhonchi or wheezes Cardio regular rate and regular rhythm GI normal to inspection, nondistended, normoactive bowel sounds Extremity no clubbing, cyanosis or edema Skin no rashes or lesions noted Neuro Sensorium / Orientation: sedated on vent Charges/Coding Procedures Hospitalists Procedures: 93173 Critial Care 1st Hr
[2021-05-04 09:08] LABS: Vitamin B12 698 pg/mL (211-911)
[2021-05-04] MEDS: Chlorhexidine 15 ML PO ×2 (10:21→19:46)
[2021-05-04] MEDS: Aspirin 81 MG TAB.CHEW PO (10:21)
[2021-05-04] MEDS: Senna/Docusate Sodium 1 Tablet 2 TABLET PO ×2 (10:24→21:05)
[2021-05-04] MEDS: Enoxaparin 40 MG/0.4 ML Syringe SC (10:24)
--- NOTE | 2021-05-04 11:41 | PCM.PN.HOSP ---
Subjective Subjective Patient was extubated this morning. She is having persistent nausea and vomiting. She remains encephalopathic. Objective Data Objective Data Vital Signs: Vital Signs Temp Pulse Resp BP Pulse Ox 97.1 F L 103 H 14 82/63 L 98 05/04/21 11:34 05/04/21 11:34 05/04/21 11:34 05/04/21 11:34 05/04/21 11:34 Oxygen Flow Rate (L/min) 55 Oxygen Delivery Method Mechanical Ventilator Weight: 42.9 kg Body Mass Index (BMI) 13.6 Intake & Output: Intake and Output for Last 24 Hours 05/02/21 05/03/21 05/04/21 23:59 23:59 23:59 Intake Total 3911.11 / 3946.51 768.59 / 768.59 Output Total 0 / 0 290 / 290 35 / 35 Balance 3621.11 / 3656.51 733.59 / 733.59 Medical Nutrition Assessment Dietitian: Malnutrition Criteria Met Start: 05/02/21 13:48 Freq: Status: Active Protocol: Document 05/04/21 10:57 SOLO (Rec: 05/04/21 10:57 SOLO [id number]) Nutrition Malnutrition Evidence of Malnutrition Exists Yes Malnutrition (severe): Acute Illness/Injury Evidenced By Suboptimal Energy Intake ( Severe),Weight Loss (Severe), Physical Changes (Severe) Clinical Problem Acute Disease or Injury Related Malnutrition Etiology Severe malnutrition in the context of acute acute disease /injury related to inadequate oral intake, swallowing difficulty Signs/Symptoms as evidenced by pt with esophageal dysphagia due to stricture with pt reporting vomiting shortly after eating, 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 Status Active Problem Swallowing Difficulty Etiology related to esophageal stricture Signs/Symptoms as evidenced by pt with esophageal dysphagia requiring NPO status, and pt report inability to tolerate foods PO as shortly after eating experiencing vomiting. Status Active Problem Recommendation Dietitian Recommendations/Changes Will order Vital AF 1.2 at goal rate 50 ml/hr with 75 ml H2O flush every 4 hours - increase by 15 ml every 8-10 hrs as pt tolerated until goal rate achieved. TF at goal rate will provide ~ 1440 corry/ 90 gm pro/ 973 ml free water/ day. Will order daily magnesium & phosphorus, continue daily weights. Lab / Micro Data Result Diagrams: 05/04/21 03:00 05/04/21 03:00 Labs: Laboratory Results - last 24 hr 05/02/21 06:00: Vitamin B12 698 05/03/21 07:20: Urine Opiates Screen POSITIVE H, Urine Methadone Screen NEGATIVE, Ur Barbiturates Screen NEGATIVE, Ur Phencyclidine Scrn NEGATIVE, Ur Amphetamines Screen POSITIVE H, U Methamphetamin-MDMA NEGATIVE, U Benzodiazepines Scrn POSITIVE H, Urine Cocaine Screen NEGATIVE, U Cannabinoids Screen NEGATIVE 05/03/21 07:20: MRSA (PCR) Negative 05/04/21 03:00: Sodium 139, Potassium 4.5, Chloride 106, Carbon Dioxide 24.0, Anion Gap 9, BUN 22 H, Creatinine 1.17 H, Estim Creat Clear Calc 31.47, Est GFR (MDRD) Af Amer 61, Est GFR (MDRD) Non-Af 50 L, BUN/Creatinine Ratio 18.8, Glucose 146 H, Calcium 8.0 L, Phosphorus 1.3 L, Magnesium 2.5, Total Bilirubin 0.70, AST 8 L, ALT 8 L, Alkaline Phosphatase 47, Total Protein 4.8 L, Albumin 1.7 L, Globulin 3.1, Albumin/Globulin Ratio 0.5 L 05/04/21 03:00: WBC 15.1 H, RBC 3.06 L, Hgb 9.6 L, Hct 27.7 L, MCV 90.5, MCH 31.4, MCHC 34.7, RDW Std Deviation 45.6 H, RDW Coeff of Richard 13.9, Plt Count 218, MPV 10.8, Immature Gran % (Auto) 0.800, Neut % (Auto) 91.1 H, Lymph % (Auto) 4.2 L, [place] % (Auto) 3.8, Eos % (Auto) 0.0, Baso % (Auto) 0.1, Absolute Neuts (auto) 13.8 H, Absolute Lymphs (auto) 0.64 L, Nucleated RBC % 0.2 Micro: Microbiology 05/03/21 07:20 Urine Catheter - Catheter Legionella Antigen - Final 05/03/21 07:20 Urine Catheter - Catheter Streptococcus pneumoniae Antigen (M - Final 05/01/21 16:02 Nasal Secretion SARS-CoV-2 Antigen (Rapid) - Final Physical Exam Const alert Constitutional Narrative: Obese upper middle-aged white female who appears older than stated age, lying in bed, intubated on a ventilator, awakens on exam Exam Limitations: other limitations HEENT head/scalp atraumatic and moist oral mucous membranes HEENT Narrative: ET tube in place Head and Scalp: normocephalic Eyes PERRL, EOMs intact bilaterally and conjunctivae normal Neck no lymphadenopathy, supple and no JVD Neck Narrative: Trachea midline, no noted thyroid enlargement Resp normal respiratory effort, no retractions and no use of accessory muscles Resp Narrative: Right base, diffusely diminished Auscultation: rhonchi; Negative for crackles, rales or wheezes Cardio regular rhythm, S1 normal heart sound, S2 normal heart sound, no murmurs, no rub, no gallops, no clicks and no JVD Cardio Narrative: Mildly tachycardic GI normal to inspection, nondistended, normoactive bowel sounds, soft to palpation, non-tender and non-distended Extremity normal to inspection and no clubbing, cyanosis or edema General Extremity: edema Peripheral Pulses: Yes pulses 2+ throughout Skin no rashes or lesions noted, no wounds, skin turgor normal, no jaundice, no petechiae and no mottling Skin Narrative: Pale Neuro moves all extremities Neuro Narrative: Generalized weakness Psych Psych Narrative: Unable to assess Assessment & Plan Assessment/Plan (1) Acute hypoxemic respiratory failure: (2) Abnormal cardiac enzyme level: (3) Abnormal electrocardiogram: (4) Anemia: (5) Esophagitis: (6) Esophageal stricture: PLAN: Acute hypoxic respiratory failure secondary to probable aspiration -Patient intubated on 05/02/2021 -Patient remains intubated and on ventilator -Spontaneous breathing trial tomorrow -Continue empiric antibiotics -Sputum cultures pending -Urine strep pneumo and Legionella antigens pending -MRSA screen pending -Chest x-ray shows left basilar infiltrate -Pulmonary medicine is following Distributive shock -Secondary to sedation medications -Continue Levophed and wean as possible to maintain MAP of 65 mmHg Hypokalemia/hypophosphatemia/hypomagnesemia -Suspect related to refeeding syndrome with history of alcohol abuse -Continue tube feed -Aggressively replace electrolytes -Magnesium and potassium have normalized -Phos bolus ordered for today DEANDRE -Mild -Suspect related to hypotension -Anticipate improvement with improved blood pressures -Repeat BMP in a.m. Troponin elevation -Suspect NSTEMI type II secondary to demand ischemia -Echocardiogram is pending -Continue aspirin -Cardiology is following Gastritis/esophageal stricture -GI is following -Continue PPI -Discontinue drip and start IV push twice daily today -Status post dilation on 05/02/2021 -Appreciate GI input Acute anemia secondary to GI loss -Suspect related to above -Continue PPI -Monitor hemoglobin -Counts are currently stable Alcohol abuse -Patient has a history of chronic alcohol use and drinks half a bottle of liquor every day -Last drink was 4 days prior to admission Tobacco abuse No documented history of COPD but would anticipate lung disease at baseline -Aerosols -Would recommend outpatient pulmonology follow-up after discharge -Recommend smoking cessation DVT prophylaxis -SCDs -Enoxaparin CODE STATUS -Full code Charges/Coding Visit Charges Inpatient E&M: 90440 Subs Hosp L2
--- NOTE | 2021-05-04 13:11 | PN.CARD_ITS ---
Subjective Subjective The patient remains sedated and mechanically intubated/ventilated. Objective Data Vital Signs: Vital Signs Temp Pulse Resp BP Pulse Ox 97.1 F L 99 14 80/61 L 97 05/04/21 11:34 05/04/21 12:00 05/04/21 12:00 05/04/21 12:00 05/04/21 12:00 Oxygen Flow Rate (L/min) 55 Oxygen Delivery Method Mechanical Ventilator Weight: 94 lb 9.253 oz Body Mass Index (BMI) 13.6 Intake & Output: Intake and Output for Last 24 Hours 05/02/21 05/03/21 05/04/21 23:59 23:59 23:59 Intake Total 3911.11 / 3946.51 768.59 / 768.59 Output Total 0 / 0 290 / 290 35 / 35 Balance 3621.11 / 3656.51 733.59 / 733.59 Lab / Micro Data Result Diagrams: 05/04/21 03:00 05/04/21 03:00 Labs: Laboratory Results - last 24 hr 05/02/21 06:00: Vitamin B12 698 05/03/21 07:20: Urine Opiates Screen POSITIVE H, Urine Methadone Screen NEGATIVE, Ur Barbiturates Screen NEGATIVE, Ur Phencyclidine Scrn NEGATIVE, Ur Amphetamines Screen POSITIVE H, U Methamphetamin-MDMA NEGATIVE, U Benzodiazepines Scrn POSITIVE H, Urine Cocaine Screen NEGATIVE, U Cannabinoids Screen NEGATIVE 05/04/21 03:00: Sodium 139, Potassium 4.5, Chloride 106, Carbon Dioxide 24.0, Anion Gap 9, BUN 22 H, Creatinine 1.17 H, Estim Creat Clear Calc 31.47, Est GFR (MDRD) Af Amer 61, Est GFR (MDRD) Non-Af 50 L, BUN/Creatinine Ratio 18.8, Glucose 146 H, Calcium 8.0 L, Phosphorus 1.3 L, Magnesium 2.5, Total Bilirubin 0.70, AST 8 L, ALT 8 L, Alkaline Phosphatase 47, Total Protein 4.8 L, Albumin 1.7 L, Globulin 3.1, Albumin/Globulin Ratio 0.5 L 05/04/21 03:00: WBC 15.1 H, RBC 3.06 L, Hgb 9.6 L, Hct 27.7 L, MCV 90.5, MCH 31.4, MCHC 34.7, RDW Std Deviation 45.6 H, RDW Coeff of Richard 13.9, Plt Count 218, MPV 10.8, Immature Gran % (Auto) 0.800, Neut % (Auto) 91.1 H, Lymph % (Auto) 4.2 L, [place] % (Auto) 3.8, Eos % (Auto) 0.0, Baso % (Auto) 0.1, Absolute Neuts (auto) 13.8 H, Absolute Lymphs (auto) 0.64 L, Nucleated RBC % 0.2 Micro: Microbiology 05/03/21 06:55 Sputum, Induced/Lukens Gram Stain - Final 05/03/21 06:55 Sputum, Induced/Lukens Respiratory Culture - Preliminary Appears to be normal respiratory jose. Further studies to follow. Cardiology Labs/Tests 05/04/21 03:00: Sodium 139, Potassium 4.5, Chloride 106, Carbon Dioxide 24.0, Anion Gap 9, BUN 22 H, Creatinine 1.17 H, Est GFR (MDRD) Af Amer 61, Est GFR (M DRD) Non-Af 50 L, BUN/Creatinine Ratio 18.8, Glucose 146 H, Calcium 8.0 L, Phosphorus 1.3 L, Magnesium 2.5, Total Bilirubin 0.70 05/04/21 03:00: WBC 15.1 H, RBC 3.06 L, Hgb 9.6 L, Hct 27.7 L, MCV 90.5, MCH 31.4, MCHC 34.7, Plt Count 218, MPV 10.8, Immature Gran % (Auto) 0.800, Neut % (Auto) 91.1 H, Lymph % (Auto) 4.2 L, [place] % (Auto) 3.8, Eos % (Auto) 0.0, Baso % (Auto) 0.1, Absolute Neuts (auto) 13.8 H, Nucleated RBC % 0.2 Rhythm: Sinus rhythm Physical Exam Narrative This is a 60-year-old white female who appears to be older than stated age who appears somewhat lethargic wearing O2 support. HEENT normocephalic and head/scalp atraumatic Eyes PERRL and EOMs intact bilaterally Neck no JVD Resp Resp Narrative: scattered upper airway sounds Cardio regular rate, regular rhythm, S1 normal heart sound and S2 normal heart sound GI normal to inspection, nondistended, normoactive bowel sounds Extremity no pedal edema Skin no rashes or lesions noted Neuro moves all extremities Assessment & Plan Assessment/Plan (1) Abnormal cardiac enzyme level: PLAN: The patient does have an abnormal cardiac enzyme [id number] troponin I level. These levels are obtained post her EGD/dilatation procedure during her hypoxemia requiring supplemental O2 support. She did not appear to have ongoing classic acute coronary syndrome symptoms at that the time of her original consultation based upon lack of classic symptoms, etc.. Thus it is unclear whether these cardiac enzyme changes are related to a primary cardiovascular event versus being secondary to a noncardiovascular event such as her hypoxemia requiring O2 therapy. Her cardiac rhythm as remained sinus. He follow up ECG has demonstrated no new acute ECG changes. An echocardiogram is pending. (2) Abnormal electrocardiogram: PLAN: The patient does have an abnormal electrocardiogram. The patient has had previous ECGs that have demonstrated ST/T wave changes. The follow up ECG appears somewhat less prominent with no obvious new acute ECG changes. (3) Hypoxemia: PLAN: The etiology of the hypoxemia may be secondary to a combination of factors. She is now mechanically intubated / ventilated. She will continue evaluation / care per internal medicine and pulmonology. (4) Esophageal stricture: PLAN: She is now status EGD / dilatation. She will be followed by internal medicine and gastroenterology. (5) Adult failure to thrive: PLAN: She does appear to have a failure to thrive course. Her alcohol history may be a contributing factor to her failure to thrive. (6) HLD (hyperlipidemia): QUALIFIERS: Hyperlipidemia type: unspecified Qualified Code(s): E78.5 - Hyperlipidemia, unspecified PLAN: Her lipid labs were reviewed and appear to be within acceptable limits. (7) Benign essential HTN: PLAN: Her blood pressure has decreased. She has now required IV vasopressor support. (8) Anemia: PLAN: Her hemoglobin has decreased. She is currently on a PPI. Depending upon her future hemoglobin level she may require PRBC transfusion. She is being followed by internal medicine and pulmonology/critical care [facility]. Addt'l Comments The patient's case was discussed with Dr. Garcia. This note was generated using a voice recognition system and there may be in correct words, spelling or punctuation that were not noted when reviewing the office note prior to saving.
[2021-05-04] MEDS: 0.9% Normal Saline 1,000 ML 999 ML IV (14:10)
[2021-05-05] VITALS (33 sets, daily range): BP systolic 105–161; BP diastolic 83–115; PULSE 80–869; RESP 10–26; TEMP 36.2–36.9; O2SAT 92–100
[2021-05-05 06:12] LABS: Anion Gap 11 (5-15); BUN 20 mg/dL (7-18); BUN/Creat Ratio 21.7 RATIO (10-20); Calcium,Total 7.9 mg/dL (8.5-10.1); Chloride 109 mmol/L (98-107); Creatinine, Serum 0.92 mg/dL (0.55-1.02); EST Glomerular Filtration Rate 66 mL/min (>60); Est Glom Filt Rate - Afr Amer 80 mL/min (>60); Estimated Creatinine Clearance 44.17 ml/min; Glucose 163 mg/dL (74-106); Potassium 3.2 mmol/L (3.5-5.1); Sodium Level 143 mmol/L (136-145)
[2021-05-05] MEDS: 0.9% Normal Saline 1,000 ML 999 ML IV (06:22)
[2021-05-05 06:25] LABS: Absolute Lymphocyte Count 0.62 X10^3/uL (0.83-4.51); Absolute Neutrophil Count 9.6 X10^3/uL (2.0-7.7); Basophil# 0.01 X10^3/uL; Basophil% 0.1 % (0-1); Hematocrit 25.8 % (37-47); Hemoglobin 8.9 g/dL (12.0-15.0); Lymphocyte # 0.62 X10^3/ul (0.83-4.51); Lymphocyte % 5.7 % (19-41); Mean Corp Hgb Conc 34.5 g/dL (32-36); Mean Corpuscular Hgb 31.3 pg (27.0-32.0); Mean Corpuscular Volume 90.8 fL (81-99); Mean Platelet Vol. 11.2 fl (6.2-12.0); Monocyte# 0.59 X10^3/uL; Monocyte% 5.4 % (0-10); NRBC Flagged by Analyzer 0.4 % (0-5); Neutrophil # 9.57 X10^3/uL (2.7-7.7); Neutrophil % 87.9 % (47-70); Platelet Count 191 K/mm3 (150-450); RBC Distribution Width CV 14.4 % (11.6-14.6); RBC Distribution Width SD 47.7 fl (35.1-43.9); Red Blood Count 2.84 M/mm3 (4.2-5.4); White Blood Count 10.9 K/mm3 (4.4-11.0)
[2021-05-05 06:41] LABS: Allen Test Positive; Base Excess -4 mmol/L (-2 to +2); Bicarbonate 20.8 mmol/L (22-26); Blood Gas Specimen Type ART; FI02 30; Mode AC; O2 Delivery Device Adult Vent; PEEP 5; PO2 69 mmHG (75-100); PS 5; SITE L Radial; SO2 94 % (95-99); Total Carbon Dioxide 22 mmol/L; pCO2 31.5 mmHg (35-45); pH 7.43 (7.35-7.45)
[2021-05-05] MEDS: Potassium Chloride Oral Soln 20 MEQ/15 ML UDC 40 MEQ PO (07:00)
[2021-05-05] MEDS: Potassium Chloride 10mEq/100mL 10 MEQ/100 ML IV.SOLN. 100 MEQ IV BOLUS ×4 (07:00→11:02)
[2021-05-05] MEDS: Ipratropium/Albuterol Sulfate 3 ML AMPUL.NEB INHALATION ×4 (07:02→19:55)
--- NOTE | 2021-05-05 07:52 | PN.CC_ITS ---
Assessment & Plan Assessment/Plan (1) Acute hypoxemic respiratory failure: PLAN: RECOMMENDATIONS: 1. Probable extubation later today 2. Bedside swallow evaluation prior to any p.o. intake 3. Defer to GI on consistencies. 4. Continue PPI therapy as ordered. 5. Continue with empiric antimicrobials 6. Increase activity as tolerated IMPRESSIONS: 1. Acute hypoxemic respiratory failure The patient required intubation after she developed respiratory distress and subsequent failure following an upper endoscopy. It is certainly plausible than an acute aspiration event along with medications used for the procedure may have been contributing factors for her decompensation. The patient does appear to have a left basilar airspace opacity on chest imaging. Accordingly, the patient will be continued on empiric antimicrobials. Anticipate extubation later today once patient has had more time to metabolize fentanyl. Ventilator requirements are minimal. Tube feeds can be initiated today from my perspective. 2. Distributive shock Resolved. The patient became hypotensive largely as a consequence of the medications being utilized to sedate her while on the vent. She is overall net positive for the hospitalization. 3. Hypokalemia/hypomagnesemia/refeeding syndrome Aggressive electrolyte repletion as ordered. The patient will need to be monitored closely for the development of refeeding syndrome. 4. Troponin elevation Likely secondary to demand ischemia. Cardiology is currently following. Continue medical management per their discretion. 5. Gastritis/esophageal stricture status post dilation Continue PPI therapy per GI recommendations. No free air on chest imaging to suggest esophageal perforation. 5. History of chronic alcohol dependency/failure to thrive/malnutr ition/history of alcoholic hepatitis Complicates care, management, recovery and prognosis. Continue supportive measures as noted above. Some concern the patient may develop DTs while on the ventilator. Continue to monitor. May need as needed Ativan following extubation. TIME: 35 minutes of critical care time, independent of procedures, was spent addressing the patient's acute hypoxemic respiratory failure, distributive shock, hypokalemia, troponin elevation, gastritis, review of all data and collaboration with the care team. (5:20 AM to 6:20 AM) Subjective Subjective Patient did well overnight. Patient has remained off of Levophed since yesterday. Patient was tolerating tube feeds. No obvious bleeding has been noted. Patient did have a spontaneous breathing trial this morning and was able to pass after 1 hour. However, patient had to be stimulated frequently secondary to apnea. Patient remains on the ventilator for now until fentanyl has more time to wear off. Objective Data Objective Data Vital Signs: Vital Signs Temp Pulse Resp BP Pulse Ox 36.2 C L 81 14 128/105 H 100 05/05/21 00:00 05/05/21 07:00 05/05/21 07:00 05/05/21 07:00 05/05/21 07:00 Oxygen Flow Rate (L/min) 55 Oxygen Delivery Method Mechanical Ventilator Weight: 42.5 kg Body Mass Index (BMI) 13.6 Intake & Output: Intake and Output for Last 24 Hours 05/03/21 05/04/21 05/05/21 23:59 23:59 23:59 Intake Total 3911.11 / 3946.51 2557.7533 / 2959.6533 796.9 / 796.9 Output Total 290 / 290 285 / 385 160 / 160 Balance 3621.11 / 3656.51 2272.7533 / 2574.6533 636.9 / 636.9 Medical Nutrition Assessment Dietitian: Malnutrition Criteria Met Start: 05/02/21 13:48 Freq: Status: Active Protocol: Document 05/04/21 10:57 SOLO (Rec: 05/04/21 10:57 [facility] [id number]) Nutrition Malnutrition Evidence of Malnutrition Exists Yes Malnutrition (severe): Acute Illness/Injury Evidenced By Suboptimal Energy Intake ( Severe),Weight Loss (Severe), Physical Changes (Severe) Clinical Problem Acute Disease or Injury Related Malnutrition Etiology Severe malnutrition in the context of acute acute disease /injury related to inadequate oral intake, swallowing difficulty Signs/Symptoms as evidenced by pt with esophageal dysphagia due to stricture with pt reporting vomiting shortly after eating, 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 Status Active Problem Swallowing Difficulty Etiology related to esophageal stricture Signs/Symptoms as evidenced by pt with esophageal dysphagia requiring NPO status, and pt report inability to tolerate foods PO as shortly after eating experiencing vomiting. Status Active Problem Recommendation Dietitian Recommendations/Changes Will order Vital AF 1.2 at goal rate 50 ml/hr with 75 ml H2O flush every 4 hours - increase by 15 ml every 8-10 hrs as pt tolerated until goal rate achieved. TF at goal rate will provide ~ 1440 corry/ 90 gm pro/ 973 ml free water/ day. Will order daily magnesium & phosphorus, continue daily weights. Lab / Micro Data Result Diagrams: 05/05/21 04:05 05/05/21 04:05 Labs: Laboratory Results - last 24 hr 05/02/21 06:00: Vitamin B12 698 05/05/21 04:05: Sodium 143, Potassium 3.2 L, Chloride 109 H, Carbon Dioxide 23.0, Anion Gap 11, BUN 20 H, Creatinine 0.92, Estim Creat Clear Calc 44.17, Est GFR (MDRD) Af Amer 80, Est GFR (MDRD) Non-Af 66, BUN/Creatinine Ratio 21.7 H, Glucose 163 H, Calcium 7.9 L, Phosphorus 3.0, Magnesium 2.0 05/05/21 04:05: WBC 10.9, RBC 2.84 L, Hgb 8.9 L, Hct 25.8 L, MCV 90.8, MCH 31.3, MCHC 34.5, RDW Std Deviation 47.7 H, RDW Coeff of Richard 14.4, Plt Count 191, MPV 11.2, Immature Gran % (Auto) 0.900, Neut % (Auto) 87.9 H, Lymph % (Auto) 5.7 L, [place] % (Auto) 5.4, Eos % (Auto) 0.0, Baso % (Auto) 0.1, Absolute Neuts (auto) 9.6 H, Absolute Lymphs (auto) 0.62 L, Nucleated RBC % 0.4 Micro: Microbiology 05/03/21 06:55 Sputum, Induced/Lukens Gram Stain - Final 05/03/21 06:55 Sputum, Induced/Lukens Respiratory Culture - Preliminary Appears to be normal respiratory jose. Further studies to follow. 05/03/21 07:20 Urine Catheter - Catheter Legionella Antigen - Final 05/03/21 07:20 Urine Catheter - Catheter Streptococcus pneumoniae Antigen (M - Final 05/01/21 16:02 Nasal Secretion SARS-CoV-2 Antigen (Rapid) - Final ABG Data ABG results: ABG 05/05/21 06:27 Specimen Type ART Sample Site L Radial pH 7.43 Bicarbonate Actual 20.8 L Total CO2 22 Base Excess -4 L O2 Saturation 94 L O2 % 30 ABG pCO2 31.5 L ABG pO2 69 L Mohinder Test Positive O2 Delivery Device Adult Vent Vent Mode AC POC PEEP 5 POC Pressure Suppt 5 Radiography Diagnostic Testing: Radiology Impression Echocardiogram 05/02/21 13:33 Interpretation Summary The study was technically difficult. Contrast injection was performed. Left ventricular systolic function is hyperdynamic. The estimated ejection fraction is 75 %. Severe concentric left ventricular hypertrophy. Trivial mitral valve insufficiency. Trivial tricuspid valve insufficiency. Epicardial fat. Right ventricular systolic pressure estimated to be 42 mmHg. Diastolic function is indeterminate. Ordering Physician: Azael Wick Performed By: Clare Gold, NONI, RVT Physical Exam Const General Appearance: frail, intubated and patient mechanically ventilated Nutritional Appearance: cachectic HEENT normocephalic and head/scalp atraumatic HEENT Narrative: Temporal wasting present Mouth: endotracheal tube in place and OG tube in place Eyes PERRL and EOMs intact bilaterally Neck supple General: trachea midline and CVC in place Chest inspection of chest normal Chest: symmetrical chest wall rise; Negative for crepitus Resp Auscultation: Negative for rales, rhonchi or wheezes Cardio regular rate and regular rhythm GI normal to inspection, nondistended, normoactive bowel sounds Extremity no clubbing, cyanosis or edema Skin no rashes or lesions noted Neuro Sensorium / Orientation: sedated on vent Charges/Coding Procedures Hospitalists Procedures: 21493 Critial Care 1st Hr
[2021-05-05] MEDS: Ondansetron 4 MG/2 ML Vial IV (09:23)
[2021-05-05] MEDS: Enoxaparin 40 MG/0.4 ML Syringe SC (10:10)
[2021-05-05] MEDS: Chlorhexidine 15 ML PO (10:10)
[2021-05-05] MEDS: 0.9% Saline Lock 10 ML Syringe IV (10:12)
--- NOTE | 2021-05-05 12:25 | CASEMGMT ---
Addendum entered by Maxine Leonard 05/05/21 12:46: SW did also speak w/pt about prior level of function and anticipated discharge plan. Pt alert, though at times stating cannot answer SW questions. She was attempting to call her niece Flaca but could not get her cell phone to work. SW explained would call Flaca, with her permission, after we spoke. Pt agreeable. PCP: Pt states cannot remember. As per Flaca, pt has not been to the doctor in 6 months, has not taken her medications in 6 months. She states has made appointments for pt and pt does not go. She states Pt did make herself an appointment with [facility] recently. Specialists: Pt again has not been to a doctor in 6 months. Pharmacy: SW did not ask pt, asked niece. Pt has not been taking her medications for 6 months, so does not have a current pharmacy as per maria del carmen. Insurance: [facility] [employer] [facility]: Niece Flaca, daughter Martha. Pt states has a son also but does not know where he is. LW/POA: As per pt, Flaca is POA. SW did let both pt and niece know we do not have papers on file here. Living arrangements/prior level of care: Pt states lives with a friend named Annita. Niece states pt has two roommates, Annita is currently in the hospital. As per pt, there are a few steps in the home and she can normally navigate them. Pt describes that she furniture walks and uses a cane. She states Annita helps her shower, set up meds, takes her to appointments. She states they share cooking and cleaning. As per nielicia however, pt has taken 2 showers in last 6 months, is not taking her medications, and is not attending appointments. Niece Flaca does check on pt 1-2 times per week. When pt was living w/Flaca, Flaca tried to encourage pt to care for her hygiene, and made pt appointments. Pt did not care for her hygiene and also did not go to appointments she scheduled. DME/HHC/SNF: Pt has a cane she uses. Pt does not think she has had home care before. Pt has been to [facility] and [facility] in the past. Pt alert and oriented though admittedly struggling to remember details. 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 SW called RN to assist in getting the suction device properly. Plan: Pt wants to go home. SW explained we can revisit once she has PT/OT. SW spoke w/Flaca also about plan, she thinks pt is going to need to go somewhere for rehab. She states pt could barely walk when she came into the hospital. She does think pt had a good experience at [facility]. SW will continue to follow, it is anticipated pt may need snf placement at discharge. SOFIA Alvarado Original Note: SW participated in ICU rounds this morning. Pt was extubated this morning. SW spoke w/pt briefly this afternoon in regard to her alcohol use. Pt states she has cut down a lot, is not drinking every day. She states she has 1-2 drinks occasionally. She states I don't even want a drink right now. SW inquired about resources for counseling and substance abuse, pt declined any referrals. Pt states she has had counseling in the past, but does not feel she needs it now. [facility] remains available should pt want resources, or should pt need to go to a half-way facility at discharge. SOFIA Alvarado
--- NOTE | 2021-05-05 12:53 | PN.HOSP_ITS ---
Subjective Subjective Patient remains intubated. She is awake and tries to mouth words. It appears that she is asking for a drink and explained that we need to wait till she is extubated and passes her swallow eval before we can give her anything to eat or drink. She seems to understand. No further bleeding episodes. Objective Data Objective Data Vital Signs: Vital Signs Temp Pulse Resp BP Pulse Ox 97.8 F 93 18 141/108 H 99 05/05/21 08:00 05/05/21 12:00 05/05/21 11:20 05/05/21 11:00 05/05/21 11:00 Oxygen Flow Rate (L/min) 2 Oxygen Delivery Method Nasal Cannula Weight: 42.5 kg Body Mass Index (BMI) 13.6 Intake & Output: Intake and Output for Last 24 Hours 05/03/21 05/04/21 05/05/21 23:59 23:59 23:59 Intake Total 3911.11 / 3946.51 2557.7533 / 2959.6533 2395.34 / 2395.34 Output Total 290 / 290 285 / 385 260 / 260 Balance 3621.11 / 3656.51 2272.7533 / 2574.6533 2135.34 / 2135.34 Medical Nutrition Assessment Dietitian: Malnutrition Criteria Met Start: 05/02/21 13:48 Freq: Status: Active Protocol: Document 05/05/21 12:42 (Rec: 05/05/21 12:42 [id number]) Nutrition Malnutrition Evidence of Malnutrition Exists Yes Malnutrition (severe): Acute Illness/Injury Evidenced By Suboptimal Energy Intake ( Severe),Weight Loss (Severe), Physical Changes (Severe) Clinical Problem Acute Disease or Injury Related Malnutrition Etiology Severe malnutrition in the context of acute acute disease /injury related to inadequate oral intake d/t swallowing difficulty Signs/Symptoms as evidenced by pt reporting vomiting shortly after eating, unintentional wt loss 25#/19% 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 Friend/THERAPY MANAGER; ensure w/ medpass when PO diet advanced. Magic Cup/Ensure Pudding BID w/ meals when PO diet advanced. Lab / Micro Data Result Diagrams: 05/05/21 04:05 05/05/21 04:05 Labs: Laboratory Results - last 24 hr 05/05/21 04:05: Sodium 143, Potassium 3.2 L, Chloride 109 H, Carbon Dioxide 23.0, Anion Gap 11, BUN 20 H, Creatinine 0.92, Estim Creat Clear Calc 44.17, Est GFR (MDRD) Af Amer 80, Est GFR (MDRD) Non-Af 66, BUN/Creatinine Ratio 21.7 H, Glucose 163 H, Calcium 7.9 L, Phosphorus 3.0, Magnesium 2.0 05/05/21 04:05: WBC 10.9, RBC 2.84 L, Hgb 8.9 L, Hct 25.8 L, MCV 90.8, MCH 31.3, MCHC 34.5, RDW Std Deviation 47.7 H, RDW Coeff of Richard 14.4, Plt Count 191, MPV 11.2, Immature Gran % (Auto) 0.900, Neut % (Auto) 87.9 H, Lymph % (Auto) 5.7 L, [place] % (Auto) 5.4, Eos % (Auto) 0.0, Baso % (Auto) 0.1, Absolute Neuts (auto) 9.6 H, Absolute Lymphs (auto) 0.62 L, Nucleated RBC % 0.4 Micro: Microbiology 05/03/21 06:55 Sputum, Induced/Lukens Gram Stain - Final 05/03/21 06:55 Sputum, Induced/Lukens Respiratory Culture - Final 05/03/21 07:20 Urine Catheter - Catheter Legionella Antigen - Final 05/03/21 07:20 Urine Catheter - Catheter Streptococcus pneumoniae Antigen (M - Final 05/01/21 16:02 Nasal Secretion SARS-CoV-2 Antigen (Rapid) - Final ABG Data ABG results: ABG 05/05/21 06:27 Specimen Type ART Sample Site L Radial pH 7.43 Bicarbonate Actual 20.8 L Total CO2 22 Base Excess -4 L O2 Saturation 94 L O2 % 30 ABG pCO2 31.5 L ABG pO2 69 L Mohinder Test Positive O2 Delivery Device Adult Vent Vent Mode AC POC PEEP 5 POC Pressure Suppt 5 Radiography Diagnostic Testing: Radiology Impression Echocardiogram 05/02/21 13:33 Interpretation Summary The study was technically difficult. Contrast injection was performed. Left ventricular systolic function is hyperdynamic. The estimated ejection fraction is 75 %. Severe concentric left ventricular hypertrophy. Trivial mitral valve insufficiency. Trivial tricuspid valve insufficiency. Epicardial fat. Right ventricular systolic pressure estimated to be 42 mmHg. Diastolic function is indeterminate. Ordering Physician: Azael Wick Performed By: Clare Gold RDCS, RVT Physical Exam Const alert and no apparent distress Constitutional Narrative: Obese upper middle-aged white female who appears older than stated age, lying in bed, intubated on a ventilator, awake and tries to mouth words Exam Limitations: other limitations Nutritional Appearance: cachectic HEENT normocephalic, head/scalp atraumatic and moist oral mucous membranes Head and Scalp: normocephalic Neck Neck Narrative: Trachea midline, no noted thyroid enlargement Resp normal respiratory effort, no retractions and no use of accessory muscles Resp Narrative: diffusely diminished Auscultation: diminished lung sounds; Negative for crackles, rales, rhonchi or wheezes Cardio regular rate, regular rhythm, S1 normal heart sound, S2 normal heart sound, no murmurs, no rub, no gallops, no clicks and no JVD Cardio Narrative: Mildly tachycardic Peripheral Pulses: pulses 2+ throughout GI normal to inspection, nondistended, normoactive bowel sounds, soft to palpation, non-tender and non-distended Extremity normal to inspection and no clubbing, cyanosis or edema Peripheral Pulses: Yes pulses 2+ throughout Skin no rashes or lesions noted, no wounds, skin turgor normal, no jaundice, no petechiae and no mottling Skin Narrative: Pale Lesions: no lesions Rashes: no rashes Trauma: no lacerations or abrasions Neuro moves all extremities, no focal motor deficits and deep tendon reflexes 2+ bilaterally Neuro Narrative: Generalized weakness Sensorium / Orientation: awake and alert Psych mental status grossly normal Psych Narrative: Unable to assess Assessment & Plan Assessment/Plan (1) Acute hypoxemic respiratory failure: (2) Abnormal cardiac enzyme level: (3) Esophagitis: (4) Esophageal stricture: (5) Abnormal electrocardiogram: (6) Anemia: PLAN: Acute hypoxic respiratory failure secondary to probable aspiration -Patient intubated on 05/02/2021 -Patient remains intubated and on ventilator -Plan is for extubation later today once sedation wears off as patient had apneic episodes on spontaneous breathing trial -Continue empiric antibiotics -Sputum cultures negative -Urine strep pneumo and Legionella antigens negative -MRSA screen pending -Chest x-ray shows left basilar infiltrate -ABG this morning looks pretty good -Per discussion with Dr. Lindsay patient may start on a full liquid diet if appropriate per speech therapy after extubation -Pulmonary medicine is following Distributive shock -Resolved and patient has been off Levophed since yesterday afternoon Hypokalemia/hypophosphatemia/hypomagnesemia -Suspect related to refeeding syndrome with history of alcohol abuse -Continue tube feed -Aggressively replace electrolytes -Phosphorus normalized and mag remains normal -potassium replacement again today with repeat in a.m. DEANDRE -Resolved with improvement in hypotension Troponin elevation -Suspect NSTEMI type II secondary to demand ischemia -Echocardiogram shows an EF of 75% with severe concentric LVH and right ventricular systolic pressure of 42 mmHg -Continue aspirin -Cardiology is following Gastritis/esophageal stricture -GI is following -Continue PPI -Discontinue drip and start IV push twice daily today -Status post dilation on 05/02/2021 -Appreciate GI input Acute anemia secondary to GI loss -Suspect related to above -Continue PPI -Monitor hemoglobin -Counts are currently stable--> Alcohol abuse -Patient has a history of chronic alcohol use and drinks half a bottle of liquor every day -Last drink was 4 days prior to admission Tobacco abuse No documented history of COPD but would anticipate lung disease at baseline -Aerosols -Would recommend outpatient pulmonology follow-up after discharge -Recommend smoking cessation DVT prophylaxis -SCDs -Enoxaparin CODE STATUS -Full code Charges/Coding Visit Charges Inpatient E&M: 32111 Subs Hosp L2
[2021-05-05] MEDS: amLODIPine 10 MG Tablet PO (13:58)
[2021-05-05] MEDS: Aspirin 81 MG TAB.CHEW PO (13:58)
--- NOTE | 2021-05-05 16:35 | PN.CARD_ITS ---
Subjective Subjective The patient remains in the ICU sedated and mechanically intubated/ventilated. Objective Data Vital Signs: Vital Signs Temp Pulse Resp BP Pulse Ox 98.1 F 87 18 152/115 H 97 05/05/21 12:00 05/05/21 15:47 05/05/21 15:32 05/05/21 15:00 05/05/21 15:00 Oxygen Flow Rate (L/min) 2 Oxygen Delivery Method Room Air Weight: 93 lb 11.143 oz Body Mass Index (BMI) 13.6 Intake & Output: Intake and Output for Last 24 Hours 05/03/21 05/04/21 05/05/21 23:59 23:59 23:59 Intake Total 3911.11 / 3946.51 2557.7533 / 2959.6533 2421.62 / 2421.62 Output Total 290 / 290 285 / 385 260 / 260 Balance 3621.11 / 3656.51 2272.7533 / 2574.6533 2161.62 / 2161.62 Lab / Micro Data Result Diagrams: 05/05/21 04:05 05/05/21 04:05 Labs: Laboratory Results - last 24 hr 05/05/21 04:05: Sodium 143, Potassium 3.2 L, Chloride 109 H, Carbon Dioxide 23.0, Anion Gap 11, BUN 20 H, Creatinine 0.92, Estim Creat Clear Calc 44.17, Est GFR (MDRD) Af Amer 80, Est GFR (MDRD) Non-Af 66, BUN/Creatinine Ratio 21.7 H, Glucose 163 H, Calcium 7.9 L, Phosphorus 3.0, Magnesium 2.0 05/05/21 04:05: WBC 10.9, RBC 2.84 L, Hgb 8.9 L, Hct 25.8 L, MCV 90.8, MCH 31.3, MCHC 34.5, RDW Std Deviation 47.7 H, RDW Coeff of Richard 14.4, Plt Count 191, MPV 11.2, Immature Gran % (Auto) 0.900, Neut % (Auto) 87.9 H, Lymph % (Auto) 5.7 L, [place] % (Auto) 5.4, Eos % (Auto) 0.0, Baso % (Auto) 0.1, Absolute Neuts (auto) 9.6 H, Absolute Lymphs (auto) 0.62 L, Nucleated RBC % 0.4 Micro: Microbiology 05/03/21 06:55 Sputum, Induced/Lukens Gram Stain - Final 05/03/21 06:55 Sputum, Induced/Lukens Respiratory Culture - Final ABG Data ABG results: ABG 05/05/21 06:27 Specimen Type ART Sample Site L Radial pH 7.43 Bicarbonate Actual 20.8 L Total CO2 22 Base Excess -4 L O2 Saturation 94 L O2 % 30 ABG pCO2 31.5 L ABG pO2 69 L Mohinder Test Positive O2 Delivery Device Adult Vent Vent Mode AC POC PEEP 5 POC Pressure Suppt 5 Cardiology Labs/Tests 05/05/21 04:05: Sodium 143, Potassium 3.2 L, Chloride 109 H, Carbon Dioxide 23.0, Anion Gap 11, BUN 20 H, Creatinine 0.92, Est GFR (MDRD) Af Amer 80, Est GFR (MDRD) Non-Af 66, BUN/Creatinine Ratio 21.7 H, Glucose 163 H, Calcium 7.9 L, Phosphorus 3.0, Magnesium 2.0 05/05/21 04:05: WBC 10.9, RBC 2.84 L, Hgb 8.9 L, Hct 25.8 L, MCV 90.8, MCH 31.3, MCHC 34.5, Plt Count 191, MPV 11.2, Immature Gran % (Auto) 0.900, Neut % (Auto) 87.9 H, Lymph % (Auto) 5.7 L, [place] % (Auto) 5.4, Eos % (Auto) 0.0, Baso % (Auto) 0.1, Absolute Neuts (auto) 9.6 H, Nucleated RBC % 0.4 05/05/21 06:27: pH 7.43, Bicarbonate Actual 20.8 L, Base Excess -4 L, O2 Saturation 94 L, ABG pCO2 31.5 L, ABG pO2 69 L, Mohinder Test Positive Rhythm: Sinus rhythm Assessment & Plan Assessment/Plan (1) Abnormal cardiac enzyme level: PLAN: The patient does have an abnormal cardiac enzyme [id number] troponin I level. These levels are obtained post her EGD/dilatation procedure during her hypoxemia requiring supplemental O2 support. She did not appear to have ongoing classic acute coronary syndrome symptoms at that the time of her original consultation based upon lack of classic symptoms, etc.. Thus it is unclear whether these cardiac enzyme changes are related to a primary cardiovascular event versus being secondary to a noncardiovascular event such as her hypoxemia requiring O2 therapy. Her cardiac rhythm as remained sinus. The follow up ECG has demonstrated no new acute ECG changes. (2) Abnormal electrocardiogram: PLAN: The patient does have an abnormal electrocardiogram. The patient has had previous ECGs that have demonstrated ST/T wave changes. The follow up ECG appears somewhat less prominent with no obvious new acute ECG changes. (3) Hypoxemia: PLAN: The etiology of the hypoxemia may be secondary to a combination of factors. She is now mechanically intubated / ventilated. She will continue evaluation / care per internal medicine and pulmonology. (4) Esophageal stricture: PLAN: She is now status EGD / dilatation. She will be followed by internal medicine and gastroenterology. (5) Adult failure to thrive: PLAN: She does appear to have a failure to thrive course. Her alcohol history may be a contributing factor to her failure to thrive. (6) HLD (hyperlipidemia): QUALIFIERS: Hyperlipidemia type: unspecified Qualified Code(s): E78.5 - Hyperlipidemia, unspecified PLAN: Her lipid labs were reviewed and appear to be within acceptable limits. (7) Benign essential HTN: PLAN: Her blood pressure has decreased. She has now required IV vasopressor support. (8) Anemia: PLAN: Her hemoglobin has decreased. She is currently on a PPI. Depending upon her future hemoglobin level she may require PRBC transfusion. She is being followed by internal medicine and pulmonology/critical care medicine. Addt'l Comments Overall, the present time, the patient appears to be without significant change from a cardiovascular standpoint. She will continue evaluation and care per internal medicine and pulmonology/critical care medicine. Depending upon her future overall case she may or may not be a candidate for further cardiac evaluation and care. This note was generated using a voice recognition system and there may be incorrect words, spelling or punctuation that were not noted when reviewing the office note prior to saving.
--- NOTE | 2021-05-05 17:06 | CASEMGMT ---
As per pt, maria del carmen Flaca is POA, she is aware the papers are not on file here at the hospital. SW also did let Flaca know we do not have the papers on file. SOFIA Alvarado
[2021-05-05] MEDS: Acetaminophen 325 MG Tablet 650 MG PO (17:46)
[2021-05-05] MEDS: oxyCODONE 5 MG Tablet PO (20:16)
[2021-05-06] VITALS (21 sets, daily range): BP systolic 94–152; BP diastolic 75–104; PULSE 77–109; RESP 13–26; TEMP 36.3–36.7; O2SAT 93–100
[2021-05-06 04:07] LABS: Absolute Lymphocyte Count 1.43 X10^3/uL (0.83-4.51); Absolute Neutrophil Count 8.5 X10^3/uL (2.0-7.7); Basophil# 0.01 X10^3/uL; Basophil% 0.1 % (0-1); Hematocrit 23.8 % (37-47); Hemoglobin 7.9 g/dL (12.0-15.0); Lymphocyte # 1.43 X10^3/ul (0.83-4.51); Lymphocyte % 13.4 % (19-41); Mean Corp Hgb Conc 33.2 g/dL (32-36); Mean Corpuscular Hgb 31.1 pg (27.0-32.0); Mean Corpuscular Volume 93.7 fL (81-99); Mean Platelet Vol. 9.8 fl (6.2-12.0); Monocyte# 0.65 X10^3/uL; Monocyte% 6.1 % (0-10); NRBC Flagged by Analyzer 0.7 % (0-5); Neutrophil # 8.46 X10^3/uL (2.7-7.7); Neutrophil % 79.3 % (47-70); Platelet Count 165 K/mm3 (150-450); RBC Distribution Width CV 14.9 % (11.6-14.6); RBC Distribution Width SD 50.3 fl (35.1-43.9); Red Blood Count 2.54 M/mm3 (4.2-5.4); White Blood Count 10.7 K/mm3 (4.4-11.0)
[2021-05-06 04:20] LABS: Anion Gap 11 (5-15); BUN 18 mg/dL (7-18); BUN/Creat Ratio 23.7 RATIO (10-20); Calcium,Total 7.9 mg/dL (8.5-10.1); Chloride 108 mmol/L (98-107); Creatinine, Serum 0.76 mg/dL (0.55-1.02); EST Glomerular Filtration Rate 83 mL/min (>60); Est Glom Filt Rate - Afr Amer 100 mL/min (>60); Estimated Creatinine Clearance 68.82 ml/min; Glucose 105 mg/dL (74-106); Potassium 3.8 mmol/L (3.5-5.1); Sodium Level 139 mmol/L (136-145)
--- NOTE | 2021-05-06 06:31 | PCM.PN.INT ---
Assessment & Plan Assessment/Plan (1) Acute hypoxemic respiratory failure: PLAN: RECOMMENDATIONS: 1. Wean off Precedex therapy 2. Advance p.o. diet per GI recommendations 3. Potential transfer from the intensive care unit later today if able to tolerate lack of Precedex 4. Continue PPI therapy as ordered. 5. Continue with empiric antimicrobials 6. Increase activity as tolerated IMPRESSIONS: 1. Acute hypoxemic respiratory failure Resolved. The patient required intubation after she developed respiratory distress and subsequent failure following an upper endoscopy. It is certainly plausible than an acute aspiration event along with medications used for the procedure may have been contributing factors for her decompensation. 2. Distributive shock Resolved. The patient became hypotensive largely as a consequence of the medications being utilized to sedate her while on the vent. She is overall net positive for the hospitalization. 3. Hypokalemia/hypomagnesemia/refeeding syndrome Resolved. Aggressive electrolyte repletion as ordered. The patient will need to be monitored closely for the development of refeeding syndrome. 4. Troponin elevation Likely secondary to demand ischemia. Cardiology is currently following. Continue medical management per their discretion. 5. Gastritis/esophageal stricture status post dilation Continue PPI therapy per GI recommendations. No free air on chest imaging to suggest esophageal perforation. 5. History of chronic alcohol dependency/failure to thrive/malnutrition/history of alcoholic hepatitis Complicates care, management, recovery and prognosis. Continue supportive measures as noted above. Some concern the patient may develop DTs while on the ventilator. Continue to monitor. Subjective Subjective Patient did well from a hemodynamic standpoint. Patient has remained confused, but has remained on Precedex drip. No pressors have been required. Patient is tolerating room air. Patient is not reporting any pain. Patient reportedly had tolerated a full liquid diet yesterday. No bleeding has been reported from nursing. Objective Data Objective Data Vital Signs: Vital Signs Temp Pulse Resp BP Pulse Ox 36.3 C L 77 14 102/83 H 97 05/06/21 00:00 05/06/21 06:00 05/06/21 06:00 05/06/21 06:00 05/06/21 06:00 Oxygen Flow Rate (L/min) 2 Oxygen Delivery Method Room Air Weight: 55.1 kg Body Mass Index (BMI) 13.6 Intake & Output: Intake and Output for Last 24 Hours 05/04/21 05/05/21 05/06/21 23:59 23:59 23:59 Intake Total 2557.7533 / 2959.6533 3112.02 / 3194.22 428.33 / 428.33 Output Total 285 / 385 305 / 405 225 / 225 Balance 2272.7533 / 2574.6533 2807.02 / 2789.22 203.33 / 203.33 Medical Nutrition Assessment Dietitian: Malnutrition Criteria Met Start: 05/02/21 13:48 Freq: Status: Active Protocol: Document 05/05/21 12:42 (Rec: 05/05/21 12:42 [id number]) Nutrition Malnutrition Evidence of Malnutrition Exists Yes Malnutrition (severe): Acute Illness/Injury Evidenced By Suboptimal Energy Intake ( Severe),Weight Loss (Severe), Physical Changes (Severe) Clinical Problem Acute Disease or Injury Related Malnutrition Etiology Severe malnutrition in the context of acute acute disease /injury related to inadequate oral intake d/t swallowing difficulty Signs/Symptoms as evidenced by pt reporting vomiting shortly after eating, 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 Friend/KNAPSACK SPRAYER; ensure w/ medpass when PO diet advanced. Magic Cup/Ensure Pudding BID w/ meals when PO diet advanced. Lab / Micro Data Result Diagrams: 05/06/21 04:00 05/06/21 04:00 Labs: Laboratory Results - last 24 hr 05/05/21 04:05: WBC 10.9, RBC 2.84 L, Hgb 8.9 L, Hct 25.8 L, MCV 90.8, MCH 31.3, MCHC 34.5, RDW Std Deviation 47.7 H, RDW Coeff of Richard 14.4, Plt Count 191, MPV 11.2, Immature Gran % (Auto) 0.900, Neut % (Auto) 87.9 H, Lymph % (Auto) 5.7 L, [place] % (Auto) 5.4, Eos % (Auto) 0.0, Baso % (Auto) 0.1, Absolute Neuts (auto) 9.6 H, Absolute Lymphs (auto) 0.62 L, Nucleated RBC % 0.4 05/06/21 04:00: WBC 10.7, RBC 2.54 L, Hgb 7.9 L, Hct 23.8 L, MCV 93.7, MCH 31.1, MCHC 33.2, RDW Std Deviation 50.3 H, RDW Coeff of Richard 14.9 H, Plt Count 165, MPV 9.8, Immature Gran % (Auto) 1.100 H, Neut % (Auto) 79.3 H, Lymph % (Auto) 13.4 L, [place] % (Auto) 6.1, Eos % (Auto) 0.0, Baso % (Auto) 0.1, Absolute Neuts (auto) 8.5 H, Absolute Lymphs (auto) 1.43, Nucleated RBC % 0.7 05/06/21 04:00: Sodium 139, Potassium 3.8, Chloride 108 H, Carbon Dioxide 20.0 L, Anion Gap 11, BUN 18, Creatinine 0.76, Estim Creat Clear Calc 68.82, Est GFR (MDRD) Af Amer 100, Est GFR (MDRD) Non-Af 83, BUN/Creatinine Ratio 23.7 H, Glucose 105, Calcium 7.9 L Micro: Microbiology 05/03/21 06:55 Sputum, Induced/Lukens Gram Stain - Final 05/03/21 06:55 Sputum, Induced/Lukens Respiratory Culture - Final 05/03/21 07:20 Urine Catheter - Catheter Legionella Antigen - Final 05/03/21 07:20 Urine Catheter - Catheter Streptococcus pneumoniae Antigen (M - Final 05/01/21 16:02 Nasal Secretion SARS-CoV-2 Antigen (Rapid) - Final ABG Data ABG results: ABG 05/05/21 06:27 Specimen Type ART Sample Site L Radial pH 7.43 Bicarbonate Actual 20.8 L Total CO2 22 Base Excess -4 L O2 Saturation 94 L O2 % 30 ABG pCO2 31.5 L ABG pO2 69 L Mohnider Test Positive O2 Delivery Device Adult Vent Vent Mode AC POC PEEP 5 POC Pressure Suppt 5 Physical Exam Const alert General Appearance: frail Orientation / Consciousness: oriented to person; Negative for oriented to place or oriented to time Nutritional Appearance: cachectic HEENT normocephalic and head/scalp atraumatic HEENT Narrative: Temporal wasting present Mouth: endotracheal tube in place and OG tube in place Eyes PERRL and EOMs intact bilaterally Neck supple General: trachea midline and CVC in place Chest inspection of chest normal Chest: symmetrical chest wall rise; Negative for crepitus Resp normal respiratory effort, normal air movement and no retractions Auscultation: Negative for rales, rhonchi or wheezes Cardio regular rate and regular rhythm GI normal to inspection, nondistended, normoactive bowel sounds Extremity no clubbing, cyanosis or edema Skin no rashes or lesions noted Neuro Sensorium / Orientation: sedated on vent Charges/Coding Visit Charges Inpatient E&M: 08757 Subs Hosp L3
[2021-05-06] MEDS: Ipratropium/Albuterol Sulfate 3 ML AMPUL.NEB INHALATION ×3 (06:59→19:15)
[2021-05-06] MEDS: Aspirin 81 MG TAB.CHEW PO (08:02)
[2021-05-06] MEDS: Senna/Docusate Sodium 1 Tablet 2 TABLET PO ×2 (08:02→20:59)
[2021-05-06] MEDS: amLODIPine 10 MG Tablet PO (08:03)
[2021-05-06] MEDS: Enoxaparin 40 MG/0.4 ML Syringe SC (08:03)
--- NOTE | 2021-05-06 09:42 | PN.CARD_ITS ---
Subjective Subjective The patient is currently extubated. She denies any ongoing chest discomfort. She states she feels better overall. Objective Data Vital Signs: Vital Signs Temp Pulse Resp BP Pulse Ox 98 F 90 22 H 125/97 H 97 05/06/21 08:00 05/06/21 09:00 05/06/21 09:00 05/06/21 09:00 05/06/21 09:00 Oxygen Flow Rate (L/min) 2 Oxygen Delivery Method Nasal Cannula Weight: 121 lb 7.595 oz Body Mass Index (BMI) 13.6 Intake & Output: Intake and Output for Last 24 Hours 05/04/21 05/05/21 05/06/21 23:59 23:59 23:59 Intake Total 2557.7533 / 2959.6533 3112.02 / 3194.22 434.46 / 434.46 Output Total 285 / 385 305 / 405 225 / 225 Balance 2272.7533 / 2574.6533 2807.02 / 2789.22 209.46 / 209.46 Lab / Micro Data Result Diagrams: 05/06/21 04:00 05/06/21 04:00 Labs: Laboratory Results - last 24 hr 05/06/21 04:00: WBC 10.7, RBC 2.54 L, Hgb 7.9 L, Hct 23.8 L, MCV 93.7, MCH 31.1, MCHC 33.2, RDW Std Deviation 50.3 H, RDW Coeff of Richard 14.9 H, Plt Count 165, MPV 9.8, Immature Gran % (Auto) 1.100 H, Neut % (Auto) 79.3 H, Lymph % (Auto) 13.4 L , [place] % (Auto) 6.1, Eos % (Auto) 0.0, Baso % (Auto) 0.1, Absolute Neuts (auto) 8.5 H, Absolute Lymphs (auto) 1.43, Nucleated RBC % 0.7 05/06/21 04:00: Sodium 139, Potassium 3.8, Chloride 108 H, Carbon Dioxide 20.0 L , Anion Gap 11, BUN 18, Creatinine 0.76, Estim Creat Clear Calc 68.82, Est GFR (MDRD) Af Amer 100, Est GFR (MDRD) Non-Af 83, BUN/Creatinine Ratio 23.7 H, Glucose 105, Calcium 7.9 L Micro: Microbiology 05/03/21 06:55 Sputum, Induced/Lukens Gram Stain - Final 05/03/21 06:55 Sputum, Induced/Lukens Respiratory Culture - Final Cardiology Labs/Tests 05/06/21 04:00: WBC 10.7, RBC 2.54 L, Hgb 7.9 L, Hct 23.8 L, MCV 93.7, MCH 31.1, MCHC 33.2, Plt Count 165, MPV 9.8, Immature Gran % (Auto) 1.100 H, Neut % (Auto) 79.3 H, Lymph % (Auto) 13.4 L, [place] % (Auto) 6.1, Eos % (Auto) 0.0, Baso % (Auto) 0.1, Absolute Neuts (auto) 8.5 H, Nucleated RBC % 0.7 05/06/21 04:00: Sodium 139, Potassium 3.8, Chloride 108 H, Carbon Dioxide 20.0 L , Anion Gap 11, BUN 18, Creatinine 0.76, Est GFR (MDRD) Af Amer 100, Est GFR (MDRD) Non-Af 83, BUN/Creatinine Ratio 23.7 H, Glucose 105, Calcium 7.9 L Rhythm: Sinus rhythm Physical Exam Const alert and oriented x3 Orientation / Consciousness: awake HEENT normocephalic, head/scalp atraumatic and hearing grossly normal bilaterally Eyes PERRL and EOMs intact bilaterally Neck full ROM, supple and no JVD Resp Auscultation: rhonchi throughout Cardio regular rate, regular rhythm, S1 normal heart sound and S2 normal heart sound GI normal to inspection, nondistended, normoactive bowel sounds Extremity no pedal edema Psych mental status grossly normal Assessment & Plan Assessment/Plan (1) Abnormal cardiac enzyme level: PLAN: The patient does have an abnormal cardiac enzyme vfnik-gauf-gylglqswvbr troponin I level. These levels are obtained post her EGD/dilatation procedure during her hypoxemia requiring supplemental O2 support. She did not appear to have ongoing classic acute coronary syndrome symptoms at that the time of her original consultation based upon lack of classic symptoms, etc.. Thus it is unclear whether these cardiac enzyme changes are related to a primary cardiovascular event versus being secondary to a noncardiovascular event such as her hypoxemia requiring O2 therapy. Her cardiac rhythm as remained sinus. The follow up ECG has demonstrated no new acute ECG changes. At the present time she should medical therapy as tolerated. Ideally she would be considered for further evaluation with diagnostic cardiac catheterization to further assess her cardiovascular status. However, this may be challenging at this time secondary to ongoing concerns of her gastrointestina l process and anemia. Thus her comorbidities should be addressed and hopefully improve/stabilized before going through any invasive cardiovascular evaluation care that could include the need for additional antiplatelet or anticoagulant agents. (2) Abnormal electrocardiogram: PLAN: The patient does have an abnormal electrocardiogram. The patient has had previous ECGs that have demonstrated ST/T wave changes. The follow up ECG appears somewhat less prominent with no obvious new acute ECG changes. (3) Hypoxemia: PLAN: The etiology of the hypoxemia may be secondary to a combination of factors. The patient is now extubated. She will continue evaluation / care per internal medicine and pulmonology. (4) Esophageal stricture: PLAN: She is now status EGD / dilatation. She will be followed by internal medicine and gastroenterology. She has been recommended for clear liquid diet by gastroenterology. At the present time she states she refuses that. She only wants solid foods such as scrambled eggs, finney, and fried potatoes, etc. (5) Adult failure to thrive: PLAN: She does appear to have a failure to thrive course. Her alcohol history may be a contributing factor to her failure to thrive. (6) HLD (hyperlipidemia): QUALIFIERS: Hyperlipidemia type: unspecified Qualified Code(s): E78.5 - Hyperlipidemia, unspecified PLAN: Her lipid labs were reviewed and appear to be within acceptable limits. (7) Benign essential HTN: PLAN: Her blood pressure has decreased. She has now required IV vasopressor support. (8) Anemia: PLAN: Her hemoglobin has decreased. She is currently on a PPI. Depending upon her future hemoglobin level she may require PRBC transfusion. She is being followed by internal medicine and pulmonology/critical care medicine. Addt'l Comments The patient's case was discussed and reviewed with Dr. Levy. This note was generated using a voice recognition system and there may be incorrect words, spelling or punctuation that were not noted when reviewing the office note prior to saving.
[2021-05-06] MEDS: 0.9% Saline Lock 10 ML Syringe IV ×2 (09:59→14:09)
[2021-05-06] MEDS: oxyCODONE 5 MG Tablet PO ×3 (10:11→22:18)
--- NOTE | 2021-05-06 11:03 | PN.HOSP_ITS ---
Subjective Subjective Patient was extubated yesterday and is doing quite well. She has been able to be weaned to room air at this time. She is frustrated with her current diet which is full liquids and states she is not going to eat. I did talk to her further and stated we can progress her unless we know she tolerates it and she was agreeable to trying some oatmeal this morning, although reluctantly. She has no current complaints Objective Data Objective Data Vital Signs: Vital Signs Temp Pulse Resp BP Pulse Ox 98 F 97 18 115/83 H 97 05/06/21 08:00 05/06/21 10:00 05/06/21 10:00 05/06/21 10:00 05/06/21 10:00 Oxygen Flow Rate (L/min) 2 Oxygen Delivery Method Room Air Weight: 55.1 kg Body Mass Index (BMI) 13.6 Intake & Output: Intake and Output for Last 24 Hours 05/04/21 05/05/21 05/06/21 23:59 23:59 23:59 Intake Total 2557.7533 / 2959.6533 3112.02 / 3194.22 594.46 / 594.46 Output Total 285 / 385 305 / 405 225 / 225 Balance 2272.7533 / 2574.6533 2807.02 / 2789.22 369.46 / 369.46 Medical Nutrition Assessment Dietitian: Malnutrition Criteria Met Start: 05/02/21 13:48 Freq: Status: Active Protocol: Document 05/06/21 10:19 (Rec: 05/06/21 10:19 [id number]) Nutrition Malnutrition Evidence of Malnutrition Exists Yes Malnutrition (severe): Acute Illness/Injury Evidenced By Suboptimal Energy Intake ( Severe),Weight Loss (Severe), Physical Changes (Severe) Clinical Problem Acute Disease or Injury Related Malnutrition Etiology Severe malnutrition in the context of acute acute disease /injury related to inadequate oral intake d/t swallowing difficulty Signs/Symptoms as evidenced by pt reporting vomiting shortly after eating, 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 Lab / Micro Data Result Diagrams: 05/06/21 04:00 05/06/21 04:00 Labs: Laboratory Results - last 24 hr 05/06/21 04:00: WBC 10.7, RBC 2.54 L, Hgb 7.9 L, Hct 23.8 L, MCV 93.7, MCH 31.1, MCHC 33.2, RDW Std Deviation 50.3 H, RDW Coeff of Richard 14.9 H, Plt Count 165, MPV 9.8, Immature Gran % (Auto) 1.100 H, Neut % (Auto) 79.3 H, Lymph % (Auto) 13.4 L , [place] % (Auto) 6.1, Eos % (Auto) 0.0, Baso % (Auto) 0.1, Absolute Neuts (auto) 8.5 H, Absolute Lymphs (auto) 1.43, Nucleated RBC % 0.7 05/06/21 04:00: Sodium 139, Potassium 3.8, Chloride 108 H, Carbon Dioxide 20.0 L , Anion Gap 11, BUN 18, Creatinine 0.76, Estim Creat Clear Calc 68.82, Est GFR (MDRD) Af Amer 100, Est GFR (MDRD) Non-Af 83, BUN/Creatinine Ratio 23.7 H, Glucose 105, Calcium 7.9 L Micro: Microbiology 05/03/21 06:55 Sputum, Induced/Lukens Gram Stain - Final 05/03/21 06:55 Sputum, Induced/Lukens Respiratory Culture - Final 05/03/21 07:20 Urine Catheter - Catheter Legionella Antigen - Final 05/03/21 07:20 Urine Catheter - Catheter Streptococcus pneumoniae Antigen (M - Final 05/01/21 16:02 Nasal Secretion SARS-CoV-2 Antigen (Rapid) - Final Physical Exam Const alert, oriented x3 and no apparent distress Constitutional Narrative: Obese upper middle-aged white female who appears much older than stated age, lying in bed, sitting up in bed on room air, appropriately interactive, nursing at bedside Exam Limitations: no limitations Nutritional Appearance: cachectic, underweight and thin HEENT normocephalic, head/scalp atraumatic and moist oral mucous membranes; Negative for dentition normal Head and Scalp: normocephalic Resp normal respiratory effort, no retractions and no use of accessory muscles Resp Narrative: diffusely diminished Auscultation: diminished lung sounds; Negative for crackles, rales, rhonchi or wheezes Cardio regular rate, regular rhythm, S1 normal heart sound, S2 normal heart sound, no murmurs, no rub, no gallops, no clicks and no JVD Cardio Narrative: Mildly tachycardic Peripheral Pulses: pulses 2+ throughout GI normal to inspection, nondistended, normoactive bowel sounds, soft to palpation, non-tender and non-distended Extremity normal to inspection and no clubbing, cyanosis or edema General Extremity: edema Peripheral Pulses: Yes pulses 2+ throughout Skin Lesions: no lesions Rashes: no rashes Trauma: no lacerations or abrasions Neuro oriented x3, moves all extremities, no focal motor deficits and deep tendon reflexes 2+ bilaterally Neuro Narrative: Generalized weakness Sensorium / Orientation: awake and alert Speech: speech normal Psych mental status grossly normal Assessment & Plan Assessment/Plan (1) Acute hypoxemic respiratory failure: (2) Abnormal cardiac enzyme level: (3) Esophagitis: (4) Esophageal stricture: (5) Abnormal electrocardiogram: (6) Anemia: PLAN: Acute hypoxic respiratory failure secondary to probable aspiration -Patient intubated on 05/02/2021 and extubated on 05/05/2021 -Continue empiric antibiotics given suspicion of aspiration but will narrow to Unasyn from Zosyn -Day 5 of 7 -Sputum cultures negative -Urine strep pneumo and Legionella antigens negative -MRSA screen negative -Chest x-ray shows left basilar infiltrate -Pulmonary medicine is following Distributive shock -Resolved Hypokalemia/hypophosphatemia/hypomagnesemia -Suspect related to refeeding syndrome with history of alcohol abuse -Patient is now on p.o. diet -Electrolytes have normalized -Continue to monitor Troponin elevation -Suspect NSTEMI type II secondary to demand ischemia -Patient did have some EKG ST-T wave changes -Echocardiogram shows an EF of 75% with severe concentric LVH and right ventricular systolic pressure of 42 mmHg -Continue aspirin -Cardiology is following--> anticipate patient will require diagnostic LHC but given her anemia and acute GI issues this may be prohibitive at this time and may need to be done as an outpatient -Discussed case with Dr. Valentin Gastritis/esophageal stricture -GI is following -Convert from IV to p.o. PPI 40 mg twice daily -Status post dilation on 05/02/2021 -Appreciate GI input -Okay for advancement of diet as long as patient tolerates full liquids this morning Acute anemia secondary to GI loss -Suspect related to above -Continue PPI -Monitor hemoglobin -Counts are currently relatively stable with no signs of acute bleeding--> 7.9 this a.m. -Transfuse if less than 7 Alcohol abuse -Patient has a history of chronic alcohol use and drinks half a bottle of liquor every day -Last drink was 4 days prior to admission per documentation but did have a blood alcohol level of 7 on admission -No current signs of DT's Tobacco abuse No documented history of COPD but would anticipate lung disease at baseline -Aerosols -Would recommend outpatient pulmonology follow-up after discharge -Recommend smoking cessation DVT prophylaxis -SCDs -Enoxaparin CODE STATUS -Full code -We will transfer to PCU Charges/Coding Visit Charges Inpatient E&M: 22065 Subs Hosp L2
--- NOTE | 2021-05-06 16:02 | CASEMGMT ---
Social Work SW met with pt in room to discuss discharge plan. SW approached the subject of short term rehabilitation in a SNF. Pt started crying and stating absolutely no, she will not go to a assisted. SW discussed with pt discharge options and concerns and pt continues to state no assisted. Per pt request, PAVEL assisted pt in completing a phone call to [facility]. Flaca also requested assisted and when pt declined Flaca asked about home health therapy. PAVEL inquired about services from the Waiver program and pt has not been on this program. Flaca states that pt roommate would have to be agreeable prior to applying to program. Flaca was going to ask pt roommate to call pt and discuss discharge. PAVEL did leave in pt room a list of SNF providers including quality and resource use data and consistent with the patient's preferred geographic region, medical needs and insurance network. PAVEL will continue to follow for d/c planning. SERGIO Fox
[2021-05-06] MEDS: Pantoprazole Sodium 40 MG Tablet PO (21:00)
[2021-05-06] MEDS: Acetaminophen 325 MG Tablet 650 MG PO (21:11)
[2021-05-07] VITALS (17 sets, daily range): BP systolic 126–161; BP diastolic 99–113; PULSE 90–121; RESP 16–18; TEMP 36.5–37.4; O2SAT 96–98
[2021-05-07] MEDS: hydrALAZINE 20 MG/ML Vial 10 MG IV (02:38)
--- NOTE | 2021-05-07 03:19 | MDS.RN ---
pts bp elevated, prn a bp meds given 161/112
[2021-05-07] MEDS: oxyCODONE 5 MG Tablet PO ×3 (05:23→17:27)
[2021-05-07] MEDS: Acetaminophen 325 MG Tablet 650 MG PO ×3 (05:25→17:27)
[2021-05-07 07:17] LABS: Absolute Lymphocyte Count 1.47 X10^3/uL (0.83-4.51); Absolute Neutrophil Count 8.3 X10^3/uL (2.0-7.7); Basophil# 0.01 X10^3/uL; Basophil% 0.1 % (0-1); Hematocrit 25.4 % (37-47); Lymphocyte # 1.47 X10^3/ul (0.83-4.51); Lymphocyte % 13.9 % (19-41); Mean Corp Hgb Conc 31.5 g/dL (32-36); Mean Corpuscular Hgb 30.9 pg (27.0-32.0); Mean Corpuscular Volume 98.1 fL (81-99); Mean Platelet Vol. 11.7 fl (6.2-12.0); Monocyte# 0.65 X10^3/uL; Monocyte% 6.1 % (0-10); NRBC Flagged by Analyzer 0.6 % (0-5); Neutrophil # 8.34 X10^3/uL (2.7-7.7); Neutrophil % 78.9 % (47-70); Platelet Count 182 K/mm3 (150-450); RBC Distribution Width CV 15.2 % (11.6-14.6); RBC Distribution Width SD 53.8 fl (35.1-43.9); Red Blood Count 2.59 M/mm3 (4.2-5.4); White Blood Count 10.6 K/mm3 (4.4-11.0)
[2021-05-07 07:41] LABS: Anion Gap 10 (5-15); BUN 17 mg/dL (7-18); BUN/Creat Ratio 20.7 RATIO (10-20); Calcium,Total 8.1 mg/dL (8.5-10.1); Chloride 110 mmol/L (98-107); Creatinine, Serum 0.82 mg/dL (0.55-1.02); EST Glomerular Filtration Rate 75 mL/min (>60); Est Glom Filt Rate - Afr Amer 91 mL/min (>60); Estimated Creatinine Clearance 58.42 ml/min; Glucose 100 mg/dL (74-106); Potassium 4.1 mmol/L (3.5-5.1); Sodium Level 139 mmol/L (136-145)
--- NOTE | 2021-05-07 07:49 | PCM.PN.INT ---
Assessment & Plan Assessment/Plan (1) Acute hypoxemic respiratory failure: PLAN: RECOMMENDATIONS: 1. Defer pain management to primary service 2. Advance p.o. diet per GI recommendations 3. Continue PPI twice daily 4. Complete course of antimicrobials 5. Hemodynamically stable on room air. Will sign off from a critical care perspective. IMPRESSIONS: 1. Acute hypoxemic respiratory failure Resolved. The patient required intubation after she developed respiratory distress and subsequent failure following an upper endoscopy. It is certainly plausible than an acute aspiration event along with medications used for the procedure may have been contributing factors for her decompensation. Patient is now tolerating room air. 2. Distributive shock Resolved. The patient became hypotensive largely as a consequence of the medications being utilized to sedate her while on the vent. She is overall net positive for the hospitalization. 3. Hypokalemia/hypomagnesemia/refeeding syndrome Resolved. Aggressive electrolyte repletion as ordered. The patient will need to be monitored closely for the development of refeeding syndrome. 4. Troponin elevation Likely secondary to demand ischemia. Cardiology is currently following. Continue medical management per their discretion. 5. Gastritis/esophageal stricture status post dilation Continue PPI therapy per GI recommendations. No free air on chest imaging to suggest esophageal perforation. 5. History of chronic alcohol dependency/failure to thrive/malnutrition/history of alcoholic hepatitis Complicates care, management, recovery and prognosis. Continue supportive measures as noted above. Some concern the patient may develop DTs while on the ventilator. Continue to monitor. Subjective Subjective Patient transferred out of the intensive care unit yesterday. No hemodynamic instability reported overnight. Patient was found tearful and complaining of a painful coccyx and lower back pain. Patient does have lower back pain at baseline per her report and states this is not changed in character, but does appear to be more intense. Objective Data Objective Data Vital Signs: Vital Signs Temp Pulse Resp BP Pulse Ox 36.8 C 121 H 16 161/113 H 97 05/07/21 02:40 05/07/21 06:35 05/07/21 05:32 05/07/21 05:32 05/07/21 05:32 Oxygen Flow Rate (L/min) 2 Oxygen Delivery Method Nasal Cannula Weight: 50.1 kg Body Mass Index (BMI) 13.6 Intake & Output: Intake and Output for Last 24 Hours 05/05/21 05/06/21 05/07/21 23:59 23:59 23:59 Intake Total 3112.02 / 3194.22 1351.46 / 1351.46 112 / 112 Output Total 305 / 405 500 / 500 Balance 2807.02 / 2789.22 851.46 / 851.46 112 / 112 Medical Nutrition Assessment Dietitian: Malnutrition Criteria Met Start: 05/02/21 13:48 Freq: Status: Active Protocol: Document 05/06/21 10:19 (Rec: 05/06/21 10:19 [id number]) Nutrition Malnutrition Evidence of Malnutrition Exists Yes Malnutrition (severe): Acute Illness/Injury Evidenced By Suboptimal Energy Intake ( Severe),Weight Loss (Severe), Physical Changes (Severe) Clinical Problem Acute Disease or Injury Related Malnutrition Etiology Severe malnutrition in the context of acute acute disease /injury related to inadequate oral intake d/t swallowing difficulty Signs/Symptoms as evidenced by pt reporting vomiting shortly after eating, 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 Lab / Micro Data Result Diagrams: 05/07/21 06:00 05/07/21 06:00 Labs: Laboratory Results - last 24 hr 05/07/21 06:00: WBC 10.6, RBC 2.59 L, Hgb 8.0 L, Hct 25.4 L, MCV 98.1, MCH 30.9, MCHC 31.5 L D, RDW Std Deviation 53.8 H, RDW Coeff of Richard 15.2 H, Plt Count 182, MPV 11.7, Immature Gran % (Auto) 1.000 H, Neut % (Auto) 78.9 H, Lymph % (Auto) 13.9 L, [place] % (Auto) 6.1, Eos % (Auto) 0.0, Baso % (Auto) 0.1, Absolute Neuts (auto) 8.3 H, Absolute Lymphs (auto) 1.47, Nucleated RBC % 0.6 05/07/21 06:00: Sodium 139, Potassium 4.1, Chloride 110 H, Carbon Dioxide 19.0 L, Anion Gap 10, BUN 17, Creatinine 0.82, Estim Creat Clear Calc 58.42, Est GFR (MDRD) Af Amer 91, Est GFR (MDRD) Non-Af 75, BUN/Creatinine Ratio 20.7 H, Glucose 100, Calcium 8.1 L Micro: Microbiology 05/03/21 06:55 Sputum, Induced/Lukens Gram Stain - Final 05/03/21 06:55 Sputum, Induced/Lukens Respiratory Culture - Final 05/03/21 07:20 Urine Catheter - Catheter Legionella Antigen - Final 05/03/21 07:20 Urine Catheter - Catheter Streptococcus pneumoniae Antigen (M - Final 05/01/21 16:02 Nasal Secretion SARS-CoV-2 Antigen (Rapid) - Final Physical Exam Const alert Constitutional Narrative: Tearful General Appearance: in distress Positive for moderate and frail Orientation / Consciousness: oriented to person, oriented to place and oriented to time Nutritional Appearance: cachectic HEENT normocephalic and head/scalp atraumatic HEENT Narrative: Temporal wasting present Eyes PERRL and EOMs intact bilaterally Neck supple General: trachea midline and CVC in place Chest inspection of chest normal Chest: symmetrical chest wall rise; Negative for crepitus Resp normal respiratory effort, normal air movement and no retractions Auscultation: Negative for rales, rhonchi or wheezes Cardio regular rate and regular rhythm GI normal to inspection, nondistended, normoactive bowel sounds Extremity no clubbing, cyanosis or edema Skin no rashes or lesions noted Psych Mood & Affect: anxious and tearful Thought Process: racing thoughts Charges/Coding Visit Charges Inpatient E&M: 28602 Subs Hosp L2
[2021-05-07] MEDS: amLODIPine 10 MG Tablet PO (08:24)
[2021-05-07] MEDS: Aspirin 81 MG TAB.CHEW PO (08:24)
[2021-05-07] MEDS: Pantoprazole Sodium 40 MG Tablet PO ×2 (08:25→22:19)
[2021-05-07] MEDS: Enoxaparin 40 MG/0.4 ML Syringe SC (08:25)
--- NOTE | 2021-05-07 11:53 | CASEMGMT ---
Physician spoke with patient and she is agreeable to going somewhere for rehab. SW spoke with patient. Introduced self and role at [facility]. SW asked if she looked a the list the Gravel Screener left her yesterday. She has not looked at it yet. SW asked if she would want to go back to [facility] or [facility]. She said not [facility]. She was agreeable to making a referral to [facility]. SW told her to please look at the list and pick a couple other choices in case [facility] does not work out. SW told her SW will let her know. SW called [facility] and left a message for Edith Harp in admissions. SW also faxed referral. Await response. Ginette Ramírez LITHOGRAPHIC RETOUCHER APPRENTICE LABORATORY MECHANIC HELPER
[2021-05-07] MEDS: Metoprolol Tartrate 25 MG Tablet PO ×2 (12:00→22:19)
--- NOTE | 2021-05-07 12:02 | CASEMGMT ---
PAVEL received a call from patient's Healthcare Power of Pig Lead Melter Helper, Flaca. She asked about an update. PAVEL told her patient is now agreeable to going somewhere for rehab. She did not want to go back to [facility], but was okay with [facility]. Flaca said [facility] denied her last time because she owes them money. PAVEL told her to look at the list for other options. She then told PAVEL that patient's roommates are more than happy to have patient come back. As long as patient can walk a little bit they feel they can care for her as long as Flaca helps with a shower a couple of times a week. She said they are perfectly capable of caring for her. She also said they are okay with home health coming into the home. She said that is also an option. PAVEL said we can see how she does with therapy today. She asked PAVEL to keep her updated. Ginette Ramírez AUTO MACHINIST JASSI
--- NOTE | 2021-05-07 13:53 | CASEMGMT ---
PAVEL has not heard from [facility] yet. PAVEL called Edith Har[facility] and she did not answer and her voice mailbox was full. PAVEL spoke with patient and went over list with her for another choice. She said she wants to go where she can smoke. PAVEL asked about [facility] again and she said no. PAVEL asked about [facility] and she said that is fine. PAVEL asked her about going to [place] and she said she would be okay with that too. PAVEL faxed referral to [facility]. PAVEL also called Marti with [facility] regarding referral. Await responses. Ginette Ramírez GLOBAL MARKETING OPERATIONS MANAGER JASSI
--- NOTE | 2021-05-07 15:53 | CASEMGMT ---
PAVEL spoke with Marti at [facility] and she is still waiting on them to get back to her. Ginette Ramírez TELEPHONE SERVICES SALES REPRESENTATIVE JASSI
--- NOTE | 2021-05-07 18:03 | PN.CARD_ITS ---
Subjective Subjective The patient was evaluated earlier this day. She denied any new acute cardiovascular symptoms. She stated she was attempting her liquid diet with the hopes of advancing her diet as tolerated. Objective Data Vital Signs: Vital Signs Temp Pulse Resp BP Pulse Ox 98.8 F 91 18 126/99 H 96 05/07/21 15:49 05/07/21 15:49 05/07/21 15:49 05/07/21 15:49 05/07/21 15:49 Oxygen Flow Rate (L/min) 2 Oxygen Delivery Method Room Air Weight: 110 lb 7.225 oz Body Mass Index (BMI) 13.6 Intake & Output: Intake and Output for Last 24 Hours 05/05/21 05/06/21 05/07/21 23:59 23:59 23:59 Intake Total 3112.02 / 3194.22 1351.46 / 1351.46 1024 / 1024 Output Total 305 / 405 500 / 500 Balance 2807.02 / 2789.22 851.46 / 851.46 1024 / 1024 Lab / Micro Data Result Diagrams: 05/07/21 06:00 05/07/21 06:00 Labs: Laboratory Results - last 24 hr 05/07/21 06:00: WBC 10.6, RBC 2.59 L, Hgb 8.0 L, Hct 25.4 L, MCV 98.1, MCH 30.9, MCHC 31.5 L D, RDW Std Deviation 53.8 H, RDW Coeff of Richard 15.2 H, Plt Count 182, MPV 11.7, Immature Gran % (Auto) 1.000 H, Neut % (Auto) 78.9 H, Lymph % (Auto) 13.9 L, [place] % (Auto) 6.1, Eos % (Auto) 0.0, Baso % (Auto) 0.1, Absolute Neuts (auto) 8.3 H, Absolute Lymphs (auto) 1.47, Nucleated RBC % 0.6 05/07/21 06:00: Sodium 139, Potassium 4.1, Chloride 110 H, Carbon Dioxide 19.0 L , Anion Gap 10, BUN 17, Creatinine 0.82, Estim Creat Clear Calc 58.42, Est GFR (MDRD) Af Amer 91, Est GFR (MDRD) Non-Af 75, BUN/Creatinine Ratio 20.7 H, Glucose 100, Calcium 8.1 L Cardiology Labs/Tests 05/07/21 06:00: WBC 10.6, RBC 2.59 L, Hgb 8.0 L, Hct 25.4 L, MCV 98.1, MCH 30.9, MCHC 31.5 L D, Plt Count 182, MPV 11.7, Immature Gran % (Auto) 1.000 H, Neut % (Auto) 78.9 H, Lymph % (Auto) 13.9 L, [place] % (Auto) 6.1, Eos % (Auto) 0.0, Baso % (Auto) 0.1, Absolute Neuts (auto) 8.3 H, Nucleated RBC % 0.6 05/07/21 06:00: Sodium 139, Potassium 4.1, Chloride 110 H, Carbon Dioxide 19.0 L , Anion Gap 10, BUN 17, Creatinine 0.82, Est GFR (MDRD) Af Amer 91, Est GFR (MDRD) Non-Af 75, BUN/Creatinine Ratio 20.7 H, Glucose 100, Calcium 8.1 L Rhythm: Sinus rhythm Physical Exam Const alert and oriented x3 Orientation / Consciousness: awake HEENT normocephalic, head/scalp atraumatic and hearing grossly normal bilaterally Eyes PERRL and EOMs intact bilaterally Neck full ROM, supple and no JVD Resp Auscultation: rhonchi throughout Cardio regular rate, regular rhythm, S1 normal heart sound and S2 normal heart sound GI normal to inspection, nondistended, normoactive bowel sounds Extremity no pedal edema Psych mental status grossly normal Assessment & Plan Assessment/Plan (1) Abnormal cardiac enzyme level: PLAN: The patient does have an abnormal cardiac enzyme [id number] troponin I level. These levels are obtained post her EGD/dilatation procedure during her hypoxemia requiring supplemental O2 support. She did not appear to have ongoing classic acute coronary syndrome symptoms at that the time of her original consultation based upon lack of classic symptoms, etc.. Thus it is unclear whether these cardiac enzyme changes are related to a primary cardiovascular event versus being secondary to a noncardiovascular event such as her hypoxemia requiring O2 therapy. Her cardiac rhythm as remained sinus. The follow up ECG has demonstrated no new acute ECG changes. At the present time she should medical therapy as tolerated. Ideally she would be considered for further evaluation with diagnostic cardiac catheterization to further assess her cardiovascular status. However, this may be challenging at this time secondary to ongoing concerns of her gastrointestinal process and anemia. Thus her comorbidities should be addressed and hopefully improve/stabilized before going through any invasive cardiovascular evaluation care that could include the need for additional an tiplatelet or anticoagulant agents. (2) Abnormal electrocardiogram: PLAN: The patient does have an abnormal electrocardiogram. The patient has had previous ECGs that have demonstrated ST/T wave changes. The follow up ECG appears somewhat less prominent with no obvious new acute ECG changes. (3) Hypoxemia: PLAN: The etiology of the hypoxemia may be secondary to a combination of factors. The patient is now extubated. She will continue evaluation / care per internal medicine and pulmonology. (4) Esophageal stricture: PLAN: She is now status EGD / dilatation. She will be followed by internal medicine and gastroenterology. She has been recommended for clear liquid diet by gastroenterology. She states she is attempting to advance her diet as best as tolerated. (5) Adult failure to thrive: PLAN: She does appear to have a failure to thrive course. Her alcohol history may be a contributing factor to her failure to thrive. (6) HLD (hyperlipidemia): QUALIFIERS: Hyperlipidemia type: unspecified Qualified Code(s): E78.5 - Hyperlipidemia, unspecified PLAN: Her lipid labs were reviewed and appear to be within acceptable limits. (7) Benign essential HTN: PLAN: Her blood pressure has decreased. She has now required IV vasopresso r support. (8) Anemia: PLAN: Her hemoglobin has decreased. She is currently on a PPI. Depending upon her future hemoglobin level she may require PRBC transfusion. She is being followed by internal medicine and pulmonology/critical care medicine. Addt'l Comments Overall, at the present time, she will continue conservative medical management from a cardiovascular standpoint and continue evaluation care for multiple comorbidities from a noncardiac standpoint. This note was generated using a voice recognition system and there may be incorrect words, spelling or punctuation that were not noted when reviewing the office note prior to saving.
--- NOTE | 2021-05-07 18:09 | PCM.PN.HOSP ---
Subjective Subjective Patient is tearful. She evidently had an argument with her roommate who is in the hospital as well. She is aware she will be unable to go home and is willing to look at rehab facilities so she is able to go home and take care of herself. She knows she is not able to do this at this time. No significant complaints at this time other than pain on her arms where she has ecchymosis related to IV placement in the ICU. Objective Data Objective Data Vital Signs: Vital Signs Temp Pulse Resp BP Pulse Ox 98.8 F 91 18 126/99 H 96 05/07/21 15:49 05/07/21 15:49 05/07/21 15:49 05/07/21 15:49 05/07/21 15:49 Oxygen Flow Rate (L/min) 2 Oxygen Delivery Method Room Air Weight: 50.1 kg Body Mass Index (BMI) 13.6 Intake & Output: Intake and Output for Last 24 Hours 05/05/21 05/06/21 05/07/21 23:59 23:59 23:59 Intake Total 3112.02 / 3194.22 1351.46 / 1351.46 1024 / 1024 Output Total 305 / 405 500 / 500 Balance 2807.02 / 2789.22 851.46 / 851.46 1024 / 1024 Medical Nutrition Assessment Dietitian: Malnutrition Criteria Met Start: 05/02/21 13:48 Freq: Status: Active Protocol: Document 05/06/21 10:19 (Rec: 05/06/21 10:19 [id number]) Nutrition Malnutrition Evidence of Malnutrition Exists Yes Malnutrition (severe): Acute Illness/Injury Evidenced By Suboptimal Energy Intake ( Severe),Weight Loss (Severe), Physical Changes (Severe) Clinical Problem Acute Disease or Injury Related Malnutrition Etiology Severe malnutrition in the context of acute acute disease /injury related to inadequate oral intake d/t swallowing difficulty Signs/Symptoms as evidenced by pt reporting vomiting shortly after eating, 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 Lab / Micro Data Result Diagrams: 05/07/21 06:00 05/07/21 06:00 Labs: Laboratory Results - last 24 hr 05/07/21 06:00: WBC 10.6, RBC 2.59 L, Hgb 8.0 L, Hct 25.4 L, MCV 98.1, MCH 30.9, MCHC 31.5 L D, RDW Std Deviation 53.8 H, RDW Coeff of Richard 15.2 H, Plt Count 182, MPV 11.7, Immature Gran % (Auto) 1.000 H, Neut % (Auto) 78.9 H, Lymph % (Auto) 13.9 L, [place] % (Auto) 6.1, Eos % (Auto) 0.0, Baso % (Auto) 0.1, Absolute Neuts (auto) 8.3 H, Absolute Lymphs (auto) 1.47, Nucleated RBC % 0.6 05/07/21 06:00: Sodium 139, Potassium 4.1, Chloride 110 H, Carbon Dioxide 19.0 L, Anion Gap 10, BUN 17, Creatinine 0.82, Estim Creat Clear Calc 58.42, Est GFR (MDRD) Af Amer 91, Est GFR (MDRD) Non-Af 75, BUN/Creatinine Ratio 20.7 H, Glucose 100, Calcium 8.1 L Micro: Microbiology 05/03/21 06:55 Sputum, Induced/[place] Gram Stain - Final 05/03/21 06:55 Sputum, Induced/[place] Respiratory Culture - Final 05/03/21 07:20 Urine Catheter - Catheter Legionella Antigen - Final 05/03/21 07:20 Urine Catheter - Catheter Streptococcus pneumoniae Antigen (M - Final 05/01/21 16:02 Nasal Secretion SARS-CoV-2 Antigen (Rapid) - Final Physical Exam Const alert, oriented x3 and no apparent distress Constitutional Narrative: Obese upper middle-aged white female who appears much older than stated age, lying in bed, sitting up in bed on room air, tearful this morning with conversation Exam Limitations: no limitations Nutritional Appearance: cachectic, underweight and thin HEENT normocephalic, head/scalp atraumatic and moist oral mucous membranes; Negative for dentition normal Head and Scalp: normocephalic Resp normal respiratory effort, no retractions and no use of accessory muscles Resp Narrative: diffusely diminished Auscultation: diminished lung sounds; Negative for crackles, rales, rhonchi or wheezes Cardio regular rhythm, S1 normal heart sound, S2 normal heart sound, no murmurs, no rub, no gallops, no clicks and no JVD Cardio Narrative: Mildly tachycardic Peripheral Pulses: pulses 2+ throughout GI normal to inspection, nondistended, normoactive bowel sounds, soft to palpation, non-tender and non-distended Extremity normal to inspection and no clubbing, cyanosis or edema General Extremity: edema Peripheral Pulses: Yes pulses 2+ throughout Skin no wounds, skin turgor normal, no jaundice, no petechiae and no mottling Skin Narrative: Pale, scattered bilateral upper extremity ecchymosis, worse right upper extremity Lesions: no lesions Rashes: no rashes Trauma: no lacerations or abrasions Neuro oriented x3, moves all extremities, no focal motor deficits and deep tendon reflexes 2+ bilaterally Neuro Narrative: Generalized weakness Sensorium / Orientation: awake and alert Speech: speech normal Psych mental status grossly normal Psych Narrative: tearful with flat neck today Assessment & Plan Assessment/Plan (1) Acute hypoxemic respiratory failure: (2) Abnormal cardiac enzyme level: (3) Esophagitis: (4) Esophageal stricture: (5) Abnormal electrocardiogram: (6) Anemia: PLAN: Acute hypoxic respiratory failure secondary to probable aspiration -Patient intubated on 05/02/2021 and extubated on 05/05/2021 -Continue empiric antibiotics given suspicion of aspiration but will narrow to Unasyn from Zosyn -Day 6 of 7 -Patient remains on room air -Sputum cultures negative -Urine strep pneumo and Legionella antigens negative -MRSA screen negative -Chest x-ray shows left basilar infiltrate -Pulmonary medicine is following Hypokalemia/hypophosphatemia/hypomagnesemia -Suspect related to refeeding syndrome with history of alcohol abuse -Patient is now on p.o. diet -Electrolytes remain normalized -Continue to monitor Troponin elevation -Suspect NSTEMI type II secondary to demand ischemia -Patient did have some EKG ST-T wave changes -Echocardiogram shows an EF of 75% with severe concentric LVH and right ventricular systolic pressure of 42 mmHg -Continue aspirin -Cardiology is following--> anticipate patient will require diagnostic LHC but given her anemia and acute GI issues this may be prohibitive at this time and Dr. Valentin would like her to follow-up as an outpatient after discharge -Discussed with Dr. Valentin today Gastritis/esophageal stricture -GI is following -Protonix oral 40 mg twice daily -Status post dilation on 05/02/2021 -Appreciate GI input -Tolerating regular diet without any issue Metabolic acidosis secondary to hyperchloremia -No current need for IV fluids -Monitor Acute anemia secondary to GI loss -Suspect related to above -Continue PPI -Monitor hemoglobin -Counts remained stable -Transfuse if less than 7 Alcohol abuse -Patient has a history of chronic alcohol use and drinks half a bottle of liquor every day -Last drink was 4 days prior to admission per documentation but did have a blood alcohol level of 7 on admission -No current signs of DT's Tobacco abuse No documented history of COPD but would anticipate lung disease at baseline -Aerosols -Would recommend outpatient pulmonology follow-up after discharge -Recommend smoking cessation DVT prophylaxis -SCDs -Enoxaparin CODE STATUS -Full code -We will transfer to PCU Charges/Coding Visit Charges Inpatient E&M: 35367 Subs Hosp L2
[2021-05-07] MEDS: Ipratropium/Albuterol Sulfate 3 ML AMPUL.NEB INHALATION (19:19)
[2021-05-07] MEDS: Senna/Docusate Sodium 1 Tablet 2 TABLET PO (22:19)
[2021-05-08] VITALS (12 sets, daily range): BP systolic 144–160; BP diastolic 94–119; PULSE 89–103; RESP 16–20; TEMP 36.6–36.8; O2SAT 94–100
[2021-05-08] MEDS: oxyCODONE 5 MG Tablet PO ×3 (02:47→18:03)
[2021-05-08] MEDS: Ipratropium/Albuterol Sulfate 3 ML AMPUL.NEB INHALATION ×2 (07:35→14:55)
[2021-05-08 07:36] LABS: Absolute Neutrophil Count 4.7 X10^3/uL (2.0-7.7); Basophil# 0.03 X10^3/uL; Basophil% 0.4 % (0-1); Eosinophil# 0.06 X10^3/uL; Eosinophils% 0.7 % (0-5); Hematocrit 28.9 % (37-47); Hemoglobin 9.5 g/dL (12.0-15.0); Lymphocyte % 27.8 % (19-41); Mean Corp Hgb Conc 32.9 g/dL (32-36); Mean Corpuscular Hgb 30.4 pg (27.0-32.0); Mean Corpuscular Volume 92.3 fL (81-99); Mean Platelet Vol. 10.3 fl (6.2-12.0); Monocyte% 12.1 % (0-10); NRBC Flagged by Analyzer 0 % (0-5); Neutrophil # 4.67 X10^3/uL (2.7-7.7); Neutrophil % 56.6 % (47-70); Platelet Count 290 K/mm3 (150-450); RBC Distribution Width CV 15.7 % (11.6-14.6); RBC Distribution Width SD 51.8 fl (35.1-43.9); Red Blood Count 3.13 M/mm3 (4.2-5.4); White Blood Count 8.3 K/mm3 (4.4-11.0)
[2021-05-08] MEDS: Aspirin 81 MG TAB.CHEW PO (07:47)
[2021-05-08 08:08] LABS: Anion Gap 9 (5-15); BUN 15 mg/dL (7-18); BUN/Creat Ratio 23.7 RATIO (10-20); Calcium,Total 7.7 mg/dL (8.5-10.1); Chloride 108 mmol/L (98-107); Cholesterol 159 mg/dL (200); Creatinine, Serum 0.63 mg/dL (0.55-1.02); EST Glomerular Filtration Rate 102 mL/min (>60); Est Glom Filt Rate - Afr Amer 124 mL/min (>60); Estimated Creatinine Clearance 83.03 ml/min; Glucose 93 mg/dL (74-106); High Density Lipoprotein 43 mg/dL; Sodium Level 138 mmol/L (136-145); Triglycerides 173 mg/dL; Very Low Density Lipoprotein 35 mg/dL (5-40)
--- NOTE | 2021-05-08 09:28 | CASEMGMT ---
PAVEL received a call from [facility] with [facility] and they can accept patient. PAVEL will notify patient and physician. Plan: [facility] under skilled level of care. Ginette KEENE
--- NOTE | 2021-05-08 09:42 | CASEMGMT ---
PAVEL notified patient about [facility] accepting her and that she can smoke while there. PAVEL also called her healthcare Flaca JACOBSON and updated her. She said patient did not get her vaccines. PAVEL told her she will have to quarantine for 10-14 days. PAVEL told her she will still get therapy, but no visitation unless she is having a really hard time then they may allow compassionate care visits. She asked about smoking. PAVEL told her she can smoke while there, but SW will have to check about smoking in quarantine. PAVEL received a call from Marti with [facility] and she thinks patient will be able to smoke, but she will check. Ginette Ramírez PATTERN STORAGE CLERK JASSI
[2021-05-08] MEDS: Enoxaparin 40 MG/0.4 ML Syringe SC (09:47)
[2021-05-08] MEDS: Pantoprazole Sodium 40 MG Tablet PO (09:47)
[2021-05-08] MEDS: Metoprolol Tartrate 25 MG Tablet PO (09:47)
[2021-05-08] MEDS: amLODIPine 10 MG Tablet PO (09:47)
--- NOTE | 2021-05-08 10:07 | PCM.PN.CARD ---
Subjective Subjective The patient is awake and alert. She denies ongoing chest discomfort or any recurrent acute shortness of breath/dyspnea. She admits she is very weak and does need assistance with OT/PT and a walker to walk in her room. She states she is tolerating her diet so far and has an increased appetite. Objective Data Vital Signs: Vital Signs Temp Pulse Resp BP Pulse Ox 98.1 F 94 16 160/119 H 94 05/08/21 09:54 05/08/21 09:54 05/08/21 09:54 05/08/21 09:54 05/08/21 09:54 Oxygen Flow Rate (L/min) 2 Oxygen Delivery Method Room Air Weight: 123 lb 10.869 oz Body Mass Index (BMI) 13.6 Intake & Output: Intake and Output for Last 24 Hours 05/06/21 05/07/21 05/08/21 23:59 23:59 23:59 Intake Total 1351.46 / 1351.46 1136 / 1256 352 / 352 Output Total 500 / 500 Balance 851.46 / 851.46 1136 / 1256 352 / 352 Lab / Micro Data Result Diagrams: 05/08/21 06:45 05/08/21 06:45 Labs: Laboratory Results - last 24 hr 05/08/21 06:45: WBC 8.3, RBC 3.13 L, Hgb 9.5 L, Hct 28.9 L, MCV 92.3 D, MCH 30.4, MCHC 32.9, RDW Std Deviation 51.8 H, RDW Coeff of Richard 15.7 H, Plt Count 290, MPV 10.3, Immature Gran % (Auto) 2.400 H, Neut % (Auto) 56.6, Lymph % (Auto) 27.8, [place] % (Auto) 12.1 H, Eos % (Auto) 0.7, Baso % (Auto) 0.4, Absolute Neuts (auto) 4.7, Absolute Lymphs (auto) 2.30, Nucleated RBC % 0 05/08/21 06:45: Sodium 138, Potassium 4.0, Chloride 108 H, Carbon Dioxide 21.0, Anion Gap 9, BUN 15, Creatinine 0.63, Estim Creat Clear Calc 83.03, Est GFR (MDRD) Af Amer 124, Est GFR (MDRD) Non-Af 102, BUN/Creatinine Ratio 23.7 H, Glucose 93, Calcium 7.7 L, Triglycerides 173, Cholesterol 159, LDL Cholesterol 81, VLDL Cholesterol 35, HDL Cholesterol 43 Cardiology Labs/Tests 05/08/21 06:45: WBC 8.3, RBC 3.13 L, Hgb 9.5 L, Hct 28.9 L, MCV 92.3 D, MCH 30.4, MCHC 32.9, Plt Count 290, MPV 10.3, Immature Gran % (Auto) 2.400 H, Neut % (Auto) 56.6, Lymph % (Auto) 27.8, [place] % (Auto) 12.1 H, Eos % (Auto) 0.7, Baso % (Auto) 0.4, Absolute Neuts (auto) 4.7, Nucleated RBC % 0 05/08/21 06:45: Sodium 138, Potassium 4.0, Chloride 108 H, Carbon Dioxide 21.0, Anion Gap 9, BUN 15, Creatinine 0.63, Est GFR (MDRD) Af Amer 124, Est GFR (MDRD) Non-Af 102, BUN/Creatinine Ratio 23.7 H, Glucose 93, Calcium 7.7 L, Triglycerides 173, Cholesterol 159, LDL Cholesterol 81, VLDL Cholesterol 35, HDL Cholesterol 43 Rhythm: Sinus rhythm Physical Exam Const alert and oriented x3 Orientation / Consciousness: awake HEENT normocephalic, head/scalp atraumatic and hearing grossly normal bilaterally Eyes PERRL and EOMs intact bilaterally Neck full ROM, supple and no JVD Resp Auscultation: rhonchi throughout Cardio regular rate, regular rhythm, S1 normal heart sound and S2 normal heart sound GI normal to inspection, nondistended, normoactive bowel sounds Extremity no pedal edema Psych mental status grossly normal Assessment & Plan Assessment/Plan (1) Abnormal cardiac enzyme level: PLAN: The patient does have an abnormal cardiac enzyme fsztf-fjjl-[id number] troponin I level. These levels are obtained post her EGD/dilatation procedure during her hypoxemia requiring supplemental O2 support. She did not appear to have ongoing classic acute coronary syndrome symptoms at that the time of her original consultation based upon lack of classic symptoms, etc.. At the present time the working diagnosis is that her cardiovascular findings are compatible with a type II event secondary to her acute respiratory related issues and hypoxemia. Her cardiac rhythm as remained sinus. The follow up ECG has demonstrated no new acute ECG changes. At the present time she should medical therapy as tolerated. Ideally she would be considered for further evaluation with diagnostic cardiac catheterization to further assess her cardiovascular status. However, this may be challenging at this time secondary to ongoing concerns of her gastrointestinal process and anemia. Thus her comorbidities should be addressed and hopefully improve/stabilized before going through any invasive cardiovascular evaluation care that could include the need for additional antiplatelet or anticoagulant agents. If she cannot proceed in this manner over time based upon her comorbidities then, as she is stabilized, perhaps she would be a candidate for a pharmacologic stress nuclear imaging study to assess for any obvious underlying ischemic burden that would warrant alteration of medical therapy or future plans, if she is ever able, to undergo evaluation such as a diagnostic cardiac catheterization. (2) Hypoxemia: PLAN: The etiology of the hypoxemia may be secondary to a combination of factors. The patient is now extubated. She will continue evaluation / care per internal medicine and pulmonology. (3) Esophageal stricture: PLAN: She is being followed by internal medicine and gastroenterology. She is advancing her diet as deemed appropriate (4) Adult failure to thrive: PLAN: She does appear to have a failure to thrive course. Her alcohol history may be a contributing factor to her failure to thrive. (5) HLD (hyperlipidemia): QUALIFIERS: Hyperlipidemia type: unspecified Qualified Code(s): E78.5 - Hyperlipidemia, unspecified PLAN: Her lipid labs were reviewed and appear to be within acceptable limits. Based upon any concerns of any cardiovascular involvement it may be reasonable to place her on a statin-initially at a low dose. (6) Benign essential HTN: PLAN: Her blood pressure will be followed with adjustment of her medications as deemed appropriate. (7) Anemia: PLAN: Her anemia will need to be followed for any changes that warrant further evaluation and/or PRBC transfusion. Addt'l Comments This note was generated using a voice recognition system and there may be incorrect words, spelling or punctuation that were not noted when reviewing the office note prior to saving.
--- NOTE | 2021-05-08 12:45 | TREXTCAR_ITS ---
Diet 05/06/21 09:49 Diet: Regular - General Food consistency:: Soft & Bite Sized Liquid Consistency:: Regular/Thin Type of Dietary Supplement:: [place] Breakfast Is pt able to select menu?: Yes Diet Comments: small bites/sips, slow rate of intake; ensure pudding/magic cup w/ L&D Routine Orders/Code Status Suppository Type: Dulcolax 10mg Suppository Frequency: Daily PRN Routine Lab Work: CBC and BMP (Weekly.) Code Status: Full Code Wound(s) Coccyx: Wound Type: Pressure Injury Therapies Weight Bearing: Weight bearing as tolerated Extremity Affected:: Bilateral Lower Physical Therapy: Eval and Treat Occupational Therapy: Eval and Treat Speech Therapy: Eval and Treat Problem/Diagnosis (1) Abnormal cardiac enzyme level: Status: Acute (2) Hypoxemia: Status: Acute (3) Esophageal stricture: Status: Chronic (4) Adult failure to thrive: Status: Acute (5) HLD (hyperlipidemia): Status: Chronic (6) Benign essential HTN: Status: Chronic (7) Anemia: Status: Acute Allergies/Procedures Done in Hospital Allergies No Known Allergies Allergy (Verified 05/01/21 12:57) Type of Care/Length of Stay Estimated LOS: Convalescent Care Less Than 30 days Type of Care Needed: Skilled Rehab Potential: Good Prognosis: Good Additional Orders/Day of Discharge Day of Discharge: 05/08/21 Dietary and Speech Recommendations Dietitian Recommendations/Changes: recommend regular diet- consistency/texture per GI/[employer] [address] SQL DEVELOPER; Magic Cup/Ensure Pudding BID w/ meals and [place] Instant Breakfast w/ meals for additional calories/protein if consumed. Discharge Plan Admission Admit Date/Time: 05/01/21 19:47 Primary Reason for Your Visit: Acute hypoxic respiratory failure secondary to possible aspiration Attending Provider: Blaise Crane Primary Care Provider: Care Physician,No Primary Consulting Providers: Ignacia Duong ; Luis Miguel Slaughter ; Edward Barbosa ; Juan Woods ; Toribio Parrish ; Joann Trevino ; Edison Hussein ; Jorge Alberto Salas ; Quinn Valentin ; Edward John ; Bradly Gold ELECTRONIC SCALE TESTER ; Halley Griffith ELECTRONIC SCALE TESTER ; Elise Hall ; Jeffy Garcia ; Humza Goetz ; Erin Loza NP Discharge Orders/Prescriptions Prescriptions: New acetaminophen [Tylenol] 325 mg Tablet 650 mg PO Q6H PRN PRN (Reason: Pain Score 1-10/Temp > 100.7 F) Qty: 0 RF: 0 albuterol sulfate 2.5 mg /3 mL (0.083 %) Solution For Nebulization 2.5 mg inhalation Q2H PRN PRN (Reason: Shortness of Breath/Wheezing) Qty: 0 RF: 0 atorvastatin 10 mg Tablet 10 mg PO QHS Qty: 0 RF: 0 sennosides-docusate sodium [Stool Softener-Stimulant Laxat] 8.6-50 mg Tablet 2 tab PO BID Qty: 0 RF: 0 amlodipine 10 mg Tablet 10 mg PO DAILY Qty: 0 RF: 0 pantoprazole 40 mg Tablet,Delayed Release (Dr/Ec) 40 mg PO BID Qty: 0 RF: 0 aspirin 81 mg Tablet,Chewable 81 mg PO BREAKFAST Qty: 0 RF: 0 metoprolol tartrate 25 mg Tablet 25 mg PO BID Qty: 0 RF: 0 thiamine mononitrate (vit B1) 100 mg tablet 100 mg PO DAILY Qty: 30 RF: 0 Referrals / Follow Up: Humza Goetz DO [STAFF PHYSICIAN] - Within 1 Month (Chronic history of smoking and alcohol. PFT) Quinn Valentin MD [STAFF PHYSICIAN] - Within 1 Month (Possible type II cardiac event) Care Physician,No Primary [Primary Care Provider] - Erin Loza NP, ELECTRONIC SCALE TESTER-C [Nurse Practitioner] - Within 2 Weeks Disposition Disposition (needs filled in before D/C Order can be placed): Retirement Facility
--- NOTE | 2021-05-08 12:45 | PCM.DC.SUM ---
Providers Date of Admission: 05/01/21 Primary Care Physician: [facility] Consultations 05/01/21 21:39 Consult: Gastroenterology Routine Consulting Provider: [facility] Reason for Consult: esophageal dysphagia EMERGENT Consult: No Notified: Yes Date Notified: 05/01/21 Time Notified: 20:00 Method of Notification: Verbal 05/02/21 13:33 Consult: Cardiology Routine Consulting Provider: Avel Mccarty Reason for Consult: Abnormal EKG postop EMERGENT Consult: No Notified: Yes Date Notified: 05/02/21 Time Notified: 13:58 Method of Notification: Text 05/03/21 05:58 Consult: Assembly Line Upholsterer / Pulmonary Medicine Routine Consulting Provider: [facility] Reason for Consult: critical care ICU mgt EMERGENT Consult: No Notified: Yes Date Notified: 05/03/21 Time Notified: 05:58 Method of Notification: Text Reason For Visit: ALCHOL USE HYPONATREMIA CHRONIC DYSPHAGIA Diagnosis Discharge Diagnosis (1) Abnormal cardiac enzyme level: Status: Acute Code(s): R74.8 - Abnormal levels of other serum enzymes (2) Hypoxemia: Status: Acute Code(s): R09.02 - Hypoxemia (3) Esophageal stricture: Status: Chronic Code(s): K22.2 - Esophageal obstruction (4) Adult failure to thrive: Status: Acute Code(s): R62.7 - Adult failure to thrive (5) HLD (hyperlipidemia): Status: Chronic Code(s): E78.5 - Hyperlipidemia, unspecified Qualifiers: Hyperlipidemia type: unspecified Qualified Code(s): E78.5 - Hyperlipidemia, unspecified (6) Benign essential HTN: Status: Chronic Code(s): I10 - Essential (primary) hypertension (7) Anemia: Status: Acute Code(s): D64.9 - Anemia, unspecified Medications at Discharge Home Medications acetaminophen [Tylenol] 650 mg PO Q6H PRN PRN #0 tab 05/08/21 albuterol sulfate 2.5 mg INHALATION Q2H PRN PRN #0 ml 05/08/21 amlodipine 10 mg PO DAILY #0 tab 05/08/21 aspirin 81 mg PO BREAKFAST #0 tab 05/08/21 atorvastatin 10 mg PO QHS #0 tab 05/08/21 metoprolol tartrate 25 mg PO BID #0 tab 05/08/21 pantoprazole 40 mg PO BID #0 tab 05/08/21 sennosides-docusate sodium [Stool Softener-Stimulant Laxat] 2 tab PO BID #0 tab 05/08/21 thiamine mononitrate (vit B1) 100 mg PO DAILY #30 tab 05/08/21 Hospital Course Summary of Care Provided Hospital Course: This 60-year-old female was admitted with generalized weakness, failure to thrive and unable to keep food down with recurrent vomiting after solid food. Patient has history of dysphagia. Initially patient was admitted in PCU but after that she had sudden onset of shortness of breath probably related to aspiration although she was n.p.o. which resulted transferred to ICU, first NIPPV and then intubation and vent management. Acute hypoxic respiratory failure secondary to probable aspiration -Patient intubated on 05/02/2021 and extubated on 05/05/2021. Patient completed 7 days of antibiotics today on 05/08. Patient on room air. -Sputum cultures negative -Urine strep pneumo and Legionella antigens negative -MRSA screen negative -Chest x-ray shows left basilar infiltrate -Pulmonary medicine is following Hypokalemia/hypophosphatemia/hypomagnesemia, Due to chronic alcohol use: Replaced. Electrolytes were checked in normal range. Troponin elevation -Suspect NSTEMI type II secondary to demand ischemia -Patient did have some EKG ST-T wave changes -Echocardiogram shows an EF of 75% with severe concentric LVH and right ventricular systolic pressure of 42 mmHg -Continue aspirin -Cardiology is following--> patient might need diagnostic LHC but given her anemia and acute GI issues this may be prohibitive at this time and Dr. Valentin would like her to follow-up as an outpatient after discharge. Follow Dr. Valentin as an outpatient Gastritis/esophageal stricture Patient was seen and co-managed by GI -Protonix oral 40 mg twice daily -Status post dilation on 05/02/2021. Patient tolerating regular diet. Follow-up with GI outpatient. Metabolic acidosis secondary to hyperchloremia -No current need for IV fluids -Monitor Acute anemia secondary to GI loss hemoglobin remained stable last one 9.5. Continue PPI. -Suspect related to above Alcohol abuse chronic. No current signs of DVT. Tobacco abuse No documented history of COPD but would anticipate lung disease at baseline. Follow-up in pulmonary clinic for outpatient PFT. - cessation DVT prophylaxis -SCDs -Enoxaparin CODE STATUS -Full code Discharge medication reconciliation done. Discharge follow-up instructions completed. Discharge process discussed with the patient and all questions were answered to patient's satisfaction. Total time spent, exact 35 minutes on discharge meds reconciliation, examination, coordination of care with nurses and ancillary staff, review of imaging and blood test and discussion with the patient on follow-up instructions Physical Exam Narrative Seen and examined. General: Awake, oriented x3. BMI 21.2 kg/m?. Patient gained weight while in the hospital. HEENT: Atraumatic, PERRLA, EOMI, Normocephalic Oral: Very dehydrated no Gingival or Mucosal Lesions/ Ulcerations Neck: Supple, No JVD, Negative Carotid Bruits Lungs: Air entry diminished in bilateral lung bases. No crepitation/rhonchi Cardiovascular: Regular rate, Regular Rhythm, Normal S1, Normal S2, No murmurs Abdomen: Bowel Sounds Present, Soft, Non Tender, Non-Distended : No renal angle tenderness. No suprapubic tenderness. Extremities: No edema, Capillary Refill Less than 3 Seconds Skin: No rashes, No breakdown Musculoskeletal: Decreased muscle bulk in all 4 extremities, Loss of subcutaneous fat. No Tenderness to Palpation of Joints or Extremities Neurological: Cranial nerves II-XII grossly intact, DTR 2+/4 and nonfocal Psych/Mental Status: Flat affect. Cries easily Medical Records Data Medical Nutrition Assessment Dietitian: Malnutrition Criteria Met Start: 05/02/21 13:48 Freq: Status: Active Protocol: Document 05/06/21 10:19 (Rec: 05/06/21 10:19 [id number]) Nutrition Malnutrition Evidence of Malnutrition Exists Yes Malnutrition (severe): Acute Illness/Injury Evidenced By Suboptimal Energy Intake ( Severe),Weight Loss (Severe), Physical Changes (Severe) Clinical Problem Acute Disease or Injury Related Malnutrition Etiology Severe malnutrition in the context of acute acute disease /injury related to inadequate oral intake d/t swallowing difficulty Signs/Symptoms as evidenced by pt reporting vomiting shortly after eating, unintentional wt loss 25#/19% x 5 months CORSET[place], and BMI <16.1 Status Active Problem Swallowing Difficulty Etiology related to esophageal stricture Signs/Symptoms as evidenced by inability to tolerate foods PO w/ emesis after eating, inability to consume sufficient nutrition to maintain wt Status Active Problem Recommendation Dietitian Recommendations/Changes recommend regular diet- consistency/texture per GI/VAULT KEEPER ; Magic Cup/Ensure Pudding BID w/ meals and Lottie Instant Breakfast w/ meals for additional calories/protein if consumed. Weight / BMI Weight Weight: 123 lb 10.869 oz Body Mass Index (BMI) 13.6 ABG / Lab / Microbiology Data Result Diagrams: 05/08/21 06:45 05/08/21 06:45 Laboratory: Laboratory Results - last 24 hr 05/08/21 06:45: WBC 8.3, RBC 3.13 L, Hgb 9.5 L, Hct 28.9 L, MCV 92.3 D, MCH 30.4, MCHC 32.9, RDW Std Deviation 51.8 H, RDW Coeff of Richard 15.7 H, Plt Count 290, MPV 10.3, Immature Gran % (Auto) 2.400 H, Neut % (Auto) 56.6, Lymph % (Auto) 27.8, Cla[place]orne % (Auto) 12.1 H, Eos % (Auto) 0.7, Baso % (Auto) 0.4, Absolute Neuts (auto) 4.7, Absolute Lymphs (auto) 2.30, Nucleated RBC % 0 05/08/21 06:45: Sodium 138, Potassium 4.0, Chloride 108 H, Carbon Dioxide 21.0, Anion Gap 9, BUN 15, Creatinine 0.63, Estim Creat Clear Calc 83.03, Est GFR (MDRD) Af Amer 124, Est GFR (MDRD) Non-Af 102, BUN/Creatinine Ratio 23.7 H, Glucose 93, Calcium 7.7 L, Triglycerides 173, Cholesterol 159, LDL Cholesterol 81, VLDL Cholesterol 35, HDL Cholesterol 43 Microbiology: Microbiology 05/08/21 11:59 Nasal Secretion SARS-CoV-2 Antigen (Rapid) - Final 05/03/21 06:55 Sputum, Induced/[place]uk[place] Gram Stain - Final 05/03/21 06:55 Sputum, Induced/[place]ens Respiratory Culture - Final 05/03/21 07:20 Urine Catheter - Catheter Legionella Antigen - Final 05/03/21 07:20 Urine Catheter - Catheter Streptococcus pneumoniae Antigen (M - Final 05/01/21 16:02 Nasal Secretion SARS-CoV-2 Antigen (Rapid) - Final Meaningful Use Info Meaningful Use Diagnoses (Choose all that apply): None applicable Discharge Plan Admission Admit Date/Time: 05/01/21 19:47 Primary Reason for Your Visit: Acute hypoxic respiratory failure secondary to possible aspiration Attending Provider: Blaise Crane Primary Care Provider: Care Physician,No Primary Consulting Providers: Ignacia Duong ; Luis Miguel Slaughter ; Edward Barbosa ; Juan Woods ; Toribio Parrish ; Joann Trevino ; Edison Hussein ; Jogre Alberto Salas ; Quinn Valentin ; Edward John ; Bradly Gold ADMINISTRATIVE ASSISTANT FRONT DESK ; Halley Griffith ADMINISTRATIVE ASSISTANT FRONT DESK ; Elise Hall ; Jeffy Garcia ; Humza Goetz ; Erin Loza NP Discharge Orders/Prescriptions Prescriptions: New acetaminophen [Tylenol] 325 mg Tablet 650 mg PO Q6H PRN PRN (Reason: Pain Score 1-10/Temp > 100.7 F) Qty: 0 RF: 0 albuterol sulfate 2.5 mg /3 mL (0.083 %) Solution For Nebulization 2.5 mg inhalation Q2H PRN PRN (Reason: Shortness of Breath/Wheezing) Qty: 0 RF: 0 atorvastatin 10 mg Tablet 10 mg PO QHS Qty: 0 RF: 0 sennosides-docusate sodium [Stool Softener-Stimulant Laxat] 8.6-50 mg Tablet 2 tab PO BID Qty: 0 RF: 0 amlodipine 10 mg Tablet 10 mg PO DAILY Qty: 0 RF: 0 pantoprazole 40 mg Tablet,Delayed Release (Dr/Ec) 40 mg PO BID Qty: 0 RF: 0 aspirin 81 mg Tablet,Chewable 81 mg PO BREAKFAST Qty: 0 RF: 0 metoprolol tartrate 25 mg Tablet 25 mg PO BID Qty: 0 RF: 0 thiamine mononitrate (vit B1) 100 mg tablet 100 mg PO DAILY Qty: 30 RF: 0 Referrals / Follow Up: Humza Goetz DO [STAFF PHYSICIAN] - Within 1 Month (Chronic history of smoking and alcohol. PFT) Quinn Valentin MD [STAFF PHYSICIAN] - Within 1 Month (Possible type II cardiac event. Elevated troponin possible heart cath as an outpatient.) Care Physician,No Primary [Primary Care Provider] - Erin Loza NP, ADMINISTRATIVE ASSISTANT FRONT DESK-C [Nurse Practitioner] - Within 2 Weeks Disposition Disposition (needs filled in before D/C Order can be placed): Long-Term Facility Charges/Coding Visit Charges Inpatient E&M: 24574 Disch Hosp
--- NOTE | 2021-05-08 15:27 | PHA.DC.MR ---
Pharmacy Service has performed discharge medication reconciliation for this patient upon transfer to [facility]. Home Medications acetaminophen [Tylenol] 650 mg PO Q6H PRN PRN #0 tab 05/08/21 albuterol sulfate 2.5 mg INHALATION Q2H PRN PRN #0 ml 05/08/21 amlodipine 10 mg PO DAILY #0 tab 05/08/21 aspirin 81 mg PO BREAKFAST #0 tab 05/08/21 atorvastatin 10 mg PO QHS #0 tab 05/08/21 metoprolol tartrate 25 mg PO BID #0 tab 05/08/21 pantoprazole 40 mg PO BID #0 tab 05/08/21 sennosides-docusate sodium [Stool Softener-Stimulant Laxat] 2 tab PO BID #0 tab 05/08/21 thiamine mononitrate (vit B1) 100 mg PO DAILY #30 tab 05/08/21 The patient's discharge medication list was reviewed for discrepancies and discrepancies were resolved.
--- NOTE | 2021-05-08 16:21 | CASEMGMT ---
SW received d/c orders for patient. PAVEL faxed orders and negative COVID test to [facility] with [facility]. SW called [facility] and requested orange picker machine operator for 430 via [employer] [id number]. [facility] or [facility] should call with orange picker machine operator time. SW will ask secretary office clerk to call [facility] with a orange picker machine operator time once they call. SW called patient's niece and POA [facility]aca. PAVEL let her know patient will be going to [facility] today. Plan: d/c to [facility] under skilled level of care on a convalescent stay. [facility] is arranging transport and will call staff with orange picker machine operator time. [facility]. Ginette Ramírez FOREST PATROLMAN CONVEYOR LINE BAKERY WORKER
--- NOTE | 2021-05-08 17:53 | NURSING ---
Report called to Lima Jimenez RN at [phone].
== END 2021-05-08 20:25 | disposition skilled nursing facility (03) | DRG 380 ==
LOC: ED 18:32 → MS3 20:01 → PCU 05-02 13:08 → ICU 05-02 17:13 → PCU 05-06 18:15
PROVIDERS: Anesthesiology; Family Medicine; Internal Medicine; Internal Medicine Critical Care Medicine; Internal Medicine Gastroenterology; Nurse Practitioner Family; Admitting Provider Internal Medicine; Emergency Provider Emergency Medicine; Visit Provider Internal Medicine
PROC: 0DJ08ZZ Inspection of Upper Intestinal Tract, Via Natural or Artificial Opening Endoscopic (ICD-10-PCS; CPT 43235; principal; 2021-05-02 11:00)
DX: K22.10 Ulcer of esophagus without bleeding (principal); E43 Unspecified severe protein-calorie malnutrition; J69.0 Pneumonitis due to inhalation of food and vomit; J96.01 Acute respiratory failure with hypoxia; R57.8 Other shock; I21.A1 Myocardial infarction type 2; N17.9 Acute kidney failure, unspecified; E87.1 Hypo-osmolality and hyponatremia; Z68.1 Body mass index [BMI] 19.9 or less, adult; R62.7 Adult failure to thrive; E86.0 Dehydration; R13.14 Dysphagia, pharyngoesophageal phase; K29.70 Gastritis, unspecified, without bleeding; K22.2 Esophageal obstruction; K21.00 Gastro-esophageal reflux disease with esophagitis, without bleeding; K44.9 Diaphragmatic hernia without obstruction or gangrene; E87.6 Hypokalemia; E83.42 Hypomagnesemia; E83.39 Other disorders of phosphorus metabolism; E87.8 Other disorders of electrolyte and fluid balance, not elsewhere classified; F10.20 Alcohol dependence, uncomplicated; Z20.822 Contact with and (suspected) exposure to COVID-19; I10 Essential (primary) hypertension; E78.5 Hyperlipidemia, unspecified; E03.9 Hypothyroidism, unspecified; G47.30 Sleep apnea, unspecified; F32.9 Major depressive disorder, single episode, unspecified; F41.9 Anxiety disorder, unspecified; F17.210 Nicotine dependence, cigarettes, uncomplicated; Z86.73 Personal history of transient ischemic attack (TIA), and cerebral infarction without residual deficits
CPT/HCPCS: 31500; 31720; 36415; 36600; 51702; 71045; 74018; 80048; 80053; 80061; 80076; 80307; 81001; 82077; 82550; 82607; 82746; 82803; 83605; 83690; 83735; 84100; 84132; 84443; 84478; 84484; 85025; 85610; 85730; 86850; 86900; 86901; 87070; 87205; 87426; 87449; 87641; 92526; 92610; 93005; 93306; 94002; 94003; 94640; 94660; 97162; 97166; 97530; 97802; 97803; 99251; 99285; 99406; J7030; J7040; J7050; Q9957; A4216; C1751; C8929; G0463; J0295; J2405; J3010; J3490

== ENCOUNTER 2021-09-03 17:59 | Inpatient (IN) | payer MEDICARE, MEDICAID, SELFPAY ==
[2021-09-03] VITALS (32 sets, daily range): BP systolic 45–117; BP diastolic 28–104; PULSE 74–139; RESP 8–29; TEMP 35.1–36.9; O2SAT 84–100; BMI 18.1
--- NOTE | 2021-09-03 18:03 | EKG12_ITS ---
Test Reason : STROKE Blood Pressure : / mmHG Vent. Rate : 125 BPM Atrial Rate : 125 BPM P-R Int : 150 ms QRS Dur : 082 ms QT Int : 318 ms P-R-T Axes : 063 066 057 degrees QTc Int : 458 ms Sinus tachycardia Marked ST abnormality, possible inferior subendocardial injury Marked ST abnormality, possible anterior subendocardial injury Abnormal ECG When compared with ECG of 03-MAY-2021 03:14, Vent. rate has increased BY 41 BPM T wave inversion now evident in Inferior leads T wave inversion less evident in Anterolateral leads Confirmed by SIMONE SAHU, SEEMA ([id number]), editor newspaper RODDY MCCLURE ([id number]) on 09/07/2021 10:03:15 A M Referred By: CLEMENTE Confirmed By:JONAH NICHOLS MD
--- NOTE | 2021-09-03 18:03 | CT_ITS ---
We are attempting to reach an attending provider to discuss findings. An addendum with communication details will be sent when the communication is complete. EXAM: CT HEAD WITHOUT INTRAVENOUS CONTRAST CLINICAL INDICATION: Neuro deficit, acute, stroke suspected TECHNIQUE: Multiple axial images were obtained of the head without intravenous contrast. This CT exam was performed using one or more of the following dose reduction techniques: automated exposure control, adjustment of the mA and/or kV according to patient size, and/or use of iterative reconstruction technique. This report was created using [employer] report [employer] technology. COMPARISON: 06/18/2020 FINDINGS: BRAIN AND EXTRA-AXIAL SPACES: Mild microvascular ischemic changes. No intra- or extra-axial hemorrhage. No intracranial mass or mass effect. Posterior fossa structures are unremarkable. Ventricles are appropriate for age. No hydrocephalus. Basal cisterns are patent. BONES/JOINTS: Unremarkable. No discrete lytic or blastic abnormalities. SINUSES: Unremarkable as visualized. Clear. MASTOID AIR CELLS: Unremarkable. Clear. ORBITS: Visualized globes, extraocular muscles, optic nerves and retrobulbar fat appear unremarkable. CT/STROKE Brain/Head without Cont IMPRESSION: No acute findings in the head/brain. Electronically Signed: Bear Zepeda MD at 18:13 EST ,
--- NOTE | 2021-09-03 18:05 | NURSING ---
STROKE ALERT CALLED [phone] PRIOR TO ARRIVAL
[2021-09-03] MEDS: Etomidate 20 MG/10 ML Vial 15 MG IV (18:27)
[2021-09-03] MEDS: Succinylcholine Chloride 200 MG/10 ML Vial 50 MG IV (18:28)
--- NOTE | 2021-09-03 18:35 | CM.ED ---
Addendum entered by Sindy Khan 09/03/21 20:12: At this time 20:12 PAVEL followed up with patient. No family present in the room. PAVEL remains available. Sindy GARCIA Original Note: PAVEL Note SW responded to Stroke Alert for patient. No family present. PAVEL remains available if needs arise. Sindy GARCIA
--- NOTE | 2021-09-03 18:41 | ED.RN ---
PT INTUBATED AT 182
--- NOTE | 2021-09-03 19:00 | RAD_ITS ---
STUDY: X-RAY CHEST REASON FOR EXAM: Female, 61 years old. No deficit, acute stroke suspected. TECHNIQUE: Single AP portable view of the chest. COMPARISON: 05/02/2021. FINDINGS: Stable endotracheal tube, enteric tube. There is no right jugular central venous catheter with its tip in the proximal superior vena cava. No pneumothorax. The lungs are hyperexpanded. There is persistent density at the left lung base. There is no blunting of the costophrenic angle suggesting pleural effusion. Normal size heart. Normal mediastinum and godfrey. Normal visualized pulmonary arteries. Normal visualized aortic arch and descending thoracic aorta. There are diffuse degenerative changes of the visualized thoracic spine. There is degenerative osteoarthritis of the bilateral shoulders. There is no demonstrated abnormality of the visualized soft tissue structures of the upper abdomen. RAD/Chest 1 View IMPRESSION: 1. 2 right jugular central venous catheter without pneumothorax. 2. Stable endotracheal tube and enteric tube. 3. Persistent left basilar density with question of pleural effusion. Electronically Signed: Kenji Luz DO at 19:30 EST ,
--- NOTE | 2021-09-03 19:03 | ED.VIS.STROK ---
HPI History of Present Illness Chief Complaint: Neuro S/Sx Informant: EMS Narrative Narrative: Patient seen on arrival per EMS for prehospital stroke protocol. Reported 1700 roommate noted slurred speech not making sense EMS was contacted 20 minutes later. Patient arrived at 1800 to the ED. Reporting increasing confusion dysarthria per EMS. Reported history of stroke in the past and noncompliant with medications. Review of records notes history of alcohol dependence, there is no cirrhosis history. History of hyponatremia secondary to alcohol. History of GERD. Shortly after evaluation of patient, discussed with daughter Martha who is listed as a contact she has not seen her in a while, did states she does drink daily. Discussed possible stroke symptoms for which she states she would like any treatment that would help her mother. [facility] Medical History (Updated 09/03/21 @ 23:[address] Ruben Khan DO) Abnormal cardiac enzyme level Abnormal electrocardiogram Acute hypoxemic respiratory failure Alcohol use Anemia Anxiety Benign essential HTN Chronic alcoholic hepatitis Dysphagia Elevated troponin Esophageal stricture Esophagitis HLD (hyperlipidemia) Hypothyroidism Hypoxemia Migraines Post-menopausal Sleep apnea Smoker Stroke/cerebrovascular accident Medical History unable to obtain Home Medications acetaminophen [Tylenol] 650 mg PO Q6H PRN PRN #0 tab 05/08/21 [Rx Last Taken Unknown] albuterol sulfate 2.5 mg INHALATION Q2H PRN PRN #0 ml 05/08/21 [Rx Last Taken Unknown] amlodipine 10 mg PO DAILY #0 tab 05/08/21 [Rx Last Taken Unknown] aspirin 81 mg PO BREAKFAST #0 tab 05/08/21 [Rx Last Taken Unknown] atorvastatin 10 mg PO QHS #0 tab 05/08/21 [Rx Last Taken Unknown] metoprolol tartrate 25 mg PO BID #0 tab 05/08/21 [Rx Last Taken Unknown] pantoprazole 40 mg PO BID #0 tab 05/08/21 [Rx Last Taken Unknown] sennosides-docusate sodium [Stool Softener-Stimulant Laxat] 2 tab PO BID #0 tab 05/08/21 [Rx Last Taken Unknown] thiamine mononitrate (vit B1) 100 mg PO DAILY #30 tab 05/08/21 [Rx Last Taken Unknown] Allergy/AdvReac Type Severity Reaction Status Date / Time No Known Allergies Allergy Verified 05/01/21 12:57 Family History Brother Alcoholism Father CVA (cerebral vascular accident) Surgical History (Updated 09/03/21 @ 22:[address] Oma Costa MD) H/O resection of rib S/P dilatation of esophageal stricture S/P thyroid surgery S/P tonsillectomy and adenoidectomy Surgical History unable to obtain Social History household members: none Smoking Status: Current every day smoker tobacco type: cigarettes alcohol intake: current alcohol intake frequency: 3 or more drinks per day substance use type: does not use ROS ROS ED Review of Systems ROS Unobtainable: due to mental condition and due to mental status EXAM Physical Exam Const Vital Signs: 09/03/21 17:59 09/03/21 18:19 09/03/21 18:20 Temperature 97.4 F L Temperature Source Axillary Pulse Rate 107 H 107 H 105 H Respiratory Rate 10 L 8 L Blood Pressure 117/104 H 50/40 L 50/40 L Blood Pressure Mean 108 43 43 Blood Pressure Source Blood Pressure Position Blood Pressure Location Pulse Ox Oxygen Delivery Method Room Air Non-Rebreather Non-Rebreather Oxygen Flow Rate (L/min) 15 Fraction of Inspired Oxygen (FIO2) 09/03/21 18:22 09/03/21 18:29 09/03/21 18:35 Temperature Temperature Source Pulse Rate 108 H 133 H Respiratory Rate 16 14 Blood Pressure 86/59 L 75/61 L 92/81 H Blood Pressure Mean 68 65 84 Blood Pressure Source Blood Pressure Position Blood Pressure Location Pulse Ox 84 100 Oxygen Delivery Method Ambu-Bag Mechanical Ventilator Oxygen Flow Rate (L/min) Fraction of Inspired Oxygen (FIO2) 100 100 09/03/21 18:39 09/03/21 18:40 09/03/21 18:41 Temperature 97.4 F L Temperature Source Axillary Pulse Rate 133 H 105 H Respiratory Rate 14 8 L Blood Pressure 104/89 H 86/59 L Blood Pressure Mean 94 68 Blood Pressure Source Blood Pressure Position Blood Pressure Location Pulse Ox 100 Oxygen Delivery Method Non-Rebreather Mechanical Ventilator Non-Rebreather Oxygen Flow Rate (L/min) 15 Fraction of Inspired Oxygen (FIO2) 100 100 100 09/03/21 18:45 09/03/21 18:55 09/03/21 19:00 Temperature Temperature Source Pulse Rate 132 H Respiratory Rate 14 Blood Pressure 109/91 H 109/57 L 66/51 L Blood Pressure Mean 97 74 56 Blood Pressure Source Blood Pressure Position Blood Pressure Location Pulse Ox 100 Oxygen Delivery Method Mechanical Ventilator Oxygen Flow Rate (L/min) Fraction of Inspired Oxygen (FIO2) 100 09/03/21 19:05 09/03/21 19:10 09/03/21 19:15 Temperature Temperature Source Pulse Rate 121 H 132 H Respiratory Rate 14 Blood Pressure 98/81 H 80/56 L 96/83 H Blood Pressure Mean 86 64 87 Blood Pressure Source Blood Pressure Position Blood Pressure Location Pulse Ox 97 Oxygen Delivery Method Mechanical Ventilator Oxygen Flow Rate (L/min) Fraction of Inspired Oxygen (FIO2) 09/03/21 19:23 09/03/21 19:28 09/03/21 19:50 Temperature 97.4 F L Temperature Source Axillary Pulse Rate 132 H Respiratory Rate 14 16 Blood Pressure 96/83 H 96/83 H Blood Pressure Mean 87 Blood Pressure Source Blood Pressure Position Blood Pressure Location Pulse Ox 97 Oxygen Delivery Method Mechanical Ventilator Oxygen Flow Rate (L/min) 15 Fraction of Inspired Oxygen (FIO2) 100 100 09/03/21 20:10 09/03/21 20:12 09/03/21 20:16 Temperature 97.4 F L Temperature Source Axillary Pulse Rate 131 H 131 H Respiratory Rate 14 14 Blood Pressure 65/55 L 65/55 L 68/55 L Blood Pressure Mean 58 58 59 Blood Pressure Source Monitor Blood Pressure Position Supine Blood Pressure Location Right Arm Pulse Ox 97 Oxygen Delivery Method Mechanical Ventilator Mechanical Ventilator Oxygen Flow Rate (L/min) Fraction of Inspired Oxygen (FIO2) 100 100 09/03/21 20:20 09/03/21 20:50 Temperature 95.6 F L Temperature Source Core Pulse Rate 133 H 127 H Respiratory Rate 14 16 Blood Pressure 71/59 L 117/100 H Blood Pressure Mean 63 105 Blood Pressure Source Monitor Blood Pressure Position Supine Blood Pressure Location Right Arm Pulse Ox 96 Oxygen Delivery Method Mechanical Ventilator Mechanical Ventilator Oxygen Flow Rate (L/min) Fraction of Inspired Oxygen (FIO2) 100 Positive cachectic and unkempt Constitutional Narrative: Word salad unable to make sense moving all 4 extremities. General Appearance ED: unkempt and cachectic Nutritional Appearance: cachectic HEENT Reports dry mucous membranes atraumatic Nose: other Other Details: Poor dentition Mouth ED: Yes dry mucous membranes Mouth: dry mucous membranes Chest Wall palpation of chest normal Resp clear to auscultation bilaterally Cardio Rate: regular rate Rhythm: regular rhythm GI normal to inspection, nondistended, normoactive bowel sounds Extremity normal to inspection General Extremety ED: Yes tenderness Neuro Neuro Narrative: Confused, garbled speech. Psych Appearance: unkempt STROKE Vital Signs/Narrative: Vital Signs Temp Pulse Resp BP Pulse Ox 09/03/21 20:50 95.6 F L 127 H 16 117/100 H 96 09/03/21 20:20 133 H 14 71/59 L 09/03/21 20:16 68/55 L 09/03/21 20:12 131 H 14 65/55 L 09/03/21 20:10 97.4 F L 131 H 14 65/55 L 97 09/03/21 19:50 16 Inital Vital Signs reviewed: Yes NIHSS Initial: 1a Level of Consciousness: 2 1b LOC Questions (Score 2 if aphasic/stupor): 2 1c LOC Commands (Only score 1st attempt): 2 2 Best Gaze (If aphasic, use reflexive mvmts.): 1 4 Facial Palsy: 0 5 Motor Arm Right (UN = amputation/fusion): 0 5 Motor Arm Left: 0 6 Motor Leg Right: 0 6 Motor Leg Left: 0 7 Limb ataxia (Only + if out of proportion): UN 8 Sensory (Aphasia/stupor=0 or 1, coma=2): 0 (Unable) 9 Best Language: 2 (Garbling speech) 10 Dysarthria (mute, coma=2, intubated=UN): 2 11 Extinction and Inattention (only scored if +): 2 Total Score: 13 MDM MDM MDM Narrative Medical decision making narrative: Patient brought in as a stroke team, NIH was [address] head was negative I did speak with her daughter Martha was wanting what ever would help her mother. She is evaluated by stroke neurologist on the monitor, she was more obtunded when I came back in the room with concerning for slow agonal breaths. He did recommend TPA due to concerns for a basilar thrombus that can make the patient act this way. She was not moving any extremities all 4 extremities with drop to the bed. However I did discuss intubation prior to this which he states okay and to call back if there is a thrombus. However patient was hypotensive with poor access to 68 IV drawn, therefore emergent central line was placed. Plan was to give TPA, however NG tube placement noted coffee-ground emesis. Patient with alcohol history. Due to upper GI bleed concerns will not give TPA. Protonix was ordered. Post intubation central line x-ray notes good positioning, no pneumothorax. We will still plan for CT angiogram to rule out any LVO. Procedure note: Intubation: Emergent secondary respiratory failure. Patient pretreated with 15 mg etomidate, 50 mg of succinylcholine for RSI. Direct visualization with MAC blade with visualization of the cords, 7.5 Icelandic tube was placed 22 cm at the lips with no complications. Tube was secured. Central line placement: Emergent secondary to for IV access and hypotension. Ultrasound performed before procedure located right IJ that was fairly superficial. Normal sterile fashion with full drapes. Skin was anesthetized with lidocaine 1%. Ultrasound-guided needle Seldinger technique superficial first stick with dark blood. Guidewire was advanced, skin incision, skin dilated, line was placed 15 cm and secured. All 3 ports flushed and drained. Line was secured. Postprocedure x-ray reviewed by myself showed good positioning of all lines including NG tube. No pneumothorax. Awaiting findings, patient became more hypotensive. Patient started on Levophed. Patient sedated with fentanyl. Results of CT angiogram discussion radiology shows no thrombus, reported right apical pneumothorax. Due to patient being on a ventilator decision was made to place chest tube to prevent worsening pneumothorax. 28 Icelandic tube placed right chest 10 cm with no complications. Chest tube placement: Emergent condition due to pneumothorax. Bedside normal sterile conditions. Patient given Versed IV for additional sedation, right arm was placed over her head. Betadine swab of the skin. 15 blade was made for skin incision above ribs, large hemostats entry over the ribs into the lung, lungs was palpated, 28 Icelandic tube was advanced into the chest wall placed 10 cm in. Tube was secured. Vaseline gauze dressing was placed taped and secured. Tube was secured to a Pleur-evac, there was dark brown fluid return approximately 350 cc. Patient tolerated procedure well. Post chest tube chest x-ray films reviewed good positioning. No pneumothorax seen. Patient to need IV fluids, additional pressor added due to hypotension. Lactic acid returned at 10. Potassium 2.5. White count normal. Hemoglobin 15. Troponin returned at 150. Due to GI bleed unable to anticoagulate. Hospitalist Dr. Costa was contacted and involved early in management, she will place broad-spectrum antibiotics for coverage due to hypotension. They reported pneumonia findings from CT scan the neck on the upper lobes. I did update daughter Martha patient's critical condition. Patient will be sent up to the ICU. Lab Data Labs: Laboratory Results - last 24 hr 09/03/21 09/03/21 09/03/21 18:55 18:55 18:55 WBC 10.9 RBC 4.69 Hgb 15.0 Hct 45.6 MCV 97.2 MCH 32.0 MCHC 32.9 RDW Std Deviation 58.4 H RDW Coeff of Richard 16.1 H Plt Count 210 MPV 11.4 Immature Gran % (Auto) 0.700 Neut % (Auto) 72.5 H Lymph % (Auto) 22.9 [place] % (Auto) 3.6 Eos % (Auto) 0.1 Baso % (Auto) 0.2 Absolute Neuts (auto) 7.9 H Absolute Lymphs (auto) 2.49 Nucleated RBC % 0 PT 16.4 H INR 1.4 APTT 45.3 H Sodium 134 L Potassium 2.5 L* Chloride 98 Carbon Dioxide 15.0 L Anion Gap 21 H BUN 15 Creatinine 1.58 H Estim Creat Clear Calc 25.17 Est GFR (MDRD) Af Amer 43 L Est GFR (MDRD) Non-Af 35 L BUN/Creatinine Ratio 9.5 L Glucose 258 H Hemoglobin A1c Calcium 16.0 H* Phosphorus Magnesium Total Bilirubin 0.90 Direct Bilirubin 0.23 AST 38 H ALT 17 Alkaline Phosphatase 61 Ammonia Troponin I High Sens 155 H* Total Protein 4.0 L Albumin 1.8 L Globulin 2.2 Urine Color Urine Clarity Urine pH Ur Specific [place] Urine Protein Urine Glucose (UA) Urine Ketones Urine Occult Blood Urine Nitrite Urine Bilirubin Urine Urobilinogen Ur Leukocyte Esterase Urine RBC Urine WBC Ur Squamous Epith Cells Urine Bacteria Urine Mucus Urine Opiates Screen Urine Methadone Screen Ur Barbiturates Screen Ur Phencyclidine Scrn Ur Amphetamines Screen U Methamphetamin-MDMA U Benzodiazepines Scrn Urine Cocaine Screen U Cannabinoids Screen Ur Drug Screen Comment Ethyl Alcohol 09/03/21 09/03/21 09/03/21 18:55 18:55 18:55 WBC RBC Hgb Hct MCV MCH MCHC RDW Std Deviation RDW Coeff of Richard Plt Count MPV Immature Gran % (Auto) Neut % (Auto) Lymph % (Auto) [place] % (Auto) Eos % (Auto) Baso % (Auto) Absolute Neuts (auto) Absolute Lymphs (auto) Nucleated RBC % PT INR APTT Sodium Potassium Chloride Carbon Dioxide Anion Gap BUN Creatinine Estim Creat Clear Calc Est GFR (MDRD) Af Amer Est GFR (MDRD) Non-Af BUN/Creatinine Ratio Glucose Hemoglobin A1c Calcium Phosphorus 6.3 H Magnesium 2.2 Total Bilirubin Direct Bilirubin AST ALT Alkaline Phosphatase Ammonia 28.0 Troponin I High Sens Total Protein Albumin Globulin Urine Color Urine Clarity Urine pH Ur Specific [place] Urine Protein Urine Glucose (UA) Urine Ketones Urine Occult Blood Urine Nitrite Urine Bilirubin Urine Urobilinogen Ur Leukocyte Esterase Urine RBC Urine WBC Ur Squamous Epith Cells Urine Bacteria Urine Mucus Urine Opiates Screen Urine Methadone Screen Ur Barbiturates Screen Ur Phencyclidine Scrn Ur Amphetamines Screen U Methamphetamin-MDMA U Benzodiazepines Scrn Urine Cocaine Screen U Cannabinoids Screen Ur Drug Screen Comment Ethyl Alcohol 89.0 09/03/21 09/03/21 09/03/21 18:55 20:00 20:00 WBC RBC Hgb Hct MCV MCH MCHC RDW Std Deviation RDW Coeff of Richard Plt Count MPV Immature Gran % (Auto) Neut % (Auto) Lymph % (Auto) [place] % (Auto) Eos % (Auto) Baso % (Auto) Absolute Neuts (auto) Absolute Lymphs (auto) Nucleated RBC % PT INR APTT Sodium Potassium Chloride Carbon Dioxide Anion Gap BUN Creatinine Estim Creat Clear Calc Est GFR (MDRD) Af Amer Est GFR (MDRD) Non-Af BUN/Creatinine Ratio Glucose Hemoglobin A1c 4.7 Calcium Phosphorus Magnesium Total Bilirubin Direct Bilirubin AST ALT Alkaline Phosphatase Ammonia Troponin I High Sens Total Protein Albumin Globulin Urine Color Yellow Urine Clarity Cloudy Urine pH 7.0 Ur Specific [place] 1.010 Urine Protein 100 H Urine Glucose (UA) Normal Urine Ketones Negative Urine Occult Blood 250 H Urine Nitrite Negative Urine Bilirubin Negative Urine Urobilinogen Normal Ur Leukocyte Esterase 500 H Urine RBC 0 SEEN Urine WBC 5-10 SEEN Ur Squamous Epith Cells 10-25 SEEN Urine Bacteria 1+ Urine Mucus 0 SEEN Urine Opiates Screen NEGATIVE Urine Methadone Screen NEGATIVE Ur Barbiturates Screen NEGATIVE Ur Phencyclidine Scrn NEGATIVE Ur Amphetamines Screen POSITIVE H U Methamphetamin-MDMA NEGATIVE U Benzodiazepines Scrn POSITIVE H Urine Cocaine Screen NEGATIVE U Cannabinoids Screen NEGATIVE Ur Drug Screen Comment Ethyl Alcohol ABG Data ABG results: ABG 09/03/21 20:07 Specimen Type ART Sample Site R Fem pH 7.11 L* Bicarbonate Actual 10.2 L Total CO2 11 Base Excess -19 L O2 Saturation 96 O2 % 100 ABG pCO2 31.9 L ABG pO2 108 H Mohinder Test N/A Respiration Rate 16 O2 Delivery Device Adult Vent Vent Mode AC Tidal Volume 440 POC PEEP 5 Crit Call To/Read Back Yes Blood Gas Notified Whom le Radiography Diagnostic Testing: Clinical Impression(s) from Imaging Studies Brain CT 09/03/21 18:03 IMPRESSION: No acute findings in the head/brain. Electronically Signed: Bear Zepeda MD at 18:13 EST , ADDENDUM: 09/03/21 1828 IMPRESSION: No acute findings in the head/brain. N.B. : The above Results were Read Back by Bear Zepeda MD to Abdoulaye Feng MD, and understanding confirmed on 09/03/2021 18:21:36 (ET). Electronically Signed: Bear Zepeda MD at 18:13 EST , Chest X-Ray 09/03/21 19:00 IMPRESSION: 1. 2 right jugular central venous catheter without pneumothorax. 2. Stable endotracheal tube and enteric tube. 3. Persistent left basilar density with question of pleural effusion. Electronically Signed: Kenji Luz DO at 19:30 EST Reading Location ID and State: [facility] / [place] Tel [phone], Service support , Head/Neck CTA 09/03/21 19:07 IMPRESSION: 1. Bilateral pleural effusions. Bilateral pneumonia. Partially visualized right apical pneumothorax. Right IJ line in place. 2. There is mild atherosclerotic plaque formation of the origin of the right and left internal carotid artery with less than 50% cross sectional diameter stenosis. ALL ABOVE CRITERIA BY NASCET. 3. There is calcified plaque formation of the right cavernous carotid artery, with a mild stenosis (less than 50%). There is calcified plaque formation of the left cavernous carotid artery, with a mild stenosis (less than 50%). ALL ABOVE CRITERIA BY NASCET. Electronically Signed: Bear Zepeda MD at 21:05 EST , ADDENDUM: 09/03/212119 IMPRESSION: 1. Bilateral pleural effusions. Bilateral pneumonia. Partially visualized right apical pneumothorax. Right IJ line in place. 2. There is mild atherosclerotic plaque formation of the origin of the right and left internal carotid artery with less than 50% cross sectional diameter stenosis. ALL ABOVE CRITERIA BY NASCET. 3. There is calcified plaque formation of the right cavernous carotid artery, with a mild stenosis (less than 50%). There is calcified plaque formation of the left cavernous carotid artery, with a mild stenosis (less than 50%). ALL ABOVE CRITERIA BY NASCET. N.B. : The above Results were Read Back by Bear Zepeda MD to Ruben Khan MD, and understanding confirmed on 09/03/2021 21:13:07 (ET). Electronically Signed: Bear Zepeda MD at 21:05 EST , EKG Initial EKG: Attestation: I personally reviewed and interpreted this EKG as follows: Comments: Sinus rhythm 125, there is ST depressions on lateral leads, no clear elevations noted. Stroke Documentation Questions Stroke Team Activated: Yes Reviewed Inclusion/Exclusion criteria: Yes Was Patient considered for Endovascular Intervention?: Yes IV Alteplase (t-PA) Administered: No No contraindications for IV Alteplase (t-PA) administration.: Yes (Upper GI bleed on NG tube placement) Critical Care Time Critical Care Time: Yes Critical care time (excluding procedures): 75-104 minutes, Discussing w/Patient &/or Family/Strategy Lead, Discussing w/Consultants, Arranging Admission or Transfer, Performing Direct Patient Care at Bedside and - (90 minutes) Discharge Plan Dx/Rx/DC Orders Clinical Impression: Acute respiratory failure, EtOH dependence, Metabolic encephalopathy, Septic shock, Pneumothorax on right, Altered mental status, Acute upper GI bleed, Non-ST elevation [place] (NSTEMI), Acute hypokalemia Disposition Disposition: Acute Care [facility]
--- NOTE | 2021-09-03 19:07 | CT_ITS ---
We are attempting to reach an attending provider to discuss findings. An addendum with communication details will be sent when the communication is complete. EXAM: CT ANGIOGRAPHY HEAD AND NECK WITH INTRAVENOUS CONTRAST CLINICAL INDICATION: altered mental status CVA,HTN,ALCOHOL ABUSE WITH HEPATITIS TECHNIQUE: [place]/head and neck CT angiography protocol performed with intravenous contrast. This CT exam was performed using one or more of the following dose reduction techniques: automated exposure control, adjustment of the mA and/or kV according to patient size, and/or use of iterative reconstruction technique. This report was created using Genbook report generation technology. MIP reconstructed images were created and reviewed. CONTRAST: IV 75mL [id number] COMPARISON: ct head Sep 03 2021 6:03pm FINDINGS: HEAD: RIGHT ANTERIOR CEREBRAL ARTERY: Unremarkable. No significant stenosis at the visualized segments. Anterior communicating artery is present. No aneurysm. RIGHT MIDDLE CEREBRAL ARTERY: Unremarkable. No significant stenosis at the visualized segments. No aneurysm. RIGHT POSTERIOR CEREBRAL ARTERY: Unremarkable. No occlusion or significant stenosis. No aneurysm. LEFT ANTERIOR CEREBRAL ARTERY: Unremarkable. No significant stenosis at the visualized segments. No aneurysm. LEFT MIDDLE CEREBRAL ARTERY: Unremarkable. No significant stenosis at the visualized segments. No aneurysm. LEFT POSTERIOR CEREBRAL ARTERY: Unremarkable. No occlusion or significant stenosis. No aneurysm. BASILAR ARTERY: Unremarkable. No significant stenosis. No aneurysm. GREAT VESSELS OF AORTIC ARCH: Unremarkable. Normal anatomy, patent. OTHER VASCULATURE: No vascular malformation. NECK: RIGHT COMMON CAROTID ARTERY: Unremarkable. No significant stenosis. No dissection or occlusion. RIGHT INTERNAL CAROTID ARTERY: There is calcified plaque formation of the right cavernous carotid artery, with a mild stenosis (less than 50%). There is calcified plaque formation of the left cavernous carotid artery, with a mild stenosis (less than 50%). ALL ABOVE CRITERIA BY NASCET. No dissection or occlusion. RIGHT EXTERNAL CAROTID ARTERY: Unremarkable. No occlusion. RIGHT VERTEBRAL ARTERY: Unremarkable. No significant stenosis. No dissection or occlusion. LEFT COMMON CAROTID ARTERY: Unremarkable. No significant stenosis. No dissection or occlusion. LEFT INTERNAL CAROTID ARTERY: There is mild atherosclerotic plaque formation of the origin of the right and left internal carotid artery with less than 50% cross sectional diameter stenosis. ALL ABOVE CRITERIA BY NASCET. LEFT EXTERNAL CAROTID ARTERY: Unremarkable. No occlusion. LEFT VERTEBRAL ARTERY: Unremarkable. No significant stenosis. No dissection or occlusion. LUNG APICES: See below. PLEURAL SPACE: Bilateral pleural effusions. Bilateral pneumonia. Partially visualized right apical pneumothorax. Right IJ line in place. SOFT TISSUES: Unremarkable. OTHER FINDINGS: ET tube and NG tube in place. There are degenerative findings of the cervical spine. Cervical spinal fusion hardware noted. CAROTID STENOSIS REFERENCE USING NASCET CRITERIA: % ICA stenosis = (1 - narrowest ICA diameter/diameter of distal cervical ICA) x 100. Mild - <50% stenosis. Moderate - 50-69% stenosis. Severe - 70-94% stenosis. Near occlusion - 95-99% stenosis. Occluded - 100% stenosis. CT/CTA Head AND Neck W/ Contrast IMPRESSION: 1. Bilateral pleural effusions. Bilateral pneumonia. Partially visualized right apical pneumothorax. Right IJ line in place. 2. There is mild atherosclerotic plaque formation of the origin of the right and left internal carotid artery with less than 50% cross sectional diameter stenosis. ALL ABOVE CRITERIA BY NASCET. 3. There is calcified plaque formation of the right cavernous carotid artery, with a mild stenosis (less than 50%). There is calcified plaque formation of the left cavernous carotid artery, with a mild stenosis (less than 50%). ALL ABOVE CRITERIA BY NASCET. Electronically Signed: Bear Zepeda MD at 21:05 EST ,
--- NOTE | 2021-09-03 19:12 | ED.RN ---
pt moving legs and looking around. dr noble notified. order for versed obtained
--- NOTE | 2021-09-03 19:12 | ED.RN ---
[employer] RETURN IN OG. TPA CANCELLED
[2021-09-03] MEDS: Midazolam 5 MG/ML Syringe IV (19:16)
[2021-09-03 19:17] LABS: Absolute Lymphocyte Count 2.49 X10^3/uL (0.83-4.51); Absolute Neutrophil Count 7.9 X10^3/uL (2.0-7.7); Basophil# 0.02 X10^3/uL; Basophil% 0.2 % (0-1); Eosinophil# 0.01 X10^3/uL; Eosinophils% 0.1 % (0-5); Hematocrit 45.6 % (37-47); Lymphocyte # 2.49 X10^3/ul (0.83-4.51); Lymphocyte % 22.9 % (19-41); Mean Corp Hgb Conc 32.9 g/dL (32-36); Mean Corpuscular Volume 97.2 fL (81-99); Mean Platelet Vol. 11.4 fl (6.2-12.0); Monocyte# 0.39 X10^3/uL; Monocyte% 3.6 % (0-10); NRBC Flagged by Analyzer 0 % (0-5); Neutrophil # 7.87 X10^3/uL (2.7-7.7); Neutrophil % 72.5 % (47-70); Platelet Count 210 K/mm3 (150-450); RBC Distribution Width CV 16.1 % (11.6-14.6); RBC Distribution Width SD 58.4 fl (35.1-43.9); Red Blood Count 4.69 M/mm3 (4.2-5.4); White Blood Count 10.9 K/mm3 (4.4-11.0)
--- NOTE | 2021-09-03 19:21 | ED.RN ---
pt to ct at this time
[2021-09-03] MEDS: 0.9% Normal Saline 1,000 ML 100 ML IV (19:32)
[2021-09-03 19:33] LABS: International Normalized Ratio 1.4; Prothrombin Time (Protime)PT. 16.4 SECONDS (11.7-14.9)
[2021-09-03 19:34] LABS: Partial Thromboplast Time 45.3 Seconds (24.1-36.2)
[2021-09-03 19:42] LABS: AST(SGOT) 38 U/L (15-37); Alanine Aminotransfer ALT/SGPT 17 U/L (13-56); Albumin, Serum 1.8 g/dL (3.2-5.0); Alkaline Phosphatase 61 U/L (45-117); Anion Gap 21 (5-15); BUN 15 mg/dL (7-18); BUN/Creat Ratio 9.5 RATIO (10-20); Bilirubin, Direct 0.23 mg/dL (0.00-0.30); Chloride 98 mmol/L (98-107); Creatinine, Serum 1.58 mg/dL (0.55-1.02); EST Glomerular Filtration Rate 35 mL/min (>60); Est Glom Filt Rate - Afr Amer 43 mL/min (>60); Estimated Creatinine Clearance 25.17 ml/min; Globulin 2.2 g/dL (2.2-4.2); Glucose 258 mg/dL (74-106); Potassium 2.5 mmol/L (3.5-5.1); Sodium Level 134 mmol/L (136-145); Troponin-I HS 155 pg/mL (3.0-54.0)
[2021-09-03 20:16] LABS: Base Excess -19 mmol/L (-2 to +2); Bicarbonate 10.2 mmol/L (22-26); Blood Gas Specimen Type ART; FI02 100; Mode AC; O2 Delivery Device Adult Vent; PEEP 5; PO2 108 mmHG (75-100); RR 16; SITE R Fem; SO2 96 % (95-99); Total Carbon Dioxide 11 mmol/L; Vt 440; pCO2 31.9 mmHg (35-45); pH 7.11 (7.35-7.45)
[2021-09-03 20:28] LABS: Mucous, Urine 0 SEEN /hpf (<or=2+); Red Blood Cells-Urine 0 SEEN /hpf (0-5)
[2021-09-03 20:33] LABS: Color, Urine Yellow (Yellow); Glucose, Dipstick Normal (Normal); Ketone-Dipstick Negative (Negative); Leukocyte Esterase-Dipstick 500 /ul (Negative); Nitrite-Dipstick Negative (Negative); Occult Blood-Urine 250 /ul (Negative); Protein-Dipstick 100 mg/dl (Negative); Urine Bilirubin Dipstick Negative (Negative); Urine Clarity Cloudy (Clear); Urine Urobilinogen Normal (Normal)
[2021-09-03 20:41] LABS: Bacteria 1+ /hpf (None Seen); Squamous Epithelial Cells - UA 10-25 SEEN /hpf (5-10); White Blood Cells 5-10 SEEN /hpf (0-5)
--- NOTE | 2021-09-03 21:23 | CM.ED ---
SW Note Referral Source: Case Find Referral Reason: NO PCP SW reviewed ED board and noted patient has no PCP. However, patient is on a vent and thus, at this time the conversation about PCP will be deferred. Sindy GARCIA
[2021-09-03 21:46] LABS: Magnesium 2.2 mg/dL (1.6-2.6); Phosphorus 6.3 mg/dL (2.5-4.9)
--- NOTE | 2021-09-03 21:49 | PCM.HP.STD ---
HPI - General General Date of Admission: 09/03/21 Date of Service: 09/03/21 Chief Complaint: Weakness, slurred speech. HPI Narrative The patient is a 61 y/o F w/ PMHx: Tobacco use, Chronic COPD, Chronic anemia, Chronic oropharyngeal dysphagia w/ strictures, Hypothyroidism, HLD, HTN, Anxiety and Depression, EtOH abuse (>3 drinks daily) w/ Chronic EtOH hepatitis, Severe protein calorie malnutrition who presents to the [facility] ED on 09/03/21 with history of onset slurred speech noted to be nonsensical starting at approximately 1700 with EMS call approximately 20 minutes following this with increasing confusion, dysarthria noted per EMS prompting ED transition. Patient's daughter was contacted upon her arrival and did report that she does drink daily but states she has not seen her in a while. Work-up in the ED included T 97.4, heart rate 107, BP 117/104, respiratory rate 10, 84 on Ambu bag initially with eventual significant hypotension with BP down to 65/55 with most recent vital signs T 95.2, heart rate 135, 95% mechanically ventilated with 100% FiO2, CBC with WBC 10.9, hemoglobin 15, platelet 210 with left shift, coags with PT 16.4, INR 1.4, PTT 45.3, ABG with pH 7.11, O2 saturation 96%, PCO2 31.9, PO2 108 obtained while intubated, CMP with sodium 135, potassium 2.5, carbon oxide 15, anion gap 21, BUN/creatinine 15/1.58, glucose 258, lactic acid pending per ED upon evaluation, calcium 16, ammonia 28, troponin 155, urinalysis with specific [place] 1.010, ketone negative, occult blood 250, negative nitrite, leukocyte esterase 500, urine WBCs 5-10 however squamous epithelial cells 10-25 with 1+ urine bacteria, ethyl alcohol 89, EKG with sinus tachycardia with no acute evidence of ischemia, blood culture x2 pending per ED, urine culture pending per ED, CT of the brain with no acute intracranial findings, CTA of the head and neck with mild atherosclerotic plaque formation origin right and left ICA with less than 50% cross-sectional diameter stenosis, calcified plaque formation right cavernous carotid artery with mild stenosis less than 50% as well as calcified plaque formation left cavernous carotid artery with mild stenosis less than 50%, incidentally noted bilateral pleural effusions with bilateral pneumonia, right IJ in place, partially visualized right apical pneumothorax. In the ED patient did have central line placed. As noted patient did have a small right apical pneumothorax and chest tube was placed by ED physician. Given significant severe hypotension in the ED patient was started on norepinephrine. [facility] Medical History (Updated 09/03/21 @ 22:[address] Oma Costa MD) Abnormal cardiac enzyme level Abnormal electrocardiogram Acute hypoxemic respiratory failure Alcohol use Anemia Anxiety Benign essential HTN Chronic alcoholic hepatitis Dysphagia Elevated troponin Esophageal stricture Esophagitis HLD (hyperlipidemia) Hypothyroidism Hypoxemia Migraines Post-menopausal Sleep apnea Smoker Stroke/cerebrovascular accident Medical History unable to obtain Home Medications acetaminophen [Tylenol] 650 mg PO Q6H PRN PRN #0 tab 05/08/21 [Rx Last Taken Unknown] albuterol sulfate 2.5 mg INHALATION Q2H PRN PRN #0 ml 05/08/21 [Rx Last Taken Unknown] amlodipine 10 mg PO DAILY #0 tab 05/08/21 [Rx Last Taken Unknown] aspirin 81 mg PO BREAKFAST #0 tab 05/08/21 [Rx Last Taken Unknown] atorvastatin 10 mg PO QHS #0 tab 05/08/21 [Rx Last Taken Unknown] metoprolol tartrate 25 mg PO BID #0 tab 05/08/21 [Rx Last Taken Unknown] pantoprazole 40 mg PO BID #0 tab 05/08/21 [Rx Last Taken Unknown] sennosides-docusate sodium [Stool Softener-Stimulant Laxat] 2 tab PO BID #0 tab 05/08/21 [Rx Last Taken Unknown] thiamine mononitrate (vit B1) 100 mg PO DAILY #30 tab 05/08/21 [Rx Last Taken Unknown] Allergy/AdvReac Type Severity Reaction Status Date / Time No Known Allergies Allergy Verified 05/01/21 12:57 Family History Brother Alcoholism Father CVA (cerebral vascular accident) other (Mother when she was 5 years old and she does not know any of her maternal family history.) Surgical History (Updated 09/03/21 @ 22:[address] Oma Costa MD) H/O resection of rib S/P dilatation of esophageal stricture S/P thyroid surgery S/P tonsillectomy and adenoidectomy Surgical History unable to obtain Social History household members: none Smoking Status: Current every day smoker tobacco type: cigarettes alcohol intake: current alcohol intake frequency: 3 or more drinks per day substance use type: does not use ROS Review of Systems ROS Unobtainable: due to encephalopathy Vital Signs Vital Signs Vital Signs: 09/03/21 17:59 09/03/21 18:19 09/03/21 18:20 Temperature 97.4 F L Temperature Source Axillary Pulse Rate 107 H 107 H 105 H Respiratory Rate 10 L 8 L Blood Pressure 117/104 H 50/40 L 50/40 L Blood Pressure Mean 108 43 43 Blood Pressure Source Blood Pressure Position Blood Pressure Location Pulse Ox Oxygen Delivery Method Room Air Non-Rebreather Non-Rebreather Oxygen Flow Rate (L/min) 15 Fraction of Inspired Oxygen (FIO2) 09/03/21 18:22 09/03/21 18:29 09/03/21 18:35 Temperature Temperature Source Pulse Rate 108 H 133 H Respiratory Rate 16 14 Blood Pressure 86/59 L 75/61 L 92/81 H Blood Pressure Mean 68 65 84 Blood Pressure Source Blood Pressure Position Blood Pressure Location Pulse Ox 84 100 Oxygen Delivery Method Ambu-Bag Mechanical Ventilator Oxygen Flow Rate (L/min) Fraction of Inspired Oxygen (FIO2) 100 100 09/03/21 18:39 09/03/21 18:40 09/03/21 18:41 Temperature 97.4 F L Temperature Source Axillary Pulse Rate 133 H 105 H Respiratory Rate 14 8 L Blood Pressure 104/89 H 86/59 L Blood Pressure Mean 94 68 Blood Pressure Source Blood Pressure Position Blood Pressure Location Pulse Ox 100 Oxygen Delivery Method Non-Rebreather Mechanical Ventilator Non-Rebreather Oxygen Flow Rate (L/min) 15 Fraction of Inspired Oxygen (FIO2) 100 100 100 09/03/21 18:45 09/03/21 18:55 09/03/21 19:00 Temperature Temperature Source Pulse Rate 132 H Respiratory Rate 14 Blood Pressure 109/91 H 109/57 L 66/51 L Blood Pressure Mean 97 74 56 Blood Pressure Source Blood Pressure Position Blood Pressure Location Pulse Ox 100 Oxygen Delivery Method Mechanical Ventilator Oxygen Flow Rate (L/min) Fraction of Inspired Oxygen (FIO2) 100 09/03/21 19:05 09/03/21 19:10 09/03/21 19:15 Temperature Temperature Source Pulse Rate 121 H 132 H Respiratory Rate 14 Blood Pressure 98/81 H 80/56 L 96/83 H Blood Pressure Mean 86 64 87 Blood Pressure Source Blood Pressure Position Blood Pressure Location Pulse Ox 97 Oxygen Delivery Method Mechanical Ventilator Oxygen Flow Rate (L/min) Fraction of Inspired Oxygen (FIO2) 09/03/21 19:23 09/03/21 19:28 09/03/21 19:50 Temperature 97.4 F L Temperature Source Axillary Pulse Rate 132 H Respiratory Rate 14 16 Blood Pressure 96/83 H 96/83 H Blood Pressure Mean 87 Blood Pressure Source Blood Pressure Position Blood Pressure Location Pulse Ox 97 Oxygen Delivery Method Mechanical Ventilator Oxygen Flow Rate (L/min) 15 Fraction of Inspired Oxygen (FIO2) 100 100 09/03/21 20:10 09/03/21 20:12 09/03/21 20:16 Temperature 97.4 F L Temperature Source Axillary Pulse Rate 131 H 131 H Respiratory Rate 14 14 Blood Pressure 65/55 L 65/55 L 68/55 L Blood Pressure Mean 58 58 59 Blood Pressure Source Monitor Blood Pressure Position Supine Blood Pressure Location Right Arm Pulse Ox 97 Oxygen Delivery Method Mechanical Ventilator Mechanical Ventilator Oxygen Flow Rate (L/min) Fraction of Inspired Oxygen (FIO2) 100 100 09/03/21 20:20 09/03/21 20:50 09/03/21 21:00 Temperature 95.6 F L 95.6 F L Temperature Source Core Core Pulse Rate 133 H 127 H 128 H Respiratory Rate 14 16 18 Blood Pressure 71/59 L 117/100 H 91/77 Blood Pressure Mean 63 105 81 Blood Pressure Source Monitor Blood Pressure Position Supine Blood Pressure Location Right Arm Pulse Ox 96 95 Oxygen Delivery Method Mechanical Ventilator Mechanical Ventilator Mechanical Ventilator Oxygen Flow Rate (L/min) Fraction of Inspired Oxygen (FIO2) 100 09/03/21 21:30 Temperature 95.2 F L Temperature Source Core Pulse Rate 135 H Respiratory Rate 18 Blood Pressure 102/88 H Blood Pressure Mean 92 Blood Pressure Source Blood Pressure Position Blood Pressure Location Pulse Ox 95 Oxygen Delivery Method Mechanical Ventilator Oxygen Flow Rate (L/min) Fraction of Inspired Oxygen (FIO2) Weight Weight: 92 lb 13.034 oz Body Mass Index (BMI) 18.1 Physical Exam Narrative Physical Examination: General: Sedated, not alert, not answering orientation questions, intubated, laying in the ED bed, ill-appearing, hypotensive. Skin: Normal color, normal turgor, no icterus, no cyanosis except for very staged abrasions. HEENT: AT/NC, EOM unable to be assessed, pupils minimally responsive, 3 mm bilaterally, dry MM, poor oral care evident, no carotid bruits or JVD noted. Lungs: Diminished, bilaterally coarse, symmetric rise, intubated, sedated, occasional expiratory wheeze, no rales. Heart: Tachycardic with regular rhythm; no gallop, rub audible. Abdomen: Soft, cachectic appearing habitus, NTTP, ND, hypoactive BS, no HSM. Extremities: No cyanosis, clubbing, or edema. Neurological: Sedated, not alert, not answering orientation questions, intubated, laying in the ED bed, ill-appearing, hypotensive, cognitive function not baseline intact; pupils minimally reactive, unable to assess cranial nerves, not moving extremities but currently sedated and intubated. Psychiatric: Affect appears flat, no acute evidence of depressive or anxiety feelings. Results Lab / Micro Data Result Diagrams: 09/03/21 18:55 09/03/21 18:55 Labs: Laboratory Results - last 24 hr 09/03/21 18:55: WBC 10.9, RBC 4.69, Hgb 15.0, Hct 45.6, MCV 97.2, MCH 32.0, MCHC 32.9, RDW Std Deviation 58.4 H, RDW Coeff of Richard 16.1 H, Plt Count 210, MPV 11.4, Immature Gran % (Auto) 0.700, Neut % (Auto) 72.5 H, Lymph % (Auto) 22.9, [place] % (Auto) 3.6, Eos % (Auto) 0.1, Baso % (Auto) 0.2, Absolute Neuts (auto) 7.9 H, Absolute Lymphs (auto) 2.49, Nucleated RBC % 0 09/03/21 18:55: PT 16.4 H, INR 1.4, APTT 45.3 H 09/03/21 18:55: Sodium 134 L, Potassium 2.5 L*, Chloride 98, Carbon Dioxide 15.0 L, Anion Gap 21 H, BUN 15, Creatinine 1.58 H, Estim Creat Clear Calc 25.17, Est GFR (MDRD) Af Amer 43 L, Est GFR (MDRD) Non-Af 35 L, BUN/Creatinine Ratio 9.5 L, Glucose 258 H, Calcium 16.0 H*, Total Bilirubin 0.90, Direct Bilirubin 0.23, AST 38 H, ALT 17, Alkaline Phosphatase 61, Troponin I High Sens 155 H*, Total Protein 4.0 L, Albumin 1.8 L, Globulin 2.2 09/03/21 18:55: Ethyl Alcohol 89.0 09/03/21 18:55: Ammonia 28.0 09/03/21 18:55: Phosphorus 6.3 H, Magnesium 2.2 09/03/21 20:00: Urine Color Yellow, Urine Clarity Cloudy, Urine pH 7.0, Ur Specific [place] 1.010, Urine Protein 100 H, Urine Glucose (UA) Normal, Urine Ketones Negative, Urine Occult Blood 250 H, Urine Nitrite Negative, Urine Bilirubin Negative, Urine Urobilinogen Normal, Ur Leukocyte Esterase 500 H, Urine RBC 0 SEEN, Urine WBC 5-10 SEEN, Ur Squamous Epith Cells 10-25 SEEN, Urine Bacteria 1+, Urine Mucus 0 SEEN 09/03/21 20:00: Ur Drug Screen Comment ABG Data ABG results: ABG 09/03/21 20:07 Specimen Type ART Sample Site R Fem pH 7.11 L* Bicarbonate Actual 10.2 L Total CO2 11 Base Excess -19 L O2 Saturation 96 O2 % 100 ABG pCO2 31.9 L ABG pO2 108 H Mohinder Test N/A Respiration Rate 16 O2 Delivery Device Adult Vent Vent Mode AC Tidal Volume 440 POC PEEP 5 Crit Call To/Read Back Yes Blood Gas Notified Whom le Radiology Impression Brain CT 09/03/21 18:03 IMPRESSION: No acute findings in the head/brain. Electronically Signed: Bear Zepeda MD at 18:13 EST Reading Location ID and State: [facility] / [place] , Service support , ADDENDUM: 09/03/21 3759 IMPRESSION: No acute findings in the head/brain. N.B. : The above Results were Read Back by Bear Zepeda MD to Abdoulaye Feng MD, and understanding confirmed on 09/03/2021 18:21:36 (ET). Electronically Signed: Bear Zepeda MD at 18:13 EST Reading Location ID and State: [facility] / [place] , Service support , Chest X-Ray 09/03/21 19:00 IMPRESSION: 1. 2 right jugular central venous catheter without pneumothorax. 2. Stable endotracheal tube and enteric tube. 3. Persistent left basilar density with question of pleural effusion. Electronically Signed: Kenji Luz DO at 19:30 EST Reading Location ID and State: [facility] / [place] Tel [phone], Service support , Head/Neck CTA 09/03/21 19:07 IMPRESSION: 1. Bilateral pleural effusions. Bilateral pneumonia. Partially visualized right apical pneumothorax. Right IJ line in place. 2. There is mild atherosclerotic plaque formation of the origin of the right and left internal carotid artery with less than 50% cross sectional diameter stenosis. ALL ABOVE CRITERIA BY NASCET. 3. There is calcified plaque formation of the right cavernous carotid artery, with a mild stenosis (less than 50%). There is calcified plaque formation of the left cavernous carotid artery, with a mild stenosis (less than 50%). ALL ABOVE CRITERIA BY NASCET. Electronically Signed: Bear Zepeda MD at 21:05 EST , ADDENDUM: 09/03/210 IMPRESSION: 1. Bilateral pleural effusions. Bilateral pneumonia. Partially visualized right apical pneumothorax. Right IJ line in place. 2. There is mild atherosclerotic plaque formation of the origin of the right and left internal carotid artery with less than 50% cross sectional diameter stenosis. ALL ABOVE CRITERIA BY NASCET. 3. There is calcified plaque formation of the right cavernous carotid artery, with a mild stenosis (less than 50%). There is calcified plaque formation of the left cavernous carotid artery, with a mild stenosis (less than 50%). ALL ABOVE CRITERIA BY NASCET. N.B. : The above Results were Read Back by Bear Zepeda MD to Ruben Khan MD, and understanding confirmed on 09/03/2021 21:13:07 (ET). Electronically Signed: Bear Zepeda MD at 21:05 EST Reading Location ID and State: [facility] / [place] , Service support , Assessment & Plan Assessment/Plan (1) Septic shock: (2) Pneumonia: QUALIFIERS: Pneumonia type: due to unspecified organism Laterality: bilateral Lung location: unspecified part of lung Qualified Code(s): J18.9 - Pneumonia, unspecified organism (3) COPD exacerbation: (4) Acute respiratory failure with hypoxia: (5) Pneumothorax on right: (6) CVA (cerebral vascular accident): QUALIFIERS: CVA mechanism: unspecified Qualified Code(s): I63.9 - Cerebral infarction, unspecified (7) GI bleed: QUALIFIERS: GI bleed type/associated pathology: unspecified gastrointestinal hemorrhage type Qualified Code(s): K92.2 - Gastrointestinal hemorrhage, unspecified PLAN: The patient is a 61 y/o F w/ PMHx: Tobacco use, Chronic COPD, Chronic anemia, Chronic oropharyngeal dysphagia w/ strictures, Hypothyroidism, HLD, HTN, Anxiety and Depression, EtOH abuse (>3 drinks daily) w/ Chronic EtOH hepatitis, Severe protein calorie malnutrition who presents to the [facility] ED on 09/03/21 with history of onset slurred speech noted to be nonsensical starting at approximately 1700 with EMS call approximately 20 minutes following this with increasing confusion, dysarthria noted per EMS prompting ED transition. #1. Acute Septic Shock secondary to Acute Hypooxic Respiratory Failure secondary to Bilateral Pneumonia, Possible GN/GP Organisms, Possible COVID-19 and concurrent Acute on Chronic COPD exacerbation: Will admit to the ICU, maintain intubated and sedated status, continue ICU consultation, continue NEP with wean as able, complete 30 cc/kg IVF bolus per protocol, LA pending upon evaluation, PRN albuterol, maintain on IV Zosyn and Vancomycin w/ pending MRSA screen with de-escalation as able, IV solumedrol, HOB, IS parameters w/ pending sputum cultures, respiratory viral panel, COVID PCR and urine antigens. Bld cx x 2 obtained in the ED. #2. Slurred Speech, confusion concerning for potential CVA: Given patient presentation certainly several reasons for this finding however to be thorough CT head and CTA head neck obtained in the ED as well as stroke alert. Patient not TPA candidate given evidence of concurrent GI bleed upon presentation. Will maintain in the ICU as noted with continued ICU driven protocol neurochecks, will obtain MRI of the brain, echocardiogram, PT/OT/speech/nutrition consultation per protocol, deferring any usage of antiplatelet therapy given concurrent GI bleed is noted, will continue high-dose statin, AM FLP, magnesium pending, TSH pending, hemoglobin A1c pending. #3. Small right apical pneumothorax: Potentially iatrogenic however higher suspicion for potential blood given underlying disease history, chest tube to be placed per ED physician especially given intubated status, will plan repeat chest x-ray a.m. and assume chest x-ray will be obtained by ED physician following intervention. #4. Acute GI Bleed with chronic anemia/Fe deficiency: Admission Hgb noted 15, prior range normally 8-9, noted coffee ground emesis in the ED, will maintain on IVFs, obtain serial H+H, maintain on IV PPI. GI consulted and pending. #5. Acute kidney injury: Secondary to acute presentation as noted #1. Admission BUN/Cr 15/1.58, prior baseline creatinine noted to be 0.6. Will hydrate, hold nephrotoxic medications and repeat chemistry in AM. If no improvement would plan FeNa and renal ultrasound assessment. #6. Indeterminate cardiac enzyme: EKG in ED sinus tachycardia with no acute evidence of ischemia, evidence of bilateral pulmonary infiltrates, initial troponin I 55, do suspect likely demand ischemia, will maintain on monitor, cycle cardiac enzymes, magnesium level requested. FLP in AM. Echocardiogram requested. Holding off on any aspirin therapy given GI bleed. #7. Hyperglycemia: Admission glucose significantly elevated to 58, suspect likely stress response, hemoglobin A1c requested. Will maintain on every 6 hours Accu-Chek with sliding scale. #8. Hypokalemia: Admission potassium 2.5, will continue aggressive supplementation per ICU electrolyte nurse driven protocol, magnesium level and phosphorus levels requested concurrently. #9. Hypercalcemia: Admission calcium 16, suspect likely associate with acute presentation but if truly significantly elevated could also likely be attributing to patient mental status changes, aggressively hydrated to the ED, will repeat level this evening and in a.m., PTH, ionized calcium, magnesium and phosphorus levels requested. Given presentation we will cautiously hold off on any acute treatment with Lasix or calcitonin given suspected secondary to acute presentation. #10. Severe protein calorie malnutrition: Evidenced by significantly reduced BMI, obvious muscle and fat loss, nutrition consulted for recommendations and input. #11. EtOH Abuse: Patient with prior reported history of consumption of at least 3 drinks per day. Magnesium and phosphorus levels pending. Will maintain on CIWA protocol, MVI, thiamine and folic acid. #12. Hypertension: Holding any regimen given acute presentation with septic shock as noted. #13. Hyperlipidemia: Changing to high-dose statin regimen. AM FLP. #14. Hypothyroidism: Continue home synthroid regimen, TSH pending. #15. Tobacco Abuse: Encourage cessation once patient more alert and consider RT consultation at that time as well as NR if desired. #16. GERD: Maintained on IV PPI as noted. #17. DVT prophylaxis: SCDs, defer any chemoprophylaxis given acute GI bleed evidence as well. #18. CODE STATUS: Full code per daughter. No living will or healthcare power of corporate attorney in place. Critical Care Time: 100 minutes, time from 19:30-21:10, were spent addressing patients acute presentation as noted #1, #2, #3, #4, #5, #6 and several other items, initiation of treatment, review of all data in collaboration with care team in addition to discussion with family. Charges/Coding Procedures Hospitalists Procedures: Other Procedure - See Report (Critical care time: [id number] x 1, [id number] x 1)
[2021-09-03 21:56] LABS: Hemoglobin A1c 4.7 % (3.8-5.6)
[2021-09-03 21:59] LABS: Amphetamine Urine VISTA POSITIVE (<1000 ng/mL); Barbiturate Urine VISTA NEGATIVE (< 200 ng/mL); Benzodiazepine Urine VISTA POSITIVE (< 200 ng/mL); Cocaine Urine VISTA NEGATIVE (< 300 ng/mL); Ecstacy Urine VISTA NEGATIVE (< 500 ng/mL); Methadone Urine VISTA NEGATIVE (< 300 ng/mL); PCP Urine VISTA NEGATIVE (< 25 ng/mL); THC Urine VISTA NEGATIVE (< 50 ng/mL); Vista UDS pH Range 7
[2021-09-03 22:15] LABS: Procalcitonin 0.92 ng/mL (0.00-0.09)
[2021-09-03] MEDS: Midazolam 2 MG/2 ML Syringe IV (22:22)
--- NOTE | 2021-09-03 22:43 | RAD_ITS ---
STUDY: X-RAY CHEST REASON FOR EXAM: Female, 61 years old. Chest tube placement. TECHNIQUE: Single AP portable view of the chest. COMPARISON: 09/03/2021 (3400). FINDINGS: There is a right-sided chest tube with its tip along the lateral aspect of the mediastinum. Stable endotracheal tube, enteric tube and right jugular central venous catheter. There is continued density at the left lung base with pleural effusion. There is no new mass or infiltrate. There is no demonstrated pleural abnormality. Normal size heart. Normal mediastinum and godfrey. Normal visualized pulmonary arteries. Normal visualized aortic arch and descending thoracic aorta. Normal visualized thoracic spine. Normal visualized ribs, clavicles, and shoulders. There is no demonstrated abnormality of the visualized soft tissue structures of the upper abdomen. RAD/Chest 1 View (Portable) IMPRESSION: Right sided chest tube without other interval change. Electronically Signed: Kenji Luz DO at 23:13 EST ,
[2021-09-03 22:55] LABS: Lactic Acid 10.3 mmol/L (0.4-1.9)
--- NOTE | 2021-09-03 23:01 | ED.RN ---
increase levo to 20mcg per md
[2021-09-04] VITALS (21 sets, daily range): BP systolic 35–134; BP diastolic 12–64; PULSE 0–123; RESP 14–25; TEMP 33.1–35.3; O2SAT 88–90; BMI 18.9
[2021-09-04] MEDS: 0.9% Normal Saline 1,000 ML 999 ML IV ×2 (00:30→02:12)
[2021-09-04] MEDS: 0.9% Normal Saline 1,000 ML 125 ML IV (00:30)
--- NOTE | 2021-09-04 00:30 | NURSING ---
0030 Upon arrival to unit sedation is turned off. Patient does not have gag or cough, pupils fixed and dialated, absence of corneal reflexes noted. Will get patient arranged in room and bring family in from waiting room.
--- NOTE | 2021-09-04 01:00 | NURSING ---
0100 Dr Costa at bedside discussing patients decline with family. Daughter Martha decides with Dr Costa to continue current treatments but to make patient a DNR-CCA at this time. More family called in to visit at this time. Patient remains unresponsive.
--- NOTE | 2021-09-04 01:15 | PCM.HOSP.N ---
Hospitalist Note Patient's family arrived to the ICU following patient admission. Discussed patient's current status and concerns with poor prognosis likely. Discussed CODE status at length including difference between FULL code, DNR-CCA and DNR-CC status. Following discussions about the differences in these status, requested transition to DNR-CCA, no re-intubation. Also, if patient continues to decline per discussions would re-discuss possible comfort transition in AM.
[2021-09-04 01:49] LABS: Reflex Lactate? Y
[2021-09-04] MEDS: Chlorhexidine 15 ML PO (02:07)
[2021-09-04] MEDS: Vancomycin IV 1,000 MG/200 ML BAG 200 MG IV (02:37)
--- NOTE | 2021-09-04 03:00 | NURSING ---
0300 Flaca Rogers (friend of patient) at bedside per daughters request. Flaca is noted to be POA per Daughter Martha and Flaca. Flaca and Martha converse and agree to keep patient a DNR-CCA. Family and friends remain at bedside to visit with each other and patient.
--- NOTE | 2021-09-04 03:40 | NURSING ---
[address] [facility] notified of absence of brain stem reflexes.
[2021-09-04] MEDS: Piperacil/Tazobactam 3.375 GM/50 ML ML IV (04:20)
--- NOTE | 2021-09-04 04:50 | PCM.RX.CS ---
Consult Pharmacy has been consulted to manage selected antiobiotic: Vancomycin Type of Consult: New start Labs: Sodium 134 mmol/L (136-145) L 09/03/21 18:55 Potassium 2.5 mmol/L (3.5-5.1) L* 09/03/21 18:55 Chloride 98 mmol/L (98-107) 09/03/21 18:55 Carbon Dioxide 15.0 mmol/L (21.0-32.0) L 09/03/21 18:55 Anion Gap 21 (5-15) H 09/03/21 18:55 BUN 15 mg/dL (7-18) 09/03/21 18:55 Creatinine 1.58 mg/dL (0.55-1.02) H 09/03/21 18:55 Est GFR (MDRD) Af Amer 43 mL/min (>60) L 09/03/21 18:55 Est GFR (MDRD) Non-Af 35 mL/min (>60) L 09/03/21 18:55 BUN/Creatinine Ratio 9.5 RATIO (10-20) L 09/03/21 18:55 Glucose 258 mg/dL (74-106) H 09/03/21 18:55 Microbiology: Microbiology 09/03/21 20:00 Urine Catheter - Hernandez Legionella Antigen - Final 09/03/21 20:00 Urine Catheter - Hernandez Streptococcus pneumoniae Antigen (M - Final Weight used for dosin.1 kg Estimated Creatinine Clearance: 25.17 Goal Trough: 15-20 mcg/mL Pharmacy Plan for Drug Dosing: Pharmacy Service will continue to monitor and adjust dosing as required. Medications Vancomycin HCl () 500 mg in 100 mls @ 100 mls/hr IV Q24H LUIS Discontinued Medications Vancomycin HCl (Vancomycin) 1,000 mg in 200 mls @ 200 mls/hr IV X1 ONE Stop: 09/04/21 01:59 Last Admin: 09/04/21 02:37 Dose: 200 mls/hr Documented by: Follow-Up Labs: Trough Vancomycin Labs to be done on [date and time ordered]: 09/06 @ 0200
--- NOTE | 2021-09-04 05:55 | RAD_ITS ---
STUDY: X-RAY CHEST REASON FOR EXAM: Female, 61 years old. Dyspnea, cough TECHNIQUE: Single AP portable view of the chest. COMPARISON: Comparison is made with prior study dated 09/03/2021. FINDINGS: And endotracheal tube is in situ. The tip is at 3.2 sinus proximal to the milton. An orogastric tube is seen with the tip below the left hemidiaphragm. A right-sided chest tube is in place with the tip in the medial aspect of the right lung apex. A right-sided central catheter is seen with the tip at the junction of the superior vena cava and right atrium. Stable left pleural effusion with left basilar infiltration and/or atelectasis. The right lung is clear. There is no evidence of pneumothorax. Normal size heart. Normal mediastinum and godfrey. Normal visualized pulmonary arteries. There is atherosclerotic calcification of the aortic arch with tortuosity. Normal visualized thoracic spine. Normal visualized ribs, clavicles, and shoulders. There is no demonstrated abnormality of the visualized soft tissue structures of the upper abdomen. RAD/Chest 1 View (Portable) IMPRESSION: Stable examination. All the support tubes are in good position. Electronically Signed: Itz Lockwood MD at 9:53 EST ,
--- NOTE | 2021-09-04 06:26 | CON.PCM.CC_ITS ---
Assessment & Plan Assessment/Plan (1) Acute respiratory failure: PLAN: RECOMMENDATIONS: 1. Continue assist control mode mechanical ventilation. Wean FiO2 to maintain saturations at or above 90%. 2. Continue chest tube to wall suction. 3. Continue broad-spectrum antimicrobials. 4. Continue vasopressor support in an attempt to maintain a mean arterial pressure at or above 65 mmHg. 5. Continue PPI therapy. IMPRESSIONS: 1. Acute hypoxemic respiratory failure Likely multifactorial with underlying pulmonary infectious etiology and COPD contributing. In addition, pulmonary embolism is also a possibility. However, given concerns for GI bleeding, systemic anticoagulation would be contraindicated at this time. The patient will be continued on assist control mode of mechanical ventilation. FiO2 and PEEP will be weaned to maintain saturations at or above 90%. Continue empiric antimicrobials as ordered, along with as needed bronchodilator therapy. 2. Septic shock Concern for underlying pulmonary infectious etiology. Continue supportive measures including antimicrobials and vasopressor support to maintain a mean arterial pressure at or above 65 mmHg. 3. Encephalopathy Concern for anoxic versus metabolic insult, given findings noted on examination today. Continue to withhold all sedating medications. Neurologic status portends a poor prognosis overall. 4. Acute kidney injury/hypokalemia Likely prerenal in etiology with ischemic ATN likely developing. Continue current supportive measures including vasopressor support to maintain hemodynamic stability. Aggressive electrolyte repletion will be undertaken. 5. History of esophageal stricture status post dilation/gastritis Continue PPI therapy as ordered and continue to monitor blood counts. Transfuse if hemoglobin drops below 7 g/dL. 6. History of chronic alcohol dependency/failure to thrive/malnutrition/history of alcohol hepatitis/hypothyroidism Complicates care, management, recovery and prognosis. Continue supportive measures as outlined above. Prognosis overall is quite poor. Anticipate further clinical decline. CODE STATUS was again confirmed to be DNR CCA. TIME: 38 minutes of critical care time, independent of procedures, was spent addressing the patient's acute hypoxemic respiratory failure, septic shock, encephalopathy, acute kidney injury, review of all data and collaboration with the care team. HPI Consult Data Date of Consult: 09/04/21 HPI Narrative Reason for Consultation: Acute hypoxemic respiratory failure, septic shock HPI Narrative: The patient is a 61-year-old female, with a history as outlined below, who presented to the emergency department via EMS on September 03 with altered mentation/unresponsiveness. Code stroke was called while in route to the hospital. The patient has a history of chronic alcohol dependency and drinks approximately a half a bottle of whiskey every day. According to documentation, the patient has lost a significant amount of weight over the last 6 months. She has a history of alcoholic hepatitis and esophageal strictures. She was last admitted to the hospital in April 2021 with respiratory failure following endoscopy. On presentation to the emergency department, the patient was noted to be afebrile and hemodynamically stable. Laboratory evaluation revealed no evidence of a leukocytosis. Chemistry profile was notable for a sodium of 134, potassium of 2.5, bicarbonate of 15 and creatinine of 1.58. Lactate was elevated to 10.3. Calcium was elevated to 16. Phosphorus was increased at 6.3. Troponin was elevated at 155. Toxicology screen was positive for amphetamines and benzodiazepines. Covid PCR was negative. CT head revealed no acute intracranial process. CTA head and neck demonstrated no large vessel occlusion. It did make incidental note of bilateral pleural effusions, pneumonia and a small right apical pneumothorax. A right-sided chest tube was subsequently placed. The patient received supplemental IV fluid hydration and was started on broad-spectrum antimicrobials along with vasopressor support to maintain he modynamic stability. She was subsequently transferred to the medical intensive care unit for further management. Overnight, the patient's clinical status has continued to worsen. She is currently on a combination of Levophed and vasopressin. Despite this, she remains hypotensive. The overnight hospitalist did discuss CODE STATUS with the patient's family and she was made DNR CCA. This morning, I was unable to palpate or Doppler either femoral or carotid pulses. Therefore, a bedside cardiac ultrasound was performed which did reveal limited cardiac contractility. [facility] Medical History (Updated 09/03/21 @ 23:[address] Ruben Khan DO) Abnormal cardiac enzyme level Abnormal electrocardiogram Acute hypoxemic respiratory failure Alcohol use Anemia Anxiety Benign essential HTN Chronic alcoholic hepatitis Dysphagia Elevated troponin Esophageal stricture Esophagitis HLD (hyperlipidemia) Hypothyroidism Hypoxemia Migraines Post-menopausal Sleep apnea Smoker Stroke/cerebrovascular accident Medical History unable to obtain Home Medications acetaminophen [Tylenol] 650 mg PO Q6H PRN PRN #0 tab 05/08/21 [Rx Last Taken Unknown] albuterol sulfate 2.5 mg INHALATION Q2H PRN PRN #0 ml 05/08/21 [Rx Last Taken Unknown] amlodipine 10 mg PO DAILY #0 tab 10/01/21 [Rx Last Taken Unknown] aspirin 81 mg PO BREAKFAST #0 tab 05/08/21 [Rx Last Taken Unknown] atorvastatin 10 mg PO QHS #0 tab 05/08/21 [Rx Last Taken Unknown] metoprolol tartrate 25 mg PO BID #0 tab 05/08/21 [Rx Last Taken Unknown] pantoprazole 40 mg PO BID #0 tab 05/08/21 [Rx Last Taken Unknown] sennosides-docusate sodium [Stool Softener-Stimulant Laxat] 2 tab PO BID #0 tab 05/08/21 [Rx Last Taken Unknown] thiamine mononitrate (vit B1) 100 mg PO DAILY #30 tab 05/08/21 [Rx Last Taken Unknown] Allergy/AdvReac Type Severity Reaction Status Date / Time No Known Allergies Allergy Verified 05/01/21 12:57 Family History Brother Alcoholism Father CVA (cerebral vascular accident) Surgical History (Updated 09/03/21 @ 22:[address] Oma Costa MD) H/O resection of rib S/P dilatation of esophageal stricture S/P thyroid surgery S/P tonsillectomy and adenoidectomy Surgical History unable to obtain Social History household members: none Smoking Status: Current every day smoker tobacco type: cigarettes alcohol intake: current alcohol intake frequency: 3 or more drinks per day substance use type: does not use ROS Review of Systems ROS Unobtainable: due to endotracheal tube and due to mental condition Physical Exam Const General Appearance: ill appearing, frail, intubated and patient mechanically ventilated Nutritional Appearance: cachectic and thin HEENT normocephalic and head/scalp atraumatic Mouth: endotracheal tube in place and OG tube in place Eyes Pupil: dilated and fixed Neck supple General: trachea midline and CVC in place Chest Chest Narrative: Increased AP diameter Chest: chest tube Resp Auscultation: diminished lung sounds Cardio Cardio Narrative: Unable to auscultate heart tones. GI soft to palpation and non-tender Extremity no clubbing, cyanosis or edema Skin no rashes or lesions noted General Skin Exam: mottling Neuro Neuro Narrative: The patient is completely unresponsive to verbal and tactile stimulation. Lab / Micro Data Result Diagrams: 09/03/21 18:55 09/03/21 18:55 Labs: Laboratory Results - last 24 hr 09/03/21 18:55: WBC 10.9, RBC 4.69, Hgb 15.0, Hct 45.6, MCV 97.2, MCH 32.0, MCHC 32.9, RDW Std Deviation 58.4 H, RDW Coeff of Richard 16.1 H, Plt Count 210, MPV 11.4, Immature Gran % (Auto) 0.700, Neut % (Auto) 72.5 H, Lymph % (Auto) 22.9, Bullock % (Auto) 3.6, Eos % (Auto) 0.1, Baso % (Auto) 0.2, Absolute Neuts (auto) 7.9 H, Absolute Lymphs (auto) 2.49, Nucleated RBC % 0 09/03/21 18:55: PT 16.4 H, INR 1.4, APTT 45.3 H 09/03/21 18:55: Sodium 134 L, Potassium 2.5 L*, Chloride 98, Carbon Dioxide 15.0 L, Anion Gap 21 H, BUN 15, Creatinine 1.58 H, Estim Creat Clear Calc 25.17, Est GFR (MDRD) Af Amer 43 L, Est GFR (MDRD) Non-Af 35 L, BUN/Creatinine Ratio 9.5 L, Glucose 258 H, Calcium 16.0 H*, Total Bilirubin 0.90, Direct Bilirubin 0.23, AST 38 H, ALT 17, Alkaline Phosphatase 61, Troponin I High Sens 155 H*, Total Protein 4.0 L, Albumin 1.8 L, Globulin 2.2 09/03/21 18:55: Ethyl Alcohol 89.0 09/03/21 18:55: Ammonia 28.0 09/03/21 18:55: Phosphorus 6.3 H, Magnesium 2.2 09/03/21 18:55: Hemoglobin A1c 4.7 09/03/21 20:00: Urine Color Yellow, Urine Clarity Cloudy, Urine pH 7.0, Ur Specific Lydia 1.010, Urine Protein 100 H, Urine Glucose (UA) Normal, Urine Ketones Negative, Urine Occult Blood 250 H, Urine Nitrite Negative, Urine Bilirubin Negative, Urine Urobilinogen Normal, Ur Leukocyte Esterase 500 H, Urine RBC 0 SEEN, Urine WBC 5-10 SEEN, Ur Squamous Epith Cells 10-25 SEEN, Urine Bacteria 1+, Urine Mucus 0 SEEN 09/03/21 20:00: Urine Opiates Screen NEGATIVE, Urine Methadone Screen NEGATIVE, Ur Barbiturates Screen NEGATIVE, Ur Phencyclidine Scrn NEGATIVE, Ur Amphetamines Screen POSITIVE H, U Methamphetamin-MDMA NEGATIVE, U Benzodiazepines Scrn POSITIVE H, Urine Cocaine Screen NEGATIVE, U Cannabinoids Screen NEGATIVE, Ur Drug Screen Comment 09/03/21 21:25: COVID-19 (DEMAR) Not Detected 09/03/21 21:40: Procalcitonin 0.92 H 09/03/21 21:40: Lactic Acid 10.3 H* Micro: Microbiology 09/03/21 20:00 Urine Catheter - Hernandez Legionella Antigen - Final 09/03/21 20:00 Urine Catheter - Hernandez Streptococcus pneumoniae Antigen (M - Final ABG Data ABG results: ABG 09/03/21 20:07 Specimen Type ART Sample Site R Fem pH 7.11 L* Bicarbonate Actual 10.2 L Total CO2 11 Base Excess -19 L O2 Saturation 96 O2 % 100 ABG pCO2 31.9 L ABG pO2 108 H Mohinder Test N/A Respiration Rate 16 O2 Delivery Device Adult Vent Vent Mode AC Tidal Volume 440 POC PEEP 5 Crit Call To/Read Back Yes Blood Gas Notified Whom le Radiology Impression Brain CT 09/03/21 18:03 IMPRESSION: No acute findings in the head/brain. Electronically Signed: Bear Zepeda MD at 18:13 EST , ADDENDUM: 09/03/21 1828 IMPRESSION: No acute findings in the head/brain. N.B. : The above Results were Read Back by Bear Zepeda MD to Abdoulaye Feng MD, and understanding confirmed on 09/03/2021 18:21:36 (ET). Electronically Signed: Bear Zepeda MD at 18:13 EST , Chest X-Ray 09/03/21 19:00 IMPRESSION: 1. 2 right jugular central venous catheter without pneumothorax. 2. Stable endotracheal tube and enteric tube. 3. Persistent left basilar density with question of pleural effusion. Electronically Signed: Kenji Luz at 19:30 EST , Head/Neck CTA 09/03/21 19:07 IMPRESSION: 1. Bilateral pleural effusions. Bilateral pneumonia. Partially visualized right apical pneumothorax. Right IJ line in place. 2. There is mild atherosclerotic plaque formation of the origin of the right and left internal carotid artery with less than 50% cross sectional diameter stenosis. ALL ABOVE CRITERIA BY NASCET. 3. There is calcified plaque formation of the right cavernous carotid artery, with a mild stenosis (less than 50%). There is calcified plaque formation of the left cavernous carotid artery, with a mild stenosis (less than 50%). ALL ABOVE CRITERIA BY NASCET. Electronically Signed: Bear Zepeda MD at 21:05 EST , ADDENDUM: 09/03/212119 IMPRESSION: 1. Bilateral pleural effusions. Bilateral pneumonia. Partially visualized right apical pneumothorax. Right IJ line in place. 2. There is mild atherosclerotic plaque formation of the origin of the right and left internal carotid artery with less than 50% cross sectional diameter stenosis. ALL ABOVE CRITERIA BY NASCET. 3. There is calcified plaque formation of the right cavernous carotid artery, with a mild stenosis (less than 50%). There is calcified plaque formation of the left cavernous carotid artery, with a mild stenosis (less than 50%). ALL ABOVE CRITERIA BY NASCET. N.B. : The above Results were Read Back by Bear Zepeda MD to Ruben Khan MD, and understanding confirmed on 09/03/2021 21:13:07 (ET). Electronically Signed: Bear Zepeda MD at 21:05 EST , Chest X-Ray 09/03/21 22:43 IMPRESSION: Right sided chest tube without other interval change. Electronically Signed: Kenji Luz DO at 23:13 EST Reading Location ID and State: [address] [place] [address] Tel [phone], Service support , Charges/Coding Procedures Hospitalists Procedures: [id number] [facility]
[2021-09-04] MEDS: Dextrose 10%-Water 250 ML 999 ML IV (06:50)
--- NOTE | 2021-09-04 06:50 | NURSING ---
Dr Goetz notified of Blood glucose of 13, new orders obtained.
[2021-09-04 06:56] LABS: Bedside Glucose 13 mg/dL (70-110)
--- NOTE | 2021-09-04 07:22 | PCM.PN.HOSP ---
Objective Data Objective Data Vital Signs: Vital Signs Temp Pulse Resp BP Pulse Ox 92.8 F L 79 14 93/12 L 90 09/04/21 06:00 09/04/21 06:00 09/04/21 06:00 09/04/21 06:00 09/04/21 01:40 Oxygen Flow Rate (L/min) 15 Oxygen Delivery Method Mechanical Ventilator Weight: 42.1 kg Body Mass Index (BMI) 18.1 Intake & Output: Intake and Output for Last 24 Hours 09/02/21 09/03/21 09/04/21 23:59 23:59 23:59 Intake Total 62.42 / 62.42 3344.58 / 3344.58 Balance 62.42 / 62.42 3344.58 / 3344.58 Lab / Micro Data Result Diagrams: 09/03/21 18:55 09/03/21 18:55 Labs: Laboratory Results - last 24 hr 09/03/21 18:55: WBC 10.9, RBC 4.69, Hgb 15.0, Hct 45.6, MCV 97.2, MCH 32.0, MCHC 32.9, RDW Std Deviation 58.4 H, RDW Coeff of Richard 16.1 H, Plt Count 210, MPV 11.4, Immature Gran % (Auto) 0.700, Neut % (Auto) 72.5 H, Lymph % (Auto) 22.9, [place] % (Auto) 3.6, Eos % (Auto) 0.1, Baso % (Auto) 0.2, Absolute Neuts (auto) 7.9 H, Absolute Lymphs (auto) 2.49, Nucleated RBC % 0 09/03/21 18:55: PT 16.4 H, INR 1.4, APTT 45.3 H 09/03/21 18:55: Sodium 134 L, Potassium 2.5 L*, Chloride 98, Carbon Dioxide 15.0 L, Anion Gap 21 H, BUN 15, Creatinine 1.58 H, Estim Creat Clear Calc 25.17, Est GFR (MDRD) Af Amer 43 L, Est GFR (MDRD) Non-Af 35 L, BUN/Creatinine Ratio 9.5 L, Glucose 258 H, Calcium 16.0 H*, Total Bilirubin 0.90, Direct Bilirubin 0.23, AST 38 H, ALT 17, Alkaline Phosphatase 61, Troponin I High Sens 155 H*, Total Protein 4.0 L, Albumin 1.8 L, Globulin 2.2 09/03/21 18:55: Ethyl Alcohol 89.0 09/03/21 18:55: Ammonia 28.0 09/03/21 18:55: Phosphorus 6.3 H, Magnesium 2.2 09/03/21 18:55: Hemoglobin A1c 4.7 09/03/21 20:00: Urine Color Yellow, Urine Clarity Cloudy, Urine pH 7.0, Ur Specific [place] 1.010, Urine Protein 100 H, Urine Glucose (UA) Normal, Urine Ketones Negative, Urine Occult Blood 250 H, Urine Nitrite Negative, Urine Bilirubin Negative, Urine Urobilinogen Normal, Ur Leukocyte Esterase 500 H, Urine RBC 0 SEEN, Urine WBC 5-10 SEEN, Ur Squamous Epith Cells 10-25 SEEN, Urine Bacteria 1+, Urine Mucus 0 SEEN 09/03/21 20:00: Urine Opiates Screen NEGATIVE, Urine Methadone Screen NEGATIVE, Ur Barbiturates Screen NEGATIVE, Ur Phencyclidine Scrn NEGATIVE, Ur Amphetamines Screen POSITIVE H, U Methamphetamin-MDMA NEGATIVE, U Benzodiazepines Scrn POSITIVE H, Urine Cocaine Screen NEGATIVE, U Cannabinoids Screen NEGATIVE, Ur Drug Screen Comment 09/03/21 21:25: COVID-19 (DEMAR) Not Detected 09/03/21 21:40: Procalcitonin 0.92 H 09/03/21 21:40: Lactic Acid 10.3 H* 09/04/21 06:52: POC Glucose 13 L* Micro: Microbiology 09/03/21 20:00 Urine Catheter - Hernandez Legionella Antigen - Final 09/03/21 20:00 Urine Catheter - Hernandez Streptococcus pneumoniae Antigen (M - Final ABG Data ABG results: ABG 09/03/21 20:07 Specimen Type ART Sample Site R Fem pH 7.11 L* Bicarbonate Actual 10.2 L Total CO2 11 Base Excess -19 L O2 Saturation 96 O2 % 100 ABG pCO2 31.9 L ABG pO2 108 H Mohinder Test N/A Respiration Rate 16 O2 Delivery Device Adult Vent Vent Mode AC Tidal Volume 440 POC PEEP 5 Crit Call To/Read Back Yes Blood Gas Notified Whom le Radiography Diagnostic Testing: Radiology Impression Brain CT 09/03/21 18:03 IMPRESSION: No acute findings in the head/brain. Electronically Signed: Bear Zepeda MD at 18:13 EST , ADDENDUM: 09/03/21 1828 IMPRESSION: No acute findings in the head/brain. N.B. : The above Results were Read Back by Bear Zepeda MD to Abdoulaye Feng MD, and understanding confirmed on 09/03/2021 18:21:36 (ET). Electronically Signed: Bear Zepeda MD at 18:13 EST , Chest X-Ray 09/03/21 19:00 IMPRESSION: 1. 2 right jugular central venous catheter without pneumothorax. 2. Stable endotracheal tube and enteric tube. 3. Persistent left basilar density with question of pleural effusion. Electronically Signed: Kenji Luz DO at 19:30 EST Reading Location ID and State: [facility] / [place] Tel [phone], Service support , Head/Neck CTA 09/03/21 19:07 IMPRESSION: 1. Bilateral pleural effusions. Bilateral pneumonia. Partially visualized right apical pneumothorax. Right IJ line in place. 2. There is mild atherosclerotic plaque formation of the origin of the right and left internal carotid artery with less than 50% cross sectional diameter stenosis. ALL ABOVE CRITERIA BY NASCET. 3. There is calcified plaque formation of the right cavernous carotid artery, with a mild stenosis (less than 50%). There is calcified plaque formation of the left cavernous carotid artery, with a mild stenosis (less than 50%). ALL ABOVE CRITERIA BY NASCET. Electronically Signed: Bear Zepeda MD at 21:05 EST , ADDENDUM: 09/03/212119 IMPRESSION: 1. Bilateral pleural effusions. Bilateral pneumonia. Partially visualized right apical pneumothorax. Right IJ line in place. 2. There is mild atherosclerotic plaque formation of the origin of the right and left internal carotid artery with less than 50% cross sectional diameter stenosis. ALL ABOVE CRITERIA BY NASCET. 3. There is calcified plaque formation of the right cavernous carotid artery, with a mild stenosis (less than 50%). There is calcified plaque formation of the left cavernous carotid artery, with a mild stenosis (less than 50%). ALL ABOVE CRITERIA BY NASCET. N.B. : The above Results were Read Back by Bear Zepeda MD to Ruben Khan MD, and understanding confirmed on 09/03/2021 21:13:07 (ET). Electronically Signed: Bear Zepeda MD at 21:05 EST Reading Location ID and State: [facility] - [place] / [place] , Service support , Chest X-Ray 09/03/21 22:43 IMPRESSION: Right sided chest tube without other interval change. Electronically Signed: Kenji Luz DO at 23:13 EST Reading Location ID and State: [address] [place] [address] Tel [phone], Service support , Assessment & Plan Assessment/Plan (1) Septic shock: (2) Pneumonia: QUALIFIERS: Pneumonia type: due to unspecified organism Laterality: bilateral Lung location: unspecified part of lung Qualified Code(s): J18.9 - Pneumonia, unspecified organism (3) COPD exacerbation: (4) Acute respiratory failure with hypoxia: (5) Pneumothorax on right: (6) CVA (cerebral vascular accident): QUALIFIERS: CVA mechanism: unspecified Qualified Code(s): I63.9 - Cerebral infarction, unspecified (7) GI bleed: QUALIFIERS: GI bleed type/associated pathology: unspecified gastrointestinal hemorrhage type Qualified Code(s): K92.2 - Gastrointestinal hemorrhage, unspecified PLAN: The patient is a 61 y/o F w/ PMHx: Tobacco use, Chronic COPD, Chronic anemia, Chronic oropharyngeal dysphagia w/ strictures, Hypothyroidism, HLD, HTN, Anxiety and Depression, EtOH abuse (>3 drinks daily) w/ Chronic EtOH hepatitis, Severe protein calorie malnutrition who presents to the [facility] ED on 09/03/21 with history of onset slurred speech noted to be nonsensical starting at approximately 1700 with EMS call approximately 20 minutes following this with increasing confusion, dysarthria noted per EMS prompting ED transition. 1. Acute Septic Shock secondary to Acute Hypooxic Respiratory Failure secondary to Bilateral Pneumonia, Possible GN/GP Organisms, Possible COVID-19 and concurrent Acute on Chronic COPD exacerbation: Will admit to the ICU, maintain intubated and sedated status, continue ICU consultation, continue NEP with wean as able, complete 30 cc/kg IVF bolus per protocol, LA pending upon evaluation, PRN albuterol, maintain on IV Zosyn and Vancomycin w/ pending MRSA screen with de-escalation as able, IV solumedrol, HOB, IS parameters w/ pending sputum cultures, respiratory viral panel, COVID PCR and urine antigens. Bld cx x 2 obtained in the ED. 2. Slurred Speech, confusion concerning for potential CVA: Given patient presentation certainly several reasons for this finding however to be thorough CT head and CTA head neck obtained in the ED as well as stroke alert. Patient not TPA candidate given evidence of concurrent GI bleed upon presentation. Will maintain in the ICU as noted with continued ICU driven protocol neurochecks, will obtain MRI of the brain, echocardiogram, PT/OT/speech/nutrition consultation per protocol, deferring any usage of antiplatelet therapy given concurrent GI bleed is noted, will continue high-dose statin, AM FLP, magnesium pending, TSH pending, hemoglobin A1c pending. 3. Small right apical pneumothorax: Potentially iatrogenic however higher suspicion for potential blood given underlying disease history, chest tube to be placed per ED physician especially given intubated status, will plan repeat chest x-ray a.m. and assume chest x-ray will be obtained by ED physician following intervention. 4. Acute GI Bleed with chronic anemia/Fe deficiency: Admission Hgb noted 15, prior range normally 8-9, noted coffee ground emesis in the ED, will maintain on IVFs, obtain serial H+H, maintain on IV PPI. GI consulted and pending. 5. Acute kidney injury: Secondary to acute presentation as noted #1. Admission BUN/Cr 15/1.58, prior baseline creatinine noted to be 0.6. Will hydrate, hold nephrotoxic medications and repeat chemistry in AM. If no improvement would plan FeNa and renal ultrasound assessment. 6. Indeterminate cardiac enzyme: EKG in ED sinus tachycardia with no acute evidence of ischemia, evidence of bilateral pulmonary infiltrates, initial troponin I 55, do suspect likely demand ischemia, will maintain on monitor, cycle cardiac enzymes, magnesium level requested. FLP in AM. Echocardiogram requested. Holding off on any aspirin therapy given GI bleed. 7. Hyperglycemia: Admission glucose significantly elevated to 58, suspect likely stress response, hemoglobin A1c requested. Will maintain on every 6 hours Accu-Chek with sliding scale. 8. Hypokalemia: Admission potassium 2.5, will continue aggressive supplementation per ICU electrolyte nurse driven protocol, magnesium level and phosphorus levels requested concurrently. 9. Hypercalcemia: Admission calcium 16, suspect likely associate with acute presentation but if truly significantly elevated could also likely be attributing to patient mental status changes, aggressively hydrated to the ED, will repeat level this evening and in a.m., PTH, ionized calcium, magnesium and phosphorus levels requested. Given presentation we will cautiously hold off on any acute treatment with Lasix or calcitonin given suspected secondary to acute presentation. 10. Severe protein calorie malnutrition: Evidenced by significantly reduced BMI, obvious muscle and fat loss, nutrition consulted for recommendations and input. 11. EtOH Abuse: Patient with prior reported history of consumption of at least 3 drinks per day. Magnesium and phosphorus levels pending. Will maintain on CIWA protocol, MVI, thiamine and folic acid. 12. Hypertension: Holding any regimen given acute presentation with septic shock as noted. 13. Hyperlipidemia: Changing to high-dose statin regimen. AM FLP. 14. Hypothyroidism: Continue home synthroid regimen, TSH pending. 15. Tobacco Abuse: Encourage cessation once patient more alert and consider RT consultation at that time as well as NR if desired. 16. GERD: Maintained on IV PPI as noted. 17. DVT prophylaxis: SCDs, defer any chemoprophylaxis given acute GI bleed evidence as well. 18. CODE STATUS: Full code per daughter. No living will or healthcare power of criminal attorney in place.
[2021-09-04 07:56] LABS: Bedside Glucose 446 mg/dL (70-110)
--- NOTE | 2021-09-04 09:15 | NURSING ---
Addendum entered by Lori Roper 09/04/21 10:45: [facility] notified and patient was not a candidate for organ donation. Original Note: Patient HR dropped to the 20s and then asystole. This RN and A. Bronson RN at bedside. No heart beat heard, no pulse heard on the doppler. Time of 0910. Dr. Goetz and Dr. Wick notified. Family was present at bedside.
--- NOTE | 2021-09-04 09:23 | CASEMGMT ---
Social Work SW met with pt family in room and in waiting room. Emotional support provided. Family aware that SW will remain available if needed. SERGIO Fox
--- NOTE | 2021-09-04 10:02 | PCM.DEATH ---
Preliminary Cause of Preliminary Cause of Preliminary Cause of : Septic shock secondary to suspected aspiration pneumonia Acute hypoxic respiratory failure secondary to aspiration pneumonia Principle Diagnosis Problem List: Active and Suspected Problems (Updated 09/03/21 @ 23:[address] Ruben Khan DO) Acute respiratory failure (Acute) Altered mental status (Acute) Acute upper GI bleed (Acute) Non-ST elevation [place] (NSTEMI) (Acute) Acute hypokalemia (Acute) GI bleed (Acute) CVA (cerebral vascular accident) (Acute) Pneumothorax on right (Acute) Acute respiratory failure with hypoxia (Acute) Pneumonia (Acute) Septic shock (Acute) Metabolic encephalopathy (Acute) Hospital Course Patient is a 61-year-old lady with history of chronic alcohol dependency who presented to the emergency department with decreased level of sensorium. A suspicion of acute CVA was entertained. Patient diagnostic data obtained on admission was consistent with lactic acidosis lactic acid level of 10.3 thought to be secondary to an infectious etiology most likely aspiration pneumonia. Patient hospital condition continued to deteriorate resulting in patient being intubated and admitted to the intensive care unit. Patient was started on Levophed and vasopressin in view of persistent hypotension which had failed to respond to fluids. Despite patient being on optimal medical management she continued to decline. Discussions were held with the family. CODE STATUS was changed to DNR CCA. Patient was found without heart tones as well as spontaneous breathing at 0910 on 09/04/2021. Patient was pronounced with family by her side. Visit Charges Inpatient E&M: 28341 Disch Hosp
== END 2021-09-04 11:10 | DRG 871 ==
LOC: ED 18:29 → ICU 21:45
PROVIDERS: Admitting Provider Family Medicine; Emergency Provider Emergency Medicine; Visit Provider Internal Medicine
DX: A41.9 Sepsis, unspecified organism (principal); R65.21 Severe sepsis with septic shock; J96.01 Acute respiratory failure with hypoxia; I63.9 Cerebral infarction, unspecified; J69.0 Pneumonitis due to inhalation of food and vomit; G93.41 Metabolic encephalopathy; I21.3 ST elevation (STEMI) myocardial infarction of unspecified site; E43 Unspecified severe protein-calorie malnutrition; K92.2 Gastrointestinal hemorrhage, unspecified; N17.9 Acute kidney failure, unspecified; J44.1 Chronic obstructive pulmonary disease with (acute) exacerbation; J44.0 Chronic obstructive pulmonary disease with (acute) lower respiratory infection; E87.2 Acidosis; J95.811 Postprocedural pneumothorax; Z68.1 Body mass index [BMI] 19.9 or less, adult; J44.9 Chronic obstructive pulmonary disease, unspecified; F10.20 Alcohol dependence, uncomplicated; E78.5 Hyperlipidemia, unspecified; I10 Essential (primary) hypertension; E87.6 Hypokalemia; F17.210 Nicotine dependence, cigarettes, uncomplicated; K21.9 Gastro-esophageal reflux disease without esophagitis; E03.9 Hypothyroidism, unspecified; G47.30 Sleep apnea, unspecified; F41.9 Anxiety disorder, unspecified; K70.10 Alcoholic hepatitis without ascites; D50.9 Iron deficiency anemia, unspecified; E83.52 Hypercalcemia; Z79.82 Long term (current) use of aspirin; Z86.73 Personal history of transient ischemic attack (TIA), and cerebral infarction without residual deficits; Z91.14 Patient's other noncompliance with medication regimen; R47.1 Dysarthria and anarthria; R13.10 Dysphagia, unspecified; Z78.0 Asymptomatic menopausal state; F32.A Depression, unspecified; R13.12 Dysphagia, oropharyngeal phase; Z20.822 Contact with and (suspected) exposure to COVID-19; R73.9 Hyperglycemia, unspecified
CPT/HCPCS: 31500; 32551; 36600; 70450; 70496; 70498; 71045; 80048; 80076; 80307; 81001; 82077; 82140; 82803; 82962; 83036; 83605; 83735; 84100; 84145; 84484; 85025; 85610; 85730; 87040; 87449; 87633; 87635; 93005; 94002; 94003; 99251; 99285; J2997; J7030; J7050; Q9967; A4216; C1751; G0463; J0330; J3010; J3490; U0003; U0005